=== PATIENT | female | born 1955 | race Caucasian/White ===

== ENCOUNTER 2020-08-25 | Outpatient (REF) | payer MEDICARE, SELFPAY ==
[2020-08-25 16:33] LABS: Glucose Urine UA NEG (NEG); Nitrite Urine NEG (NEG); Specific Gravity - Urine 1.015 (1.005-1.025); Urine Blood 3+ (NEG); Urine Ketones NEG (NEG); Urine Protein 2+ MG/DL (NEG-TRACE)
[2020-08-25 16:38] LABS: Appearance Urine CLOUDY; Color Urine YELLOW; Leukocyte Esterase Urine 3+ (NEG)
[2020-08-25 16:40] LABS: Bacteria Urine 2+ /LPF; WBC Urine 30-49 /HPF (0-4)
== END 2020-08-25 00:01 | disposition home or self-care (01) ==
LOC: CF
PROVIDERS: Visit Provider Internal Medicine
DX: R30.0 Dysuria (principal)
CPT/HCPCS: 81001; 87086; 87088; 87186

== ENCOUNTER 2021-02-23 11:42 | Outpatient (REF) | payer MEDICARE, SELFPAY ==
--- NOTE | ~2021-02-23 | MM_ITS ---
EXAMINATION: MM SCREENING DIGITAL BREAST TOMOSYNTHESIS, BILATERAL CLINICAL INFORMATION: Screening. Asymptomatic. History colon cancer. The lifetime risk of breast cancer based on the Tyrer-Cuzick Model is 4%. COMPARISON: Mammography: 11/16/2019, 10/14/2018, 09/15/2017 TECHNIQUE: Digital breast tomosynthesis is performed in both the craniocaudal and mediolateral oblique views along with computer-aided detection (CAD). Synthesized 2D images are generated from the tomosynthesis. FINDINGS: There are scattered areas of fibroglandular density (ACR BI-RADS breast composition Category b). There are no significant masses, abnormal calcifications, or other abnormalities. Parenchymal pattern is similar to prior studies. No developing density. There is a port partially overlying the posterior upper right axilla on the MLO view. MM/MM tomosynthesis screening BI IMPRESSION: No mammographic evidence of malignancy. ASSESSMENT: BI-RADS 2: Benign RECOMMENDATION: Routine annual mammography screening. This patient's information was entered into a reminder system with a target due date for their next mammogram.
== END 2021-02-23 11:43 | disposition home or self-care (01) ==
LOC: HO.MAMMO 11:42
PROVIDERS: PCP Internal Medicine; Visit Provider Internal Medicine
DX: Z12.31 Encounter for screening mammogram for malignant neoplasm of breast (principal)
CPT/HCPCS: 77063; 77067

== ENCOUNTER 2021-06-27 12:38 | Outpatient (REF) | payer MEDICARE, SELFPAY ==
--- NOTE | ~2021-06-27 | XR_ITS ---
EXAMINATION: XR SHOULDER, LEFT CLINICAL INFORMATION: Left shoulder pain. COMPARISON: None TECHNIQUE: AP external rotation, Grashey, scapular Y, and axillary views of the left shoulder. FINDINGS: Some minimal degenerative changes are present with some mild sclerotic changes at the inferior glenoid. The bones and soft tissues are otherwise normal. No fracture. Glenohumeral and acromioclavicular alignment is anatomic with normal joint space. No abnormal soft tissue calcifications. XR/XR shoulder LT min 2V IMPRESSION: Some minimal degenerative changes left shoulder.
[2021-06-27 13:56] LABS: Anion Gap 13 (12-20); Blood Urea Nitrogen 23 mg/dL (9-16); Calcium 9.5 mg/dL (8.4-10.2); Carbon Dioxide 24 mmol/L (22-29); Chloride 109 mmol/L (96-108); Estimated Glomerular Filt Rate 45; Glucose Random 105 mg/dL (60-115); Potassium 4.6 mmol/L (3.3-5.1); Sodium 141 mmol/L (135-145)
== END 2021-06-27 12:39 | disposition home or self-care (01) ==
LOC: HO.XRAY 12:38
PROVIDERS: PCP Internal Medicine; Visit Provider Internal Medicine
DX: I10 Essential (primary) hypertension (principal); N13.30 Unspecified hydronephrosis; M25.512 Pain in left shoulder
CPT/HCPCS: 36415; 73030; 80048

== ENCOUNTER 2022-01-01 16:32 | Outpatient (REF) | payer MEDICARE, SELFPAY ==
[2022-01-01 17:14] LABS: MANUAL DIFF FLAG NO
[2022-01-01 18:00] LABS: Basophils Percent Auto 0.2 % (0-2); Eosinophils Absolute Auto 0.2 X10*3/uL (0.0-0.4); Eosinophils Percent Auto 4.7 % (0-4); Hematocrit 36.6 % (37.0-47.0); Hemoglobin 11.6 g/dl (12.0-16.0); Imm Gran Abs Auto 0.02 X10*3/uL (0.00-0.03); Imm Gran Pct Auto 0.4 % (0.0-0.4); Lymphocytes Absolute Auto 0.9 X10*3/uL (1.2-4.9); Lymphocytes Percent Auto 18.6 % (20-40); Mean Corpuscular HGB Conc 31.7 g/dl (31.0-35.0); Mean Corpuscular Hemoglobin 28.1 pg (27.0-33.0); Mean Corpuscular Volume 88.6 fL (80.0-98.0); Monocytes Absolute Auto 0.7 X10*3/uL (0.1-1.2); Monocytes Percent Auto 14.7 % (2-11); Neutrophils Percent Auto 61.4 % (45-73); Platelet Count 251 X10*3/uL (160-400); Red Blood Count 4.13 X10*6/uL (4.20-5.50); Red Cell Distribution Width 13.4 % (11.0-16.0); White Blood Count 4.9 X10*3/uL (4.8-10.8)
[2022-01-01 18:25] LABS: Alanine Aminotransferase 18 U/L (0-31); Albumin Level 4.2 g/dL (3.5-5.0); Alkaline Phosphatase 84 U/L (39-117); Anion Gap 14 (12-20); Aspartate Amino Transferase 22 U/L (5-31); Bilirubin Total 0.3 mg/dL (0.0-1.0); Blood Urea Nitrogen 22 mg/dL (9-16); C Reactive Protein 1.92 mg/dL (< or = 0.50); Calcium 9.6 mg/dL (8.4-10.2); Carbon Dioxide 23 mmol/L (22-29); Chloride 108 mmol/L (96-108); Estimated Glomerular Filt Rate 39; Glucose Random 97 mg/dL (60-115); Potassium 4.6 mmol/L (3.3-5.1); Sodium 140 mmol/L (135-145); Total Protein 7.4 g/dL (6.5-8.0)
== END 2022-01-01 16:33 | disposition home or self-care (01) ==
LOC: HO.LAB 16:32
PROVIDERS: PCP Internal Medicine; Visit Provider Internal Medicine
DX: R21 Rash and other nonspecific skin eruption (principal)
CPT/HCPCS: 36415; 80053; 85025; 86140

== ENCOUNTER 2022-03-14 11:31 | Outpatient (REF) | payer MEDICARE, SELFPAY ==
--- NOTE | ~2022-03-14 | MM_ITS ---
EXAMINATION: MM SCREENING DIGITAL BREAST TOMOSYNTHESIS, BILATERAL CLINICAL INFORMATION: Screening. Asymptomatic. The lifetime risk of breast cancer based on the Tyrer-Cuzick Model is 4.8%. COMPARISON: Mammography: February 23, 2021 and studies dating back to June 14, 2014 TECHNIQUE: Digital breast tomosynthesis is performed in both the craniocaudal and mediolateral oblique views along with computer-aided detection (CAD). Synthesized 2D images are generated from the tomosynthesis. FINDINGS: There are scattered areas of fibroglandular density (ACR BI-RADS breast composition Category b). There are no significant masses, abnormal calcifications, or other abnormalities. MM/MM tomosynthesis screening BI IMPRESSION: There are no significant changes from prior study. ASSESSMENT: BI-RADS 1: Negative RECOMMENDATION: Routine annual mammography screening. This patient's information was entered into a reminder system with a target due date for their next mammogram.
== END 2022-03-14 11:32 | disposition home or self-care (01) ==
LOC: HO.MAMMO 11:31
PROVIDERS: Visit Provider Internal Medicine
DX: Z12.31 Encounter for screening mammogram for malignant neoplasm of breast (principal)
CPT/HCPCS: 77063; 77067

== ENCOUNTER 2022-09-30 15:28 | Inpatient (IN) | payer MEDICARE, SELFPAY ==
[2022-09-30] VITALS (9 sets, daily range): BP systolic 109–164; BP diastolic 48–70; PULSE 90–107; RESP 18–40; TEMP 36.3–37; O2SAT 87–98; BMI 23.8
--- NOTE | ~2022-09-30 | XR_ITS ---
EXAMINATION: XR CHEST CLINICAL INFORMATION: Shortness of breath and cough COMPARISON: Chest x-ray 01/29/2007 TECHNIQUE: Frontal view of the chest was obtained. FINDINGS: Lungs are mildly hypoinflated. No dense airspace consolidation. No pleural effusion or pneumothorax. The cardiomediastinal silhouette is within normal limits. There are diffusely increased coarsened reticular markings throughout both lungs with question of a couple small patchy/nodular opacities in the peripheral right lung base and right upper lung. Chronic bilateral rib fracture deformities noted. No acute osseous injury. XR/XR chest 1V IMPRESSION: Diffusely increased coarsened reticular markings throughout both lungs with question of a couple of small patchy/nodular opacities in the peripheral right lung base and right upper lung. Findings could be due to underlying interstitial lung disease or atypical/viral pneumonia. Pulmonary edemas is felt less likely given absence of effusions. Consider chest CT as indicated clinically.
--- NOTE | ~2022-09-30 | CT_ITS ---
EXAMINATION: CT CHEST WITHOUT CONTRAST CLINICAL INFORMATION: Shortness of breath, lung cancer COMPARISON: Chest x-ray performed earlier the same day TECHNIQUE: Multidetector volumetric CT imaging of the chest was done. Axial MIP volume rendering provided. Sagittal and coronal reformatted images were obtained. This CT examination was performed using dose optimization techniques as appropriate, variously including the following: *Automated exposure control *Adjustment of mA and/or kV according to patient size (this includes techniques or standardized protocols for targeted exams where dose is matched to indication/reason for exam; i.e. extremities or head) *Use of iterative reconstruction technique DLP: 218 mGy-cm FINDINGS: LUNGS: Somewhat limited assessment of the pulmonary parenchyma secondary to respiratory motion artifact. There is patchy airspace opacity/consolidation in the posterior segment right upper lobe and adjacent superior segment right lower lobe. Additionally, there is scattered bronchial wall thickening and multiple clusters of tree in bud like nodules scattered within both lungs right worse than left suggesting an endobronchial spread of infection. There are a few discrete small pulmonary nodules including a 5 mm left apical pulmonary nodule on series 5 image 56, 4 mm pleural-based left lower lobe nodule on image 322, and 5 mm right upper lobe nodule on image 175. The larger wedge-shaped nodular opacity is seen in the lingula abutting the major fissure. Moderate centrilobular emphysema. Central airways are clear. MEDIASTINUM: No cardiomegaly or pericardial effusion. No thoracic aortic aneurysm. Mild aortic vascular calcifications. Nondilated central pulmonary trunk. No mediastinal or hilar lymphadenopathy. Multiple nodular appearance of the thyroid gland, largest nodular conglomerate of nodules in the mid and lower gland measuring 2.4 cm in size with a few calcifications. Partially 2.4 cm inferiorly projecting nodule from the isthmus as well. CORONARY ARTERY CALCIFICATION: Present most extensively involving the LAD. PLEURA: No pleural effusion. AXILLA: No lymphadenopathy. UPPER ABDOMEN: Atrophic right kidney with ureteral stent noted. 1.5 cm low-density benign-appearing cyst in the anterior left mid upper pole. No further follow-up required. OSSEOUS STRUCTURES: Exaggerated thoracic kyphosis. Chronic height loss of T7-T9 vertebral bodies and multilevel degenerative disc disease. Vertebral body hemangioma at T12. Band of trabecular sclerosis through the anterior half of the L1 vertebral body. Finding may be due to prior healed fracture. Chronic/healed bilateral rib fracture deformities. CT/CT chest wo IV con IMPRESSION: 1. Patchy airspace opacity/consolidation in the posterior segment right upper lobe and adjacent superior segment right lower lobe compatible with pneumonia. 2. Scattered tree-in-bud nodules and bronchial wall thickening is commonly seen in the setting of endobronchial spread of infection. 3. A few discrete solid pulmonary nodules measuring up to 5 mm in size, as above. Cannot exclude pulmonary metastasis. No priors available to assess for change. Larger nodule versus focal area of nodular atelectasis or scarring in the lingula. 4. Moderate centrilobular emphysema. 5. Multiple thyroid nodules, the largest measuring 2.4 cm in size. Suggest correlation with history and thyroid ultrasound as clinically appropriate. 6. Centrilobular emphysema. 7. Atrophic right kidney with ureteral stent in place. 8. Chronic height loss of T7-T9 vertebral bodies and multilevel degenerative disc disease.
--- NOTE | 2022-09-30 15:30 | ED_ITS ---
HPI - General Adult General Chief complaint: General Medical Stated complaint: SOB, Resp rate 20-44, crackles in both lung Time Seen by Provider: 09/30/22 15:58 Related Data Home Medications Medication Instructions Recorded Confirmed acetaminophen 325 mg tablet 650 mg PO Q6H PRN Pain 09/30/22 09/30/22 amlodipine 5 mg tablet 1 tab PO DAILY 09/30/22 09/30/22 Allergies Allergy/AdvReac Type Severity Reaction Status Date / Time infliximab [Remicade] AdvReac Unknown arthralgia Verified 09/30/22 15:37 salacyclic acid wart remover Allergy Unknown hives, Uncoded 09/30/22 15:37 swollen joints Asacol AdvReac Unknown GI upset Uncoded 09/30/22 15:37 PMFSH Past Medical History Medical History Cancer of colon with rectum Hypertension Lung cancer Ureteral stent present Surgical History Hx of appendectomy Hx of tonsillectomy Social History Social History Alcohol intake: never Smoked in Last 30 Days: No Use of substances other than those prescribed or required for medical reasons: No Advance Directives: No Advance Directives Information Provided: No service: No Current occupational status: disabled Physical Exam ED Vital Signs: Vital Signs - 24 hr 09/30/22 16:17 09/30/22 16:31 09/30/22 18:00 Temperature 98.6 F Pulse Rate 107 H 105 H 99 Respiratory Rate 18 22 H 18 Blood Pressure 147/70 H 134/48 L Pulse Oximetry 98 94 Oxygen Delivery Method Nasal Cannula Nasal Cannula Oxygen Flow Rate 3 3.5 BMI result Body Mass Index 23.8 Course Reevaluation(s) Reevaluation #1: RME: 67 year old female hx of lung cancer, HTN brought in by Dr. Padron presenting w/ URI sx X7 days reports thick productive cough, anorexia, weakness, sob and labored breahting. Denies chest pain, fevers, chills, nausea, vomiting, abd pain, headache, vision changes, dizziness. Not on thinners. No Hx of DVT/PE. Former smoker stopped 2.5 years ago PE: b/l crackles, tachypnic 26, hypoxic 86% not oxygen dependent, tachycardic labored breathing Plan: labs, cultures, lactic, CXR Spoke to charge to bring her right in Time: 15:32 Medications Administered Generic Name Dose Route Start Last Admin Trade Name Kody PRN Reason Stop Dose Admin Albuterol/Ipratropium 3 ml 10/01/22 08:00 10/01/22 11:35 Albuterol/Iprat 2.5/0.5mg 3 Ml Ampul.Neb INHALE 3 ml RQ4H WHILE AWAKE NIEVES Administration Amlodipine Besylate 5 mg 10/01/22 09:00 10/01/22 08:21 Amlodipine Besylate 5 Mg Tablet PO 5 mg DAILY NIEVES Administration Protocol Enoxaparin Sodium 40 mg 09/30/22 21:00 09/30/22 20:57 Enoxaparin Sodium 40 Mg/0.4 Ml Syringe SUBCUT 40 mg Q24H NIEVES Administration Insulin Human Lispro 0 unit 10/01/22 07:30 10/01/22 13:21 Insulin Lispro 100 Unit/Ml 3 Ml Vial SUBCUT 2 unit QIDACHS NIEVES Administration Protocol Prednisone 40 mg 10/01/22 09:00 10/01/22 08:21 Prednisone 20 Mg Tablet PO 40 mg DAILY NIEVES Administration Sodium Chloride 3 ml 10/01/22 00:00 10/01/22 07:53 0.9 % Sodium Chloride Flush 3 Ml Syringe IVFLUSH 3 ml QSHIFT NIEVES Administration Discontinued Medications Generic Name Dose Route Start Last Admin Trade Name Kody PRN Reason Stop Dose Admin Albuterol Sulfate 7.5 mg/ 10 mg 09/30/22 16:04 09/30/22 16:15 Albuterol Sulfate 2.5 mg INHALE 09/30/22 16:05 10 mg ONCE ONE Administration Albuterol/Ipratropium 3 ml 09/30/22 21:18 09/30/22 21:52 Albuterol/Iprat 2.5/0.5mg 3 Ml Ampul.Neb INHALE 09/30/22 21:19 3 ml ONCE ONE Administration Azithromycin 500 mg 09/30/22 16:51 09/30/22 17:09 Azithromycin 500 Mg Tablet PO 09/30/22 16:52 500 mg ONCE ONE Administration Magnesium Sulfate 2 gm in 50 mls @ 25 mls/hr 09/30/22 16:04 09/30/22 17:10 Magnesium Sulfate/H2o IV 09/30/22 18:03 Infused ONCE ONE Infusion Ceftriaxone Sodium 1 gm/ 50 mls @ 100 mls/hr 09/30/22 16:51 09/30/22 17:40 Sodium Chloride IV 09/30/22 17:20 Infused ONCE ONE Infusion Sodium Chloride 1,000 mls @ 999 mls/hr 09/30/22 18:00 09/30/22 19:51 Ns IVCONT 09/30/22 19:00 Infused .Q1H1M NIEVES Infusion Sodium Chloride 1,000 mls @ 999 mls/hr 09/30/22 18:15 09/30/22 22:08 Ns IVCONT 09/30/22 19:15 Infused .Q1H1M NIEVES Infusion Methylprednisolone Sodium Succinate 125 mg 09/30/22 16:04 09/30/22 16:26 Methylprednisolone Sod Succ 125 Mg/2 Ml Vial IVPUSH 09/30/22 16:05 125 mg ONCE ONE Administration Medical Decision Making Lab Data Result diagrams: 10/01/22 06:08 10/01/22 06:08 Labs: Lab Results 09/30/22 09/30/22 09/30/22 Range/Units 17:08 17:08 17:08 WBC 13.4 H (4.8-10.8) X10*3/uL RBC 4.30 (4.20-5.50) X10*6/uL Hgb 12.0 (12.0-16.0) g/dl Hct 37.1 (37.0-47.0) % MCV 86.3 (80.0-98.0) fL MCH 27.9 (27.0-33.0) pg MCHC 32.3 (31.0-35.0) g/dl RDW 15.0 (11.0-16.0) % Plt Count 414 H D (160-400) X10*3/uL MPV 9.8 (9.4-12.3) fL Immature Gran % (Auto) 2.2 H (0.0-0.4) % Neut % (Auto) 84.7 H (45-73) % Lymph % (Auto) 6.2 L (20-40) % [place] % (Auto) 6.4 (2-11) % Eos % (Auto) 0.2 (0-4) % Baso % (Auto) 0.3 (0-2) % Lymph # (Auto) 0.8 L (1.2-4.9) X10*3/uL [place] # (Auto) 0.9 (0.1-1.2) X10*3/uL Eos # (Auto) 0.0 (0.0-0.4) X10*3/uL Baso # (Auto) 0.0 (0.0-0.2) X10*3/uL Abs Immat Gran (auto) 0.30 H (0.00-0.03) X10*3/uL Absolute Neuts (auto) 11.3 H (2.0-8.3) x10*3/uL Absolute Nucleated RBC 0.020 H (0.0-0.012) X10*3/uL Nucleated RBC % (auto) 0.1 (0.0-0.2) /100WBC Smear Tech's Comments VERIFIED D-Dimer High Sensitivty 1571 NG/ML VBG pH (7.32-7.43) VBG pCO2 mmHg VBG pO2 mmHg VBG HCO3 (22-26) mmol/L VBG O2 Saturation % VBG Base Excess mmol/L Lactic Acid (0.5-2.0) mmol/L Troponin I High Sens (<3.5-17.0) ng/L B-Natriuretic Peptide 42 (<100) pg/mL Influenza Type A (PCR) (Negative) Influenza Type B (PCR) (Negative) RSV RNA Qual (PCR) (Negative) SARS-CoV-2 RNA (RT-PCR) (Negative) 09/30/22 09/30/22 09/30/22 Range/Units 17:08 17:08 17:08 WBC (4.8-10.8) X10*3/uL RBC (4.20-5.50) X10*6/uL Hgb (12.0-16.0) g/dl Hct (37.0-47.0) % MCV (80.0-98.0) fL MCH (27.0-33.0) pg MCHC (31.0-35.0) g/dl RDW (11.0-16.0) % Plt Count (160-400) X10*3/uL MPV (9.4-12.3) fL Immature Gran % (Auto) (0.0-0.4) % Neut % (Auto) (45-73) % Lymph % (Auto) (20-40) % Huntington % (Auto) (2-11) % Eos % (Auto) (0-4) % Baso % (Auto) (0-2) % Lymph # (Auto) (1.2-4.9) X10*3/uL Huntington # (Auto) (0.1-1.2) X10*3/uL Eos # (Auto) (0.0-0.4) X10*3/uL Baso # (Auto) (0.0-0.2) X10*3/uL Abs Immat Gran (auto) (0.00-0.03) X10*3/uL Absolute Neuts (auto) (2.0-8.3) x10*3/uL Absolute Nucleated RBC (0.0-0.012) X10*3/uL Nucleated RBC % (auto) (0.0-0.2) /100WBC Smear Tech's Comments D-Dimer High Sensitivty NG/ML VBG pH (7.32-7.43) VBG pCO2 mmHg VBG pO2 mmHg VBG HCO3 (22-26) mmol/L VBG O2 Saturation % VBG Base Excess mmol/L Lactic Acid 2.3 H* (0.5-2.0) mmol/L Troponin I High Sens 11.8 (<3.5-17.0) ng/L B-Natriuretic Peptide (<100) pg/mL Influenza Type A (PCR) NEGATIVE (Negative) Influenza Type B (PCR) NEGATIVE (Negative) RSV RNA Qual (PCR) NEGATIVE (Negative) SARS-CoV-2 RNA (RT-PCR) NEGATIVE (Negative) 09/30/22 Range/Units 17:28 WBC (4.8-10.8) X10*3/uL RBC (4.20-5.50) X10*6/uL Hgb (12.0-16.0) g/dl Hct (37.0-47.0) % MCV (80.0-98.0) fL MCH (27.0-33.0) pg MCHC (31.0-35.0) g/dl RDW (11.0-16.0) % Plt Count (160-400) X10*3/uL MPV (9.4-12.3) fL Immature Gran % (Auto) (0.0-0.4) % Neut % (Auto) (45-73) % Lymph % (Auto) (20-40) % Huntington % (Auto) (2-11) % Eos % (Auto) (0-4) % Baso % (Auto) (0-2) % Lymph # (Auto) (1.2-4.9) X10*3/uL Huntington # (Auto) (0.1-1.2) X10*3/uL Eos # (Auto) (0.0-0.4) X10*3/uL Baso # (Auto) (0.0-0.2) X10*3/uL Abs Immat Gran (auto) (0.00-0.03) X10*3/uL Absolute Neuts (auto) (2.0-8.3) x10*3/uL Absolute Nucleated RBC (0.0-0.012) X10*3/uL Nucleated RBC % (auto) (0.0-0.2) /100WBC Smear Tech's Comments D-Dimer High Sensitivty NG/ML VBG pH 7.31 L (7.32-7.43) VBG pCO2 38 mmHg VBG pO2 40 mmHg VBG HCO3 19 L (22-26) mmol/L VBG O2 Saturation 53.0 % VBG Base Excess -5.7 mmol/L Lactic Acid (0.5-2.0) mmol/L Troponin I High Sens (<3.5-17.0) ng/L B-Natriuretic Peptide (<100) pg/mL Influenza Type A (PCR) (Negative) Influenza Type B (PCR) (Negative) RSV RNA Qual (PCR) (Negative) SARS-CoV-2 RNA (RT-PCR) (Negative) Discharge Plan Discharge Clinical Impression: Pneumonia, Hypoxia, Lung cancer, Colon cancer Patient Disposition: Admitted As Inpatient
--- NOTE | 2022-09-30 15:33 | ECG_ITS ---
Test Reason : PNEUMONIA Blood Pressure : / mmHG Vent. Rate : 097 BPM Atrial Rate : 097 BPM P-R Int : 160 ms QRS Dur : 108 ms QT Int : 358 ms P-R-T Axes : 049 037 042 degrees QTc Int : 454 ms Sinus rhythm with Premature atrial complexes Right bundle branch block Nonspecific T wave abnormality Inferior leads Abnormal ECG When compared with ECG of 19-JAN-2003 13:59, Premature atrial complexes are now Present Vent. rate has increased BY 42 BPM T wave amplitude has decreased in Inferior leads Referred By: Elisabet Napoles Electronically Signed By:ADLAGISA ALVAREZ MD
--- NOTE | 2022-09-30 16:11 | ED_ITS ---
HPI - SOB/Dyspnea General Chief Complaint: General Medical Stated Complaint: SOB, Resp rate 20-44, crackles in both lung Time Seen by Provider: 09/30/22 15:58 Source: patient and family Mode of arrival: wheelchair Limitations: no limitations History of Present Illness HPI Narrative: 67-year-old female presents with shortness of breath, and upper respiratory symptoms. Patient has a history of lung cancer, colon cancer with colostomy, and is currently being treated at [facility]. Patient is tachypneic, hypoxic, and appears tired. MD elicited complaint: shortness of breath and cough Pertinent past history: other (Lung cancer) Onset (ago): day(s) (7) Context: recent illness Timing: constant and progressively worsening Severity: moderate Exacerbating factors: lying flat, exertion and coughing Relieving factors: oxygen and rest Associated symptoms: cough, wheezing, orthopnea and chest congestion Treatment prior to arrival: oxygen Related Data Home oxygen amount: none Home Medications Medication Instructions Recorded Confirmed acetaminophen 325 mg tablet 650 mg PO Q6H PRN Pain 09/30/22 09/30/22 amlodipine 5 mg tablet 1 tab PO DAILY 09/30/22 09/30/22 Allergies Allergy/AdvReac Type Severity Reaction Status Date / Time infliximab [Remicade] AdvReac Unknown arthralgia Verified 09/30/22 15:37 salacyclic acid wart remover Allergy Unknown hives, Uncoded 09/30/22 15:37 swollen joints Asacol AdvReac Unknown GI upset Uncoded 09/30/22 15:37 Review of Systems Review of Systems: Constitutional: No Fever, No Chills ENT/Mouth: No Ear Pain, No Hoarseness, No sore throat Eyes: No Eye Pain, No Swelling, No Redness, No Foreign Body Cardiovascular: No Chest Pain, positive SOB Respiratory: Positive hypoxia, Positive wheezing, positive Cough, positive Dyspnea Gastrointestinal: No Nausea, No Vomiting, No Diarrhea, No abdominal Pain Genitourinary: No Dysuria, No Hematuria Musculoskeletal: No joint pain, No Myalgias, No Joint Swelling Skin: No Skin lacerations, No rash Neuro: No Weakness, No Numbness, No Paresthesias, No Loss of Consciousness, No Dizziness, No Headache Psych: No Anxiety/Panic, No Depression Heme/Lymph: no easy bruising, no Lymphadenopathy Endocrine: No Polyuria, No Polydipsia Yes all other systems are reviewed and are negative [facility] Past Medical History Attestation statement: The following information was validated with the patient. Source: old records reviewed Medical History (Updated 09/30/22 @ 21:17 by Susie Lopez MD) Cancer of colon with rectum Hypertension Lung cancer Ureteral stent present Surgical History Hx of appendectomy Hx of tonsillectomy Social History Social History Alcohol intake: never Smoked in Last 30 Days: No Use of substances other than those prescribed or required for medical reasons: No Advance Directives: No Advance Directives Information Provided: No Physical Exam Vital Signs: Vital Signs: Last Vital Signs Temp 98.6 F 09/30/22 18:00 Pulse 100 09/30/22 20:55 Resp 20 09/30/22 20:55 BP 142/66 H 09/30/22 20:55 Pulse Ox 93 09/30/22 20:55 O2 Del Method 09/30/22 20:55 O2 Flow Rate 3 09/30/22 20:55 BMI result Body Mass Index 23.8 Appearance: Alert. Oriented X3. Moderate distress. Eyes: Pupils equal, round and reactive to light. ENT: Pharynx normal. Neck: Normal inspection. Neck supple. CVS: Normal heart rate and rhythm. Pulses normal. Respiratory: Tachypneic. Hypoxic. Moderate respiratory distress. Coarse lung sounds throughout. Abdomen: Soft and nontender. Colostomy bag in place. Skin: Skin warm and dry. Normal skin color. Normal skin turgor. Extremities: No lower extremity edema. Moves all extremities against resistance. Gait not assessed for safety. Neuro: No motor deficit. No sensory deficit. Cranial nerves 2-12 intact. Course Course Course Narrative: 67-year-old female presents for hypoxia, upper respiratory symptoms, and dyspnea. 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 Patient had radiation in the lesion to 2 spots on her lungs, has a diagnosis of emphysema, and quit smoking 2 and half years ago after 40 years of smoking. Patient does not report illicit drug use or alcohol. Patient has been sick with an upper respiratory infection for about a week, does not report fevers or chills, but is not able to speak in complete sentences, is hypoxic and was requiring oxygen to maintain O2 saturation above 90%. Upon arrival she was 86- 87%, and is on 4 L at this time. She does not use oxygen at home. Will order labs, CT scan of the chest, and give Solu-Medrol, magnesium, and albuterol neb hour long. She denies fevers, edema, and changes in vision. She does report recent treatment at [facility] for colon and lung cancer. Records requested. 16:02 patient is tachypneic, hypoxic on 2 L at 89% on room air on 2 L nasal cannula, O2 bumped up at to 4 L by this [employer], repositioned to a high Shaw's position almost 90 degrees, lung sounds are coarse with diminished air flow bilateral lower lobes with expiratory and inspiratory wheezing throughout. Labs are pending. 16:25 x-rays indicate pneumonia, order for ceftriaxone and azithromycin. CT scan is pending. Labs are pending at this time. 17:50 white count 13.4, respiration rate upon admission was 40 with an O2 sat of 87% on room air. Patient does meet SIRS criteria at this time, order for 0.9% will L fluid saline, lactic and chemistries are pending. Should labs indicate sepsis, I will amend fluid order at that time. 18:08 lactic acid 2.3, 2 L of fluid ordered at this time. 30 milliliters/kilogram fluid resuscitation volume 1890. Patient currently on 4 L with even unlabored respiration, O2 sat 95%. Able to speak in complete sentences. 18:35, influenza RSV COVID negative. CT scan pending. Chemistries pending. 20:50 patient admitted by hospitalist for hypoxia, pneumonia. Chemistries are still pending Consultations Consultation #1: John Time: 20:50 Medications Administered Generic Name Dose Route Start Last Admin Trade Name Freq PRN Reason Stop Dose Admin Enoxaparin Sodium 40 mg 09/30/22 21:00 09/30/22 20:57 Enoxaparin Sodium 40 Mg/0.4 Ml Syringe SUBCUT 40 mg Q24H NIEVES Administration Discontinued Medications Generic Name Dose Route Start Last Admin Trade Name Freq PRN Reason Stop Dose Admin Albuterol Sulfate 7.5 mg/ 10 mg 09/30/22 16:04 09/30/22 16:15 Albuterol Sulfate 2.5 mg INHALE 09/30/22 16:05 10 mg ONCE ONE Administration Azithromycin 500 mg 09/30/22 16:51 09/30/22 17:09 Azithromycin 500 Mg Tablet PO 09/30/22 16:52 500 mg ONCE ONE Administration Magnesium Sulfate 2 gm in 50 mls @ 25 mls/hr 09/30/22 16:04 09/30/22 17:10 Magnesium Sulfate/H2o IV 09/30/22 18:03 Infused ONCE ONE Infusion Ceftriaxone Sodium 1 gm/ 50 mls @ 100 mls/hr 09/30/22 16:51 09/30/22 17:40 Sodium Chloride IV 09/30/22 17:20 Infused ONCE ONE Infusion Sodium Chloride 1,000 mls @ 999 mls/hr 09/30/22 18:00 09/30/22 19:51 Ns IVCONT 09/30/22 19:00 Infused .Q1H1M NIEVES Infusion Sodium Chloride 1,000 mls @ 999 mls/hr 09/30/22 18:15 09/30/22 19:21 Ns IVCONT 09/30/22 19:15 999 mls/hr .Q1H1M NIEVES Administration Methylprednisolone Sodium Succinate 125 mg 09/30/22 16:04 09/30/22 16:26 Methylprednisolone Sod Succ 125 Mg/2 Ml Vial IVPUSH 09/30/22 16:05 125 mg ONCE ONE Administration MDM - SOB/Dyspnea Differential Diagnosis Differential diagnosis: Likely acute exacerbation of chronic obstructive airways disease, congestive heart failure, pneumonia, pulmonary embolism, pleural effusion and anemia Medical Records Attestation: I reviewed the patient's medical records. Lab Data Attestation: I reviewed the patient's lab results. Result diagrams: 09/30/22 17:08 09/30/22 20:38 Labs: Lab Results 09/30/22 09/30/22 09/30/22 Range/Units 17:08 17:08 17:08 WBC 13.4 H (4.8-10.8) X10*3/uL RBC 4.30 (4.20-5.50) X10*6/uL Hgb 12.0 (12.0-16.0) g/dl Hct 37.1 (37.0-47.0) % MCV 86.3 (80.0-98.0) fL MCH 27.9 (27.0-33.0) pg MCHC 32.3 (31.0-35.0) g/dl RDW 15.0 (11.0-16.0) % Plt Count 414 H D (160-400) X10*3/uL MPV 9.8 (9.4-12.3) fL Immature Gran % (Auto) 2.2 H (0.0-0.4) % Neut % (Auto) 84.7 H (45-73) % Lymph % (Auto) 6.2 L (20-40) % Rapides % (Auto) 6.4 (2-11) % Eos % (Auto) 0.2 (0-4) % Baso % (Auto) 0.3 (0-2) % Lymph # (Auto) 0.8 L (1.2-4.9) X10*3/uL Rapides # (Auto) 0.9 (0.1-1.2) X10*3/uL Eos # (Auto) 0.0 (0.0-0.4) X10*3/uL Baso # (Auto) 0.0 (0.0-0.2) X10*3/uL Abs Immat Gran (auto) 0.30 H (0.00-0.03) X10*3/uL Absolute Neuts (auto) 11.3 H (2.0-8.3) x10*3/uL Absolute Nucleated RBC 0.020 H (0.0-0.012) X10*3/uL Nucleated RBC % (auto) 0.1 (0.0-0.2) /100WBC Smear Tech's Comments VERIFIED D-Dimer High Sensitivty 1571 NG/ML VBG pH (7.32-7.43) VBG pCO2 mmHg VBG pO2 mmHg VBG HCO3 (22-26) mmol/L VBG O2 Saturation % VBG Base Excess mmol/L Lactic Acid (0.5-2.0) mmol/L Troponin I High Sens (<3.5-17.0) ng/L B-Natriuretic Peptide 42 (<100) pg/mL Influenza Type A (PCR) (Negative) Influenza Type B (PCR) (Negative) RSV RNA Qual (PCR) (Negative) SARS-CoV-2 RNA (RT-PCR) (Negative) 09/30/22 09/30/22 09/30/22 Range/Units 17:08 17:08 17:08 WBC (4.8-10.8) X10*3/uL RBC (4.20-5.50) X10*6/uL Hgb (12.0-16.0) g/dl Hct (37.0-47.0) % MCV (80.0-98.0) fL MCH (27.0-33.0) pg MCHC (31.0-35.0) g/dl RDW (11.0-16.0) % Plt Count (160-400) X10*3/uL MPV (9.4-12.3) fL Immature Gran % (Auto) (0.0-0.4) % Neut % (Auto) (45-73) % Lymph % (Auto) (20-40) % Rapides % (Auto) (2-11) % Eos % (Auto) (0-4) % Baso % (Auto) (0-2) % Lymph # (Auto) (1.2-4.9) X10*3/uL Rapides # (Auto) (0.1-1.2) X10*3/uL Eos # (Auto) (0.0-0.4) X10*3/uL Baso # (Auto) (0.0-0.2) X10*3/uL Abs Immat Gran (auto) (0.00-0.03) X10*3/uL Absolute Neuts (auto) (2.0-8.3) x10*3/uL Absolute Nucleated RBC (0.0-0.012) X10*3/uL Nucleated RBC % (auto) (0.0-0.2) /100WBC Smear Tech's Comments D-Dimer High Sensitivty NG/ML VBG pH (7.32-7.43) VBG pCO2 mmHg VBG pO2 mmHg VBG HCO3 (22-26) mmol/L VBG O2 Saturation % VBG Base Excess mmol/L Lactic Acid 2.3 H* (0.5-2.0) mmol/L Troponin I High Sens 11.8 (<3.5-17.0) ng/L B-Natriuretic Peptide (<100) pg/mL Influenza Type A (PCR) NEGATIVE (Negative) Influenza Type B (PCR) NEGATIVE (Negative) RSV RNA Qual (PCR) NEGATIVE (Negative) SARS-CoV-2 RNA (RT-PCR) NEGATIVE (Negative) 09/30/22 Range/Units 17:28 WBC (4.8-10.8) X10*3/uL RBC (4.20-5.50) X10*6/uL Hgb (12.0-16.0) g/dl Hct (37.0-47.0) % MCV (80.0-98.0) fL MCH (27.0-33.0) pg MCHC (31.0-35.0) g/dl RDW (11.0-16.0) % Plt Count (160-400) X10*3/uL MPV (9.4-12.3) fL Immature Gran % (Auto) (0.0-0.4) % Neut % (Auto) (45-73) % Lymph % (Auto) (20-40) % Rapides % (Auto) (2-11) % Eos % (Auto) (0-4) % Baso % (Auto) (0-2) % Lymph # (Auto) (1.2-4.9) X10*3/uL Rapides # (Auto) (0.1-1.2) X10*3/uL Eos # (Auto) (0.0-0.4) X10*3/uL Baso # (Auto) (0.0-0.2) X10*3/uL Abs Immat Gran (auto) (0.00-0.03) X10*3/uL Absolute Neuts (auto) (2.0-8.3) x10*3/uL Absolute Nucleated RBC (0.0-0.012) X10*3/uL Nucleated RBC % (auto) (0.0-0.2) /100WBC Smear Tech's Comments D-Dimer High Sensitivty NG/ML VBG pH 7.31 L (7.32-7.43) VBG pCO2 38 mmHg VBG pO2 40 mmHg VBG HCO3 19 L (22-26) mmol/L VBG O2 Saturation 53.0 % VBG Base Excess -5.7 mmol/L Lactic Acid (0.5-2.0) mmol/L Troponin I High Sens (<3.5-17.0) ng/L B-Natriuretic Peptide (<100) pg/mL Influenza Type A (PCR) (Negative) Influenza Type B (PCR) (Negative) RSV RNA Qual (PCR) (Negative) SARS-CoV-2 RNA (RT-PCR) (Negative) Imaging Data Chest x-ray: Attestation: I personally reviewed and interpreted this imaging study as follows: Radiologist's impression: EXAMINATION: XR CHEST CLINICAL INFORMATION: Shortness of breath and cough COMPARISON: Chest x-ray 01/29/2007 TECHNIQUE: Frontal view of the chest was obtained. FINDINGS: Lungs are mildly hypoinflated. No dense airspace consolidation. No pleural effusion or pneumothorax. The cardiomediastinal silhouette is within normal limits. There are diffusely increased coarsened reticular markings throughout both lungs with question of a couple small patchy/nodular opacities in the peripheral right lung base and right upper lung. Chronic bilateral rib fracture deformities noted. No acute osseous injury. XR/XR chest 1V IMPRESSION: Diffusely increased coarsened reticular markings throughout both lungs with question of a couple of small patchy/nodular opacities in the peripheral right lung base and right upper lung. Findings could be due to underlying interstitial lung disease or atypical/viral pneumonia. Pulmonary edemas is felt less likely given absence of effusions. Consider chest CT as indicated clinically. CT scan - chest: Attestation: I personally reviewed and interpreted this imaging study as follows: Radiologist's impression: FINDINGS: LUNGS: Somewhat limited assessment of the pulmonary parenchyma secondary to respiratory motion artifact. There is patchy airspace opacity/consolidation in the posterior segment right upper lobe and adjacent superior segment right lower lobe. Additionally, there is scattered bronchial wall thickening and multiple clusters of tree in bud like nodules scattered within both lungs right worse than left suggesting an endobronchial spread of infection. There are a few discrete small pulmonary nodules including a 5 mm left apical pulmonary nodule on series 5 image 56, 4 mm pleural-based left lower lobe nodule on image 322, and 5 mm right upper lobe nodule on image 175. The larger wedge-shaped nodular opacity is seen in the lingula abutting the major fissure. Moderate centrilobular emphysema. Central airways are clear. MEDIASTINUM: No cardiomegaly or pericardial effusion. No thoracic aortic aneurysm. Mild aortic vascular calcifications. Nondilated central pulmonary trunk. No mediastinal or hilar lymphadenopathy. Multiple nodular appearance of the thyroid gland, largest nodular conglomerate of nodules in the mid and lower gland measuring 2.4 cm in size with a few calcifications. Partially 2.4 cm inferiorly projecting nodule from the isthmus as well.? CORONARY ARTERY CALCIFICATION: Present most extensively involving the LAD. PLEURA: No pleural effusion.? AXILLA: No lymphadenopathy.? UPPER ABDOMEN: Atrophic right kidney with ureteral stent noted. 1.5 cm low-density benign-appearing cyst in the anterior left mid upper pole. No further follow-up required.? OSSEOUS STRUCTURES: Exaggerated thoracic kyphosis. Chronic height loss of T7-T9 vertebral bodies and multilevel degenerative disc disease. Vertebral body hemangioma at T12. Band of trabecular sclerosis through the anterior half of the L1 vertebral body. Finding may be due to prior healed fracture. Chronic/healed bilateral rib fracture deformities. CT/CT chest wo IV con IMPRESSION: 1.? Patchy airspace opacity/consolidation in the posterior segment right upper lobe and adjacent superior segment right lower lobe compatible with pneumonia. 2.? Scattered tree-in-bud nodules and bronchial wall thickening is commonly seen in the setting of endobronchial spread of infection. 3.? A few discrete solid pulmonary nodules measuring up to 5 mm in size, as above. Cannot exclude pulmonary metastasis. No priors available to assess for change. Larger nodule versus focal area of nodular atelectasis or scarring in the lingula. 4.? Moderate centrilobular emphysema. 5.? Multiple thyroid nodules, the largest measuring 2.4 cm in size. Suggest correlation with history and thyroid ultrasound as clinically appropriate. 6.? Centrilobular emphysema. 7.? Atrophic right kidney with ureteral stent in place. 8.? Chronic height loss of T7-T9 vertebral bodies and multilevel degenerative disc disease. ECG Data Attestation: I personally reviewed and interpreted this ECG as follows: ECG interpretation date: 09/30/22 ECG interpretation time: 19:50 Prior ECG tracings: available for review Interpretation: Vent. rate 97 BPM WY interval 160 ms QRS duration 108 ms QT/QTc 358/454 ms P-R-T axes 49 37 42 Sinus rhythm with Premature atrial complexes Right bundle branch block Abnormal ECG When compared with ECG of 19-JAN-2003 13:59, Premature atrial complexes are now Present Vent. rate has increased BY 42 BPM Inverted T waves have replaced nonspecific T wave abnormality in Inferior leads Critical Care Time Critical Care Time Critical Care Time: Yes Total Critical Care Time: 65 Attestation: Thank you for choosing this emergency department for evaluation. Please follow-up with primary care physician as needed. Return to the emergency department for any new, concerning, or worsening symptoms. Discharge Plan Discharge Clinical Impression: Pneumonia, Hypoxia, Lung cancer, Colon cancer Patient Disposition: Admitted As Inpatient
[2022-09-30] MEDS: Albuterol Sulfate 7.5 MG, Albuterol Sulfate (0.083%) 2.5 MG 10 MG INHALE (16:15)
[2022-09-30] MEDS: methylPREDNISolone Sod Succ 125 MG/2 ML VIAL IVPUSH (16:26)
[2022-09-30] MEDS: Magnesium Sulfate/H2O 2 GM/50 ML PIGGYBACK IV (16:26)
[2022-09-30] MEDS: Azithromycin 500 MG TABLET PO (17:09)
[2022-09-30] MEDS: cefTRIAXone sodium 1 GM in 0.9 % Sodium Chloride 50 ML IV (17:10)
[2022-09-30 17:35] LABS: Eosinophils Percent Auto 0.2 % (0-4); Mean Corpuscular HGB Conc 32.3 g/dl (31.0-35.0); Mean Corpuscular Hemoglobin 27.9 pg (27.0-33.0); Mean Platelet Volume 9.8 fL (9.4-12.3); Monocytes Percent Auto 6.4 % (2-11); NRBC Pct Auto 0.1 /100WBC (0.0-0.2); PLT CLUMP 1; SCAN SMEAR FLAG 1
[2022-09-30 17:35] LABS: VBG Base Excess -5.7 mmol/L; VBG HCO3 19 mmol/L (22-26); VBG pCO2 38 mmHg; VBG pH 7.31 (7.32-7.43); VBG pO2 40 mmHg
[2022-09-30 17:37] LABS: Venous Blood Gas Refer to POC result
[2022-09-30 17:38] LABS: Basophils Percent Auto 0.3 % (0-2); Hematocrit 37.1 % (37.0-47.0); Imm Gran Pct Auto 2.2 % (0.0-0.4); Lymphocytes Absolute Auto 0.8 X10*3/uL (1.2-4.9); Lymphocytes Percent Auto 6.2 % (20-40); MANUAL DIFF FLAG SCAN; Mean Corpuscular Volume 86.3 fL (80.0-98.0); Monocytes Absolute Auto 0.9 X10*3/uL (0.1-1.2); Neutrophils Absolute Auto 11.3 x10*3/uL (2.0-8.3); Neutrophils Percent Auto 84.7 % (45-73)
[2022-09-30 17:42] LABS: White Blood Count 13.4 X10*3/uL (4.8-10.8)
[2022-09-30 17:49] LABS: D Dimer High Sensitivity 1571 NG/ML
[2022-09-30 17:55] LABS: B Type Natriuretic Peptide 42 pg/mL (<100); Troponin-I High Sensitivity 11.8 ng/L (<3.5-17.0)
[2022-09-30] MEDS: 0.9 % Sodium Chloride 1,000 ML 999 ML IVCONT ×2 (17:55→19:21)
--- NOTE | 2022-09-30 17:59 | PC.NURSE ---
patient a&ox3, vss, ivf started per order, no c/o pain or discomfort, will notify tech to do the ekg, call ibanez within reach, will continue to monitor
[2022-09-30 18:08] LABS: Lactic Acid 2.3 mmol/L (0.5-2.0)
[2022-09-30 18:15] LABS: Platelet Count 414 X10*3/uL (160-400); SLIDE REVIEW VERIFIED
[2022-09-30 18:27] LABS: Influenza A PCR NEGATIVE (Negative); Influenza B PCR NEGATIVE (Negative); Resp Syncy Virus RNA Qual PCR NEGATIVE (Negative); SARS COV2 PCR INHOUSE NEGATIVE (Negative)
[2022-09-30 19:30] LABS: Reflex Lactate? Lactic Acid Added
--- NOTE | 2022-09-30 20:47 | PHA.MEDREC ---
Pharmacy Consult ? Medication Reconciliation Pharmacy has completed the medication reconciliation. Patient reported all medications. Brigette Zaman, JavadD
[2022-09-30] MEDS: Enoxaparin Sodium 40 MG/0.4 ML SYRINGE SUBCUT (20:57)
[2022-09-30 21:05] LABS: ~Lactic Acid-LAB USE ONLY 2.5 mmol/L (0.5-2.0)
[2022-09-30 21:09] LABS: Alanine Aminotransferase 38 U/L (0-31); Albumin Level 3.6 g/dL (3.5-5.0); Alkaline Phosphatase 137 U/L (39-117); Anion Gap 22 (12-20); Aspartate Amino Transferase 21 U/L (5-31); Bilirubin Total 0.2 mg/dL (0.0-1.0); Blood Urea Nitrogen 33 mg/dL (9-16); Calcium 9.1 mg/dL (8.4-10.2); Carbon Dioxide 16 mmol/L (22-29); Chloride 106 mmol/L (96-108); Creatinine Clr Calc Pharmacy 35.4; Estimated Glomerular Filt Rate 40; Glucose Random 210 mg/dL (60-115); Magnesium 2.6 mg/dL (1.6-2.6); Potassium 3.5 mmol/L (3.3-5.1); Sodium 140 mmol/L (135-145); Total Protein 7.2 g/dL (6.5-8.0)
--- NOTE | 2022-09-30 21:11 | PM.IMHP ---
History of Present Illness Date of Service: 09/30/22 Chief Complaint: Shortness of breath This is a 67-year-old female with pertinent history of essential hypertension, colorectal cancer with pulmonary metastasis status post colectomy, chemotherapy and radiation who presents to the emergency department with complaints of shortness of breath. Patient states she started having productive cough with runny nose about a week ago. It has been constant and subsequently she developed shortness of breath, worse with exertion. Sputum was initially clear but has changed to yellowish in color. Also had chills. Patient denies fever, nausea, vomiting, chest pain, palpitations, abdominal pain, changes in urinary or bowel habits. Patient is followed at [facility] for her colorectal cancer with pulmonary metastasis. Last chemotherapy was 2 years ago. Patient is scheduled for mapping on 10/03 at [facility] for radiotherapy to lung metastatic sites. In the emergency department, patient was found to be hypoxemic on room air. Currently requiring 3 L supplemental oxygen to maintain normal O2 sats. Imaging with right-sided consolidation. Review of Systems Constitutional: Constitutional: Reports chills and Reports poor appetite Cardiovascular: Cardiovascular: Reports no additional cardiovascular complaints and Reports dyspnea on exertion Respiratory: Respiratory: Reports cough, Reports excessive phlegm production and Reports dyspnea on exertion Gastrointestinal: Gastrointestinal: Reports no additional gastrointestinal complaints Genitourinary: Genitourinary: Reports no additional female genitourinary complaints [facility] Medical History (Updated 09/30/22 @ 21:17 by Susie Lopez MD) Cancer of colon with rectum Hypertension Lung cancer Ureteral stent present Surgical History Hx of appendectomy Hx of tonsillectomy Social History Alcohol intake: never Smoked in Last 30 Days: No Use of substances other than those prescribed or required for medical reasons: No Advance Directives: No Advance Directives Information Provided: No Meds Allergies Allergy/AdvReac Type Severity Reaction Status Date / Time infliximab [Remicade] AdvReac Unknown arthralgia Verified 09/30/22 15:37 salacyclic acid wart remover Allergy Unknown hives, Uncoded 09/30/22 15:37 swollen joints Asacol AdvReac Unknown GI upset Uncoded 09/30/22 15:37 Active Medications: Current Medications Acetaminophen (Acetaminophen 325 Mg Tablet) 650 mg PO Q6H PRN PRN Reason: Pain, Mild (Pain Scale 1-3) Enoxaparin Sodium (Enoxaparin Sodium 40 Mg/0.4 Ml Syringe) 40 mg SUBCUT Q24H [facility] Last Admin: 09/30/22 20:57 Dose: 40 mg Ceftriaxone Sodium 1 gm/ (Sodium Chloride) 50 mls @ 100 mls/hr IV Q24H [facility] Azithromycin 500 mg/ Sodium (Chloride) 250 mls @ 125 mls/hr IV Q24H [facility] Melatonin (Melatonin 3 Mg Tablet) 6 mg PO BEDTIME PRN PRN Reason: Insomnia Ondansetron HCl (Ondansetron Hcl 4 Mg/2 Ml Vial) 4 mg IVPUSH Q8H PRN PRN Reason: Nausea and Vomiting Pharmacy Consult (Consult Rx Perform Med Rec) 1 each MISCELLANE ONCE PRN PRN Reason: Consult order Sodium Chloride (0.9 % Sodium Chloride Flush 3 Ml Syringe) 3 ml IVFLUSH QSHIFT [facility] Home Medications Medication Instructions Recorded Confirmed Last Taken Type acetaminophen 325 mg tablet 650 mg PO Q6H PRN Pain 09/30/22 09/30/22 Unknown History amlodipine 5 mg tablet 1 tab PO DAILY 09/30/22 09/30/22 09/30/22 History Physical Exam Vital Signs and Narrative: Vital Signs: Last Vital Signs Temp 98.6 F 09/30/22 18:00 Pulse 100 09/30/22 20:55 Resp 20 09/30/22 20:55 BP 142/66 H 09/30/22 20:55 Pulse Ox 93 09/30/22 20:55 O2 Del Method 09/30/22 20:55 O2 Flow Rate 3 09/30/22 20:55 BMI result Body Mass Index 23.8 Middle-aged female lying in bed in no distress Neck supple, no JVD Tachycardic with regular rhythm, S1-S2 heard Right > left-sided crackles Abdomen soft nontender, no guarding, no rigidity, colostomy site clean Patient is awake, alert and oriented to self, place, time and person ; no focal motor deficit Psych: Normal mood No pedal edema Results Labs CBC and Chem 7: 09/30/22 17:08 09/30/22 20:38 Labs: Laboratory Results - last 24 hr 09/30/22 09/30/22 09/30/22 17:08 17:08 17:08 MCV 86.3 MCH 27.9 MCHC 32.3 RDW 15.0 Plt Count 414 H D MPV 9.8 Immature Gran % (Auto) 2.2 H Neut % (Auto) 84.7 H Lymph % (Auto) 6.2 L [place] % (Auto) 6.4 Eos % (Auto) 0.2 Baso % (Auto) 0.3 Lymph # (Auto) 0.8 L [place] # (Auto) 0.9 Eos # (Auto) 0.0 Baso # (Auto) 0.0 Abs Immat Gran (auto) 0.30 H Absolute Neuts (auto) 11.3 H Absolute Nucleated RBC 0.020 H Nucleated RBC % (auto) 0.1 Smear Tech's Comments VERIFIED D-Dimer High Sensitivty 1571 VBG pH VBG pCO2 VBG pO2 VBG HCO3 VBG O2 Saturation VBG Base Excess Anion Gap Estim Creat Clear Calc Estimated GFR Random Glucose Lactic Acid Lactic Acid F/U @ 2Hr Calcium Magnesium Total Bilirubin AST ALT Alkaline Phosphatase Troponin I High Sens B-Natriuretic Peptide 42 Total Protein Albumin Influenza Type A (PCR) Influenza Type B (PCR) RSV RNA Qual (PCR) SARS-CoV-2 RNA (RT-PCR) 09/30/22 09/30/22 09/30/22 17:08 17:08 17:08 MCV MCH MCHC RDW Plt Count MPV Immature Gran % (Auto) Neut % (Auto) Lymph % (Auto) [place] % (Auto) Eos % (Auto) Baso % (Auto) Lymph # (Auto) [place] # (Auto) Eos # (Auto) Baso # (Auto) Abs Immat Gran (auto) Absolute Neuts (auto) Absolute Nucleated RBC Nucleated RBC % (auto) Smear Tech's Comments D-Dimer High Sensitivty VBG pH VBG pCO2 VBG pO2 VBG HCO3 VBG O2 Saturation VBG Base Excess Anion Gap Estim Creat Clear Calc Estimated GFR Random Glucose Lactic Acid 2.3 H* Lactic Acid F/U @ 2Hr Calcium Magnesium Total Bilirubin AST ALT Alkaline Phosphatase Troponin I High Sens 11.8 B-Natriuretic Peptide Total Protein Albumin Influenza Type A (PCR) NEGATIVE Influenza Type B (PCR) NEGATIVE RSV RNA Qual (PCR) NEGATIVE SARS-CoV-2 RNA (RT-PCR) NEGATIVE 09/30/22 09/30/22 09/30/22 17:28 20:38 20:38 MCV MCH MCHC RDW Plt Count MPV Immature Gran % (Auto) Neut % (Auto) Lymph % (Auto) [place] % (Auto) Eos % (Auto) Baso % (Auto) Lymph # (Auto) [place] # (Auto) Eos # (Auto) Baso # (Auto) Abs Immat Gran (auto) Absolute Neuts (auto) Absolute Nucleated RBC Nucleated RBC % (auto) Smear Tech's Comments D-Dimer High Sensitivty VBG pH 7.31 L VBG pCO2 38 VBG pO2 40 VBG HCO3 19 L VBG O2 Saturation 53.0 VBG Base Excess -5.7 Anion Gap 22 H Estim Creat Clear Calc 35.4 Estimated GFR 40 Random Glucose 210 H Lactic Acid Lactic Acid F/U @ 2Hr 2.5 H* Calcium 9.1 Magnesium 2.6 Total Bilirubin 0.2 AST 21 ALT 38 H Alkaline Phosphatase 137 H D Troponin I High Sens B-Natriuretic Peptide Total Protein 7.2 Albumin 3.6 Influenza Type A (PCR) Influenza Type B (PCR) RSV RNA Qual (PCR) SARS-CoV-2 RNA (RT-PCR) Imaging Radiologist's Impressions: Impressions Chest X-Ray 09/30/22 16:08 IMPRESSION: Diffusely increased coarsened reticular markings throughout both lungs with question of a couple of small patchy/nodular opacities in the peripheral right lung base and right upper lung. Findings could be due to underlying interstitial lung disease or atypical/viral pneumonia. Pulmonary edemas is felt less likely given absence of effusions. Consider chest CT as indicated clinically. Chest CT 09/30/22 17:37 IMPRESSION: 1. Patchy airspace opacity/consolidation in the posterior segment right upper lobe and adjacent superior segment right lower lobe compatible with pneumonia. 2. Scattered tree-in-bud nodules and bronchial wall thickening is commonly seen in the setting of endobronchial spread of infection. 3. A few discrete solid pulmonary nodules measuring up to 5 mm in size, as above. Cannot exclude pulmonary metastasis. No priors available to assess for change. Larger nodule versus focal area of nodular atelectasis or scarring in the lingula. 4. Moderate centrilobular emphysema. 5. Multiple thyroid nodules, the largest measuring 2.4 cm in size. Suggest correlation with history and thyroid ultrasound as clinically appropriate. 6. Centrilobular emphysema. 7. Atrophic right kidney with ureteral stent in place. 8. Chronic height loss of T7-T9 vertebral bodies and multilevel degenerative disc disease. Assessment and Plan (1) Hypoxia: Status: Acute (2) Pneumonia: Status: Acute (3) Colon cancer: Status: Acute (4) Hypertension: Status: Acute Plan This is a 67-year-old female with pertinent history of essential hypertension, colorectal cancer with pulmonary metastasis status post colectomy, chemotherapy and radiation who presents to the emergency department with complaints of shortness of breath. #. Acute hypoxemic respiratory failure and Sepsis due to: #. Community-acquired pneumonia -will admit patient and initiate empiric IV antibiotics for cap coverage. Resuscitated with IV crystalloids in the ER. Lactic acid and blood cultures obtained. Ordered sputum Gram stain and culture. UA pending -currently requiring 3 L supplemental oxygen, monitor and wean as tolerated. Maintain oxygen saturation greater than 90% #. Acute mild exacerbation of emphysema -due to above. Scheduled and p.r.n. DuoNebs. Prednisone 40 mg p.o. x5 #. Colorectal cancer with pulmonary metastasis -status post colectomy, chemotherapy and radiation. Scheduled for mapping for lung metastatic sites on 10/03 at [facility]. #. Type A lactic acidosis -due to hypoxemia and sepsis #. Essential hypertension -on amlodipine #. Hyperglycemia -no known history of diabetes mellitus Likely due to steroid use in the ER. Obtain A1c and initiate Accu-Cheks with sliding scale insulin. DVT prophylaxis: Lovenox 40 mg daily Cardiac diet Full code Admit as inpatient and will require two night minimum hospital stay for IV antibiotics and supplemental oxygen. Quality Stroke Does the patient have a stroke diagnosis?: No VTE Prior VTE?: No VTE Risk Level:: Medical - moderate - high VTE Device Contraindication: Treatment Not Indicated VTE Drug Contraindication: N/A - Med Ordered
[2022-09-30 21:19] LABS: Appearance Urine Hazy; Color Urine Yellow; Glucose Urine UA Negative (Negative); Leukocyte Esterase Urine Negative (Negative); Nitrite Urine Negative (Negative); Specific Gravity - Urine 1.025 (1.005-1.025); UMIC TRIGGER UACC YES; Urine Blood Large (3+) (Negative); Urine Ketones Negative (Negative); Urine Protein 100 (2+) mg/dL (Neg-Trace)
[2022-09-30 21:41] LABS: RBC Urine >20 /HPF (0-2); WBC Urine 0-5 /HPF (0-5)
[2022-09-30 21:42] LABS: Bacteria Urine 2+ (None Seen); Granular Casts Urine Present; Other Crystals Urine Present
[2022-09-30] MEDS: Albuterol/Iprat 2.5/0.5MG 3 ML AMPUL.NEB INHALE (21:52)
[2022-09-30 21:54] LABS: Glucose, Whole Blood 199 mg/dL (60-115)
--- NOTE | 2022-09-30 22:38 | MHC.CM.PN ---
IMM 09/30. CM met with admitted patient with bed assignment pending. A&Ox4. Lives w . No services/DME. Pt has colostomy. Hx colorectal CA with mets to lungs. Tx at [facility]. Had chemo and radiation. Has appt 10/03 for mapping for radiotherapy to lung mets. Had long standing Chron's. Pfizer x2/no booster. No HCP on file. Education provided. Declines to complete at this time. Pt aware that CM can complete one during her visit is she desires. D/C plan: Home w/o services per patient. will transport home. CM to follow for d/c planning.
[2022-09-30 22:42] LABS: Reflex Lactate? 2 Y
--- NOTE | 2022-09-30 23:11 | PC.NURSE ---
Care of patient assumed at 2300. patient found asleep in stretcher and appears to be comfortably sleeping. RR slightly tachypic, low-to-mid 20s. O2 88% on 3L NC so O2 titrated up to 4L NC with good effect. unlabored/symmetric rise/fall of chest noted. call ibanez is within reach.
[2022-09-30] MEDS: 0.9 % Sodium Chloride Flush 3 ML SYRINGE IVFLUSH (23:12)
[2022-09-30 23:43] LABS: ~Lactic Acid-LAB USE ONLY 1.4 mmol/L (0.5-2.0)
[2022-10-01] VITALS (17 sets, daily range): BP systolic 114–144; BP diastolic 50–80; PULSE 74–100; RESP 14–27; TEMP 36.5–37.1; O2SAT 92–97
[2022-10-01 06:33] LABS: Hematocrit 33.6 % (37.0-47.0); Hemoglobin 10.8 g/dl (12.0-16.0); Mean Corpuscular HGB Conc 32.1 g/dl (31.0-35.0); Mean Corpuscular Hemoglobin 27.6 pg (27.0-33.0); Mean Corpuscular Volume 85.9 fL (80.0-98.0); Mean Platelet Volume 9.5 fL (9.4-12.3); NRBC Pct Auto 0.3 /100WBC (0.0-0.2); Platelet Count 413 X10*3/uL (160-400); Red Blood Count 3.91 X10*6/uL (4.20-5.50); Red Cell Distribution Width 15.3 % (11.0-16.0); White Blood Count 8.8 X10*3/uL (4.8-10.8)
[2022-10-01 06:59] LABS: Anion Gap 18 (12-20); Blood Urea Nitrogen 33 mg/dL (9-16); Calcium 9.3 mg/dL (8.4-10.2); Carbon Dioxide 20 mmol/L (22-29); Chloride 106 mmol/L (96-108); Creatinine Clr Calc Pharmacy 43.2; Estimated Glomerular Filt Rate 50; Glucose Random 184 mg/dL (60-115); Potassium 3.9 mmol/L (3.3-5.1); Sodium 140 mmol/L (135-145)
[2022-10-01 07:10] LABS: Band Neutrophils Percent 5 % (3-5); Lymphocytes Absolute Manual 0.6 X10*3/uL (1.2-4.9); Lymphocytes Percent Manual 7 % (20-40); Monocytes Absolute Manual 0.1 X10*3/uL (0.1-1.2); Monocytes Percent Manual 1 % (2-11); Neutrophils Absolute Manual 8.1 X10*3/uL (2.0-8.3); Neutrophils Percent Manual 87 % (45-73)
[2022-10-01 07:12] LABS: Acanthocytes 1+ (0-2) /OIF; RBC Morphology NOTED
[2022-10-01 07:13] LABS: Platelet Estimate SLIGHTLY INCREASED (NORMAL); Platelet Morphology Comment NORMAL
[2022-10-01 07:24] LABS: Glucose, Whole Blood 158 mg/dL (60-115)
[2022-10-01 07:37] LABS: Estimated Average Glucose 120 mg/dL; Hemoglobin A1c % 5.8 %
[2022-10-01] MEDS: Albuterol/Iprat 2.5/0.5MG 3 ML AMPUL.NEB INHALE ×4 (07:42→20:00)
[2022-10-01] MEDS: Insulin Lispro 100 UNIT/ML 3 ML VIAL SUBCUT ×4 (07:52→22:46)
[2022-10-01] MEDS: 0.9 % Sodium Chloride Flush 3 ML SYRINGE IVFLUSH ×2 (07:53→17:36)
[2022-10-01] MEDS: amLODIPine Besylate 5 MG TABLET PO (08:21)
[2022-10-01] MEDS: predniSONE 20 MG TABLET 40 MG PO (08:21)
[2022-10-01 12:32] LABS: Glucose, Whole Blood 159 mg/dL (60-115)
--- NOTE | 2022-10-01 15:02 | P.CNID_ITS ---
History of Present Illness Data of Consult Service Date: 10/01/22 Requesting physician: Brian Suárez Primary Care Provider: Frankie Padron MD [facility] Reason for consult: shortness of breath She presents with cough and shortness of breath for two days. She has negative COVID. She has lung cancer and is seen at [facility]. She has colon cancer and is on colostomy. Review of Systems Review of Systems: Yes all other systems are reviewed and are negative PMFSH Past Medical History Medical History Cancer of colon with rectum Hypertension Lung cancer Ureteral stent present Family History Family history: reviewed and not pertinent Surgical History Surgical History Hx of appendectomy Hx of tonsillectomy Social History Social History Alcohol intake: never Smoked in Last 30 Days: No Use of substances other than those prescribed or required for medical reasons: No Advance Directives: No Advance Directives Information Provided: No service: No Current occupational status: disabled Meds Allergies Allergy/AdvReac Type Severity Reaction Status Date / Time infliximab [Remicade] AdvReac Unknown arthralgia Verified 09/30/22 15:37 salacyclic acid wart remover Allergy Unknown hives, Uncoded 09/30/22 15:37 swollen joints Asacol AdvReac Unknown GI upset Uncoded 09/30/22 15:37 Active Medications: Current Medications Acetaminophen (Acetaminophen 325 Mg Tablet) 650 mg PO Q6H PRN PRN Reason: Pain, Mild (Pain Scale 1-3) Albuterol/Ipratropium (Albuterol/Iprat 2.5/0.5mg 3 Ml Ampul.Neb) 3 ml INHALE RQ4H WHILE AWAKE NIEVES Last Admin: 10/01/22 11:35 Dose: 3 ml Albuterol/Ipratropium (Albuterol/Iprat 2.5/0.5mg 3 Ml Ampul.Neb) 3 ml INHALE RQ4H PRN PRN Reason: wheezing Amlodipine Besylate (Amlodipine Besylate 5 Mg Tablet) 5 mg PO DAILY NIEVES; Protocol Last Admin: 10/01/22 08:21 Dose: 5 mg Dextrose (Dextrose 50 % 25 Gm/50 Ml Syringe) 25 gm IVPUSH Q15M PRN; Protocol PRN Reason: per Hypoglycemia Standing Ord. Enoxaparin Sodium (Enoxaparin Sodium 40 Mg/0.4 Ml Syringe) 40 mg SUBCUT Q24H [facility] Last Admin: 09/30/22 20:57 Dose: 40 mg Glucose (Glucose Gel 15 Gm Gel..Gram.) 15 gm PO Q15M PRN; Protocol PRN Reason: per Hypoglycemia Standing Ord. Ceftriaxone Sodium 1 gm/ (Sodium Chloride) 50 mls @ 100 mls/hr IV Q24H [facility] Azithromycin 500 mg/ Sodium (Chloride) 250 mls @ 125 mls/hr IV Q24H [facility] Insulin Human Lispro (Insulin Lispro 100 Unit/Ml 3 Ml Vial) 0 unit SUBCUT QIDACHS [facility]; Protocol Last Admin: 10/01/22 13:21 Dose: 2 unit Melatonin (Melatonin 3 Mg Tablet) 6 mg PO BEDTIME PRN PRN Reason: Insomnia Ondansetron HCl (Ondansetron Hcl 4 Mg/2 Ml Vial) 4 mg IVPUSH Q8H PRN PRN Reason: Nausea and Vomiting Pharmacy Consult (Consult Rx Perform Med Rec) 1 each MISCELLANE ONCE PRN PRN Reason: Consult order Prednisone (Prednisone 20 Mg Tablet) 40 mg PO DAILY [facility] Last Admin: 10/01/22 08:21 Dose: 40 mg Sodium Chloride (0.9 % Sodium Chloride Flush 3 Ml Syringe) 3 ml IVFLUSH QSHIFT [facility] Last Admin: 10/01/22 07:53 Dose: 3 ml Home Medications Medication Instructions Recorded Confirmed Last Taken Type acetaminophen 325 mg tablet 650 mg PO Q6H PRN Pain 09/30/22 09/30/22 Unknown History amlodipine 5 mg tablet 1 tab PO DAILY 09/30/22 09/30/22 09/30/22 History Physical Exam Vital Signs: Vital Signs: Last Vital Signs Temp 98.2 F 10/01/22 14:17 Pulse 85 10/01/22 14:17 Resp 14 10/01/22 14:17 BP 127/61 10/01/22 14:17 Pulse Ox 93 10/01/22 14:17 O2 Del Method 10/01/22 14:17 O2 Flow Rate 2 10/01/22 14:17 BMI result Body Mass Index 23.8 Const: General: cooperative HEENT: Head: Yes normal to inspection Face and sinus: Yes normal facial exam Mouth: Normal oral and palatal mucosa present Teeth and gingiva: dentition normal Eyes: General: appearance normal, both eyes and all related structures Pupils: Equal, round and reactive pupils present Resp: Effort & Inspection: normal respiratory effort Cardio: Rate: regular rate Rhythm: regular rhythm GI: Palpation (GI): Soft to palpation and nontender : General: Yes no CVA tenderness Back/Spine/Pelvis: Back: no CVA tenderness Skin: General skin exam: no rashes or lesions noted Neuro: General: moves all extremities Cranial nerves: Yes Equal, round and reactive pupils present Extrem: General: Yes normal to inspection Psych: Appearance: grossly normal Results Labs CBC & Chem 7: 10/01/22 06:08 10/01/22 06:08 Labs: Short CBC 09/30/22 10/01/22 Range/Units 17:08 06:08 WBC 13.4 H 8.8 (4.8-10.8) X10*3/uL Hgb 12.0 10.8 L (12.0-16.0) g/dl Hct 37.1 33.6 L (37.0-47.0) % Plt Count 414 H D 413 H (160-400) X10*3/uL BMP 09/30/22 10/01/22 20:38 06:08 Sodium 140 140 Potassium 3.5 D 3.9 Chloride 106 106 Carbon Dioxide 16 L 20 L BUN 33 H 33 H Creatinine 1.33 1.09 Calcium 9.1 9.3 Liver Function 09/30/22 Range/Units 20:38 Total Bilirubin 0.2 (0.0-1.0) mg/dL AST 21 (5-31) U/L ALT 38 H (0-31) U/L Alkaline Phosphatase 137 H D (39-117) U/L Albumin 3.6 (3.5-5.0) g/dL Urine 09/30/22 Range/Units 20:59 Urine Color Yellow Urine Appearance Hazy Urine pH 6.0 (5.0-9.0) Ur Specific [place] 1.025 (1.005-1.025) Urine Protein 100 (2+) H (Neg-Trace) mg/dL Urine Glucose (UA) Negative (Negative) mg/dL Assessment and Plan (1) Pneumonia: Status: Acute She has possible atypical or typical such as strep pneumonia She has RLL infiltrate and h/o malignancy Possible ongoing lung malignancy as well. (2) Hypoxia: Status: Acute (3) Lung cancer: Status: Acute (4) Colon cancer: Status: Acute Plan Treat Ceftriaxone and azithromycin for 3-5 day hopefully and then po Ceftin and Zpack. If still requiring oxygen Pulmonary evaluation ?postobstructive pneumonia or other causes.
--- NOTE | 2022-10-01 16:12 | PC.NURSE ---
unable to administer Ceftriaxone at this time, due to not having it in the department. Pharmacy aware and will be bringing some down shortly
[2022-10-01] MEDS: Azithromycin 500 MG in 0.9 % Sodium Chloride 250 ML 125 MG IV (17:36)
--- NOTE | 2022-10-01 18:10 | P.PNIM_ITS ---
Subjective Subjective Date of Service: 10/01/22 Interval History: Possible pneumonia Review of Systems still short of breath, talks in short sentences. has cough. Denies any chest pain or nausea or vomiting Physical Exam Vital Signs: Vital Signs: Last Vital Signs Temp 98.2 F 10/01/22 14:17 Pulse 99 10/01/22 17:50 Resp 15 10/01/22 17:50 BP 129/80 10/01/22 17:50 Pulse Ox 94 10/01/22 17:50 O2 Del Method 10/01/22 17:50 O2 Flow Rate 4 10/01/22 17:50 BMI result Body Mass Index 23.8 Appearance: Alert.? Oriented X3.?sob cvs: [id number], [id number] . res: diminshed breath sounds Right > left-sided crackles abd: no rebound or guarding ,nt, bs present. ext pulses present , no cyanosis. Abdomen soft nontender, no guarding, no rigidity, colostomy site clean Patient is awake, alert and oriented to self, place, time and person ; no focal motor deficit Objective Data Active Medications Acetaminophen (Acetaminophen 325 Mg Tablet) 650 mg PO Q6H PRN PRN Reason: Pain, Mild (Pain Scale 1-3) Albuterol/Ipratropium (Albuterol/Iprat 2.5/0.5mg 3 Ml Ampul.Neb) 3 ml INHALE RQ4H WHILE AWAKE [facility] Last Admin: 10/01/22 16:26 Dose: 3 ml Documented By: JULIANA Albuterol/Ipratropium (Albuterol/Iprat 2.5/0.5mg 3 Ml Ampul.Neb) 3 ml INHALE RQ4H PRN PRN Reason: wheezing Amlodipine Besylate (Amlodipine Besylate 5 Mg Tablet) 5 mg PO DAILY [facility]; Protocol Last Admin: 10/01/22 08:21 Dose: 5 mg Documented By: JOLIE Dextrose (Dextrose 50 % 25 Gm/50 Ml Syringe) 25 gm IVPUSH Q15M PRN; Protocol PRN Reason: per Hypoglycemia Standing Ord. Enoxaparin Sodium (Enoxaparin Sodium 40 Mg/0.4 Ml Syringe) 40 mg SUBCUT Q24H [facility] Last Admin: 09/30/22 20:57 Dose: 40 mg Documented By: ANAHY Glucose (Glucose Gel 15 Gm Gel..Gram.) 15 gm PO Q15M PRN; Protocol PRN Reason: per Hypoglycemia Standing Ord. Ceftriaxone Sodium 1 gm/ (Sodium Chloride) 50 mls @ 100 mls/hr IV Q24H [facility] Azithromycin 500 mg/ Sodium (Chloride) 250 mls @ 125 mls/hr IV Q24H [facility] Last Admin: 10/01/22 17:36 Dose: 125 mls/hr Documented By: BIANCA Insulin Human Lispro (Insulin Lispro 100 Unit/Ml 3 Ml Vial) 0 unit SUBCUT QIDACHS [facility]; Protocol Last Admin: 10/01/22 17:48 Dose: 4 unit Documented By: BIANCA Melatonin (Melatonin 3 Mg Tablet) 6 mg PO BEDTIME PRN PRN Reason: Insomnia Ondansetron HCl (Ondansetron Hcl 4 Mg/2 Ml Vial) 4 mg IVPUSH Q8H PRN PRN Reason: Nausea and Vomiting Pharmacy Consult (Consult Rx Perform Med Rec) 1 each MISCELLANE ONCE PRN PRN Reason: Consult order Prednisone (Prednisone 20 Mg Tablet) 40 mg PO DAILY [facility] Last Admin: 10/01/22 08:21 Dose: 40 mg Documented By: JOLIE Sodium Chloride (0.9 % Sodium Chloride Flush 3 Ml Syringe) 3 ml IVFLUSH QSHIFT [facility] Last Admin: 10/01/22 17:36 Dose: 3 ml Documented By: BIANCA Labs CBC & Chem 7: 10/01/22 06:08 10/01/22 06:08 Labs: Laboratory Results - last 24 hr 09/30/22 09/30/22 09/30/22 17:08 17:08 20:38 MCV MCH MCHC RDW Plt Count 414 H D MPV Immature Gran % (Auto) Neut % (Auto) Lymph % (Auto) [place] % (Auto) Eos % (Auto) Baso % (Auto) Lymph # (Auto) [place] # (Auto) Eos # (Auto) Baso # (Auto) Abs Immat Gran (auto) Absolute Neuts (auto) Absolute Nucleated RBC Nucleated RBC % (auto) Neutrophils % (Manual) Band Neutrophils % Lymphocytes % (Manual) Monocytes % (Manual) Abs Neuts (Manual) Lymphocytes # (Manual) Monocytes # (Manual) Platelet Estimate Plt Morphology Comment RBC Morphology Acanthocytes (Spur) Smear Tech's Comments VERIFIED Anion Gap 22 H Estim Creat Clear Calc 35.4 Estimated GFR 40 POC Glucose Random Glucose 210 H Estimat Average Glucose Hemoglobin A1c % Lactic Acid F/U @ 2Hr Lactic Acid F/U @ 4Hr Calcium 9.1 Magnesium 2.6 Total Bilirubin 0.2 AST 21 ALT 38 H Alkaline Phosphatase 137 H D Total Protein 7.2 Albumin 3.6 Urine Color Urine Appearance Urine pH Ur Specific [place] Urine Protein Urine Glucose (UA) Urine Ketones Urine Blood Urine Nitrite Ur Leukocyte Esterase Urine RBC Urine WBC Ur Squamous Epith Cells Other Crystals Urine Bacteria Hyaline Casts Granular Casts Influenza Type A (PCR) NEGATIVE Influenza Type B (PCR) NEGATIVE RSV RNA Qual (PCR) NEGATIVE SARS-CoV-2 RNA (RT-PCR) NEGATIVE 09/30/22 09/30/22 09/30/22 20:38 20:59 21:44 MCV MCH MCHC RDW Plt Count MPV Immature Gran % (Auto) Neut % (Auto) Lymph % (Auto) [place] % (Auto) Eos % (Auto) Baso % (Auto) Lymph # (Auto) [place] # (Auto) Eos # (Auto) Baso # (Auto) Abs Immat Gran (auto) Absolute Neuts (auto) Absolute Nucleated RBC Nucleated RBC % (auto) Neutrophils % (Manual) Band Neutrophils % Lymphocytes % (Manual) Monocytes % (Manual) Abs Neuts (Manual) Lymphocytes # (Manual) Monocytes # (Manual) Platelet Estimate Plt Morphology Comment RBC Morphology Acanthocytes (Spur) Smear Tech's Comments Anion Gap Estim Creat Clear Calc Estimated GFR POC Glucose 199 H Random Glucose Estimat Average Glucose Hemoglobin A1c % Lactic Acid F/U @ 2Hr 2.5 H* Lactic Acid F/U @ 4Hr Calcium Magnesium Total Bilirubin AST ALT Alkaline Phosphatase Total Protein Albumin Urine Color Yellow Urine Appearance Hazy Urine pH 6.0 Ur Specific [place] 1.025 Urine Protein 100 (2+) H Urine Glucose (UA) Negative Urine Ketones Negative Urine Blood Large (3+) H Urine Nitrite Negative Ur Leukocyte Esterase Negative Urine RBC >20 H Urine WBC 0-5 Ur Squamous Epith Cells 3-5 Other Crystals Present Urine Bacteria 2+ Hyaline Casts 6-10 Granular Casts Present Influenza Type A (PCR) Influenza Type B (PCR) RSV RNA Qual (PCR) SARS-CoV-2 RNA (RT-PCR) 11/28/22 11/29/22 11/29/22 23:21 06:08 06:08 MCV 85.9 MCH 27.6 MCHC 32.1 RDW 15.3 Plt Count 413 H MPV 9.5 Immature Gran % (Auto) Cancelled Neut % (Auto) Cancelled Lymph % (Auto) Cancelled [place] % (Auto) Cancelled Eos % (Auto) Cancelled Baso % (Auto) Cancelled Lymph # (Auto) Cancelled [place] # (Auto) Cancelled Eos # (Auto) Cancelled Baso # (Auto) Cancelled Abs Immat Gran (auto) Cancelled Absolute Neuts (auto) Cancelled Absolute Nucleated RBC 0.030 H Nucleated RBC % (auto) 0.3 H Neutrophils % (Manual) 87 H Band Neutrophils % 5 Lymphocytes % (Manual) 7 L Monocytes % (Manual) 1 L Abs Neuts (Manual) 8.1 Lymphocytes # (Manual) 0.6 L Monocytes # (Manual) 0.1 Platelet Estimate SLIGHTLY INCREASED Plt Morphology Comment NORMAL RBC Morphology NOTED Acanthocytes (Spur) 1+ (0-2) Smear Tech's Comments Anion Gap 18 Estim Creat Clear Calc 43.2 Estimated GFR 50 POC Glucose Random Glucose 184 H Estimat Average Glucose Hemoglobin A1c % Lactic Acid F/U @ 2Hr Lactic Acid F/U @ 4Hr 1.4 Calcium 9.3 Magnesium Total Bilirubin AST ALT Alkaline Phosphatase Total Protein Albumin Urine Color Urine Appearance Urine pH Ur Specific [place] Urine Protein Urine Glucose (UA) Urine Ketones Urine Blood Urine Nitrite Ur Leukocyte Esterase Urine RBC Urine WBC Ur Squamous Epith Cells Other Crystals Urine Bacteria Hyaline Casts Granular Casts Influenza Type A (PCR) Influenza Type B (PCR) RSV RNA Qual (PCR) SARS-CoV-2 RNA (RT-PCR) 10/01/22 10/01/22 10/01/22 06:08 07:20 12:24 MCV MCH MCHC RDW Plt Count MPV Immature Gran % (Auto) Neut % (Auto) Lymph % (Auto) [place] % (Auto) Eos % (Auto) Baso % (Auto) Lymph # (Auto) [place] # (Auto) Eos # (Auto) Baso # (Auto) Abs Immat Gran (auto) Absolute Neuts (auto) Absolute Nucleated RBC Nucleated RBC % (auto) Neutrophils % (Manual) Band Neutrophils % Lymphocytes % (Manual) Monocytes % (Manual) Abs Neuts (Manual) Lymphocytes # (Manual) Monocytes # (Manual) Platelet Estimate Plt Morphology Comment RBC Morphology Acanthocytes (Spur) Smear Tech's Comments Anion Gap Estim Creat Clear Calc Estimated GFR POC Glucose 158 H 159 H Random Glucose Estimat Average Glucose 120 Hemoglobin A1c % 5.8 Lactic Acid F/U @ 2Hr Lactic Acid F/U @ 4Hr Calcium Magnesium Total Bilirubin AST ALT Alkaline Phosphatase Total Protein Albumin Urine Color Urine Appearance Urine pH Ur Specific [place] Urine Protein Urine Glucose (UA) Urine Ketones Urine Blood Urine Nitrite Ur Leukocyte Esterase Urine RBC Urine WBC Ur Squamous Epith Cells Other Crystals Urine Bacteria Hyaline Casts Granular Casts Influenza Type A (PCR) Influenza Type B (PCR) RSV RNA Qual (PCR) SARS-CoV-2 RNA (RT-PCR) Assessment and Plan (1) Hypoxia: Status: Acute (2) Pneumonia: Status: Acute (3) BREANNE (acute kidney injury): Status: Acute Plan 67-year-old female with pertinent history of essential hypertension, colorectal cancer with pulmonary metastasis status post colectomy, chemotherapy and radiation who presents to the emergency department with complaints of shortness of breath. #.? Acute hypoxemic respiratory failure and Sepsis due to: #.? Community-acquired pneumonia -will admit patient and initiate empiric IV antibiotics . sputum and blood blood culture pending. Leukocytosis resolved, no fever. Lactic acid normal. BREANNE improved -currently requiring 3 L supplemental oxygen, monitor and wean as tolerated.? Maintain oxygen saturation greater than 90% #.? Acute mild exacerbation of emphysema -due to above.? Scheduled and p.r.n. DuoNebs.? Prednisone 40 mg p.o. x5 #.? Colorectal cancer with pulmonary metastasis -status post colectomy, chemotherapy and radiation.? Scheduled for mapping for lung metastatic sites on 10/03 at [facility]. #.? Type A lactic acidosis -due to hypoxemia and sepsis #.? Essential hypertension -on amlodipine #.? Hyperglycemia -no known history of diabetes mellitus? Hbaa1c levels 5.8 DVT prophylaxis: Lovenox 40 mg daily Cardiac diet Full code inpatient hospitalization stay: pneumonia for IV antibiotics and supplemental oxygen.? Quality Stroke Does the patient have a stroke diagnosis?: No VTE Prior VTE?: No VTE Risk Level:: Medical - moderate - high VTE Device Contraindication: Treatment Not Indicated VTE Drug Contraindication: N/A - Med Ordered
[2022-10-01 18:21] LABS: Glucose, Whole Blood 249 mg/dL (60-115)
[2022-10-01] MEDS: cefTRIAXone sodium 1 GM in 0.9 % Sodium Chloride 50 ML IV (18:42)
--- NOTE | 2022-10-01 20:16 | PC.NURSE ---
attempted report at 2016, RN on S3 unable to take call at this time
--- NOTE | 2022-10-01 20:22 | PC.NURSE ---
Patient is resting quietly while watching tv. No respiratory distress.
[2022-10-01] MEDS: Enoxaparin Sodium 40 MG/0.4 ML SYRINGE SUBCUT (22:45)
[2022-10-01 22:47] LABS: Glucose, Whole Blood 258 mg/dL (60-115)
--- NOTE | 2022-10-01 23:01 | PC.NURSE ---
patient resting in bed,alert and oriented
[2022-10-02] VITALS (9 sets, daily range): BP systolic 130–152; BP diastolic 67–73; PULSE 80–108; RESP 18–24; TEMP 36.4–37; O2SAT 90–95; BMI 26.4
[2022-10-02] MEDS: 0.9 % Sodium Chloride Flush 3 ML SYRINGE IVFLUSH ×4 (06:34→20:36)
[2022-10-02] MEDS: Albuterol/Iprat 2.5/0.5MG 3 ML AMPUL.NEB INHALE ×4 (07:43→19:40)
[2022-10-02 07:46] LABS: Glucose, Whole Blood 118 mg/dL (60-115)
[2022-10-02] MEDS: amLODIPine Besylate 5 MG TABLET PO (09:20)
[2022-10-02] MEDS: predniSONE 20 MG TABLET 40 MG PO (09:20)
[2022-10-02 11:47] LABS: Glucose, Whole Blood 130 mg/dL (60-115)
--- NOTE | 2022-10-02 14:33 | HO.PM.IMPN ---
Subjective Subjective Date of Service: 10/02/22 Interval History: Possible pneumonia Review of Systems still short of breath, talks in short sentences.? has cough. ? Denies any chest pain or nausea or vomiting Physical Exam Vital Signs: Vital Signs: Last Vital Signs Temp 98.6 F 10/02/22 12:00 Pulse 101 H 10/02/22 12:00 Resp 20 10/02/22 12:00 BP 141/67 H 10/02/22 12:00 Pulse Ox 95 10/02/22 12:00 O2 Del Method 10/02/22 12:00 O2 Flow Rate 2.0 10/02/22 12:00 BMI result Body Mass Index 26.4 Appearance: Alert.? Oriented X3.?sob cvs: [id number], [id number] . res: diminshed breath sounds Right > left-sided crackles abd: no rebound or guarding ,nt, bs present. ext pulses present , no cyanosis. Abdomen soft nontender, no guarding, no rigidity, colostomy site clean Patient is awake, alert and oriented to self, place, time and person ; no focal motor deficit ? Objective Data Active Medications Acetaminophen (Acetaminophen 325 Mg Tablet) 650 mg PO Q6H PRN PRN Reason: Pain, Mild (Pain Scale 1-3) Albuterol/Ipratropium (Albuterol/Iprat 2.5/0.5mg 3 Ml Ampul.Neb) 3 ml INHALE RQ4H WHILE AWAKE [facility] Last Admin: 10/02/22 11:14 Dose: 3 ml Documented By: STANLEY Albuterol/Ipratropium (Albuterol/Iprat 2.5/0.5mg 3 Ml Ampul.Neb) 3 ml INHALE RQ4H PRN PRN Reason: wheezing Amlodipine Besylate (Amlodipine Besylate 5 Mg Tablet) 5 mg PO DAILY [facility]; Protocol Last Admin: 10/02/22 09:20 Dose: 5 mg Documented By: VIRY Dextrose (Dextrose 50 % 25 Gm/50 Ml Syringe) 25 gm IVPUSH Q15M PRN; Protocol PRN Reason: per Hypoglycemia Standing Ord. Enoxaparin Sodium (Enoxaparin Sodium 40 Mg/0.4 Ml Syringe) 40 mg SUBCUT Q24H [facility] Last Admin: 10/01/22 22:45 Dose: 40 mg Documented By: AMAYA Glucose (Glucose Gel 15 Gm Gel..Gram.) 15 gm PO Q15M PRN; Protocol PRN Reason: per Hypoglycemia Standing Ord. Ceftriaxone Sodium 1 gm/ (Sodium Chloride) 50 mls @ 100 mls/hr IV Q24H [facility] Last Infusion: 10/01/22 19:38 Dose: 0 mls/hr Documented By: BIANCA Azithromycin 500 mg/ Sodium (Chloride) 250 mls @ 125 mls/hr IV Q24H [facility] Last Infusion: 10/01/22 22:34 Dose: 0 mls/hr Documented By: AMAYA Insulin Human Lispro (Insulin Lispro 100 Unit/Ml 3 Ml Vial) 0 unit SUBCUT QIDACHS [facility]; Protocol Last Admin: 10/02/22 11:53 Dose: Not Given Documented By: VIRY Non-Admin Reason: No Insulin Coverage Melatonin (Melatonin 3 Mg Tablet) 6 mg PO BEDTIME PRN PRN Reason: Insomnia Ondansetron HCl (Ondansetron Hcl 4 Mg/2 Ml Vial) 4 mg IVPUSH Q8H PRN PRN Reason: Nausea and Vomiting Pharmacy Consult (Consult Rx Perform Med Rec) 1 each MISCELLANE ONCE PRN PRN Reason: Consult order Prednisone (Prednisone 20 Mg Tablet) 40 mg PO DAILY [facility] Last Admin: 10/02/22 09:20 Dose: 40 mg Documented By: VIRY Sodium Chloride (0.9 % Sodium Chloride Flush 3 Ml Syringe) 3 ml IVFLUSH QSHIFT [facility] Last Admin: 10/02/22 09:20 Dose: 3 ml Documented By: VIRY Labs CBC & Chem 7: 10/01/22 06:08 10/01/22 06:08 Labs: Laboratory Results - last 24 hr 10/01/22 10/01/22 10/02/22 17:40 22:42 07:42 POC Glucose 249 H 258 H 118 H 10/02/22 11:44 POC Glucose 130 H Microbiology Microbiology Results: Microbiology 10/01/22 17:39 Gram Stain - Final Sputum - Expectorated Sputum Culture - Preliminary Culture in progress. 09/30/22 17:08 Blood Culture - Preliminary Blood - Venous No growth after 24 hours. 09/30/22 17:08 Blood Culture - Preliminary Blood - Venous No growth after 24 hours. Assessment and Plan (1) Hypoxia: Status: Acute (2) Pneumonia: Status: Acute (3) BREANNE (acute kidney injury): Status: Acute Plan 67-year-old female with pertinent history of essential hypertension, colorectal cancer with pulmonary metastasis status post colectomy, chemotherapy and radiation who presents to the emergency department with complaints of shortness of breath. #.? Acute hypoxemic respiratory failure and Sepsis due to: #.? Community-acquired pneumonia -will admit patient and initiate empiric IV antibiotics . sputum and blood blood culture pending. Leukocytosis resolved, no fever. Lactic acid normal. BREANNE improved -currently requiring 3 L supplemental oxygen, monitor and wean as tolerated.? Maintain oxygen saturation greater than 90% #.? Acute mild exacerbation of emphysema -due to above.? Scheduled and p.r.n. DuoNebs.? Prednisone 40 mg p.o. x5 #.? Colorectal cancer with pulmonary metastasis -status post colectomy, chemotherapy and radiation.? Scheduled for mapping for lung metastatic sites on 10/03 at [facility]. #.? acute Type A lactic acidosis -due to hypoxemia and sepsis resolved. #.? Essential hypertension -on amlodipine #.? Hyperglycemia -no known history of diabetes mellitus? Hbaa1c levels 5.8 DVT prophylaxis: Lovenox 40 mg daily Cardiac diet Full code inpatient hospitalization stay: pneumonia for IV antibiotics and supplemental oxygen.? Quality Stroke Does the patient have a stroke diagnosis?: No VTE Prior VTE?: No VTE Risk Level:: Medical - moderate - high VTE Device Contraindication: Treatment Not Indicated VTE Drug Contraindication: N/A - Med Ordered
[2022-10-02] MEDS: cefTRIAXone sodium 1 GM in 0.9 % Sodium Chloride 50 ML IV (15:17)
[2022-10-02 16:18] LABS: Glucose, Whole Blood 215 mg/dL (60-115)
[2022-10-02] MEDS: Insulin Lispro 100 UNIT/ML 3 ML VIAL SUBCUT ×2 (16:42→20:35)
[2022-10-02] MEDS: Azithromycin 500 MG in 0.9 % Sodium Chloride 250 ML 125 MG IV (16:43)
[2022-10-02] MEDS: Piperacillin Sodium/Tazobactam 3.375 GM in 0.9 % Sodium Chloride 50 ML IV (19:23)
[2022-10-02 20:35] LABS: Glucose, Whole Blood 194 mg/dL (60-115)
[2022-10-02] MEDS: Enoxaparin Sodium 40 MG/0.4 ML SYRINGE SUBCUT (20:35)
[2022-10-03] VITALS (11 sets, daily range): BP systolic 137–172; BP diastolic 59–83; PULSE 77–92; RESP 17–20; TEMP 36.3–36.9; O2SAT 87–99
[2022-10-03] MEDS: Piperacillin Sodium/Tazobactam 3.375 GM in 0.9 % Sodium Chloride 50 ML IV ×5 (01:50→23:59)
[2022-10-03] MEDS: 0.9 % Sodium Chloride Flush 3 ML SYRINGE IVFLUSH ×3 (07:22→20:01)
[2022-10-03 07:56] LABS: Glucose, Whole Blood 105 mg/dL (60-115)
[2022-10-03] MEDS: Albuterol/Iprat 2.5/0.5MG 3 ML AMPUL.NEB INHALE ×4 (08:12→19:14)
[2022-10-03] MEDS: amLODIPine Besylate 5 MG TABLET PO (09:07)
[2022-10-03] MEDS: predniSONE 20 MG TABLET 40 MG PO (09:07)
[2022-10-03 11:43] LABS: Glucose, Whole Blood 143 mg/dL (60-115)
--- NOTE | 2022-10-03 12:24 | HO.PM.IMPN ---
Subjective Subjective Date of Service: 10/03/22 Interval History: Possible pneumonia,gram positive rods bacteremia (1/2) Review of Systems sob seems to be improving.? has cough. ? Denies any chest pain or nausea or vomiting Physical Exam Vital Signs: Vital Signs: Last Vital Signs Temp 98.3 F 10/03/22 07:49 Pulse 81 10/03/22 11:39 Resp 20 10/03/22 11:39 BP 172/83 H 10/03/22 07:49 Pulse Ox 91 L 10/03/22 08:43 O2 Del Method 10/03/22 07:49 O2 Flow Rate 2.0 10/03/22 07:49 BMI result Body Mass Index 26.4 ?Appearance: Alert.? Oriented X3.?sob improvin cvs: rrr, [id number] . res: diminshed breath sounds Right > left-sided crackles abd: no rebound or guarding ,nt, bs present. ext pulses present , no cyanosis. Abdomen soft nontender, no guarding, no rigidity, colostomy site clean Patient is awake, alert and oriented to self, place, time and person ; no focal motor deficit ? Objective Data Active Medications Acetaminophen (Acetaminophen 325 Mg Tablet) 650 mg PO Q6H PRN PRN Reason: Pain, Mild (Pain Scale 1-3) Albuterol/Ipratropium (Albuterol/Iprat 2.5/0.5mg 3 Ml Ampul.Neb) 3 ml INHALE RQ4H WHILE AWAKE [facility] Last Admin: 10/03/22 11:37 Dose: 3 ml Documented By: STANLEY Albuterol/Ipratropium (Albuterol/Iprat 2.5/0.5mg 3 Ml Ampul.Neb) 3 ml INHALE RQ4H PRN PRN Reason: wheezing Amlodipine Besylate (Amlodipine Besylate 5 Mg Tablet) 5 mg PO DAILY [facility]; Protocol Last Admin: 10/03/22 09:07 Dose: 5 mg Documented By: DABA Dextrose (Dextrose 50 % 25 Gm/50 Ml Syringe) 25 gm IVPUSH Q15M PRN; Protocol PRN Reason: per Hypoglycemia Standing Ord. Enoxaparin Sodium (Enoxaparin Sodium 40 Mg/0.4 Ml Syringe) 40 mg SUBCUT Q24H [facility] Last Admin: 10/02/22 20:35 Dose: 40 mg Documented By: NAIF Glucose (Glucose Gel 15 Gm Gel..Gram.) 15 gm PO Q15M PRN; Protocol PRN Reason: per Hypoglycemia Standing Ord. Ceftriaxone Sodium 1 gm/ (Sodium Chloride) 50 mls @ 100 mls/hr IV Q24H [facility] Last Infusion: 10/02/22 15:52 Dose: 0 mls/hr Documented By: VIRY Azithromycin 500 mg/ Sodium (Chloride) 250 mls @ 125 mls/hr IV Q24H [facility] Last Infusion: 10/02/22 19:28 Dose: 0 mls/hr Documented By: NAIF Piperacillin Sod/Tazobactam (Sod 3.375 gm/ Sodium Chloride) 50 mls @ 100 mls/hr IV Q6H [facility] Last Infusion: 10/03/22 10:10 Dose: 0 mls/hr Documented By: NIKKI Insulin Human Lispro (Insulin Lispro 100 Unit/Ml 3 Ml Vial) 0 unit SUBCUT QIDACHS [facility]; Protocol Last Admin: 10/03/22 12:15 Dose: Not Given Documented By: NIKKI Non-Admin Reason: No Insulin Coverage Melatonin (Melatonin 3 Mg Tablet) 6 mg PO BEDTIME PRN PRN Reason: Insomnia Ondansetron HCl (Ondansetron Hcl 4 Mg/2 Ml Vial) 4 mg IVPUSH Q8H PRN PRN Reason: Nausea and Vomiting Pharmacy Consult (Consult Rx Perform Med Rec) 1 each MISCELLANE ONCE PRN PRN Reason: Consult order Prednisone (Prednisone 20 Mg Tablet) 40 mg PO DAILY [facility] Last Admin: 10/03/22 09:07 Dose: 40 mg Documented By: NIKKI Sodium Chloride (0.9 % Sodium Chloride Flush 3 Ml Syringe) 3 ml IVFLUSH QSHIFT [facility] Last Admin: 10/03/22 07:22 Dose: 3 ml Documented By: NIKKI Labs CBC & Chem 7: 10/01/22 06:08 10/01/22 06:08 Labs: Laboratory Results - last 24 hr 10/02/22 10/02/22 10/03/22 16:06 20:29 07:48 POC Glucose 215 H 194 H 105 10/03/22 11:34 POC Glucose 143 H Microbiology Microbiology Results: Microbiology 10/01/22 17:39 Gram Stain - Final Sputum - Expectorated Sputum Culture - Preliminary Culture in progress. 09/30/22 17:08 Blood Culture - Preliminary Blood - Venous Prelim: GPR Gram Stain only 09/30/22 17:08 Blood Culture - Preliminary Blood - Venous No growth after 48 hours. Assessment and Plan (1) Hypoxia: Status: Acute (2) Pneumonia: Status: Acute (3) BRENANE (acute kidney injury): Status: Acute Plan 67-year-old female with pertinent history of essential hypertension, colorectal cancer with pulmonary metastasis status post colectomy, chemotherapy and radiation who presents to the emergency department with complaints of shortness of breath. #.? Acute hypoxemic respiratory failure and Sepsis due to: #.? Community-acquired pneumonia -will admit patient and initiate empiric IV antibiotics . sputum and blood blood culture pending. Leukocytosis resolved, no fever. Lactic acid normal. BREANNE improved -currently requiring 3 L supplemental oxygen, monitor and wean as tolerated.? Maintain oxygen saturation greater than 90% #.? Acute mild exacerbation of emphysema -due to above.? Scheduled and p.r.n. DuoNebs.? Prednisone 40 mg p.o. x5 #.? Colorectal cancer with pulmonary metastasis -status post colectomy, chemotherapy and radiation.? Scheduled for mapping for lung metastatic sites on 10/03 at [facility]. #.? acute Type A lactic acidosis -due to hypoxemia and sepsis resolved. #.? Essential hypertension -on amlodipine #.? Hyperglycemia -no known history of diabetes mellitus? Hbaa1c levels 5.8 DVT prophylaxis: Lovenox 40 mg daily Cardiac diet Full code inpatient hospitalization stay: pneumonia for IV antibiotics and supplemental oxygen.? Quality Stroke Does the patient have a stroke diagnosis?: No VTE Prior VTE?: No VTE Risk Level:: Medical - moderate - high VTE Device Contraindication: Treatment Not Indicated VTE Drug Contraindication: N/A - Med Ordered
[2022-10-03] MEDS: Azithromycin 500 MG in 0.9 % Sodium Chloride 250 ML 125 MG IV (15:58)
[2022-10-03 16:16] LABS: Glucose, Whole Blood 196 mg/dL (60-115)
[2022-10-03] MEDS: Insulin Lispro 100 UNIT/ML 3 ML VIAL SUBCUT ×2 (16:42→20:01)
[2022-10-03 19:56] LABS: Glucose, Whole Blood 179 mg/dL (60-115)
[2022-10-03] MEDS: Enoxaparin Sodium 40 MG/0.4 ML SYRINGE SUBCUT (20:01)
[2022-10-04] VITALS (7 sets, daily range): BP systolic 141–149; BP diastolic 65–75; PULSE 76–97; RESP 15–18; TEMP 36.6–36.7; O2SAT 89–100
[2022-10-04] MEDS: Piperacillin Sodium/Tazobactam 3.375 GM in 0.9 % Sodium Chloride 50 ML IV (06:08)
[2022-10-04 07:24] LABS: Glucose, Whole Blood 90 mg/dL (60-115)
[2022-10-04] MEDS: Albuterol/Iprat 2.5/0.5MG 3 ML AMPUL.NEB INHALE ×3 (07:48→15:24)
[2022-10-04] MEDS: predniSONE 20 MG TABLET 40 MG PO (08:48)
[2022-10-04] MEDS: amLODIPine Besylate 2.5 MG TABLET 7.5 MG PO (08:49)
[2022-10-04] MEDS: 0.9 % Sodium Chloride Flush 3 ML SYRINGE IVFLUSH (08:52)
[2022-10-04 11:23] LABS: Glucose, Whole Blood 148 mg/dL (60-115)
--- NOTE | 2022-10-04 13:14 | MHC.CM.PN ---
Addendum entered by Analy Contreras RN 10/04/22 14:40: CM MET W/PT WHO REPORTS SHE PPASSED HOME O2 EVAL AND DOES NOT NEED HOME O2, PT ALSO REPORTS SHE DOES NOT FEEL SHE WILL NEED VNA SERVICES, REFERRAL UPDATED. Original Note: ANTIC PT WILL D/C [facility] TODAY W/NEW HOME O2, HOME O2 EVAL PENDING. NEW VNA FOR SN AND PT'S WILL TRANSPORT
[2022-10-04] MEDS: Amoxicillin/Potassium Clav 875 MG TABLET PO (14:23)
[2022-10-04] MEDS: Azithromycin 500 MG TABLET PO (14:23)
--- NOTE | 2022-10-04 14:48 | PM.DS ---
DS: Providers Provider Date of Service: 10/04/22 Date of admission: 09/30/22 20:24 Primary care physician: Frankie Padron MD Consults: 10/01/22 10:31 Consult to Infectious Diseases Routine Consulting Provider: Comfort Patiño Reason for consultation: pneumonia /hx of colorectal ca/lung metastais Has provider been notified: No DS: Diagnosis Discharge Diagnosis (1) Hypoxia: Status: Acute (2) Pneumonia: Status: Acute (3) BREANNE (acute kidney injury): Status: Acute (4) Hyperglycemia: Status: Acute DS: Summary Hospital Course Hospital Course: HPI:67-year-old female with pertinent history of essential hypertension, colorectal cancer with pulmonary metastasis status post colectomy, chemotherapy and radiation who presents to the emergency department with complaints of shortness of breath.? Patient states she started having productive cough with runny nose about a week ago.? It has been constant and subsequently she developed shortness of breath, worse with exertion.? Sputum was initially clear but has changed to yellowish in color.? Also had chills.? Patient denies fever, nausea, vomiting, chest pain, palpitations, abdominal pain, changes in urinary or bowel habits.? Patient is followed at [facility] for her colorectal cancer with pulmonary metastasis.? Last chemotherapy was 2 years ago.? Patient is scheduled for mapping on 10/03 at [facility] for radiotherapy to lung metastatic sites. In the emergency department, patient was found to be hypoxemic on room air.? Currently requiring 3 L supplemental oxygen to maintain normal O2 sats.? Imaging with right-sided consolidation. hospital course: Patient admitted for acute hypoxemic respiratory failure secondary to pneumonia and mild COPD exacerbation-started on nebs, steroids, antibiotics and oxygen support: Seems to be improving significantly switched to p.o. antibiotics as well as steroids, home oxygen evaluation done and patient passed it -does not need home oxygen . Mild hyperglycemia possible related to steroid use, we adjusted the dose of steroids to 20 mg for 3 days. Hemoglobin A1c is 5.8, advise for diabetic diet if possible. Above management discussed with patient in detail length patient is going to go home with p.o. steroids and antibiotic please complete the course . Patient was also advised to get chest imaging study in 3-4 weeks to see resolution of pneumonia. her Ct chest imaging :incidental finding:Multiple thyroid nodules, the largest measuring 2.4 cm in size. Suggest correlation with history and thyroid ultrasound as clinically appropriate. Further management outpatient with PCP. Assessment and plan coordination time spent, 50 minute. Discussed with the patient in detail she understand and in agreement with our plan. Time Spent with Patient Time attestation: Total time spent providing and/or coordinating discharge services: Discharge coordination time: Greater than 30 minutes Quality: Safe Use of Opioids Does Pt have an Active Cancer Diagnosis on the Problem List?: Yes Opioid Measure Date for [facility] Report: 09/04/22 Opioid Measure Time for [facility] Report: 14:50 Quality: Stroke Does the patient have a stroke diagnosis?: No Physical Exam Vital Signs: Vital Signs: Last Vital Signs Temp 97.9 F 10/04/22 08:00 Pulse 83 10/04/22 12:01 Resp 15 10/04/22 12:01 BP 142/65 H 10/04/22 08:00 Pulse Ox 96 10/04/22 08:00 O2 Del Method 10/04/22 08:00 O2 Flow Rate 1.0 10/04/22 08:00 BMI result Body Mass Index 26.4 Appearance: Alert.? Oriented X3.?sob cvs: rrr, [id number] . res:air entery is fair ,no rales or wheezin abd: no rebound or guarding ,nt, bs present. ext pulses present , no cyanosis. Abdomen soft nontender, no guarding, no rigidity, colostomy site clean Patient is awake, alert and oriented to self, place, time and person ; no focal motor deficit DS: Data Data Completed and Pending Labs on day of discharge: Laboratory Results - last 24 hr 10/03/22 10/03/22 10/04/22 15:50 19:53 07:20 POC Glucose 196 H 179 H 90 10/04/22 11:15 POC Glucose 148 H Preliminary micro results at discharge 09/30/22 17:08 Blood Culture - Preliminary Blood - Venous No growth after 48 hours. Imaging Chest x-ray: Radiologist's impression: ITS Impressions Chest X-Ray 09/30/22 16:08 IMPRESSION: Diffusely increased coarsened reticular markings throughout both lungs with question of a couple of small patchy/nodular opacities in the peripheral right lung base and right upper lung. Findings could be due to underlying interstitial lung disease or atypical/viral pneumonia. Pulmonary edemas is felt less likely given absence of effusions. Consider chest CT as indicated clinically. Chest CT 09/30/22 17:37 IMPRESSION: 1. Patchy airspace opacity/consolidation in the posterior segment right upper lobe and adjacent superior segment right lower lobe compatible with pneumonia. 2. Scattered tree-in-bud nodules and bronchial wall thickening is commonly seen in the setting of endobronchial spread of infection. 3. A few discrete solid pulmonary nodules measuring up to 5 mm in size, as above. Cannot exclude pulmonary metastasis. No priors available to assess for change. Larger nodule versus focal area of nodular atelectasis or scarring in the lingula. 4. Moderate centrilobular emphysema. 5. Multiple thyroid nodules, the largest measuring 2.4 cm in size. Suggest correlation with history and thyroid ultrasound as clinically appropriate. 6. Centrilobular emphysema. 7. Atrophic right kidney with ureteral stent in place. 8. Chronic height loss of T7-T9 vertebral bodies and multilevel degenerative disc disease. Additional Comments Additional comments: ?CT/CT chest wo IV con IMPRESSION: 1.? Patchy airspace opacity/consolidation in the posterior segment right upper lobe and adjacent superior segment right lower lobe compatible with pneumonia. 2.? Scattered tree-in-bud nodules and bronchial wall thickening is commonly seen in the setting of endobronchial spread of infection. 3.? A few discrete solid pulmonary nodules measuring up to 5 mm in size, as above. Cannot exclude pulmonary metastasis. No priors available to assess for change. Larger nodule versus focal area of nodular atelectasis or scarring in the lingula. 4.? Moderate centrilobular emphysema. 5.? Multiple thyroid nodules, the largest measuring 2.4 cm in size. Suggest correlation with history and thyroid ultrasound as clinically appropriate. 6.? Centrilobular emphysema. 7.? Atrophic right kidney with ureteral stent in place. 8.? Chronic height loss of T7-T9 vertebral bodies and multilevel degenerative disc disease. Discharge Plan Discharge Anticipated Discharge Date/Time: 10/04/22 14:01 Patient Disposition: Home Health Service Discharge Diagnosis: Acute hypoxemic respiratory failure secondary to pneumonia. Referrals: Frankie Padron MD [Primary Care Provider] - 1 Week Discharge Medications: New amoxicillin-pot clavulanate 875-125 mg Tablet 875 mg PO Q12H Qty: 12 0RF azithromycin 500 mg tablet 500 mg PO DAILY 5 Days Qty: 5 0RF prednisone 20 mg tablet 20 mg PO DAILY Qty: 3 0RF Continued acetaminophen 325 mg Tablet 650 mg PO Q6H PRN (Reason: Pain) amlodipine 5 mg tablet 1 tab PO DAILY Discharge Orders: Discharge Order (Routine); Ordered 10/04/22 Ordered By: Brian Suárez Diet: Advance to usual diet Activity on Discharge: As tolerated Stand Alone Forms: Patient Portal Discharge page Care Plan Goals: Patient admitted for acute hypoxemic respiratory failure secondary to pneumonia and mild COPD exacerbation-started on nebs, steroids, antibiotics and oxygen support: Seems to be improving significantly switched to p.o. antibiotics as well as steroids, home oxygen evaluation done and patient passed it -does not need home oxygen . Mild hyperglycemia possible related to steroid use, we adjusted the dose of steroids to 20 mg for 3 days. Hemoglobin A1c is 5.8, advise for diabetic diet if possible. Above management discussed with patient in detail length patient is going to go home with p.o. steroids and antibiotic please complete the course . Patient was also advised to get chest imaging study in 3-4 weeks to see resolution of pneumonia. Further management outpatient with PCP. Health Concerns: As above. Plan of Treatment: As above. Assessment: As above.
[2022-10-04 15:52] LABS: Glucose, Whole Blood 243 mg/dL (60-115)
== END 2022-10-04 17:34 | disposition home health service (06) | DRG 871 ==
LOC: HO.ED 20:24 → HO.EDOVER 20:37 → HO.S3 10-01 19:41
PROVIDERS: Nurse Practitioner Family; Physician Assistant; Admitting Provider Student in an Organized Health Care Education/Training Program; Emergency Provider Internal Medicine; PCP Internal Medicine; Visit Provider Internal Medicine
DX: A41.9 Sepsis, unspecified organism (principal); J18.9 Pneumonia, unspecified organism; J96.01 Acute respiratory failure with hypoxia; C19 Malignant neoplasm of rectosigmoid junction; C78.00 Secondary malignant neoplasm of unspecified lung; N17.9 Acute kidney failure, unspecified; E87.21 Acute metabolic acidosis; I10 Essential (primary) hypertension; J43.9 Emphysema, unspecified; R73.9 Hyperglycemia, unspecified; Z20.822 Contact with and (suspected) exposure to COVID-19; Z93.3 Colostomy status; Z92.21 Personal history of antineoplastic chemotherapy; Z92.3 Personal history of irradiation; Z87.891 Personal history of nicotine dependence; Z88.8 Allergy status to other drugs, medicaments and biological substances; Z79.899 Other long term (current) drug therapy
CPT/HCPCS: 0241U; 36415; 71045; 71250; 80048; 80053; 81001; 82803; 82947; 83036; 83605; 83735; 83880; 84484; 85007; 85025; 85027; 85379; 87040; 87070; 87205; 93005; 94640; 97162; 99285; J0456; J0696; J1650; J2543; J2930; J3475

== ENCOUNTER 2022-11-06 15:19 | Outpatient (REF) | payer MEDICARE, SELFPAY ==
--- NOTE | ~2022-11-06 | XR_ITS ---
EXAMINATION: XR CHEST CLINICAL INFORMATION: Status post pneumonia COMPARISON: Chest radiograph and CT chest 09/30/2022 TECHNIQUE: 2 views of the chest were obtained. FINDINGS: The heart and pulmonary vessels appear normal. Previously seen consolidation in the right upper lobe, better demonstrated on the CT rather than the plain film radiograph, has improved and there is residual bandlike atelectasis present. No new infiltrates are seen. The pulmonary nodules seen on the CAT scan are beyond the resolution of the plain film radiographs. Again seen are old healed right rib fractures and the upper portion of an indwelling right-sided ureteral stent. XR/XR chest 2V IMPRESSION: No acute intrathoracic disease. Resolution of previously seen right upper lobe consolidation with residual atelectasis. Right-sided ureteral stent in place.
[2022-11-06 15:33] LABS: MANUAL DIFF FLAG NO
[2022-11-06 16:00] LABS: Basophils Percent Auto 0.2 % (0-2); Eosinophils Absolute Auto 0.1 X10*3/uL (0.0-0.4); Eosinophils Percent Auto 2.3 % (0-4); Hematocrit 36.6 % (37.0-47.0); Hemoglobin 11.7 g/dl (12.0-16.0); Imm Gran Abs Auto 0.01 X10*3/uL (0.00-0.03); Imm Gran Pct Auto 0.2 % (0.0-0.4); Lymphocytes Absolute Auto 0.8 X10*3/uL (1.2-4.9); Lymphocytes Percent Auto 17.4 % (20-40); Mean Corpuscular Volume 87.6 fL (80.0-98.0); Mean Platelet Volume 8.8 fL (9.4-12.3); Monocytes Absolute Auto 0.5 X10*3/uL (0.1-1.2); Monocytes Percent Auto 10.6 % (2-11); Neutrophils Absolute Auto 3.3 x10*3/uL (2.0-8.3); Neutrophils Percent Auto 69.3 % (45-73); Platelet Count 239 X10*3/uL (160-400); Red Blood Count 4.18 X10*6/uL (4.20-5.50); Red Cell Distribution Width 14.5 % (11.0-16.0); White Blood Count 4.7 X10*3/uL (4.8-10.8)
[2022-11-06 16:24] LABS: Alanine Aminotransferase 8 U/L (0-31); Albumin Level 4.3 g/dL (3.5-5.0); Alkaline Phosphatase 97 U/L (39-117); Anion Gap 11 (12-20); Aspartate Amino Transferase 14 U/L (5-31); Bilirubin Total 0.3 mg/dL (0.0-1.0); Blood Urea Nitrogen 25 mg/dL (9-16); Calcium 9.3 mg/dL (8.4-10.2); Carbon Dioxide 25 mmol/L (22-29); Chloride 108 mmol/L (96-108); Estimated Glomerular Filt Rate 59; Glucose Random 87 mg/dL (60-115); Potassium 4.5 mmol/L (3.3-5.1); Sodium 139 mmol/L (135-145)
== END 2022-11-06 15:20 | disposition home or self-care (01) ==
LOC: HO.LAB 15:19
PROVIDERS: PCP Internal Medicine; Visit Provider Internal Medicine
DX: I10 Essential (primary) hypertension (principal); Z87.01 Personal history of pneumonia (recurrent)
CPT/HCPCS: 36415; 71046; 80053; 85025

== ENCOUNTER 2023-03-20 11:34 | Outpatient (REF) | payer MEDICARE, SELFPAY ==
--- NOTE | ~2023-03-20 | MM_ITS ---
EXAMINATION: MM SCREENING DIGITAL BREAST TOMOSYNTHESIS, BILATERAL CLINICAL INFORMATION: Screening. Asymptomatic. The lifetime risk of breast cancer based on the Tyrer-Cuzick Model is 5%. COMPARISON: Mammography: March 14, 2022 and studies dating back to August 15, 2016 TECHNIQUE: Digital breast tomosynthesis is performed in both the craniocaudal and mediolateral oblique views along with computer-aided detection (CAD). Synthesized 2D images are generated from the tomosynthesis. FINDINGS: There are scattered areas of fibroglandular density (ACR BI-RADS breast composition Category b). There are no significant masses, abnormal calcifications, or other abnormalities. MM/MM tomosynthesis screening BI IMPRESSION: No significant changes from prior exam. ASSESSMENT: BI-RADS 1: Negative RECOMMENDATION: Routine annual mammography screening. This patient's information was entered into a reminder system with a target due date for their next mammogram.
== END 2023-03-20 11:35 | disposition home or self-care (01) ==
LOC: HO.MAMMO 11:34
PROVIDERS: PCP Internal Medicine; Visit Provider Internal Medicine
DX: Z12.31 Encounter for screening mammogram for malignant neoplasm of breast (principal)
CPT/HCPCS: 77063; 77067

== ENCOUNTER 2023-05-09 09:39 | Outpatient (REF) | payer MEDICARE, SELFPAY ==
--- NOTE | ~2023-05-09 | XR_ITS ---
EXAMINATION: XR CHEST CLINICAL INFORMATION: Reason for Exam COUGH,COPD,RONCHI RLL COMPARISON: Chest radiograph 11/06/2022, CT chest 09/22/2022 TECHNIQUE: 2 views of the chest FINDINGS: Lines and tubes: Partially imaged right nephroureteral stent. Few relatively bandlike opacities in the right upper lung, possibly slightly decreased from prior however persistent, possibly reflective of scarring however recommend further evaluation with nonemergent contrast enhanced CT chest to ensure no underlying lesion. No pleural effusion. No pneumothorax. Unchanged cardiomediastinal silhouette. Chronic bilateral rib fracture deformities. Mild wedging of multiple midthoracic vertebral bodies unchanged. XR/XR chest 2V IMPRESSION: 1. Few relatively bandlike opacities in the right upper lung, possibly slightly decreased from prior however persistent, possibly reflective of scarring however recommend further evaluation with nonemergent contrast enhanced CT chest to ensure no underlying lesion.
== END 2023-05-09 09:40 | disposition home or self-care (01) ==
LOC: HO.XRAY 09:39
PROVIDERS: PCP Internal Medicine; Visit Provider Internal Medicine
DX: R05.9 Cough, unspecified (principal); J44.9 Chronic obstructive pulmonary disease, unspecified
CPT/HCPCS: 71046

== ENCOUNTER 2023-09-05 11:31 | Outpatient (REF) | payer MEDICARE, SELFPAY ==
--- NOTE | ~2023-09-05 | XR_ITS ---
EXAMINATION: XR CHEST CLINICAL INFORMATION: Cough. COMPARISON: 05/09/2023 TECHNIQUE: 2 views of the chest were obtained. FINDINGS: Emphysematous changes. Hyperexpanded lungs. Slightly more conspicuous irregular focus in the right perihilar region. No focal consolidation. No pleural effusion. Cardiac silhouette is unchanged. XR/XR chest 2V IMPRESSION: Slightly more conspicuous irregular focus in the right perihilar region possibly representing scarring, however, chest CT may be considered to exclude underlying lesion.
== END 2023-09-05 11:32 | disposition home or self-care (01) ==
LOC: HO.XRAY 11:31
PROVIDERS: PCP Internal Medicine; Visit Provider Internal Medicine
DX: J44.9 Chronic obstructive pulmonary disease, unspecified (principal); R05.9 Cough, unspecified; R06.2 Wheezing; J06.9 Acute upper respiratory infection, unspecified
CPT/HCPCS: 71046

== ENCOUNTER 2024-03-22 12:42 | Outpatient (REF) | payer MEDICARE, SELFPAY ==
--- NOTE | ~2024-03-22 | MM_ITS ---
EXAMINATION: MM SCREENING DIGITAL BREAST TOMOSYNTHESIS, BILATERAL CLINICAL INFORMATION: Screening. Asymptomatic. COMPARISON: Mammography: This study is compared with prior exams dating back to 2018. TECHNIQUE: Digital breast tomosynthesis is performed in both the craniocaudal and mediolateral oblique views along with computer-aided detection (CAD). Synthesized 2D images are generated from the tomosynthesis. FINDINGS: The breasts are almost entirely fatty (ACR BI-RADS breast composition Category a). There are no significant masses, abnormal calcifications, or other abnormalities. There is a central venous access port superior aspect of the right breast. MM/MM tomosynthesis screening BI IMPRESSION: No mammographic evidence of malignancy. ASSESSMENT: BI-RADS BI-RADS 1 - Negative RECOMMENDATION: Routine annual mammography screening. 1 year F/U This examination should not preclude the clinical evaluation of a suspicious palpable abnormality. This patient's information was entered into a reminder system with a target due date for their next mammogram.
== END 2024-03-22 12:43 | disposition home or self-care (01) ==
LOC: HO.MAMMO 12:42
PROVIDERS: PCP Internal Medicine; Visit Provider Internal Medicine
DX: Z12.31 Encounter for screening mammogram for malignant neoplasm of breast (principal)
CPT/HCPCS: 77063; 77067

== ENCOUNTER → 2024-03-22 12:45 | Outpatient (BNV) | payer MEDICARE, SELFPAY | PROVIDERS: PCP Internal Medicine; Visit Provider Radiology Diagnostic Radiology | DX: Z12.31 Encounter for screening mammogram for malignant neoplasm of breast (principal) | CPT/HCPCS: 77063; 77067 ==

== ENCOUNTER 2024-08-10 14:27 | Outpatient (REF) | payer MEDICARE, SELFPAY ==
--- NOTE | ~2024-08-10 | XR_ITS ---
EXAMINATION: XR CHEST CLINICAL INFORMATION: Cough, congestion COMPARISON: 09/05/2023 TECHNIQUE: 2 views of the chest were obtained. FINDINGS: Chronic interstitial lung disease. No consolidation, edema, or definite effusion. There is an irregular opacity in the right upper lobe which is similar to the previous study although there appears to be an increase in soft tissue component in the more lateral aspect correlate with the chest CTA which is pending. XR/XR chest 2V IMPRESSION: Chronic interstitial lung disease. Irregular opacity in the right upper lobe is similar to the previous study although there appears to be an increase in soft tissue component in the more lateral aspect. Correlate with the chest CTA which is pending. Electronically signed by: Alberto Ramírez MD 08/10/2024 04:50 PM EDT
[2024-08-10 14:51] LABS: MANUAL DIFF FLAG NO
[2024-08-10 15:33] LABS: Basophils Absolute Auto 0.1 X10*3/uL (0.0-0.2); Basophils Percent Auto 0.4 % (0-2); Eosinophils Percent Auto 0.1 % (0-4); Hematocrit 34.6 % (37.0-47.0); Hemoglobin 10.9 g/dl (12.0-16.0); Imm Gran Abs Auto 0.41 X10*3/uL (0.00-0.03); Imm Gran Pct Auto 2.9 % (0.0-0.4); Lymphocytes Absolute Auto 0.6 X10*3/uL (1.2-4.9); Lymphocytes Percent Auto 3.9 % (20-40); Mean Corpuscular HGB Conc 31.5 g/dl (31.0-35.0); Mean Corpuscular Hemoglobin 26.4 pg (27.0-33.0); Mean Corpuscular Volume 83.8 fL (80.0-98.0); Mean Platelet Volume 9.4 fL (9.4-12.3); Monocytes Absolute Auto 0.7 X10*3/uL (0.1-1.2); Neutrophils Absolute Auto 12.5 x10*3/uL (2.0-8.3); Neutrophils Percent Auto 87.7 % (45-73); Platelet Count 359 X10*3/uL (160-400); Red Blood Count 4.13 X10*6/uL (4.20-5.50); Red Cell Distribution Width 14.6 % (11.0-16.0); White Blood Count 14.3 X10*3/uL (4.8-10.8)
[2024-08-10 16:01] LABS: Alanine Aminotransferase 11 U/L (0-31); Albumin Level 3.7 g/dL (3.5-5.0); Alkaline Phosphatase 99 U/L (39-117); Anion Gap 17 (12-20); Aspartate Amino Transferase 19 U/L (5-31); Bilirubin Total 0.4 mg/dL (0.0-1.0); Blood Urea Nitrogen 43 mg/dL (9-16); Calcium 9.8 mg/dL (8.4-10.2); Carbon Dioxide 26 mmol/L (22-29); Chloride 98 mmol/L (96-108); Estimated Glomerular Filt Rate 50; Glucose Random 117 mg/dL (60-115); Potassium 4.9 mmol/L (3.3-5.1); Sodium 136 mmol/L (135-145)
== END 2024-08-10 14:28 | disposition home or self-care (01) ==
LOC: HO.XRAY 14:27
PROVIDERS: PCP Internal Medicine; Visit Provider Internal Medicine
DX: Z13.89 Encounter for screening for other disorder (principal)
CPT/HCPCS: 36415; 71046; 80053; 85025

== ENCOUNTER 2024-08-10 14:56 | Inpatient (IN) | payer MEDICARE, SELFPAY ==
[2024-08-10] VITALS (8 sets, daily range): BP systolic 115–123; BP diastolic 55–64; PULSE 97–120; RESP 22–37; TEMP 36.4–36.9; O2SAT 77–100; BMI 22.9
--- NOTE | ~2024-08-10 | CT_ITS ---
EXAMINATION: CT ANGIOGRAM OF THE CHEST WITH AND WITHOUT CONTRAST (CT PULMONARY ANGIOGRAM FOR PE) CLINICAL INFORMATION: Hypoxia. Cough. COMPARISON: Chest radiograph from 08/10/2024. CT chest from 09/30/2022. TECHNIQUE: Prior to contrast administration, noncontrast localization images were obtained. Subsequently, multidetector volumetric imaging was performed from the thoracic inlet to below the diaphragms following the administration of 65 mL Omnipaque 350 intravenous contrast. No contrast reaction reported. Sagittal, coronal, and MIP oblique sagittal reformatted images were obtained on the CT workstation, uploaded to PACS, and reviewed. This CT examination was performed using dose optimization techniques as appropriate, variously including the following: *Automated exposure control. *Adjustment of mA and/or kV according to patient size (this includes techniques or standardized protocols for targeted exams where dose is matched to indication/reason for exam; i.e. extremities or head). *Use of iterative reconstruction technique. DLP: 290 mGy-cm FINDINGS: QUALITY OF STUDY/CONTRAST BOLUS: Satisfactory. PULMONARY ARTERIES: No central or segmental pulmonary emboli. THORACIC AORTA: The thoracic aorta is of normal contour and caliber with moderate calcific atherosclerotic disease. No evidence of thoracic aortic aneurysm or dissection. LUNG: Extensive centrilobular emphysema. Extensive subcentimeter irregular opacities scattered predominantly throughout the dependent lungs, medial aspect of the left upper lobe, and anterolateral aspect of the right upper lobe. Chronic confluent opacity in the posterior aspect of the lingula. Confluent consolidation in the central region of the right upper lobe. Moderately prominent lymphoid tissue in the bilateral peribronchial/bihilar regions. Moderate peribronchial wall thickening throughout the lungs. PLEURA: No pleural effusion or pneumothorax. MEDIASTINUM: Normal heart size. No pericardial effusion. Moderately prominent mediastinal lymph nodes, measuring up to 1 cm in the right paratracheal and subcarinal regions. No evidence of septal bowing or right heart strain. Coronary artery calcifications: Present - moderate. CHEST WALL/AXILLA: No axillary or internal mammary lymphadenopathy. OSSEOUS STRUCTURES: No acute or suspicious osseous abnormality. Moderate multilevel degenerative spondyloarthropathy of the thoracic spine. Chronic deformities of the lateral aspects right 6th-10th ribs. UPPER ABDOMEN: Atrophy of the right kidney right No reflux of contrast into the hepatic veins to suggest elevated right heart pressures. CT/CT angio chest PE protocol IMPRESSION: 1. No evidence of pulmonary embolism. 2. Extensive emphysema. Extensive subcentimeter irregular opacities scattered predominantly throughout the dependent lungs, medial aspect of the left upper lobe, and anterolateral aspect of the right upper lobe (this distribution has changed compared to exam from 2021). Confluent consolidation in the central region of the right upper lobe. Findings are suggestive of an active infectious/inflammatory process. 3. Moderate peribronchial wall thickening throughout the lungs. Moderately prominent mediastinal lymph nodes. VTE: negative. Electronically signed by: Enmanuel Hebert DO 08/10/2024 09:50 PM EDT
--- NOTE | 2024-08-10 15:11 | ECG_ITS ---
Test Reason : DYSPNEA Blood Pressure : / mmHG Vent. Rate : 109 BPM Atrial Rate : 109 BPM P-R Int : 148 ms QRS Dur : 112 ms QT Int : 360 ms P-R-T Axes : 042 039 -40 degrees QTc Int : 484 ms Sinus tachycardia with Premature atrial complexes Right bundle branch block T wave abnormality, consider inferolateral ischemia Abnormal ECG When compared with ECG of 30-SEP-2022 19:50, T wave inversion now evident in Lateral leads Referred By: Natalie Ordoñez Electronically Signed By:SHIVAM NEUMANN MD
--- NOTE | 2024-08-10 15:11 | ED_ITS ---
HPI - General Adult General Chief complaint: Dyspnea Stated complaint: Pneumonia? Sent by Dr Guzman Seen by Provider: 08/10/24 15:09 Source: patient, family and old records reviewed Mode of arrival: ambulatory Limitations: no limitations History of Present Illness ED Provider: MIRIAM JONES narrative: 69 yo female with PMH of HTN, BREANNE, colon cancer 4 years ago completed treatment at [facility] [place] 4 years ago did have mets to lungs, in May found out it recurred she started treatment again - notes received her first chemo infusion 2 weeks ago. One week ago she started with fatigue, fevers up to 100.7, chills, anorexia and difficulty breathing with coarse productive cough. No sick contacts or travel. She went to Dr. Padron's office today who referred her after CXR on arrival to ED initial sats 77% placed on 5L oxymask with sats now above 95%. She has had pneumonia in the past. MD complaint: cough, shortness of breath Onset (ago): week(s) (1) Location: chest Radiation: non-radiation Severity: severe Relieving factors: rest Exacerbating factors: movement Associated symptoms: cough, fever/chills, loss of appetite, malaise, nausea/vomiting and weakness Treatments prior to arrival: none Related Data Home Medications ?Medication ?Instructions ?Recorded ?Confirmed amlodipine 5 mg tablet 1 tab PO DAILY 09/30/22 08/10/24 Allergies Allergy/AdvReac Type Severity Reaction Status Date / Time infliximab [Remicade] AdvReac Unknown arthralgia Verified 08/10/24 15:07 salacyclic acid wart remover Allergy Unknown hives, Uncoded 08/10/24 15:07 swollen joints Asacol AdvReac Unknown GI upset Uncoded 08/10/24 15:07 Review of Systems 2 Review of Systems: Constitutional : pos Fever, pos Chills ENT/Mouth : No Hoarseness, No sore throat, No Rhinorrhea Eyes: No Redness, No Discharge, No Vision Changes Cardiovascular : No Chest Pain, positive SOB, positive Dyspnea on Exertion, No Edema Respiratory : positive Cough, pos Sputum, positive Wheezing, Gastrointestinal : No Nausea, No Vomiting, No Diarrhea, No abdominal Pain Genitourinary : No Dysuria, No Hematuria Musculoskeletal : No joint pain, No Myalgias Skin : No rash Neuro : pos Weakness, No Numbness, No Headache Psych : No anxiety, depression All other systems reviewed and are negative [facility] Past Medical History Attestation statement: The following information was validated with the patient. Source: old records reviewed Medical History Hypertension Ureteral stent present Lung cancer Cancer of colon with rectum Surgical History Hx of appendectomy Hx of tonsillectomy Social History Social History Household Members: Spouse Housing: Condominium Do you presently have visiting nurse or other home services: No Alcohol intake: never Patient Tobacco Use Status: Former Tobacco user Tobacco use type: Cigarette Second Hand Smoke Exposure: No service: No Current occupational status: disabled Physical Exam ED Vital Signs: Vital Signs - 24 hr 08/10/24 15:02 08/10/24 15:36 08/10/24 16:36 Temperature 97.6 F Pulse Rate 102 H 97 Pulse Rate [Monitor] Respiratory Rate 22 H 37 H 36 H Blood Pressure 123/62 Pulse Oximetry 77 L Oxygen Delivery Method Room Air Oxygen Flow Rate 08/10/24 16:38 08/10/24 17:46 08/10/24 19:06 Temperature Pulse Rate 97 109 H Pulse Rate [Monitor] 120 H Respiratory Rate 34 H 30 H 34 H Blood Pressure Pulse Oximetry Oxygen Delivery Method Oxygen Flow Rate 08/10/24 19:56 08/10/24 21:06 Temperature 97.5 F 98.4 F Pulse Rate 104 H 110 H Pulse Rate [Monitor] Respiratory Rate 29 H 25 H Blood Pressure 115/55 L 120/64 Pulse Oximetry 97 95 Oxygen Delivery Method Nasal Cannula Nasal Cannula Oxygen Flow Rate 5 5 BMI result Body Mass Index 22.9 Appearance: Alert. Oriented X3. Mild acute distress. Eyes: Pupils equal, round and reactive to light. ENT: Pharynx dry MM Neck: Normal inspection. Neck supple. CVS: tachycardic heart rate and rhythm. Pulses normal. Respiratory: Mild respiratory distress - tachypnea and retractions. Breath sounds coarse and diminished, crackles in R base Abdomen: Soft and nontender. Skin: Skin warm and dry. pale skin color. Normal skin turgor. Extremities: No lower extremity edema. No calf ttp Neuro: Oriented X 3. No motor deficit. No sensory deficit. Course Course Course Narrative: RME: 69-year-old female brought to the ED for hypoxia. Sent for primary care provider for possible pneumonia. Patient states history of cancer. Patient last night had fever and coughing with shortness of breath. Negative for any lower extremity swelling or pitting edema. Her O2 sats 79 73% on room air. Patient placed on oxygen brought to room immediately. Labs treatment ordered Reevaluation(s) Reevaluation #1: signed out to Dr. Thompson pending work up Medications Administered Generic Name Dose Route Start Last Admin Trade Name Freq PRN Reason Stop Dose Admin Albuterol/Ipratropium 3 ml 08/11/24 08:00 08/11/24 11:29 Albuterol/Iprat 2.5/0.5mg 3 Ml Ampul.Neb INHALE 3 ml RQ4H WHILE AWAKE NIEVES Administration Albuterol/Ipratropium 3 ml 08/10/24 23:11 08/11/24 05:04 Albuterol/Iprat 2.5/0.5mg 3 Ml Ampul.Neb INHALE 3 ml Q4H PRN Administration Wheezing Amlodipine Besylate 5 mg 08/11/24 09:00 08/11/24 09:43 Amlodipine Besylate 5 Mg Tablet PO 5 mg DAILY NIEVES Administration Protocol Aspirin 81 mg 08/11/24 09:00 08/11/24 09:42 Aspirin Enteric Coated 81 Mg Tablet. PO 81 mg DAILY NIEVES Administration Atorvastatin Calcium 20 mg 08/11/24 10:15 08/11/24 11:29 Atorvastatin Calcium 20 Mg Tablet PO 20 mg DAILY NIEVES Administration Ceftriaxone Sodium 1 gm/ 50 mls @ 100 mls/hr 08/10/24 23:00 08/11/24 00:30 Sodium Chloride IV Infused Q24H NIEVES Infusion Azithromycin 500 mg/ Sodium 250 mls @ 125 mls/hr 08/11/24 00:00 08/11/24 02:48 Chloride IV Infused Q24H NIEVES Infusion Prednisone 40 mg 08/11/24 09:00 08/11/24 09:42 Prednisone 20 Mg Tablet PO 40 mg DAILY NIEVES Administration Sodium Chloride 3 ml 08/11/24 00:00 08/11/24 09:47 0.9 % Sodium Chloride Flush 3 Ml Syringe IVFLUSH 3 ml QSHIFT NIEVES Administration Discontinued Medications Generic Name Dose Route Start Last Admin Trade Name Freq PRN Reason Stop Dose Admin Albuterol Sulfate 5 mg/ 7.5 mg 08/10/24 16:37 08/10/24 16:42 Albuterol Sulfate 2.5 mg INHALE 08/10/24 16:38 7.5 mg ONCE ONE Administration Albuterol Sulfate 5 mg 08/10/24 18:13 08/10/24 19:05 Albuterol Sulfate (0.083%) 2.5 Mg/3 Ml Vial.Neb INHALE 08/10/24 18:14 5 mg ONCE ONE Administration Aspirin 325 mg 08/10/24 23:12 08/11/24 00:46 Aspirin Enteric Coated 325 Mg Tablet.Dr PO 08/10/24 23:13 325 mg ONCE ONE Administration Albuterol Sulfate 7.5 mg/ 0 mg 08/10/24 15:37 08/10/24 15:46 Albuterol/Ipratropium 3 ml INHALE 08/10/24 15:38 10 each ONCE ONE Administration Enoxaparin Sodium 60 mg 08/10/24 23:12 08/11/24 00:48 Enoxaparin Sodium 60 Mg/0.6 Ml Syringe SUBCUT 08/10/24 23:13 60 mg ONCE ONE Administration Cefepime HCl 2 gm/ Sodium 50 mls @ 100 mls/hr 08/10/24 15:12 08/10/24 16:13 Chloride IV 08/10/24 15:41 Infused ONCE ONE Infusion Vancomycin HCl 1,500 mg/ 500 mls @ 333.333 mls/hr 08/10/24 15:26 08/10/24 17:44 Sodium Chloride IV 08/10/24 16:55 Infused ONCE ONE Infusion Lactated Ringer's 1,000 mls @ 999 mls/hr 08/10/24 15:36 08/10/24 17:54 Lr IV 08/10/24 16:36 Infused .Q1H1M ONE Infusion Iohexol 65 ml 08/10/24 18:12 08/10/24 18:13 Iohexol 350 Mg/Ml 100 Ml Infus..Btl IV 08/10/24 18:13 65 ml ONCE ONE Administration Methylprednisolone Sodium Succinate 60 mg 08/10/24 15:14 08/10/24 16:12 Methylprednisolone Sod Succ 125 Mg/2 Ml Vial IVPUSH 08/10/24 15:15 60 mg ONCE ONE Administration Medical Decision Making Medical Decision Making [facility] Narrative: 69 yo female with PMH of HTN, BREANNE, colon cancer with mets to lungs states initial cancer treatment 4 years ago did well now with recurrence in May back on therapy and last chemo 2 weeks ago for 1 week cough, difficulty breathing, fevers up to 100.7. She is treated at [facility] [place]. At this time given her chemotherapy will obtain labs, lactic acid, cultures, CTA for PE/pneumonia, IVF, IV solumedrol and broad abx including cefepime and vancomycin. Planned admit for hypoxia, high flow if she gets tired. 2100 patient with acute respiratory failure with chronic lung disease with Mets CTA chest without any saddle emboli patient has significant hypoxia will admit patient for acute hypoxic respiratory failure also with elevated troponin and BNP clinically not in heart failure Differential Diagnosis Differential Diagnoses: The differential diagnosis associated with the presentation includes VTE, pneumonia Admission/Observation Consideration of admission/observation: Escalation of care including admission/observation considered needs admission for hypoxia Consult Healthcare Provider Management of the patient was discussed with: Hospitalist Lab Data [facility] Lab Attestation statement: I reviewed the patient's lab results. 08/11/24 04:13 08/11/24 04:13 Labs: Lab Results 08/10/24 08/10/24 08/10/24 Range/Units 15:42 15:43 15:50 WBC 13.9 H (4.8-10.8) X10*3/uL RBC 3.98 L (4.20-5.50) X10*6/uL Hgb 10.6 L (12.0-16.0) g/dl Hct 33.1 L (37.0-47.0) % MCV 83.2 (80.0-98.0) fL MCH 26.6 L (27.0-33.0) pg MCHC 32.0 (31.0-35.0) g/dl RDW 14.6 (11.0-16.0) % Plt Count 337 (160-400) X10*3/uL MPV 9.1 L (9.4-12.3) fL Immature Gran % (Auto) 3.0 H (0.0-0.4) % Neut % (Auto) 87.8 H (45-73) % Lymph % (Auto) 4.2 L (20-40) % Mccone % (Auto) 4.2 (2-11) % Eos % (Auto) 0.0 (0-4) % Baso % (Auto) 0.8 (0-2) % Lymph # (Auto) 0.6 L (1.2-4.9) X10*3/uL Mccone # (Auto) 0.6 (0.1-1.2) X10*3/uL Eos # (Auto) 0.0 (0.0-0.4) X10*3/uL Baso # (Auto) 0.1 (0.0-0.2) X10*3/uL Abs Immat Gran (auto) 0.42 H (0.00-0.03) X10*3/uL Absolute Neuts (auto) 12.2 H (2.0-8.3) x10*3/uL Absolute Nucleated RBC 0.000 (0.0-0.012) X10*3/uL Nucleated RBC % (auto) 0.0 (0.0-0.2) /100WBC PT 13.4 H (10.9-12.4) SEC INR 1.2 H (0.9-1.1) VBG pH 7.33 (7.32-7.43) VBG pCO2 53 mmHg VBG pO2 45 mmHg VBG HCO3 28 H (22-26) mmol/L VBG O2 Saturation 61.0 % VBG Base Excess 1.8 mmol/L Sodium 137 (135-145) mmol/L Potassium 4.7 (3.3-5.1) mmol/L Chloride 98 (96-108) mmol/L Carbon Dioxide 27 (22-29) mmol/L Anion Gap 17 (12-20) BUN 44 H (9-16) mg/dL Creatinine 1.06 (0.5-1.4) mg/dL Estim Creat Clear Calc 39.6 Estimated GFR 51 Random Glucose 108 (60-115) mg/dL Lactic Acid 1.1 (0.5-2.0) mmol/L Calcium 9.5 (8.4-10.2) mg/dL Magnesium 2.5 (1.6-2.6) mg/dL Total Bilirubin 0.4 (0.0-1.0) mg/dL Direct Bilirubin 0.2 (0.0-0.5) mg/dL AST 22 (5-31) U/L ALT 13 (0-31) U/L Alkaline Phosphatase 88 (39-117) U/L Troponin I High Sens 565.0 H* (<3.5-17.0) ng/L C-Reactive Protein 30.64 H (< or = 0.50) mg/dL B-Natriuretic Peptide 696 H (<100) pg/mL Total Protein 7.9 (6.5-8.0) g/dL Albumin 3.8 (3.5-5.0) g/dL Lipase 35 (8-78) U/L Procalcitonin 0.48 ng/mL Urine Color Urine Appearance Urine pH (5.0-9.0) Ur Specific Willard (1.005-1.025) Urine Protein (Neg-Trace) mg/dL Urine Glucose (UA) (Negative) mg/dL Urine Ketones (Negative) mg/dL Urine Blood (Negative) Urine Nitrite (Negative) Ur Leukocyte Esterase (Negative) Urine RBC (0-2) /HPF Urine WBC (0-5) /HPF Ur Squamous Epith Cells (0-2) /HPF Urine Bacteria (None Seen) Hyaline Casts (0-2) /LPF Influenza Type A (PCR) NEGATIVE (Negative) Influenza Type B (PCR) NEGATIVE (Negative) RSV RNA Qual (PCR) NEGATIVE (Negative) SARS-CoV-2 RNA (RT-PCR) NEGATIVE (Negative) 08/10/24 08/10/24 Range/Units 17:38 21:05 WBC (4.8-10.8) X10*3/uL RBC (4.20-5.50) X10*6/uL Hgb (12.0-16.0) g/dl Hct (37.0-47.0) % MCV (80.0-98.0) fL MCH (27.0-33.0) pg MCHC (31.0-35.0) g/dl RDW (11.0-16.0) % Plt Count (160-400) X10*3/uL MPV (9.4-12.3) fL Immature Gran % (Auto) (0.0-0.4) % Neut % (Auto) (45-73) % Lymph % (Auto) (20-40) % Mccone % (Auto) (2-11) % Eos % (Auto) (0-4) % Baso % (Auto) (0-2) % Lymph # (Auto) (1.2-4.9) X10*3/uL Mccone # (Auto) (0.1-1.2) X10*3/uL Eos # (Auto) (0.0-0.4) X10*3/uL Baso # (Auto) (0.0-0.2) X10*3/uL Abs Immat Gran (auto) (0.00-0.03) X10*3/uL Absolute Neuts (auto) (2.0-8.3) x10*3/uL Absolute Nucleated RBC (0.0-0.012) X10*3/uL Nucleated RBC % (auto) (0.0-0.2) /100WBC PT (10.9-12.4) SEC INR (0.9-1.1) VBG pH (7.32-7.43) VBG pCO2 mmHg VBG pO2 mmHg VBG HCO3 (22-26) mmol/L VBG O2 Saturation % VBG Base Excess mmol/L Sodium (135-145) mmol/L Potassium (3.3-5.1) mmol/L Chloride (96-108) mmol/L Carbon Dioxide (22-29) mmol/L Anion Gap (12-20) BUN (9-16) mg/dL Creatinine (0.5-1.4) mg/dL Estim Creat Clear Calc Estimated GFR Random Glucose (60-115) mg/dL Lactic Acid (0.5-2.0) mmol/L Calcium (8.4-10.2) mg/dL Magnesium (1.6-2.6) mg/dL Total Bilirubin (0.0-1.0) mg/dL Direct Bilirubin (0.0-0.5) mg/dL AST (5-31) U/L ALT (0-31) U/L Alkaline Phosphatase (39-117) U/L Troponin I High Sens 542.5 H* (<3.5-17.0) ng/L C-Reactive Protein (< or = 0.50) mg/dL B-Natriuretic Peptide (<100) pg/mL Total Protein (6.5-8.0) g/dL Albumin (3.5-5.0) g/dL Lipase (8-78) U/L Procalcitonin ng/mL Urine Color Yellow Urine Appearance Cloudy Urine pH 5.5 (5.0-9.0) Ur Specific Willard >= 1.030 H (1.005-1.025) Urine Protein 300 (3+) H (Neg-Trace) mg/dL Urine Glucose (UA) Negative (Negative) mg/dL Urine Ketones Negative (Negative) mg/dL Urine Blood Large (3+) H (Negative) Urine Nitrite Negative (Negative) Ur Leukocyte Esterase Moderate (2+) H (Negative) Urine RBC >20 H (0-2) /HPF Urine WBC >50 H (0-5) /HPF Ur Squamous Epith Cells 0-2 (0-2) /HPF Urine Bacteria 2+ (None Seen) Hyaline Casts 11-20 (0-2) /LPF Influenza Type A (PCR) (Negative) Influenza Type B (PCR) (Negative) RSV RNA Qual (PCR) (Negative) SARS-CoV-2 RNA (RT-PCR) (Negative) Independent Interpretation I performed an independent interpretation of an: EKG Interpretation: Rate: 109 Rhythm: sinus tachycardia with PACs [place]: normal Normal P waves. Normal KILO. RBBB ST T wave : inverted t waves V1-V4, no ADELITA, inverted t waves inf leads qTC: 484 prior studies: some new changes ant leads The study has been interpreted contemporaneously by me. . Independent Historian Clinical information obtained from an independent historian. History obtained from or confirmed by: Spouse External Record Review External record reviewed: Office record Discharge Plan Discharge Clinical Impression: Acute hypoxemic respiratory failure Patient Disposition: Admitted As Inpatient Interventions: Admission Worksheet (ED) Last Done: 08/11/24 11:36 Discharge Date/Time: 08/11/24 12:05
[2024-08-10] MEDS: cefEPime HCl 2 GM in 0.9 % Sodium Chloride 50 ML IV (15:45)
[2024-08-10] MEDS: Albuterol Sulfate 7.5 MG, Albuterol/Iprat 2.5/0.5MG 3 ML 3 ML INHALE (15:46)
[2024-08-10 15:52] LABS: MANUAL DIFF FLAG NO
[2024-08-10 15:54] LABS: Basophils Absolute Auto 0.1 X10*3/uL (0.0-0.2); Basophils Percent Auto 0.8 % (0-2); Hematocrit 33.1 % (37.0-47.0); Hemoglobin 10.6 g/dl (12.0-16.0); Imm Gran Abs Auto 0.42 X10*3/uL (0.00-0.03); Lymphocytes Absolute Auto 0.6 X10*3/uL (1.2-4.9); Lymphocytes Percent Auto 4.2 % (20-40); Mean Corpuscular Hemoglobin 26.6 pg (27.0-33.0); Mean Corpuscular Volume 83.2 fL (80.0-98.0); Mean Platelet Volume 9.1 fL (9.4-12.3); Monocytes Absolute Auto 0.6 X10*3/uL (0.1-1.2); Monocytes Percent Auto 4.2 % (2-11); Neutrophils Absolute Auto 12.2 x10*3/uL (2.0-8.3); Neutrophils Percent Auto 87.8 % (45-73); Platelet Count 337 X10*3/uL (160-400); Red Blood Count 3.98 X10*6/uL (4.20-5.50); Red Cell Distribution Width 14.6 % (11.0-16.0); White Blood Count 13.9 X10*3/uL (4.8-10.8)
[2024-08-10 15:54] LABS: VBG Base Excess 1.8 mmol/L; VBG HCO3 28 mmol/L (22-26); VBG pCO2 53 mmHg; VBG pH 7.33 (7.32-7.43); VBG pO2 45 mmHg
[2024-08-10 15:55] LABS: Venous Blood Gas Refer to POC result
[2024-08-10] MEDS: vancomycin HCL 1,500 MG in 0.9 % Sodium Chloride 500 ML 333.33 MG IV (16:04)
[2024-08-10 16:07] LABS: INTERNATIONAL NORM RATIO 1.2 (0.9-1.1); Prothrombin Time 13.4 SEC (10.9-12.4)
[2024-08-10 16:11] LABS: Lactic Acid 1.1 mmol/L (0.5-2.0)
[2024-08-10] MEDS: Lactated Ringers 1,000 ML 999 ML IV (16:11)
[2024-08-10] MEDS: methylPREDNISolone Sod Succ 125 MG/2 ML VIAL 60 MG IVPUSH (16:12)
[2024-08-10 16:21] LABS: B Type Natriuretic Peptide 696 pg/mL (<100)
[2024-08-10 16:24] LABS: Alanine Aminotransferase 13 U/L (0-31); Albumin Level 3.8 g/dL (3.5-5.0); Alkaline Phosphatase 88 U/L (39-117); Anion Gap 17 (12-20); Aspartate Amino Transferase 22 U/L (5-31); Bilirubin Direct 0.2 mg/dL (0.0-0.5); Bilirubin Total 0.4 mg/dL (0.0-1.0); Blood Urea Nitrogen 44 mg/dL (9-16); C Reactive Protein 30.64 mg/dL (< or = 0.50); Calcium 9.5 mg/dL (8.4-10.2); Carbon Dioxide 27 mmol/L (22-29); Chloride 98 mmol/L (96-108); Creatinine Clr Calc Pharmacy 39.6; Estimated Glomerular Filt Rate 51; Glucose Random 108 mg/dL (60-115); Lipase 35 U/L (8-78); Magnesium 2.5 mg/dL (1.6-2.6); Potassium 4.7 mmol/L (3.3-5.1); Sodium 137 mmol/L (135-145); Total Protein 7.9 g/dL (6.5-8.0)
[2024-08-10 16:39] LABS: Procalcitonin 0.48 ng/mL
[2024-08-10] MEDS: Albuterol Sulfate 5 MG, Albuterol Sulfate (0.083%) 2.5 MG 7.5 MG INHALE (16:42)
[2024-08-10 16:44] LABS: Influenza A PCR NEGATIVE (Negative); Influenza B PCR NEGATIVE (Negative); Resp Syncy Virus RNA Qual PCR NEGATIVE (Negative); SARS COV2 PCR INHOUSE NEGATIVE (Negative)
--- NOTE | 2024-08-10 17:48 | PC.NURSE ---
late charting due to patient care, patient arrives through [facility] with cc of dyspnea, patient with hx of colon cancer that metastasized to her lung, recently discovered that the cancer is now back in her pelvic area . patient was noted to be hypoxic in the 70s in triage, increased to 95% on 5L oxymask, patient wheezing throughout, respiratory called to bedside for treatments. patient alert and oriented, states at home she had some low grade fevers, however has been afebrile here. patient denies chest pain, only complaining of shortness of breath, denies swelling to extremeties, unknown if she has had any recent sick contacts, states she took a covid test at home and it was negative. 18g PIV placed by this RN in RAC, port accessed with sterile procedure, and 20g PIV placed in left wrist. patient medicated per JAN and placed on shelter monitor, EKG was completed by EDT upon her arrival. patient with intermittent productive sounding cough that she states she has had for a while. wheezing appreciated upon auscultation of lung biswas, patient denies nausea vomiting or diarrhea, denies any burning or difficulty urinating. patient had period of hypotension, has since resolved SBPs now in the 130s. plan of care remains ongoing, repeat troponin drawn by this RN and sent to lab. patient awaiting CT scan at this time
[2024-08-10] MEDS: iohexoL 350 MG/ML 100 ML INFUS..BTL 65 ML IV (18:13)
[2024-08-10 18:35] LABS: Troponin-I High Sensitivity 542.5 ng/L (<3.5-17.0)
[2024-08-10] MEDS: Albuterol Sulfate (0.083%) 2.5 MG/3 ML VIAL.NEB 5 MG INHALE (19:05)
[2024-08-10 21:18] LABS: Appearance Urine Cloudy; Color Urine Yellow; Glucose Urine UA Negative (Negative); Leukocyte Esterase Urine Moderate (2+) (Negative); Nitrite Urine Negative (Negative); PH 5.5 (5.0-9.0); Specific Gravity - Urine >= 1.030 (1.005-1.025); UMIC TRIGGER UACC YES; Urine Blood Large (3+) (Negative); Urine Ketones Negative (Negative); Urine Protein 300 (3+) mg/dL (Neg-Trace)
[2024-08-10 21:30] LABS: Bacteria Urine 2+ (None Seen); RBC Urine >20 /HPF (0-2); Squamous Epithelial Cell Urine 0-2 /HPF (0-2); UACC Culture Trigger YES; WBC Urine >50 /HPF (0-5)
--- NOTE | 2024-08-10 21:59 | PM.IMHP ---
History of Present Illness Date of Service: 08/10/24 Chief Complaint: Dyspnea This is a 67-year-old female with pertinent history of hypertension, colorectal cancer with pulmonary metastasis status post colectomy, chemotherapy and radiation, recurrence in 05/2024 status post chemotherapy who presents to the emergency department with complaints of shortness of breath. Patient states she started having productive cough with runny nose about a week ago. It has been constant and subsequently she developed shortness of breath, worse with exertion. Sputum was initially clear but has changed to yellowish in color. Also had chills. Documented fever up to 100.7. Patient denies nausea, vomiting, chest pain, palpitations, abdominal pain, changes in urinary or bowel habits. No orthopnea or PND. No pedal edema. Last chemotherapy session was 2 weeks ago. In the emergency department, patient was found to be hypoxemic on room air. Currently requiring 5 L supplemental oxygen to maintain normal O2 sats. Imaging with consolidation. Review of Systems Constitutional: Constitutional: Reports fatigue, Reports lethargy, Reports malaise, Reports poor appetite and Reports weakness Cardiovascular: Cardiovascular: Reports dyspnea on exertion Respiratory: Respiratory: Reports cough and Reports dyspnea on exertion Gastrointestinal: Gastrointestinal: Reports no additional gastrointestinal complaints Genitourinary: Genitourinary: Reports no additional female genitourinary complaints Neurologic: Reports weakness Endocrine: Endocrine: Reports fatigue [facility] Medical History Hypertension Ureteral stent present Lung cancer Cancer of colon with rectum Pertinent family history: Not significant due to age Surgical History Hx of appendectomy Hx of tonsillectomy Social History Household Members: Spouse Housing: House Do you presently have visiting nurse or other home services: No Alcohol intake: never Patient Tobacco Use Status: Former Tobacco user Tobacco use type: Cigarette Smoked in Last 30 Days: No Second Hand Smoke Exposure: No Use of substances other than those prescribed or required for medical reasons: No Advance Directives: No Advance Directives Information Provided: Yes service: No Current occupational status: disabled Meds Allergies Allergy/AdvReac Type Severity Reaction Status Date / Time infliximab [Remicade] AdvReac Unknown arthralgia Verified 08/10/24 15:07 salacyclic acid wart remover Allergy Unknown hives, Uncoded 08/10/24 15:07 swollen joints Asacol AdvReac Unknown GI upset Uncoded 08/10/24 15:07 Home Medications ?Medication ?Instructions ?Recorded ?Confirmed ?Last Taken ?Type amlodipine 5 mg tablet 1 tab PO DAILY 09/30/22 08/10/24 08/10/24 History Physical Exam Vital Signs and Narrative: Vital Signs: Last Vital Signs Temp 98.4 F 08/10/24 21:06 Pulse 110 H 08/10/24 21:06 Resp 25 H 08/10/24 21:06 BP 120/64 08/10/24 21:06 Pulse Ox 95 08/10/24 21:06 O2 Del Method Nasal Cannula 08/10/24 21:06 O2 Flow Rate 5 08/10/24 21:06 BMI result Body Mass Index 22.9 Middle-aged female lying in bed in mild distress on supplemental oxygen Neck supple, no JVD Tachycardic with regular rhythm, S1-S2 heard Right > left-sided crackles Abdomen soft nontender, no guarding, no rigidity, colostomy site clean Patient is awake, alert and oriented to self, place, time and person ; no focal motor deficit Psych: Normal mood No pedal edema Results Labs 08/10/24 15:42 08/10/24 15:42 Labs: Laboratory Results - last 24 hr 08/10/24 08/10/24 08/10/24 15:42 15:43 15:50 MCV 83.2 MCH 26.6 L MCHC 32.0 RDW 14.6 Plt Count 337 MPV 9.1 L Immature Gran % (Auto) 3.0 H Neut % (Auto) 87.8 H Lymph % (Auto) 4.2 L [place] % (Auto) 4.2 Eos % (Auto) 0.0 Baso % (Auto) 0.8 Lymph # (Auto) 0.6 L [place] # (Auto) 0.6 Eos # (Auto) 0.0 Baso # (Auto) 0.1 Abs Immat Gran (auto) 0.42 H Absolute Neuts (auto) 12.2 H Absolute Nucleated RBC 0.000 Nucleated RBC % (auto) 0.0 PT 13.4 H INR 1.2 H VBG pH 7.33 VBG pCO2 53 VBG pO2 45 VBG HCO3 28 H VBG O2 Saturation 61.0 VBG Base Excess 1.8 Anion Gap 17 Estim Creat Clear Calc 39.6 Estimated GFR 51 Random Glucose 108 Lactic Acid 1.1 Calcium 9.5 Magnesium 2.5 Total Bilirubin 0.4 Direct Bilirubin 0.2 AST 22 ALT 13 Alkaline Phosphatase 88 Troponin I High Sens 565.0 H* C-Reactive Protein 30.64 H B-Natriuretic Peptide 696 H Total Protein 7.9 Albumin 3.8 Lipase 35 Procalcitonin 0.48 Urine Color Urine Appearance Urine pH Ur Specific [place] Urine Protein Urine Glucose (UA) Urine Ketones Urine Blood Urine Nitrite Ur Leukocyte Esterase Urine RBC Urine WBC Ur Squamous Epith Cells Urine Bacteria Hyaline Casts Influenza Type A (PCR) NEGATIVE Influenza Type B (PCR) NEGATIVE RSV RNA Qual (PCR) NEGATIVE SARS-CoV-2 RNA (RT-PCR) NEGATIVE 08/10/24 08/10/24 17:38 21:05 MCV MCH MCHC RDW Plt Count MPV Immature Gran % (Auto) Neut % (Auto) Lymph % (Auto) [place] % (Auto) Eos % (Auto) Baso % (Auto) Lymph # (Auto) [place] # (Auto) Eos # (Auto) Baso # (Auto) Abs Immat Gran (auto) Absolute Neuts (auto) Absolute Nucleated RBC Nucleated RBC % (auto) PT INR VBG pH VBG pCO2 VBG pO2 VBG HCO3 VBG O2 Saturation VBG Base Excess Anion Gap Estim Creat Clear Calc Estimated GFR Random Glucose Lactic Acid Calcium Magnesium Total Bilirubin Direct Bilirubin AST ALT Alkaline Phosphatase Troponin I High Sens 542.5 H* C-Reactive Protein B-Natriuretic Peptide Total Protein Albumin Lipase Procalcitonin Urine Color Yellow Urine Appearance Cloudy Urine pH 5.5 Ur Specific [place] >= 1.030 H Urine Protein 300 (3+) H Urine Glucose (UA) Negative Urine Ketones Negative Urine Blood Large (3+) H Urine Nitrite Negative Ur Leukocyte Esterase Moderate (2+) H Urine RBC >20 H Urine WBC >50 H Ur Squamous Epith Cells 0-2 Urine Bacteria 2+ Hyaline Casts 11-20 Influenza Type A (PCR) Influenza Type B (PCR) RSV RNA Qual (PCR) SARS-CoV-2 RNA (RT-PCR) Imaging Radiologist's Impressions: Impressions Chest CTA 08/10/24 15:13 IMPRESSION: 1. No evidence of pulmonary embolism. 2. Extensive emphysema. Extensive subcentimeter irregular opacities scattered predominantly throughout the dependent lungs, medial aspect of the left upper lobe, and anterolateral aspect of the right upper lobe (this distribution has changed compared to exam from 2021). Confluent consolidation in the central region of the right upper lobe. Findings are suggestive of an active infectious/inflammatory process. 3. Moderate peribronchial wall thickening throughout the lungs. Moderately prominent mediastinal lymph nodes. VTE: negative. Electronically signed by: Enmanuel Hebert DO 08/10/2024 09:50 PM EDT RP Assessment and Plan (1) Acute hypoxemic respiratory failure: Status: Acute (2) Pneumonia: Status: Acute Plan This is a 67-year-old female with pertinent history of essential hypertension, colorectal cancer with pulmonary metastasis status post colectomy, chemotherapy and radiation who presents to the emergency department with complaints of shortness of breath. #. Acute hypoxemic respiratory failure and Sepsis due to: #. Community-acquired pneumonia -will admit patient and initiate empiric IV antibiotics for cap coverage. Resuscitated with IV crystalloids in the ER. Lactic acid and blood cultures obtained. Ordered sputum Gram stain and culture. -currently requiring 5 L supplemental oxygen, monitor and wean as tolerated. Maintain oxygen saturation greater than 88% #. Acute mild exacerbation of emphysema -due to above. Scheduled and p.r.n. DuoNebs. Prednisone 40 mg p.o. x5 #. Colorectal cancer with pulmonary metastasis -now with recurrence. Outpatient follow-up #. Elevated troponin -likely type 2 in the setting of hypoxia and sepsis. Patient without chest pain. Ordered 1 dose of therapeutic Lovenox and aspirin. Repeat troponin in a.m. and Cardiology consult #. Elevated BNP -could be baseline in elderly female. Patient without pulmonary edema/pedal edema/pleural effusion or orthopnea or PND. Clinically not volume overloaded, defer diuresis #. Hypertension -on amlodipine #. Asymptomatic bacteriuria Med rec pending DVT prophylaxis: Lovenox Cardiac diet Full code Admit as inpatient and will require two night minimum hospital stay for IV antibiotics and supplemental oxygen (as above), which is not possible in a lesser acute setting. Quality Stroke Does the patient have a stroke diagnosis?: No VTE Prior VTE?: No VTE Risk Level:: Medical - moderate - high VTE Device Contraindication: Treatment Not Indicated VTE Drug Contraindication: N/A - Med Ordered
--- NOTE | 2024-08-10 22:13 | PHA.MEDREC ---
Addendum entered by Ramon Good RPh 08/10/24 22:13: Med rec reviewed Original Note: Pharmacy Consult ? Medication Reconciliation Pharmacy has completed the medication reconciliation.
[2024-08-10] MEDS: cefTRIAXone sodium 1 GM in 0.9 % Sodium Chloride 50 ML IV (23:56)
[2024-08-11] VITALS (11 sets, daily range): BP systolic 111–128; BP diastolic 55–67; PULSE 86–100; RESP 18–30; TEMP 36.2–36.8; O2SAT 92–97
--- NOTE | 2024-08-11 | ECG_ITS ---
Test Reason : ADMIT Blood Pressure : / mmHG Vent. Rate : 100 BPM Atrial Rate : 100 BPM P-R Int : 150 ms QRS Dur : 106 ms QT Int : 364 ms P-R-T Axes : 026 050 -40 degrees QTc Int : 469 ms Sinus rhythm with Premature atrial complexes with short burst Incomplete right bundle branch block T wave abnormality, consider anterolateral ischemia Abnormal ECG When compared with ECG of 10-AUG-2024 15:53, No significant change was found Referred By: Ryan Lewis Electronically Signed By:SHIVAM NEUMANN MD
[2024-08-11] MEDS: Aspirin Enteric Coated 325 MG TABLET.DR PO (00:46)
[2024-08-11] MEDS: Azithromycin 500 MG in 0.9 % Sodium Chloride 250 ML 125 MG IV (00:48)
[2024-08-11] MEDS: Enoxaparin Sodium 60 MG/0.6 ML SYRINGE SUBCUT (00:48)
--- NOTE | 2024-08-11 04:44 | PC.NURSE ---
desat to 85% on 5L NC. pt easily arousable denies cp/sob. noted to be tachypneic, slight expiratory wheezing. upon awaking pt is 95% on 5L NC. RT made aware. pt denies discomfort/concerns at this time. afebrile, vss. call ibanez within reach.
[2024-08-11] MEDS: Albuterol/Iprat 2.5/0.5MG 3 ML AMPUL.NEB INHALE ×5 (05:04→20:34)
[2024-08-11 05:10] LABS: MANUAL DIFF FLAG NO
[2024-08-11 05:13] LABS: Basophils Percent Auto 0.3 % (0-2); Eosinophils Percent Auto 0.2 % (0-4); Hematocrit 27.4 % (37.0-47.0); Hemoglobin 8.7 g/dl (12.0-16.0); Imm Gran Abs Auto 0.49 X10*3/uL (0.00-0.03); Imm Gran Pct Auto 4.4 % (0.0-0.4); Lymphocytes Absolute Auto 0.5 X10*3/uL (1.2-4.9); Lymphocytes Percent Auto 4.6 % (20-40); Mean Corpuscular HGB Conc 31.8 g/dl (31.0-35.0); Mean Corpuscular Hemoglobin 26.7 pg (27.0-33.0); Mean Platelet Volume 9.2 fL (9.4-12.3); Monocytes Absolute Auto 0.6 X10*3/uL (0.1-1.2); Monocytes Percent Auto 5.4 % (2-11); NRBC Pct Auto 0.2 /100WBC (0.0-0.2); Neutrophils Absolute Auto 9.4 x10*3/uL (2.0-8.3); Neutrophils Percent Auto 85.1 % (45-73); Platelet Count 292 X10*3/uL (160-400); Red Blood Count 3.26 X10*6/uL (4.20-5.50)
[2024-08-11 05:28] LABS: Anion Gap 15 (12-20); Blood Urea Nitrogen 37 mg/dL (9-16); Calcium 8.5 mg/dL (8.4-10.2); Carbon Dioxide 24 mmol/L (22-29); Chloride 104 mmol/L (96-108); Creatinine Clr Calc Pharmacy 48.2; Estimated Glomerular Filt Rate > 60; Glucose Random 122 mg/dL (60-115); Potassium 4.4 mmol/L (3.3-5.1); Sodium 139 mmol/L (135-145)
[2024-08-11 05:51] LABS: Troponin-I High Sensitivity 443.9 ng/L (<3.5-17.0)
--- NOTE | 2024-08-11 07:27 | P.PNIM_ITS ---
Subjective Subjective Date of Service: 08/11/24 Interval History: f/u on acute hypoxic resp failure d/t copd exa, pna, nstemia and ? heart failure feels better, no sob, no chest pain, Physical Exam 2 Vital Signs: Vital Signs: Last Vital Signs Temp 97.6 F 08/11/24 04:43 Pulse 89 08/11/24 05:05 Resp 30 H 08/11/24 05:05 BP 118/58 L 08/11/24 04:43 Pulse Ox 93 08/11/24 04:43 O2 Del Method Nasal Cannula 08/11/24 04:43 O2 Flow Rate 5 08/11/24 04:43 BMI result Body Mass Index 22.9 General: AO X 3, no acute distress Resp: CTA bilateral CVS: S1,S2,RRR GI: +BS, NT, no distention Skin: No rash Neuro: motor grossly intact Psych: appropriate affect Objective Data Active Medications Acetaminophen (Acetaminophen 325 Mg Tablet) 650 mg PO Q6H PRN PRN Reason: Pain, Mild (Pain Scale 1-3), fever or headache Albuterol/Ipratropium (Albuterol/Iprat 2.5/0.5mg 3 Ml Ampul.Neb) 3 ml INHALE RQ4H WHILE AWAKE NIEVES Albuterol/Ipratropium (Albuterol/Iprat 2.5/0.5mg 3 Ml Ampul.Neb) 3 ml INHALE Q4H PRN PRN Reason: Wheezing Last Admin: 08/11/24 05:04 Dose: 3 ml Documented By: SCOTT Calcium Carbonate (Calcium Carbonate 750 Mg Tab.Chew) 750 mg PO Q4H PRN PRN Reason: Heartburn Enoxaparin Sodium (Enoxaparin Sodium 40 Mg/0.4 Ml Syringe) 40 mg SUBCUT Q24H [facility] Ceftriaxone Sodium 1 gm/ (Sodium Chloride) 50 mls @ 100 mls/hr IV Q24H [facility] Last Infusion: 08/11/24 00:30 Dose: Infused Documented By: NIK Azithromycin 500 mg/ Sodium (Chloride) 250 mls @ 125 mls/hr IV Q24H [facility] Last Infusion: 08/11/24 02:48 Dose: Infused Documented By: NIK Magnesium Hydroxide (Milk Of Magnesia 30 Ml Oral.Susp) 30 ml PO DAILY PRN PRN Reason: Constipation Melatonin (Melatonin 3 Mg Tablet) 6 mg PO BEDTIME PRN PRN Reason: Insomnia Ondansetron HCl (Ondansetron Hcl 4 Mg/2 Ml Vial) 4 mg IVPUSH Q8H PRN PRN Reason: Nausea and Vomiting Prednisone (Prednisone 20 Mg Tablet) 40 mg PO DAILY NIEVES Sodium Chloride (0.9 % Sodium Chloride Flush 3 Ml Syringe) 3 ml IVFLUSH QSHIFT NIEVES Last Admin: 08/11/24 01:02 Dose: Not Given Documented By: NIK Non-Admin Reason: IV Running Labs 08/11/24 04:13 08/11/24 04:13 Labs: Laboratory Results - last 24 hr 08/10/24 08/10/24 08/10/24 15:42 15:43 15:50 MCV 83.2 MCH 26.6 L MCHC 32.0 RDW 14.6 Plt Count 337 MPV 9.1 L Immature Gran % (Auto) 3.0 H Neut % (Auto) 87.8 H Lymph % (Auto) 4.2 L [place] % (Auto) 4.2 Eos % (Auto) 0.0 Baso % (Auto) 0.8 Lymph # (Auto) 0.6 L [place] # (Auto) 0.6 Eos # (Auto) 0.0 Baso # (Auto) 0.1 Abs Immat Gran (auto) 0.42 H Absolute Neuts (auto) 12.2 H Absolute Nucleated RBC 0.000 Nucleated RBC % (auto) 0.0 PT 13.4 H INR 1.2 H VBG pH 7.33 VBG pCO2 53 VBG pO2 45 VBG HCO3 28 H VBG O2 Saturation 61.0 VBG Base Excess 1.8 Anion Gap 17 Estim Creat Clear Calc 39.6 Estimated GFR 51 Random Glucose 108 Lactic Acid 1.1 Calcium 9.5 Magnesium 2.5 Total Bilirubin 0.4 Direct Bilirubin 0.2 AST 22 ALT 13 Alkaline Phosphatase 88 Troponin I High Sens 565.0 H* C-Reactive Protein 30.64 H B-Natriuretic Peptide 696 H Total Protein 7.9 Albumin 3.8 Lipase 35 Procalcitonin 0.48 Urine Color Urine Appearance Urine pH Ur Specific [place] Urine Protein Urine Glucose (UA) Urine Ketones Urine Blood Urine Nitrite Ur Leukocyte Esterase Urine RBC Urine WBC Ur Squamous Epith Cells Urine Bacteria Hyaline Casts Influenza Type A (PCR) NEGATIVE Influenza Type B (PCR) NEGATIVE RSV RNA Qual (PCR) NEGATIVE SARS-CoV-2 RNA (RT-PCR) NEGATIVE 08/10/24 08/10/24 08/11/24 17:38 21:05 04:13 MCV 84.0 MCH 26.7 L MCHC 31.8 RDW 15.0 Plt Count 292 MPV 9.2 L Immature Gran % (Auto) 4.4 H Neut % (Auto) 85.1 H Lymph % (Auto) 4.6 L [place] % (Auto) 5.4 Eos % (Auto) 0.2 Baso % (Auto) 0.3 Lymph # (Auto) 0.5 L [place] # (Auto) 0.6 Eos # (Auto) 0.0 Baso # (Auto) 0.0 Abs Immat Gran (auto) 0.49 H Absolute Neuts (auto) 9.4 H Absolute Nucleated RBC 0.020 H Nucleated RBC % (auto) 0.2 PT INR VBG pH VBG pCO2 VBG pO2 VBG HCO3 VBG O2 Saturation VBG Base Excess Anion Gap 15 Estim Creat Clear Calc 48.2 Estimated GFR > 60 Random Glucose 122 H Lactic Acid Calcium 8.5 D Magnesium Total Bilirubin Direct Bilirubin AST ALT Alkaline Phosphatase Troponin I High Sens 542.5 H* 443.9 H* C-Reactive Protein B-Natriuretic Peptide Total Protein Albumin Lipase Procalcitonin Urine Color Yellow Urine Appearance Cloudy Urine pH 5.5 Ur Specific [place] >= 1.030 H Urine Protein 300 (3+) H Urine Glucose (UA) Negative Urine Ketones Negative Urine Blood Large (3+) H Urine Nitrite Negative Ur Leukocyte Esterase Moderate (2+) H Urine RBC >20 H Urine WBC >50 H Ur Squamous Epith Cells 0-2 Urine Bacteria 2+ Hyaline Casts 11-20 Influenza Type A (PCR) Influenza Type B (PCR) RSV RNA Qual (PCR) SARS-CoV-2 RNA (RT-PCR) Assessment and Plan (1) Acute hypoxemic respiratory failure: Status: Acute (2) Pneumonia: Status: Acute (3) NSTEMI (non-ST elevated myocardial infarction): Status: Acute Plan 67/F w/ HTN, colon cancer 4 yrs ago s/p resection and chemo and now with recurrnet colorectal cancer with pulmonary metastasis, status post-colectomy in May, on chemotherapy in [place], last chemo 2 weeks ago, presenting with dyspnea and found to have sepsis due to pneumonia, COPD exacerbation resulting in acute hypoxic respiratory failure, and elevated troponin I consistent with NSTEMI. Acute hypoxic respiratory failure due to pneumonia, COPD exacerbation, heart failure, and underlying pulmonary metastasis - Treat underlying conditions - O2 to maintain saturation between 88-92% Sepsis due to right upper lobe pneumonia (sepsis resolved) - Continue Ceftriaxone and Azithromycin started 08/10 - Follow culture results Acute mild exacerbation of emphysema - Related to above - Scheduled bronchodilators and PRN DuoNebs - Prednisone 40 mg x 5 days Elevated troponin, NSTEMI vs. Type 2 OK from sepsis and respiratory failure - Treated with Lovenox (1 dose) and ASA - Cardiology consult - Echocardiogram to assess wall motion - Repeat troponin and ECG recurrent Colorectal cancer with pulmonary metastasis - Now with recurrence - Outpatient follow-up recommended Elevated BNP without signs of heart failure - No pulmonary congestion or leg edema, clinically euvolemic - Hold diuretics - Echo as noted above Hypertension - On Amlodipine Asymptomatic bacteriuria - Already on antibiotics as noted above DVT prophylaxis - Lovenox Diet - Cardiac diet -Code status - Full code need for inpt: management of acute resp failure with hypoxia, PNA Quality Stroke Does the patient have a stroke diagnosis?: No VTE Prior VTE?: No VTE Risk Level:: Medical - moderate - high VTE Device Contraindication: Treatment Not Indicated VTE Drug Contraindication: N/A - Med Ordered
--- NOTE | 2024-08-11 08:01 | CA_ITS ---
Transthoracic Echocardiogram Patient (Last, First, Middle): Davina Monroy Lee Gender: Female Date of : 1955 Age: 69 Procedure Date: 08/11/2024 Procedure Type: Transthoracic Echocardiogram Location: ER Height: 157.48 cm Weight: 56.7 kg BSA: 1.57 m2 Heart Rate: 89 bpm BP: 130 / 64 mmHg Phone Technician: VIVIAN Referring MD: Ryan Lewis MD Solution Make Up Operator: Adolfo Sow MD Symptoms: NSTEMI Study Quality: Adequate ECG Rhythm: Sinus Conclusions: - 1. Normal LV ejection fraction at 60-65% with impaired relaxation filling pattern 2. Dilated right ventricle with preserved contractility although suggestive of maybe cor pulmonale 3. Normal cardiac valvular Dopplers 4. Normal RV systolic pressure with mildly elevated right atrial pressures 5. No gross pericardial effusion Findings Left Ventricle Normal left ventricular size, thickness, and systolic function. The visually estimated ejection fraction is between 60-65%. There is a flattened septum in systole consistent with right ventricular pressure overload. Spectral Doppler is indicative of an impaired relaxation filling pattern. E/E prime ratio is between 8 and 15 consistent with indeterminate filling pressures. Right Ventricle Moderately increased right ventricular cavity size. There is normal right ventricular systolic function. Atria The left atrium is normal in size. Interatrial shunt cannot be excluded. The right atrium is normal in size. Aortic Valve There is mild calcification of the aortic valve. There is no aortic valve stenosis. There is no aortic valve regurgitation. Mitral Valve Normal mitral valve structure and function. There is trace mitral valve regurgitation. There is no mitral valve stenosis. Pulmonic Valve The pulmonic valve was not well visualized. Tricuspid Valve Likely normal tricuspid valve structure and function. There is mild tricuspid valve regurgitation. The right ventricular systolic pressure is normal. The right ventricular systolic pressure is 29 mmHg. Mildly elevated right atrial pressure. There is no evidence of pulmonary hypertension. Great Vessels All visible segments of the aorta are normal in size. The pulmonary artery was not well visualized. There is no dilatation of the ascending aorta measuring 3.20 cm. Venous The inferior vena cava is mildly dilated. Pericardium/Pleural There is no evidence of pericardial effusion. Prior Study Comparison No prior study available for comparison. Measurements 2D Linear Measurements IVSd: 0.83 0.6-0.9/0.6-1.0 cm LVIDd: 4.10 3.9-5.3/4.2-5.9 cm LVIDd Index: 2.61 2.4-3.2/2.2-3.1 cm/m2 LVIDs: 2.68 2.0-3.6 cm LVPWd: 0.82 0.7-1.1 cm LA Diam: 2.90 2.7-3.8/3.0-4.0 cm LAIDs Index: 1.85 1.5-2.3 cm/m2 LV Mass: 126.66 67-162/88-224 g LV Mass Index: 80.67 43-95/49-115 g/m2 LVOT Diam: 1.90 3.0+(-)1.3 cm 2D Systolic Function EF 4C: 69.70 >55% EF 2C: 57.20 >55% EF BiP: 64.10 >55% Mitral Valve MV Pk E: 0.73 MV PK A: 0.84 MV Decel Time: 215.00 E/A: 0.90 E'Lateral: 8.16 E'Medial: 6.42 E/E' Med: 11.30 E/E' Lat: 8.90 PHT: 63.00 MVA PHT: 3.49 Decel [place]: 3.39 Aortic Valve AoV Pk Nate: 1.92 AoV Pk Grad: 15.00 JOSIAS: 2.31 LVOT LVOT Pk Nate: 1.51 LVOT Mn Nate: 0.92 LVOT VTI: 0.24 LVOT Pk Grad: 9.00 LVOT Mn Grad: 5.00 LVOT Diam: 1.90 LVOT Area: 2.84 Diastolic Function MV Pk E: 0.73 MV Pk A: 0.84 E/A: 0.90 E'Medial: 6.42 E/E' Med: 11.30 E' Laterial: 8.16 E/E' Lat: 8.90 Right Ventricle TAPSE (mm): 20.70 TVS' Nate: 17.30 Tricuspid Valve TR Pk Nate: 2.31 TR Pk Grad: 21.00 RA Press: 8.00 RVSP: 29.00 Great Vessels Aorta Sinus of Valsalva: 3.00 2.0-3.5 cm Ao Asc: 3.20 2.1-3.4 cm Pulmonary Veins Pulm Vein S/D 2.00 Pulmonary Valve PV Pk Nate: 0.84 Peak PV Grad: 3.00 Updated in Other Vendor System with Status of Final Adolfo Sow MD electronically signed on 08/11/2024 10:35:34 AM with status of Final
[2024-08-11 08:46] LABS: Cholesterol 91 mg/dL (<200); HDL Cholesterol 20 mg/dL (>40); LDL Cholesterol Calculated 51 mg/dL (<100); Triglycerides 103 mg/dL (<150)
[2024-08-11] MEDS: predniSONE 20 MG TABLET 40 MG PO (09:42)
[2024-08-11] MEDS: Aspirin Enteric Coated 81 MG TABLET.DR PO (09:42)
[2024-08-11] MEDS: amLODIPine Besylate 5 MG TABLET PO (09:43)
[2024-08-11] MEDS: 0.9 % Sodium Chloride Flush 3 ML SYRINGE IVFLUSH ×3 (09:47→23:25)
[2024-08-11 10:44] LABS: Troponin-I High Sensitivity 261.3 ng/L (<3.5-17.0)
--- NOTE | 2024-08-11 10:52 | PM.CNCAR ---
History of Present Illness History of Present Illness Date of Service: 08/11/24 Requesting physician: Ryan Lewis Consult reason: troponin elevation Chief complaint: Dyspnea Narrative: I was consulted to see Davina in cardiology consultation today for abnormal troponins and BNP. She is a 67-year-old female with prior history of hypertension, colorectal cancer status post colectomy and chemotherapy and radiation, subsequently 2 years later diagnose with pulmonary metastases and was treated with radiation therapy with COPD underlying although currently not seeing any family practice medical doctor. Patient currently getting chemotherapy for her recurrent colon cancer after recent surgery. He said over the last 10 days she has been gradually getting more and more short of breath. She had not seek emergency care, had productive cough with runny nose and change him phlegm color. Due to persistent significant shortness of breath she came to the emergency room. In the emergency room she was noted to be significantly hypoxic with increased workup breathing. She was admitted. Workup suggested elevated troponins and BNP. She had no chest pain. No recent leg edema, orthopnea, PND. EKG showed normal sinus rhythm with PACs with right bundle-branch block with T-wave inversion inferolateral leads. Troponins are downtrending at this point time. She says she feels a lot better compared to when she came in. Echocardiogram diabetic change shows normal LV ejection fraction without any significant wall motion abnormality dilated RV suggestive of RV strain. Review of Systems Constitutional: Constitutional: Reports fatigue, Reports fever(s) and Reports weakness Eyes: Eyes: Reports no additional eye complaints Cardiovascular: Cardiovascular: Denies chest pain, Denies syncope, Denies leg edema, Denies lightheadedness, Denies palpitations, Reports dyspnea and Reports dyspnea on exertion Respiratory: Respiratory: Reports change in phlegm color, Reports cough, Reports excessive phlegm production, Reports dyspnea and Reports dyspnea on exertion Gastrointestinal: Gastrointestinal: Reports no additional gastrointestinal complaints Genitourinary: Genitourinary: Reports no additional female genitourinary complaints Musculoskeletal: Musculoskeletal: Reports no additional musculoskeletal complaints Integumentary/Breasts: Skin/Breast: Reports system reviewed and no additional complaints, except as docu Neurologic: Reports system reviewed and no additional complaints, except as documented, Denies syncope and Reports weakness Endocrine: Endocrine: Reports no additional endocrine complaints, Reports fatigue and Denies palpitations Allergic/Immunologic: Allergic/Immunologic: Reports no additional allergic/immunologic complaints PMFSH Past Medical History Medical History Hypertension Ureteral stent present Lung cancer Cancer of colon with rectum Surgical History Surgical History Hx of appendectomy Hx of tonsillectomy Social History Social History Household Members: Spouse Housing: House Do you presently have visiting nurse or other home services: No Alcohol intake: never Patient Tobacco Use Status: Former Tobacco user Tobacco use type: Cigarette Smoked in Last 30 Days: No Second Hand Smoke Exposure: No Use of substances other than those prescribed or required for medical reasons: No Advance Directives: No Advance Directives Information Provided: Yes service: No Current occupational status: disabled Meds Allergies Allergy/AdvReac Type Severity Reaction Status Date / Time infliximab [Remicade] AdvReac Unknown arthralgia Verified 08/10/24 15:07 salacyclic acid wart remover Allergy Unknown hives, Uncoded 08/10/24 15:07 swollen joints Asacol AdvReac Unknown GI upset Uncoded 08/10/24 15:07 Active Medications: Current Medications Acetaminophen (Acetaminophen 325 Mg Tablet) 650 mg PO Q6H PRN PRN Reason: Pain, Mild (Pain Scale 1-3), fever or headache Albuterol/Ipratropium (Albuterol/Iprat 2.5/0.5mg 3 Ml Ampul.Neb) 3 ml INHALE RQ4H WHILE AWAKE [facility] Last Admin: 08/11/24 07:56 Dose: 3 ml Albuterol/Ipratropium (Albuterol/Iprat 2.5/0.5mg 3 Ml Ampul.Neb) 3 ml INHALE Q4H PRN PRN Reason: Wheezing Last Admin: 08/11/24 05:04 Dose: 3 ml Amlodipine Besylate (Amlodipine Besylate 5 Mg Tablet) 5 mg PO DAILY [facility]; Protocol Last Admin: 08/11/24 09:43 Dose: 5 mg Aspirin (Aspirin Enteric Coated 81 Mg Tablet.Dr) 81 mg PO DAILY [facility] Last Admin: 08/11/24 09:42 Dose: 81 mg Atorvastatin Calcium (Atorvastatin Calcium 20 Mg Tablet) 20 mg PO DAILY [facility] Calcium Carbonate (Calcium Carbonate 750 Mg Tab.Chew) 750 mg PO Q4H PRN PRN Reason: Heartburn Enoxaparin Sodium (Enoxaparin Sodium 40 Mg/0.4 Ml Syringe) 40 mg SUBCUT Q24H [facility] Ceftriaxone Sodium 1 gm/ (Sodium Chloride) 50 mls @ 100 mls/hr IV Q24H [facility] Last Infusion: 08/11/24 00:30 Dose: Infused Azithromycin 500 mg/ Sodium (Chloride) 250 mls @ 125 mls/hr IV Q24H [facility] Last Infusion: 08/11/24 02:48 Dose: Infused Magnesium Hydroxide (Milk Of Magnesia 30 Ml Oral.Susp) 30 ml PO DAILY PRN PRN Reason: Constipation Melatonin (Melatonin 3 Mg Tablet) 6 mg PO BEDTIME PRN PRN Reason: Insomnia Ondansetron HCl (Ondansetron Hcl 4 Mg/2 Ml Vial) 4 mg IVPUSH Q8H PRN PRN Reason: Nausea and Vomiting Prednisone (Prednisone 20 Mg Tablet) 40 mg PO DAILY [facility] Last Admin: 08/11/24 09:42 Dose: 40 mg Sodium Chloride (0.9 % Sodium Chloride Flush 3 Ml Syringe) 3 ml IVFLUSH QSHIFT [facility] Last Admin: 08/11/24 09:47 Dose: 3 ml Home Medications ?Medication ?Instructions ?Recorded ?Confirmed ?Last Taken ?Type amlodipine 5 mg tablet 1 tab PO DAILY 09/30/22 08/10/24 08/10/24 History Physical Exam Vital Signs: Vital Signs: Last Vital Signs Temp 98.2 F 08/11/24 09:49 Pulse 96 08/11/24 09:49 Resp 25 H 08/11/24 09:49 BP 118/67 08/11/24 09:49 Pulse Ox 93 08/11/24 09:49 O2 Del Method Nasal Cannula 08/11/24 09:49 O2 Flow Rate 5 08/11/24 09:49 BMI result Body Mass Index 22.9 Const: General: cooperative, alert, awake, in distress moderate and respiratory and ill appearing Nutritional Appearance: thin Orientation/consciousness: patient oriented x3 HEENT: Head: Yes normocephalic and Yes atraumatic Neck: Neck: Yes trachea midline, Yes supple and Yes JVD Resp: Effort & Inspection: paradoxical thoraco-abdominal movements and respiratory distress Auscultation: crackles, wheezes and diminished lung sounds Cardio: Jugular venous distension: JVD Rate: regular rate Rhythm: abnormal rhythm with ectopic beats Heart sounds: S1 normal heart sound present, S2 normal heart sound present, no click, no gallops, no murmurs and no rubs GI: Auscultation: normal bowel sounds Skin: General skin exam: no rashes or lesions noted Neuro: General: patient oriented x3 and no focal motor deficits Extrem: General: Yes no clubbing, cyanosis or edema Objective Labs and Meds 08/11/24 04:13 08/11/24 04:13 Lab results: Laboratory Results - last 24 hr 08/10/24 08/10/24 08/10/24 15:42 15:43 15:50 WBC 13.9 H RBC 3.98 L Hgb 10.6 L Hct 33.1 L MCV 83.2 MCH 26.6 L MCHC 32.0 RDW 14.6 Plt Count 337 MPV 9.1 L Immature Gran % (Auto) 3.0 H Neut % (Auto) 87.8 H Lymph % (Auto) 4.2 L [place] % (Auto) 4.2 Eos % (Auto) 0.0 Baso % (Auto) 0.8 Lymph # (Auto) 0.6 L [place] # (Auto) 0.6 Eos # (Auto) 0.0 Baso # (Auto) 0.1 Abs Immat Gran (auto) 0.42 H Absolute Neuts (auto) 12.2 H Absolute Nucleated RBC 0.000 Nucleated RBC % (auto) 0.0 PT 13.4 H INR 1.2 H VBG pH 7.33 VBG pCO2 53 VBG pO2 45 VBG HCO3 28 H VBG O2 Saturation 61.0 VBG Base Excess 1.8 Sodium 137 Potassium 4.7 Chloride 98 Carbon Dioxide 27 Anion Gap 17 BUN 44 H Creatinine 1.06 Estim Creat Clear Calc 39.6 Estimated GFR 51 Random Glucose 108 Lactic Acid 1.1 Calcium 9.5 Magnesium 2.5 Total Bilirubin 0.4 Direct Bilirubin 0.2 AST 22 ALT 13 Alkaline Phosphatase 88 Troponin I High Sens 565.0 H* C-Reactive Protein 30.64 H B-Natriuretic Peptide 696 H Total Protein 7.9 Albumin 3.8 Triglycerides Cholesterol LDL Cholesterol, Calc HDL Cholesterol Lipase 35 Procalcitonin 0.48 Urine Color Urine Appearance Urine pH Ur Specific [place] Urine Protein Urine Glucose (UA) Urine Ketones Urine Blood Urine Nitrite Ur Leukocyte Esterase Urine RBC Urine WBC Ur Squamous Epith Cells Urine Bacteria Hyaline Casts Influenza Type A (PCR) NEGATIVE Influenza Type B (PCR) NEGATIVE RSV RNA Qual (PCR) NEGATIVE SARS-CoV-2 RNA (RT-PCR) NEGATIVE 08/10/24 08/10/24 08/11/24 17:38 21:05 04:13 WBC 11.0 H RBC 3.26 L Hgb 8.7 L Hct 27.4 L MCV 84.0 MCH 26.7 L MCHC 31.8 RDW 15.0 Plt Count 292 MPV 9.2 L Immature Gran % (Auto) 4.4 H Neut % (Auto) 85.1 H Lymph % (Auto) 4.6 L [place] % (Auto) 5.4 Eos % (Auto) 0.2 Baso % (Auto) 0.3 Lymph # (Auto) 0.5 L [place] # (Auto) 0.6 Eos # (Auto) 0.0 Baso # (Auto) 0.0 Abs Immat Gran (auto) 0.49 H Absolute Neuts (auto) 9.4 H Absolute Nucleated RBC 0.020 H Nucleated RBC % (auto) 0.2 PT INR VBG pH VBG pCO2 VBG pO2 VBG HCO3 VBG O2 Saturation VBG Base Excess Sodium 139 Potassium 4.4 Chloride 104 Carbon Dioxide 24 Anion Gap 15 BUN 37 H Creatinine 0.87 Estim Creat Clear Calc 48.2 Estimated GFR > 60 Random Glucose 122 H Lactic Acid Calcium 8.5 D Magnesium Total Bilirubin Direct Bilirubin AST ALT Alkaline Phosphatase Troponin I High Sens 542.5 H* 443.9 H* C-Reactive Protein B-Natriuretic Peptide Total Protein Albumin Triglycerides 103 Cholesterol 91 LDL Cholesterol, Calc 51 HDL Cholesterol 20 L Lipase Procalcitonin Urine Color Yellow Urine Appearance Cloudy Urine pH 5.5 Ur Specific [place] >= 1.030 H Urine Protein 300 (3+) H Urine Glucose (UA) Negative Urine Ketones Negative Urine Blood Large (3+) H Urine Nitrite Negative Ur Leukocyte Esterase Moderate (2+) H Urine RBC >20 H Urine WBC >50 H Ur Squamous Epith Cells 0-2 Urine Bacteria 2+ Hyaline Casts 11-20 Influenza Type A (PCR) Influenza Type B (PCR) RSV RNA Qual (PCR) SARS-CoV-2 RNA (RT-PCR) 08/11/24 10:11 WBC RBC Hgb Hct MCV MCH MCHC RDW Plt Count MPV Immature Gran % (Auto) Neut % (Auto) Lymph % (Auto) [place] % (Auto) Eos % (Auto) Baso % (Auto) Lymph # (Auto) [place] # (Auto) Eos # (Auto) Baso # (Auto) Abs Immat Gran (auto) Absolute Neuts (auto) Absolute Nucleated RBC Nucleated RBC % (auto) PT INR VBG pH VBG pCO2 VBG pO2 VBG HCO3 VBG O2 Saturation VBG Base Excess Sodium Potassium Chloride Carbon Dioxide Anion Gap BUN Creatinine Estim Creat Clear Calc Estimated GFR Random Glucose Lactic Acid Calcium Magnesium Total Bilirubin Direct Bilirubin AST ALT Alkaline Phosphatase Troponin I High Sens 261.3 H* C-Reactive Protein B-Natriuretic Peptide Total Protein Albumin Triglycerides Cholesterol LDL Cholesterol, Calc HDL Cholesterol Lipase Procalcitonin Urine Color Urine Appearance Urine pH Ur Specific [place] Urine Protein Urine Glucose (UA) Urine Ketones Urine Blood Urine Nitrite Ur Leukocyte Esterase Urine RBC Urine WBC Ur Squamous Epith Cells Urine Bacteria Hyaline Casts Influenza Type A (PCR) Influenza Type B (PCR) RSV RNA Qual (PCR) SARS-CoV-2 RNA (RT-PCR) Imaging Radiologist's impression: Impressions Chest CTA 08/10/24 15:13 IMPRESSION: 1. No evidence of pulmonary embolism. 2. Extensive emphysema. Extensive subcentimeter irregular opacities scattered predominantly throughout the dependent lungs, medial aspect of the left upper lobe, and anterolateral aspect of the right upper lobe (this distribution has changed compared to exam from 2021). Confluent consolidation in the central region of the right upper lobe. Findings are suggestive of an active infectious/inflammatory process. 3. Moderate peribronchial wall thickening throughout the lungs. Moderately prominent mediastinal lymph nodes. VTE: negative. Electronically signed by: Enmanuel Hebert DO 08/10/2024 09:50 PM EDT Assessment and Plan (1) Acute hypoxemic respiratory failure: Status: Acute Acute hypoxemic respiratory failure in this elderly lady with significant pulmonary parenchymal disease with severe emphysema as well as radiation treatment in the past which probably limits her oxygen diffusion capacity coming with worsening shortness of breath consistent with COPD exacerbation with findings suggestive of bronchospastic airway disease with much improved symptoms since presentation after getting oxygen therapy, still requiring high level of oxygen developed elevated cardiac biomarkers most likely due to acute RV strain due to cor pulmonale from hypoxic respiratory failure with no evidence of wall motion abnormality on echocardiogram with normal LV ejection fraction. Management would be to continue to treat her hypoxemic respiratory failure and underlying pulmonary parenchymal disease aggressively. I will prescribe her aspirin and statin therapy. Unlikely this represents underlying myocardial ischemia due to coronary artery disease. There is no evidence of pulmonary embolism by CTA Will sign of the case. Thank you for allowing me to partake in his care Procedures Date of Service Date of Service: 08/11/24
[2024-08-11] MEDS: Atorvastatin Calcium 20 MG TABLET PO (11:29)
--- NOTE | 2024-08-11 11:40 | MHC.CM.PN ---
PT LIVES WITH IS INDEPENDENT HAS OWN RIDE HOME DC PLAN HOME NO SERVIES
[2024-08-11] MEDS: Enoxaparin Sodium 40 MG/0.4 ML SYRINGE SUBCUT (18:06)
[2024-08-11] MEDS: cefTRIAXone sodium 1 GM in 0.9 % Sodium Chloride 50 ML IV (23:25)
[2024-08-12] VITALS (8 sets, daily range): BP systolic 111–148; BP diastolic 54–66; PULSE 74–90; RESP 15–20; TEMP 36.1–36.6; O2SAT 85–94
[2024-08-12] MEDS: Azithromycin 500 MG in 0.9 % Sodium Chloride 250 ML 125 MG IV (00:05)
[2024-08-12] MEDS: Albuterol/Iprat 2.5/0.5MG 3 ML AMPUL.NEB INHALE ×4 (07:48→19:44)
[2024-08-12] MEDS: 0.9 % Sodium Chloride Flush 3 ML SYRINGE IVFLUSH ×3 (08:06→22:56)
[2024-08-12] MEDS: amLODIPine Besylate 5 MG TABLET PO (08:06)
[2024-08-12] MEDS: Atorvastatin Calcium 20 MG TABLET PO (08:06)
[2024-08-12] MEDS: Aspirin Enteric Coated 81 MG TABLET.DR PO (08:06)
[2024-08-12] MEDS: predniSONE 20 MG TABLET 40 MG PO (08:06)
--- NOTE | 2024-08-12 09:00 | HO.WOUND ---
Wound Consult: Initial 69yr old?female admitted to [facility] on 08/10/24 - See progress notes and H&P for detailed history.? Wound consult placed for Coccyx wound POA.? Patient agreeable to assessment and photo documentation, however she was eating breakfast and requested I return later for assessment. Agreed to return at future date and or time for assessment. ?
--- NOTE | 2024-08-12 09:04 | P.PNIM_ITS ---
Subjective Subjective Date of Service: 08/12/24 Interval History: f/u on acute hypoxic resp failure d/t copd exa, pna, nstemia and feels better, no sob, no chest pain, Physical Exam 2 Vital Signs: Vital Signs: Last Vital Signs Temp 97.2 F 08/12/24 08:02 Pulse 77 08/12/24 08:02 Resp 20 08/12/24 08:02 BP 111/55 L 08/12/24 08:02 Pulse Ox 92 08/12/24 08:02 O2 Del Method Nasal Cannula 08/12/24 08:02 O2 Flow Rate 2.5 08/12/24 08:02 BMI result Body Mass Index 22.9 General: AO X 3, no acute distress Resp: CTA bilateral CVS: S1,S2,RRR GI: +BS, NT, no distention Skin: No rash Neuro: motor grossly intact Psych: appropriate affect Objective Data Active Medications Acetaminophen (Acetaminophen 325 Mg Tablet) 650 mg PO Q6H PRN PRN Reason: Pain, Mild (Pain Scale 1-3), fever or headache Albuterol/Ipratropium (Albuterol/Iprat 2.5/0.5mg 3 Ml Ampul.Neb) 3 ml INHALE RQ4H WHILE AWAKE [facility] Last Admin: 08/12/24 07:48 Dose: 3 ml Documented By: MIGUEL Albuterol/Ipratropium (Albuterol/Iprat 2.5/0.5mg 3 Ml Ampul.Neb) 3 ml INHALE Q4H PRN PRN Reason: Wheezing Last Admin: 08/11/24 05:04 Dose: 3 ml Documented By: SCOTT Amlodipine Besylate (Amlodipine Besylate 5 Mg Tablet) 5 mg PO DAILY [facility]; Protocol Last Admin: 08/12/24 08:06 Dose: 5 mg Documented By: NIKKI Aspirin (Aspirin Enteric Coated 81 Mg Tablet.) 81 mg PO DAILY [facility] Last Admin: 08/12/24 08:06 Dose: 81 mg Documented By: NIKKI Atorvastatin Calcium (Atorvastatin Calcium 20 Mg Tablet) 20 mg PO DAILY [facility] Last Admin: 08/12/24 08:06 Dose: 20 mg Documented By: NIKKI Calcium Carbonate (Calcium Carbonate 750 Mg Tab.Chew) 750 mg PO Q4H PRN PRN Reason: Heartburn Enoxaparin Sodium (Enoxaparin Sodium 40 Mg/0.4 Ml Syringe) 40 mg SUBCUT Q24H [facility] Last Admin: 08/11/24 18:06 Dose: 40 mg Documented By: NIKKI Ceftriaxone Sodium 1 gm/ (Sodium Chloride) 50 mls @ 100 mls/hr IV Q24H [facility] Last Infusion: 08/12/24 00:09 Dose: Infused Documented By: LIA Azithromycin 500 mg/ Sodium (Chloride) 250 mls @ 125 mls/hr IV Q24H [facility] Last Infusion: 08/12/24 02:06 Dose: Infused Documented By: LIA Magnesium Hydroxide (Milk Of Magnesia 30 Ml Oral.Susp) 30 ml PO DAILY PRN PRN Reason: Constipation Melatonin (Melatonin 3 Mg Tablet) 6 mg PO BEDTIME PRN PRN Reason: Insomnia Ondansetron HCl (Ondansetron Hcl 4 Mg/2 Ml Vial) 4 mg IVPUSH Q8H PRN PRN Reason: Nausea and Vomiting Prednisone (Prednisone 20 Mg Tablet) 40 mg PO DAILY [facility] Last Admin: 08/12/24 08:06 Dose: 40 mg Documented By: NIKKI Sodium Chloride (0.9 % Sodium Chloride Flush 3 Ml Syringe) 3 ml IVFLUSH QSHIFT [facility] Last Admin: 08/12/24 08:06 Dose: 3 ml Documented By: NIKKI Labs 08/11/24 04:13 08/11/24 04:13 Labs: Laboratory Results - last 24 hr 08/11/24 10:11 Troponin I High Sens 261.3 H* Microbiology Microbiology Results: Microbiology 08/10/24 16:13 Blood Culture - Preliminary Blood - Venous No growth after 24 hours. 08/10/24 15:43 Blood Culture - Preliminary Blood - Venous No growth after 24 hours. 08/10/24 Unknown Urine Culture - Preliminary Urine clean catch - Clean Catch Midstream Culture too young to evaluate. Assessment and Plan (1) Acute hypoxemic respiratory failure: Status: Acute (2) Pneumonia: Status: Acute (3) NSTEMI (non-ST elevated myocardial infarction): Status: Acute Plan 67/F w/ HTN, colon cancer 4 yrs ago s/p resection and chemo and now with recurrnet colorectal cancer with pulmonary metastasis, status post-colectomy in May, on chemotherapy in [place], last chemo 2 weeks ago, presenting with dyspnea and found to have sepsis due to pneumonia, COPD exacerbation resulting in acute hypoxic respiratory failure, and elevated troponin I consistent with NSTEMI. Acute hypoxic respiratory failure due to pneumonia, COPD exacerbation, and underlying pulmonary metastasis - Treat underlying conditions - O2 to maintain saturation between 88-92% Sepsis due to right upper lobe pneumonia (sepsis resolved) - Continue Ceftriaxone and Azithromycin started 08/10 - Follow culture results Acute mild exacerbation of emphysema - Related to above - Scheduled bronchodilators and PRN DuoNebs - Prednisone 40 mg x 5 days Elevated troponin, NSTEMI vs. Type 2 GA from sepsis and respiratory failure - Treated with Lovenox (1 dose) and ASA - Cardiology consult - Echocardiogram t - Repeat troponin have trended down recurrent Colorectal cancer with pulmonary metastasis - Now with recurrence - Outpatient follow-up recommended Elevated BNP without signs of heart failure - No pulmonary congestion or leg edema, clinically euvolemic - Hold diuretics - Echo as noted above Hypertension - On Amlodipine Asymptomatic bacteriuria - Already on antibiotics as noted above DVT prophylaxis - Lovenox Diet - Cardiac diet -Code status - Full code need for inpt: management of acute resp failure with hypoxia, PNA Quality Stroke Does the patient have a stroke diagnosis?: No VTE Prior VTE?: No VTE Risk Level:: Medical - moderate - high VTE Device Contraindication: Treatment Not Indicated VTE Drug Contraindication: N/A - Med Ordered
--- NOTE | 2024-08-12 10:21 | PM.PNCARD ---
Subjective Subjective Date of Service: 08/12/24 Principal diagnosis: Elevated troponin Interval history: Patient feeling a lot better. Respiratory status also seems to have improved objectively. Patient's hypoxia has improved. Echocardiogram shows no significant LV dysfunction with wall motion abnormality. Shows RV enlargement. No other heart failure symptoms. Review of Systems Constitutional: Reports no additional constitutional complaints Cardiovascular: Denies chest pain, Reports dyspnea and Reports dyspnea on exertion Respiratory: Reports dyspnea and Reports dyspnea on exertion Skin/Breast: Reports system reviewed and no additional complaints, except as docu Reports system reviewed and no additional complaints, except as documented Psychiatric: Reports no additional psychiatric complaints Physical Exam Vital Signs: Last Vital Signs Temp 97.2 F 08/12/24 08:02 Pulse 77 08/12/24 08:02 Resp 20 08/12/24 08:02 BP 111/55 L 08/12/24 08:02 Pulse Ox 92 08/12/24 08:02 O2 Del Method Nasal Cannula 08/12/24 08:02 O2 Flow Rate 2.5 08/12/24 08:02 BMI result Body Mass Index 22.9 Const General: cooperative, alert, awake, in distress moderate and respiratory and ill appearing Nutritional Appearance: thin Orientation/consciousness: patient oriented x3 HEENT Head: Yes normocephalic and Yes atraumatic Neck Neck: Yes trachea midline, Yes supple and Yes JVD Resp Effort & Inspection: paradoxical thoraco-abdominal movements and respiratory distress Auscultation: wheezes (Improved) and diminished lung sounds Cardio Jugular venous distension: JVD Rate: regular rate Rhythm: abnormal rhythm with ectopic beats Heart sounds: S1 normal heart sound present, S2 normal heart sound present, no click, no gallops, no murmurs and no rubs GI Auscultation: normal bowel sounds Skin General skin exam: no rashes or lesions noted Neuro General: patient oriented x3 and no focal motor deficits Extrem General: Yes no clubbing, cyanosis or edema Objective Labs and Meds 08/11/24 04:13 08/11/24 04:13 Lab results: Laboratory Results - last 24 hr 08/11/24 10:11 Troponin I High Sens 261.3 H* Progress Note: A&P Assessment and plan (1) Acute hypoxemic respiratory failure: Status: Acute Assessment and Plan: Acute hypoxemic respiratory failure causing RV strain with elevated troponins as well as BNP. She is at risk for underlying coronary disease and will need workup for the same. meanwhile I would prescribe her aspirin and statins. Continue to optimize her pulmonary function and continued to treat her aggressively from that perspective. Findings were discussed with patient. She understands agrees. Will set up for outpatient dobutamine Mibi in 4 weeks time and follow-up after that. Will sign of the case. Thank you for allowing me to partake in his care Time Spent With Patient Time: Total time managing care of this patient today ____ minutes. Progress Note: Quality Stroke Does the patient have a stroke diagnosis?: No Procedures Date of Service Date of Service: 08/12/24
[2024-08-12] MEDS: guaiFENesin 100 MG/5 ML 5 ML LIQUID PO ×2 (12:14→18:17)
[2024-08-12] MEDS: Benzonatate 100 MG CAPSULE PO ×2 (12:14→19:45)
[2024-08-12] MEDS: Enoxaparin Sodium 40 MG/0.4 ML SYRINGE SUBCUT (17:48)
[2024-08-12] MEDS: cefTRIAXone sodium 1 GM in 0.9 % Sodium Chloride 50 ML IV (22:55)
[2024-08-13] VITALS (10 sets, daily range): BP systolic 122–142; BP diastolic 58–79; PULSE 70–91; RESP 15–20; TEMP 36.1–36.4; O2SAT 88–93
[2024-08-13] MEDS: guaiFENesin 100 MG/5 ML 5 ML LIQUID PO ×3 (00:04→18:40)
[2024-08-13] MEDS: Azithromycin 500 MG in 0.9 % Sodium Chloride 250 ML 125 MG IV (00:04)
--- NOTE | 2024-08-13 02:23 | PC.NURSE ---
Pt reporting R arm pain, upon assessment to R peripheral IV site, Pt's arm noted to be swollen, IV infiltrated, IV removed, warm compress applied to site. Pt has an accessed implanted port to R chest that is intact, patent and asymptomatic.
[2024-08-13] MEDS: Albuterol/Iprat 2.5/0.5MG 3 ML AMPUL.NEB INHALE ×4 (07:34→19:21)
[2024-08-13] MEDS: Atorvastatin Calcium 20 MG TABLET PO (09:05)
[2024-08-13] MEDS: 0.9 % Sodium Chloride Flush 3 ML SYRINGE IVFLUSH ×2 (09:36→16:30)
[2024-08-13] MEDS: amLODIPine Besylate 5 MG TABLET PO (09:37)
[2024-08-13] MEDS: Aspirin Enteric Coated 81 MG TABLET.DR PO (09:39)
--- NOTE | 2024-08-13 09:39 | P.PNIM_ITS ---
Subjective Subjective Date of Service: 08/13/24 Interval History: f/u on acute hypoxic resp failure d/t copd exa, pna, nstemia and feel great but still hypoxic and requiring O2 Physical Exam 2 Vital Signs: Vital Signs: Last Vital Signs Temp 97.1 F 08/13/24 07:05 Pulse 79 08/13/24 07:35 Resp 18 08/13/24 07:35 BP 142/65 H 08/13/24 07:05 Pulse Ox 92 08/13/24 07:05 O2 Del Method Nasal Cannula 08/13/24 07:05 O2 Flow Rate 2 08/13/24 07:05 BMI result Body Mass Index 22.9 General: AO X 3, no acute distress Resp: CTA bilateral CVS: S1,S2,RRR GI: +BS, NT, no distention Skin: No rash Neuro: motor grossly intact Psych: appropriate affect Objective Data Active Medications Acetaminophen (Acetaminophen 325 Mg Tablet) 650 mg PO Q6H PRN PRN Reason: Pain, Mild (Pain Scale 1-3), fever or headache Albuterol/Ipratropium (Albuterol/Iprat 2.5/0.5mg 3 Ml Ampul.Neb) 3 ml INHALE RQ4H WHILE AWAKE [facility] Last Admin: 08/13/24 07:34 Dose: 3 ml Documented By: ZARIA Albuterol/Ipratropium (Albuterol/Iprat 2.5/0.5mg 3 Ml Ampul.Neb) 3 ml INHALE Q4H PRN PRN Reason: Wheezing Last Admin: 08/11/24 05:04 Dose: 3 ml Documented By: SCOTT Amlodipine Besylate (Amlodipine Besylate 5 Mg Tablet) 5 mg PO DAILY [facility]; Protocol Last Admin: 08/12/24 08:06 Dose: 5 mg Documented By: NIKKI Aspirin (Aspirin Enteric Coated 81 Mg Tablet.) 81 mg PO DAILY [facility] Last Admin: 08/12/24 08:06 Dose: 81 mg Documented By: NIKKI Atorvastatin Calcium (Atorvastatin Calcium 20 Mg Tablet) 20 mg PO DAILY [facility] Last Admin: 08/12/24 08:06 Dose: 20 mg Documented By: NIKKI Benzonatate (Benzonatate 100 Mg Capsule) 100 mg PO TID PRN PRN Reason: Cough Last Admin: 08/12/24 19:45 Dose: 100 mg Documented By: ESTEFANIA Calcium Carbonate (Calcium Carbonate 750 Mg Tab.Chew) 750 mg PO Q4H PRN PRN Reason: Heartburn Enoxaparin Sodium (Enoxaparin Sodium 40 Mg/0.4 Ml Syringe) 40 mg SUBCUT Q24H [facility] Last Admin: 08/12/24 17:48 Dose: 40 mg Documented By: NIKKI Guaifenesin (Guaifenesin 100 Mg/5 Ml 5 Ml Liquid) 5 ml PO Q6H PRN PRN Reason: Cough Last Admin: 08/13/24 00:04 Dose: 5 ml Documented By: COTEMA Ceftriaxone Sodium 1 gm/ (Sodium Chloride) 50 mls @ 100 mls/hr IV Q24H [facility] Last Infusion: 08/12/24 23:49 Dose: Infused Documented By: ESTEFANIA Azithromycin 500 mg/ Sodium (Chloride) 250 mls @ 125 mls/hr IV Q24H [facility] Last Infusion: 08/13/24 02:22 Dose: Infused Documented By: ESTEFANIA Magnesium Hydroxide (Milk Of Magnesia 30 Ml Oral.Susp) 30 ml PO DAILY PRN PRN Reason: Constipation Melatonin (Melatonin 3 Mg Tablet) 6 mg PO BEDTIME PRN PRN Reason: Insomnia Ondansetron HCl (Ondansetron Hcl 4 Mg/2 Ml Vial) 4 mg IVPUSH Q8H PRN PRN Reason: Nausea and Vomiting Prednisone (Prednisone 20 Mg Tablet) 40 mg PO DAILY [facility] Last Admin: 08/12/24 08:06 Dose: 40 mg Documented By: NIKKI Sodium Chloride (0.9 % Sodium Chloride Flush 3 Ml Syringe) 3 ml IVFLUSH QSHIFT [facility] Last Admin: 08/13/24 09:36 Dose: 3 ml Documented By: RAEJ Labs 08/11/24 04:13 08/11/24 04:13 Microbiology Microbiology Results: Microbiology 08/10/24 16:13 Blood Culture - Preliminary Blood - Venous No growth after 48 hours. 08/10/24 15:43 Blood Culture - Preliminary Blood - Venous No growth after 48 hours. 08/10/24 Unknown Urine Culture - Final Urine clean catch - Clean Catch Midstream Assessment and Plan (1) Acute hypoxemic respiratory failure: Status: Acute (2) Pneumonia: Status: Acute (3) NSTEMI (non-ST elevated myocardial infarction): Status: Acute Plan 67/F w/ HTN, colon cancer 4 yrs ago s/p resection and chemo and now with recurrnet colorectal cancer with pulmonary metastasis, status post-colectomy in May, on chemotherapy in [place], last chemo 2 weeks ago, presenting with dyspnea and found to have sepsis due to pneumonia, COPD exacerbation resulting in acute hypoxic respiratory failure, and elevated troponin I consistent with NSTEMI. Acute hypoxic respiratory failure due to pneumonia, COPD exacerbation, and underlying pulmonary metastasis - Treat underlying conditions - O2 to maintain saturation between 88-92% -wean off O2, may need home O2 Sepsis due to right upper lobe pneumonia (sepsis resolved) - Continue Ceftriaxone and Azithromycin started 08/10 - Follow culture results Acute mild exacerbation of emphysema - Related to above - Scheduled bronchodilators and PRN DuoNebs - Prednisone 40 mg x 5 days Elevated troponin, NSTEMI vs. Type 2 [place] from sepsis and respiratory failure - Treated with Lovenox (1 dose) and ASA - Cardiology consult - Echocardiogram t - Repeat troponin have trended down -will have outpatient stress recurrent Colorectal cancer with pulmonary metastasis - Now with recurrence - Outpatient follow-up recommended Elevated BNP without signs of heart failure - No pulmonary congestion or leg edema, clinically euvolemic - Hold diuretics - Echo as noted above Hypertension - On Amlodipine Asymptomatic bacteriuria - Already on antibiotics as noted above DVT prophylaxis - Lovenox Diet - Cardiac diet -Code status - Full code need for inpt: management of acute resp failure with hypoxia, PNA Quality Stroke Does the patient have a stroke diagnosis?: No VTE Prior VTE?: No VTE Risk Level:: Medical - moderate - high VTE Device Contraindication: Treatment Not Indicated VTE Drug Contraindication: N/A - Med Ordered
[2024-08-13] MEDS: predniSONE 20 MG TABLET 40 MG PO (09:40)
--- NOTE | 2024-08-13 10:12 | MHC.CM.PN ---
PER MD ROUNDS, PT WILL BE WEANED OFF O2 TODAY AND LIKELY DC TOMORROW DCP: HOME NO SERVICES TO TRANSPORT
[2024-08-13 10:31] LABS: Hematocrit 27.3 % (37.0-47.0); Hemoglobin 9.5 g/dl (12.0-16.0); Mean Corpuscular HGB Conc 34.8 g/dl (31.0-35.0); Mean Corpuscular Hemoglobin 29.6 pg (27.0-33.0); Mean Platelet Volume 9.6 fL (9.4-12.3); NRBC Pct Auto 0.5 /100WBC (0.0-0.2); Platelet Count 368 X10*3/uL (160-400); Red Blood Count 3.21 X10*6/uL (4.20-5.50); Red Cell Distribution Width 15.1 % (11.0-16.0); White Blood Count 9.5 X10*3/uL (4.8-10.8)
[2024-08-13 11:02] LABS: Anion Gap 13 (12-20); Blood Urea Nitrogen 32 mg/dL (9-16); Calcium 9.2 mg/dL (8.4-10.2); Carbon Dioxide 27 mmol/L (22-29); Chloride 105 mmol/L (96-108); Creatinine Clr Calc Pharmacy 46.1; Estimated Glomerular Filt Rate > 60; Glucose Random 190 mg/dL (60-115); Potassium 4.1 mmol/L (3.3-5.1); Sodium 141 mmol/L (135-145)
[2024-08-13] MEDS: Benzonatate 100 MG CAPSULE PO (16:29)
[2024-08-13] MEDS: Enoxaparin Sodium 40 MG/0.4 ML SYRINGE SUBCUT (18:40)
[2024-08-14] VITALS (8 sets, daily range): BP systolic 147–163; BP diastolic 72–79; PULSE 73–90; RESP 17–20; TEMP 36.2–36.8; O2SAT 89–98
[2024-08-14] MEDS: Azithromycin 500 MG in 0.9 % Sodium Chloride 250 ML 125 MG IV ×2 (00:04→23:37)
[2024-08-14] MEDS: guaiFENesin 100 MG/5 ML 5 ML LIQUID PO ×3 (00:12→23:30)
[2024-08-14] MEDS: Benzonatate 100 MG CAPSULE PO ×2 (04:11→18:00)
[2024-08-14] MEDS: Albuterol/Iprat 2.5/0.5MG 3 ML AMPUL.NEB INHALE ×4 (07:36→18:54)
[2024-08-14] MEDS: Atorvastatin Calcium 20 MG TABLET PO (08:17)
[2024-08-14] MEDS: predniSONE 20 MG TABLET 40 MG PO (08:18)
[2024-08-14] MEDS: 0.9 % Sodium Chloride Flush 3 ML SYRINGE IVFLUSH ×3 (08:18→23:39)
[2024-08-14] MEDS: Aspirin Enteric Coated 81 MG TABLET.DR PO (08:18)
[2024-08-14] MEDS: amLODIPine Besylate 5 MG TABLET PO (08:18)
--- NOTE | 2024-08-14 08:55 | P.PNIM_ITS ---
Subjective Subjective Date of Service: 08/14/24 Interval History: f/u on acute hypoxic resp failure d/t copd exa, pna, nstemia and feel better, didn't sleep d/t cough Physical Exam 2 Vital Signs: Vital Signs: Last Vital Signs Temp 98.2 F 08/14/24 07:56 Pulse 77 08/14/24 07:56 Resp 17 08/14/24 07:56 BP 147/73 H 08/14/24 07:56 Pulse Ox 91 L 08/14/24 07:56 O2 Del Method Nasal Cannula 08/14/24 07:56 O2 Flow Rate 1.5 08/14/24 07:56 BMI result Body Mass Index 22.9 General: AO X 3, no acute distress Resp: diminished, no wheezing CVS: S1,S2,RRR GI: +BS, NT, no distention Skin: No rash Neuro: motor grossly intact Psych: appropriate affect Objective Data Active Medications Acetaminophen (Acetaminophen 325 Mg Tablet) 650 mg PO Q6H PRN PRN Reason: Pain, Mild (Pain Scale 1-3), fever or headache Albuterol/Ipratropium (Albuterol/Iprat 2.5/0.5mg 3 Ml Ampul.Neb) 3 ml INHALE RQ4H WHILE AWAKE [facility] Last Admin: 08/14/24 07:36 Dose: 3 ml Documented By: STANLEY Albuterol/Ipratropium (Albuterol/Iprat 2.5/0.5mg 3 Ml Ampul.Neb) 3 ml INHALE Q4H PRN PRN Reason: Wheezing Last Admin: 08/11/24 05:04 Dose: 3 ml Documented By: SCOTT Amlodipine Besylate (Amlodipine Besylate 5 Mg Tablet) 5 mg PO DAILY [facility]; Protocol Last Admin: 08/14/24 08:18 Dose: 5 mg Documented By: RAMA Aspirin (Aspirin Enteric Coated 81 Mg Tablet.) 81 mg PO DAILY [facility] Last Admin: 08/14/24 08:18 Dose: 81 mg Documented By: RAMA Atorvastatin Calcium (Atorvastatin Calcium 20 Mg Tablet) 20 mg PO DAILY [facility] Last Admin: 08/14/24 08:17 Dose: 20 mg Documented By: RAMA Benzonatate (Benzonatate 100 Mg Capsule) 100 mg PO TID PRN PRN Reason: Cough Last Admin: 08/14/24 04:11 Dose: 100 mg Documented By: PRESLEY Calcium Carbonate (Calcium Carbonate 750 Mg Tab.Chew) 750 mg PO Q4H PRN PRN Reason: Heartburn Ceftriaxone Sodium (Ceftriaxone Sodium 1 Gm Vial) 1 gm IVPUSH Q24H [facility] Last Admin: 08/14/24 00:00 Dose: 1 gm Documented By: PRESLEY Enoxaparin Sodium (Enoxaparin Sodium 40 Mg/0.4 Ml Syringe) 40 mg SUBCUT Q24H [facility] Last Admin: 08/13/24 18:40 Dose: 40 mg Documented By: VIRY Guaifenesin (Guaifenesin 100 Mg/5 Ml 5 Ml Liquid) 5 ml PO Q6H PRN PRN Reason: Cough Last Admin: 08/14/24 00:12 Dose: 5 ml Documented By: PRESLEY Azithromycin 500 mg/ Sodium (Chloride) 250 mls @ 125 mls/hr IV Q24H [facility] Last Infusion: 08/14/24 02:06 Dose: Infused Documented By: PRESLEY Magnesium Hydroxide (Milk Of Magnesia 30 Ml Oral.Susp) 30 ml PO DAILY PRN PRN Reason: Constipation Melatonin (Melatonin 3 Mg Tablet) 6 mg PO BEDTIME PRN PRN Reason: Insomnia Ondansetron HCl (Ondansetron Hcl 4 Mg/2 Ml Vial) 4 mg IVPUSH Q8H PRN PRN Reason: Nausea and Vomiting Prednisone (Prednisone 20 Mg Tablet) 40 mg PO DAILY [facility] Last Admin: 08/14/24 08:18 Dose: 40 mg Documented By: RAMA Sodium Chloride (0.9 % Sodium Chloride Flush 3 Ml Syringe) 3 ml IVFLUSH QSHIFT [facility] Last Admin: 08/14/24 08:18 Dose: 3 ml Documented By: RAMA Labs 08/13/24 09:32 08/13/24 09:32 Labs: Laboratory Results - last 24 hr 08/13/24 09:32 MCV 85.0 MCH 29.6 MCHC 34.8 RDW 15.1 Plt Count 368 D MPV 9.6 Absolute Nucleated RBC 0.050 H Nucleated RBC % (auto) 0.5 H Anion Gap 13 Estim Creat Clear Calc 46.1 Estimated GFR > 60 Random Glucose 190 H Calcium 9.2 D Microbiology Microbiology Results: Microbiology 08/13/24 15:05 Gram Stain - Final Sputum - Expectorated Assessment and Plan (1) Acute hypoxemic respiratory failure: Status: Acute (2) Pneumonia: Status: Acute (3) NSTEMI (non-ST elevated myocardial infarction): Status: Acute Plan 67/F w/ HTN, colon cancer 4 yrs ago s/p resection and chemo and now with recurrnet colorectal cancer with pulmonary metastasis, status post-colectomy in May, on chemotherapy in [place], last chemo 2 weeks ago, presenting with dyspnea and found to have sepsis due to pneumonia, COPD exacerbation resulting in acute hypoxic respiratory failure, and elevated troponin I consistent with NSTEMI. Acute hypoxic respiratory failure due to pneumonia, COPD exacerbation, and underlying pulmonary metastasis - Treat underlying conditions - O2 to maintain saturation between 88-92% -wean off O2, may need home O2 Sepsis due to right upper lobe pneumonia (sepsis resolved) - Continue Ceftriaxone and Azithromycin started 08/10, change to Augmentin at dc - Follow culture results Acute mild exacerbation of emphysema - Related to above - Scheduled bronchodilators and PRN DuoNebs - Prednisone 40 mg x 5 days, ending 08/15 Elevated troponin, NSTEMI vs. Type 2 [place] from sepsis and respiratory failure - Treated with Lovenox (1 dose) and ASA - Cardiology consult - Echocardiogram t - Repeat troponin have trended down -will have outpatient stress recurrent Colorectal cancer with pulmonary metastasis - Now with recurrence - Outpatient follow-up with oncology Elevated BNP without signs of heart failure - No pulmonary congestion or leg edema, clinically euvolemic - Hold diuretics - Echo as noted above Hypertension - On Amlodipine Asymptomatic bacteriuria - Already on antibiotics as noted above DVT prophylaxis - Lovenox Diet - Cardiac diet -Code status - Full code need for inpt: management of acute resp failure with hypoxia, PNA Quality Stroke Does the patient have a stroke diagnosis?: No VTE Prior VTE?: No VTE Risk Level:: Medical - moderate - high VTE Device Contraindication: Treatment Not Indicated VTE Drug Contraindication: N/A - Med Ordered
[2024-08-14] MEDS: Enoxaparin Sodium 40 MG/0.4 ML SYRINGE SUBCUT (17:59)
[2024-08-14] MEDS: cefTRIAXone sodium 1 GM VIAL IVPUSH ×2 (23:30)
[2024-08-15 04:00] VITALS: BP 164/79; PULSE 79; RESP 17; TEMP 36.1; O2SAT 91
[2024-08-15] MEDS: Benzonatate 100 MG CAPSULE PO (04:40)
[2024-08-15 07:42] VITALS: BP 161/75; PULSE 75; RESP 18; TEMP 36.2; O2SAT 91
[2024-08-15] MEDS: Albuterol/Iprat 2.5/0.5MG 3 ML AMPUL.NEB INHALE ×2 (07:45→11:23)
[2024-08-15 07:47] VITALS: PULSE 71; RESP 18; O2SAT 91
[2024-08-15] MEDS: 0.9 % Sodium Chloride Flush 3 ML SYRINGE IVFLUSH (07:48)
[2024-08-15] MEDS: Atorvastatin Calcium 20 MG TABLET PO (07:49)
[2024-08-15] MEDS: predniSONE 20 MG TABLET 40 MG PO (07:49)
[2024-08-15] MEDS: amLODIPine Besylate 5 MG TABLET PO (07:49)
[2024-08-15] MEDS: Aspirin Enteric Coated 81 MG TABLET.DR PO (07:49)
--- NOTE | 2024-08-15 08:39 | PC.NURSE ---
Attempt Room Air, O2 down to 78 on RA, back on 2L NC, O2 back up to 90, RT notified.
--- NOTE | 2024-08-15 10:28 | PM.DS ---
DS: Providers Provider Date of Service: 08/15/24 Date of admission: 08/10/24 21:58 Date of discharge: 08/15/24 Primary care physician: Frankie Padron MD Consults: 08/10/24 23:12 Consult to Cardiology Routine Consulting Provider[place] [facility] [place] Reason for consultation: elevated troponin Has provider been notified: Yes 08/12/24 02:04 Consult to Wound Care Routine Reason for consultation: skin tear coxxyx DS: Diagnosis Discharge Diagnosis (1) Acute hypoxemic respiratory failure: Status: Acute (2) Pneumonia: Status: Acute (3) NSTEMI (non-ST elevated myocardial infarction): Status: Acute DS: Summary Hospital Course Hospital Course: admission hpi Chief Complaint: Dyspnea This is a 67-year-old female with pertinent history of hypertension, colorectal cancer with pulmonary metastasis status post colectomy, chemotherapy and radiation, recurrence in 05/2024 status post chemotherapy who presents to the emergency department with complaints of shortness of breath. Patient states she started having productive cough with runny nose about a week ago. It has been constant and subsequently she developed shortness of breath, worse with exertion. Sputum was initially clear but has changed to yellowish in color. Also had chills. Documented fever up to 100.7. Patient denies nausea, vomiting, chest pain, palpitations, abdominal pain, changes in urinary or bowel habits. No orthopnea or PND. No pedal edema. Last chemotherapy session was 2 weeks ago. In the emergency department, patient was found to be hypoxemic on room air. Currently requiring 5 L supplemental oxygen to maintain normal O2 sats. Imaging with consolidation. hospital course: 67/F w/ HTN, colon cancer 4 yrs ago s/p resection and chemo and now with recurrnet colorectal cancer with pulmonary metastasis, status post-colectomy in May, on chemotherapy in [place], last chemo 2 weeks ago, presenting with dyspnea and found to have sepsis due to pneumonia, COPD exacerbation resulting in acute hypoxic respiratory failure, and elevated troponin I consistent with type 2 [place] Acute hypoxic respiratory failure due to pneumonia, COPD exacerbation, and underlying pulmonary metastasis, underlying copd and pneumonia treated as below. Was on oxgyen with goal of O2 sat 88 to 92, unfortunately was not able to succesfully wean from O2 and will require O2 at home. Sepsis due to right upper lobe pneumonia (sepsis resolved). She was treated in the with Ceftriaxone and Azithromycin started 08/10/24 and will treat for a total of 7 days, will discharge with Augmentin for 2 more days. Cultures have been negative. Acute mild exacerbation of emphysema, treated with bronchodilators and Prednisone and has completed 5 days of Prednisone. To use oxygen as above. Albuterol MDI as needed for shortness of breath. Home O2 has been arranged. Elevated troponin, NSTEMI, with no acute ischemic changes on ECG, and no chest pain. Was seen by cardio and will have outpatient stress test, to continue ASA daily,, - Treated with Lovenox (1 dose) and ASA. ECho showed dilated right ventricule, normal EF of 60 to 65%. Lipid panel was as follow No indication for statin at this time Recurrent Colorectal cancer with pulmonary metastasis - Now with recurrence - Outpatient follow-up with oncology Elevated BNP without signs of heart failure - No pulmonary congestion or leg edema, clinically euvolemic , no indictaion for diuresis Hypertension - On Amlodipine Asymptomatic bacteriuria - Already on antibiotics as noted above Time Attestation Discharge Coordination Time (in mins): 35 Quality: Safe Use of Opioids Does Pt have an Active Cancer Diagnosis on the Problem List?: No Quality: Stroke Does the patient have a stroke diagnosis?: No Physical Exam Vital Signs: Vital Signs: Last Vital Signs Temp 97.1 F 08/15/24 07:42 Pulse 71 08/15/24 07:47 Resp 18 08/15/24 07:47 BP 161/75 H 08/15/24 07:42 Pulse Ox 91 L 08/15/24 07:42 O2 Del Method Nasal Cannula 08/15/24 07:42 O2 Flow Rate 1.0 08/15/24 07:42 BMI result Body Mass Index 22.9 General: AO X 3, no acute distress Resp: CTA bilateral CVS: S1,S2,RRR GI: +BS, NT, no distention Skin: No rash Neuro: motor grossly intact Psych: appropriate affect DS: Data Data Completed and Pending Labs on day of discharge: Preliminary micro results at discharge 08/13/24 15:05 Sputum Culture - Preliminary Sputum - Expectorated 08/10/24 16:13 Blood Culture - Preliminary Blood - Venous No growth after 48 hours. 08/10/24 15:43 Blood Culture - Preliminary Blood - Venous No growth after 48 hours. Discharge Plan Discharge Anticipated Discharge Date/Time: 08/15/24 12:06 Patient Disposition: Home, Self-Care Discharge Diagnosis: Pneumonia, COPD exacerbation, acute hypoxia Referrals: Frankie Padron MD [Primary Care Provider] - 1 Week Discharge Medications: New aspirin 81 mg Tablet,Delayed Release (Dr/Ec) 81 mg PO DAILY Qty: 180 0RF guaifenesin 100 mg/5 mL Liquid 100 mg PO Q6H PRN (Reason: Cough) Qty: 1000 0RF albuterol sulfate [Ventolin HFA] 90 mcg/actuation Hfa Aerosol Inhaler 2 puff inhalation RQ4H PRN (Reason: Shortness Of Breath/Wheezing) Qty: 1 2RF amoxicillin-pot clavulanate 875-125 mg Tablet 1 tab PO Q12H Qty: 4 0RF Continued amlodipine 5 mg tablet 1 tab PO DAILY Discharge Orders: Discharge Order (Routine); Ordered 08/15/24 Ordered By: Ryan Lewis Diet: Advance to usual diet Activity on Discharge: As tolerated Stand Alone Forms: Patient Portal Discharge page Print Language: Slovak Care Plan Goals: recovery from pneumonia, copd, and acute respriatory failure Health Concerns: pneumonia copd hypoxia elevated cardiac enzymes Plan of Treatment: Take Augmentin for 2 more days follow up with your pcp and ocology cardiac office will arrange a follow up visit with you Assessment: see above
[2024-08-15 11:12] VITALS: PULSE 71; PULSE 87; PULSE 88; PULSE 92; O2SAT 78; O2SAT 86; O2SAT 90; O2SAT 91
[2024-08-15 11:34] VITALS: PULSE 88; RESP 20; O2SAT 91
[2024-08-15] MEDS: Amoxicillin/Potassium Clav 875 MG TABLET PO (12:15)
--- NOTE | 2024-08-15 12:29 | P.F2F_ITS ---
Service Date Service Date: 08/15/24 Encounter Date of encounter: 08/15/24 Reasons for Services Signs and symptoms assessed: shortness of breath at rest and with minimal effort Reason for senior care: CV/CP assess and/or care and teach disease management Homebound: Leaving the home is medically contraindicated at this time without the asist of a device and/or another person due th the listed conditions above and below. Reason homebound: weakness related to hospital stay Homebound supporting statement: homeboud due to weakness from hospitalization, cancer on chemo, requring oxygen and therefore needs the assistance of another person Certification: Based on the above findings, I certify that this patient is confined to the home and needs intermittent senior care care, physical therapy and/or speech th erapy, or continues to need occupational therapy. The patient is under my care, and I have initiated the establishment of the plan of care. The patient will be followed by a physician who will periodically review the plan of care. Time Spent With Patient Time: Total time managing care of this patient today ____ minutes.
--- NOTE | 2024-08-15 12:40 | MHC.CM.PN ---
PT WILL DC HOME TODAY WITH [facility] FOR SN PRIVATE TRANSPORT
--- NOTE | 2024-08-15 13:01 | PC.NURSE ---
Pt refusing Heparin Flush with Port De-Access. notified. Pt aware of the risks and states understanding. Pt tolerated Port De-Acess well. no bleeding.
== END 2024-08-15 13:23 | disposition home health service (06) | DRG 871 ==
LOC: HO.ED 16:09 → HO.EDOVER 22:23 → HO.S3 08-11 11:29
PROVIDERS: Emergency Medicine; Physician Assistant; Admitting Provider Student in an Organized Health Care Education/Training Program; Emergency Provider Internal Medicine; PCP Internal Medicine; Visit Provider Internal Medicine
DX: A41.9 Sepsis, unspecified organism (principal); I21.A1 Myocardial infarction type 2; J18.9 Pneumonia, unspecified organism; J96.01 Acute respiratory failure with hypoxia; C19 Malignant neoplasm of rectosigmoid junction; C78.00 Secondary malignant neoplasm of unspecified lung; I10 Essential (primary) hypertension; J43.9 Emphysema, unspecified; I27.81 Cor pulmonale (chronic); Z20.822 Contact with and (suspected) exposure to COVID-19; Z87.891 Personal history of nicotine dependence; Z79.899 Other long term (current) drug therapy
CPT/HCPCS: 0241U; 36415; 71046; 71275; 80048; 80053; 80061; 80076; 81001; 82803; 83605; 83690; 83735; 83880; 84145; 84484; 85025; 85027; 85610; 86140; 87040; 87070; 87086; 87205; 93005; 93306; 94640; 99285; J0456; J0692; J0696; J1650; J2919; J3371; J7120; Q9957; Q9967

== ENCOUNTER → 2024-08-10 15:11 | Outpatient (BNV) | payer MEDICARE, SELFPAY | PROVIDERS: Admitting Provider Student in an Organized Health Care Education/Training Program; Emergency Provider Internal Medicine; PCP Internal Medicine; Visit Provider Internal Medicine Cardiovascular Disease | DX: R94.31 Abnormal electrocardiogram [ECG] [EKG] (principal) | CPT/HCPCS: 93010 ==

== ENCOUNTER 2024-08-10 21:58 | Outpatient (BNV) | payer MEDICARE, SELFPAY | END 2024-08-11 08:01 | PROVIDERS: Admitting Provider Student in an Organized Health Care Education/Training Program; Emergency Provider Internal Medicine; PCP Internal Medicine; Visit Provider Internal Medicine Cardiovascular Disease | DX: I21.4 Non-ST elevation (NSTEMI) myocardial infarction (principal); I35.8 Other nonrheumatic aortic valve disorders; I36.1 Nonrheumatic tricuspid (valve) insufficiency; R94.31 Abnormal electrocardiogram [ECG] [EKG] | CPT/HCPCS: 93010; 93306 ==

== ENCOUNTER → 2024-08-10 21:58 | Outpatient (BNV) | payer MEDICARE, SELFPAY | PROVIDERS: Admitting Provider Student in an Organized Health Care Education/Training Program; Emergency Provider Internal Medicine; PCP Internal Medicine; Visit Provider Internal Medicine Cardiovascular Disease | DX: J96.01 Acute respiratory failure with hypoxia (principal) | CPT/HCPCS: 99222; 99233 ==

== ENCOUNTER → 2024-08-10 21:58 | Outpatient (BNV) | payer MEDICARE, SELFPAY | PROVIDERS: Admitting Provider Student in an Organized Health Care Education/Training Program; Emergency Provider Internal Medicine; PCP Internal Medicine; Visit Provider Student in an Organized Health Care Education/Training Program | DX: A41.9 Sepsis, unspecified organism (principal); J96.01 Acute respiratory failure with hypoxia; I21.4 Non-ST elevation (NSTEMI) myocardial infarction; J18.9 Pneumonia, unspecified organism | CPT/HCPCS: 99223; 99232; 99239; G0180 ==

== ENCOUNTER → 2024-09-15 07:44 | Outpatient (REF) | payer MEDICARE, SELFPAY ==
--- NOTE | 2024-09-15 07:47 | CA_ITS ---
Transthoracic Echocardiogram Patient (Last, First, Middle): Davina Monroy Lee Gender: Female Date of : 1955 Age: 69 Procedure Date: 09/15/2024 Procedure Type: Transthoracic Echocardiogram Location: OP Height: 157.48 cm Weight: 55.34 kg BSA: 1.55 m2 Heart Rate: 89 bpm BP: 120 / 62 mmHg Loaders: VIVIAN Referring MD: Adolfo Sow MD Chemist Organic: Adolfo Sow MD Symptoms: I21.4 - Non-ST elevation (NSTEMI) myocardial infarction Study Quality: Adequate ECG Rhythm: Sinus Conclusions: - Normal LV ejection fraction of 60-65% with grade 1 diastolic dysfunction with mildly dilated right ventricle with preserved contractility Findings Left Ventricle Normal left ventricular size, thickness, and systolic function. The visually estimated ejection fraction is between 60-65%. Spectral Doppler is indicative of an impaired relaxation filling pattern. E/E prime ratio is <8, consistent with normal filling pressures. Evidence suggests grade I (mild) diastolic dysfunction. Right Ventricle Mildly increased right ventricular cavity size. There is normal right ventricular systolic function. Prior Study Comparison No significant change compared to prior study dated: 08/11/2024. Measurements 2D Linear Measurements IVSd: 0.71 0.6-0.9/0.6-1.0 cm LVIDd: 4.70 3.9-5.3/4.2-5.9 cm LVIDd Index: 3.03 2.4-3.2/2.2-3.1 cm/m2 LVIDs: 2.66 2.0-3.6 cm LVPWd: 0.55 0.7-1.1 cm LV Mass: 111.54 67-162/88-224 g LV Mass Index: 71.96 43-95/49-115 g/m2 LVOT Diam: 2.00 3.0+(-)1.3 cm 2D Systolic Function EF 4C: 62.70 >55% EF 2C: 50.80 >55% EF BiP: 60.50 >55% Mitral Valve MV Pk E: 0.60 MV PK A: 0.81 MV Decel Time: 236.00 E/A: 0.70 E'Lateral: 6.96 E'Medial: 4.79 E/E' Med: 12.40 E/E' Lat: 8.60 PHT: 69.00 MVA PHT: 3.19 Decel [place]: 2.53 LVOT LVOT Pk Nate: 1.55 LVOT Mn Nate: 0.89 LVOT VTI: 0.24 LVOT Pk Grad: 10.00 LVOT Mn Grad: 4.00 LVOT Diam: 2.00 LVOT Area: 3.14 Diastolic Function MV Pk E: 0.60 MV Pk A: 0.81 E/A: 0.70 E'Medial: 4.79 E/E' Med: 12.40 E' Laterial: 6.96 E/E' Lat: 8.60 Right Ventricle TAPSE (mm): 21.50 TVS' Nate: 18.10 Tricuspid Valve TR Pk Nate: 2.65 TR Pk Grad: 28.00 RA Press: 8.00 RVSP: 36.00 Updated in Other Vendor System with Status of Final Adolfo Sow MD electronically signed on 09/15/2024 11:12:19 AM with status of Final
== END ==
LOC: HO.CARD 07:44
PROVIDERS: PCP Internal Medicine; Visit Provider Internal Medicine Cardiovascular Disease
DX: I21.4 Non-ST elevation (NSTEMI) myocardial infarction (principal); I10 Essential (primary) hypertension; N17.9 Acute kidney failure, unspecified; J96.01 Acute respiratory failure with hypoxia
CPT/HCPCS: 93308

== ENCOUNTER → 2024-09-15 07:47 | Outpatient (BNV) | payer MEDICARE, SELFPAY | PROVIDERS: PCP Internal Medicine; Visit Provider Internal Medicine Cardiovascular Disease | DX: I21.4 Non-ST elevation (NSTEMI) myocardial infarction (principal); I51.89 Other ill-defined heart diseases | CPT/HCPCS: 93308; 93321 ==

== ENCOUNTER → 2024-10-22 09:25 | Outpatient (REF) | payer MEDICARE, SELFPAY ==
--- NOTE | ~2024-10-22 | NM_ITS ---
Dobutamine Myocardial perfusion study Indication: NSTEMI Technique: The patient was brought in for a dobutamine myocardial perfusion study on 10/22/2024 and was injected dobutamine per protocol intravenously up to a maximum dose of 20 mcg/kg/min followed by 25 mCi of sestamibi given intravenously. Images were obtained using the SPECT gamma camera interlaced with the gating device. Images were obtained in supine position. Resting perfusion study was performed on 10/25/2024. Patient was administered 25 mCi of sestamibi intravenously at rest. Images were then obtained in supine position. Total DLP 82 mGy-cm. Images were processed with the software and compared side to side in short axis, horizontal long axis and vertical long axis views. Findings: Raw aquisition reviewed. Arms by the patient's side. The stress perfusion study showed no significant perfusion defects. Both uncorrected as well as CT attenuation corrected images were reviewed. The gated study shows normal LV systolic function with calculated LVEF of 63%. LV cavity is normal in size. The gated study shows normal wall thickening and contraction of segments. Resting study shows decreased tracer uptake along the inferolateral wall. There is improvement with CT attenuation correction suggestive of diaphragmatic attenuation artifact. Gating at rest reveals normal wall motion with ejection fraction at 73%. The findings are consistent with no clear reversible or fixed perfusion defects. NM/NM cardiolite stress test Impression: 1. Myocardial perfusion imaging study shows normal myocardial perfusion. 2. Gated LVEF is 63% during stress; > 70% during rest. 3. Transient ischemic dilatation not present. EKG component of the test reported separately. Electronically signed by: Dakota Muñoz MD 10/26/2024 09:12 AM [facility]
--- NOTE | 2024-10-22 09:27 | CA_ITS ---
Acquisition Time: 2024-10-22 10:21:34 Total Exercise Time: 00:12:26 Test Indications: sob Medications: asa amlodipine Protocol: DOBUTAMINE Max HR: 136 BPM 90% of Pred: 151 BPM Max BP: 128/068 mmHG Max Work Load: 1.0 METS Pharmacologic stress test with Dobutamine infusion, max dose 20 mcg/kg/min, while pt kicked her legs in chair, wearing 2L O2 via NC at baseline, without anginal symptoms, with frequent PACs and brief atrial runs, longest 4 beats isolated PVCs, with normotensive response to injection. Nondiagnostic EKG for ischemia. Achieved heart rate 88% MPHR. Nuclear images pending. Test reviewed with Dr Muñoz Referred By: Adolfo Sow Overread By: KRISTINA RING
--- OUTSIDE RECORDS SUMMARY | 2024-10-22 09:27 | XMS_ITS | Clinical Summary ---
Author Organization Unknown Care Team Providers Care Draw Fire Operator Name Role Phone KIM ALVAREZ, ANYI Unavailable Unavailable LUCA RAMOS, CL Unavailable Unavailable Payers Payer Name Policy Type Policy Number Effective Date Expira tion Date MEDICARE - [facility] [id number] [facility] [id number] Problems Condition Name Condition Details Condition Category Status Onset Date Resolution Date Last Treatment Date Treating Clinician Comments EMPHYSEMA, UNSPECIFIED Active 2023-11 00:00: 00 ESSENTIAL (PRIMARY) HYPERTENSION Active 11-03 00:00: 00 OLD MYOCARDIAL INFARCTION Active 2023-11 00:00: 00 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 11-03 00:00: 00 DEPENDENCE ON SUPPLEMENTAL OXYGEN Active 11-03 00:00: 00 PERSONAL HISTORY OF PNEUMONIA (RECURRENT) Active 2023-11 00:00: 00 PERSONAL HISTORY OF MALIGNANT NEOPLASM OF LARGE INTESTINE Active 11-03 00:00: 00 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 Ordering Clinician Indication Dosage Frequency Signature (SIG) Comments Components albuterol sulfate HFA 90 mcg/actuati on aerosol inhaler 2023-11 0 00:00: 00 Yes [id number] 2 puff EVERY 4 HOURS 2 puff EVERY 4 HOURS (route: inhalation ) Med Classific ation: Respirato ry Therapy Agents amoxicillin 875 mg-potassiu m clavulanate 125 mg tablet 2023-11 0-13 00:00: 00 08-18 00:00 :00 No [id number] Per instruc tions Per instructio ns (route: oral) Med Classific ation: Anti-Infe ctive Agents amlodipine 5 mg tablet 9-24 00:00: 00 Yes [id number] Per instruc tions EVERY DAY Per instructio ns EVERY DAY (route: oral) Med Classific ation: Cardiovas cular Therapy Agents aspirin 81 mg tablet,nirav yed release 2023-1116 00:00: 00 Yes [id number] 1 tablet DAILY 1 tablet DAILY (route: oral) Med Classific ation: Hematolog ical Agents guaifenesin 100 mg/5 mL oral liquid 2023-1116 00:00: 00 Yes [id number] 5 mL EVERY 6 HOURS 5 mL EVERY 6 HOURS (route: oral) Med Classific ation: Respirato ry Therapy Agents OXYGEN 2023-11 00:00: 00 Yes [id number] 1-4 Liter O2 - CONTINUOUS 1-4 Liter O2 - CONTINUOUS (route: Oxygen) Med Classific ation: Medical Oxygen Vital Signs Vital Name Observation Time Observation Value Commen ts Temperature 2024-10-18 21:25:00.000 98 [degF] Pulse 2024-10-18 21:25:00.000 74 /min O2 Saturation (%) 2024-10-18 21:25:00.000 97 % Respirations 2024-10-18 21:25:00.000 18 /min Systolic Blood Pressure 2024-10-18 21:25:00.000 128 mm [Hg] Diastolic Blood Pressure 2024-10-18 21:25:00.000 74 mm [Hg] Plan of Treatment Planned Activity Planned Date Details Comments Future Scheduled Test SKILLED NU RSE TO EVALUATE PATIENT, IDENTIFY PRIMARY AND CO-MORBID CONDITIONS CODED PER CODING GUIDELINES, AND DEVELOP PATIENT SPECIFIC PLAN OF CARE THAT INCLUDES PATIENT GOAL FOR HOME HEALTH. [code = SKILLED NURSE TO EVALUATE PATIENT, IDENTIFY PRIMARY AND CO-MORBID CONDITIONS CODED PER CODING GUIDELINES, AND DEVELOP PATIENT SPECIFIC PLAN OF CARE THAT INCLUDES PATIENT GOAL FOR HOME HEALTH.] Future Scheduled Test SKILLED NU RSE TO REVIEW PATIENT MEDICATIONS. INSTRUCT PATIENT/CAREGIVER ON MONITORING OF EFFECTIVENESS, ADVERSE DRUG REACTIONS, SIDE EFFECTS OF ALL MEDICATIONS (PRESCRIPTION/-OTC), AND HOW AND WHEN TO REPORT PROBLEMS. [code = SKILLED NURSE TO REVIEW PATIENT MEDICATIONS. INSTRUCT PATIENT/CAREGIVER ON MONITORING OF EFFECTIVENESS, ADVERSE DRUG REACTIONS, SIDE EFFECTS OF ALL MEDICATIONS (PRESCRIPTION/-OTC), AND HOW AND WHEN TO REPORT PROBLEMS.] Future Scheduled Test OXYGEN VIA NASAL CANNULA 1-4 LITERS PRN SKILLED NURSE FOR O/A AND SKILLED TEACHING OF SAFE OXYGEN USE IN THE HOME. [code = OXYGEN VIA NASAL CANNULA 1-4 LITERS PRN SKILLED NURSE FOR O/A AND SKILLED TEACHING OF SAFE OXYGEN USE IN THE HOME.] Future Scheduled Test SKILLED NU RSE FOR O/A AND TEACHING RELATED TO LARGE INTESTINES/LUNGS CANCER INCLUDING SIGNS AND SYMPTOMS OF DISEASE PROGRESSION, TREATMENT, AND MANAGEMENT OF POTENTIAL SIDE EFFECTS. [code = SKILLED NURSE FOR O/A AND TEACHING RELATED TO LARGE INTESTINES/LUNGS CANCER INCLUDING SIGNS AND SYMPTOMS OF DISEASE PROGRESSION, TREATMENT, AND MANAGEMENT OF POTENTIAL SIDE EFFECTS.] Future Scheduled Test SKILLED NU RSE FOR O/A, TEACHING, AND MANAGEMENT OF NSTEMI. [code = SKILLED NURSE FOR O/A, TEACHING, AND MANAGEMENT OF NSTEMI.] Future Scheduled Test SKILLED NU RSE FOR O/A OF RESPIRATORY SYSTEM TO IDENTIFY CHANGES ASSOCIATED WITH EXACERBATION AND TO PROVIDE SKILLED TEACHING ON MANAGEMENT OF RESPIRATORY FAILURE WITH HYPOXIA, EMPHYSEMA, PNA DISEASE PROCESS. [code = SKILLED NURSE FOR O/A OF RESPIRATORY SYSTEM TO IDENTIFY CHANGES ASSOCIATED WITH EXACERBATION AND TO PROVIDE SKILLED TEACHING ON MANAGEMENT OF RESPIRATORY FAILURE WITH HYPOXIA, EMPHYSEMA, PNA DISEASE PROCESS.] Future Scheduled Test SKILLED NU RSE TO PROVIDE TEACHING ON SIGNS AND SYMPTOMS AND MANAGEMENT OF HYPERTENSION. [code = SKILLED NURSE TO PROVIDE TEACHING ON SIGNS AND SYMPTOMS AND MANAGEMENT OF HYPERTENSION.] Future Scheduled Test SKILLED NU RSE TO INSTRUCT PATIENT/CAREGIVER ON COPD TO INCLUDE TEACHING AND SELF-MANAGEMENT RELATED TO COPD DISEASE PROCESS, SIGNS AND SYMPTOMS, AND COMPLICATIONS. [code = SKILLED NURSE TO INSTRUCT PATIENT/CAREGIVER ON COPD TO INCLUDE TEACHING AND SELF-MANAGEMENT RELATED TO COPD DISEASE PROCESS, SIGNS AND SYMPTOMS, AND COMPLICATIONS.] Future Scheduled Test PATIENT MCKEON S A RISK OF HOSPITALIZATION AND ED USE. SKILLED NURSE TO ESTABLISH SUPPORT MEASURES TO MINIMIZE RISK OF HOSPITALIZATION AND ED USE, AND INSTRUCT PATIENT/CAREGIVER ON METHODS TO REDUCE AVOIDABLE HOSPITALIZATION AND ED USE. [code = PATIENT HAS A RISK OF HOSPITALIZATION AND ED USE. SKILLED NURSE TO ESTABLISH SUPPORT MEASURES TO MINIMIZE RISK OF HOSPITALIZATION AND ED USE, AND INSTRUCT PATIENT/CAREGIVER ON METHODS TO REDUCE AVOIDABLE HOSPITALIZATION AND ED USE.] Future Scheduled Test SKILLED NU RSE TO PROVIDE INSTRUCTION TO PATIENT/CAREGIVER RELATED TO DISCHARGE PLANNING. [code = SKILLED NURSE TO PROVIDE INSTRUCTION TO PATIENT/CAREGIVER RELATED TO DISCHARGE PLANNING.] Future Scheduled Test SKILLED NU RSE TO PERFORM ENVIRONMENTAL SAFETY RISK ASSESSMENT AND FALL RISK ASSESSMENT AND PROVIDE INSTRUCTION TO IMPLEMENT ENVIRONMENTAL SAFETY AND FALL PREVENTION STRATEGIES THROUGHOUT THE CERTIFICATION PERIOD. SKILLED NURSE WILL MAINTAIN SITUATIONAL AWARENESS AND WILL NOTIFY CLINICAL MACHINE UMBRELLA TIPPER AND PHYSICIAN/PROVIDER WITH ANY CHANGE IN CONDITION. [code = SKILLED NURSE TO PERFORM ENVIRONMENTAL SAFETY RISK ASSESSMENT AND FALL RISK ASSESSMENT AND PROVIDE INSTRUCTION TO IMPLEMENT ENVIRONMENTAL SAFETY AND FALL PREVENTION STRATEGIES THROUGHOUT THE CERTIFICATION PERIOD. SKILLED NURSE WILL MAINTAIN SITUATIONAL AWARENESS AND WILL NOTIFY CLINICAL MACHINE UMBRELLA TIPPER AND PHYSICIAN/PROVIDER WITH ANY CHANGE IN CONDITION.] Future Scheduled Test SKILLED NU RSE FOR OBSERVATION AND ASSESSMENT OF PATIENTS PAIN LEVEL AND EFFECTIVENESS OF PAIN MANAGEMENT REGIMEN. SKILLED NURSE TO INSTRUCT PATIENT/CAREGIVER REGARDING PHARMACOLOGIC AND NON-PHARMACOLOGIC PAIN CONTROL MEASURES. SKILLED NURSE TO REPORT TO PHYSICIAN IF PAIN IS UNCONTROLLED WITH CURRENT PAIN MANAGEMENT REGIMEN. [code = SKILLED NURSE FOR OBSERVATION AND ASSESSMENT OF PATIENTS PAIN LEVEL AND EFFECTIVENESS OF PAIN MANAGEMENT REGIMEN. SKILLED NURSE TO INSTRUCT PATIENT/CAREGIVER REGARDING PHARMACOLOGIC AND NON-PHARMACOLOGIC PAIN CONTROL MEASURES. SKILLED NURSE TO REPORT TO PHYSICIAN IF PAIN IS UNCONTROLLED WITH CURRENT PAIN MANAGEMENT REGIMEN.] Future Scheduled Test SKILLED NU RSE TO ASSESS PATIENT'S SKIN INTEGRITY AND INSTRUCT PATIENT/CAREGIVER ON MEASURES TO PREVENT PRESSURE ULCERS. [code = SKILLED NURSE TO ASSESS PATIENT'S SKIN INTEGRITY AND INSTRUCT PATIENT/CAREGIVER ON MEASURES TO PREVENT PRESSURE ULCERS.] Goal 2024-10-12 Patient Goal - DRINK MORE WA TER Goal Patient Goal - GET BETTER Goal Provider Goal - A PLAN OF CARE WILL BE ESTABLISHED THAT MEETS PATIENT'S [facility] NEEDS AND INCLUDES PATIENT GOAL FOR HOME HEALTH. Goal Provider Goal - PATIENT/CAREGIVER WILL VERBALIZE UNDERSTANDING OF EDUCATION PROVIDED ON MEDICATIONS BY THE END OF THE CERTIFICATION PERIOD. Goal Provider Goal - PATIENT/CAREGIVER WILL VERBALIZE/DEMONSTRATE UNDERSTANDING OF SAFE OXYGEN USE IN THE HOME THROUGHOUT THE EPISODE. Goal Provider Goal - PATIENT/CAREGIVER WILL VERBALIZE/DEMONSTRATE MANAGEMENT OF LARGE INTESTINES AND LUNGS CANCER/NEOPLASM DISEASE AND THE SIDE EFFECTS OF TREATMENTS DURING THIS EPISODE. Goal Provider Goal - PATIENT/CAREGIVER WILL VERBALIZE/DEMONSTRATE MANAGEMENT OF CARDIAC DISEASE PROCESS AND EXACERBATIONS WILL BE IDENTIFIED AND PROMPTLY REPORTED THROUGHOUT THE CERTIFICATION PERIOD. Goal Provider Goal - PATIENT/CAREGIVER WILL VERBALIZE/DEMONSTRATE MANAGEMENT OF RESPIRATORY DISEASE PROCESS. CHANGES IN RESPIRATORY STATUS WILL BE IDENTIFIED AND REPORTED TO PHYSICIAN FOR PROMPT INTERVENTION THROUGHOUT THE CERTIFICATION PERIOD. Goal Provider Goal - PATIENT/CAREGIVER WILL VERBALIZE SIGNS AND SYMPTOMS OF HYPERTENSION AND WILL BE ABLE TO DEMONSTRATE ABILITY TO MANAGE EXACERBATION BY END OF THE EPISODE. Goal Provider Goal - PATIENT/CAREGIVER WILL VERBALIZE/DEMONSTRATE KNOWLEDGE AND MANAGEMENT OF COPD BY END OF EPISODE. Goal Provider Goal - PATIENT WILL HAVE SUPPORT MEASURES ESTABLISHED TO PREVENT HOSPITALIZATION AND ED USE AND PATIENT/CAREGIVER WILL VERBALIZE/DEMONSTRATE METHODS TO REDUCE AVOIDABLE HOSPITALIZATION AND ED USE BY END OF EPISODE. Goal Provider Goal - PATIENT/CAREGIVER WILL VERBALIZE UNDERSTANDING OF DISCHARGE PLANNING INSTRUCTIONS BY DATE OF DISCHARGE. Goal Provider Goal - PATIENT/CAREGIVER WILL VERBALIZE/DEMONSTRATE EFFECTIVE ENVIRONMENTAL SAFETY AND FALL PREVENTION STRATEGIES, WILL REMAIN SAFE IN THE COMMUNITY, AND WILL BE FREE OF DANGER TO SELF AND OTHERS THROUGHOUT THE CERTIFICATION PERIOD. Goal Provider Goal - PATIENT/CAREGIVER WILL DEMONSTRATE UNDERSTANDING OF PHARMACOLOGIC AND NONPHARMACOLOGIC PAIN CONTROL MEASURES AND PATIENT WILL HAVE IMPROVEMENT IN PAIN INTERFERING WITH ACTIVITY EVIDENCED BY PAIN CONTROLLED AT LEVEL OF 7 OR LESS BY END OF CERTIFICATION PERIOD. Goal Provider Goal - PATIENT/CAREGIVER WILL VERBALIZE UNDERSTANDING OF PRESSURE ULCER PREVENTION BY END OF THE EPISODE. Progress Notes Progress Notes <paragraph>[Visit Date: 2023 by CL SEGOVIA RN]:</paragraph><paragraph>SNV ABNORMAL VITALS: WNL FALLS:NONE PHYSICAL ASSESSMENT FINDINGS: PT AWAKE AND ALERT VSS AFEBRILE REPORTS SOME FEELING MORE TIRED, THINK ITS THE CHEMO ENERGY CONSERING TECHNIQUES REVIEWED BREATHING EXERCISES REVIEWED. PT IN GOOD SPIRITS OVERALL. APPETITE OK DENIES PROBLEMS WITH BOWEL OR BLADDER. LUNGS DIM SPEAKING IN FULL SENTENCES NAD NOTED PT HAS SOBOE RECOVERS WELL. MEDICATION CHANGES: NONE HANDS ON CARE: ASSESSMENT TEACHING PATIENT/CAREGIVER TEACH BACK: VERBALIZED UNDERSTANDING NEXT APPOINTMENT: ONC THIS WEEK NEXT FRIDAY STENT PROCEDURE NEW ORDERS: N INSTRUCTED PATIENT AND CAREGIVER TO CALL [facility] WITH ANY QUESTIONS OR CHANGES IN CONDITION</paragraph> Encounters Start Date/Time End Date/Time Encounter Type Admission Type Attending Clinicians Care Facility Care Department Encounter ID Discharge Date Discharge Status Discharge Condition Discharge Reason Percent Goals Met 2024-08-18 00:00:00 2024-12-15 00:00:00 Outpatient RECERTIFIC ATION CL SEGOVIA [facility] [id number] 26.09
== END ==
LOC: HO.CARD 09:25
PROVIDERS: PCP Internal Medicine; Visit Provider Internal Medicine Cardiovascular Disease
DX: I21.4 Non-ST elevation (NSTEMI) myocardial infarction (principal); I10 Essential (primary) hypertension; J18.9 Pneumonia, unspecified organism; J96.01 Acute respiratory failure with hypoxia; N17.9 Acute kidney failure, unspecified
CPT/HCPCS: 78452; 93017; A9500; J1250

== ENCOUNTER → 2024-10-22 09:27 | Outpatient (BNV) | payer MEDICARE, SELFPAY | PROVIDERS: PCP Internal Medicine; Visit Provider Nurse Practitioner Family | DX: I49.1 Atrial premature depolarization (principal); I49.3 Ventricular premature depolarization | CPT/HCPCS: 78452; 93016; 93018 ==

== ENCOUNTER 2024-11-16 13:55 | Outpatient (REF) | payer MEDICARE, SELFPAY ==
--- OUTSIDE RECORDS SUMMARY | 2024-11-16 16:28 | XMS_ITS | Clinical Summary ---
Author Organization Unknown Care Team Providers Care Diamond Wheel Edger Name Role Phone KIM ALVAREZ, ANYI Unavailable Unavailable JANINA RN, ADMISSION NURSE, CARINA Unavail able Unavailable LUCA RN, CL Unavailable Unavailable JONAH MERRITT LPN, YODIT Unavailable Faviolavai lable Payers Payer Name Policy Type Policy Number Effective Date Expira tion Date MEDICARE - [facility] [facility] [id number] [facility] [id number] Problems Condition Name Condition Details Condition Category Status Onset Date Resolution Date Last Treatment Date Treating Clinician Comments EMPHYSEMA, UNSPECIFIED Active 2023-11 00:00: 00 ESSENTIAL (PRIMARY) HYPERTENSION Active 11-03 00:00: 00 OLD MYOCARDIAL INFARCTION Active 2023-11 00:00: 00 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 11-03 00:00: [...] HFA 90 mcg/actuati on aerosol inhaler 2023-11 00:00: 00 Yes [id number] 2 puff EVERY 4 HOURS 2 puff EVERY 4 HOURS (route: inhalation ) Med Classific ation: Respirato ry Therapy Agents amoxicillin 875 mg-potassiu m clavulanate 125 mg tablet 2023-11 00:00: 00 08-18 00:00 :00 No [id number] Per instruc tions Per instructio ns (route: oral) Med Classific ation: Anti-Infe ctive Agents amlodipine 5 mg tablet 07-27 00:00: 00 Yes [id number] Per instruc tions EVERY DAY Per instructio ns EVERY DAY (route: oral) Med Classific ation: Cardiovas cular Therapy Agents aspirin 81 mg tablet,nirav yed release 2023-11 00:00: 00 Yes [id number] 1 tablet DAILY 1 tablet DAILY (route: oral) Med Classific ation: Hematolog ical Agents guaifenesin 100 mg/5 mL oral liquid 2023-11 00:00: 00 Yes [id number] 5 mL EVERY 6 HOURS 5 mL EVERY 6 HOURS (route: oral) Med Classific ation: Respirato ry Therapy Agents OXYGEN 2023-11 00:00: 00 Yes [id number] 1-4 Liter O2 - CONTINUOUS 1-4 Liter O2 - CONTINUOUS (route: Oxygen) Med Classific ation: Medical Oxygen capecitabin e 150 mg tablet 11-08 00:00: 00 Yes [id number] 2 tablet 2 TIMES DAILY 2 tablet 2 TIMES DAILY (route: oral) Med Classific ation: Antineopl astics capecitabin e 500 mg tablet 11-08 00:00: 00 Yes [id number] 2 tablet 2 TIMES DAILY 2 tablet 2 TIMES DAILY (route: oral) Med Classific ation: Antineopl astics Vital Signs Vital Name Observation Time Observation Value Commen ts Temperature 2024-11-15 14:39:00.000 97 [degF] Temperature 2024-11-08 10:03:00.000 98 [degF] Temperature 2024-11-01 11:44:00.000 97.3 [degF] Temperature 2024-10-26 11:52:00.000 97.7 [degF] Temperature 2024-10-18 21:25:00.000 98 [degF] Pulse 2024-11-15 14:39:00.000 70 /min Pulse 2024-11-08 10:03:00.000 76 /min Pulse 2024-11-01 11:44:00.000 78 /min Pulse 2024-10-26 11:52:00.000 80 /min Pulse 2024-10-18 21:25:00.000 74 /min O2 Saturation (%) 2024-11-15 14:39:00.000 95 % O2 Saturation (%) 2024-11-08 10:03:00.000 96 % O2 Saturation (%) 2024-11-01 11:44:00.000 98 % O2 Saturation (%) 2024-10-26 11:52:00.000 97 % O2 Saturation (%) 2024-10-18 21:25:00.000 97 % Respirations 2024-11-15 14:39:00.000 18 /min Respirations 2024-11-08 10:03:00.000 20 /min Respirations 2024-10-26 11:52:00.000 18 /min Respirations 2024-10-18 21:25:00.000 18 /min Systolic Blood Pressure 2024-11-15 14:39:00.000 134 mm [Hg] Systolic Blood Pressure 2024-11-08 10:03:00.000 122 mm [Hg] Systolic Blood Pressure 2024-11-01 11:44:00.000 118 mm [Hg] Systolic Blood Pressure 2024-10-26 11:52:00.000 120 mm [Hg] Systolic Blood Pressure 2024-10-18 21:25:00.000 128 mm [Hg] Diastolic Blood Pressure 2024-11-15 14:39:00.000 70 mm [Hg] Diastolic Blood Pressure 2024-11-08 10:03:00.000 64 mm [Hg] Diastolic Blood Pressure 2024-11-01 11:44:00.000 70 mm [Hg] Diastolic Blood Pressure 2024-10-26 11:52:00.000 62 mm [Hg] Diastolic Blood Pressure 2024-10-18 21:25:00.000 [...] MAINTAIN SITUATIONAL AWARENESS AND WILL NOTIFY CLINICAL ASSEMBLY SUPERVISOR AND PHYSICIAN/PROVIDER WITH ANY CHANGE IN CONDITION. [code = SKILLED NURSE TO PERFORM ENVIRONMENTAL SAFETY RISK ASSESSMENT AND FALL RISK ASSESSMENT AND PROVIDE INSTRUCTION TO IMPLEMENT ENVIRONMENTAL SAFETY AND FALL PREVENTION STRATEGIES THROUGHOUT THE CERTIFICATION PERIOD. SKILLED NURSE WILL MAINTAIN SITUATIONAL AWARENESS AND WILL NOTIFY CLINICAL ASSEMBLY SUPERVISOR AND PHYSICIAN/PROVIDER WITH ANY CHANGE IN CONDITION.] [...] CARE WILL BE ESTABLISHED THAT MEETS PATIENT'S PRISON NEEDS AND INCLUDES PATIENT GOAL FOR HOME [...] EPISODE. Progress Notes Progress Notes <paragraph>[Visit Date: 2024 by CL SEGOVIA RN]:</paragraph><paragraph>SNV ABNORMAL VITALS: WNL FALLS: PHYSICAL ASSESSMENT FINDINGS: PT AWAKE AND ALERT VSS AFEBRILE LUNGS DIM THROUGHOUT SPEAKING IN FULL SENTENCES NAD NOTED ABD SNT POS BS DENIES PROBLEMS WITH BOWEL. COMPLAINTS OF FREQUENCY W URINATION CALL TO PCP ORDER FOR UA SENT TO [facility]. PT REPORTS SHE WILL GO TOMORROW BEFORE HER RADIATION TX. PT HAS [place] RADIATION TX THUSFAR. NO ADVERSE SIDE EFFECTS. ENERGY CONSERING TECHNIQUES REVIEWED MEDICATION CHANGES: NONE HANDS ON CARE: ASSESSMENT TEACHING ENERGY CONSERVING TECHNIQUES PATIENT/CAREGIVER TEACH BACK: VERBALIZED UNDERSTANDING NEXT APPOINTMENT: RADIATION NEW ORDERS: NONE INSTRUCTED PATIENT AND CAREGIVER TO CALL [facility] WITH ANY QUESTIONS OR CHANGES IN CONDITION</paragraph> Encounters Start Date/Time End Date/Time Encounter Type Admission Type Attending [facility] Care Department Encounter ID Discharge Date Discharge Status Discharge Condition Discharge Reason Percent Goals Met 2024-08-18 00:00:00 2024-12-15 00:00:00 Outpatient RECERTIFIC ATION CL SEGOVIA [facility] [id number] 52.17
--- OUTSIDE RECORDS SUMMARY | 2024-11-16 16:28 | XMS_ITS | Clinical Summary ---
Author Organization Unknown Care Team Providers Care [facility] Name Role Phone KIM ALVAREZ, ANYI Unavailable Unavailable JANINA RN, ADMISSION NURSE, CARINA Unavail able Unavailable LUCA RN, CL Unavailable Unavailable JONAH MERRITT LPN, YODIT Unavailable Faviolavai lable Payers Payer Name Policy Type Policy Number Effective Date Expira tion Date MEDICARE - [facility] [facility] [id number] [facility] [id number] Problems Condition Name Condition Details Condition Category Status Onset Date Resolution Date Last Treatment Date Treating Clinician Comments EMPHYSEMA, UNSPECIFIED Active 2023-11 00:00: 00 ESSENTIAL (PRIMARY) HYPERTENSION Active 11-03 00:00: 00 OLD MYOCARDIAL INFARCTION Active 2023-11 00:00: 00 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 Active 11-03 00:00: [...] on aerosol inhaler 2023-11 00:00: 00 Yes [id number] 2 puff EVERY 4 HOURS 2 puff EVERY 4 HOURS (route: inhalation ) Med Classific ation: Respirato ry Therapy Agents amoxicillin 875 mg-potassiu m clavulanate 125 mg tablet 2023-11 00:00: 00 08-18 00:00 :00 No [id number] Per instruc tions Per instructio ns (route: oral) Med Classific ation: Anti-Infe ctive Agents amlodipine 5 mg tablet 07-27 00:00: 00 Yes [id number] Per instruc tions EVERY DAY Per instructio ns EVERY DAY (route: oral) Med Classific ation: Cardiovas cular Therapy Agents aspirin 81 mg tablet,nirav yed release 2023-11 00:00: 00 Yes [id number] 1 tablet DAILY 1 tablet DAILY (route: oral) Med Classific ation: Hematolog ical Agents guaifenesin 100 mg/5 mL oral liquid 2023-11 00:00: 00 Yes [id number] 5 mL EVERY 6 HOURS 5 mL EVERY 6 HOURS (route: oral) Med Classific ation: Respirato ry Therapy Agents OXYGEN 2023-11 00:00: 00 Yes [id number] 1-4 Liter O2 - CONTINUOUS 1-4 Liter O2 - CONTINUOUS (route: Oxygen) Med Classific ation: Medical Oxygen capecitabin e 150 mg tablet 11-08 00:00: 00 Yes [id number] 2 tablet 2 TIMES DAILY 2 tablet 2 TIMES DAILY (route: oral) Med Classific ation: Antineopl astics capecitabin e 500 mg tablet 11-08 00:00: 00 Yes [id number] 2 tablet 2 TIMES DAILY 2 tablet [...] MAINTAIN SITUATIONAL AWARENESS AND WILL NOTIFY CLINICAL DROSSER AND PHYSICIAN/PROVIDER WITH ANY CHANGE IN CONDITION. [code = SKILLED NURSE TO PERFORM ENVIRONMENTAL SAFETY RISK ASSESSMENT AND FALL RISK ASSESSMENT AND PROVIDE INSTRUCTION TO IMPLEMENT ENVIRONMENTAL SAFETY AND FALL PREVENTION STRATEGIES THROUGHOUT THE CERTIFICATION PERIOD. SKILLED NURSE WILL MAINTAIN SITUATIONAL AWARENESS AND WILL NOTIFY CLINICAL DROSSER AND PHYSICIAN/PROVIDER WITH ANY CHANGE IN CONDITION.] [...] CARE WILL BE ESTABLISHED THAT MEETS PATIENT'S MCFP NEEDS AND INCLUDES PATIENT GOAL FOR HOME [...] TO PCP ORDER FOR UA SENT TO [facility]. PT REPORTS SHE WILL GO TOMORROW [...] End Date/Time Encounter Type Admission Type Attending [facility] Care Department Encounter ID Discharge Date Discharge Status Discharge Condition Discharge Reason Percent Goals Met 2024-08-18 00:00:00 2024-12-15 00:00:00 Outpatient RECERTIFIC ATION CL [facility] [id number] 52.17
== END 2024-11-16 13:56 | disposition home or self-care (01) ==
LOC: HO.HMGCLDS 13:55
PROVIDERS: PCP Internal Medicine; Visit Provider Internal Medicine
DX: Z13.89 Encounter for screening for other disorder (principal)

== ENCOUNTER 2024-11-17 08:10 | Outpatient (REF) | payer MEDICARE, SELFPAY ==
--- OUTSIDE RECORDS SUMMARY | 2024-11-17 08:53 | XMS_ITS | Clinical Summary ---
Author Organization Unknown Care Team Providers Care P[employer] Surfacing Labourer Name Role Phone KIM ALVAREZ, ANYI Unavailable Unavailable JANINA RN, ADMISSION NURSE, CARINA Unavail able Unavailable LUCA RN, CL Unavailable Unavailable JONAH MERRITT LPN, YODIT Unavailable Unavai lable Payers Payer Name Policy Type Policy Number Effective Date Expira tion Date MEDICARE - [facility]/[place] - [facility] [id number] [facility] [id number] Problems Condition Name Condition Details Condition Category Status Onset Date Resolution Date Last Treatment Date Treating Clinician Comments EMPHYSEMA, UNSPECIFIED Active 2023-11 00:00: 00 ESSENTIAL (PRIMARY) HYPERTENSION Active 11-03 00:00: 00 OLD MYOCARDIAL INFARCTION Active 2023-11 00:00: 00 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 Active 11-03 00:00: [...] on aerosol inhaler 2023-11 00:00: 00 Yes [id number] 2 puff EVERY 4 HOURS 2 puff EVERY 4 HOURS (route: inhalation ) Med Classific ation: Respirato ry Therapy Agents amoxicillin 875 mg-potassiu m clavulanate 125 mg tablet 2023-11 00:00: 00 08-18 00:00 :00 No [id number] Per instruc tions Per instructio ns (route: oral) Med Classific ation: Anti-Infe ctive Agents amlodipine 5 mg tablet 07-27 00:00: 00 Yes [id number] Per instruc tions EVERY DAY Per instructio ns EVERY DAY (route: oral) Med Classific ation: Cardiovas cular Therapy Agents aspirin 81 mg tablet,nirav yed release 2023-11 00:00: 00 Yes [id number] 1 tablet DAILY 1 tablet DAILY (route: oral) Med Classific ation: Hematolog ical Agents guaifenesin 100 mg/5 mL oral liquid 2023-11 00:00: 00 Yes [id number] 5 mL EVERY 6 HOURS 5 mL EVERY 6 HOURS (route: oral) Med Classific ation: Respirato ry Therapy Agents OXYGEN 2023-11 00:00: 00 Yes [id number] 1-4 Liter O2 - CONTINUOUS 1-4 Liter O2 - CONTINUOUS (route: Oxygen) Med Classific ation: Medical Oxygen capecitabin e 150 mg tablet 11-08 00:00: 00 Yes [id number] 2 tablet 2 TIMES DAILY 2 tablet 2 TIMES DAILY (route: oral) Med Classific ation: Antineopl astics capecitabin e 500 mg tablet 11-08 00:00: 00 Yes [id number] 2 tablet 2 TIMES DAILY 2 tablet [...] MAINTAIN SITUATIONAL AWARENESS AND WILL NOTIFY CLINICAL COIL CONNECTOR AND PHYSICIAN/PROVIDER WITH ANY CHANGE IN CONDITION. [code = SKILLED NURSE TO PERFORM ENVIRONMENTAL SAFETY RISK ASSESSMENT AND FALL RISK ASSESSMENT AND PROVIDE INSTRUCTION TO IMPLEMENT ENVIRONMENTAL SAFETY AND FALL PREVENTION STRATEGIES THROUGHOUT THE CERTIFICATION PERIOD. SKILLED NURSE WILL MAINTAIN SITUATIONAL AWARENESS AND WILL NOTIFY CLINICAL COIL CONNECTOR AND PHYSICIAN/PROVIDER WITH ANY CHANGE IN CONDITION.] [...] CARE WILL BE ESTABLISHED THAT MEETS PATIENT'S FPC NEEDS AND INCLUDES PATIENT GOAL FOR HOME [...] TO PCP ORDER FOR UA SENT TO [facility] [place] [place] [facility]. PT REPORTS SHE WILL GO TOMORROW [...] End Date/Time Encounter Type Admission Type Attending [facility] Care Department Encounter ID Discharge Date Discharge Status Discharge Condition Discharge Reason Percent Goals Met 2024-08-18 00:00:00 2024-12-15 00:00:00 Outpatient RECERTIFIC ATION CL [facility] [id number] 52.17
--- OUTSIDE RECORDS SUMMARY | 2024-11-17 08:53 | XMS_ITS | Clinical Summary ---
Author Organization Unknown Care Team Providers Care Casino Cashier Manager Name Role Phone KIM ALVAREZ, ANYI Unavailable Unavailable JANINA RN, ADMISSION NURSE, CARINA Unavail able Unavailable LUCA RN, CL Unavailable Unavailable JONAH MERRITT LPN, YODIT Unavailable Unavai lable Payers Payer Name Policy Type Policy Number Effective Date Expira tion Date MEDICARE - [facility]/[place] - [facility] [id number] [facility] [id number] Problems Condition Name Condition Details Condition Category Status Onset Date Resolution Date Last Treatment Date Treating Clinician Comments EMPHYSEMA, UNSPECIFIED Active 2023-11 00:00: 00 ESSENTIAL (PRIMARY) HYPERTENSION Active 11-03 00:00: 00 OLD MYOCARDIAL INFARCTION Active 2023-11 00:00: 00 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 11-03 00:00: [...] on aerosol inhaler 2023-11 00:00: 00 Yes [id number] 2 puff EVERY 4 HOURS 2 puff EVERY 4 HOURS (route: inhalation ) Med Classific ation: Respirato ry Therapy Agents amoxicillin 875 mg-potassiu m clavulanate 125 mg tablet 2023-11 00:00: 00 08-18 00:00 :00 No [id number] Per instruc tions Per instructio ns (route: oral) Med Classific ation: Anti-Infe ctive Agents amlodipine 5 mg tablet 07-27 00:00: 00 Yes [id number] Per instruc tions EVERY DAY Per instructio ns EVERY DAY (route: oral) Med Classific ation: Cardiovas cular Therapy Agents aspirin 81 mg tablet,nirav yed release 2023-11 00:00: 00 Yes [id number] 1 tablet DAILY 1 tablet DAILY (route: oral) Med Classific ation: Hematolog ical Agents guaifenesin 100 mg/5 mL oral liquid 2023-11 00:00: 00 Yes [id number] 5 mL EVERY 6 HOURS 5 mL EVERY 6 HOURS (route: oral) Med Classific ation: Respirato ry Therapy Agents OXYGEN 2023-11 00:00: 00 Yes [id number] 1-4 Liter O2 - CONTINUOUS 1-4 Liter O2 - CONTINUOUS (route: Oxygen) Med Classific ation: Medical Oxygen capecitabin e 150 mg tablet 11-08 00:00: 00 Yes [id number] 2 tablet 2 TIMES DAILY 2 tablet 2 TIMES DAILY (route: oral) Med Classific ation: Antineopl astics capecitabin e 500 mg tablet 11-08 00:00: 00 Yes [id number] 2 tablet 2 TIMES DAILY 2 tablet [...] MAINTAIN SITUATIONAL AWARENESS AND WILL NOTIFY CLINICAL RADIATION CONTROL WORKER AND PHYSICIAN/PROVIDER WITH ANY CHANGE IN CONDITION. [code = SKILLED NURSE TO PERFORM ENVIRONMENTAL SAFETY RISK ASSESSMENT AND FALL RISK ASSESSMENT AND PROVIDE INSTRUCTION TO IMPLEMENT ENVIRONMENTAL SAFETY AND FALL PREVENTION STRATEGIES THROUGHOUT THE CERTIFICATION PERIOD. SKILLED NURSE WILL MAINTAIN SITUATIONAL AWARENESS AND WILL NOTIFY CLINICAL RADIATION CONTROL WORKER AND PHYSICIAN/PROVIDER WITH ANY CHANGE IN CONDITION.] [...] CARE WILL BE ESTABLISHED THAT MEETS PATIENT'S PENITENTIARY NEEDS AND INCLUDES PATIENT GOAL FOR HOME [...] TO PCP ORDER FOR UA SENT TO [facility]. PT REPORTS SHE WILL GO TOMORROW [...] End Date/Time Encounter Type Admission Type Attending [facility] Care Department Encounter ID Discharge Date Discharge Status Discharge Condition Discharge Reason Percent Goals Met 2024-08-18 00:00:00 2024-12-15 00:00:00 Outpatient RECERTIFIC ATION CL [facility] [id number] 52.17
[2024-11-17 10:04] LABS: Appearance Urine Turbid; Color Urine Yellow; Glucose Urine UA Negative (Negative); Leukocyte Esterase Urine Large (3+) (Negative); Nitrite Urine Negative (Negative); UMIC TRIGGER UACC YES; Urine Blood Large (3+) (Negative); Urine Ketones Negative (Negative); Urine Protein 300 (3+) mg/dL (Neg-Trace)
[2024-11-17 10:15] LABS: Bacteria Urine 1+ (None Seen); RBC Urine >20 /HPF (0-2); Squamous Epithelial Cell Urine 0-2 /HPF (0-2); UACC Culture Trigger YES; WBC Urine >50 /HPF (0-5)
== END 2024-11-17 08:11 | disposition home or self-care (01) ==
LOC: HO.HMGCLNP 08:10
PROVIDERS: PCP Internal Medicine; Visit Provider Internal Medicine
DX: Z13.89 Encounter for screening for other disorder (principal)
CPT/HCPCS: 81001; 87086; 87088; 87186

== ENCOUNTER 2024-11-29 08:46 | Outpatient (AMB) | payer MEDICARE, SELFPAY ==
[2024-11-29 08:54] VITALS: BP 120/56; PULSE 76; BMI 21.7
--- NOTE | 2024-11-29 08:54 | MHC.OFFVIS ---
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 This showed normal myocardial perfusion. She was recently admitted with acute hypoxemic respiratory failure related to pneumonia and COPD exacerbation and subsequently had NSTEMI. She is currently undergoing radiation chemotherapy for recurrent colon cancer. She has tolerating this well. She has no obvious cardiac symptoms with no exertional chest pain. Continues to have exertional shortness of breath. [facility] Medical History Hypertension Ureteral stent present Lung cancer Cancer of colon with rectum Surgical History Hx of appendectomy Hx of tonsillectomy Family History (Updated 11/29/24 @ 09:01 by Daphnie Medina CMA) Father Colon cancer Heart attack Social History Household Members: [facility] Do you presently have visiting nurse or other home services: No Alcohol intake: never Patient Tobacco Use Status: Former Tobacco user Tobacco use type: Cigarette Second Hand Smoke Exposure: No service: No Current occupational status: disabled Review of Systems Const Denies chills, Denies fatigue, Denies fever(s), Denies weight gain and Denies weight loss ENT Denies dizziness Card Denies chest pain, Denies leg edema, Denies lightheadedness, Denies palpitations, Denies dyspnea on exertion, Denies orthopnea and Denies other Resp Denies cough and Denies dyspnea on exertion GI Denies hematochezia and Denies change in stool character Musc Denies abnormal gait, Denies muscle weakness, Denies numbness, Denies radiating pain into limb and Denies tingling Neuro Denies abnormal gait, Denies dizziness, Denies numbness and Denies tingling Endo Denies fatigue and Denies palpitations Physical Exam Vital Signs: Last Vital Signs Pulse 76 11/29/24 08:54 BP 120/56 L 11/29/24 08:54 BMI result Body Mass Index 21.7 Const General: cooperative, comfortable, no acute distress, alert, awake and Physically active Nutritional Appearance: thin Orientation/consciousness: patient oriented x3 Neck Neck: Yes trachea midline, Yes supple and Yes no JVD Resp Effort & Inspection: normal respiratory effort Auscultation: no rales, no wheezes and diminished lung sounds Cardio Jugular venous distension: no JVD Rate: regular rate Rhythm: regular rhythm Heart sounds: S1 normal heart sound present, S2 normal heart sound present, no click, no gallops and no murmurs GI Auscultation: normal bowel sounds Skin General skin exam: other (Diffuse maculopapular lesions and dry skin) Neuro General: patient oriented x3 Assessment & Plan Assessment & Plan (1) Subsequent non-ST elevation (NSTEMI) myocardial infarction: Code(s): I22.2 - Subsequent non-ST elevation (NSTEMI) myocardial infarction Plan: Patient having NSTEMI in the setting of severe hypoxemic respiratory failure most likely related to hypoxemia. She has no significant evidence of myocardial ischemia by recent myocardial perfusion imaging. Discussed with her about findings of the stress test. No further workup is indicated. Continue aggressive risk factor modification with amlodipine therapy. Target goal LDL less than 100 mg/dL. No further cardiac workup is indicated at this point time. Continue management of COPD as well as her current cancer as well as supportive care. Will follow up in the clinic if need be. Thank you for allowing me to partake in his care Medications: Discontinued albuterol sulfate 90 mcg/actuation (Ventolin HFA) Discontinued Reason: Patient no longer taking 2 puffs inhalation RQ4H PRN 1 g 2RF Shortness Of Breath/Wheezing amoxicillin-pot clavulanate 875-125 mg Discontinued Reason: Patient no longer taking 1 tab PO Q12H 4 tabs 0RF aspirin Discontinued Reason: Patient no longer taking 81 mg PO DAILY 180 tabs 0RF guaifenesin Discontinued Reason: Patient no longer taking 100 mg (5 mL) PO Q6H PRN 1,000 mL 0RF Cough Coding Level of Care Code Est Pt Level 3 (22544) Diagnoses Subsequent non-ST elevation (NSTEMI) myocardial infarction I22.2
--- OUTSIDE RECORDS SUMMARY | 2024-11-29 12:56 | XMS_ITS | Clinical Summary ---
Author Organization Unknown Care Team Providers Care Occ Therapist Name Role Phone KIM ALVAREZ, ANYI Unavailable Unavailable JANINA RN, ADMISSION NURSE, CARINA Unavail able Unavailable LUCA RN, CL Unavailable Unavailable JONAH MERRITT LPN, YODIT Unavailable Faviolavai lable Payers Payer Name Policy Type Policy Number Effective Date Expira tion Date MEDICARE - [facility]/[place] - [facility] [id number] [facility] [id number] Problems Condition Name Condition Details Condition Category Status Onset Date Resolution Date Last Treatment Date Treating Clinician Comments EMPHYSEMA, UNSPECIFIED Active 2023-11 00:00: 00 ESSENTIAL (PRIMARY) HYPERTENSION Active 11-03 00:00: 00 OLD MYOCARDIAL INFARCTION Active 2023-11 00:00: 00 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 Active 11-03 00:00: [...] on aerosol inhaler 2023-11 00:00: 00 Yes [id number] 2 puff EVERY 4 HOURS 2 puff EVERY 4 HOURS (route: inhalation ) Med Classific ation: Respirato ry Therapy Agents amoxicillin 875 mg-potassiu m clavulanate 125 mg tablet 2023-11 00:00: 00 08-18 00:00 :00 No [id number] Per instruc tions Per instructio ns (route: oral) Med Classific ation: Anti-Infe ctive Agents amlodipine 5 mg tablet 07-27 00:00: 00 Yes [id number] Per instruc tions EVERY DAY Per instructio ns EVERY DAY (route: oral) Med Classific ation: Cardiovas cular Therapy Agents aspirin 81 mg tablet,nirav yed release 2023-11 00:00: 00 Yes [id number] 1 tablet DAILY 1 tablet DAILY (route: oral) Med Classific ation: Hematolog ical Agents guaifenesin 100 mg/5 mL oral liquid 2023-11 00:00: 00 Yes [id number] 5 mL EVERY 6 HOURS 5 mL EVERY 6 HOURS (route: oral) Med Classific ation: Respirato ry Therapy Agents OXYGEN 2023-11 00:00: 00 Yes [id number] 1-4 Liter O2 - CONTINUOUS 1-4 Liter O2 - CONTINUOUS (route: Oxygen) Med Classific ation: Medical Oxygen capecitabin e 150 mg tablet 11-08 00:00: 00 Yes [id number] 2 tablet 2 TIMES DAILY 2 tablet 2 TIMES DAILY (route: oral) Med Classific ation: Antineopl astics capecitabin e 500 mg tablet 11-08 00:00: 00 Yes [id number] 2 tablet 2 TIMES DAILY 2 tablet 2 TIMES DAILY (route: oral) Med Classific ation: Antineopl astics nitrofurant oin monohydrate /macrocryst als 100 mg capsule 11-18 00:00: 00 11-25 23:59 :00 No [id number] 1 capsule 3 TIMES DAILY 1 capsule 3 TIMES DAILY (route: oral) Med Classific ation: Genitouri nary Therapy Vital Signs Vital Name Observation Time Observation Value Commen ts Temperature 2024-11-22 09:11:00.000 97.6 [degF] Temperature 2024-11-15 14:39:00.000 97 [degF] Temperature 2024-11-08 10:03:00.000 98 [degF] Temperature 2024-11-01 11:44:00.000 97.3 [degF] Temperature 2024-10-26 11:52:00.000 97.7 [degF] Temperature 2024-10-18 21:25:00.000 98 [degF] Pulse 2024-11-22 09:11:00.000 80 /min Pulse 2024-11-15 14:39:00.000 70 /min Pulse 2024-11-08 10:03:00.000 76 /min Pulse 2024-11-01 11:44:00.000 78 /min Pulse 2024-10-26 11:52:00.000 80 /min Pulse 2024-10-18 21:25:00.000 74 /min O2 Saturation (%) 2024-11-22 09:11:00.000 99 % O2 Saturation (%) 2024-11-15 14:39:00.000 95 % O2 Saturation (%) 2024-11-08 10:03:00.000 96 % O2 Saturation (%) 2024-11-01 11:44:00.000 98 % O2 Saturation (%) 2024-10-26 11:52:00.000 97 % O2 Saturation (%) 2024-10-18 21:25:00.000 97 % Respirations 2024-11-22 09:11:00.000 18 /min Respirations 2024-11-15 14:39:00.000 18 /min Respirations 2024-11-08 10:03:00.000 20 /min Respirations 2024-10-26 11:52:00.000 18 /min Respirations 2024-10-18 21:25:00.000 18 /min Systolic Blood Pressure 2024-11-22 09:11:00.000 120 mm [Hg] Systolic Blood Pressure 2024-11-15 14:39:00.000 134 mm [Hg] Systolic Blood Pressure 2024-11-08 10:03:00.000 122 mm [Hg] Systolic Blood Pressure 2024-11-01 11:44:00.000 118 mm [Hg] Systolic Blood Pressure 2024-10-26 11:52:00.000 120 mm [Hg] Systolic Blood Pressure 2024-10-18 21:25:00.000 128 mm [Hg] Diastolic Blood Pressure 2024-11-22 09:11:00.000 70 mm [Hg] Diastolic Blood Pressure 2024-11-15 14:39:00.000 [...] MAINTAIN SITUATIONAL AWARENESS AND WILL NOTIFY CLINICAL FIRER LOCOMOTIVE AND PHYSICIAN/PROVIDER WITH ANY CHANGE IN CONDITION. [code = SKILLED NURSE TO PERFORM ENVIRONMENTAL SAFETY RISK ASSESSMENT AND FALL RISK ASSESSMENT AND PROVIDE INSTRUCTION TO IMPLEMENT ENVIRONMENTAL SAFETY AND FALL PREVENTION STRATEGIES THROUGHOUT THE CERTIFICATION PERIOD. SKILLED NURSE WILL MAINTAIN SITUATIONAL AWARENESS AND WILL NOTIFY CLINICAL FIRER LOCOMOTIVE AND PHYSICIAN/PROVIDER WITH ANY CHANGE IN CONDITION.] [...] CARE WILL BE ESTABLISHED THAT MEETS PATIENT'S RESIDENTIAL NEEDS AND INCLUDES PATIENT GOAL FOR HOME [...] ULCER PREVENTION BY END OF THE EPISODE. Encounters Start Date/Time End Date/Time Encounter Type Admission Type Attending [facility] Facility Care Department Encounter ID Discharge Date Discharge Status Discharge Condition Discharge Reason Percent Goals Met 2024-08-18 00:00:00 2024-12-15 00:00:00 Outpatient RECERTIFIC ATION CL [facility] [id number] 56.52
--- OUTSIDE RECORDS SUMMARY | 2024-11-29 12:56 | XMS_ITS | Clinical Summary ---
Author Organization Unknown Care Team Providers Care [employer] Name Role Phone KIM ALVAREZ, ANYI Unavailable Unavailable JANINA RN, ADMISSION NURSE, CARINA Unavail able Unavailable LUCA RN, CL Unavailable Unavailable JONAH MERRITT LPN, YODIT Unavailable Faviolavai lable Payers Payer Name Policy Type Policy Number Effective Date Expira tion Date MEDICARE - [facility]/[place] - [facility] [id number] [facility] [id number] Problems Condition Name Condition Details Condition Category Status Onset Date Resolution Date Last Treatment Date Treating Clinician Comments EMPHYSEMA, UNSPECIFIED Active 2023-11 00:00: 00 ESSENTIAL (PRIMARY) HYPERTENSION Active 11-03 00:00: 00 OLD MYOCARDIAL INFARCTION Active 2023-11 00:00: 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 11-03 00:00: [...] on aerosol inhaler 2023-11 00:00: 00 Yes [id number] 2 puff EVERY 4 HOURS 2 puff EVERY 4 HOURS (route: inhalation ) Med Classific ation: Respirato ry Therapy Agents amoxicillin 875 mg-potassiu m clavulanate 125 mg tablet 2023-11 00:00: 00 08-18 00:00 :00 No [id number] Per instruc tions Per instructio ns (route: oral) Med Classific ation: Anti-Infe ctive Agents amlodipine 5 mg tablet 07-27 00:00: 00 Yes [id number] Per instruc tions EVERY DAY Per instructio ns EVERY DAY (route: oral) Med Classific ation: Cardiovas cular Therapy Agents aspirin 81 mg tablet,nirav yed release 2023-11 00:00: 00 Yes [id number] 1 tablet DAILY 1 tablet DAILY (route: oral) Med Classific ation: Hematolog ical Agents guaifenesin 100 mg/5 mL oral liquid 2023-11 00:00: 00 Yes [id number] 5 mL EVERY 6 HOURS 5 mL EVERY 6 HOURS (route: oral) Med Classific ation: Respirato ry Therapy Agents OXYGEN 2023-11 00:00: 00 Yes [id number] 1-4 Liter O2 - CONTINUOUS 1-4 Liter O2 - CONTINUOUS (route: Oxygen) Med Classific ation: Medical Oxygen capecitabin e 150 mg tablet 11-08 00:00: 00 Yes [id number] 2 tablet 2 TIMES DAILY 2 tablet 2 TIMES DAILY (route: oral) Med Classific ation: Antineopl astics capecitabin e 500 mg tablet 11-08 00:00: 00 Yes [id number] 2 tablet 2 TIMES DAILY 2 tablet 2 TIMES DAILY (route: oral) Med Classific ation: Antineopl astics nitrofurant oin monohydrate /macrocryst als 100 mg capsule 11-18 00:00: 00 11-25 23:59 :00 No [id number] 1 capsule 3 TIMES DAILY 1 capsule [...] MAINTAIN SITUATIONAL AWARENESS AND WILL NOTIFY CLINICAL DIGITAL MARKETING PROJECT MANAGER AND PHYSICIAN/PROVIDER WITH ANY CHANGE IN CONDITION. [code = SKILLED NURSE TO PERFORM ENVIRONMENTAL SAFETY RISK ASSESSMENT AND FALL RISK ASSESSMENT AND PROVIDE INSTRUCTION TO IMPLEMENT ENVIRONMENTAL SAFETY AND FALL PREVENTION STRATEGIES THROUGHOUT THE CERTIFICATION PERIOD. SKILLED NURSE WILL MAINTAIN SITUATIONAL AWARENESS AND WILL NOTIFY CLINICAL DIGITAL MARKETING PROJECT MANAGER AND PHYSICIAN/PROVIDER WITH ANY CHANGE IN CONDITION.] [...] CARE WILL BE ESTABLISHED THAT MEETS PATIENT'S GROUP HOME NEEDS AND INCLUDES PATIENT GOAL FOR HOME [...] Encounter Type Admission Type Attending [facility] Facility Care Department Encounter ID Discharge Date Discharge Status Discharge Condition Discharge Reason Percent Goals Met 2024-08-18 00:00:00 2024-12-15 00:00:00 Outpatient RECERTIFIC ATION CL [facility] [id number] 56.52
== END 2024-11-29 09:44 | disposition home or self-care (01) ==
PROVIDERS: PCP Internal Medicine; Visit Provider Internal Medicine Cardiovascular Disease
DX: I22.2 Subsequent non-ST elevation (NSTEMI) myocardial infarction (principal)
CPT/HCPCS: 99213

== ENCOUNTER → 2024-11-29 08:46 | Outpatient (BNVA) | payer MEDICARE, SELFPAY | PROVIDERS: PCP Internal Medicine; Visit Provider Internal Medicine Cardiovascular Disease | DX: I22.2 Subsequent non-ST elevation (NSTEMI) myocardial infarction (principal); J44.9 Chronic obstructive pulmonary disease, unspecified | CPT/HCPCS: 99212 ==

== ENCOUNTER 2025-03-11 08:51 | Outpatient (AMB) | payer MEDICARE, SELFPAY ==
[2025-03-11 08:57] VITALS: BP 120/68; PULSE 83; TEMP 36.3; O2SAT 93; BMI 22.3
--- NOTE | 2025-03-11 08:57 | MHC.PC.OV ---
Vital Signs 03/11/25 08:57 Height 5 ft 2 in Weight 55.338 kg BMI 22.3 BP 120/68 Blood Pressure Location Lt brachial Position Sitting Pulse 83 Pulse Source Pulse Oximeter Temp 97.4 F Temp Source Axillary Pulse Oximetry (%) 93 Oxygen Delivery Method Room Air Intake Visit Reasons: Routine/ Off Oxygen & Needs Documentation Yarn Sizer Required: No Allergies infliximab [Remicade] Adverse Reaction (Unknown, Verified 03/11/25 09:00) arthralgia salacyclic acid wart remover Allergy (Unknown, Uncoded 08/10/24 15:07) hives, swollen joints Asacol Adverse Reaction (Unknown, Uncoded 08/10/24 15:07) GI upset Medication List - Last Reconciled 03/11/25 by TERRY Hernandez amlodipine 1 tab PO DAILY Oxygen Home Use Discontinue supplemental oxygen. Resting O2 93% Tobacco use date assessed: 03/11/25 Fall risk assessment: No Falls in past year Last assessed Fall Risk: 03/11/25 Dental Screening Dental Screen Date: 03/11/25 Did you have a dental visit in the last 12 months?: Yes Did you have a dental problem in the last 6 months where you did not have access to dental care?: No HPI HPI Comments History of Present Illness Details 70-year-old female with history of hypertension as well as colon cancer with metastasis to the lungs presents to the office to establish care and for routine follow-up. She is following with [facility] for management of her cancer. She has undergone 2 resections in 2019 and May of 2024 and has a permanent colostomy which she manages herself. Two months ago, she underwent 28 rounds of radiation as well as chemotherapy pills at home. Repeat scans she reports were (better than expected). As a result she will be off chemo medications until May when more scans will be performed. Regarding the lung metastasis, she underwent ablation and radiation and has been fine since. needs a prescription to have oxygen taken out of house. She had pneumonia in September of last year which resulted in her being discharged with supplemental oxygen. She was monitoring her oxygen levels at home and no longer require the oxygen since October. She kept the oxygen at home just in case of recurrent hypoxia but is now requesting a prescription to discontinue this. Oxygen in the office today is 93% at rest. [facility] Medical History (Updated 03/11/25 @ 09:21 by TERRY Hernandez) Anemia of chronic disease Hypertension Ureteral stent present Lung cancer Cancer of colon with rectum Surgical History Hx of appendectomy Hx of tonsillectomy Family History Father Colon cancer Heart attack Social History Household Members: [facility] Do you presently have visiting nurse or other home services: No Alcohol intake: never Patient Tobacco Use Status: Former Tobacco user Tobacco use type: Cigarette Second Hand Smoke Exposure: No service: No Current occupational status: disabled Cognitive needs: No Hearing needs: No Vision needs: Yes (reading glasses) Questionnaire PHQ-9 Over the last 2 weeks, how often have you been bothered by any of the following problems? 1. Little interest or pleasure in doing things: not at all 2. Feeling down, depressed, or hopeless: not at all 3. Trouble falling or staying asleep, or sleeping too much: not at all 4. Feeling tired or having little energy: not at all 5. Poor appetite or overeating: not at all 6. Feeling bad about yourself - or that you are a failure or have let yourself or your family down: not at all 7. Trouble concentrating on things, such as reading the newspaper or watching television: not at all 8. Moving or speaking so slowly that other people could have noticed. Or the opposite - being so fidgety or restless that you have been moving around a lot more than usual: not at all 9. Thoughts that you would be better off or of hurting yourself in some way: not at all Total score: 0 Source: Developed by Drs. Pito Mason, Adelita Mayers, Garrick Dubois and colleagues, with an educational yue from [employer]. Thrive Questionnaire Date Thrive assessed: 03/11/25 I am a: Patient Within the past 12 months, did the food you bought not last and you didn't have the money to get more?: Never true Within the past 12 months, did you worry whether your food would run out before you got money to buy more?: Never true Do you have trouble paying for medicines?: No Do you have trouble getting transportation to medical appointments?: No Do you have trouble paying your heating and electricity bill?: No Do you have trouble taking care of your child, family member or friend?: No Do you have trouble with day-to-day activities such as bathing, preparing meals, shopping, managing finances, etc.?: No Are you currently unemployed and looking for a job?: No Are you interested in more education?: No THRIVE Score: 0 AUDIT C Alcohol Use Questionnaire (AUDIT-C) 1. How often do you have a drink containing alcohol?: Monthly or less 2. How many drinks containing alcohol do you have on a typical day when you are drinking?: 1 or 2 3. How often do you have six or more drinks on one occasion?: Less than monthly Total Score: 2 LASHELL-7 AMB Questionnaire LASHELL-7 Date LASHELL - 7 assessed: 03/11/25 Feeling nervous, anxious, or on edge: 0 = Not at all Not being able to stop or control worryin = Not at all Worrying too much about different things: 0 = Not at all Trouble relaxin = Not at all Being so restless that it is hard to sit still: 0 = Not at all Becoming easily annoyed or irritable: 0 = Not at all Feeling afraid as if something awful might happen: 0 = Not at all Total LASHELL-7 score (0-4 normal; 5-9 mild; 10-14 moderate; 15-21 severe): 0 Source: Developed by Drs. Pito Msaon, Adelita Mayers, Garrick Dubois and colleagues, with an educational yue from [employer]. Review of Systems Const All systems reviewed & are unremarkable except as noted in HPI and below Physical exam (Primary Care) Vital Signs: Last Vital Signs Temp 97.4 F 03/11/25 08:57 Pulse 83 03/11/25 08:57 BP 120/68 03/11/25 08:57 Pulse Ox 93 03/11/25 08:57 Oxygen Delivery Method Room Air 03/11/25 08:57 BMI result Body Mass Index 22.3 Tobacco/Smoking Status: Tobacco use Status Tobacco use date assessed 03/11/25 03/11/25 09:02 Patient Tobacco Use Status Former Tobacco user 03/11/25 09:02 Tobacco use type Cigarette 03/11/25 09:02 PHQ-9: PHQ-9 Score PHQ-9: Total score 0 03/11/25 09:10 Thrive Assessment: Date of Thrive Assessment Date Thrive assessed 03/11/25 03/11/25 09:02 Const Other: Constitutional - Awake and Alert, No apparent distress Eyes - PERRLA, EOMI Cardiovascular - S1S2, RRR, No edema Respiratory - Normal lung expansion, Normal respiratory effort, No respiratory distress, CTA bilaterally Extremities - no calf tenderness bilaterally, no swelling Skin - Warm/Dry Neurological - Alert & oriented x3 Psychological - Appropriate affect Coding Level of Care Code New Pt Level 4 (51286) Complex EM visit Add On G2211 Diagnoses Hypertension I10 Lung cancer C34.90 Colon cancer C18.9 Hypoxia R09.02 Anemia of chronic disease D63.8 Assessment & Plan Assessment & Plan (1) Hypertension: Code(s): I10 - Essential (primary) hypertension Category: Medical Plan: Controlled with blood pressure 120/68. Continue amlodipine daily. Follow low-sodium diet. BNP ordered to evaluate renal function. (2) Lung cancer: Code(s): C34.90 - Malignant neoplasm of unspecified part of unspecified bronchus or lung Category: Medical Plan: Metastasis from lung cancer. Stable. Continue following with [facility] for routine scans. (3) Colon cancer: Code(s): C18.9 - Malignant neoplasm of colon, unspecified Category: Medical Plan: S/p resection x2 with permanent colostomy in place. Follow-up with [facility] scheduled. Per patient, last scans were reassuring with upcoming scans to be performed in upcoming months. (4) Hypoxia: Code(s): R09.02 - Hypoxemia Category: Medical Plan: Oximetry in the office today 93% at rest. Will discontinue supplemental O2, prescription written to be faxed to [facility]. (5) Anemia of chronic disease: Code(s): D63.8 - Anemia in other chronic diseases classified elsewhere Category: Medical Plan: BNP ordered to evaluate renal function electrolyte levels. Will also assess iron panel. Plan Follow-up in 6 months, sooner if needed. Routine labs ordered to be completed today. Labs ordered for upcoming visit. Orders: Orders IRON PROFILE Today C18.9 - Malignant neoplasm of colon, unspecified, C34.90 - Malignant neoplasm of unspecified part of unspecified bronchus or lung, I10 - Essential (primary) hypertension, R73.9 - Hyperglycemia, unspecified Lipid Panel Today C18.9 - Malignant neoplasm of colon, unspecified, C34.90 - Malignant neoplasm of unspecified part of unspecified bronchus or lung, I10 - Essential (primary) hypertension, R73.9 - Hyperglycemia, unspecified Hemoglobin A1c Today R73.9 - Hyperglycemia, unspecified Basic Metabolic Panel 5 Months D63.8 - Anemia in other chronic diseases classified elsewhere, I10 - Essential (primary) hypertension Basic Metabolic Panel Today C18.9 - Malignant neoplasm of colon, unspecified, C34.90 - Malignant neoplasm of unspecified part of unspecified bronchus or lung, I10 - Essential (primary) hypertension, R73.9 - Hyperglycemia, unspecified Complete Blood Count Auto Diff Today C18.9 - Malignant neoplasm of colon, unspecified, C34.90 - Malignant neoplasm of unspecified part of unspecified bronchus or lung, I10 - Essential (primary) hypertension, R73.9 - Hyperglycemia, unspecified TSH reflex Free T4 Today C18.9 - Malignant neoplasm of colon, unspecified, C34.90 - Malignant neoplasm of unspecified part of unspecified bronchus or lung, I10 - Essential (primary) hypertension, R73.9 - Hyperglycemia, unspecified Complete Blood Count Auto Diff 5 Months D63.8 - Anemia in other chronic diseases classified elsewhere, I10 - Essential (primary) hypertension Medications: New Oxygen Home Use Discontinue supplemental oxygen. Resting O2 93% 1 ea 0RF Changed From amlodipine 1 tab PO DAILY To amlodipine 5 mg PO DAILY 90 tabs 1RF
== END 2025-03-11 09:18 | disposition home or self-care (01) ==
LOC: HO.HMCHD 08:52
PROVIDERS: PCP Physician Assistant; Visit Provider Physician Assistant
DX: I10 Essential (primary) hypertension (principal); C34.90 Malignant neoplasm of unspecified part of unspecified bronchus or lung; C18.9 Malignant neoplasm of colon, unspecified; R09.02 Hypoxemia; D63.8 Anemia in other chronic diseases classified elsewhere

== ENCOUNTER → 2025-03-11 08:51 | Outpatient (BNVA) | payer MEDICARE, SELFPAY | PROVIDERS: PCP Physician Assistant; Visit Provider Physician Assistant | DX: Z13.89 Encounter for screening for other disorder (principal) | CPT/HCPCS: 99202 ==

== ENCOUNTER 2025-03-11 09:22 | Outpatient (REF) | payer MEDICARE, SELFPAY ==
[2025-03-11 09:40] LABS: MANUAL DIFF FLAG NO
[2025-03-11 09:46] LABS: Basophils Percent Auto 0.4 % (0-2); Eosinophils Absolute Auto 0.2 X10*3/uL (0.0-0.4); Eosinophils Percent Auto 3.5 % (0-4); Hematocrit 32.2 % (37.0-47.0); Hemoglobin 10.4 g/dl (12.0-16.0); Imm Gran Abs Auto 0.03 X10*3/uL (0.00-0.03); Imm Gran Pct Auto 0.6 % (0.0-0.4); Lymphocytes Absolute Auto 0.8 X10*3/uL (1.2-4.9); Lymphocytes Percent Auto 14.1 % (20-40); Mean Corpuscular HGB Conc 32.3 g/dl (31.0-35.0); Mean Corpuscular Volume 86.6 fL (80.0-98.0); Mean Platelet Volume 8.5 fL (9.4-12.3); Monocytes Absolute Auto 0.5 X10*3/uL (0.1-1.2); Monocytes Percent Auto 9.9 % (2-11); Neutrophils Absolute Auto 3.9 x10*3/uL (2.0-8.3); Neutrophils Percent Auto 71.5 % (45-73); Platelet Count 247 X10*3/uL (160-400); Red Blood Count 3.72 X10*6/uL (4.20-5.50); White Blood Count 5.5 X10*3/uL (4.8-10.8)
[2025-03-11 09:55] LABS: Estimated Average Glucose 117 mg/dL; Hemoglobin A1C 105.8861 umol/L; Hemoglobin A1c % 5.7 % (<6.0); Total Hemoglobin (HGBA1C) 2710.3639 umol/L
[2025-03-11 10:16] LABS: Anion Gap 11 (12-20); Blood Urea Nitrogen 20 mg/dL (9-16); Calcium 9.1 mg/dL (8.4-10.2); Carbon Dioxide 24 mmol/L (22-29); Chloride 107 mmol/L (96-108); Cholesterol 136 mg/dL (<200); Estimated Glomerular Filt Rate > 60; Glucose Random 96 mg/dL (60-115); HDL Cholesterol 47 mg/dL (>40); Iron 26 mcg/dL (30-160); LDL Cholesterol Calculated 72 mg/dL (<100); Percent Iron Saturation 11 % (15-50); Potassium 3.7 mmol/L (3.3-5.1); Sodium 138 mmol/L (135-145); Total Iron Binding Capacity 246 mcg/dL (228-428); Triglycerides 89 mg/dL (<150); Unsaturated Iron Binding 220 ug/dL
[2025-03-11 10:27] LABS: TSH reflex Free T4 1.95 uIU/mL (0.32-4.0)
== END 2025-03-11 09:23 | disposition home or self-care (01) ==
LOC: HO.10HDL 09:22
PROVIDERS: Visit Provider Physician Assistant
DX: C18.9 Malignant neoplasm of colon, unspecified (principal); C34.90 Malignant neoplasm of unspecified part of unspecified bronchus or lung; I10 Essential (primary) hypertension; R73.9 Hyperglycemia, unspecified; R09.02 Hypoxemia; D63.8 Anemia in other chronic diseases classified elsewhere
CPT/HCPCS: 36415; 80048; 80061; 83036; 83540; 84443; 85025; 99202

== ENCOUNTER 2025-05-12 12:47 | Outpatient (REF) | payer MEDICARE, SELFPAY | END 2025-05-12 12:48 | disposition home or self-care (01) | LOC: HO.MAMMO 12:47 | PROVIDERS: PCP Physician Assistant; Visit Provider Physician Assistant | DX: Z12.31 Encounter for screening mammogram for malignant neoplasm of breast (principal) | CPT/HCPCS: 77063; 77067 ==

== ENCOUNTER → 2025-05-12 13:00 | Outpatient (BNV) | payer MEDICARE, SELFPAY | PROVIDERS: PCP Physician Assistant; Visit Provider Internal Medicine | DX: Z12.31 Encounter for screening mammogram for malignant neoplasm of breast (principal) | CPT/HCPCS: 77063; 77067 ==

== ENCOUNTER 2025-08-22 11:16 | Inpatient (IN) | payer MEDICARE, SELFPAY ==
--- NOTE | 2025-08-22 | ECG_ITS ---
Test Reason : ABDOMINAL PAIN Blood Pressure : */* mmHG Vent. Rate : 125 BPM Atrial Rate : 125 BPM P-R Int : 156 ms QRS Dur : 110 ms QT Int : 332 ms P-R-T Axes : 51 82 50 degrees QTcB Int : 479 ms Sinus tachycardia with Premature atrial complexes Right bundle branch block Abnormal ECG When compared with ECG of 11-Aug-2024 09:30, Nonspecific T wave abnormality has replaced inverted T waves in Lateral leads Referred By: Axel Mcclendon Electronically Signed By: SHIVAM NEUMANN MD
--- NOTE | ~2025-08-22 | CT_ITS ---
EXAMINATION: CT CHEST WITHOUT CONTRAST CLINICAL INFORMATION: Weakness.? History of lung CA. COMPARISON: 08/10/2024 [facility]PA. TECHNIQUE: Multidetector volumetric CT imaging of the chest was done. Axial MIP volume rendering provided. Sagittal and coronal reformatted images were obtained. This CT examination was performed using dose optimization techniques as appropriate, variously including the following: *Automated exposure control *Adjustment of mA and/or kV according to patient size (this includes techniques or standardized protocols for targeted exams where dose is matched to indication/reason for exam; i.e. extremities or head) *Use of iterative reconstruction technique FINDINGS: LUNGS: Severe centrilobular emphysema is present with upper lobe predominance. There is a focus of reticular scarring in the posterior left apex, presumably chronic. There is a stellate triangular area of nodular scarring in the right upper lobe, measuring approximately 2.8 x 3.0 x 1.0 cm. (Series 8, image 60). This has increased in size and conspicuity since the prior examination when it measured approximately 1.6 x 1.6 x 1.0 cm, respectively. Minimal linear scarring or atelectasis is noted in both medial lung bases, and in the lingular segment. There is a 4 mm subpleural nodule in the left lower lobe laterally, unchanged. There are no effusions. There is no pneumothorax. There is a nodular filling defect in the right mainstem bronchus just distal to the estuardo measuring 8 x 8 mm in diameter (series 8, image 57; series 10, image 40). This was not previously present. MEDIASTINUM: Multinodular goiter is present. There are no masses or abnormal lymphadenopathy within the mediastinum. The aorta is moderately calcified but nonaneurysmal. It is tortuous. The main pulmonary artery is somewhat prominent suggesting increased pulmonary pressures. The heart size is normal. There are heavy coronary calcifications. There is no pericardial effusion. Esophagus is mildly patulous. CORONARY ARTERY CALCIFICATION: Heavy. AXILLA/CHEST WALL: No mass or lymphadenopathy. There is a right chest port in place with tip extending into the cavoatrial junction. UPPER ABDOMEN: Refer to the dedicated CT abdomen pelvis performed concurrently. OSSEOUS STRUCTURES: There is an exaggerated thoracic kyphosis with associated mild scoliosis. Mild compression deformities of the mid thoracic spine, chronic. There are old bilateral rib fractures. There are no suspicious lytic or blastic bone lesions. CT/CT chest wo IV con IMPRESSION: 1. Severe emphysema. Nodular and stellate triangular region of consolidation, right upper lobe, increasing in size and conspicuity from the prior exam as detailed in the body of report. Progressive malignancy cannot be excluded versus post treatment-related changes and/or increasing focal scarring/cicatrization atelectasis. 2. There is an 8 x 8 mm mural based nodule in the right mainstem bronchus just distal to the estuardo, not previously present and also suspicious for possible recurrent disease, versus inspissated secretions. This would be amenable to bronchoscopy. 3. The lungs are otherwise clear with no definite additional new or enlarging nodules. 4. No mediastinal lymphadenopathy or mass. 5. Ancillary findings as discussed in the body of the report. Electronically signed by: Nik Qiu MD 08/22/2025 03:23 PM EDT
--- NOTE | ~2025-08-22 | XR_ITS ---
EXAMINATION: XR CHEST CLINICAL INFORMATION: New cough COMPARISON: August 22, 2025. Correlated to CT chest dated August 22, 2025. TECHNIQUE: Frontal view of the chest was obtained. FINDINGS: Pulmonary reticular nodular pattern with persistent linear opacity right hemithorax Hyperinflated lungs.. No gross pleural effusion or pneumothorax. Right-sided Port-A-Cath inserted via right internal jugular vein ends in the right atrium region. Cardiomediastinal silhouette size is normal. Calcified plaque aortic arch. Multilevel thoracolumbar spondylosis. Degenerative changes in the right shoulder. Osteopenia versus osteoporosis. Old traumatic deformities in the lateral aspect of the ribs right hemithorax.. XR/XR chest 1V IMPRESSION: COPD emphysematous type changes with linear and ill-defined patchy opacities, right lung concerning for malignancy. Electronically signed by: Adán Ely MD 08/25/2025 11:20 AM EDT
--- NOTE | ~2025-08-22 | CT_ITS ---
EXAMINATION: CT ABDOMEN AND PELVIS WITHOUT CONTRAST CLINICAL INFORMATION: Abdominal pain. 70-year-old female. ? History of lung cancer. History of abdominoperineal resection. COMPARISON: None available. TECHNIQUE: Multidetector volumetric imaging was performed from the superior aspect of the liver through the pubic symphysis. Sagittal and coronal reformatted images were obtained on the technologist's workstation. This CT examination was performed using dose optimization techniques as appropriate, variously including the following: *Automated exposure control *Adjustment of mA and/or kV according to patient size (this includes techniques or standardized protocols for targeted exams where dose is matched to indication/reason for exam; i.e. extremities or head) *Use of iterative reconstruction technique FINDINGS: LUNG BASES: Lung bases are clear aside from mild linear atelectasis or scarring in the medial right base. There is COPD. The heart size is normal. There is no pericardial effusion. There is no pleural effusion. There is a small type I hiatus hernia. LIVER, GALLBLADDER, AND BILIARY TREE: The unenhanced liver is normal in size, shape, and attenuation. There are scattered calcified granulomata in the right lobe. Focal fatty infiltration abutting the falciform ligament. No suspicious focal hepatic lesion or biliary ductal dilatation is present. The gallbladder is distended with no evidence of radiopaque gallstones, gallbladder wall thickening, or obvious pericholecystic inflammatory changes. PANCREAS: Unremarkable. SPLEEN: Unremarkable. ADRENAL GLANDS: Bilateral hyperplasia. KIDNEYS AND URETERS: Right kidney demonstrates severe cortical thinning and atrophy with what appears to be chronic moderate to severe hydronephrosis. There is a stent within the right ureter, with pigtails formed in the collecting system and the urinary bladder. There is compensatory hypertrophy of the left kidney. There is no gross left hydronephrosis or hydroureter. Mild fullness of the collecting system, nonspecific. There is a hemorrhagic cyst in the upper pole measuring 14 mm. No suspicious renal lesion. BLADDER: Normally distended. Mildly lobulated contour. No wall thickening or definite lesion on this noncontrast exam. GASTROINTESTINAL TRACT: There has been a left-sided colectomy, with resection of the rectum and total APR. There is a midline superior pelvic colostomy, which is connected to the mid transverse colon. The right hemicolon appears normal. The appendix appears normal. The small bowel is abnormally dilated throughout the majority of its course, with mild associated small bowel wall thickening. There is no discrete transition point but rather a gradual caliber decrease to relatively decompressed terminal ileum. ABDOMINAL WALL: There are no significant hernia is present. There are extends postoperative changes with scarring in the mid and lower abdomen. There is scarring from prior APR. LYMPH NODES: No abnormal lymphadenopathy is present. VASCULAR: There is heavy atheromatous calcification of the aorta and iliac arteries, and their branches. PELVIC VISCERA: The uterus has been resected. No adnexal abnormalities. OSSEOUS STRUCTURES: There is no suspicious lytic or blastic bone lesion. There is a mild chronic compression deformity of L1. Severe disc degeneration is present at L5-S1. There is a bone island in the right ischium. CT/CT abdomen pelvis wo IV con IMPRESSION: 1. Diffuse small bowel dilatation, mild wall thickening, without discrete transition point but rather a gradual caliber change into the distal ileum. This could represent a nonspecific enteritis or partial small bowel obstruction. Given the degree of vascular disease present, ischemic enteritis is also a differential consideration. 2. There has been a prior abdominoperineal resection. There is a colostomy in the mid superior pelvis. 3. Chronic severe cortical atrophy and presumably chronic hydronephrosis of the right kidney, with a ureteral stent in place. 4. Compensatory hypertrophy of the left kidney, with mild fullness of collecting system but no gross hydronephrosis. 5. There are ancillary findings as discussed in the body of report. Electronically signed by: Nik Qiu MD 08/22/2025 02:59 PM EDT
--- NOTE | ~2025-08-22 | XR_ITS ---
EXAMINATION: XR CHEST CLINICAL INFORMATION: weakness COMPARISON: August 10, 2024. TECHNIQUE: Frontal view of the chest was obtained. FINDINGS: Mild prominence of the interstitial lung markings. Linear opacity right hemithorax. Hyperinflated lungs. Cardiomediastinal silhouette size is small. Calcified plaque thoracic aorta. Right-sided Port-A-Cath remains in the right atrium region. Old healed rib fractures right hemithorax. S-shaped curvature of the thoracolumbar spine. Osteopenia versus osteoporosis. XR/XR chest 1V IMPRESSION: Chronic interstitial lung disease with questionable mild interstitial lung edema in the correct clinical settings. Underlying neoplasm cannot be excluded. Electronically signed by: Adán Ely MD 08/22/2025 12:10 PM EDT
[2025-08-22 11:22] VITALS: BP 111/70; BP 128/65; PULSE 110; PULSE 112; RESP 18; TEMP 36.6; O2SAT 97; O2SAT 99; BMI 20.4
--- NOTE | 2025-08-22 11:36 | ED.ABDPAIN ---
HPI - Abdominal Pain General Chief Complaint: Abdominal Pain Stated Complaint: ABD PAIN,BOWEL ADHESSION 3WKS PER EMS Source: patient Mode of arrival: EMS Limitations: no limitations History of Present Illness ED Provider: HPI narrative: 70-year-old woman presenting with a abdominal pain, nausea, loose stools, she starts the symptoms started 6 days ago, initially with nausea, then a few days later she started having loose stools, she has a history of colon cancer with colectomy and has colostomy with the increased output, past 2 weeks she was at [facility] where she has had her colon surgery and she was evaluated with images she stated both CT and MRI and initially they thought that she has a partial bowel obstruction but told her she has a adhesions, no recent antibiotics. No fevers or chills. Pain is generalized. No dysuria no chest pain. Related Data Previous Rx's ?Medication ?Instructions ?Recorded Oxygen Home Use #1 ea 03/11/25 amlodipine 5 mg tablet 5 mg PO DAILY #90 tabs 03/11/25 Allergies Allergy/AdvReac Type Severity Reaction Status Date / Time infliximab (Remicade) AdvReac Unknown arthralgia Verified 08/22/25 11:27 salacyclic acid wart remover Allergy Unknown hives, Uncoded 08/22/25 11:27 swollen joints Asacol AdvReac Unknown GI upset Uncoded 08/22/25 11:27 Review of Systems Constitutional: Reports as per HPI [facility] Past Medical History Medical History (Updated 08/22/25 @ 15:25 by Axel Mcclendon DO) Anemia of chronic disease Hypertension Ureteral stent present Lung cancer Cancer of colon with rectum Surgical History Hx of appendectomy Hx of tonsillectomy Family History Family History Father Colon cancer Heart attack Social History Social History Household Members: Spouse Housing: Condominium Do you presently have visiting nurse or other home services: No Alcohol intake: never Patient Tobacco Use Status: Former Tobacco user Tobacco use type: Cigarette Smoked in Last 30 Days: No Second Hand Smoke Exposure: No Use of substances other than those prescribed or required for medical reasons: No Advance Directives: No Advance Directives Information Provided: Yes Do you have a plan to hurt others: No Plan service: No Current occupational status: disabled Cognitive needs: No Hearing needs: No Vision needs: Yes (reading glasses) Physical Exam ED Exam Exam: General: ?Appears of stated age ? ?slightly dry oral mucosa, no scleral icterus ? Neck: Supple, no LAD ? ?CV: RRR, no obvious murmurs appreciated ? ?Resp: ?No wheezing rales rhonchi no stridor moving air well ? Abd: ?Bowel sounds present, generalized tenderness to light touch, colostomy without any obvious hernias periosteal me, and she has loose stool in the ostomy bag ? ?MSK: FROM, strength 5/5 all extremities ? Skin: Warm, dry, intact, no jaundice ? ?Neuro: ?Alert and oriented x3, moving upper and lower extremities symmetrically, no obvious facial asymmetry noted, cranial nerves 2-12 intact Vital Signs: Vital Signs - 24 hr 08/22/25 11:22 08/22/25 11:38 08/22/25 13:00 Temperature 98 F 98.0 F Pulse Rate 112 H 121 H 109 H Respiratory Rate 18 23 H Blood Pressure 128/65 146/77 H Pulse Oximetry 97 97 Oxygen Delivery Method Room Air Room Air BMI result Body Mass Index 20.4 Medical Decision Making Medical Decision Making MDM Narrative: 11:43 AM 08/22/2025 (Dr. Axel Mcclendon): Patient with history of colon cancer surgery x2 last 1 was in April of this year, has colostomy with the increased output prior to that started with nausea and vomiting, few weeks ago reported to have adhesions in the abdomen and potentially had a partial bowel obstruction, considerations for workup as below, she reports both pain and anxiety, I will address both without call mixing the medications as not to sedate her too much, and disposition will be determined. She was noted to be tachycardic, nonfebrile, ECG with right bundle-branch block sinus tachycardia 1:11 PM 08/22/2025 (Dr. Axel Mcclendon): Noted to have pre renal acute kidney injury, we will give another L IV fluids, planning for admission, and as at this point no was notified that patient has bandemia, she has creatinine elevation, now she is meeting criteria for severe sepsis and will initiate antibiotics and obtain Blood cultures 3:22 PM 08/22/2025 (Dr. Axel Mcclendon): CT abdomen and pelvis with what appears to be nonspecific enteritis this is what appears to be clinically that patient has not enteritis and now has not BREANNE, as far as the other reading that this could be a gradual caliber change into the distally a.m. and represent a small bowel obstruction this is exactly what patient was told when she had a CT and MRI 2 weeks ago when she initially told me that that is what they considered. I will admit the patient on medical service, currently surgeons are not available for discussion but I did try to reach out to the it team just to make them aware as well. Differential Diagnosis Differential Diagnoses: The differential diagnosis associated with the presentation includes (SBO, infectious colitis, dehydration, electrolyte derangements, volvulus, ileus) Admission/Observation Consideration of admission/observation: Escalation of care including admission/observation considered Consult Healthcare Provider Management of the patient was discussed with: Hospitalist Lab Data MDM Lab Attestation statement: I reviewed the patient's lab results. 08/22/25 12:27 08/22/25 12:27 Labs: Lab Results 08/22/25 Range/Units 12:27 WBC 8.6 (4.8-10.8) X10*3/uL RBC 5.08 D (4.20-5.50) X10*6/uL Hgb 13.5 D (12.0-16.0) g/dl Hct 39.3 D (37.0-47.0) % MCV 77.4 L (80.0-98.0) fL MCH 26.6 L (27.0-33.0) pg MCHC 34.4 (31.0-35.0) g/dl RDW 15.7 (11.0-16.0) % Plt Count 307 (160-400) X10*3/uL MPV 9.0 L (9.4-12.3) fL Immature Gran % (Auto) Cancelled Neut % (Auto) Cancelled Lymph % (Auto) Cancelled [place] % (Auto) Cancelled Eos % (Auto) Cancelled Baso % (Auto) Cancelled Lymph # (Auto) Cancelled [place] # (Auto) Cancelled Eos # (Auto) Cancelled Baso # (Auto) Cancelled Abs Immat Gran (auto) Cancelled Absolute Neuts (auto) Cancelled Absolute Nucleated RBC 0.000 (0.0-0.012) X10*3/uL Nucleated RBC % (auto) 0.0 (0.0-0.2) /100WBC Neutrophils % (Manual) 50 (45-73) % Band Neutrophils % 27 H (3-5) % Lymphocytes % (Manual) 10 L (20-40) % Atypical Lymphs % (Man) 2 (0-6) % Monocytes % (Manual) 11 (2-11) % Abs Neuts (Manual) 6.6 (2.0-8.3) X10*3/uL Lymphocytes # (Manual) 0.9 L (1.2-4.9) X10*3/uL Atyp Lymphs # (Manual) 0.2 x10*3/uL Monocytes # (Manual) 0.9 (0.1-1.2) X10*3/uL Toxic Granulation PRESENT Toxic Vacuolation PRESENT Dohle Bodies PRESENT Platelet Estimate NORMAL (NORMAL) Plt Morphology Comment NORMAL RBC Morphology NORMAL Sodium 128 L (135-145) mmol/L Potassium 3.7 (3.3-5.1) mmol/L Chloride 92 L (96-108) mmol/L Carbon Dioxide 14 L (22-29) mmol/L Anion Gap 26 H (12-20) BUN 114 H (9-16) mg/dL Creatinine 4.23 H* (0.5-1.4) mg/dL Estim Creat Clear Calc 10.1 Estimated GFR 10 Random Glucose 132 H (60-115) mg/dL Lactic Acid 1.3 (0.5-2.0) mmol/L Calcium 8.1 L D (8.4-10.2) mg/dL Magnesium 1.9 (1.6-2.6) mg/dL Total Bilirubin 0.3 (0.0-1.0) mg/dL AST 27 (5-31) U/L ALT 21 (0-31) U/L Alkaline Phosphatase 84 (39-117) U/L Total Protein 7.9 (6.5-8.0) g/dL Albumin 3.9 (3.5-5.0) g/dL Lipase 23 (8-78) U/L Independent Interpretation I performed an independent interpretation of an: EKG (125 beats per minute right bundle-branch block, no ST-T changes no dysrhythmia) and Plain X-Ray (Right middle atelectasis,, no obvious consolidations, possibly left-sided pleural effusion) Radiology Impression Discussion of test interpretation with radiology: I have reviewed the radiologist's reading. ( XR/XR chest 1V IMPRESSION: Chronic interstitial lung disease with questionable mild interstitial lung edema in the correct clinical settings. Underlying neoplasm cannot be excluded.) Radiologist Impression: 1. Diffuse small bowel dilatation, mild wall thickening, without discrete transition point but rather a gradual caliber change into the distal ileum. This could represent a nonspecific enteritis or partial small bowel obstruction. Given the degree of vascular disease present, ischemic enteritis is also a differential consideration. 2. There has been a prior abdominoperineal resection. There is a colostomy in the mid superior pelvis. 3. Chronic severe cortical atrophy and presumably chronic hydronephrosis of the right kidney, with a ureteral stent in place. 4. Compensatory hypertrophy of the left kidney, with mild fullness of collecting system but no gross hydronephrosis. 5. There are ancillary findings as discussed in the body of report. IMPRESSION: 1. Severe emphysema. Nodular and stellate triangular region of consolidation, right upper lobe, increasing in size and conspicuity from the prior exam as detailed in the body of report. Progressive malignancy cannot be excluded versus post treatment-related changes and/or increasing focal scarring/cicatrization atelectasis. 2. There is an 8 x 8 mm mural based nodule in the right mainstem bronchus just distal to the estuardo, not previously present and also suspicious for possible recurrent disease, versus inspissated secretions. This would be amenable to bronchoscopy. 3. The lungs are otherwise clear with no definite additional new or enlarging nodules. 4. No mediastinal lymphadenopathy or mass. 5. Ancillary findings as discussed in the body of the report. Medications Administered Discontinued Medications Generic Name Dose Route Start Last Admin Trade Name Freq PRN Reason Stop Dose Admin Diazepam 2.5 mg 08/22/25 11:36 08/22/25 12:14 Diazepam 10 Mg/2 Ml Cartridge IVPUSH 08/22/25 11:37 2.5 mg STAT STA Administration Famotidine 20 mg 08/22/25 11:36 08/22/25 12:09 Famotidine/Pf 20 Mg/2 Ml Vial IVPUSH 08/22/25 11:37 20 mg ONCE ONE Administration Sodium Chloride 1,000 mls @ 999 mls/hr 08/22/25 11:45 08/22/25 13:18 Ns IV 08/22/25 12:45 Infused .Q1H1M NIEVES Infusion Acetaminophen 1,000 mg in 100 mls @ 400 mls/hr 08/22/25 11:36 08/22/25 12:32 Ofirmev IV 08/22/25 11:50 Infused ONCE ONE Infusion Piperacillin Sod/Tazobactam 50 mls @ 100 mls/hr 08/22/25 13:13 08/22/25 14:15 Sod 3.375 gm/ Sodium Chloride IV 08/22/25 13:42 Infused ONCE ONE Infusion Ondansetron HCl 4 mg 08/22/25 11:36 08/22/25 12:09 Ondansetron Hcl 4 Mg/2 Ml Vial IVPUSH 08/22/25 11:37 4 mg ONCE ONE Administration Critical Care Time Critical Care Time Critical Care Time: Yes Total Critical Care Time: 35 Attestation: Time is exclusive of separately billable procedures. Time includes: direct patient care, patient reassessment, coordination of patient care, interpretation of data (laboratory data, pulse oximetry, arterial blood gases and chest xrays), review of patient's medical records, medical consultation and documentation of patient care. Procedures excluded from critical care time: central intravenous line placement and electrocardiography. Discharge Plan Discharge Clinical Impression: BREANNE (acute kidney injury), Enteritis Patient Disposition: Admitted As Inpatient Print Language: Danish
[2025-08-22 11:38] VITALS: PULSE 121
[2025-08-22] MEDS: diazePAM 10 MG/2 ML CARTRIDGE 2.5 MG IVPUSH (12:14)
[2025-08-22 12:36] LABS: Hematocrit 39.3 % (37.0-47.0); Hemoglobin 13.5 g/dl (12.0-16.0); Mean Corpuscular HGB Conc 34.4 g/dl (31.0-35.0); Mean Corpuscular Hemoglobin 26.6 pg (27.0-33.0); Mean Corpuscular Volume 77.4 fL (80.0-98.0); NRBC Abs Auto 0.000 X10*3/uL (0.0-0.012); NRBC Pct Auto 0.0 /100WBC (0.0-0.2); Platelet Count 307 X10*3/uL (160-400); Red Blood Count 5.08 X10*6/uL (4.20-5.50)
[2025-08-22 12:40] LABS: WBC ABN SCTR FOR CBC 1; White Blood Count 8.6 X10*3/uL (4.8-10.8)
[2025-08-22 13:00] VITALS: BP 146/77; PULSE 109; RESP 23; TEMP 36.7; O2SAT 97
[2025-08-22 13:01] LABS: Alanine Aminotransferase 21 U/L (0-31); Albumin Level 3.9 g/dL (3.5-5.0); Alkaline Phosphatase 84 U/L (39-117); Anion Gap 26 (12-20); Aspartate Amino Transferase 27 U/L (5-31); Blood Urea Nitrogen 114 mg/dL (9-16); Calcium 8.1 mg/dL (8.4-10.2); Carbon Dioxide 14 mmol/L (22-29); Chloride 92 mmol/L (96-108); Creatinine Clr Calc Pharmacy 10.1; Estimated Glomerular Filt Rate 10; Lipase 23 U/L (8-78); Magnesium 1.9 mg/dL (1.6-2.6); Potassium 3.7 mmol/L (3.3-5.1); Sodium 128 mmol/L (135-145); Total Protein 7.9 g/dL (6.5-8.0)
[2025-08-22 13:14] LABS: Neutrophils Percent Manual 50 % (45-73)
[2025-08-22 13:15] LABS: Atypical Lymph Absolute Manual 0.2 x10*3/uL; Atypical Lymphs Percent Manual 2 % (0-6); Band Neutrophils Percent 27 % (3-5); Dohle Bodies PRESENT; Lymphocytes Absolute Manual 0.9 X10*3/uL (1.2-4.9); Lymphocytes Percent Manual 10 % (20-40); Monocytes Absolute Manual 0.9 X10*3/uL (0.1-1.2); Monocytes Percent Manual 11 % (2-11); Neutrophils Absolute Manual 6.6 X10*3/uL (2.0-8.3); RBC Morphology NORMAL; Toxic Granulation PRESENT; Toxic Vacuolation PRESENT
[2025-08-22] MEDS: Lactated Ringers 1,000 ML 150 ML IVCONT (15:53)
--- NOTE | 2025-08-22 16:08 | PHA.MEDREC ---
Addendum entered by Mikki Sainz RPh 08/22/25 16:14: Reviewed by pharmacist Original Note: Pharmacy Consult ? Medication Reconciliation Pharmacy has completed the medication reconciliation. Spoke with pt and pt spouse at bedside, pt confirmed her medications. Pt no longer taking Tamsulosin as needed.
--- NOTE | 2025-08-22 16:42 | P.HPHOSP_ITS ---
History of Present Illness Date of Service: 08/22/25 Attending physician on admission: [facility] Chief Complaint: N/V/D Pt is a 70-year-old female with a PMH significant for?HTN, Crohn's disease, colorectal cancer with pulmonary metastasis status post colectomy 2018, chemotherapy and radiation, recurrence in 05/2024 status post chemotherapy who presents to the ED with?N/V/D and generalized weakness x4 days. Pt reports she underwent a routine 3-month MRI and CT of chest and [place] [facility] [place]. Pt was asymptomatic at that time. Was called back by [facility] as imaging was suggestive of possible partial SBO. Pt was hospitalized overnight but had no N/V/D or abd pain. Was thought that imaging showed adhesions rather than SBO. Pt was discharged without incident and told to eat small meals. Pt remained asymptomatic until four days ago on when she developed N/V/D. Could not keep anything down and had consistent diarrhea. N/V resolved on Friday, but pt then began experiencing abd pain and leg cramping that night. Has since felt weak and exhausted, which prompted visit to the ED. No F/C. In the ED pt's vitals were significant for tachycardia of 121, tachypnea of 23, and mild hypertention. Labs were significant for sodium of 128, anion gap 26, BUN 114, and creatinine 4.23. CXR showed chronic interstitial lung disease with underlying neoplasm cannot be excluded. Chest CT with severe emphysema and new RUL consolidation and right nodule. CT of abd/pelvis concerning for nonspecific enteritis vs partial SBO; ischemic enteritis also on the differential. Pt was treated in the ED with ondansetron, famotidine, diazepam, IVF, acetaminophen, and Zosyn. Pt is admitted to the hospital to [facility] in the setting of intractable N/V/D and abd pain secondary to enteritis vs. partial SBO. Review of Systems 2 Review of Systems: Yes all other systems are reviewed and are negative [facility] Medical History (Updated 08/22/25 @ 15:25 by Axel Mcclendon DO) Anemia of chronic disease Hypertension Ureteral stent present Lung cancer Cancer of colon with rectum Family History Father Colon cancer Heart attack Surgical History Hx of appendectomy Hx of tonsillectomy Social History Household Members: Spouse Housing: Condominium Do you presently have visiting nurse or other home services: No Alcohol intake: never Patient Tobacco Use Status: Former Tobacco user Tobacco use type: Cigarette Smoked in Last 30 Days: No Second Hand Smoke Exposure: No Use of substances other than those prescribed or required for medical reasons: No Advance Directives: No Advance Directives Information Provided: Yes Do you have a plan to hurt others: No Plan service: No Current occupational status: disabled Cognitive needs: No Hearing needs: No Vision needs: Yes (reading glasses) Meds Allergies Allergy/AdvReac Type Severity Reaction Status Date / Time infliximab (Remicade) AdvReac Unknown arthralgia Verified 08/22/25 11:27 salacyclic acid wart remover Allergy Unknown hives, Uncoded 08/22/25 11:27 swollen joints Asacol AdvReac Unknown GI upset Uncoded 08/22/25 11:27 Active Medications: Current Medications Lactated Ringer's (Lr) 1,000 mls @ 0 mls/hr IV .Q0M NIEVES Lactated Ringer's (Lr) 1,000 mls @ 150 mls/hr IVCONT .Q6H40M NIEVES Last Admin: 08/22/25 15:53 Dose: 150 mls/hr Home Medications ?Medication ?Instructions ?Recorded ?Confirmed ?Last Taken ?Type ketoconazole 2 % topical cream 1 appl topical QD-BID P RN Rash 08/22/25 08/22/25 Unknown History trospium 20 mg tablet 20 mg PO BID 08/22/25 Unknown History Physical Exam 2 Vital Signs and Narrative: Vital Signs: Last Vital Signs Temp 98.0 F 08/22/25 13:00 Pulse 109 H 08/22/25 13:00 Resp 23 H 08/22/25 13:00 BP 146/77 H 08/22/25 13:00 Pulse Ox 97 08/22/25 13:00 O2 Del Method Room Air 08/22/25 13:00 BMI result Body Mass Index 20.4 General: AOx3, no acute distress Resp: CTA bilaterally CVS: S1, S2, RRR GI: +BS, no distention. Mild tenderness around ostomy site. Colostomy filled with brown-colored liquid diarrhea. Skin: Warm, dry Neuro: Cranial nerves II-XII grossly intact bilaterally. Motor grossly intact bilaterally Extremities: No edema Psych: Appropriate affect Results Labs 08/22/25 12:27 08/22/25 12:27 Labs: Laboratory Results - last 24 hr 08/22/25 12:27 MCV 77.4 L MCH 26.6 L MCHC 34.4 RDW 15.7 Plt Count 307 MPV 9.0 L Immature Gran % (Auto) Cancelled Neut % (Auto) Cancelled Lymph % (Auto) Cancelled [place] % (Auto) Cancelled Eos % (Auto) Cancelled Baso % (Auto) Cancelled Lymph # (Auto) Cancelled [place] # (Auto) Cancelled Eos # (Auto) Cancelled Baso # (Auto) Cancelled Abs Immat Gran (auto) Cancelled Absolute Neuts (auto) Cancelled Absolute Nucleated RBC 0.000 Nucleated RBC % (auto) 0.0 Neutrophils % (Manual) 50 Band Neutrophils % 27 H Lymphocytes % (Manual) 10 L Atypical Lymphs % (Man) 2 Monocytes % (Manual) 11 Abs Neuts (Manual) 6.6 Lymphocytes # (Manual) 0.9 L Atyp Lymphs # (Manual) 0.2 Monocytes # (Manual) 0.9 Toxic Granulation PRESENT Toxic Vacuolation PRESENT Dohle Bodies PRESENT Platelet Estimate NORMAL Plt Morphology Comment NORMAL RBC Morphology NORMAL Anion Gap 26 H Estim Creat Clear Calc 10.1 Estimated GFR 10 Random Glucose 132 H Lactic Acid 1.3 Calcium 8.1 L D Magnesium 1.9 Total Bilirubin 0.3 AST 27 ALT 21 Alkaline Phosphatase 84 Total Protein 7.9 Albumin 3.9 Lipase 23 Imaging Radiologist's Impressions: Impressions Chest X-Ray 08/22/25 11:54 IMPRESSION: Chronic interstitial lung disease with questionable mild interstitial lung edema in the correct clinical settings. Underlying neoplasm cannot be excluded. Electronically signed by: Adán Ely MD 08/22/2025 12:10 PM EDT Abdomen/Pelvis CT 08/22/25 14:09 IMPRESSION: 1. Diffuse small bowel dilatation, mild wall thickening, without discrete transition point but rather a gradual caliber change into the distal ileum. This could represent a nonspecific enteritis or partial small bowel obstruction. Given the degree of vascular disease present, ischemic enteritis is also a differential consideration. 2. There has been a prior abdominoperineal resection. There is a colostomy in the mid superior pelvis. 3. Chronic severe cortical atrophy and presumably chronic hydronephrosis of the right kidney, with a ureteral stent in place. 4. Compensatory hypertrophy of the left kidney, with mild fullness of collecting system but no gross hydronephrosis. 5. There are ancillary findings as discussed in the body of report. Electronically signed by: Nik Qiu MD 08/22/2025 02:59 PM EDT RP Chest CT 08/22/25 14:09 IMPRESSION: 1. Severe emphysema. Nodular and stellate triangular region of consolidation, right upper lobe, increasing in size and conspicuity from the prior exam as detailed in the body of report. Progressive malignancy cannot be excluded versus post treatment-related changes and/or increasing focal scarring/cicatrization atelectasis. 2. There is an 8 x 8 mm mural based nodule in the right mainstem bronchus just distal to the estuardo, not previously present and also suspicious for possible recurrent disease, versus inspissated secretions. This would be amenable to bronchoscopy. 3. The lungs are otherwise clear with no definite additional new or enlarging nodules. 4. No mediastinal lymphadenopathy or mass. 5. Ancillary findings as discussed in the body of the report. Electronically signed by: Nik Qiu MD 08/22/2025 03:23 PM EDT RP Assessment and Plan (1) BREANNE (acute kidney injury): Status: Acute (2) Enteritis: Status: Acute Plan Pt is a 70-year-old female with a PMH significant for?HTN, Crohn's disease, colorectal cancer with pulmonary metastasis status post colectomy 2018, chemotherapy and radiation, recurrence in 05/2024 status post chemotherapy who presents to the ED with?N/V/D and generalized weakness x4 days. Pt is admitted to the hospital to [facility] in the setting of intractable N/V/D and abd pain secondary to enteritis vs. partial SBO. Question of enteritis vs SBO Pt with N/V/D and abd pain x4 days Has been having consistent diarrhea, high-output ostomy; SBO less likely Similar imaging results found on routine f/u CT/MRI 3 weeks ago Meets SIRS criteria with tachycardia and tachypnea; no fever, leukocytosis, or lactic acidosis On empiric Zosyn, day 1 Check C diff, stool studies NPO, anagesics, IVF General surgery consult Pt prefers to be transferred to [facility] if needs surgical intervention [facility] Cr 4.23 (baseline 0.90), BUN 114 In the setting of above IVF Follow creatinine Consider nephrology consult if creatinine does not significantly improve Hyponatremia Initial sodium 128 In the setting of above Pt placed on IVF Monitor Sodium HTN Continue amlodipine Full Code Attending:?Dr. Lewis DVT Prophylaxis: Lovenox Pt will require a hospitalization of at least two nights for treatment of?[facility] in the setting of enteritis vs partial SBO with IVF, empiric IV abx, and close monitoring of labs. Quality Stroke Does the patient have a stroke diagnosis?: No VTE Prior VTE?: No VTE Risk Level:: Medical - moderate - high VTE Device Contraindication: Treatment Not Indicated VTE Drug Contraindication: N/A - Med Ordered
[2025-08-22 21:36] VITALS: BP 121/75; PULSE 117; RESP 20; TEMP 36.4; O2SAT 95
[2025-08-22] MEDS: Dextrose 5 % and Lactated Ring 1,000 ML 100 ML IVCONT (23:35)
[2025-08-22 23:38] VITALS: BP 109/65; PULSE 112; RESP 20; O2SAT 94
[2025-08-23] VITALS (7 sets, daily range): BP systolic 103–128; BP diastolic 58–79; PULSE 80–119; RESP 18–22; TEMP 36.1–36.6; O2SAT 92–97; BMI 19.4
--- NOTE | 2025-08-23 | ECG_ITS ---
Test Reason : TACHYCARDIA Blood Pressure : */* mmHG Vent. Rate : 107 BPM Atrial Rate : 107 BPM P-R Int : 160 ms QRS Dur : 114 ms QT Int : 358 ms P-R-T Axes : 80 51 50 degrees QTcB Int : 477 ms Sinus tachycardia with Premature atrial complexes Right bundle branch block Abnormal ECG When compared with ECG of 22-Aug-2025 11:38, No significant change was found Referred By: Jewels Kidd Electronically Signed By: SHIVAM NEUMANN MD
[2025-08-23 05:08] LABS: Hematocrit 38.0 % (37.0-47.0); Hemoglobin 12.8 g/dl (12.0-16.0); Mean Corpuscular HGB Conc 33.7 g/dl (31.0-35.0); Mean Corpuscular Hemoglobin 26.3 pg (27.0-33.0); Mean Corpuscular Volume 78.2 fL (80.0-98.0); NRBC Abs Auto 0.020 X10*3/uL (0.0-0.012); NRBC Pct Auto 0.3 /100WBC (0.0-0.2); Platelet Count 274 X10*3/uL (160-400); Red Blood Count 4.86 X10*6/uL (4.20-5.50); White Blood Count 7.0 X10*3/uL (4.8-10.8)
[2025-08-23 05:48] LABS: Anion Gap 25 (12-20); Blood Urea Nitrogen 117 mg/dL (9-16); Calcium 8.2 mg/dL (8.4-10.2); Carbon Dioxide 14 mmol/L (22-29); Chloride 98 mmol/L (96-108); Creatinine Clr Calc Pharmacy 9.5; Estimated Glomerular Filt Rate 10; Magnesium 1.9 mg/dL (1.6-2.6); Potassium 4.1 mmol/L (3.3-5.1); Sodium 133 mmol/L (135-145)
[2025-08-23 07:16] LABS: Glucose, Whole Blood 110 mg/dL (60-115)
--- NOTE | 2025-08-23 07:19 | PC.NURSE ---
report received and care assumed at 0700. Pt found to be awake and alert, resting supine in the bed, appearing comfortable without distress noted. Her ABX were hung to gravity and appeared to be complete upon RN's arrival to bedside. Maintenance fluids resumed at 100ml/hr per MAR, IV site without s/s of complications noted. Surgery currently present at the patient's bedside for primary evaluation. Call ibanez in reach, oral swab in hand
--- NOTE | 2025-08-23 08:27 | P.CONGS_ITS ---
History of Present Illness Consult details Consult date: 08/23/25 <Stephanie Fleming PA-C - Last Filed: 08/23/25 09:35> Requesting physician: Jewels Kidd <Stephanie Fleming PA-C - Last Filed: 08/23/25 09:35> Narrative: 70-year-old female with a PMH significant for HTN, anemia, hx of rectal CA who presented with abdominal pain and diarrhea. She has a history of [place] [facility] [place] reports having a total hysterectomy with b/l oophorosalpingectomy as well at that time. She had subsequent chemotherapy and radiation for pulmonary mets with recurrence in 05/2024 requiring another colon resection. She has MRI and chest CT every 3 months for monitoring. She had one three weeks ago which was concerning for PSBO and was called back to the hospital and was admitted for observation. She was asymptomatic at that time. She reports on she developed nausea and had multiple episodes of vomiting and was unable to keep anything down. The vomiting resolved and on Friday she developed abdominal pain and had significant amount of liquid ostomy output. She felt very weak which prompted to her to seek evaluation in the ED. Labs were significant for multiple electrolyte abnormalities as well as Cr of 4.32. CT scan abd pelvis was obtained which showed dilated small bowel loops. She denies abd pain, further nausea or vomiting. She feels improved this morning and feels hungry. She reports continued high ostomy output. She denies sick contacts. <SHARON Paul Last Filed: 08/23/25 09:35> Review of Systems 2 Review of Systems: Yes all other systems are reviewed and are negative < SHARON Paul Last Filed: 08/23/25 09:35> [facility] Past Medical History Medical History: Medical History Anemia of chronic disease Hypertension Ureteral stent present Lung cancer Cancer of colon with rectum <SHARON Paul Last Filed: 08/23/25 09:35> Family History Family History: Family History Father Colon cancer Heart attack <Stephanie Fleming PA-C - Last Filed: 08/23/25 09:35> Surgical History Surgical History: Surgical History S/P colon resection S/P CARLOS MANUEL-BSO (total abdominal hysterectomy and bilateral salpingo-oophorectomy) Hx of appendectomy Hx of tonsillectomy <Stephanie Fleming PA-C - Last Filed: 08/23/25 09:35> Social History Social History: Social History Household Members: Spouse Housing: Condominium Do you presently have visiting nurse or other home services: No Alcohol intake: never Patient Tobacco Use Status: Former Tobacco user Tobacco use type: Cigarette Second Hand Smoke Exposure: No service: No Current occupational status: disabled Cognitive needs: No Hearing needs: No Vision needs: Yes (reading glasses) <SHARON Paul Last Filed: 08/23/25 09:35> Meds Allergies/Adverse reactions: Allergies Allergy/AdvReac Type Severity Reaction Status Date / Time infliximab (Remicade) AdvReac Unknown arthralgia Verified 08/22/25 11:27 salacyclic acid wart remover Allergy Unknown hives, Uncoded 08/22/25 11:27 swollen joints Asacol AdvReac Unknown GI upset Uncoded 08/22/25 11:27 <SHARON Paul Last Filed: 08/23/25 09:35> Active Medications: Current Medications Acetaminophen (Acetaminophen 325 Mg Tablet) 650 mg PO Q6H PRN PRN Reason: Pain, Mild 1-3,fever,headache Amlodipine Besylate (Amlodipine Besylate 5 Mg Tablet) 5 mg PO DAILY [facility]; Protocol Calcium Carbonate (Calcium Carbonate 750 Mg Tab.Chew) 750 mg PO Q4H PRN PRN Reason: Heartburn Enoxaparin Sodium (Enoxaparin Sodium 40 Mg/0.4 Ml Syringe) 40 mg SUBCUT Q24H [facility] Last Admin: 08/22/25 21:31 Dose: 40 mg Lactated Ringer's (Lr) 1,000 mls @ 0 mls/hr IV .Q0M [facility] Dextrose/Lactated Ringer's (D5lr) 1,000 mls @ 100 mls/hr IVCONT .Q10H [facility] Last Infusion: 08/23/25 07:16 Dose: 100 mls/hr Piperacillin Sod/Tazobactam (Sod 2.25 gm/ Sodium Chloride) 50 mls @ 100 mls/hr IV Q8H [facility] Last Infusion: 08/23/25 07:16 Dose: Infused Magnesium Hydroxide (Milk Of Magnesia 30 Ml Oral.Susp) 30 ml PO DAILY PRN PRN Reason: Constipation Melatonin (Melatonin 3 Mg Tablet) 6 mg PO BEDTIME PRN PRN Reason: Insomnia Morphine Sulfate (Morphine Sulfate 4 Mg/Ml Cartridge) 2 mg IVPUSH Q4H PRN; Protocol PRN Reason: Pain, Severe (Pain Scale 7-10) Last Admin: 08/22/25 17:05 Dose: 2 mg Ondansetron HCl (Ondansetron Hcl 4 Mg/2 Ml Vial) 4 mg IVPUSH Q8H PRN PRN Reason: Nausea and Vomiting Sodium Chloride (0.9 % Sodium Chloride Flush 3 Ml Syringe) 3 ml IVFLUSH QSHIFT [facility] Last Admin: 08/23/25 08:14 Dose: Not Given <SHARON Paul Last Filed: 08/23/25 09:35> Home medications: Home Medications ?Medication ?Instructions ?Recorded ?Confirmed ?Last Taken ?Type ketoconazole 2 % topical cream 1 appl topical QD-BID P RN Rash 08/22/25 08/22/25 Unknown History trospium 20 mg tablet 20 mg PO BID 08/22/25 Unknown History <Stephanie Fleming PA-C - Last Filed: 08/23/25 09:35> Physical Exam 2 Vital Signs: Vital Signs: Last Vital Signs Temp 97.9 F 08/23/25 06:27 Pulse 104 H 08/23/25 06:27 Resp 20 08/23/25 06:27 BP 113/62 08/23/25 06:27 Pulse Ox 96 08/23/25 06:27 O2 Del Method Room Air 08/23/25 06:27 BMI result Body Mass Index 20.4 <SHARON Paul Last Filed: 08/23/25 09:35> Const: General: comfortable, no acute distress and alert <Stephanie Fleming PACandido Morales Last Filed: 08/23/25 09:35> Orientation/consciousness: patient oriented x3 <Stephanie BernadetteTERRY turciosCandido Morales Last Filed: 08/23/25 09:35> Resp: Effort & Inspection: normal respiratory effort and able to speak in complete sentences <Stephanie BernadetteTERRY turciosCandido Morales Last Filed: 08/23/25 09:35> Cardio: Rate: tachycardic <Stephanie GómezTERRY turciosCandido Morales Last Filed: 08/23/25 09:35> GI: Other: distended but soft nontender ostomy left mid abdomen with large amount of liquid output <Stephanie GómezTERRY turciosCandido Morales Last Filed: 08/23/25 09:35> Percussion: Yes tympanic to percussion <Stephanie GómezTERRY turciosCandido Morales Last Filed: 08/23/25 09:35> Skin: General skin exam: no rashes or lesions noted <Stephanie GómezTERRY turciosCandido Morales Last Filed: 08/23/25 09:35> Neuro: General: patient oriented x3 and moves all extremities <Stephanie GómezTERRY turciosCandido Morales Last Filed: 08/23/25 09:35> Results Labs Result diagrams: 08/23/25 03:54 08/23/25 03:54 <StephanieTERRY PanchalCandido Morales Last Filed: 08/23/25 09:35> Labs: Abnormal lab results 08/22/25 08/23/25 Range/Units 12:27 03:54 MCV 77.4 L 78.2 L (80.0-98.0) fL MCH 26.6 L 26.3 L (27.0-33.0) pg MPV 9.0 L 9.2 L (9.4-12.3) fL Absolute Nucleated RBC 0.020 H (0.0-0.012) X10*3/uL Nucleated RBC % (auto) 0.3 H (0.0-0.2) /100WBC Band Neutrophils % 27 H (3-5) % Lymphocytes % (Manual) 10 L (20-40) % Lymphocytes # (Manual) 0.9 L (1.2-4.9) X10*3/uL Sodium 128 L 133 L (135-145) mmol/L Chloride 92 L (96-108) mmol/L Carbon Dioxide 14 L 14 L (22-29) mmol/L Anion Gap 26 H 25 H (12-20) BUN 114 H 117 H (9-16) mg/dL Creatinine 4.23 H* 4.50 H* (0.5-1.4) mg/dL Random Glucose 132 H 117 H (60-115) mg/dL Calcium 8.1 L D 8.2 L (8.4-10.2) mg/dL Short CBC 08/22/25 08/23/25 Range/Units 12:27 03:54 WBC 8.6 7.0 (4.8-10.8) X10*3/uL Hgb 13.5 D 12.8 (12.0-16.0) g/dl Hct 39.3 D 38.0 (37.0-47.0) % Plt Count 307 274 (160-400) X10*3/uL BMP 08/22/25 08/23/25 12:27 03:54 Sodium 128 L 133 L Potassium 3.7 4.1 Chloride 92 L 98 Carbon Dioxide 14 L 14 L BUN 114 H 117 H Creatinine 4.23 H* 4.50 H* Calcium 8.1 L D 8.2 L Liver Function 08/22/25 Range/Units 12:27 Total Bilirubin 0.3 (0.0-1.0) mg/dL AST 27 (5-31) U/L ALT 21 (0-31) U/L Alkaline Phosphatase 84 (39-117) U/L Albumin 3.9 (3.5-5.0) g/dL All other labs normal. <Stephanie Fleming PA-C - Last Filed: 08/23/25 09:35> Imaging Abdomen CT scan report/results: report reviewed and image reviewed <SHARON Paul Last Filed: 08/23/25 09:35> Additional studies: labs reviewed <SHARON Paul Last Filed: 08/23/25 09:35> Assessment and Plan (1) Enteritis: Status: Acute <SHARON Paul Last Filed: 08/23/25 09:35> Patient is well known to me She had APR for rectal cancer in 2020, had another resection last year recurrence Also with pulmonary metastasis Admitted because of diarrhea, with electrolyte imbalance, elevated creatinine Question of obstruction on CAT scan I have reviewed her images - likely more to be enteritis done SBO She has passing flatus and stool via her stoma - clinically not obstructed Abdomen is soft and benign Okay to have clear liquids Seen and examined independently <Frankie Rogers MD - Last Filed: 08/23/25 15:27> 70-year-old female with a PMH significant for HTN, anemia, hx of colorectal CA s/p APR with chemo/radiation for pulm mets with subsequent recurrence presenting with abdominal pain, as well as N/V/D. Her abdomen is softly distended, nontender. She has had no further vomiting and has a large amount of liquid ostomy output. She is not clinically obstructed and picture is more suggestive of gastroenteritis. Agree with obtaining C diff/stool studies. Can advance to clear liquids and then further as tolerated. Will continue to follow. <Stephanie Fleming PA-C - Last Filed: 08/23/25 09:35> Procedures Date of Service Date of Service: 08/23/25 <Stephanie Fleming PA-C - Last Filed: 08/23/25 09:35> 08/23/25 <Frankie Rogers MD - Last Filed: 08/23/25 15:27>
--- NOTE | 2025-08-23 10:03 | PM.CNNEP ---
History of Present Illness Reason for Consult Consult date: 08/23/25 Chief Complaint Chief complaint: BREANNE History of Present Illness Narrative: 70-year-old lady with PMH of hypertension, Crohn's disease, colorectal cancer with pulmonary metastasis s/p colectomy in 2019, currently on chemo presented to the ED with nausea, vomiting, diarrhea and generalized weakness since last . Patient has been having severe diarrhea, multiple episodes a day with poor oral intake. Of note she was [place] [facility] [place] abdomen and pelvis showed severe dilation and wall edema of small intestines possibly suggesting enteritis versus small bowel obstruction. Chronic right-sided hydronephrosis with cortical thinning, previous ureteric stent noted. CT chest showed severe emphysema, 8 mm and 2 8 mm lung nodule, stellate area of consolidation which might be malignancy versus chronic scarring versus atelectasis. Her baseline creatinine is around 0.8, 4.2 yesterday, increased to 4.5 this morning so renal consulted. Review of Systems Review of Systems Const : no body aches, no chills, no excessive sweating and + fatigue Eyes: no blurry vision and no change in vision ENT: no bleeding gums and no change in voice, no dizziness Card: no chest pain, no shortness of breath, no orthopnea, no PND Resp: no cough, no excessive phlegm production, no SOB GI: +abdominal pain,+ nausea, + vomiting : no hematuria, no urinary frequency and no difficulty voiding Musc: no abnormal gait, no bone pain Neuro: no abnormal movements, + weakness, +dizziness Psych: no behavioral changes and no change in appetite Endo: no change in body appearance, no cold intolerance PMFSH Past Medical History Medical History (Updated 08/22/25 @ 15:25 by Axel Mcclendon DO) Anemia of chronic disease Hypertension Ureteral stent present Lung cancer Cancer of colon with rectum Family History Family History Father Colon cancer Heart attack Surgical History Surgical History (Updated 08/23/25 @ 09:31 by Stephanie Fleming PA-C) S/P colon resection S/P CARLOS MANUEL-BSO (total abdominal hysterectomy and bilateral salpingo-oophorectomy) Hx of appendectomy Hx of tonsillectomy Social History Social History Household Members: Spouse Housing: Condominium Do you presently have visiting nurse or other home services: No Alcohol intake: never Patient Tobacco Use Status: Former Tobacco user Tobacco use type: Cigarette Smoked in Last 30 Days: No Second Hand Smoke Exposure: No Use of substances other than those prescribed or required for medical reasons: No Advance Directives: No Advance Directives Information Provided: Yes Do you have a plan to hurt others: No Plan service: No Current occupational status: disabled Cognitive needs: No Hearing needs: No Vision needs: Yes (reading glasses) Meds Allergies Allergy/AdvReac Type Severity Reaction Status Date / Time infliximab (Remicade) AdvReac Unknown arthralgia Verified 08/22/25 11:27 salacyclic acid wart remover Allergy Unknown hives, Uncoded 08/22/25 11:27 swollen joints Asacol AdvReac Unknown GI upset Uncoded 08/22/25 11:27 Active Medications: Current Medications Acetaminophen (Acetaminophen 325 Mg Tablet) 650 mg PO Q6H PRN PRN Reason: Pain, Mild 1-3,fever,headache Last Admin: 08/23/25 09:49 Dose: 650 mg Amlodipine Besylate (Amlodipine Besylate 5 Mg Tablet) 5 mg PO DAILY [facility]; Protocol Last Admin: 08/23/25 09:49 Dose: 5 mg Calcium Carbonate (Calcium Carbonate 750 Mg Tab.Chew) 750 mg PO Q4H PRN PRN Reason: Heartburn Enoxaparin Sodium (Enoxaparin Sodium 40 Mg/0.4 Ml Syringe) 40 mg SUBCUT Q24H [facility] Last Admin: 08/22/25 21:31 Dose: 40 mg Lactated Ringer's (Lr) 1,000 mls @ 0 mls/hr IV .Q0M [facility] Dextrose/Lactated Ringer's (D5lr) 1,000 mls @ 100 mls/hr IVCONT .Q10H [facility] Last Infusion: 08/23/25 07:16 Dose: 100 mls/hr Piperacillin Sod/Tazobactam (Sod 2.25 gm/ Sodium Chloride) 50 mls @ 100 mls/hr IV Q8H [facility] Last Infusion: 08/23/25 07:16 Dose: Infused Magnesium Hydroxide (Milk Of Magnesia 30 Ml Oral.Susp) 30 ml PO DAILY PRN PRN Reason: Constipation Melatonin (Melatonin 3 Mg Tablet) 6 mg PO BEDTIME PRN PRN Reason: Insomnia Morphine Sulfate (Morphine Sulfate 4 Mg/Ml Cartridge) 2 mg IVPUSH Q4H PRN; Protocol PRN Reason: Pain, Severe (Pain Scale 7-10) Last Admin: 08/22/25 17:05 Dose: 2 mg Ondansetron HCl (Ondansetron Hcl 4 Mg/2 Ml Vial) 4 mg IVPUSH Q8H PRN PRN Reason: Nausea and Vomiting Sodium Chloride (0.9 % Sodium Chloride Flush 3 Ml Syringe) 3 ml IVFLUSH QSHIFT [facility] Last Admin: 08/23/25 08:14 Dose: Not Given Home Medications ?Medication ?Instructions ?Recorded ?Confirmed ?Last Taken ?Type ketoconazole 2 % topical cream 1 appl topical QD-BID PRN Rash 08/22/25 08/22/25 Unknown History trospium 20 mg tablet 20 mg PO BID 08/22/25 08/22/25 Unknown History Physical Exam Vital Signs: Last Vital Signs Temp 98 F 08/23/25 09:39 Pulse 119 H 08/23/25 09:39 Resp 22 H 08/23/25 09:39 BP 116/66 08/23/25 09:49 Pulse Ox 96 08/23/25 09:39 O2 Del Method Room Air 08/23/25 09:39 BMI result Body Mass Index 20.4 General: not in any acute distress, ill appearing Nutritional Appearance: poorly nourished and underweight Eyes: appearance normal, both eyes and all related structures; Alignment and Position: alignment normal and position normal Neck: No lymphadenopathy, no thyromegaly Resp: bilateral air entry equal, no added sounds present Cardio: Regular rate, regular rhythm; Heart sounds: S1 normal heart sound present and S2 normal heart sound present GI: soft, +tender, no guarding, no hepatosplenomegaly, colostomy present : bladder normal to inspection, bladder normal to palpation, no renal angle tenderness Skin: no rashes or lesions noted and elasticity normal Neuro: alert, oriented x 3, moves all extremities Results Lab Results 08/23/25 03:54 08/23/25 03:54 Lab results: Chemistry 08/22/25 08/23/25 12:27 03:54 Sodium 128 L 133 L Potassium 3.7 4.1 Carbon Dioxide 14 L 14 L BUN 114 H 117 H Creatinine 4.23 H* 4.50 H* Calcium 8.1 L D 8.2 L Hematology 08/22/25 08/23/25 12:27 03:54 WBC 8.6 7.0 Hgb 13.5 D 12.8 Plt Count 307 274 Assessment and Plan (1) Hypertension: Status: Acute (2) BREANNE (acute kidney injury): Status: Acute Plan Acute kidney injury: Patient possibly has an acute tubular necrosis secondary to severe volume depletion from diarrhea and poor oral intake as creatinine tends to go up despite volume replacement Baseline creatinine 0.8, increased to 4.2 yesterday further increased to 4.5 today. Urinalysis showing 3+ protein, 3+ blood, greater than 20 RBCs, greater than 50 WBCs. Need to quantify proteinuria once BREANNE settles down. We will get urine eosinophils, complements, hepatitis panel, HIV. No acute indication for renal replacement therapy, continue IV fluids for now. Avoid nephrotoxic agents, contrast, MAUREEN/ARB. High anion gap metabolic acidosis: Secondary to BREANNE Bicarb down to 14 Given ongoing diarrhea can switch the fluids to sodium bicarbonate with dextrose. Hypertension: Blood pressure is well controlled Continue amlodipine. Procedures Date of Service Date of Service: 08/23/25
[2025-08-23] MEDS: Sodium Bicarbonate 8.4% 150 MEQ in Dextrose 5 % 850 ML 100 MEQ IV ×2 (12:04→23:55)
--- NOTE | 2025-08-23 12:22 | P.PNIM_ITS ---
Subjective Subjective Date of Service: 08/23/25 Interval History: Feeling slightly better Continued constant liquid diarrhea in colostomy pouch Some abdominal pain No nausea or vomiting Tested positive for CDiff gene, negative for toxin On tele, has had persistent tachycardia up to 130s Pt denies CP/pressure or palpitations Review of Systems Review of Systems: Yes all other systems are reviewed and are negative Physical Exam 2 Exam: Exam: General: AOx3, no acute distress Resp: CTA bilaterally CVS: Regularly , tachycardic GI: +BS, no distention. Mild left-sided abdominal tenderness around ostomy site. Colostomy filled with brown-colored liquid stool. Skin: Warm, dry Neuro: Cranial nerves II-XII grossly intact bilaterally. Motor grossly intact bilaterally Extremities: No edema Psych: Appropriate affect Vital Signs: Vital Signs: Last Vital Signs Temp 96.9 F 08/23/25 11:46 Pulse 80 08/23/25 11:46 Resp 18 08/23/25 11:46 BP 128/79 08/23/25 11:46 Pulse Ox 92 08/23/25 11:46 O2 Del Method Room Air 08/23/25 11:46 BMI result Body Mass Index 20.4 Objective Data Active Medications Acetaminophen (Acetaminophen 325 Mg Tablet) 650 mg PO Q6H PRN PRN Reason: Pain, Mild 1-3,fever,headache Last Admin: 08/23/25 09:49 Dose: 650 mg Documented By: DANITZA Amlodipine Besylate (Amlodipine Besylate 5 Mg Tablet) 5 mg PO DAILY [facility]; Protocol Last Admin: 08/23/25 09:49 Dose: 5 mg Documented By: DANITZA Calcium Carbonate (Calcium Carbonate 750 Mg Tab.Chew) 750 mg PO Q4H PRN PRN Reason: Heartburn Enoxaparin Sodium (Enoxaparin Sodium 40 Mg/0.4 Ml Syringe) 40 mg SUBCUT Q24H [facility] Last Admin: 08/22/25 21:31 Dose: 40 mg Documented By: GHASSAN Lactated Ringer's (Lr) 1,000 mls @ 0 mls/hr IV .Q0M [facility] Piperacillin Sod/Tazobactam (Sod 2.25 gm/ Sodium Chloride) 50 mls @ 100 mls/hr IV Q8H [facility] Last Infusion: 08/23/25 07:16 Dose: Infused Documented By: DANITZA Sodium Bicarbonate 150 meq/ (Dextrose) 1,000 mls @ 100 mls/hr IV .Q10H [facility] Last Admin: 08/23/25 12:04 Dose: 100 mls/hr Documented By: GELY Magnesium Hydroxide (Milk Of Magnesia 30 Ml Oral.Susp) 30 ml PO DAILY PRN PRN Reason: Constipation Melatonin (Melatonin 3 Mg Tablet) 6 mg PO BEDTIME PRN PRN Reason: Insomnia Morphine Sulfate (Morphine Sulfate 4 Mg/Ml Cartridge) 2 mg IVPUSH Q4H PRN; Protocol PRN Reason: Pain, Severe (Pain Scale 7-10) Last Admin: 08/22/25 17:05 Dose: 2 mg Documented By: ELENA Ondansetron HCl (Ondansetron Hcl 4 Mg/2 Ml Vial) 4 mg IVPUSH Q8H PRN PRN Reason: Nausea and Vomiting Sodium Chloride (0.9 % Sodium Chloride Flush 3 Ml Syringe) 3 ml IVFLUSH QSHIFT [facility] Last Admin: 08/23/25 08:14 Dose: Not Given Documented By: DANITZA Non-Admin Reason: IV Running Labs 08/23/25 03:54 08/23/25 03:54 Labs: Laboratory Results - last 24 hr 08/22/25 08/23/25 08/23/25 12:27 03:54 07:04 MCV 77.4 L 78.2 L MCH 26.6 L 26.3 L MCHC 34.4 33.7 RDW 15.7 15.8 Plt Count 307 274 MPV 9.0 L 9.2 L Immature Gran % (Auto) Cancelled Neut % (Auto) Cancelled Lymph % (Auto) Cancelled [place] % (Auto) Cancelled Eos % (Auto) Cancelled Baso % (Auto) Cancelled Lymph # (Auto) Cancelled [place] # (Auto) Cancelled Eos # (Auto) Cancelled Baso # (Auto) Cancelled Abs Immat Gran (auto) Cancelled Absolute Neuts (auto) Cancelled Absolute Nucleated RBC 0.000 0.020 H Nucleated RBC % (auto) 0.0 0.3 H Neutrophils % (Manual) 50 Band Neutrophils % 27 H Lymphocytes % (Manual) 10 L Atypical Lymphs % (Man) 2 Monocytes % (Manual) 11 Abs Neuts (Manual) 6.6 Lymphocytes # (Manual) 0.9 L Atyp Lymphs # (Manual) 0.2 Monocytes # (Manual) 0.9 Toxic Granulation PRESENT Toxic Vacuolation PRESENT Dohle Bodies PRESENT Platelet Estimate NORMAL Plt Morphology Comment NORMAL RBC Morphology NORMAL Anion Gap 26 H 25 H Estim Creat Clear Calc 10.1 9.5 Estimated GFR 10 10 POC Glucose 110 Random Glucose 132 H 117 H Lactic Acid 1.3 Calcium 8.1 L D 8.2 L Magnesium 1.9 1.9 Total Bilirubin 0.3 AST 27 ALT 21 Alkaline Phosphatase 84 Total Protein 7.9 Albumin 3.9 Lipase 23 Assessment and Plan (1) C. difficile colitis: Status: Acute Plan Pt is a 70-year-old female with a PMH significant for?HTN, Crohn's disease, colorectal cancer with pulmonary metastasis status post colectomy 2018, chemotherapy and radiation, recurrence in 05/2024 status post chemotherapy who presents to the ED with?N/V/D and generalized weakness x4 days. Pt is admitted to the hospital to BREANNE in the setting of intractable N/V/D and abd pain secondary to enteritis vs. partial SBO. Likely acute C diff colitis with sepsis Pt with N/V/D and abd pain x4 days prior to presentation CTA of abdomen/pelvis showing question of enteritis vs SBO Has been having consistent diarrhea, high-output ostomy; SBO less likely Similar imaging results found on routine f/u CT/MRI 3 weeks ago Meets SIRS criteria with tachycardia and tachypnea; no fever, leukocytosis, or lactic acidosis Tested positive for C diff gene, negative for toxin Initially treated with empiric Zosyn x2 days, will DC Empirically treat with vancomycin 125 mg p.o. q.6 times 10 days, day 1 General surgery consult, report pt does not appear clinically obstructed but rather suggestive of gastroenteritis Pt prefers to be transferred to [facility] if needs surgical intervention Clear liquid diet, advance as tolerated Infectious disease consult BREANNE with high anion gap metabolic acidosis Cr further increase to 4.50 today (baseline 0.90), BUN 117 Maribell PADILLA from severe hypovolemia from above Nephrology consulted, IVF changed to sodium bicarbonate with dextrose Following urine eosinophils, complements, hepatitis panel, and HIV Follow creatinine Hyponatremia Initial sodium 128 In the setting of above Pt placed on IVF Monitor Sodium Tachycardia Pt with frequent PACs and persistent tachycardia as high as 130s Asymptomatic, though pt reports feels anxious about her condition Likely multifactorial: Secondary to anxiety and hypovolemia Monitor on telemetry, treat as above Consider cardiology consult if tachycardia persistent HTN Continue amlodipine Full Code DVT Prophylaxis: Lovenox Pt requires continued hospitalization due to worsening BREANNE requiring continued IVF, specialist consultation with Nephrology, and close monitoring of labs. Pt will also require continued monitoring for resolution of diarrhea due to likely C diff colitis. Quality Stroke Does the patient have a stroke diagnosis?: No VTE Prior VTE?: No VTE Risk Level:: Medical - moderate - high VTE Device Contraindication: Treatment Not Indicated VTE Drug Contraindication: N/A - Med Ordered
[2025-08-23 14:07] LABS: HBS Num1 0.18 mIU/mL (0-7.99); HBc Num1 0.18 S/CO (0.00-0.79); HBsAGNum1 0.41 S/CO (0.00-0.99); HIV Num 1 0.98 S/CO (0.00-0.99); Hepatitis B Surface Antigen Negative (Negative); ~HepC Num1 0.31 S/CO (0.00-0.79); ~Hepatitis B Surface Antibody NONREACTIVE (Nonreactive); ~Hepatitis C Antibody Nonreactive (Nonreactive)
--- NOTE | 2025-08-23 14:11 | MHC.CM.PN ---
pt lives with is indepedent [place] ride home dc plan home no services
[2025-08-23 17:26] LABS: Appearance Urine Cloudy; Glucose Urine UA Negative (Negative); PH 5.5 (5.0-9.0); Specific Gravity - Urine 1.015 (1.005-1.025); UMIC TRIGGER UACC YES
[2025-08-23 17:29] LABS: UACC Culture Trigger YES
[2025-08-23 17:58] LABS: CDIFF Internal ctrl Dots and bkg OK (V); CDiff Toxin Negative (Negative)
[2025-08-23 18:03] LABS: CDiff Gene PCR POSITIVE (Negative)
[2025-08-24] VITALS (8 sets, daily range): BP systolic 91–110; BP diastolic 52–62; PULSE 62–119; RESP 16–18; TEMP 36.1–36.6; O2SAT 91–96
--- NOTE | 2025-08-24 08:14 | P.PNGS_ITS ---
Subjective Subjective Date of Service: 08/24/25 Interval history: Denies complaints Stoma with good function Says she feels well overall Physical Exam 2 Vital Signs: Vital Signs: Last Vital Signs Temp 97.1 F 08/24/25 07:10 Pulse 100 08/24/25 07:10 Resp 18 08/24/25 07:10 BP 101/53 L 08/24/25 07:10 Pulse Ox 96 08/24/25 07:10 O2 Del Method Room Air 08/24/25 07:10 BMI result Body Mass Index 19.4 Const: Other: Frail looking General: comfortable and no acute distress Resp: Effort & Inspection: normal respiratory effort Cardio: Rate: regular rate GI: Other: Stoma with good output Palpation (GI): Soft to palpation, not firm, nontender and no guarding Objective Data Active Medications Acetaminophen (Acetaminophen 325 Mg Tablet) 650 mg PO Q6H PRN PRN Reason: Pain, Mild 1-3,fever,headache Last Admin: 08/23/25 20:31 Dose: 650 mg Documented By: GUSTAVO Amlodipine Besylate (Amlodipine Besylate 5 Mg Tablet) 5 mg PO DAILY [facility]; Protocol Last Admin: 08/23/25 09:49 Dose: 5 mg Documented By: DANITZA Calcium Carbonate (Calcium Carbonate 750 Mg Tab.Chew) 750 mg PO Q4H PRN PRN Reason: Heartburn Enoxaparin Sodium (Enoxaparin Sodium 40 Mg/0.4 Ml Syringe) 40 mg SUBCUT Q24H [facility] Last Admin: 08/23/25 20:31 Dose: 40 mg Documented By: GUSTAVO Lactated Ringer's (Lr) 1,000 mls @ 0 mls/hr IV .Q0M [facility] Sodium Bicarbonate 150 meq/ (Dextrose) 1,000 mls @ 100 mls/hr IV .Q10H [facility] Last Admin: 08/23/25 23:55 Dose: 100 mls/hr Documented By: GUSTAVO Magnesium Hydroxide (Milk Of Magnesia 30 Ml Oral.Susp) 30 ml PO DAILY PRN PRN Reason: Constipation Melatonin (Melatonin 3 Mg Tablet) 6 mg PO BEDTIME PRN PRN Reason: Insomnia Morphine Sulfate (Morphine Sulfate 4 Mg/Ml Cartridge) 2 mg IVPUSH Q4H PRN; Protocol PRN Reason: Pain, Severe (Pain Scale 7-10) Last Admin: 08/22/25 17:05 Dose: 2 mg Documented By: ELENA Ondansetron HCl (Ondansetron Hcl 4 Mg/2 Ml Vial) 4 mg IVPUSH Q8H PRN PRN Reason: Nausea and Vomiting Sodium Chloride (0.9 % Sodium Chloride Flush 3 Ml Syringe) 3 ml IVFLUSH QSHIFT [facility] Last Admin: 08/23/25 20:37 Dose: Not Given Documented By: GUSTAVO Non-Admin Reason: IV Running Vancomycin HCl (Vancomycin Hcl 125 Mg Capsule) 125 mg PO Q6H [facility] Last Admin: 08/24/25 06:11 Dose: 125 mg Documented By: GUSTAVO Labs 08/23/25 03:54 08/23/25 03:54 Labs: Laboratory Results - last 24 hr 08/23/25 08/23/25 08/23/25 12:29 14:56 17:12 Urine Color Yellow Urine Appearance Cloudy Urine pH 5.5 Ur Specific [place] 1.015 Urine Protein 100 (2+) H Urine Glucose (UA) Negative Urine Ketones Negative Urine Blood Large (3+) H Urine Nitrite Negative Ur Leukocyte Esterase Large (3+) H Urine RBC 6-10 H Urine WBC >50 H Ur Squamous Epith Cells 0-2 Urine Bacteria None Seen Hyaline Casts 3-5 C. difficile Tox B Gene POSITIVE A* C. difficile Toxin A&B Negative C. difficile Interpret SEE NOTE Hep Bs Antigen Negative Hep Bs Antibody NONREACTIVE Hep B Core Total Ab Nonreactive Hepatitis C Ab (EIA) Nonreactive HIV 1&2 Ab/P24 Ag 4thGn Nonreactive Microbiology Microbiology Results: Microbiology 08/22/25 13:45 Blood Culture - Preliminary Blood - Venous No growth after 24 hours. 08/22/25 13:44 Blood Culture - Preliminary Blood - Venous No growth after 24 hours. Procedures Date of Service Date of Service: 08/24/25 Progress Note: A&P Assessment and plan (1) Enteritis: Status: Acute Assessment and Plan: With metastatic and recurrent rectal cancer Tested positive for C diff Abdomen is soft and benign No surgical intervention Diet as tolerated Reconsult as needed Time Spent With Patient Time: Total time managing care of this patient today ____ minutes. Quality Stroke Does the patient have a stroke diagnosis?: No VTE Prior VTE?: No VTE Risk Level:: Medical - moderate - high VTE Device Contraindication: Treatment Not Indicated VTE Drug Contraindication: N/A - Med Ordered
[2025-08-24 08:16] LABS: Anion Gap 21 (12-20); Blood Urea Nitrogen 118 mg/dL (9-16); Calcium 7.7 mg/dL (8.4-10.2); Carbon Dioxide 27 mmol/L (22-29); Chloride 88 mmol/L (96-108); Creatinine Clr Calc Pharmacy 7.4; Estimated Glomerular Filt Rate 8; Potassium 3.1 mmol/L (3.3-5.1); Sodium 133 mmol/L (135-145)
[2025-08-24 09:10] LABS: E. coli EAEC Not Detected (Not Detect.); E. coli EPEC Not Detected (Not Detect.); E. coli ETEC Not Detected (Not Detect.); E. coli STEC Not Detected (Not Detect.); Shigella sp./EIEC Not Detected (Not Detect.)
[2025-08-24 09:28] LABS: EOS Counted 0 CELLS; EOS QC POS YES; EOS Stain Quality OK YES; WBC, Counted 100 CELLS
[2025-08-24] MEDS: Potassium Chloride Packet 20 MEQ PACKET 40 MEQ PO (09:29)
--- NOTE | 2025-08-24 09:44 | P.PNNP_ITS ---
Subjective Subjective Date of Service: 08/24/25 Interval history: States she feels a bit better, continues to have output through colectomy pouch Creatinine continues to increase, up to 5.52 today Physical Exam 2 Vital Signs: Vital Signs: Last Vital Signs Temp 97.1 F 08/24/25 07:10 Pulse 100 08/24/25 07:10 Resp 18 08/24/25 07:10 BP 101/53 L 08/24/25 09:30 Pulse Ox 96 08/24/25 07:10 O2 Del Method Room Air 08/24/25 07:10 BMI result Body Mass Index 19.4 General: Elderly lady in mild acute distress, ill appearing and tired appearing Nutritional Appearance: Poor nourished and underweight Eyes: appearance normal, both eyes and all related structures; Alignment and Position: alignment normal and position normal Neck: No lymphadenopathy, no thyromegaly Resp: bilateral air entry equal, occasional added sounds present Cardio: Regular rate, regular rhythm; Heart sounds: S1 normal heart sound present and S2 normal heart sound present GI: soft, nontender, no guarding, no hepatosplenomegaly, colectomy pouch in the left iliac area : bladder normal to inspection, bladder normal to palpation, no renal angle tenderness Skin: no rashes or lesions noted and elasticity normal Neuro: oriented to person, oriented to place, oriented to time and moves all extremities Objective Data Labs 08/23/25 03:54 08/24/25 07:29 Labs: Laboratory Results - last 24 hr 08/23/25 08/23/25 08/23/25 12:29 14:56 17:12 Sodium Potassium Chloride Carbon Dioxide Anion Gap BUN Creatinine Estim Creat Clear Calc Estimated GFR Random Glucose Calcium Urine Color Yellow Urine Appearance Cloudy Urine pH 5.5 Ur Specific [place] 1.015 Urine Protein 100 (2+) H Urine Glucose (UA) Negative Urine Ketones Negative Urine Blood Large (3+) H Urine Nitrite Negative Ur Leukocyte Esterase Large (3+) H Urine RBC 6-10 H Urine WBC >50 H Ur Squamous Epith Cells 0-2 Urine Bacteria None Seen Hyaline Casts 3-5 Urine Eosinophils % 0.0 C. difficile Tox B Gene POSITIVE A* C. difficile Toxin A&B Negative C. difficile Interpret SEE NOTE Hep Bs Antigen Negative Hep Bs Antibody NONREACTIVE Hep B Core Total Ab Nonreactive Hepatitis C Ab (EIA) Nonreactive HIV 1&2 Ab/P24 Ag 4thGn Nonreactive 08/24/25 07:29 Sodium 133 L Potassium 3.1 L D Chloride 88 L Carbon Dioxide 27 Anion Gap 21 H BUN 118 H Creatinine 5.52 H* Estim Creat Clear Calc 7.4 Estimated GFR 8 Random Glucose 103 Calcium 7.7 L D Urine Color Urine Appearance Urine pH Ur Specific [place] Urine Protein Urine Glucose (UA) Urine Ketones Urine Blood Urine Nitrite Ur Leukocyte Esterase Urine RBC Urine WBC Ur Squamous Epith Cells Urine Bacteria Hyaline Casts Urine Eosinophils % C. difficile Tox B Gene C. difficile Toxin A&B C. difficile Interpret Hep Bs Antigen Hep Bs Antibody Hep B Core Total Ab Hepatitis C Ab (EIA) HIV 1&2 Ab/P24 Ag 4thGn Microbiology Microbiology Results: Microbiology 08/22/25 13:45 Blood - Venous Blood Culture - Preliminary No growth after 24 hours. 08/22/25 13:44 Blood - Venous Blood Culture - Preliminary No growth after 24 hours. Procedures Date of Service Date of Service: 08/24/25 Assessment & Plan Assessment and plan (1) Hypertension: Status: Acute (2) BREANNE (acute kidney injury): Status: Acute (3) C. difficile colitis: Status: Acute Plan Acute kidney injury: Patient possibly has an acute tubular necrosis secondary to severe volume depletion from diarrhea and poor oral intake as creatinine tends to go up despite volume replacement Baseline creatinine 0.8, increased to 4.2 upon admission, increased to 5.52 this morning Hypokalemia secondary to sodium bicarb infusion and alkalosis; volume status on the lower side. Bedside echo showing good cardiac contractility, tachycardia, IVC small and collapsing. We will give her some albumin in patient's TID, we will increase IV fluids LR to 125 cc hour. No emergent indication for renal replacement therapy; will continue to closely monitor renal function Urinalysis showing 3+ protein, 3+ blood, greater than 20 RBCs, greater than 50 WBCs. Need to quantify proteinuria once BREANNE settles down. negative urine eosinophils, hepatitis panel, HIV. Pending complements, LINH No acute indication for renal replacement therapy, continue IV fluids for now. Avoid nephrotoxic agents, contrast, MAUREEN/ARB. High anion gap metabolic acidosis: improved, currently bicarb 27. AG 21 suggesting combined of high anion gap metabolic acidosis with concurrent alkalosis will switch the fluids from sodium bicarb to ringers lactate. Hypertension: Blood pressure is soft, on lower side will withold amlodipine. Time Spent With Patient Time: Total time managing care of this patient today ____ minutes. Progress Note: Quality Stroke Does the patient have a stroke diagnosis?: No
[2025-08-24] MEDS: Lactated Ringers 1,000 ML 100 ML IVCONT (10:56)
--- NOTE | 2025-08-24 11:28 | P.CONCA_ITS ---
History of Present Illness History of Present Illness Date of Service: 08/24/25 Requesting physician: Jewels Kidd Consult reason: other (Atrial arrhythmias, tachycardia) Chief complaint: BREANNE Narrative: I was consulted to see Davina Durán in cardiology consultation today for rapid heart rate with atrial arrhythmias. Patient is 70-year-old female admitted with C difficile colitis with a acute kidney injury with worsening renal function. She says that this morning she has been having more urine output than last few days. This is a good sign although creatinine is further elevated. She has been seen by Nephrology and bedside evaluation suggested collapse IVC and hypovolemia. Patient on monitor was noted to be tachycardic and was having frequent PACs as well had very short bursts of what appears to be atrial fibrillation with rapid ventricular response. She had no symptoms of palpitation or fluttering. She denies any chest pain. Blood pressure is on the softer side. No prior history of atrial fibrillation. She did have NSTEMI recently and subsequent workup had shown normal myocardial perfusion ruling out obstructive CAD. Was felt that NSTEMI was secondary to her acute medical illness. She generally has high blood pressure at home on amlodipine therapy which was continued which has been held by renal team at this point time. Review of Systems 2 Constitutional: Constitutional: Reports lethargy and Reports weakness Eyes: Eyes: Reports no additional eye complaints Cardiovascular: Cardiovascular: Reports no additional cardiovascular complaints Respiratory: Respiratory: Reports no additional respiratory complaints Gastrointestinal: Gastrointestinal: Reports diarrhea Genitourinary: Genitourinary: Reports no additional female genitourinary complaints Musculoskeletal: Musculoskeletal: Reports no additional musculoskeletal complaints Integumentary/Breasts: Skin/Breast: Reports system reviewed and no additional complaints, except as docu Neurologic: Reports system reviewed and no additional complaints, except as documented and Reports weakness Psychiatric: Psychiatric: Reports no additional psychiatric complaints [facility] Past Medical History Medical History Anemia of chronic disease Hypertension Ureteral stent present Lung cancer Cancer of colon with rectum Family History Family History Father Colon cancer Heart attack Surgical History Surgical History S/P colon resection S/P CARLOS MANUEL-BSO (total abdominal hysterectomy and bilateral salpingo-oophorectomy) Hx of appendectomy Hx of tonsillectomy Social History Social History Household Members: Spouse Housing: Condominium Do you presently have visiting nurse or other home services: No Alcohol intake: never Patient Tobacco Use Status: Former Tobacco user Tobacco use type: Cigarette Second Hand Smoke Exposure: No service: No Current occupational status: disabled Cognitive needs: No Hearing needs: No Vision needs: Yes (reading glasses) Meds Allergies Allergy/AdvReac Type Severity Reaction Status Date / Time infliximab (Remicade) AdvReac Unknown arthralgia Verified 08/22/25 11:27 salacyclic acid wart remover Allergy Unknown hives, Uncoded 08/22/25 11:27 swollen joints Asacol AdvReac Unknown GI upset Uncoded 08/22/25 11:27 Active Medications: Current Medications Acetaminophen (Acetaminophen 325 Mg Tablet) 650 mg PO Q6H PRN PRN Reason: Pain, Mild 1-3,fever,headache Last Admin: 08/23/25 20:31 Dose: 650 mg Amlodipine Besylate (Amlodipine Besylate 5 Mg Tablet) 5 mg PO DAILY [facility]; Protocol On Hold: 08/24/25 09:52 Last Admin: 08/24/25 09:30 Dose: 5 mg Calcium Carbonate (Calcium Carbonate 750 Mg Tab.Chew) 750 mg PO Q4H PRN PRN Reason: Heartburn Heparin Sodium (Porcine) (Heparin Sodium,Porcine 5,000 Unit/Ml Vial) 5,000 unit SUBCUT Q12H [facility] Levofloxacin (Levaquin) 250 mg in 50 mls @ 50 mls/hr IV Q48H [facility] Last Admin: 08/24/25 09:38 Dose: 50 mls/hr Lactated Ringer's (Lr) 1,000 mls @ 100 mls/hr IVCONT .Q10H [facility] Last Admin: 08/24/25 10:56 Dose: 100 mls/hr Magnesium Hydroxide (Milk Of Magnesia 30 Ml Oral.Susp) 30 ml PO DAILY PRN PRN Reason: Constipation Melatonin (Melatonin 3 Mg Tablet) 6 mg PO BEDTIME PRN PRN Reason: Insomnia Morphine Sulfate (Morphine Sulfate 4 Mg/Ml Cartridge) 2 mg IVPUSH Q4H PRN; Protocol PRN Reason: Pain, Severe (Pain Scale 7-10) Last Admin: 08/22/25 17:05 Dose: 2 mg Ondansetron HCl (Ondansetron Hcl 4 Mg/2 Ml Vial) 4 mg IVPUSH Q8H PRN PRN Reason: Nausea and Vomiting Sodium Chloride (0.9 % Sodium Chloride Flush 3 Ml Syringe) 3 ml IVFLUSH QSHIFT [facility] Last Admin: 08/24/25 09:31 Dose: Not Given Vancomycin HCl (Vancomycin Hcl 125 Mg Capsule) 125 mg PO Q6H [facility] Last Admin: 08/24/25 06:11 Dose: 125 mg Home Medications ?Medication ?Instructions ?Recorded ?Confirmed ?Last Taken ?Type ketoconazole 2 % topical cream 1 appl topical QD-BID P RN Rash 08/22/25 08/22/25 Unknown History trospium 20 mg tablet 20 mg PO BID 08/22/25 Unknown History Physical Exam 2 Vital Signs: Vital Signs: Last Vital Signs Temp 97.1 F 08/24/25 07:10 Pulse 100 08/24/25 07:10 Resp 18 08/24/25 07:10 BP 101/53 L 08/24/25 09:30 Pulse Ox 96 08/24/25 07:10 O2 Del Method Room Air 08/24/25 07:10 BMI result Body Mass Index 19.4 Const: General: cooperative, comfortable, no acute distress, alert and awake Nutritional Appearance: average body habitus Orientation/consciousness: p atient oriented x3 HEENT: Head: Yes normocephalic and Yes atraumatic Neck: Neck: Yes trachea midline, Yes supple and Yes no JVD Resp: Effort & Inspection: normal respiratory effort Auscultation: clear to auscultation bilaterally Cardio: Jugular venous distension: no JVD Rate: tachycardic Rhythm: a bnormal rhythm with ectopic beats Heart sounds: S1 normal heart sound present, S2 normal heart sound present, no click, no gallops, no murmurs and no rubs GI: Auscultation: normal bowel sounds Skin: General skin exam: no rashes or lesions noted Neuro: General: patient oriented x3 and no focal motor deficits Extrem: General: Yes no clubbing, cyanosis or edema Objective Labs and Meds 08/23/25 03:54 08/24/25 07:29 Lab results: Laboratory Results - last 24 hr 08/23/25 08/23/25 08/23/25 12:29 14:56 17:12 Sodium Potassium Chloride Carbon Dioxide Anion Gap BUN Creatinine Estim Creat Clear Calc Estimated GFR Random Glucose Calcium Urine Color Yellow Urine Appearance Cloudy Urine pH 5.5 Ur Specific [place] 1.015 Urine Protein 100 (2+) H Urine Glucose (UA) Negative Urine Ketones Negative Urine Blood Large (3+) H Urine Nitrite Negative Ur Leukocyte Esterase Large (3+) H Urine RBC 6-10 H Urine WBC >50 H Ur Squamous Epith Cells 0-2 Urine Bacteria None Seen Hyaline Casts 3-5 Urine Eosinophils % 0.0 Stl C. cayetanensis PCR Not Detected Stool Rotavirus A PCR Not Detected Stl Adenov F 40/ PCR Not Detected Stool Astrovirus (PCR) Not Detected Stool Campylobacter PCR Not Detected Stool Cryptosporidium PCR Not Detected Stl Sh Tox Pr E STEC PCR Not Detected Stool E coli O157 PCR Not applicable Stl Enterotoxigenic E PCR Not Detected Stool EPEC (PCR) Not Detected Stool EAEC (PCR) Not Detected Stl E. histolytica PCR Not Detected Stool Giardia Lamblia PCR Not Detected Stl P. shigelloides PCR Not Detected Stool Salmonella PCR Not Detected Stool Sapovirus (PCR) Not Detected Stl Shigella/EIEC PCR Not Detected St Y.enterocolitica PCR Not Detected Stool Vibrio (PCR) Not Detected Stl Vibrio cholerae PCR Not Detected Stl Norovirus GI/GII PCR Not Detected C. difficile Tox B Gene POSITIVE A* C. difficile Toxin A&B Negative C. difficile Interpret SEE NOTE Hep Bs Antigen Negative Hep Bs Antibody NONREACTIVE Hep B Core Total Ab Nonreactive Hepatitis C Ab (EIA) Nonreactive HIV 1&2 Ab/P24 Ag 4thGn Nonreactive 08/24/25 07:29 Sodium 133 L Potassium 3.1 L D Chloride 88 L Carbon Dioxide 27 Anion Gap 21 H BUN 118 H Creatinine 5.52 H* Estim Creat Clear Calc 7.4 Estimated GFR 8 Random Glucose 103 Calcium 7.7 L D Urine Color Urine Appearance Urine pH Ur Specific [place] Urine Protein Urine Glucose (UA) Urine Ketones Urine Blood Urine Nitrite Ur Leukocyte Esterase Urine RBC Urine WBC Ur Squamous Epith Cells Urine Bacteria Hyaline Casts Urine Eosinophils % Stl C. cayetanensis PCR Stool Rotavirus A PCR Stl Adenov F 40/ PCR Stool Astrovirus (PCR) Stool Campylobacter PCR Stool Cryptosporidium PCR Stl Sh Tox Pr E STEC PCR Stool E coli O157 PCR Stl Enterotoxigenic E PCR Stool EPEC (PCR) Stool EAEC (PCR) Stl E. histolytica PCR Stool Giardia Lamblia PCR Stl P. shigelloides PCR Stool Salmonella PCR Stool Sapovirus (PCR) Stl Shigella/EIEC PCR St Y.enterocolitica PCR Stool Vibrio (PCR) Stl Vibrio cholerae PCR Stl Norovirus GI/GII PCR C. difficile Tox B Gene C. difficile Toxin A&B C. difficile Interpret Hep Bs Antigen Hep Bs Antibody Hep B Core Total Ab Hepatitis C Ab (EIA) HIV 1&2 Ab/P24 Ag 4thGn Assessment and Plan (1) Atrial arrhythmia: Status: Acute Atrial arrhythmias including frequent PACs now and short bursts of atrial fibrillation yesterday multiple bouts although with no symptoms. This is most likely due to cardiac excitability induced by her acute medical illness including C diff colitis as well as acute kidney injury. Clinically she does not appear to be hypervolemic. She is not having any symptoms. Improving urine output is a good sign for her acute kidney injury. I would continue with IV hydration at this point time as she appears to be relatively hypovolemic. If blood pressure allows I would also add low-dose metoprolol 12.5 mg q.6 hours to reduce cardiac excitability and risk of developing atrial arrhythmias. If she persists with having recurrent atrial arrhythmias or sustained atrial fibrillation will consider alternative therapy with amiodarone and may need oral anticoagulation therapy. No indication for oral anticoagulation therapy at this point time. Echocardiogram is appropriate although not urgent. Will sign of the case and follow if need be. Thank you for allowing me to partake in her care Procedures Date of Service Date of Service: 08/24/25
--- NOTE | 2025-08-24 16:16 | MHC.CM.PN ---
EMR REVIEWED AND PER MD ROUNDS, PATIENT IS NOT MEDICALLY CLEARED FOR DISCHARGE DUE TO MANAGEMENT OF C. DIFF COLITIS/SEPSIS.
--- NOTE | 2025-08-24 16:31 | W.PM.IDCN ---
History of Present Illness Data of Consult Service Date: 08/24/25 Requesting physician: Jewels Kidd Primary Care Provider: TERRY Hernandez HPI Reason for consult: diarrhea,Cdiff pcr positive She presents with diarrhea over last two days. She had scanning done to evaluate for malignancy and found to have possible SBO. She has no symptoms at that time but diarrhea for two days. She has Cdiff PCR positive. She has had enterobacter in urine before but denies any hematuria or pelvic discomfort. Review of Systems Review of Systems: Yes all other systems are reviewed and are negative [facility] Past Medical History Medical History Anemia of chronic disease Hypertension Ureteral stent present Lung cancer Cancer of colon with rectum Family History Family History Father Colon cancer Heart attack Family history: reviewed and not pertinent Surgical History Surgical History S/P colon resection S/P CARLOS MANUEL-BSO (total abdominal hysterectomy and bilateral salpingo-oophorectomy) Hx of appendectomy Hx of tonsillectomy Social History Social History Household Members: Spouse Housing: Condominium Do you presently have visiting nurse or other home services: No Alcohol intake: never Patient Tobacco Use Status: Former Tobacco user Tobacco use type: Cigarette Second Hand Smoke Exposure: No service: No Current occupational status: disabled Cognitive needs: No Hearing needs: No Vision needs: Yes (reading glasses) Meds Allergies Allergy/AdvReac Type Severity Reaction Status Date / Time infliximab (Remicade) AdvReac Unknown arthralgia Verified 08/22/25 11:27 salacyclic acid wart remover Allergy Unknown hives, Uncoded 08/22/25 11:27 swollen joints Asacol AdvReac Unknown GI upset Uncoded 08/22/25 11:27 Active Medications: Current Medications Acetaminophen (Acetaminophen 325 Mg Tablet) 650 mg PO Q6H PRN PRN Reason: Pain, Mild 1-3,fever,headache Last Admin: 08/23/25 20:31 Dose: 650 mg Amlodipine Besylate (Amlodipine Besylate 5 Mg Tablet) 5 mg PO DAILY [facility]; Protocol On Hold: 08/24/25 09:52 Last Admin: 08/24/25 09:30 Dose: 5 mg Calcium Carbonate (Calcium Carbonate 750 Mg Tab.Chew) 750 mg PO Q4H PRN PRN Reason: Heartburn Heparin Sodium (Porcine) (Heparin Sodium,Porcine 5,000 Unit/Ml Vial) 5,000 unit SUBCUT Q12H ON LICENSE OF [facility] Levofloxacin (Levaquin) 250 mg in 50 mls @ 50 mls/hr IV Q48H ON LICENSE OF [facility] Last Infusion: 08/24/25 10:38 Dose: Infused Lactated Ringer's (Lr) 1,000 mls @ 125 mls/hr IVCONT .Q8H ON LICENSE OF [facility] Last Infusion: 08/24/25 11:52 Dose: 125 mls/hr Magnesium Hydroxide (Milk Of Magnesia 30 Ml Oral.Susp) 30 ml PO DAILY PRN PRN Reason: Constipation Melatonin (Melatonin 3 Mg Tablet) 6 mg PO BEDTIME PRN PRN Reason: Insomnia Metoprolol Tartrate (Metoprolol Tartrate 12.5 Mg Halftab) 12.5 mg PO Q6H ON LICENSE OF [facility]; Protocol Morphine Sulfate (Morphine Sulfate 4 Mg/Ml Cartridge) 2 mg IVPUSH Q4H PRN; Protocol PRN Reason: Pain, Severe (Pain Scale 7-10) Last Admin: 08/22/25 17:05 Dose: 2 mg Ondansetron HCl (Ondansetron Hcl 4 Mg/2 Ml Vial) 4 mg IVPUSH Q8H PRN PRN Reason: Nausea and Vomiting Sodium Chloride (0.9 % Sodium Chloride Flush 3 Ml Syringe) 3 ml IVFLUSH QSHIFT ON LICENSE OF [facility] Last Admin: 08/24/25 09:31 Dose: Not Given Vancomycin HCl (Vancomycin Hcl 125 Mg Capsule) 125 mg PO Q6H ON LICENSE OF [facility] Last Admin: 08/24/25 12:36 Dose: 125 mg Home Medications ?Medication ?Instructions ?Recorded ?Confirmed ?Last Taken ?Type ketoconazole 2 % topical cream 1 appl topical QD-BID PRN Rash 08/22/25 08/22/25 Unknown History trospium 20 mg tablet 20 mg PO BID 08/22/25 08/22/25 Unknown History Physical Exam Vital Signs: Vital Signs: Last Vital Signs Temp 97.3 F 08/24/25 15:32 Pulse 119 H 08/24/25 15:32 Resp 18 08/24/25 15:32 BP 105/58 L 08/24/25 15:32 Pulse Ox 94 08/24/25 15:32 O2 Del Method Room Air 08/24/25 15:32 BMI result Body Mass Index 19.4 Const: General: cooperative HEENT: Head: Yes normal to inspection Face and sinus: Yes normal facial exam Mouth: Normal oral and palatal mucosa present Teeth and gingiva: dentition normal Eyes: General: appearance normal, both eyes and all related structures Pupils: Equal, round and reactive pupils present Resp: Effort & Inspection: normal respiratory effort Cardio: Rate: regular rate Rhythm: regular rhythm GI: Palpation (GI): Soft to palpation and nontender : General: Yes no CVA tenderness Back/Spine/Pelvis: Back: no CVA tenderness Skin: General skin exam: no rashes or lesions noted Neuro: General: moves all extremities Cranial nerves: Yes Equal, round and reactive pupils present Extrem: General: Yes normal to inspection Psych: Appearance: grossly normal Results Labs 08/23/25 03:54 08/24/25 07:29 Labs: BMP 08/24/25 07:29 Sodium 133 L Potassium 3.1 L D Chloride 88 L Carbon Dioxide 27 BUN 118 H Creatinine 5.52 H* Calcium 7.7 L D Urine 08/23/25 Range/Units 17:12 Urine Color Yellow Urine Appearance Cloudy Urine pH 5.5 (5.0-9.0) Ur Specific [place] 1.015 (1.005-1.025) Urine Protein 100 (2+) H (Neg-Trace) mg/dL Urine Glucose (UA) Negative (Negative) mg/dL Microbiology Microbiology Results: Microbiology 08/22/25 13:45 Blood - Venous Blood Culture - Preliminary No growth after 48 hours. 08/22/25 13:44 Blood - Venous Blood Culture - Preliminary No growth after 48 hours. 08/23/25 Unknown Urine clean catch - Clean Catch Midstream Urine Culture - Preliminary Culture too young to evaluate. Assessment and Plan (1) C. difficile colitis: Status: Acute Plan Cdiff toxin may be below limit of detection and patient is symptomatic so would give po Vancomycin 125 mg qid for 10 days.
[2025-08-24] MEDS: Metoprolol Tartrate 12.5 MG HALFTAB PO ×2 (16:33→21:09)
--- NOTE | 2025-08-24 18:06 | P.PNIM_ITS ---
Subjective Subjective Date of Service: 08/24/25 Interval History: Reports feels better Has tolerated clear liquid diet without incident No nausea, vomiting, abdominal pain Creatinine continues to increase, currently 5.52 Potassium noted to be low Good output in colostomy bag Review of Systems Review of Systems: Yes all other systems are reviewed and are negative Physical Exam 2 Exam: Exam: General: AOx3, no acute distress Resp: CTA bilaterally CVS: Regularly irregular rhythm, tachycardic GI: +BS, no distention. Overall benign and NT. Colostomy filled with brown- colored liquid stool. Skin: Warm, dry Neuro: Cranial nerves II-XII grossly intact bilaterally. Motor grossly intact bilaterally Extremities: No edema Psych: Appropriate affect Vital Signs: Vital Signs: Last Vital Signs Temp 97.3 F 08/24/25 15:32 Pulse 119 H 08/24/25 15:32 Resp 18 08/24/25 15:32 BP 105/58 L 08/24/25 15:32 Pulse Ox 94 08/24/25 15:32 O2 Del Method Room Air 08/24/25 15:32 BMI result Body Mass Index 19.4 Objective Data Active Medications Acetaminophen (Acetaminophen 325 Mg Tablet) 650 mg PO Q6H PRN PRN Reason: Pain, Mild 1-3,fever,headache Last Admin: 08/23/25 20:31 Dose: 650 mg Documented By: GUSTAVO Amlodipine Besylate (Amlodipine Besylate 5 Mg Tablet) 5 mg PO DAILY [facility]; Protocol On Hold: 08/24/25 09:52 Last Admin: 08/24/25 09:30 Dose: 5 mg Documented By: DIYA Calcium Carbonate (Calcium Carbonate 750 Mg Tab.Chew) 750 mg PO Q4H PRN PRN Reason: Heartburn Heparin Sodium (Porcine) (Heparin Sodium,Porcine 5,000 Unit/Ml Vial) 5,000 unit SUBCUT Q12H [facility] Levofloxacin (Levaquin) 250 mg in 50 mls @ 50 mls/hr IV Q48H [facility] Last Infusion: 08/24/25 10:38 Dose: Infused Documented By: DIYA Lactated Ringer's (Lr) 1,000 mls @ 125 mls/hr IVCONT .Q8H [facility] Last Infusion: 08/24/25 11:52 Dose: 125 mls/hr Documented By: DIYA Magnesium Hydroxide (Milk Of Magnesia 30 Ml Oral.Susp) 30 ml PO DAILY PRN PRN Reason: Constipation Melatonin (Melatonin 3 Mg Tablet) 6 mg PO BEDTIME PRN PRN Reason: Insomnia Metoprolol Tartrate (Metoprolol Tartrate 12.5 Mg Halftab) 12.5 mg PO Q6H [facility]; Protocol Last Admin: 08/24/25 16:33 Dose: 12.5 mg Documented By: DIYA Comments: BP 105/58 HR 103 Morphine Sulfate (Morphine Sulfate 4 Mg/Ml Cartridge) 2 mg IVPUSH Q4H PRN; Protocol PRN Reason: Pain, Severe (Pain Scale 7-10) Last Admin: 08/22/25 17:05 Dose: 2 mg Documented By: ELENA Ondansetron HCl (Ondansetron Hcl 4 Mg/2 Ml Vial) 4 mg IVPUSH Q8H PRN PRN Reason: Nausea and Vomiting Sodium Chloride (0.9 % Sodium Chloride Flush 3 Ml Syringe) 3 ml IVFLUSH QSHIFT [facility] Last Admin: 08/24/25 16:33 Dose: Not Given Documented By: DIYA Non-Admin Reason: IV Running Vancomycin HCl (Vancomycin Hcl 125 Mg Capsule) 125 mg PO Q6H [facility] Last Admin: 08/24/25 12:36 Dose: 125 mg Documented By: DIYA Labs 08/23/25 03:54 08/24/25 07:29 Labs: Laboratory Results - last 24 hr 08/23/25 08/23/25 08/23/25 12:29 14:56 17:12 Anion Gap Estim Creat Clear Calc Estimated GFR Random Glucose Calcium Urine Eosinophils % 0.0 Stl C. cayetanensis PCR Not Detected Stool Rotavirus A PCR Not Detected Stl Adenov F 40/41 PCR Not Detected Stool Astrovirus (PCR) Not Detected Stool Campylobacter PCR Not Detected Stool Cryptosporidium PCR Not Detected Stl Sh Tox Pr E STEC PCR Not Detected Stool E coli O157 PCR Not applicable Stl Enterotoxigenic E PCR Not Detected Stool EPEC (PCR) Not Detected Stool EAEC (PCR) Not Detected Stl E. histolytica PCR Not Detected Stool Giardia Lamblia PCR Not Detected Stl P. shigelloides PCR Not Detected Stool Salmonella PCR Not Detected Stool Sapovirus (PCR) Not Detected Stl Shigella/EIEC PCR Not Detected St Y.enterocolitica PCR Not Detected Stool Vibrio (PCR) Not Detected Stl Vibrio cholerae PCR Not Detected Stl Norovirus GI/GII PCR Not Detected Complement C3 154 Complement C4 35 08/24/25 07:29 Anion Gap 21 H Estim Creat Clear Calc 7.4 Estimated GFR 8 Random Glucose 103 Calcium 7.7 L D Urine Eosinophils % Stl C. cayetanensis PCR Stool Rotavirus A PCR Stl Adenov F 40 PCR Stool Astrovirus (PCR) Stool Campylobacter PCR Stool Cryptosporidium PCR Stl Sh Tox Pr E STEC PCR Stool E coli O157 PCR Stl Enterotoxigenic E PCR Stool EPEC (PCR) Stool EAEC (PCR) Stl E. histolytica PCR Stool Giardia Lamblia PCR Stl P. shigelloides PCR Stool Salmonella PCR Stool Sapovirus (PCR) Stl Shigella/EIEC PCR St Y.enterocolitica PCR Stool Vibrio (PCR) Stl Vibrio cholerae PCR Stl Norovirus GI/GII PCR Complement C3 Complement C4 Microbiology Microbiology Results: Microbiology 08/22/25 13:45 Blood Culture - Preliminary Blood - Venous No growth after 48 hours. 08/22/25 13:44 Blood Culture - Preliminary Blood - Venous No growth after 48 hours. 08/23/25 Unknown Urine Culture - Preliminary Urine clean catch - Clean Catch Midstream Culture too young to evaluate. Assessment and Plan (1) BREANNE (acute kidney injury): Status: Acute (2) C. difficile colitis: Status: Acute Plan Pt is a 70-year-old female with a PMH significant for?HTN, Crohn's disease, colorectal cancer with pulmonary metastasis status post colectomy 2018, chemotherapy and radiation, recurrence in 05/2024 status post chemotherapy who presents to the ED with?N/V/D and generalized weakness x4 days. Pt is admitted to the hospital to [facility] in the setting of intractable N/V/D and abd pain secondary to enteritis vs. partial SBO. Likely acute C diff colitis with sepsis Pt with N/V/D and abd pain x4 days prior to presentation CTA of abdomen/pelvis showing question of enteritis vs SBO Has been having consistent diarrhea, high-output ostomy; SBO less likely Similar imaging results found on routine f/u CT/MRI 3 weeks ago Meets SIRS criteria with tachycardia and tachypnea; no fever, leukocytosis, or lactic acidosis Tested positive for C diff gene, negative for toxin Initially treated with empiric Zosyn x2 days, will DC Empirically treat with vancomycin 125 mg p.o. q.6 times 10 days, day 1 General surgery consult, report pt does not appear clinically obstructed but rather suggestive of gastroenteritis Pt prefers to be transferred to [facility] if needs surgical intervention Advanced diet to full solid Infectious disease consulted, continue with oral vanc BREANNE with high anion gap metabolic acidosis Cr further increase to 5.52 today (baseline 0.90), BUN 117 Maribell OSBORNN from severe hypovolemia from above Nephrology consulted, received sodium bicarbonate with dextrose, now on LR Following urine eosinophils, complements, hepatitis panel, and HIV Follow creatinine Question of UTI Pt received Levofloxacin 250mg x1; would be q48h given SCr Hold on additional abx pending urine cultures Hyponatremia Initial sodium 128, now In the setting of above Pt placed on IVF Monitor Sodium Tachycardia Pt with frequent PACs and persistent tachycardia as high as 130s Tele also with some short bursts of rapid AFib Asymptomatic, though pt reports feels anxious about her condition Likely multifactorial: Secondary to anxiety and hypovolemia from CDiff colitis Cardiology consulted, will trial small dose of metoprolol 12.5mg q6h for now No indication for oral anticoagulation at this point Will check echo Monitor on telemetry, treat as above HTN Hold amlodipine as BP soft and now on metoprolol Full Code DVT Prophylaxis: Lovenox Pt requires continued hospitalization due to worsening BREANNE requiring continued IVF, specialist consultation with Nephrology, and close monitoring of labs. Pt will also require continued monitoring for resolution of diarrhea due to likely C diff colitis. Quality Stroke Does the patient have a stroke diagnosis?: No VTE Prior VTE?: No VTE Risk Level:: Medical - moderate - high VTE Device Contraindication: Treatment Not Indicated VTE Drug Contraindication: N/A - Med Ordered
[2025-08-24] MEDS: Albumin Human 25 % 100 ML IV (18:39)
[2025-08-24] MEDS: Lactated Ringers 1,000 ML 125 ML IVCONT (21:08)
[2025-08-25] MEDS: Albumin Human 25 % 100 ML IV ×2 (00:28→04:56)
[2025-08-25 03:16] VITALS: BP 106/51; PULSE 75; RESP 18; TEMP 36.5; O2SAT 92
[2025-08-25] MEDS: Lactated Ringers 1,000 ML 125 ML IVCONT ×2 (04:56→17:39)
[2025-08-25] MEDS: Metoprolol Tartrate 12.5 MG HALFTAB PO ×2 (04:57→21:30)
--- NOTE | 2025-08-25 07:00 | CA_ITS ---
Transthoracic Echocardiogram Patient (Last, First, Middle): Davina Monroy Lee Gender: Female Date of : 1955 Age: 70 Procedure Date: 08/25/2025 Procedure Type: Transthoracic [place] [facility] [place]: 160.02 cm Weight: 49.44 kg BSA: 1.49 m2 Heart Rate: bpm BP: 106 / 51 mmHg Clinical Orthoptist: TO Referring MD: Jewels STEWART Slot Service Specialist: Adolfo Sow MD Symptoms: Persistent tachycardia, ?AFib on tele Study Quality: Adequate ECG Rhythm: Sinus with extra beats Conclusions: - 1. Normal LV ejection fraction of 60 65% with grade 1 diastolic dysfunction 2. Normal cardiac valvular Dopplers 3. Mildly elevated right ventricular systolic pressure with normal right atrial pressures 4. No gross pericardial effusion Findings Left Ventricle Normal left ventricular size, thickness, and systolic function. The visually estimated ejection fraction is between 60-65%. Spectral Doppler is indicative of an impaired relaxation filling pattern. E/E prime ratio is <8, consistent with normal filling pressures. Evidence suggests grade I (mild) diastolic dysfunction. Right Ventricle Normal right ventricular cavity size and systolic function. Atria The left atrium is normal in size. There is no evidence of interatrial shunt. The right atrium is normal in size. Aortic Valve Normal aortic valve structure and function. There is no aortic valve stenosis. There is mild aortic valve regurgitation. Mitral Valve Normal mitral valve structure and function. There is mild mitral annular calcification. There is trace mitral valve regurgitation. There is no mitral valve stenosis. Pulmonic Valve The pulmonic valve is likely normal. There is trace to mild pulmonic valve regurgitation. Tricuspid Valve Normal tricuspid valve structure. There is mild tricuspid valve regurgitation. The right ventricular systolic pressure is 41 mmHg. Normal right atrial pressure. Mild pulmonary hypertension is present. Great Vessels All visible segments of the aorta are normal in size. The pulmonary artery was not well visualized. There is no dilatation of the ascending aorta measuring 3.40 cm. Venous The inferior vena cava is normal in size and collapses greater than 50% with inspiration. Pericardium/Pleural There is no evidence of pericardial effusion. Prior Study Comparison Changes noted compared to prior study dated: 09/15/2024. RV systolic pressure is mildly elevated with normal right atrial pressures Measurements 2D Linear Measurements IVSd: 0.96 0.6-0.9/0.6-1.0 cm LVIDd: 4.09 3.9-5.3/4.2-5.9 cm LVIDd Index: 2.74 2.4-3.2/2.2-3.1 cm/m2 LVIDs: 2.52 2.0-3.6 cm LVPWd: 0.89 0.7-1.1 cm LA Diam: 3.50 2.7-3.8/3.0-4.0 cm LAIDs Index: 2.35 1.5-2.3 cm/m2 LV Mass: 147.47 67-162/88-224 g LV Mass Index: 98.98 43-95/49-115 g/m2 LVOT Diam: 2.20 3.0+(-)1.3 cm 2D Systolic Function EF 4C: 65.50 >55% EF 2C: 58.70 >55% EF BiP: 62.60 >55% Mitral Valve MV Pk E: 0.65 MV PK A: 0.91 MV Decel Time: 150.00 E/A: 0.70 E'Lateral: 8.23 E/E' Lat: 7.90 PHT: 44.00 MVA PHT: 5.00 Decel [place]: 4.34 Aortic Valve AoV Pk Nate: 1.64 AoV Pk Grad: 11.00 JOSIAS: 3.08 LVOT LVOT Pk Nate: 1.33 LVOT Mn Nate: 0.77 LVOT VTI: 0.23 LVOT Pk Grad: 7.00 LVOT Mn Grad: 3.00 LVOT Diam: 2.20 LVOT Area: 3.80 Diastolic Function MV Pk E: 0.65 MV Pk A: 0.91 E/A: 0.70 E' Laterial: 8.23 E/E' Lat: 7.90 Right Ventricle TAPSE (mm): 21.20 TVS' Nate: 13.80 Tricuspid Valve TR Pk Nate: 3.10 TR Pk Grad: 38.00 RA Press: 3.00 RVSP: 41.00 Great Vessels Aorta Sinus of Valsalva: 3.11 2.0-3.5 cm Ao Asc: 3.40 2.1-3.4 cm Updated in Other Vendor System with Status of Final Adolfo Sow MD electronically signed on 08/25/2025 12:26:41 PM with status of Final
[2025-08-25 08:00] VITALS: BP 92/51; PULSE 75; RESP 18; TEMP 36.6; O2SAT 96
[2025-08-25 08:03] LABS: Anion Gap 22 (12-20); Blood Urea Nitrogen 110 mg/dL (9-16); Calcium 7.8 mg/dL (8.4-10.2); Carbon Dioxide 24 mmol/L (22-29); Chloride 90 mmol/L (96-108); Creatinine Clr Calc Pharmacy 6.9; Estimated Glomerular Filt Rate 7; Potassium 3.8 mmol/L (3.3-5.1); Sodium 132 mmol/L (135-145)
--- NOTE | 2025-08-25 08:26 | P.PNIM_ITS ---
Subjective Subjective Date of Service: 08/25/25 Interval History: Creatinine continues to increase to 5.91 UA culture still pending Tolerating full solid diet Continues to have significant output in ostomy Reports increased urine output Review of Systems Review of Systems: Yes all other systems are reviewed and are negative Physical Exam 2 Exam: Exam: General: AOx3, no acute distress Resp: CTA bilaterally CVS: Regularly irregular rhythm GI: +BS, no distention. Overall benign and NT. Colostomy filled with brown- colored liquid stool. Skin: Warm, dry Neuro: Cranial nerves II-XII grossly intact bilaterally. Motor grossly intact bilaterally Extremities: No edema Psych: Appropriate affect Vital Signs: Vital Signs: Last Vital Signs Temp 97.8 F 08/25/25 08:00 Pulse 75 08/25/25 08:00 Resp 18 08/25/25 08:00 BP 92/51 L 08/25/25 08:00 Pulse Ox 96 08/25/25 08:00 O2 Del Method Room Air 08/25/25 08:00 BMI result Body Mass Index 19.4 Objective Data Active Medications Acetaminophen (Acetaminophen 325 Mg Tablet) 650 mg PO Q6H PRN PRN Reason: Pain, Mild 1-3,fever,headache Last Admin: 08/23/25 20:31 Dose: 650 mg Documented By: GUSTAVO Amlodipine Besylate (Amlodipine Besylate 5 Mg Tablet) 5 mg PO DAILY [facility]; Protocol On Hold: 08/24/25 09:52 Last Admin: 08/24/25 09:30 Dose: 5 mg Documented By: DIYA Calcium Carbonate (Calcium Carbonate 750 Mg Tab.Chew) 750 mg PO Q4H PRN PRN Reason: Heartburn Heparin Sodium (Porcine) (Heparin Sodium,Porcine 5,000 Unit/Ml Vial) 5,000 unit SUBCUT Q12H [facility] Last Admin: 08/25/25 07:38 Dose: 5,000 unit Documented By: LATRICIA Levofloxacin (Levaquin) 250 mg in 50 mls @ 50 mls/hr IV Q48H [facility] Last Infusion: 08/24/25 10:38 Dose: Infused Documented By: DIYA Lactated Ringer's (Lr) 1,000 mls @ 125 mls/hr IVCONT .Q8H [facility] Last Admin: 08/25/25 04:56 Dose: 125 mls/hr Documented By: ESPERANZA Magnesium Hydroxide (Milk Of Magnesia 30 Ml Oral.Susp) 30 ml PO DAILY PRN PRN Reason: Constipation Melatonin (Melatonin 3 Mg Tablet) 6 mg PO BEDTIME PRN PRN Reason: Insomnia Metoprolol Tartrate (Metoprolol Tartrate 12.5 Mg Halftab) 12.5 mg PO Q6H [facility]; Protocol Last Admin: 08/25/25 04:57 Dose: 12.5 mg Documented By: ESPERANZA Morphine Sulfate (Morphine Sulfate 4 Mg/Ml Cartridge) 2 mg IVPUSH Q4H PRN; Protocol PRN Reason: Pain, Severe (Pain Scale 7-10) Last Admin: 08/24/25 21:09 Dose: 2 mg Documented By: ESPERANZA Ondansetron HCl (Ondansetron Hcl 4 Mg/2 Ml Vial) 4 mg IVPUSH Q8H PRN PRN Reason: Nausea and Vomiting Sodium Chloride (0.9 % Sodium Chloride Flush 3 Ml Syringe) 3 ml IVFLUSH QSHIFT [facility] Last Admin: 08/25/25 07:45 Dose: Not Given Documented By: LATRICIA Non-Admin Reason: IV Running Vancomycin HCl (Vancomycin Hcl 125 Mg Capsule) 125 mg PO Q6H [facility] Last Admin: 08/25/25 07:39 Dose: 125 mg Documented By: LATRICIA Labs 08/23/25 03:54 08/25/25 06:29 Labs: Laboratory Results - last 24 hr 08/23/25 08/23/25 08/23/25 12:29 14:56 17:12 Anion Gap Estim Creat Clear Calc Estimated GFR Random Glucose Calcium Urine Eosinophils % 0.0 Stl C. cayetanensis PCR Not Detected Stool Rotavirus A PCR Not Detected Stl Adenov F 40/41 PCR Not Detected Stool Astrovirus (PCR) Not Detected Stool Campylobacter PCR Not Detected Stool Cryptosporidium PCR Not Detected Stl Sh Tox Pr E STEC PCR Not Detected Stool E coli O157 PCR Not applicable Stl Enterotoxigenic E PCR Not Detected Stool EPEC (PCR) Not Detected Stool EAEC (PCR) Not Detected Stl E. histolytica PCR Not Detected Stool Giardia Lamblia PCR Not Detected Stl P. shigelloides PCR Not Detected Stool Salmonella PCR Not Detected Stool Sapovirus (PCR) Not Detected Stl Shigella/EIEC PCR Not Detected St Y.enterocolitica PCR Not Detected Stool Vibrio (PCR) Not Detected Stl Vibrio cholerae PCR Not Detected Stl Norovirus GI/GII PCR Not Detected Complement C3 154 Complement C4 35 08/25/25 06:29 Anion Gap 22 H Estim Creat Clear Calc 6.9 Estimated GFR 7 Random Glucose 83 Calcium 7.8 L Urine Eosinophils % Stl C. cayetanensis PCR Stool Rotavirus A PCR Stl Adenov F 40/41 PCR Stool Astrovirus (PCR) Stool Campylobacter PCR Stool Cryptosporidium PCR Stl Sh Tox Pr E STEC PCR Stool E coli O157 PCR Stl Enterotoxigenic E PCR Stool EPEC (PCR) Stool EAEC (PCR) Stl E. histolytica PCR Stool Giardia Lamblia PCR Stl P. shigelloides PCR Stool Salmonella PCR Stool Sapovirus (PCR) Stl Shigella/EIEC PCR St Y.enterocolitica PCR Stool Vibrio (PCR) Stl Vibrio cholerae PCR Stl Norovirus GI/GII PCR Complement C3 Complement C4 Microbiology Microbiology Results: Microbiology 08/22/25 13:45 Blood Culture - Preliminary Blood - Venous No growth after 48 hours. 08/22/25 13:44 Blood Culture - Preliminary Blood - Venous No growth after 48 hours. 08/23/25 Unknown Urine Culture - Preliminary Urine clean catch - Clean Catch Midstream Culture too young to evaluate. Assessment and Plan (1) BREANNE (acute kidney injury): Status: Acute Plan Pt is a 70-year-old female with a PMH significant for?HTN, Crohn's disease, colorectal cancer with pulmonary metastasis status post colectomy 2018, chemotherapy and radiation, recurrence in 05/2024 status post chemotherapy who presents to the ED with?N/V/D and generalized weakness x4 days. Pt is admitted to the hospital to BREANNE in the setting of intractable N/V/D and abd pain secondary to enteritis vs. partial SBO. Acute C diff colitis with sepsis Pt with N/V/D and abd pain x4 days prior to presentation CTA of abdomen/pelvis showing question of enteritis vs SBO Has been having consistent diarrhea, high-output ostomy; SBO less likely Similar imaging results found on routine f/u CT/MRI 3 weeks ago Meets SIRS criteria with tachycardia and tachypnea; no fever, leukocytosis, or lactic acidosis Tested positive for C diff gene, negative for toxin Initially treated with empiric Zosyn x2 days, will DC Empirically treat with vancomycin 125 mg p.o. q.6 times 10 days, day 3 General surgery consult, report pt does not appear clinically obstructed but rather suggestive of gastroenteritis Pt prefers to be transferred to [facility] if needs surgical intervention Advanced diet to full solid Infectious disease consulted, continue with oral vanc BREANNE with high anion gap metabolic acidosis Cr further increase to 5.91 today (baseline 0.90), BUN 110 Maribell ATN from severe hypovolemia from above Nephrology consulted, received sodium bicarbonate with dextrose, now on LR @125 mls/h Follow creatinine Question of UTI Pt received Levofloxacin 250mg x1; would be q48h given SCr Hold on additional abx pending urine cultures Hyponatremia Initial sodium 128, now 132 In the setting of above Pt placed on IVF Monitor Sodium Tachycardia Pt with frequent PACs and persistent tachycardia as high as 130s Tele also with some short bursts of rapid AFib Asymptomatic, though pt reports feels anxious about her condition Likely multifactorial: Secondary to anxiety and hypovolemia from CDiff colitis Cardiology consulted, will trial small dose of metoprolol 12.5mg bid for now No indication for oral anticoagulation at this point Echocardiogram with normal LVEF 60-65% with grade 1 diastolic dysfunction Monitor on telemetry, treat as above HTN Hold amlodipine as BP soft and now on metoprolol Full Code DVT Prophylaxis: Lovenox Pt requires continued hospitalization due to worsening BREANNE requiring continued IVF, specialist consultation with Nephrology, and close monitoring of labs. Pt will also require continued monitoring for resolution of diarrhea due to likely C diff colitis. Quality Stroke Does the patient have a stroke diagnosis?: No VTE Prior VTE?: No VTE Risk Level:: Medical - moderate - high VTE Device Contraindication: Treatment Not Indicated VTE Drug Contraindication: N/A - Med Ordered
--- NOTE | 2025-08-25 09:26 | P.PNNP_ITS ---
Subjective Subjective Date of Service: 08/25/25 Interval history: Creatinine continues to increase to 5.91 Euvolemic, no signs or symptoms of uremia. Echo showed IVC of 1.7 cm fluctuating with breathing States her urine output has improved Physical Exam 2 Vital Signs: Vital Signs: Last Vital Signs Temp 97.8 F 08/25/25 08:00 Pulse 75 08/25/25 08:00 Resp 18 08/25/25 08:00 BP 92/51 L 08/25/25 08:00 Pulse Ox 96 08/25/25 08:00 O2 Del Method Room Air 08/25/25 08:00 BMI result Body Mass Index 19.4 General: Elderly lady in mild acute distress, she is chronically ill appearing and tired appearing Nutritional Appearance: well nourished and overweight Eyes: appearance normal, both eyes and all related structures; Alignment and Position: alignment normal and position normal Neck: No lymphadenopathy, no thyromegaly Resp: bilateral air entry equal, no added sounds present Cardio: Regular rate, regular rhythm; Heart sounds: S1 normal heart sound present and S2 normal heart sound present GI: soft, nontender, no guarding, no hepatosplenomegaly : bladder normal to inspection, bladder normal to palpation, no renal angle tenderness Skin: no rashes or lesions noted and elasticity normal Neuro: oriented to person, oriented to place, oriented to time and moves all extremities Objective Data Labs 08/23/25 03:54 08/25/25 06:29 Labs: Laboratory Results - last 24 hr 08/23/25 08/23/25 08/23/25 12:29 14:56 17:12 Sodium Potassium Chloride Carbon Dioxide Anion Gap BUN Creatinine Estim Creat Clear Calc Estimated GFR Random Glucose Calcium Urine Eosinophils % 0.0 Stl C. cayetanensis PCR Not Detected Stool Rotavirus A PCR Not Detected Stl Adenov F 40/41 PCR Not Detected Stool Astrovirus (PCR) Not Detected Stool Campylobacter PCR Not Detected Stool Cryptosporidium PCR Not Detected Stl Sh Tox Pr E STEC PCR Not Detected Stool E coli O157 PCR Not applicable Stl Enterotoxigenic E PCR Not Detected Stool EPEC (PCR) Not Detected Stool EAEC (PCR) Not Detected Stl E. histolytica PCR Not Detected Stool Giardia Lamblia PCR Not Detected Stl P. shigelloides PCR Not Detected Stool Salmonella PCR Not Detected Stool Sapovirus (PCR) Not Detected Stl Shigella/EIEC PCR Not Detected St Y.enterocolitica PCR Not Detected Stool Vibrio (PCR) Not Detected Stl Vibrio cholerae PCR Not Detected Stl Norovirus GI/GII PCR Not Detected Complement C3 154 Complement C4 35 08/25/25 06:29 Sodium 132 L Potassium 3.8 D Chloride 90 L Carbon Dioxide 24 Anion Gap 22 H BUN 110 H Creatinine 5.91 H* Estim Creat Clear Calc 6.9 Estimated GFR 7 Random Glucose 83 Calcium 7.8 L Urine Eosinophils % Stl C. cayetanensis PCR Stool Rotavirus A PCR Stl Adenov F 40/41 PCR Stool Astrovirus (PCR) Stool Campylobacter PCR Stool Cryptosporidium PCR Stl Sh Tox Pr E STEC PCR Stool E coli O157 PCR Stl Enterotoxigenic E PCR Stool EPEC (PCR) Stool EAEC (PCR) Stl E. histolytica PCR Stool Giardia Lamblia PCR Stl P. shigelloides PCR Stool Salmonella PCR Stool Sapovirus (PCR) Stl Shigella/EIEC PCR St Y.enterocolitica PCR Stool Vibrio (PCR) Stl Vibrio cholerae PCR Stl Norovirus GI/GII PCR Complement C3 Complement C4 Microbiology Microbiology Results: Microbiology 08/22/25 13:45 Blood - Venous Blood Culture - Preliminary No growth after 48 hours. 08/22/25 13:44 Blood - Venous Blood Culture - Preliminary No growth after 48 hours. 08/23/25 Unknown Urine clean catch - Clean Catch Midstream Urine Culture - Preliminary Culture too young to evaluate. Procedures Date of Service Date of Service: 08/25/25 Assessment & Plan Assessment and plan (1) Hypertension: Status: Acute (2) BREANNE (acute kidney injury): Status: Acute (3) High anion gap metabolic acidosis: Status: Acute Plan Acute kidney injury: Patient possibly has an acute tubular necrosis secondary to severe volume depletion from diarrhea and poor oral intake as creatinine tends to go up despite volume replacement Baseline creatinine 0.8, increased to 4.2 upon admission, increased to 5.9 this morning Still making urine, hypovolemic, no acidosis, electrolyte stable. No symptoms of uremia, no emergent indication for renal replacement therapy Continue IV fluids LR to 125 cc hour; echo yesterday showing collapsing IVCs, normal contractility. Will continue to closely monitor renal function Urinalysis showing 3+ protein, 3+ blood, greater than 20 RBCs, greater than 50 WBCs. Need to quantify proteinuria once BREANNE settles down. negative urine eosinophils, hepatitis panel, HIV, complement levels. Pending LINH Avoid nephrotoxic agents, contrast, MAUREEN/ARB. High anion gap metabolic acidosis: improved, currently bicarb 24. AG 22 suggesting combined of high anion gap metabolic acidosis with concurrent alkalosis secondary to volume depletion Hypertension: Blood pressure is soft, on lower side Amlodipine withheld, on Lopressor 12.5 q.6h Time Spent With Patient Time: Total time managing care of this patient today ____ minutes. Progress Note: Quality Stroke Does the patient have a stroke diagnosis?: No
[2025-08-25 11:46] VITALS: BP 100/59; PULSE 66; RESP 18; TEMP 37; O2SAT 93
[2025-08-25 15:33] VITALS: BP 101/59; PULSE 78; RESP 18; TEMP 36.7; O2SAT 96
[2025-08-25 19:57] VITALS: BP 110/57; PULSE 92; RESP 20; TEMP 36.4; O2SAT 90
[2025-08-25] MEDS: 0.9 % Sodium Chloride Flush 3 ML SYRINGE IVFLUSH (21:31)
[2025-08-26] VITALS (8 sets, daily range): BP systolic 106–124; BP diastolic 53–61; PULSE 79–87; RESP 16–18; TEMP 36.2–37.1; O2SAT 89–95
[2025-08-26] MEDS: Lactated Ringers 1,000 ML 125 ML IVCONT ×3 (00:51→19:37)
[2025-08-26 07:38] LABS: Anion Gap 17 (12-20); Blood Urea Nitrogen 93 mg/dL (9-16); Calcium 7.9 mg/dL (8.4-10.2); Carbon Dioxide 26 mmol/L (22-29); Chloride 99 mmol/L (96-108); Creatinine Clr Calc Pharmacy 9.2; Estimated Glomerular Filt Rate 10; Potassium 3.3 mmol/L (3.3-5.1); Sodium 139 mmol/L (135-145)
[2025-08-26] MEDS: Metoprolol Tartrate 12.5 MG HALFTAB PO ×2 (08:53→21:10)
--- NOTE | 2025-08-26 09:27 | P.PNCC_ITS ---
Subjective Subjective Date of Service: 08/26/25 Interval History: Feels better, no new complaints Creatinine trending down to 4.45 this morning Good urine output Critical Care Time (minutes): 35 Physical Exam 2 Vital Signs: Vital Signs: Last Vital Signs Temp 98.2 F 08/26/25 08:00 Pulse 82 08/26/25 08:00 Resp 18 08/26/25 08:00 BP 108/57 L 08/26/25 03:46 Pulse Ox 90 L 08/26/25 08:00 O2 Del Method Room Air 08/26/25 08:00 BMI result Body Mass Index 19.4 General: Elderly lady in mild acute distress, ill appearing and tired appearing Nutritional Appearance: Malnourished and underweight Eyes: appearance normal, both eyes and all related structures; Alignment and Position: alignment normal and position normal Neck: No lymphadenopathy, no thyromegaly Resp: bilateral air entry equal, occasional added sounds present Cardio: Regular rate, regular rhythm; Heart sounds: S1 normal heart sound present and S2 normal heart sound present GI: soft, nontender, no guarding, no hepatosplenomegaly , colostomy looks healthy : bladder normal to inspection, bladder normal to palpation, no renal angle tenderness Skin: no rashes or lesions noted and elasticity normal Neuro: oriented to person, oriented to place, oriented to time and moves all extremities Objective Data Labs 08/23/25 03:54 08/26/25 06:23 Labs: Laboratory Results - last 24 hr 08/26/25 06:23 Sodium 139 Potassium 3.3 Chloride 99 Carbon Dioxide 26 Anion Gap 17 BUN 93 H Creatinine 4.45 H* Estim Creat Clear Calc 9.2 Estimated GFR 10 Random Glucose 91 Calcium 7.9 L Microbiology Microbiology Results: Microbiology 08/23/25 Unknown Urine clean catch - Clean Catch Midstream Urine Culture - Final 08/22/25 13:45 Blood - Venous Blood Culture - Preliminary No growth after 48 hours. 08/22/25 13:44 Blood - Venous Blood Culture - Preliminary No growth after 48 hours. Progress Note: A&P Assessment and plan (1) Hypertension: Status: Acute (2) BREANNE (acute kidney injury): Status: Acute (3) High anion gap metabolic acidosis: Status: Acute Plan Acute kidney injury: Patient possibly has an acute tubular necrosis secondary to severe volume depletion from diarrhea and poor oral intake as creatinine tends to go up despite volume replacement Baseline creatinine 0.8, increased to 4.2 upon admission, peaked to 5.9, trending down this morning down to 4.45 suggesting tubules in recovery phase Continue IV fluids LR to 125 cc hour; echo yesterday showing IVC 1.7 cm fluctuating with breathing, normal contractility. Urinalysis showing 3+ protein, 3+ blood, greater than 20 RBCs, greater than 50 WBCs. Need to quantify proteinuria once BREANNE settles down. negative urine eosinophils, hepatitis panel, HIV, complement levels. Pending LINH Avoid nephrotoxic agents, contrast, MAUREEN/ARB. Will continue to closely monitor renal function. High anion gap metabolic acidosis: improving, currently bicarb 26 AG down to 17 suggesting combined of high anion gap metabolic acidosis with concurrent alkalosis secondary to volume depletion however the alkalosis is improving with volume replacement Hypertension: Blood pressure is soft, on lower side Amlodipine withheld, on Lopressor 12.5 q.6h Quality Stroke Does the patient have a stroke diagnosis?: No VTE Prior VTE?: No VTE Risk Level:: Medical - moderate - high VTE Device Contraindication: Treatment Not Indicated VTE Drug Contraindication: N/A - Med Ordered
[2025-08-26 09:55] LABS: Chlamydia pneumoniae PCR Not Detected (Not Detect.); Coronavirus 229E PCR Not Detected (Not Detect.); Coronavirus HKU1 PCR Not Detected (Not Detect.); Coronavirus NL63 PCR Not Detected (Not Detect.); Coronavirus OC43 PCR Not Detected (Not Detect.); RSV PCR Not Detected (Not Detect.); Rhino/Enterovirus PCR Not Detected (Not Detect.)
[2025-08-26 10:18] LABS: SARS-CoV-2 PCR Not Detected (Not Detect.)
--- NOTE | 2025-08-26 10:56 | P.PNNP_ITS ---
Subjective Subjective Date of Service: 08/26/25 Interval history: Feels better, no new complaints Creatinine trending down to 4.45 this morning Good urine output Physical Exam 2 Vital Signs: Vital Signs: Last Vital Signs Temp 98.2 F 08/26/25 08:00 Pulse 82 08/26/25 08:00 Resp 18 08/26/25 08:00 BP 108/57 L 08/26/25 03:46 Pulse Ox 90 L 08/26/25 08:00 O2 Del Method Room Air 08/26/25 08:00 BMI result Body Mass Index 19.4 General: not in any acute distress, ill appearing Nutritional Appearance: well nourished and overweight Eyes: appearance normal, both eyes and all related structures; Alignment and Position: alignment normal and position normal Neck: No lymphadenopathy, no thyromegaly Resp: bilateral air entry equal, no added sounds present Cardio: Regular rate, regular rhythm; Heart sounds: S1 normal heart sound present and S2 normal heart sound present GI: soft, nontender, no guarding, no hepatosplenomegaly, colosctomy stump looks okay : bladder normal to inspection, bladder normal to palpation, no renal angle tenderness Skin: no rashes or lesions noted and elasticity normal Neuro: alert, oriented x 3, moves all extremities Objective Data Labs 08/23/25 03:54 08/26/25 06:23 Labs: Laboratory Results - last 24 hr 08/25/25 08/26/25 18:44 06:23 Sodium 139 Potassium 3.3 Chloride 99 Carbon Dioxide 26 Anion Gap 17 BUN 93 H Creatinine 4.45 H* Estim Creat Clear Calc 9.2 Estimated GFR 10 Random Glucose 91 Calcium 7.9 L Respiratory Panel Galo See Note Adenovirus (Rapid PCR) Not Detected B.pert (TEM-PCR) Not Detected B.parapertussis DNA PCR Not Detected C. pneumoniae DNA (PCR) Not Detected Coronavirus OC43 (PCR) Not Detected Coronavirus HKU1 (PCR) Not Detected Coronavirus 229E (PCR) Not Detected Coronavirus NL63 (PCR) Not Detected Human Metapneumovir PCR Not Detected Influenza A (RT-PCR) Not Detected Influenza A (H1) PCR TNP Influ A (H1/09) PCR TNP Influenza A (H3) PCR TNP Influenza B (RT-PCR) Not Detected M. pneumoniae (PCR) Not Detected Parainfluenza 1 (PCR) Not Detected Parainfluenza 2 (PCR) Not Detected Parainfluenza 3 (PCR) Not Detected Parainfluenza 4 (PCR) Not Detected RSV (PCR) Not Detected Entero/Rhino (PCR) Not Detected SARS-CoV-2 RNA (RT-PCR) Not Detected Microbiology Microbiology Results: Microbiology 08/23/25 Unknown Urine clean catch - Clean Catch Midstream Urine Culture - Final 08/22/25 13:45 Blood - Venous Blood Culture - Preliminary No growth after 48 hours. 08/22/25 13:44 Blood - Venous Blood Culture - Preliminary No growth after 48 hours. Procedures Date of Service Date of Service: 08/26/25 Assessment & Plan Assessment and plan (1) Hypertension: Status: Acute (2) BREANNE (acute kidney injury): Status: Acute (3) High anion gap metabolic acidosis: Status: Acute Plan Acute kidney injury: Patient possibly has an acute tubular necrosis secondary to severe volume depletion from diarrhea and poor oral intake as creatinine tends to go up despite volume replacement Baseline creatinine 0.8, increased to 4.2 upon admission, peaked to 5.9, trending down this morning down to 4.45 suggesting tubules in recovery phase Continue IV fluids LR to 125 cc hour; echo yesterday showing IVC 1.7 cm fluctuating with breathing, normal contractility. Urinalysis showing 3+ protein, 3+ blood, greater than 20 RBCs, greater than 50 WBCs. Need to quantify proteinuria once BREANNE settles down. negative urine eosinophils, hepatitis panel, HIV, complement levels. Pending LINH Avoid nephrotoxic agents, contrast, MAUREEN/ARB. Will continue to closely monitor renal function. High anion gap metabolic acidosis: improving, currently bicarb 26 AG down to 17 suggesting combined of high anion gap metabolic acidosis with concurrent alkalosis secondary to volume depletion however the alkalosis is improving with volume replacement Hypertension: Blood pressure is soft, on lower side Amlodipine withheld, on Lopressor 12.5 q.6h Time Spent With Patient Time: Total time managing care of this patient today ____ minutes. Progress Note: Quality Stroke Does the patient have a stroke diagnosis?: No
--- NOTE | 2025-08-26 15:53 | MHC.CM.PN ---
EMR REVIEWED AND PER MD ROUNDS, PATIENT IS NOT MEDICALLY CLEARED FOR DISCHARGE DUE TO MANAGEMENT OF BREANNE.
--- NOTE | 2025-08-26 18:21 | P.PNIM_ITS ---
Subjective Subjective Date of Service: 08/26/25 Interval History: Creatinine improving Reports stool is becoming more solid Denies abdominal pain Has been tolerating diet Review of Systems Review of Systems: Yes all other systems are reviewed and are negative Physical Exam 2 Exam: Exam: General: AOx3, no acute distress Resp: CTA bilaterally CVS: S1, S2 GI: +BS, no distention. Overall benign and NT. Colostomy with small amount of brown-colored semi-solid stool. Skin: Warm, dry Neuro: Cranial nerves II-XII grossly intact bilaterally. Motor grossly intact bilaterally Extremities: No edema Psych: Appropriate affect Vital Signs: Vital Signs: Last Vital Signs Temp 98.7 F 08/26/25 15:22 Pulse 79 08/26/25 15:22 Resp 18 08/26/25 15:22 BP 118/59 L 08/26/25 15:22 Pulse Ox 95 08/26/25 15:22 O2 Del Method Room Air 08/26/25 15:22 BMI result Body Mass Index 19.4 Objective Data Active Medications Acetaminophen (Acetaminophen 325 Mg Tablet) 650 mg PO Q6H PRN PRN Reason: Pain, Mild 1-3,fever,headache Last Admin: 08/23/25 20:31 Dose: 650 mg Documented By: GUSTAVO Amlodipine Besylate (Amlodipine Besylate 5 Mg Tablet) 5 mg PO DAILY [facility]; Protocol On Hold: 08/24/25 09:52 Last Admin: 08/24/25 09:30 Dose: 5 mg Documented By: DIYA Calcium Carbonate (Calcium Carbonate 750 Mg Tab.Chew) 750 mg PO Q4H PRN PRN Reason: Heartburn Guaifenesin/Dextromethorphan (Guaifenesin Dm 200/20/10 Ml 10 Ml Syrup) 10 ml PO Q4H PRN PRN Reason: Cough Heparin Sodium (Porcine) (Heparin Sodium,Porcine 5,000 Unit/Ml Vial) 5,000 unit SUBCUT Q12H [facility] Last Admin: 08/26/25 08:53 Dose: 5,000 unit Documented By: LATRCIIA Lactated Ringer's (Lr) 1,000 mls @ 125 mls/hr IVCONT .Q8H [facility] Last Admin: 08/26/25 10:34 Dose: 125 mls/hr Documented By: LATRICIA Magnesium Hydroxide (Milk Of Magnesia 30 Ml Oral.Susp) 30 ml PO DAILY PRN PRN Reason: Constipation Melatonin (Melatonin 3 Mg Tablet) 6 mg PO BEDTIME PRN PRN Reason: Insomnia Metoprolol Tartrate (Metoprolol Tartrate 12.5 Mg Halftab) 12.5 mg PO BID [facility]; Protocol Last Admin: 08/26/25 08:53 Dose: 12.5 mg Documented By: LATRICIA Morphine Sulfate (Morphine Sulfate 4 Mg/Ml Cartridge) 2 mg IVPUSH Q4H PRN; Protocol PRN Reason: Pain, Severe (Pain Scale 7-10) Last Admin: 08/24/25 21:09 Dose: 2 mg Documented By: ESPERANZA Ondansetron HCl (Ondansetron Hcl 4 Mg/2 Ml Vial) 4 mg IVPUSH Q8H PRN PRN Reason: Nausea and Vomiting Sodium Chloride (0.9 % Sodium Chloride Flush 3 Ml Syringe) 3 ml IVFLUSH QSHIFT [facility] Last Admin: 08/26/25 16:39 Dose: Not Given Documented By: LATRICIA Non-Admin Reason: IV Running Vancomycin HCl (Vancomycin Hcl 125 Mg Capsule) 125 mg PO Q6H [facility] Last Admin: 08/26/25 13:03 Dose: 125 mg Documented By: LATRICIA Labs 08/23/25 03:54 08/26/25 06:23 Labs: Laboratory Results - last 24 hr 08/25/25 08/26/25 18:44 06:23 Anion Gap 17 Estim Creat Clear Calc 9.2 Estimated GFR 10 Random Glucose 91 Calcium 7.9 L Respiratory Panel Galo See Note Adenovirus (Rapid PCR) Not Detected B.pert (TEM-PCR) Not Detected B.parapertussis DNA PCR Not Detected C. pneumoniae DNA (PCR) Not Detected Coronavirus OC43 (PCR) Not Detected Coronavirus HKU1 (PCR) Not Detected Coronavirus 229E (PCR) Not Detected Coronavirus NL63 (PCR) Not Detected Human Metapneumovir PCR Not Detected Influenza A (RT-PCR) Not Detected Influenza A (H1) PCR TNP Influ A (H1/09) PCR TNP Influenza A (H3) PCR TNP Influenza B (RT-PCR) Not Detected M. pneumoniae (PCR) Not Detected Parainfluenza 1 (PCR) Not Detected Parainfluenza 2 (PCR) Not Detected Parainfluenza 3 (PCR) Not Detected Parainfluenza 4 (PCR) Not Detected RSV (PCR) Not Detected Entero/Rhino (PCR) Not Detected SARS-CoV-2 RNA (RT-PCR) Not Detected Assessment and Plan (1) BREANNE (acute kidney injury): Status: Acute (2) C. difficile colitis: Status: Acute Plan Pt is a 70-year-old female with a PMH significant for?HTN, Crohn's disease, colorectal cancer with pulmonary metastasis status post colectomy 2018, chemotherapy and radiation, recurrence in 05/2024 status post chemotherapy who presents to the ED with?N/V/D and generalized weakness x4 days. Pt is admitted to the hospital to BREANNE in the setting of intractable N/V/D and abd pain secondary to enteritis vs. partial SBO. BREANNE with high anion gap metabolic acidosis Cr peaked at 5.91 today (baseline 0.90); today better at 4.45 Likely ATN from severe hypovolemia from above Nephrology consulted, continue LR @125 mls/h Follow creatinine Acute C diff colitis with sepsis Pt with N/V/D and abd pain x4 days prior to presentation CTA of abdomen/pelvis showing question of enteritis vs SBO; SBO ruled out Similar imaging results found on routine f/u CT/MRI 3 weeks ago Meets SIRS criteria with tachycardia and tachypnea; no fever, leukocytosis, or lactic acidosis Tested positive for C diff gene, negative for toxin Initially treated with empiric Zosyn x2 days, will DC Treated with vancomycin 125 mg p.o. q.6 times 10 days, day 4 General surgery consult, report pt does not appear clinically obstructed but rather suggestive of gastroenteritis Pt prefers to be transferred to [facility] if needs surgical intervention Has been tolerating full solid diet Infectious disease consulted, continue with oral vanc Question of UTI Pt received Levofloxacin 250mg x1; would be q48h given SCr UA cultures negative Hyponatremia Initial sodium 128, now 139 In the setting of above Pt placed on IVF Monitor Sodium Tachycardia Pt with frequent PACs and persistent tachycardia as high as 130s Tele also with some short bursts of rapid AFib Asymptomatic, though pt reports feels anxious about her condition Likely multifactorial: Secondary to anxiety and hypovolemia from CDiff colitis Cardiology consulted, will trial small dose of metoprolol 12.5mg bid for now No indication for oral anticoagulation at this point Echocardiogram with normal LVEF 60-65% with grade 1 diastolic dysfunction HR much better controlled with metoprolol Monitor on telemetry, treat as above HTN Hold amlodipine as BP soft and now on metoprolol Can likely d/c amlodipine at discharge Full Code DVT Prophylaxis: Lovenox Pt requires continued hospitalization due to significant BREANNE requiring continued IVF, specialist consultation with Nephrology, and close monitoring of labs. Quality Stroke Does the patient have a stroke diagnosis?: No VTE Prior VTE?: No VTE Risk Level:: Medical - moderate - high VTE Device Contraindication: Treatment Not Indicated VTE Drug Contraindication: N/A - Med Ordered
[2025-08-26] MEDS: guaiFENesin DM 200/20/10 ML 10 ML SYRUP PO (18:36)
[2025-08-26] MEDS: 0.9 % Sodium Chloride Flush 3 ML SYRINGE IVFLUSH (21:10)
[2025-08-27] MEDS: Lactated Ringers 1,000 ML 125 ML IVCONT ×2 (02:25→10:19)
[2025-08-27 03:16] VITALS: BP 117/62; PULSE 80; RESP 18; TEMP 36; O2SAT 92
[2025-08-27] MEDS: Metoprolol Tartrate 12.5 MG HALFTAB PO ×2 (07:45→21:26)
[2025-08-27] MEDS: 0.9 % Sodium Chloride Flush 3 ML SYRINGE IVFLUSH ×3 (07:46→21:26)
[2025-08-27 08:00] VITALS: BP 128/63; PULSE 78; RESP 18; TEMP 36.6; O2SAT 92
[2025-08-27 08:40] LABS: Hematocrit 32.0 % (37.0-47.0); Hemoglobin 10.4 g/dl (12.0-16.0); Mean Corpuscular HGB Conc 32.5 g/dl (31.0-35.0); Mean Corpuscular Hemoglobin 26.1 pg (27.0-33.0); Mean Corpuscular Volume 80.4 fL (80.0-98.0); NRBC Abs Auto 0.000 X10*3/uL (0.0-0.012); NRBC Pct Auto 0.0 /100WBC (0.0-0.2); Platelet Count 225 X10*3/uL (160-400); Red Blood Count 3.98 X10*6/uL (4.20-5.50); White Blood Count 9.7 X10*3/uL (4.8-10.8)
[2025-08-27 09:22] LABS: Anion Gap 15 (12-20); Blood Urea Nitrogen 78 mg/dL (9-16); Calcium 7.9 mg/dL (8.4-10.2); Carbon Dioxide 28 mmol/L (22-29); Chloride 101 mmol/L (96-108); Creatinine Clr Calc Pharmacy 10.0; Estimated Glomerular Filt Rate 11; Potassium 3.5 mmol/L (3.3-5.1); Sodium 140 mmol/L (135-145)
[2025-08-27 12:00] VITALS: BP 129/64; PULSE 77; RESP 18; TEMP 36.9; O2SAT 94
--- NOTE | 2025-08-27 13:20 | P.PNNP_ITS ---
Subjective Subjective Date of Service: 08/27/25 Interval history: Doing better, creatinine down to 4.15 this morning Diarrhea improving, stools are more formed Physical Exam 2 Vital Signs: Vital Signs: Last Vital Signs Temp 98.4 F 08/27/25 12:00 Pulse 77 08/27/25 12:00 Resp 18 08/27/25 12:00 BP 129/64 08/27/25 12:00 Pulse Ox 94 08/27/25 12:00 O2 Del Method Room Air 08/27/25 12:00 BMI result Body Mass Index 19.4 General: not in any acute distress, ill appearing Nutritional Appearance: Cachectic, underweight Eyes: appearance normal, both eyes and all related structures; Alignment and Position: alignment normal and position normal Neck: No lymphadenopathy, no thyromegaly Resp: bilateral air entry equal, no added sounds present Cardio: Regular rate, regular rhythm; Heart sounds: S1 normal heart sound present and S2 normal heart sound present GI: soft, nontender, no guarding, no hepatosplenomegaly : bladder normal to inspection, bladder normal to palpation, no renal angle tenderness Skin: no rashes or lesions noted and elasticity normal Neuro: alert, oriented x 3, moves all extremities Objective Data Labs 08/27/25 08:31 08/27/25 08:31 Labs: Laboratory Results - last 24 hr 08/27/25 08:31 WBC 9.7 RBC 3.98 L Hgb 10.4 L Hct 32.0 L MCV 80.4 MCH 26.1 L MCHC 32.5 RDW 16.3 H Plt Count 225 MPV 9.5 Absolute Nucleated RBC 0.000 Nucleated RBC % (auto) 0.0 Sodium 140 Potassium 3.5 Chloride 101 Carbon Dioxide 28 Anion Gap 15 BUN 78 H Creatinine 4.10 H* Estim Creat Clear Calc 10.0 Estimated GFR 11 Random Glucose 109 Calcium 7.9 L Microbiology Microbiology Results: Microbiology 08/23/25 Unknown Urine clean catch - Clean Catch Midstream Urine Culture - Final 08/22/25 13:45 Blood - Venous Blood Culture - Preliminary No growth after 48 hours. 08/22/25 13:44 Blood - Venous Blood Culture - Preliminary No growth after 48 hours. Procedures Date of Service Date of Service: 08/27/25 Assessment & Plan Assessment and plan (1) Hypertension: Status: Acute (2) BREANNE (acute kidney injury): Status: Acute (3) Anemia of chronic disease: Status: Acute Plan Acute kidney injury: Patient possibly has an acute tubular necrosis secondary to severe volume depletion from diarrhea and poor oral intake as creatinine tends to go up despite volume replacement Baseline creatinine 0.8, increased to 4.2 upon admission, peaked to 5.9, trending down this morning down to 4.10 suggesting tubules in recovery phase Can cut down IV fluids LR to 75 cc hour. Urinalysis showing 3+ protein, 3+ blood, greater than 20 RBCs, greater than 50 WBCs. Need to quantify proteinuria once BREANNE settles down. negative urine eosinophils, hepatitis panel, HIV, complement levels. Pending LINH Avoid nephrotoxic agents, contrast, MAUREEN/ARB. Will continue to closely monitor renal function. High anion gap metabolic acidosis: Resolved, anion gap 15 Hypertension: Blood pressure is soft, on lower side Amlodipine withheld, on Lopressor 12.5 q.6h Time Spent With Patient Time: Total time managing care of this patient today ____ minutes. Progress Note: Quality Stroke Does the patient have a stroke diagnosis?: No
[2025-08-27 15:47] VITALS: BP 121/64; PULSE 78; RESP 25; TEMP 37.4; O2SAT 94
--- NOTE | 2025-08-27 17:17 | P.PNIM_ITS ---
Subjective Subjective Date of Service: 08/27/25 Interval History: No acute events overnight Pt over doing well Has been tolerating solid diet Abdominal pain controlled Creatinine improving to 4.10 Review of Systems Review of Systems: Yes all other systems are reviewed and are negative Physical Exam 2 Exam: Exam: General: AOx3, no acute distress Resp: CTA bilaterally CVS: S1, S2 GI: +BS, no distention. Overall benign and NT. Colostomy with small amount of brown-colored semi-solid stool. Skin: Warm, dry Neuro: Cranial nerves II-XII grossly intact bilaterally. Motor grossly intact bilaterally Extremities: No edema Psych: Appropriate affect Vital Signs: Vital Signs: Last Vital Signs Temp 99.3 F 08/27/25 15:47 Pulse 78 08/27/25 15:47 Resp 25 H 08/27/25 15:47 BP 121/64 08/27/25 15:47 Pulse Ox 94 08/27/25 15:47 O2 Del Method Room Air 08/27/25 15:47 BMI result Body Mass Index 19.4 Objective Data Active Medications Acetaminophen (Acetaminophen 325 Mg Tablet) 650 mg PO Q6H PRN PRN Reason: Pain, Mild 1-3,fever,headache Last Admin: 08/27/25 10:07 Dose: 325 mg Documented By: ROSELYN Comments: Pt only wanted 325mg, as per her home routine. Amlodipine Besylate (Amlodipine Besylate 5 Mg Tablet) 5 mg PO DAILY [facility]; Protocol On Hold: 08/24/25 09:52 Last Admin: 08/24/25 09:30 Dose: 5 mg Documented By: DIYA Calcium Carbonate (Calcium Carbonate 750 Mg Tab.Chew) 750 mg PO Q4H PRN PRN Reason: Heartburn Guaifenesin/Dextromethorphan (Guaifenesin Dm 200/20/10 Ml 10 Ml Syrup) 10 ml PO Q4H PRN PRN Reason: Cough Last Admin: 08/26/25 18:36 Dose: 10 ml Documented By: LATRICIA Heparin Sodium (Porcine) (Heparin Sodium,Porcine 5,000 Unit/Ml Vial) 5,000 unit SUBCUT Q12H [facility] Last Admin: 08/27/25 07:45 Dose: 5,000 unit Documented By: GARETT Lactated Ringer's (Lr) 1,000 mls @ 75 mls/hr IVCONT .[id number] [facility] Last Admin: 08/27/25 10:19 Dose: 125 mls/hr Documented By: ROSELYN Magnesium Hydroxide (Milk Of Magnesia 30 Ml Oral.Susp) 30 ml PO DAILY PRN PRN Reason: Constipation Melatonin (Melatonin 3 Mg Tablet) 6 mg PO BEDTIME PRN PRN Reason: Insomnia Metoprolol Tartrate (Metoprolol Tartrate 12.5 Mg Halftab) 12.5 mg PO BID [facility]; Protocol Last Admin: 08/27/25 07:45 Dose: 12.5 mg Documented By: AGRETT Ondansetron HCl (Ondansetron Hcl 4 Mg/2 Ml Vial) 4 mg IVPUSH Q8H PRN PRN Reason: Nausea and Vomiting Sodium Chloride (0.9 % Sodium Chloride Flush 3 Ml Syringe) 3 ml IVFLUSH QSHIFT [facility] Last Admin: 08/27/25 16:02 Dose: 3 ml Documented By: GARETT Vancomycin HCl (Vancomycin Hcl 125 Mg Capsule) 125 mg PO Q6H [facility] Last Admin: 08/27/25 13:05 Dose: 125 mg Documented By: GARETT Labs 08/27/25 08:31 08/27/25 08:31 Labs: Laboratory Results - last 24 hr 08/27/25 08:31 MCV 80.4 MCH 26.1 L MCHC 32.5 RDW 16.3 H Plt Count 225 MPV 9.5 Absolute Nucleated RBC 0.000 Nucleated RBC % (auto) 0.0 Anion Gap 15 Estim Creat Clear Calc 10.0 Estimated GFR 11 Random Glucose 109 Calcium 7.9 L Microbiology Microbiology Results: Microbiology 08/22/25 13:45 Blood Culture - Final Blood - Venous No growth after 5 days. 08/22/25 13:44 Blood Culture - Final Blood - Venous No growth after 5 days. Assessment and Plan (1) BREANNE (acute kidney injury): Status: Acute (2) C. difficile colitis: Status: Acute Plan Pt is a 70-year-old female with a PMH significant for?HTN, Crohn's disease, colorectal cancer with pulmonary metastasis status post colectomy 2018, chemotherapy and radiation, recurrence in 05/2024 status post chemotherapy who presents to the ED with?N/V/D and generalized weakness x4 days. Pt is admitted to the hospital to BREANNE in the setting of intractable N/V/D and abd pain secondary to enteritis vs. partial SBO. BREANNE with high anion gap metabolic acidosis Cr peaked at 5.91 (baseline 0.90); continues to improve, now at 4.15 Likely ATN from severe hypovolemia from above Nephrology consulted, reduce to LR @75 mls/h Follow creatinine Acute C diff colitis with sepsis Pt with N/V/D and abd pain x4 days prior to presentation CTA of abdomen/pelvis showing question of enteritis vs SBO; SBO ruled out Similar imaging results found on routine f/u CT/MRI 3 weeks ago Meets SIRS criteria with tachycardia and tachypnea; no fever, leukocytosis, or lactic acidosis Tested positive for C diff gene, negative for toxin Initially treated with empiric Zosyn x2 days, will DC Treated with vancomycin 125 mg p.o. q.6 times 10 days, day 5 General surgery consult, report pt does not appear clinically obstructed but rather suggestive of gastroenteritis Pt prefers to be transferred to [facility] if needs surgical intervention Has been tolerating full solid diet, [facility] Infectious disease consulted, continue with oral vanc Question of UTI Pt received Levofloxacin 250mg x1; would be q48h given SCr UA cultures negative Hyponatremia, resolved Initial sodium 128 In the setting of above Pt placed on IVF Monitor Sodium Tachycardia Pt with frequent PACs and persistent tachycardia as high as 130s Tele also with some short bursts of rapid AFib Asymptomatic, though pt reports feels anxious about her condition Likely multifactorial: Secondary to anxiety and hypovolemia from CDiff colitis Cardiology consulted, will trial small dose of metoprolol 12.5mg bid for now No indication for oral anticoagulation at this point Echocardiogram with normal LVEF 60-65% with grade 1 diastolic dysfunction HR much better controlled with metoprolol Monitor on telemetry, treat as above HTN D/C amlodipine pt now on metoprolol Can likely d/c amlodipine at discharge Full Code DVT Prophylaxis: Lovenox Pt requires continued hospitalization due to significant BREANNE requiring continued IVF, specialist consultation with Nephrology, and close monitoring of labs. Quality Stroke Does the patient have a stroke diagnosis?: No VTE Prior VTE?: No VTE Risk Level:: Medical - moderate - high VTE Device Contraindication: Treatment Not Indicated VTE Drug Contraindication: N/A - Med Ordered
[2025-08-27] MEDS: Lactated Ringers 1,000 ML 75 ML IVCONT (17:59)
[2025-08-27 19:49] VITALS: BP 131/65; PULSE 86; RESP 18; TEMP 36.6; O2SAT 91
[2025-08-27 23:24] VITALS: BP 126/70; PULSE 83; RESP 16; TEMP 36.4; O2SAT 91
[2025-08-28 03:15] VITALS: BP 133/66; PULSE 79; RESP 16; TEMP 36.3; O2SAT 91
[2025-08-28] MEDS: 0.9 % Sodium Chloride Flush 3 ML SYRINGE IVFLUSH (06:37)
[2025-08-28] MEDS: Lactated Ringers 1,000 ML 75 ML IVCONT ×2 (06:37→19:45)
[2025-08-28 08:00] VITALS: BP 145/70; PULSE 76; RESP 18; TEMP 36.5; O2SAT 92
[2025-08-28] MEDS: Metoprolol Tartrate 12.5 MG HALFTAB PO ×2 (08:17→22:15)
[2025-08-28 08:38] LABS: Anion Gap 15 (12-20); Blood Urea Nitrogen 74 mg/dL (9-16); Calcium 7.8 mg/dL (8.4-10.2); Carbon Dioxide 26 mmol/L (22-29); Chloride 104 mmol/L (96-108); Creatinine Clr Calc Pharmacy 10.1; Estimated Glomerular Filt Rate 11; Potassium 3.6 mmol/L (3.3-5.1); Sodium 141 mmol/L (135-145)
--- NOTE | 2025-08-28 11:45 | P.PNNP_ITS ---
Subjective Subjective Date of Service: 08/28/25 Interval history: No new events overnight, feeling better Creatinine trending down Physical Exam 2 Vital Signs: Vital Signs: Last Vital Signs Temp 97.7 F 08/28/25 08:00 Pulse 76 08/28/25 08:00 Resp 18 08/28/25 08:00 BP 145/70 H 08/28/25 08:00 Pulse Ox 92 08/28/25 08:00 O2 Del Method Room Air 08/28/25 08:00 BMI result Body Mass Index 19.4 General: not in any acute distress, ill appearing Nutritional Appearance: well nourished and overweight Eyes: appearance normal, both eyes and all related structures; Alignment and Position: alignment normal and position normal Neck: No lymphadenopathy, no thyromegaly Resp: bilateral air entry equal, no added sounds present Cardio: Regular rate, regular rhythm; Heart sounds: S1 normal heart sound present and S2 normal heart sound present GI: soft, nontender, no guarding, no hepatosplenomegaly : bladder normal to inspection, bladder normal to palpation, no renal angle tenderness Skin: no rashes or lesions noted and elasticity normal Neuro: alert, oriented x 3, moves all extremities Objective Data Labs 08/27/25 08:31 08/28/25 07:33 Labs: Laboratory Results - last 24 hr 08/28/25 07:33 Hold Purple Top SEE NOTE Sodium 141 Potassium 3.6 Chloride 104 Carbon Dioxide 26 Anion Gap 15 BUN 74 H Creatinine 4.06 H* Estim Creat Clear Calc 10.1 Estimated GFR 11 Random Glucose 88 Calcium 7.8 L Microbiology Microbiology Results: Microbiology 08/22/25 13:45 Blood - Venous Blood Culture - Final No growth after 5 days. 08/22/25 13:44 Blood - Venous Blood Culture - Final No growth after 5 days. 08/23/25 Unknown Urine clean catch - Clean Catch Midstream Urine Culture - Final Procedures Date of Service Date of Service: 08/28/25 Assessment & Plan Assessment and plan (1) Hypertension: Status: Acute (2) Atrial arrhythmia: Status: Acute (3) BREANNE (acute kidney injury): Status: Acute (4) High anion gap metabolic acidosis: Status: Acute Plan Acute kidney injury: Patient possibly has an acute tubular necrosis secondary to severe volume depletion from diarrhea due to C diff colitis and poor oral intake as creatinine tends to go up despite volume replacement Baseline creatinine 0.8, increased to 4.2 upon admission, peaked to 5.9, currently trending down suggesting tubules in recovery phase. All the creatinine decreased to 4.06 this morning, would have expected a decrease. Continue LR to 75 cc hour (decreased from 100cc yesterday), encourage oral fluid intake Urinalysis showing 3+ protein, 3+ blood, greater than 20 RBCs, greater than 50 WBCs. Need to quantify proteinuria once BREANNE settles down. negative urine eosinophils, hepatitis panel, HIV, complement levels. Pending LINH Avoid nephrotoxic agents, contrast, MAUREEN/ARB. Will continue to closely monitor renal function. We will request for an outpatient follow-up appointment in 2 weeks after discharge High anion gap metabolic acidosis: Resolved, anion gap 15 Hypertension: Blood pressure improving Amlodipine can be restarted, on Lopressor 12.5 q.6h Time Spent With Patient Time: Total time managing care of this patient today ____ minutes. Progress Note: Quality Stroke Does the patient have a stroke diagnosis?: No
[2025-08-28 12:00] VITALS: BP 127/69; PULSE 79; RESP 18; TEMP 36.6; O2SAT 92
--- NOTE | 2025-08-28 14:13 | P.PNIM_ITS ---
Subjective Subjective Date of Service: 08/28/25 Interval History: No acute events overnight Pt continues to feel well and tolerate diet Ostomy output still mostly liquid Continued minimal improvement of creatinine: 4.10-->4.06 Review of Systems Review of Systems: Yes all other systems are reviewed and are negative Physical Exam 2 Exam: Exam: General: AOx3, no acute distress Resp: CTA bilaterally CVS: S1, S2 GI: +BS, no distention. Overall benign and NT. Colostomy with brown-colored stool, mostly liquid with some semi solid component Skin: Warm, dry Neuro: Cranial nerves II-XII grossly intact bilaterally. Motor grossly intact bilaterally Extremities: No edema Psych: Appropriate affect Vital Signs: Vital Signs: Last Vital Signs Temp 98 F 08/28/25 12:00 Pulse 79 08/28/25 12:00 Resp 18 08/28/25 12:00 BP 127/69 08/28/25 12:00 Pulse Ox 92 08/28/25 12:00 O2 Del Method Room Air 08/28/25 12:00 BMI result Body Mass Index 19.4 Objective Data Active Medications Acetaminophen (Acetaminophen 325 Mg Tablet) 650 mg PO Q6H PRN PRN Reason: Pain, Mild 1-3,fever,headache Last Admin: 08/27/25 10:07 Dose: 325 mg Documented By: ROSELYN Comments: Pt only wanted 325mg, as per her home routine. Amlodipine Besylate (Amlodipine Besylate 5 Mg Tablet) 5 mg PO DAILY [facility]; Protocol On Hold: 08/24/25 09:52 Last Admin: 08/24/25 09:30 Dose: 5 mg Documented By: DIYA Calcium Carbonate (Calcium Carbonate 750 Mg Tab.Chew) 750 mg PO Q4H PRN PRN Reason: Heartburn Guaifenesin/Dextromethorphan (Guaifenesin Dm 200/20/10 Ml 10 Ml Syrup) 10 ml PO Q4H PRN PRN Reason: Cough Last Admin: 08/26/25 18:36 Dose: 10 ml Documented By: LATRICIA Heparin Sodium (Porcine) (Heparin Sodium,Porcine 5,000 Unit/Ml Vial) 5,000 unit SUBCUT Q12H [facility] Last Admin: 08/28/25 08:17 Dose: 5,000 unit Documented By: TIFFANIE Lactated Ringer's (Lr) 1,000 mls @ 75 mls/hr IVCONT .[id number] [facility] Last Admin: 08/28/25 06:37 Dose: 75 mls/hr Documented By: DELIO Magnesium Hydroxide (Milk Of Magnesia 30 Ml Oral.Susp) 30 ml PO DAILY PRN PRN Reason: Constipation Melatonin (Melatonin 3 Mg Tablet) 6 mg PO BEDTIME PRN PRN Reason: Insomnia Metoprolol Tartrate (Metoprolol Tartrate 12.5 Mg Halftab) 12.5 mg PO BID [facility]; Protocol Last Admin: 08/28/25 08:17 Dose: 12.5 mg Documented By: TIFFANIE Non-Formulary Medication (Trospium) 20 mg PO BID [facility] Ondansetron HCl (Ondansetron Hcl 4 Mg/2 Ml Vial) 4 mg IVPUSH Q8H PRN PRN Reason: Nausea and Vomiting Sodium Chloride (0.9 % Sodium Chloride Flush 3 Ml Syringe) 3 ml IVFLUSH QSHIFT [facility] Last Admin: 08/28/25 06:37 Dose: 3 ml Documented By: DELIO Vancomycin HCl (Vancomycin Hcl 125 Mg Capsule) 125 mg PO Q6H [facility] Last Admin: 08/28/25 12:29 Dose: 125 mg Documented By: TIFFANIE Labs 08/27/25 08:31 08/28/25 07:33 Labs: Laboratory Results - last 24 hr 08/28/25 07:33 Hold Purple Top SEE NOTE Anion Gap 15 Estim Creat Clear Calc 10.1 Estimated GFR 11 Random Glucose 88 Calcium 7.8 L Microbiology Microbiology Results: Microbiology 08/22/25 13:45 Blood Culture - Final Blood - Venous No growth after 5 days. 08/22/25 13:44 Blood Culture - Final Blood - Venous No growth after 5 days. Assessment and Plan (1) C. difficile colitis: Status: Acute (2) BREANNE (acute kidney injury): Status: Acute Plan Pt is a 70-year-old female with a PMH significant for?HTN, Crohn's disease, colorectal cancer with pulmonary metastasis status post colectomy 2018, chemotherapy and radiation, recurrence in 05/2024 status post chemotherapy who presents to the ED with?N/V/D and generalized weakness x4 days. Pt is admitted to the hospital to [facility] in the setting of intractable N/V/D and abd pain secondary to enteritis vs. partial SBO. BREANNE with high anion gap metabolic acidosis Cr peaked at 5.91 (baseline 0.90); continues to improve, now at 4.06 Likely ATN from severe hypovolemia from GI losses from C diff colitis and reduced p.o. intake Nephrology following, continue LR @75 mls/h Follow creatinine Acute C diff colitis with sepsis Pt with N/V/D and abd pain x4 days prior to presentation CTA of abdomen/pelvis showing question of enteritis vs SBO; SBO ruled out Similar imaging results of partial SBO found on routine f/u CT/MRI 3 weeks ago Met SIRS criteria with tachycardia and tachypnea; no fever, leukocytosis, or lactic acidosis Tested positive for C diff gene, negative for toxin Initially treated with empiric Zosyn x2 days Treated with vancomycin 125 mg p.o. q.6 times 10 days, day 6 Has been tolerating full solid diet, stool still mostly liquid though with some semi-solid component Infectious disease consulted, continue with oral vanc x10 days Tachycardia Pt with frequent PACs and persistent tachycardia as high as 130s Tele also with some short bursts of rapid AFib Asymptomatic, though pt reports feels anxious about her condition Likely multifactorial: Secondary to anxiety and hypovolemia from CDiff colitis Cardiology consulted, will trial small dose of metoprolol 12.5mg bid for now No indication for oral anticoagulation at this point Echocardiogram with normal LVEF 60-65% with grade 1 diastolic dysfunction HR much better controlled with metoprolol Monitor on telemetry, treat as above Question of UTI Pt received Levofloxacin 250mg x1; would be q48h given SCr UA cultures negative Hyponatremia, resolved Initial sodium 128 In the setting of above Pt placed on IVF Monitor Sodium HTN D/C amlodipine pt now on metoprolol Can likely d/c amlodipine at discharge Full Code DVT Prophylaxis: Lovenox Pt requires continued hospitalization due to significant BREANNE requiring continued IVF, specialist consultation with Nephrology, and close monitoring of kidney function. Quality Stroke Does the patient have a stroke diagnosis?: No VTE Prior VTE?: No VTE Risk Level:: Medical - moderate - high VTE Device Contraindication: Treatment Not Indicated VTE Drug Contraindication: N/A - Med Ordered
[2025-08-28 15:39] VITALS: BP 142/80; PULSE 86; RESP 18; TEMP 37; O2SAT 93
[2025-08-28 19:27] VITALS: BP 140/69; PULSE 91; RESP 18; TEMP 36.3; O2SAT 91
--- NOTE | 2025-08-28 22:26 | PC.NURSE ---
ostomy emptied twice this shift. liquid green stool. no pain, stoma and surrounding tissue normal to observation and palpation
[2025-08-28 23:57] VITALS: BP 130/70; PULSE 80; RESP 18; TEMP 36.2; O2SAT 90
[2025-08-29 03:12] VITALS: BP 132/65; PULSE 75; RESP 18; TEMP 36.2; O2SAT 95
[2025-08-29 07:21] LABS: Anion Gap 13 (12-20); Blood Urea Nitrogen 43 mg/dL (9-16); Calcium 7.9 mg/dL (8.4-10.2); Carbon Dioxide 27 mmol/L (22-29); Chloride 108 mmol/L (96-108); Creatinine Clr Calc Pharmacy 19.2; Estimated Glomerular Filt Rate 23; Potassium 3.7 mmol/L (3.3-5.1); Sodium 144 mmol/L (135-145)
[2025-08-29 07:23] VITALS: BP 136/67; PULSE 79; RESP 18; TEMP 37.2; O2SAT 92
[2025-08-29] MEDS: Metoprolol Tartrate 12.5 MG HALFTAB PO ×2 (07:53→20:12)
--- NOTE | 2025-08-29 10:13 | HO.PM.IMPN ---
Subjective Subjective Date of Service: 08/29/25 Interval History: Slowly improving, stool output slowed down Physical Exam Exam: Exam: General: AOx3, no acute distress Resp: CTA bilaterally CVS: S1, S2 GI: +BS, no distention. Overall benign and NT. Colostomy with brown-colored stool, mostly liquid with some semi solid component Skin: Warm, dry Neuro: Cranial nerves II-XII grossly intact bilaterally. Motor grossly intact bilaterally Extremities: No edema Psych: Appropriate affect Vital Signs: Vital Signs: Last Vital Signs Temp 98.9 F 08/29/25 07:23 Pulse 79 08/29/25 07:23 Resp 18 08/29/25 07:23 BP 136/67 08/29/25 07:23 Pulse Ox 92 08/29/25 07:23 O2 Del Method Room Air 08/29/25 07:23 BMI result Body Mass Index 19.4 Objective Data Active Medications Acetaminophen (Acetaminophen 325 Mg Tablet) 650 mg PO Q6H PRN PRN Reason: Pain, Mild 1-3,fever,headache Last Admin: 08/27/25 10:07 Dose: 325 mg Documented By: ROSELYN Comments: Pt only wanted 325mg, as per her home routine. Amlodipine Besylate (Amlodipine Besylate 5 Mg Tablet) 5 mg PO DAILY [facility]; Protocol On Hold: 08/24/25 09:52 Last Admin: 08/24/25 09:30 Dose: 5 mg Documented By: DIYA Calcium Carbonate (Calcium Carbonate 750 Mg Tab.Chew) 750 mg PO Q4H PRN PRN Reason: Heartburn Guaifenesin/Dextromethorphan (Guaifenesin Dm 200/20/10 Ml 10 Ml Syrup) 10 ml PO Q4H PRN PRN Reason: Cough Last Admin: 08/26/25 18:36 Dose: 10 ml Documented By: LATRICIA Heparin Sodium (Porcine) (Heparin Sodium,Porcine 5,000 Unit/Ml Vial) 5,000 unit SUBCUT Q12H [facility] Last Admin: 08/29/25 07:53 Dose: 5,000 unit Documented By: LATRICIA Lactated Ringer's (Lr) 1,000 mls @ 75 mls/hr IVCONT .[id number] [facility] Last Admin: 08/28/25 22:25 Dose: Not Given Documented By: HO.LAFLAMC Non-Admin Reason: IV Running Magnesium Hydroxide (Milk Of Magnesia 30 Ml Oral.Susp) 30 ml PO DAILY PRN PRN Reason: Constipation Melatonin (Melatonin 3 Mg Tablet) 6 mg PO BEDTIME PRN PRN Reason: Insomnia Metoprolol Tartrate (Metoprolol Tartrate 12.5 Mg Halftab) 12.5 mg PO BID [facility]; Protocol Last Admin: 08/29/25 07:53 Dose: 12.5 mg Documented By: LATRICIA Non-Formulary Medication (Trospium) 20 mg PO BID [facility] Ondansetron HCl (Ondansetron Hcl 4 Mg/2 Ml Vial) 4 mg IVPUSH Q8H PRN PRN Reason: Nausea and Vomiting Sodium Chloride (0.9 % Sodium Chloride Flush 3 Ml Syringe) 3 ml IVFLUSH QSHIFT [facility] Last Admin: 08/29/25 07:59 Dose: Not Given Documented By: LATRICIA Non-Admin Reason: IV Running Vancomycin HCl (Vancomycin Hcl 125 Mg Capsule) 125 mg PO Q6H [facility] Last Admin: 08/29/25 07:52 Dose: 125 mg Documented By: LATRICIA Labs 08/27/25 08:31 08/29/25 06:38 Labs: Laboratory Results - last 24 hr 08/29/25 06:38 Anion Gap 13 Estim Creat Clear Calc 19.2 Estimated GFR 23 Random Glucose 99 Calcium 7.9 L Assessment and Plan (1) Enteritis: Status: Acute Plan 70F PMH stage IV colon cancer with pulmonary metastases status post colectomy, Crohn's, hypertension presented with weakness nausea vomiting and diarrhea complicated by acute kidney injury Acute kidney injury with acute metabolic acidosis Acute tubular necrosis Due to diarrhea and hypovolemia Slowly improving with IV hydration, continue to monitor Severe diarrhea Improving C diff gene positive toxin negative likely colonization versus possible sepsis due to acute C diff colitis Continue vancomycin p.o. course day 7 Hyponatremia Resolved Hypertension Amlodipine changed to metoprolol DVT prophylaxis-heparin subQ Full code reason for continued hospitalization: IV hydration for acute kidney injury Quality Stroke Does the patient have a stroke diagnosis?: No VTE Prior VTE?: No VTE Risk Level:: Medical - moderate - high VTE Device Contraindication: Treatment Not Indicated VTE Drug Contraindication: N/A - Med Ordered
[2025-08-29] MEDS: Lactated Ringers 1,000 ML 75 ML IVCONT ×2 (10:16→23:54)
[2025-08-29 11:09] VITALS: BP 131/61; PULSE 80; RESP 18; TEMP 37.1; O2SAT 95
--- NOTE | 2025-08-29 15:21 | MHC.CM.PN ---
EMR REVIEWED AND PER MD ROUNDS, PATIENT IS NOT MEDICALLY CLEARED FOR DISCHARGE DUE TO MANAGEMENT OF BREANNE.
[2025-08-29 15:46] VITALS: BP 127/65; PULSE 87; RESP 18; TEMP 37.1; O2SAT 94
--- NOTE | 2025-08-29 16:25 | P.PNNP_ITS ---
Subjective Subjective Date of Service: 08/29/25 Interval history: Events noted Physical Exam 2 Vital Signs: Vital Signs: Last Vital Signs Temp 98.8 F 08/29/25 15:46 Pulse 87 08/29/25 15:46 Resp 18 08/29/25 15:46 BP 127/65 08/29/25 15:46 Pulse Ox 94 08/29/25 15:46 O2 Del Method Room Air 08/29/25 15:46 BMI result Body Mass Index 19.4 Objective Data Labs 08/27/25 08:31 08/29/25 06:38 Labs: Laboratory Results - last 24 hr 08/29/25 06:38 Sodium 144 Potassium 3.7 Chloride 108 Carbon Dioxide 27 Anion Gap 13 BUN 43 H Creatinine 2.14 H Estim Creat Clear Calc 19.2 Estimated GFR 23 Random Glucose 99 Calcium 7.9 L Microbiology Microbiology Results: Microbiology 08/22/25 13:45 Blood - Venous Blood Culture - Final No growth after 5 days. 08/22/25 13:44 Blood - Venous Blood Culture - Final No growth after 5 days. 08/23/25 Unknown Urine clean catch - Clean Catch Midstream Urine Culture - Final Procedures Date of Service Date of Service: 08/29/25 Assessment & Plan Assessment and plan (1) Hypertension: Status: Acute (2) Atrial arrhythmia: Status: Acute (3) BREANNE (acute kidney injury): Status: Acute (4) High anion gap metabolic acidosis: Status: Acute Plan Acute kidney injury: possibly has an acute tubular necrosis secondary to severe volume depletion from diarrhea due to C diff colitis and poor oral intake as creatinine tends to go up despite volume replacement Dramatic improvement in creatinine in the past 24 hours. Continue hydration keep intake more than output Continue to avoid nephrotoxic agents, contrast, MAUREEN/ARB. High anion gap metabolic acidosis: Resolved, If renal function continues to improve okay to discharge tomorrow Time Spent With Patient Time: Total time managing care of this patient today ____ minutes. Progress Note: Quality Stroke Does the patient have a stroke diagnosis?: No
[2025-08-29 19:17] VITALS: BP 139/68; PULSE 82; RESP 18; TEMP 37.1; O2SAT 91
[2025-08-29 23:53] VITALS: BP 134/68; PULSE 80; RESP 18; TEMP 36.8; O2SAT 91
[2025-08-30 03:16] VITALS: BP 128/66; PULSE 83; RESP 18; TEMP 36.8; O2SAT 91
[2025-08-30 06:28] LABS: Alanine Aminotransferase < 6 U/L (0-31); Albumin Level 2.7 g/dL (3.5-5.0); Alkaline Phosphatase 58 U/L (39-117); Anion Gap 13 (12-20); Aspartate Amino Transferase 18 U/L (5-31); Blood Urea Nitrogen 30 mg/dL (9-16); Calcium 7.6 mg/dL (8.4-10.2); Carbon Dioxide 24 mmol/L (22-29); Chloride 111 mmol/L (96-108); Creatinine Clr Calc Pharmacy 29.6; Estimated Glomerular Filt Rate 37; Hematocrit 28.2 % (37.0-47.0); Hemoglobin 9.0 g/dl (12.0-16.0); Magnesium 1.1 mg/dL (1.6-2.6); Mean Corpuscular HGB Conc 31.9 g/dl (31.0-35.0); Mean Corpuscular Hemoglobin 26.3 pg (27.0-33.0); Mean Corpuscular Volume 82.5 fL (80.0-98.0); NRBC Abs Auto 0.000 X10*3/uL (0.0-0.012); NRBC Pct Auto 0.0 /100WBC (0.0-0.2); Platelet Count 260 X10*3/uL (160-400); Potassium 3.5 mmol/L (3.3-5.1); Red Blood Count 3.42 X10*6/uL (4.20-5.50); Sodium 144 mmol/L (135-145); Total Protein 5.4 g/dL (6.5-8.0); White Blood Count 7.7 X10*3/uL (4.8-10.8)
[2025-08-30] MEDS: Magnesium Sulfate/H2O 2 GM/50 ML PIGGYBACK IV ×2 (06:55→09:02)
[2025-08-30 07:54] VITALS: BP 135/74; PULSE 82; RESP 18; TEMP 36.3; O2SAT 92
[2025-08-30] MEDS: Metoprolol Tartrate 12.5 MG HALFTAB PO (09:02)
[2025-08-30] MEDS: 0.9 % Sodium Chloride Flush 3 ML SYRINGE IVFLUSH (09:03)
--- NOTE | 2025-08-30 10:19 | HO.PM.IMPN ---
Subjective Subjective Date of Service: 08/30/25 Interval History: wants to go home, but mag 1, some weakness Physical Exam Exam: Exam: General: AOx3, no acute distress Resp: CTA bilaterally CVS: S1, S2 GI: +BS, no distention. Overall benign and NT. Colostomy with brown-colored stool, mostly liquid with some semi solid component Skin: Warm, dry Neuro: Cranial nerves II-XII grossly intact bilaterally. Motor grossly intact bilaterally Extremities: No edema Psych: Appropriate affect Vital Signs: Vital Signs: Last Vital Signs Temp 97.4 F 08/30/25 07:54 Pulse 82 08/30/25 07:54 Resp 18 08/30/25 07:54 BP 135/74 08/30/25 07:54 Pulse Ox 92 08/30/25 07:54 O2 Del Method Room Air 08/30/25 07:54 BMI result Body Mass Index 19.4 Objective Data Active Medications Acetaminophen (Acetaminophen 325 Mg Tablet) 650 mg PO Q6H PRN PRN Reason: Pain, Mild 1-3,fever,headache Last Admin: 08/27/25 10:07 Dose: 325 mg Documented By: ROSELYN Comments: Pt only wanted 325mg, as per her home routine. Amlodipine Besylate (Amlodipine Besylate 5 Mg Tablet) 5 mg PO DAILY [facility]; Protocol On Hold: 08/24/25 09:52 Last Admin: 08/24/25 09:30 Dose: 5 mg Documented By: DIYA Calcium Carbonate (Calcium Carbonate 750 Mg Tab.Chew) 750 mg PO Q4H PRN PRN Reason: Heartburn Guaifenesin/Dextromethorphan (Guaifenesin Dm 200/20/10 Ml 10 Ml Syrup) 10 ml PO Q4H PRN PRN Reason: Cough Last Admin: 08/26/25 18:36 Dose: 10 ml Documented By: LATRICIA Heparin Sodium (Porcine) (Heparin Sodium,Porcine 5,000 Unit/Ml Vial) 5,000 unit SUBCUT Q12H [facility] Last Admin: 08/30/25 09:02 Dose: 5,000 unit Documented By: SHIMON Magnesium Sulfate (Magnesium Sulfate/H2o) 2 gm in 50 mls @ 25 mls/hr IV ONCE ONE Stop: 08/30/25 11:29 Last Admin: 08/30/25 09:02 Dose: 25 mls/hr Documented By: SHIMON Magnesium Hydroxide (Milk Of Magnesia 30 Ml Oral.Susp) 30 ml PO DAILY PRN PRN Reason: Constipation Magnesium Oxide (Magnesium Oxide 400 Mg Tablet) [facility] Last Admin: 08/30/25 09:02 Dose: 800 mg Documented By: SHIMON Melatonin (Melatonin 3 Mg Tablet) 6 mg PO BEDTIME PRN PRN Reason: Insomnia Metoprolol Tartrate (Metoprolol Tartrate 12.5 Mg Halftab) 12.5 mg PO BID [facility]; Protocol Last Admin: 08/30/25 09:02 Dose: 12.5 mg Documented By: SHIMON Non-Formulary Medication (Trospium) 20 mg PO BID [facility] Ondansetron HCl (Ondansetron Hcl 4 Mg/2 Ml Vial) 4 mg IVPUSH Q8H PRN PRN Reason: Nausea and Vomiting Sodium Chloride (0.9 % Sodium Chloride Flush 3 Ml Syringe) 3 ml IVFLUSH QSHIFT [facility] Last Admin: 08/30/25 09:03 Dose: 3 ml Documented By: SHIMON Vancomycin HCl (Vancomycin Hcl 125 Mg Capsule) 125 mg PO Q6H [facility] Last Admin: 08/30/25 06:11 Dose: 125 mg Documented By: NIRALILAMC Labs 08/30/25 05:18 08/30/25 05:18 Labs: Laboratory Results - last 24 hr 08/30/25 05:18 MCV 82.5 MCH 26.3 L MCHC 31.9 RDW 16.9 H Plt Count 260 MPV 9.5 Absolute Nucleated RBC 0.000 Nucleated RBC % (auto) 0.0 Anion Gap 13 Estim Creat Clear Calc 29.6 Estimated GFR 37 Random Glucose 95 Calcium 7.6 L Magnesium 1.1 L* Total Bilirubin 0.2 Direct Bilirubin < 0.2 AST 18 ALT < 6 Alkaline Phosphatase 58 Total Protein 5.4 L Albumin 2.7 L Assessment and Plan (1) Enteritis: Status: Acute Plan 70F PMH stage IV colon cancer with pulmonary metastases status post colectomy, Crohn's, hypertension presented with weakness nausea vomiting and diarrhea complicated by acute kidney injury Acute kidney injury with acute metabolic acidosis Acute tubular necrosis Due to diarrhea and hypovolemia initially Slow improvement with IV hydration, now with significant improvement, cr down from 5.91 on 08/25/25 to 1.39 today Severe diarrhea Improving C diff gene positive toxin negative colonization versus false toxin negative and sepsis due to acute C diff colitis Continue vancomycin p.o. course day 8 Hyponatremia Resolved acute symptomatic hypomagnesemia replace and monitor Hypertension Amlodipine changed to metoprolol DVT prophylaxis-heparin subQ Full code reason for continued hospitalization: hypomagnesemia Quality Stroke Does the patient have a stroke diagnosis?: No VTE Prior VTE?: No VTE Risk Level:: Medical - moderate - high VTE Device Contraindication: Treatment Not Indicated VTE Drug Contraindication: N/A - Med Ordered
--- NOTE | 2025-08-30 10:26 | PM.DS ---
DS: Providers Provider Date of Service: 08/30/25 Date of admission: 08/22/25 15:29 Date of discharge: 08/30/25 Primary care physician: TERRY Hernandez Consults: 08/22/25 19:08 Consult to General Surgery Routine Consulting Provider: [facility] Reason for consultation: ?Partial SBO 08/23/25 06:15 Consult to Nephrology Routine Consulting Provider: [facility] Reason for consultation: Creatinine increasing 08/23/25 18:32 Consult to Infectious Diseases Routine Consulting Provider: [facility] Reason for consultation: ?Acute CDiff colitis 08/23/25 19:18 Consult to Cardiology Routine Consulting Provider: [facility] Reason for consultation: Persistent tachycardia up to 130s, frequent PACs DS: Diagnosis Discharge Diagnosis (1) Enteritis: Status: Acute DS: Summary Hospital Course Hospital Course: from initial hpi: 70-year-old female with a PMH significant for?HTN, Crohn's disease, colorectal cancer with pulmonary metastasis status post colectomy 2018, chemotherapy and radiation, recurrence in 05/2024 status post chemotherapy who presents to the ED with?N/V/D and generalized weakness x4 days. Pt reports she underwent a routine 3-month MRI and CT of chest and abd[place] [facility] [place]. Pt was asymptomatic at that time. Was called back [place] [facility] [place] [place] imaging was suggestive of possible partial SBO. Pt was hospitalized overnight but had no N/V/D or abd pain. Was thought that imaging showed adhesions rather than SBO. Pt was discharged without incident and told to eat small meals. Pt remained asymptomatic until four days ago on when she developed N/V/D. Could not keep anything down and had consistent diarrhea. N/V resolved on Friday, but pt then began experiencing abd pain and leg cramping that night. Has since felt weak and exhausted, which prompted visit to the ED. No F/C. In the ED pt's vitals were significant for tachycardia of 121, tachypnea of 23, and mild hypertention. Labs were significant for sodium of 128, anion gap 26, BUN 114, and creatinine 4.23. CXR showed chronic interstitial lung disease with underlying neoplasm cannot be excluded. Chest CT with severe emphysema and new RUL consolidation and right nodule. CT of abd/pelvis concerning for nonspecific enteritis vs partial SBO; ischemic enteritis also on the differential. Pt was treated in the ED with ondansetron, famotidine, diazepam, IVF, acetaminophen, and Zosyn. Pt is admitted to the hospital to [facility] in the setting of intractable N/V/D and abd pain secondary to enteritis vs. partial SBO. hospital course: Patient was admitted for acute kidney injury from nausea vomiting and diarrhea complicated by acute metabolic acidosis due to acute tubular necrosis. Was given IV hydration and slowly improved, creatinine went down from 5.91 on 08/25 to 1.39 at time of discharge. She will continue to follow up with Nephrology as outpatient. For severe diarrhea this was likely due to sepsis from C diff colitis. Was treated with vancomycin and high-output resolved. She will complete 2 week course on discharge. Acute hyponatremia resolved. Course complicated by acute symptomatic hypomagnesemia which was replaced. Patient will continue on magnesium supplement and should be monitored outpatient. For hypertension amlodipine was changed to metoprolol. Patient is feeling better and will be discharged home. Time Attestation Discharge Coordination Time (in mins): 37 Quality: Safe Use of Opioids Does Pt have an Active Cancer Diagnosis on the Problem List?: Yes Opioid Measure Date for [facility] Report: 07/31/25 Opioid Measure Time for [facility] Report: 14:08 Quality: Stroke Does the patient have a stroke diagnosis?: No Physical Exam Exam: Exam: General: AOx3, no acute distress Resp: CTA bilaterally CVS: S1, S2 GI: +BS, no distention. Overall benign and NT. Colostomy with brown-colored stool, mostly liquid with some semi solid component Skin: Warm, dry Neuro: Cranial nerves II-XII grossly intact bilaterally. Motor grossly intact bilaterally Extremities: No edema Psych: Appropriate affect Vital Signs: Vital Signs: Last Vital Signs Temp 97.4 F 08/30/25 07:54 Pulse 82 08/30/25 07:54 Resp 18 08/30/25 07:54 BP 135/74 08/30/25 07:54 Pulse Ox 92 08/30/25 07:54 O2 Del Method Room Air 08/30/25 07:54 BMI result Body Mass Index 19.4 DS: Data Data Completed and Pending Labs on day of discharge: Laboratory Results - last 24 hr 08/30/25 05:18 WBC 7.7 RBC 3.42 L Hgb 9.0 L Hct 28.2 L MCV 82.5 MCH 26.3 L MCHC 31.9 RDW 16.9 H Plt Count 260 MPV 9.5 Absolute Nucleated RBC 0.000 Nucleated RBC % (auto) 0.0 Sodium 144 Potassium 3.5 Chloride 111 H Carbon Dioxide 24 Anion Gap 13 BUN 30 H Creatinine 1.39 Estim Creat Clear Calc 29.6 Estimated GFR 37 Random Glucose 95 Calcium 7.6 L Magnesium 1.1 L* Total Bilirubin 0.2 Direct Bilirubin < 0.2 AST 18 ALT < 6 Alkaline Phosphatase 58 Total Protein 5.4 L Albumin 2.7 L Discharge Plan Discharge Anticipated Discharge Date/Time: 08/30/25 10:22 Patient Disposition: Home, Self-Care Discharge Diagnosis: cdif, breanne Referrals: Iggy Grajeda MD [Physician, Nephrology] - 1 Week Anne Gómez PA [Primary Care Provider, Hospitalist] - 1 Week Discharge Medications: New vancomycin 125 mg Capsule 125 mg PO Q6H 6 Days Qty: 24 0RF metoprolol tartrate 25 mg tablet 12.5 mg PO BID Qty: 45 0RF magnesium oxide 400 mg (241.3 mg magnesium) Tablet 800 mg PO DAILY Qty: 180 0RF Continued ketoconazole 2 % cream 1 appl topical QD-BID PRN (Reason: Rash) trospium 20 mg tablet 20 mg PO BID (DME) Oxygen Home Use Kit See Rx Instructions .Route Qty: 1 0RF Rx Instructions: Discontinue supplemental oxygen. Resting O2 93% Discontinued amlodipine 5 mg tablet 5 mg PO DAILY Qty: 90 1RF Discharge Orders: Discharge Order (Routine); Ordered 08/30/25 Ordered By: Kodi Gonzalez Diet: Advance to usual diet Activity on Discharge: As tolerated Stand Alone Forms: Patient Portal Discharge page Print Language: Mauritanian Other Ambulatory Orders: Basic Metabolic Panel (Routine) Timeframe: 1 Week Facility: [facility] - Location: Laboratory Ordered By: Kodi Gonzalez Magnesium (Routine) Timeframe: 1 Week Facility: [facility] - Location: Laboratory Ordered By: Kodi Gonzalez Care Plan Goals: Recovery Health Concerns: Acute kidney injury, diarrhea, C diff Plan of Treatment: 6 more days of oral vancomycin, started on magnesium supplement, follow up Nephrology Assessment: See above
[2025-08-30 11:43] VITALS: BP 132/72; PULSE 84; RESP 18; TEMP 36.7; O2SAT 92
--- NOTE | 2025-08-30 13:05 | P.PNNP_ITS ---
Subjective Subjective Date of Service: 08/30/25 Interval history: wants to go home, but mag 1, some weakness Physical Exam 2 Vital Signs: Vital Signs: Last Vital Signs Temp 98.0 F 08/30/25 11:43 Pulse 84 08/30/25 11:43 Resp 18 08/30/25 11:43 BP 132/72 08/30/25 11:43 Pulse Ox 92 08/30/25 11:43 O2 Del Method Room Air 08/30/25 11:43 BMI result Body Mass Index 19.4 Objective Data Labs 08/30/25 05:18 08/30/25 05:18 Labs: Laboratory Results - last 24 hr 08/30/25 05:18 WBC 7.7 RBC 3.42 L Hgb 9.0 L Hct 28.2 L MCV 82.5 MCH 26.3 L MCHC 31.9 RDW 16.9 H Plt Count 260 MPV 9.5 Absolute Nucleated RBC 0.000 Nucleated RBC % (auto) 0.0 Sodium 144 Potassium 3.5 Chloride 111 H Carbon Dioxide 24 Anion Gap 13 BUN 30 H Creatinine 1.39 Estim Creat Clear Calc 29.6 Estimated GFR 37 Random Glucose 95 Calcium 7.6 L Magnesium 1.1 L* Total Bilirubin 0.2 Direct Bilirubin < 0.2 AST 18 ALT < 6 Alkaline Phosphatase 58 Total Protein 5.4 L Albumin 2.7 L Microbiology Microbiology Results: Microbiology 08/22/25 13:45 Blood - Venous Blood Culture - Final No growth after 5 days. 08/22/25 13:44 Blood - Venous Blood Culture - Final No growth after 5 days. 08/23/25 Unknown Urine clean catch - Clean Catch Midstream Urine Culture - Final Procedures Date of Service Date of Service: 08/30/25 Assessment & Plan Assessment and plan (1) Hypertension: Status: Acute (2) Atrial arrhythmia: Status: Acute (3) BREANNE (acute kidney injury): Status: Acute (4) High anion gap metabolic acidosis: Status: Acute Plan Acute kidney injury: possibly has an acute tubular necrosis secondary to severe volume depletion from diarrhea due to C diff colitis and poor oral intake as creatinine tends to go up despite volume replacement Dramatic improvement in creatinine in the past 24 hours. Continue hydration keep intake more than output Continue to avoid nephrotoxic agents, contrast, MAUREEN/ARB. High anion gap metabolic acidosis: Resolved, OK to DC from a renal stand point Time Spent With Patient Time: Total time managing care of this patient today ____ minutes. Progress Note: Quality Stroke Does the patient have a stroke diagnosis?: No
[2025-08-30 14:06] LABS: Magnesium 2.0 mg/dL (1.6-2.6)
--- NOTE | 2025-08-30 14:47 | MHC.CM.PN ---
SECOND IMM GIVEN 08/30. PATIENT IS MEDICALLY CLEARED FOR DISCHARGE HOME SELF-CARE, HER WILL TRANSPORT HER HOME TODAY.
[2025-08-31 15:03] LABS: Anti Nuclear Antibody Screen POSITIVE (NEGATIVE); Anti Nuclear Antibody Titer 1:40 titer
--- NOTE | 2025-09-15 14:48 | PC.NURSE ---
Patient pain scale 6/10 medicated with morphine ok per md.
== END 2025-08-30 15:28 | disposition home or self-care (01) | DRG 871 ==
LOC: HO.ED 15:30 → HO.EDOVER 15:35 → HO.S3 08-23 09:20 → HO.IMC 08-23 19:24
PROVIDERS: Internal Medicine Critical Care Medicine; Admitting Provider Student in an Organized Health Care Education/Training Program; Emergency Provider Emergency Medicine; PCP Physician Assistant; Visit Provider Internal Medicine
DX: A41.9 Sepsis, unspecified organism (principal); N17.0 Acute kidney failure with tubular necrosis; A04.72 Enterocolitis due to Clostridium difficile, not specified as recurrent; E87.1 Hypo-osmolality and hyponatremia; E87.3 Alkalosis; E87.21 Acute metabolic acidosis; E86.1 Hypovolemia; I49.1 Atrial premature depolarization; Z93.3 Colostomy status; Z99.81 Dependence on supplemental oxygen; Z85.038 Personal history of other malignant neoplasm of large intestine; Z87.891 Personal history of nicotine dependence; Z79.899 Other long term (current) drug therapy
CPT/HCPCS: 36415; 71045; 71250; 74176; 80048; 80053; 80076; 81001; 82947; 83605; 83690; 83735; 85007; 85027; 85999; 86038; 86039; 86160; 86704; 86706; 86803; 87040; 87086; 87324; 87340; 87389; 87493; 87507; 87633; 93005; 93306; 97116; 97162; 97530; 99285; J0131; J1308; J1644; J1650; J1956; J2270; J2405; J2543; J3360; J3475; J7120; P9047; Q9957

== ENCOUNTER → 2025-08-22 11:38 | Outpatient (BNV) | payer MEDICARE, SELFPAY | PROVIDERS: Admitting Provider Student in an Organized Health Care Education/Training Program; Emergency Provider Emergency Medicine; PCP Physician Assistant; Visit Provider Internal Medicine Cardiovascular Disease | DX: I49.1 Atrial premature depolarization (principal); I45.10 Unspecified right bundle-branch block; R00.0 Tachycardia, unspecified | CPT/HCPCS: 93010 ==

== ENCOUNTER → 2025-08-22 11:38 | Outpatient (BNV) | payer MEDICARE, SELFPAY | PROVIDERS: Emergency Provider Emergency Medicine; PCP Physician Assistant; Visit Provider Radiology Diagnostic Radiology | DX: N28.81 Hypertrophy of kidney (principal); R10.84 Generalized abdominal pain; E27.8 Other specified disorders of adrenal gland; J43.2 Centrilobular emphysema | CPT/HCPCS: 71250; 74176 ==

== ENCOUNTER 2025-08-22 15:29 | Outpatient (BNV) | payer MEDICARE, SELFPAY | END 2025-08-23 15:26 | PROVIDERS: Admitting Provider Student in an Organized Health Care Education/Training Program; Emergency Provider Emergency Medicine; PCP Physician Assistant; Visit Provider Internal Medicine Cardiovascular Disease | DX: R00.0 Tachycardia, unspecified (principal); I49.1 Atrial premature depolarization; I45.10 Unspecified right bundle-branch block | CPT/HCPCS: 93010 ==

== ENCOUNTER 2025-08-22 15:29 | Outpatient (BNV) | payer MEDICARE, SELFPAY | END 2025-08-25 07:00 | PROVIDERS: Admitting Provider Student in an Organized Health Care Education/Training Program; Emergency Provider Emergency Medicine; PCP Physician Assistant; Visit Provider Internal Medicine Cardiovascular Disease | DX: I51.89 Other ill-defined heart diseases (principal); I34.81 Nonrheumatic mitral (valve) annulus calcification | CPT/HCPCS: 93306 ==

== ENCOUNTER 2025-08-22 15:29 | Outpatient (BNV) | payer MEDICARE, SELFPAY | END 2025-08-25 11:10 | PROVIDERS: Admitting Provider Student in an Organized Health Care Education/Training Program; Emergency Provider Emergency Medicine; PCP Physician Assistant; Visit Provider Radiology Diagnostic Radiology | DX: J43.9 Emphysema, unspecified (principal); R91.8 Other nonspecific abnormal finding of lung field | CPT/HCPCS: 71045 ==

== ENCOUNTER → 2025-08-22 15:29 | Outpatient (BNV) | payer MEDICARE, SELFPAY | PROVIDERS: Admitting Provider Student in an Organized Health Care Education/Training Program; Emergency Provider Emergency Medicine; PCP Physician Assistant; Visit Provider Internal Medicine Cardiovascular Disease | DX: I49.8 Other specified cardiac arrhythmias (principal) | CPT/HCPCS: 99222 ==

== ENCOUNTER → 2025-08-22 15:29 | Outpatient (BNV) | payer MEDICARE, SELFPAY | PROVIDERS: Admitting Provider Student in an Organized Health Care Education/Training Program; Emergency Provider Emergency Medicine; PCP Physician Assistant; Visit Provider Internal Medicine Hypertension Specialist | DX: I10 Essential (primary) hypertension (principal); I49.8 Other specified cardiac arrhythmias; N17.9 Acute kidney failure, unspecified; E87.29 Other acidosis | CPT/HCPCS: 99232 ==

== ENCOUNTER → 2025-08-22 15:29 | Outpatient (BNV) | payer MEDICARE, SELFPAY | PROVIDERS: Admitting Provider Student in an Organized Health Care Education/Training Program; Emergency Provider Emergency Medicine; PCP Physician Assistant; Visit Provider Internal Medicine Critical Care Medicine | DX: I10 Essential (primary) hypertension (principal); N17.9 Acute kidney failure, unspecified | CPT/HCPCS: 99223; 99232; 99499 ==

== ENCOUNTER → 2025-08-22 15:29 | Outpatient (BNV) | payer MEDICARE, SELFPAY | PROVIDERS: Admitting Provider Student in an Organized Health Care Education/Training Program; Emergency Provider Emergency Medicine; PCP Physician Assistant; Visit Provider Student in an Organized Health Care Education/Training Program | DX: K52.9 Noninfective gastroenteritis and colitis, unspecified (principal) | CPT/HCPCS: 99223; 99233 ==

== ENCOUNTER → 2025-08-22 15:29 | Outpatient (BNV) | payer MEDICARE, SELFPAY | PROVIDERS: Admitting Provider Student in an Organized Health Care Education/Training Program; Emergency Provider Emergency Medicine; PCP Physician Assistant; Visit Provider Physician Assistant Surgical | DX: K52.9 Noninfective gastroenteritis and colitis, unspecified (principal) | CPT/HCPCS: 99222; 99232 ==

== ENCOUNTER → 2025-08-22 15:29 | Outpatient (BNV) | payer MEDICARE, SELFPAY | PROVIDERS: Admitting Provider Student in an Organized Health Care Education/Training Program; Emergency Provider Emergency Medicine; PCP Physician Assistant; Visit Provider Internal Medicine | DX: A04.72 Enterocolitis due to Clostridium difficile, not specified as recurrent (principal) | CPT/HCPCS: 99222 ==

== ENCOUNTER 2025-09-05 13:50 | Outpatient (REF) | payer MEDICARE, SELFPAY ==
[2025-09-05 19:47] LABS: Anion Gap 14 (12-20); Blood Urea Nitrogen 18 mg/dL (9-16); Calcium 8.7 mg/dL (8.4-10.2); Carbon Dioxide 27 mmol/L (22-29); Chloride 101 mmol/L (96-108); Estimated Glomerular Filt Rate 52; Magnesium 2.0 mg/dL (1.6-2.6); Potassium 4.2 mmol/L (3.3-5.1); Sodium 138 mmol/L (135-145)
== END 2025-09-05 13:51 | disposition home or self-care (01) ==
LOC: HO.HMGCLDS 13:50
PROVIDERS: PCP Physician Assistant; Visit Provider Internal Medicine
DX: N17.9 Acute kidney failure, unspecified (principal)
CPT/HCPCS: 36415; 80048; 83735

== ENCOUNTER 2025-09-08 15:03 | Outpatient (AMB) | payer MEDICARE, SELFPAY ==
[2025-09-08 15:09] VITALS: BP 120/58; PULSE 94; O2SAT 91; BMI 19.5
--- NOTE | 2025-09-08 15:09 | HO.NEPHOV_ITS ---
Vital Signs 09/08/25 15:09 Height 5 ft 3 in Weight 110 lb BMI 19.5 BP 120/58 L Blood Pressure Location Lt brachial Position Sitting Pulse 94 Pulse Source Pulse Oximeter Pulse Oximetry (%) 91 L Oxygen Delivery Method Room Air Intake Visit Reasons: [facility] [place]/U confr Child Custody Evaluator Required: No Accompanied by: Spouse Allergies infliximab (Remicade) Adverse Reaction (Unknown, Verified 09/08/25 15:11) arthralgia salacyclic acid wart remover Allergy (Unknown, Uncoded 08/22/25 11:27) hives, swollen joints Asacol Adverse Reaction (Unknown, Uncoded 08/22/25 11:27) GI upset Medication List - Last Reconciled 09/08/25 by Iggy Grajeda MD ketoconazole 2% 1 appl topical QD-BID PRN magnesium oxide 800 mg (2 x 400 mg (241.3 mg magnesium)) PO DAILY metoprolol tartrate 12.5 mg (1/2 x 25 mg) PO BID Oxygen Home Use Discontinue supplemental oxygen. Resting O2 93% trospium 20 mg PO BID vancomycin 125 mg PO Q6H 6 days HPI Comments Details: The patient is a 70-year-old female presenting with a follow-up on kidney function and management of acute kidney injury. She was hospitalized on August 30 due to significantly reduced kidney function, which had improved by the time of the visit. Initially, her kidney function was critically low at 7%, necessitating potential dialysis, but it improved to 52% with treatment. The acute kidney injury was attributed to severe dehydration, likely exacerbated by diarrhea and a possible undiagnosed infection during a prior hospital stay. The patient had experienced significant diarrhea, which contributed to her dehydration and subsequent kidney issues. The patient has a history of colon cancer and underwent routine scans at [facility], which were clear except for a bowel adhesion. She was initially suspected of having a bowel obstruction, but it was later identified as an adhesion causing her symptoms. The patient is currently not undergoing chemotherapy or radiation and is scheduled for follow-up scans in February. She has been advised to maintain adequate hydration, especially given her history of dehydration and kidney issues. The patient has a history of hypertension, managed with a low dose of metoprolol, which was prescribed by a hospital physician. [facility] Medical History Anemia of chronic disease Hypertension Ureteral stent present Lung cancer Cancer of colon with rectum Surgical History S/P colon resection S/P CARLOS MANUEL-BSO (total abdominal hysterectomy and bilateral salpingo-oophorectomy) Hx of appendectomy Hx of tonsillectomy Family History Father Colon cancer Heart attack Social History Household Members: Spouse Housing: Condominium Do you presently have visiting nurse or other home services: No Alcohol intake: never Patient Tobacco Use Status: Former Tobacco user Tobacco use type: Cigarette Second Hand Smoke Exposure: No service: No Current occupational status: disabled Cognitive needs: No Hearing needs: No Vision needs: Yes (reading glasses) Physical Exam Vital Signs: Last Vital Signs Pulse 94 09/08/25 15:09 BP 120/58 L 09/08/25 15:09 Pulse Ox 91 L 09/08/25 15:09 Oxygen Delivery Method Room Air 09/08/25 15:09 BMI result Body Mass Index 19.5 Comfortable Neck supple no JVD. Lungs entry equal no rales. Heart S1-S2 heard no gallop or rub. Abdomen soft nontender. Neuro alert awake oriented. No asterixis. Extremities no edema. Results Reviewed Nephrology Results: Hgb, (12.0-16.0) 9.0 g/dl L 08/30/25 WBC, (4.8-10.8) 7.7 X10*3/uL 08/30/25 Plt Count, (160-400) 260 X10*3/uL 08/30/25 Sodium, (135-145) 138 mmol/L 09/05/25 Potassium, (3.3-5.1) 4.2 mmol/L 09/05/25 Chloride, (96-108) 101 mmol/L 09/05/25 Carbon Dioxide, (22-29) 27 mmol/L 09/05/25 BUN, (9-16) 18 mg/dL H 09/05/25 Creatinine, (0.5-1.4) 1.04 mg/dL 09/05/25 Calcium, (8.4-10.2) 8.7 mg/dL Δ 09/05/25 Urine Protein, (Neg-Trace) 100 (2+) mg/dL H 08/23/25 Assessment & Plan Assessment & Plan (1) BREANNE (acute kidney injury): Code(s): N17.9 - Acute kidney failure, unspecified Category: Medical Plan BREANNE due to severe dehydration peak creatinine was more than 4. With IV hydration serum creatinine returned to baseline. Recent creatinine is 1.05 renal function is back to baseline. Encouraged her to increase p.o. fluid intake Avoid nephrotoxic agents including NSAIDs. Shall monitor renal function periodic Orders: Orders 2 Basic Metabolic Panel 6 Months D63.8 - Anemia in other chronic diseases classified elsewhere Coding Level of Care Code Est Pt Level 4 (65948) Diagnoses BREANNE (acute kidney injury) N17.9
--- OUTSIDE RECORDS SUMMARY | 2025-09-08 18:08 | XMS_ITS | Encounter Summary ---
Author Organization [facility] Address [address] [place] [address] Phone Care Team Providers Care Ux Manager Name Role Phone Frankie Padron MD Primary Care Provider Saniya Tan MD Unavailable Domenic Goldsmith MD, PhD Unavailable [phone] Mary Sanon MD Unavailable [phone] Davina Peraza RN Unavailable [email or web address] Encounter Details Date Type Department Care Team (Late st Contact Info) Description 09/23/[address], [facility] Imaging - [address], [address] [place] [address] Social History Tobacco Use Types Packs/Day Years Used Date Smoking Tobacco: Former Cigarettes 1 45 0 02/11/1976 - 05/21/2020 Smokeless Tobacco: Never Alcohol Use Standard Drinks/Week Comments Yes 0 (1 standard drink = 0.6 oz pur e alcohol) rare 2 drinks/ year Home Health Assessment: Transportation Answer Date Recorded Lack of Transportation (Medical) No 06/23/2024 Lack of Transportation (Non-Medical) No 06/23/2024 Patient Unable or Declines to Respond No 06/23/2024 Education Answer Date Recorded Are you interested in more education? Not on kenton e 02/28/2023 Are you concerned about learning? Not on file 02/28/2023 No 02/28/2023 No 02/28/2023 Digital Access Answer Date Recorded No 04/01/2023 No 04/01/2023 Reliable internet access at home? Not on file 04/01/2023 Device with a working camera? Not on file Intimate Partner Violence Answer Date R ecorded Are you denied basic needs s uch as food, clothing, or medical care? No 09/08/2024 In the past 12 months have y ou been in a relationship with a person who hurts, threatens, or tries to control you? No 09/08/2024 Are you denied basic needs s uch as food, clothing, or medical care? No 09/08/2024 In the past 12 months have y ou been in a relationship with a person who hurts, threatens, or tries to control you? No 09/08/2024 Comments No Sex and Gender Information Value Date Recorded Sex Assigned at Female 04/16/2020 12:26 PM EDT Legal Sex Female 9:39 AM EDT Gender Identity Female 04/16/2020 12:26 PM EDT Sexual Orientation Straight 04/16/2020 12 :26 PM EDT documented as of this encounter Plan of Treatment Upcoming Encounters Date Type Department Care Team (Latest Contact Info) Description 02/15/2025 Procedure Pass MRI, [facility] General Imaging - [place] [address] [facility], [address] [place] [address] 08/12/[address], [facility] - [place] [address] [facility], [address] [place] [address] 08/12/[address], [facility] - [place] [address] [facility], [address] [place] [address] 08/12/2025 Procedure Pass MRI, [facility] - [place] [address] [facility], [address] [place] [address] 10/14/2025 1:00 PM EST Office Visit [facility] [address] [facility] 9th [place] [address] Bettina Braden MD [address] [place] [id number] [email or web address] 10/19/2025 3:00 PM EST Infusion [facility] [place] [address] [place] [address] Hany Leach MD 02/06/2026 10:30 AM EDT Blood Draw [facility] Lab [address] [address] Saniya Tan MD [address] [address] [email or web address] 02/06/2026 11:[address], [facility] Imaging - [address], [address] [place] [address] Saniya Tan MD [address] [place] [address] [email or web address] 02/06/2026 12:30 PM EDT Appointment MRI, [facility] - [address], [address] [place] [address] Saniya Tan MD [address] [place] [id number] [email or web address] 02/07/2026 9:30 AM EDT Appointment MRI, [facility] - [address], [address] [place] [address] Domenic Goldsmith MD, PhD [address] [address] [email or web address] 02/14/2026 11:00 AM EDT [facility] [address] [facility], 7th [address], [address] [place] [address] Saniya Tan MD [address] [address] [email or web address] 02/14/2026 11:00 AM EDT Office Visit [facility] [address] [facility], 7th Floor, [address] [place] [address] Roxana Ornelas MD [address] [facility] [address] [place] [address] [email or web address] 02/21/2026 10:00 AM EDT Telemedicine - audio only [facility] General & Gastrointestinal Surgery [address] [facility], 4th Floor, [address] [place] [address] Janie Blackmon FNP [address] [facility] [address] [place] [id number] [email or web address] documented as of this encounter Visit Diagnoses Not on filedocumented in this encounter Care Teams Ux Manager Relationship Specialty Start Date End Date Frankie Padron MD [address] [place] [address] [place] [address] PCP - General Internal Medicine 07/16/19 Saniya Tan MD [address] [facility] [address] [place] [address] [email or web address] Primary Oncologist Medical Oncology 12/22/20 Domenic Goldsmith MD, PhD [address] [facility] [address] [place] [address] [email or web address] Surgical [email or web address] 01/11/21 Mary Sanon MD [address] [facility] 3 [place] [address] [email or web address] Oncology 07/03/22 Davina Peraza, RN [address] [place] [id number] [email or web address] Primary Infusion Nurse 11/20/23 documented as of this encounter Additional Source Comments The information contained in this document represents components of the legal health record. It is not the complete legal health record.[facility]
--- OUTSIDE RECORDS SUMMARY | 2025-09-08 18:08 | XMS_ITS ---
Author Organization [facility] Address [address] [facility] [address] [place] [address] Phone Care Team Providers Care Fisher Swordfish Name Role Phone Frankie Padron MD Primary Care Provider Saniya Tan MD Unavailable Domenic Goldsmith MD, PhD Unavailable [phone] Mary Sanon MD Unavailable [phone] Davina Peraza RN Unavailable [email or web address] Active Problems Patient Care Coordination No te Formatting of this note migh t be different from the original. Pre-Release Checklist Guidance Document This is a guide to help you find the information needed to complete the pre- release checklist. If changes are made to the plan, please edit the dates below as needed. The chief of staff doctor needs to review this information each time the checklist is used. Date of Consent: 11/07/23 Treatment Initiation Note (If Applicable) 11/07/23 Off Label Note (If Applicable) N/A Date of C1D1 Height and Weight: 11/07/23 Most recent documentation of treatment plan (i.e. Dose Modifications): 07/20/24 12/27/19 PA was done on CMM for albina DILLON [facility] [employer] [phone]. 12/28 Emailed Rossi Richardson: [facility] said the PA for Davina Monroy for Albina ODT was denied. We have not received the denial/appeal information from the plan yet. Please scan us a LMN if you would like to appeal. Primary Nurse Ghazala Swift 11/24/23 GF injection copay is $3,4449 a month - patient will have to stay with yaw 8 for disconnect/ GF inj. Team is aware . MM 04/12/24 Janine Mariscal RN Resource nurse will do monthly port flushes at [facility] for our patient starting next week . They will call patient MMCD Problem Noted Date Diagnosed Date SBO (small bowel obstruction) 08/06/2025 S/P exploratory laparotomy 05/27/2024 Assessment & Plan (05/28/2024 6:32 AM EDT): NEURO: #Pain Control - Epidural B1H10 04/04/20 - RTC Tylenol PULM: #Primary respiratory acidosis - hypoventilation on vent intra-op - Trend ABGs - IS, OOB, pulmonary toilet CV: - Lactate flat, s/p large volume resuscitation intra-op - Some concern expressed by surgical team that patient is at higher risk of bleeding overnight - trend CBCs q4 - Large bore access - maintain GI: #Rectal adenocarcinoma with mets s/p resection - High risk of ileus - bowel injury intra-op requiring small bowel resection and anastomosis - monitor drain output - No empiric ABX per primary team - Strict NPO - NGT LWS - home management supervisor RENAL/: #CKD iso obstructive uropathy s/p stenting - Per urology service, fry to remain x2 weeks - Cr at baseline, CTM - mIVF at 75 cc/h - close monitoring I/O - Goal TBB neutral to positive overnight ENDO: - RISS ID: - monitor lactate, WBC, fever curve - Periop antibiotics - none post OR unless clinical status changes - no pending cultures HEME: #Coagulopathy iso large volume blood loss #ABLA - hemorrhagic shock - S/p 3 L EBL and large volume pRBC, FFP, and platelets - monitor CBCs, PT-INR, and fibrinogen overnight - No toradol, no DVT ppx at this time >SCDs ACCESS: PIV: x2 Lashaun: Radial CVL: none Fry: Yes NGT: Yes Drains: KELSEY Epidural DISPO: SICU Malignant neoplasm metastatic to both lungs 02/2022 Hypertension 02/27/2021 Rectal cancer 04/21/2020 Assessment & Plan (04/23/2020 8:07 AM EDT): 64 yo woman with Crohn's disease diagnosed in 1980 which has involved the small and large intestine and resulted in multiple abscesses of the anus and buttocks. She was on 6-MP for many years but developed skin cancers and therefore transitioned to Stelara last year. Developed rectal adenocarcinoma in 2019, and scheduled for pelvic exenteration on 04/21/20 with general surgery, Commuter Train Operator surgery, and plastic surgery. She presents to the ICU for hemodynamic management, now stable for transfer to floor. Plan: Neuro: #Pain - Continue thoracic epidural bupivacaine 0.1% 10 ml/hr + dPCA - Continues to have pain in lower back with turns/movement. - Appreciate APS recommendations - Continue lidocaine patch in lower back - IV tylenol ATC # Cancer pain - Home oxycodone held Resp: TG, extubated in OR Breathing comfortably on room air CV: # Pelvic exenteration MAP goal >65 GI: # Pelvic exenteration with new ostomy creation - Strict NPO - NGT # Crohn's disease - Previously on Stelara SQ (ustekinumab) but this was discontinued in November with onset of chemotherapy. 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 CAPECITABINE WITH XRT - 5 DAY PER WEEK SCHEDULE* Plan Start Date:11/09/2024 Plan Provider:Saniya Tan MD Linked Problems Malignant neoplasm of rectum Treatment Medications Current Day (Day 1 , Cycle 1 - Planned for 11/09/2024) Next Day (Day 8, Cycle 1 - Planned for 11/16/2024) capecitabine (XELODA) capecitabine (XELO DA) tablet 1,300 mg capecitabine (XELODA) tablet 1,300 mg Past Treatment and Therapy Plans TREATMENT PLAN Plan Name Start Date Discontinue Date Treatment Medications Discontinue Reason Plan Provider Cycles IRINOTECAN/FLUO ROURACIL/LEUCOV MICHELLE-FOLFIRI SCHEDULE 10/31/20 23 10/19/2024 fluorouraciL (ADRUCIL)fluor ouracil (ADRUCIL) CADD pump infusion (total dose < 5000 mg) (100 mL)fluorouraci l (ADRUCIL) CADD pump infusion (total dose > 5000 mg, infusion time > 24 hours) (336 mL)irinotecan (CAMPTOSAR) IVPB a. Therapy Complete Saniya Tan MD 13 of 13 cycles started OXALIPLATIN/FLU OROURACIL 1200 MG/M2/LEUCOVORI N 0 10/22/2023 fluorouraciL (ADRUCIL)fluor ouracil (ADRUCIL) CADD pump infusion (total dose < 5000 mg) (100 mL)oxaliplatin (ELOXATIN) IVPB b. Progression Saniya Tan MD 6 of 6 cycles started CAPECITABINE WITH XRT - 5 DAY PER WEEK SCHEDULE 09/20/20 19 12/27/2019 capecitabine (XELODA) a. Therapy Complete Saniya Tan MD Treatment not started
--- OUTSIDE RECORDS SUMMARY | 2025-09-08 18:08 | XMS_ITS | Encounter Summary ---
Author Organization [facility] Address [address] [place] [address] Phone Care Team Providers Care Environmental Science Technician Name Role Phone Frankie Padron MD Primary Care Provider Saniya Tan MD Unavailable Domenic Goldsmith MD, PhD Unavailable [phone] Mary Sanon MD Unavailable Davina Peraza RN Unavailable [email or web address] Encounter Details Date Type Department Care Team (Late st Contact Info) Description 12/24/2024 Procedure Pass [facility] PERIOPERATIVE DEPT [address] [place] [address] Social History Tobacco Use Types Packs/Day Years Used Date Smoking Tobacco: Former Cigarettes 1 45 0 02/11/1976 - 05/21/2020 Smokeless Tobacco: Never Alcohol Use Standard Drinks/Week Comments Yes 0 (1 standard drink = 0.6 oz pur e alcohol) Home Health Assessment: Transportation Answer Date Recorded [...] as food, clothing, or medical care? No 12/24/2024 In the past 12 months have y ou been in a relationship with a person who hurts, threatens, or tries to control you? No 12/24/2024 Are you denied basic needs s uch as food, clothing, or medical care? No 12/24/2024 In the past 12 months have y ou been in a relationship with a person who hurts, threatens, or tries to control you? No 12/24/2024 Comments No Sex and Gender Information Value Date Recorded Sex Assigned at Female 04/16/2020 12:26 PM EDT Legal Sex Female 9:39 AM EDT Gender Identity Female 04/16/2020 12:26 PM EDT Sexual Orientation Straight 04/16/2020 12 :26 PM EDT documented as of this encounter Plan of Treatment Upcoming Encounters Date Type Department Care Team (Latest Contact Info) Description 02/15/2025 Procedure Pass MRI, [facility] - [address], [address] [place] [address] 08/12/[address], [facility] - [address], [address] [place] [address] 08/12/[address], [facility] [place] [address] [facility], [address] [place] [address] 08/12/2025 Procedure Pass MRI, [facility] - [address], [address] [place] [address] 10/14/2025 1:00 PM EST Office Visit [facility] [address] [facility] 9th [place] [address] Bettina Braden MD [address] [place] [address] [email or web address] 10/19/2025 3:00 PM EST Infusion [facility] at [address] [address] Hany Leach MD 02/06/2026 10:30 AM EDT Blood Draw [facility] Lab [address] [address] Saniya Tan MD [address] [address] [email or web address]@[email or web address] 02/06/2026 11:[address], [facility] - [address], [address] [place] [address] Saniya Tan MD [address] [place] [address] [email or web address]@[email or web address] 02/06/2026 12:30 PM EDT Appointment MRI, [facility] - [address], [address] [place] [address] Saniya Tan MD [address] [place] [address] [email or web address]@[email or web address] 02/07/2026 9:30 AM EDT Appointment MRI, [facility] - [address], [address] [place] [address] Domenic Goldsmith MD, PhD [address] [address] [email or web address] 02/14/2026 11:00 AM EDT Office Visit [facility] [address] [facility], 7th Floor, [address] [place] [address] Saniya Tan MD 55 [facility] 7E [place] [address] [email or web address] 02/14/2026 11:00 AM EDT Office Visit [facility] 32 [facility], 7th Floor, [address] [place] [address] Roxana Ornelas MD 55 [facility] 3 [place] [address] CHIN@[email or web address] 02/21/2026 10:00 AM EDT Telemedicine - audio only [facility] General & Gastrointestinal Surgery 55 [facility], 4th Floor, [address] [place] [address] Janie Blackmon FNP 55 [facility] 460 [place] [phone] [email or web address] g documented as of this encounter Visit Diagnoses Not on filedocumented in this encounter Care Teams Environmental Science Technician Relationship Specialty Start Date End Date Frankie Padron MD [address] [place] [address] [place] [address] PCP - General Internal Medicine 07/16/19 Saniya Tan MD 55 [facility] 7E [place] [address] [email or web address] Primary Oncologist Medical Oncology 12/22/20 Domenic Goldsmith MD, PhD 55 [facility] 7B [place] [address] [email or web address] Surgical Oncology 01/11/21 Mary Sanon MD 55 [facility] 3 [place] [address] [email or web address] [email or web address] u Radiation Oncology 07/03/22 Davina Peraza, RN [address] [place] [address] [email or web address] Primary Infusion Nurse 11/20/23 documented as of this encounter Additional Source Comments The information contained in this document represents components of the legal health record. It is not the complete legal health record.[facility]
--- OUTSIDE RECORDS SUMMARY | 2025-09-08 18:08 | XMS_ITS | Encounter Summary ---
Author Organization [facility] Address [address] [place] [address] Phone Care Team Providers Care Kettle Operator Head Name Role Phone Frankie Padron MD Primary Care Provider Saniya Tan MD Unavailable Domenic Goldsmith MD, PhD Unavailable Mary Sanon MD Unavailable Davina Peraza RN Unavailable [email or web address] Encounter Details Date Type Department Care Team (Late st Contact Info) Description 09/23/2024 Procedure Pass MRI, [facility] - [address], [address] [place] [address] Social History Tobacco Use Types [...] Contact Info) Description 02/15/2025 Procedure Pass MRI, [facility] [place] [address] [facility], [address] [place] [address] 08/12/[address], [facility] [place] [address] [facility], [address] [place] [address] 08/12/[address], [facility] [place] [address] [facility], [address] [place] [address] 08/12/2025 Procedure Pass MRI, [facility] [place] [address] [facility], [address] [place] [address] 10/14/2025 1:00 PM EST Office Visit [facility] 165 [facility] 9th [place] [address] Bettina Braden MD [address] [place] [address] [email or web address] 10/19/2025 3:00 PM EST Infusion [facility] at [address] [place] [address] Hany Leach MD 02/06/2026 10:30 AM EDT Blood Draw [facility] Lab [address] [address] Saniya Tan MD [address] [address] DIALLO@[email or web address] 02/06/2026 11:[address], [facility] - [address], [address] [place] [address] Saniya Tan MD [address] [place] [address] DIALLO@[email or web address] 02/06/2026 12:30 PM EDT Appointment MRI, [facility] - [address], [address] [place] [address] Saniya Tan MD [address] [place] [address] DIALLO@[email or web address] 02/07/2026 9:30 AM EDT Appointment MRI, [facility] - [address], [address] [place] [address] Domenic Goldsmith MD, PhD [address] [address] [email or web address] 02/14/2026 11:00 AM EDT [facility] [address] [facility], 7th Floor, [address] [place] [address] Saniya Tan MD [address] [address] DIALLO@[email or web address] 02/14/2026 11:00 AM EDT Office Visit [facility] 32 [facility], 7th Floor, [address] [place] [address] Roxana Ornelas MD 55 [facility] 3 [place] [address] CHIN@[email or web address] 02/21/2026 10:00 AM EDT Telemedicine - audio only [facility] General & Gastrointestinal Surgery 55 [facility], 4th Floor, [address] [place] [address] Janie Blackmon FNP 55 [facility] 460 [place] [phone] [email or web address] g documented as of this encounter Visit Diagnoses Not on filedocumented in this encounter Care Teams Kettle Operator Head Relationship Specialty Start Date End Date Frankie Padron MD [address] [place] [address] [place] [address] PCP - General Internal Medicine 07/16/19 Saniya Tan MD 55 [facility] 7E [place] [address] DIALLO@[email or web address] Primary Oncologist Medical Oncology 12/22/20 Domenic Goldsmith MD, PhD 55 [facility] 7B [place] [address] [email or web address] Surgical Oncology 01/11/21 Mary Sanon MD 55 [facility] 3 [place] [address] [email or web address] [email or web address] Radiation Oncology 07/03/22 Davina Peraza, RN [address] [place] [address] [email or web address] Primary Infusion Nurse 11/20/23 documented as of this encounter Additional Source Comments The information contained in this document represents components of the legal health record. It is not the complete legal health record.[facility]
--- OUTSIDE RECORDS SUMMARY | 2025-09-08 18:08 | XMS_ITS | Encounter Summary ---
Author Organization [facility] Address [address] [place] [address] Phone Care Team Providers Care Certified Pesticide Applicator Name Role Phone Frankie Padron MD Primary Care Provider Saniya Tan MD Unavailable Domenic Goldsmith MD, PhD Unavailable Mary Sanon MD Unavailable [phone] Davina Peraza RN Unavailable [email or web address] Encounter Details Date Type Department Care Team (Late st Contact Info) Description 12/07/[address], [facility] - [address], [address] [place] [address] Social History Tobacco Use Types [...] as food, clothing, or medical care? No 10/20/2024 In the past 12 months have y ou been in a relationship with a person who hurts, threatens, or tries to control you? No 10/20/2024 Are you denied basic needs s uch as food, clothing, or medical care? No 10/20/2024 In the past 12 months have y ou been in a relationship with a person who hurts, threatens, or tries to control you? No 10/20/2024 Comments No Sex and Gender Information Value Date Recorded Sex Assigned at Female 04/16/2020 12:26 PM EDT Legal Sex Female 9:39 AM EDT Gender Identity Female 04/16/2020 12:26 PM EDT Sexual Orientation Straight 04/16/2020 12 :26 PM EDT documented as of this encounter Plan of Treatment Upcoming Encounters Date Type Department Care Team (Latest Contact Info) Description 02/15/2025 Procedure Pass MRI, [facility] [place] [address] [facility], [address] [place] [address] 08/12/[address], [facility] [place] [address] [facility], [address] [place] [address] 08/12/[address], [facility] [place] [address] [facility], [address] [place] [address] 08/12/2025 Procedure Pass MRI, [facility] [place] 52 [facility], [address] [place] [address] 10/14/2025 1:00 PM EST Office Visit [facility] [address] [facility] 9th [place] [address] Bettina Braden MD [address] [place] [address] MARTÍN@[email or web address] 10/19/2025 3:00 PM EST Infusion [facility] [place] 30 [place] [address] Hany Leach MD 02/06/2026 10:30 AM EDT Blood Draw [facility] Lab [address] [address] Saniya Tan MD [address] [address] DIALLO@[email or web address] 02/06/2026 11:[address], [facility] - [address], [address] [place] [address] Saniya Tan MD [address] [place] [address] DIALLO@[email or web address] 02/06/2026 12:30 PM EDT Appointment MRI, [facility] - [address], [address] [place] [address] Saniya Tan MD [address] [place] [address] DIALLO@[facility] 02/07/2026 9:30 AM EDT Appointment MRI, [facility] - [address], [address] [place] [address] Domenic Goldsmith MD, PhD [address] [address] [email or web address] 02/14/2026 11:00 AM EDT Office Visit [facility] [address] [facility], 7th Floor, [address] [place] [address] Saniya Tan MD [address] [address] DIALLO@[email or web address] [facility] hospital 02/14/2026 11:00 AM EDT Office Visit [facility] [address] [facility], 7th Floor, [address] [place] [address] Roxana Ornelas MD 55 [facility] 3 [place] [address] CHIN@[email or web address] 02/21/2026 10:00 AM EDT Telemedicine - audio only [facility] General & Gastrointestinal Surgery 55 [facility], 4th Floor, [address] [place] [address] Janie Blackmon FNP 55 [facility] 460 [place] [phone] [email or web address] g documented as of this encounter Visit Diagnoses Not on filedocumented in this encounter Care Teams Certified Pesticide Applicator Relationship Specialty Start Date End Date Frankie Padron MD [address] [place] [address] [place] [address] PCP - General Internal Medicine 07/16/19 Saniya Tan MD 55 [facility] 7E [place] [address] [email or web address] Primary Oncologist Medical Oncology 12/22/20 Domenic Goldsmith MD, PhD 55 [facility] 7B [place] [address] JIGAR@[email or web address] Surgical Oncology 01/11/21 Mary Sanon MD 55 [facility] 3 [place] [address] [email or web address] [email or web address] u Radiation Oncology 07/03/22 Davina Peraza, RN [address] [place] [address] [email or web address] Primary Infusion Nurse 11/20/23 documented as of this encounter Additional Source Comments The information contained in this document represents components of the legal health record. It is not the complete legal health record.[facility]
--- OUTSIDE RECORDS SUMMARY | 2025-09-08 18:08 | XMS_ITS | Encounter Summary ---
Author Organization [facility] Address [address] [place] [address] Phone Care Team Providers Care Solar Thermal Technician Name Role Phone Frankie Padron MD Primary Care Provider Saniya Tan MD Unavailable Domenci Goldsmith MD, PhD Unavailable [phone] Mary Sanon MD Unavailable [phone] Davina Peraza RN Unavailable [email or web address] Encounter Details Date Type Department Care Team (Late st Contact Info) Description 09/23/[address], [facility] - [address], [address] [place] [address] Social History Tobacco Use Types [...] Contact Info) Description 02/15/2025 Procedure Pass MRI, [facility] [place] [address] [facility], [address] [place] [address] 08/12/[address], [facility] [place] [address] [facility], [address] [place] [address] 08/12/[address], [facility] [place] [address] [facility], [address] [place] [address] 08/12/2025 Procedure Pass MRI, [facility] - [place] [address] [facility], [address] [place] [address] 10/14/2025 1:00 PM EST Office Visit [facility] 165 [facility] 9th [place] [address] Bettina Braden MD [address] [place] [address] [email or web address] 10/19/2025 3:00 PM EST Infusion [facility] [place] 30 [place] [address] Hany Leach MD 02/06/2026 10:30 AM EDT Blood Draw [facility] Lab [address] [address] Saniya Tan MD [address] [address] DIALLO@[email or web address] 02/06/2026 11:[address], [facility] - [address], [address] [place] [address] Saniya Tan MD [address] [place] [address] DIALLO@[facility] 02/06/2026 12:30 PM EDT Appointment MRI, [facility] - [address], [address] [place] [address] Saniya Tan MD [address] [place] [address] DIALLO@[facility] 02/07/2026 9:30 AM EDT Appointment MRI, [facility] - [address], [address] [place] [address] Domenic Goldsmith MD, PhD [address] [address] [email or web address] 02/14/2026 11:00 AM EDT [facility] [address] [facility], 7th Floor, [address] [place] [address] Saniya Tan MD [address] [address] DIALLO@[facility] 02/14/2026 11:00 AM EDT Office [facility] 32 [facility], 7th Floor, [address] [place] [address] Roxana Ornelas MD 55 [facility] 3 [place] [address] CHIN@[facility] 02/21/2026 10:00 AM EDT Telemedicine - audio only [facility] General & Gastrointestinal Surgery 55 [facility], 4th Floor, [address] [place] [address] Janie Blackmon FNP 55 [facility] 460 [place] [phone] [email or web address] g documented as of this encounter Visit Diagnoses Not on filedocumented in this encounter Care Teams Solar Thermal Technician Relationship Specialty Start Date End Date Frankie Padron MD [address] [place] [address] [place] [address] PCP - General Internal Medicine 07/16/19 Saniya Tan MD 55 [facility] 7E [place] [address] DIALLO@[email or web address] Primary Oncologist Medical Oncology 12/22/20 Domenic Goldsmith MD, PhD 55 [facility] 7B [place] [address] JIGAR@[email or web address] Surgical Oncology 01/11/21 Mary Sanon MD 55 [facility] 3 [place] [address] maria [email or web address] u Radiation Oncology 07/03/22 Davina Peraza, RN [address] [place] [address] [email or web address] Primary Infusion Nurse 11/20/23 documented as of this encounter Additional Source Comments The information contained in this document represents components of the legal health record. It is not the complete legal health record[facility]
--- OUTSIDE RECORDS SUMMARY | 2025-09-08 18:08 | XMS_ITS | Encounter Summary ---
Author Organization [facility] Address [address] [place] [address] Phone Care Team Providers Care Processing Manager Name Role Phone Frankie Padron MD Primary Care Provider Saniya Tan MD Unavailable Domenic Goldsmith MD, PhD Unavailable [phone] Mary Sanon MD Unavailable [phone] Davina Peraza RN Unavailable [email or web address] Encounter Details Date Type Department Care Team (Late st Contact Info) Description 12/07/[address], [facility] - [address], [address] [place] [address] Social History Tobacco Use Types [...] Contact Info) Description 02/15/2025 Procedure Pass MRI, [facility] [place] [address] [facility], [address] [place] [address] 08/12/[address], [facility] [place] [address] [facility], [address] [place] [address] 08/12/[address], [facility] [place] [address] [facility], [address] [place] [address] 08/12/2025 Procedure Pass MRI, [facility] [place] 52 [facility], [address] [place] [address] 10/14/2025 1:00 PM EST Office Visit [facility] [address] [facility] 9th [place] [address] Bettina Braden MD [address] [place] [address] [email or web address] 10/19/2025 3:00 PM EST Infusion [facility] [address] [place] [address] Hany Leach MD 02/06/2026 10:30 AM EDT Blood Draw [facility] Lab [address] [address] Saniya Tan MD [address] [address] [email or web address]@[email or web address] 02/06/2026 11:[address], [facility] - [address], [address] [place] [address] Saniya Tan MD [address] [place] [address] [email or web address]@[email or web address] 02/06/2026 12:30 PM EDT Appointment MRI, [facility] - [address], [address] [place] [address] Saniya Tan MD [address] [place] [address] DIALLO@[email or web address] 02/07/2026 9:30 AM EDT Appointment MRI, [facility] - [address], [address] [place] [address] Domenic Goldsmith MD, PhD [address] [address] [email or web address] 02/14/2026 11:00 AM EDT Office Visit [facility] [address], 7th [address], [address] [place] [address] Saniya Tan MD [address] [address] [email or web address] 02/14/2026 11:00 AM EDT Office Visit [facility] [address], 7th Floor, [address] [place] [address] Roxana Ornelas MD 55 [facility] 3 [place] [address] [email or web address] 02/21/2026 10:00 AM EDT Telemedicine - audio only [facility] General & Gastrointestinal Surgery 55 [facility], 4th Floor, [address] [place] [address] Janie Blackmon FNP 55 [facility] 460 [place] [phone] [email or web address] [email or web address] g documented as of this encounter Visit Diagnoses Not on filedocumented in this encounter Care Teams Processing Manager Relationship Specialty Start Date End Date Frankie Padron MD [address] [place] [address] [place] [address] PCP - General Internal Medicine 07/16/19 Saniya Tan MD 55 [facility] 7E [place] [address] [email or web address] Primary Oncologist Medical Oncology 12/22/20 Domenic Goldsmith MD, PhD 55 [facility] 7B [place] [address] [email or web address] Surgical Oncology 01/11/21 Mary Sanon MD 55 [facility] 3 [place] [address] [email or web address] Radiation Oncology 07/03/22 Davina Peraza, RN [address] [place] [address] [email or web address] Primary Infusion Nurse 11/20/23 documented as of this encounter Additional Source Comments The information contained in this document represents components of the legal health record. It is not the complete legal health record.[facility]
--- OUTSIDE RECORDS SUMMARY | 2025-09-08 18:08 | XMS_ITS | Encounter Summary ---
Author Organization [facility] Address [address] [place] [address] Phone Care Team Providers Care Senior Power Scheduler Name Role Phone Frankie Padron MD Primary Care Provider Saniya Tan MD Unavailable Domenic Goldsmith MD, PhD Unavailable [phone] Mary Sanon MD Unavailable [phone] Davina Peraza RN Unavailable [email or web address] Encounter Details Date Type Department Care Team (Late st Contact Info) Description 03/09/2024 Procedure Pass MRI, [facility] - [address], [address] [place] [address] Social History Tobacco Use Types Packs/Day Years Used Date Smoking Tobacco: Former Cigarettes 1 45 0 02/11/1976 - 05/21/2020 Smokeless Tobacco: Never Alcohol Use Standard Drinks/Week Comments Yes 0 (1 standard drink = 0.6 oz pur e alcohol) Education Answer Date Recorded Are you interested in more education? Not on kenton e 02/28/2023 Are you concerned about learning? Not on file 02/28/2023 No 02/28/2023 No 02/28/2023 Digital Access Answer Date Recorded No 04/01/2023 No 04/01/2023 Reliable internet access at home? Not on file 04/01/2023 Device with a working camera? Not on file Comments No Sex and Gender Information Value Date Recorded Sex Assigned at Female 04/16/2020 12:26 PM EDT Legal Sex Female 9:39 AM EDT Gender Identity Female 04/16/2020 12:26 PM EDT Sexual Orientation Straight 04/16/2020 12 :26 PM EDT documented as of this encounter Plan of Treatment Upcoming Encounters Date Type Department Care Team (Latest Contact Info) Description 02/15/2025 Procedure Pass MRI, [facility] - [address] [facility], [address] [place] [address] 08/12/[address], [facility] - [place] [address] [facility], [address] [place] [address] 08/12/[address], [facility] - [place] [address] [facility], [address] [place] [address] 08/12/2025 Procedure Pass MRI, [facility] - [address] [facility], [address] [place] [address] 10/14/2025 1:00 PM EST Office Visit [facility] [address] 9th [place] [address] Bettina Braden MD [address] [place] [address] MARTÍN@[email or web address] 10/19/2025 3:00 PM EST Infusion [facility] at [address] [address] Hany Leach MD 02/06/2026 10:30 AM EDT Blood Draw [facility] [place] [address] [place] [address] Saniya Tan MD [address] [place] [address] DIALLO@[facility] 02/06/2026 11:[address], [facility] - [address] [facility], [address] [place] [address] Saniya Tan MD [address] [place] [address] DIALLO@[facility] 02/06/2026 12:30 PM EDT Appointment MRI, [facility] [place] [address] [facility], [address] [place] [address] aSniya Tan MD 55 [facility] 7E [place] [address] DIALLO@[email or web address] 02/07/2026 9:30 AM EDT Appointment MRI, [facility] - [address], [address] [place] [address] Domenic Goldsmith MD, PhD [address] [address] [email or web address] 02/14/2026 11:00 AM EDT Office Visit [facility] [address] [facility], 7th Floor, [address] [place] [address] Saniya Tan MD 55 [facility] 7[address] [place] [address] DIALLO@[email or web address] 02/14/2026 11:00 AM EDT Office Visit [facility] 32 [facility], 7th Floor, [address] [place] [address] Roxana Ornelas MD 55 [facility] 3 [place] [address] CHIN@[email or web address] 02/21/2026 10:00 AM EDT Telemedicine - audio only [facility] General & Gastrointestinal Surgery 55 [facility], 4th Floor, [address] [place] [address] Janie Blackmon FNP 55 [facility] 460 [place] [address] [email or web address] g documented as of this encounter Visit Diagnoses Not on filedocumented in this encounter Care Teams Senior Power Scheduler Relationship Specialty Start Date End Date Frankie Padron MD [address] [place] [address] [place] [address] PCP - General Internal Medicine 07/16/19 Saniya Tan MD 55 [facility] [address] [place] [address] [email or web address] Primary Oncologist Medical Oncology 12/22/20 Domenic Goldsmith MD, PhD 55 [facility] 7B [place] [address] [email or web address] Surgical Oncology 01/11/21 Mary Sanon MD 55 [facility] 3 [place] [address] [email or web address] Radiation Oncology 07/03/22 Davina Peraza RN 55 [place] [address] [email or web address] Primary Infusion Nurse 11/20/23 documented as of this encounter Additional Source Comments The information contained in this document represents components of the legal health record. It is not the complete legal health record.[facility]
--- OUTSIDE RECORDS SUMMARY | 2025-09-08 18:08 | XMS_ITS | Encounter Summary ---
Author Organization [facility] Address [address] [facility] [address] [place] [address] Phone Care Team Providers Care Plastics Plater Name Role Phone Frankie Padron MD Primary Care Provider Saniya Tan MD Unavailable Domenic Goldsmith MD, PhD Unavailable [phone] Mary Sanon MD Unavailable [phone] Davina Peraza RN Unavailable [email or web address] Encounter Details Date Type Department Care Team (Late st Contact Info) Description 10/20/2024 Documentation [facility] [address] [place] [id number] Jennifer Hudson [address] [address] Social History Tobacco Use Types Packs/Day Years [...] Contact Info) Description 02/15/2025 Procedure Pass MRI, [facility] - [address], [address] [place] [address] 08/12/[address], [facility] - [address], [address] [place] [address] 08/12/[address], [facility] - [address], [address] [place] [address] 08/12/2025 Procedure Pass MRI, [facility] - [address], [facility] 140 [place] [address] 10/14/2025 1:00 PM EST Office Visit [facility] [address] [facility] 9th [place] [address] Bettina Braden MD [address] [place] [address] MARTÍN@[email or web address] 10/19/2025 3:00 PM EST Infusion [facility] 30 [place] [address] Hany Leach MD 02/06/2026 10:30 AM EDT Blood Draw [facility] Lab [address] [address] Saniya Tan MD [address] [address] DIALLO@[email or web address] 02/06/2026 11:[address], [facility] - [address], [address] [place] [address] Saniya Tan MD [address] [place] [address] DIALLO@[email or web address] 02/06/2026 12:30 PM EDT Appointment MRI, [facility] - [address], [address] [place] [address] Saniya Tan MD [address] [place] [address] DIALLO@[email or web address] 02/07/2026 9:30 AM EDT Appointment MRI, [facility] - [address], [address] [place] [address] Domenic Goldsmith MD, PhD [address] [address] JIGAR@[email or web address] 02/14/2026 11:00 AM EDT Office Visit [facility] [address] [facility], 7th Floor, [address] [place] [address] Saniya Tan MD [address] [place] [address], [place] [address] DIALLO@[email or web address] 02/14/2026 11:00 AM EDT Office Visit [facility] [address] [facility], 7th Floor, [address] [place] [address] Roxana Ornelas MD 55 [facility] 3 [place] [address] CHIN@[facility] 02/21/2026 10:00 AM EDT Telemedicine - audio only [facility] General & Gastrointestinal Surgery 55 [facility], 4th Floor, [address] [place] [address] Janie Blackmon FNP 55 [facility] 460 [place] [phone] [email or web address] g documented as of this encounter Visit Diagnoses Not on filedocumented in this encounter Care Teams Plastics Plater Relationship Specialty Start Date End Date Frankie Padron MD [address] [place] [address] [place] [address] PCP - General Internal Medicine 07/16/19 Saniya Tan MD 55 [facility] 7E [place] [address] [email or web address]@[email or web address] Primary Oncologist Medical Oncology 12/22/20 Domenic Goldsmith MD, PhD [address] [place] [address] [address] [place] [address] [email or web address] Surgical Oncology 01/11/21 Mary Sanon MD 55 [facility] 3 [place], [place] maria [email or web address] u Radiation Oncology 07/03/22 Davina Peraza RN [address] [place] [address] [email or web address] Primary Infusion Nurse 11/20/23 documented as of this encounter Additional Source Comments The information contained in this document represents components of the legal health record. It is not the complete legal health record.[facility]
--- OUTSIDE RECORDS SUMMARY | 2025-09-08 18:08 | XMS_ITS | Encounter Summary ---
Author Organization [facility] Address [address] [place] [address] Phone Care Team Providers Care Environmental Designer Name Role Phone Frankie Padron MD Primary Care Provider Saniya Tan MD Unavailable Domenic Goldsmith MD, PhD Unavailable [phone] Mary Sanon MD Unavailable Davina Peraza RN Unavailable [email or web address] Encounter Details Date Type Department Care Team (Late st Contact Info) Description 12/15/2024 Radiation Completion Encounter [facility] Dept of Radiation Oncology [address] [address] Ryan King MD [address] [place] [address] [email or web address] Social History Tobacco Use Types Packs/Day Years [...] Contact Info) Description 02/15/2025 Procedure Pass MRI, [facility] Imaging - [address], [address] [place] [address] 08/12/[address], [facility] - [address], [address] [place] [address] 08/12/[address], [facility] - [place] 52 [facility], [address] [place] [address] 08/12/2025 Procedure Pass MRI, [facility] - [address], [address] [place] [address] 10/14/2025 1:00 PM EST Office Visit [facility] 165 [facility] 9th [place] [address] Bettina Braden MD [address] [place] [address] MARTÍN@[facility] 10/19/2025 3:00 PM EST Infusion [facility] [place] 30 [place] [address] Hany Leach MD 02/06/2026 10:30 AM EDT Blood Draw [facility] [address] [address] Saniya Tan MD [address] [address] [email or web address]@[email or web address] 02/06/2026 11:[address], [facility] - [address], [address] [place] [address] Saniya Tan MD [address] [place] [address] DIALLO@[facility] 02/06/2026 12:30 PM EDT Appointment MRI, [facility] - [address], [address] [place] [address] Saniya Tan MD [address] [address] DIALLO@[facility] 02/07/2026 9:30 AM EDT Appointment MRI, [facility] - [address], [address] [place] [address] Domenic Goldsmith MD, PhD [address] [address] JIGAR@[facility] 02/14/2026 11:00 AM EDT [facility] [address] [facility], 7th Floor, [address] [place] [address] Saniya Tan MD 55 [facility] 7E [place] [address] DIALLO@[facility] 02/14/2026 11:00 AM EDT Office [facility] 32 [facility], 7th Floor, [address] [place] [address] Roxana Ornelas MD 55 [facility] 3 [place] [address] CHIN@[email or web address] 02/21/2026 10:00 AM EDT Telemedicine - audio only [facility] General & Gastrointestinal Surgery 55 [facility], 4th Floor, [address] [place] [address] Janie Blackmon FNP 55 [facility] 460 [place] [phone] [email or web address] g documented as of this encounter Visit Diagnoses Not on filedocumented in this encounter Care Teams Environmental Designer Relationship Specialty Start Date End Date Frankie Padron MD [address] [place] [address] [place] [address] PCP - General Internal Medicine 07/16/19 Saniya Tan MD [address] [place] [address] [address] [place] [address] [email or web address]@[email or web address] Primary Oncologist Medical Oncology 12/22/20 Domenic Goldsmith MD, PhD [address] [place] [address] 7[address] [place] [address] [email or web address] Surgical Oncology 01/11/21 Mary Sanon MD [address] [address] [email or web address] u Radiation Oncology 07/03/22 Davina Peraza RN 55 [place] [address] [email or web address] Primary Infusion Nurse 11/20/23 documented as of this encounter Additional Source Comments The information contained in this document represents components of the legal health record. It is not the complete legal health record.[facility]
--- OUTSIDE RECORDS SUMMARY | 2025-09-08 18:09 | XMS_ITS | Encounter Summary ---
Author Organization [facility] Address [address] [facility] [address] [place] [address] Phone Care Team Providers Care Visual Developer Name Role Phone Frankie Padron MD Primary Care Provider Saniya Tan MD Unavailable Domenic Goldsmith MD, PhD Unavailable [phone] Mary Sanon MD Unavailable [phone] Davina Peraza RN Unavailable [email or web address] Encounter Details Date Type Department Care Team (Late st Contact Info) Description 01/15/2024 Procedure Pass [facility], [place] 2 [address] [facility], 2nd [place] [address] Social History Tobacco Use Types Packs/Day Years Used Date Smoking Tobacco: Former Cigarettes 1 45 0 02/11/1976 - 05/21/2020 Smokeless Tobacco: Never Alcohol Use Standard Drinks/Week Comments Not Currently 0 (1 standard drink = 0.6 oz pur e alcohol) rare 2 drinks/ year Education Answer Date Recorded Are you interested [...] [facility] General Imaging - [place] [address] [facility], [address] [place] [address] 08/12/[address], [facility] General Imaging - [place] [address] [facility], [address] [place] [address] 08/12/[address], [facility] General Imaging - [place] [address] [facility], [address] [place] [address] 08/12/2025 Procedure Pass MRI, [facility] - [address] [facility], [address] [place] [address] 10/14/2025 1:00 PM EST Office Visit [facility] [address] [facility] 9th [place] [address] Bettina Braden MD 55 [facility] 4 [place] [address] [email or web address]@[email or web address] 10/19/2025 3:00 PM EST Infusion [facility] at [address] [address] Hany, Hany, 02/06/2026 10:30 AM EDT Blood Draw [facility] [place] [address] [place] [address] Saniya Tan MD 55 [facility] 7E [place] [address] DIALLO@[facility] 02/06/2026 11:[address], [facility] - [address] [facility], [address] [place] [address] Saniya Tan MD 55 [facility] [address]E [place] [address] DIALLO@[facility] 02/06/2026 12:30 PM EDT Appointment MRI, [facility] General Imaging - [address], [address] [place] [address] Saniya Tan MD 55 [facility] [address]E [place] [address] DIALLO@[facility] 02/07/2026 9:30 AM EDT Appointment MRI, [facility] General Imaging - [address], [address] [place] [address] Domenic Goldsmith MD, PhD 55 [facility] [address]B [place] [address] [email or web address] 02/14/2026 11:00 AM EDT Office Visit [facility] [address] [facility], 7th Floor, [address] [place] [address] Saniya Tan MD 55 [facility] [address] [place] [address] DIALLO@[facility] 02/14/2026 11:00 AM EDT Office Visit [facility] [address] [facility], 7th Floor, [address] [place] [address] Roxana Ornelas MD 55 [facility] 3 [place] [address] CHIN@[email or web address] 02/21/2026 10:00 AM EDT Telemedicine - audio only [facility] & Gastrointestinal Surgery [address] [facility], 4th Floor, [address] [place] [address] Janie Blackmon FNP 55 [facility] 460 [place] [address] [email or web address] g documented as of this encounter Visit Diagnoses Not on filedocumented in this encounter Care Teams Visual Developer Relationship Specialty Start Date End Date Frankie Padron MD [address] [place] [address] [place] [address] PCP - General Internal Medicine 07/16/19 Saniya Tan MD 55 [facility]A [address] [place] [address] [email or web address] Primary Oncologist Medical Oncology 12/22/20 Domenic Goldsmith MD, PhD 55 [facility] [address] [place] [address] [email or web address] Surgical Oncology 01/11/21 Mary Sanon MD 55 [facility] MAY 3 [place] [address] [email or web address] Radiation Oncology 07/03/22 Davina Peraza RN 55 [place] [address] [email or web address] Primary Infusion Nurse 11/20/23 documented as of this encounter Additional Source Comments The information contained in this document represents components of the legal health record. It is not the complete legal health record.[facility]
--- OUTSIDE RECORDS SUMMARY | 2025-09-08 18:09 | XMS_ITS | Encounter Summary ---
Author Organization [facility] Address [address] [facility] [address] [place] [address] Phone Care Team Providers Care Coding Quality Analyst Name Role Phone Frankie Padron MD Primary Care Provider Saniya Tna MD Unavailable Domenic Goldsmith MD, PhD Unavailable [phone] Robert Lomax MD Unavailable Mary Sanon MD Unavailable [phone] Marcy Garvey RN Unavailable [email or web address] Davina Peraza RN Unavailable [email or web address] Davina Peraza RN Unavailable [email or web address] Encounter Details Date Type Department Care Team (Late st Contact Info) Description 07/15/2023 Procedure Pass MRI, [facility] - [address], [address] [place] [address] Social History Tobacco Use Types Packs/Day Years [...] Contact Info) Description 02/15/2025 Procedure Pass MRI, [facility] - [address], [address] [place] [address] 08/12/[address], [facility] - [address] [facility], [address] [place] [address] 08/12/[address], [facility] - [address], [address] [place] [address] 08/12/2025 Procedure Pass MRI, [facility] - [address] [facility], [address] [place] [address] 10/14/2025 1:00 PM EST Office Visit [facility] [address] 9th [place] [address] Bettina Braden MD 55 [facility] 4 [place] [address] MARTÍN@[email or web address] 10/19/2025 3:00 PM EST Infusion [facility] at [place] [place] [address] Hany Leach MD 02/06/2026 10:30 AM EDT Blood Draw [facility] [place] [address] [facility] [place] [address] Saniya Tan MD 55 [facility] YA [address]E [place] [address] DIALLO@[facility] 02/06/2026 11:[address], [facility] - [address], [address] [place] [address] Saniya Tan MD 55 [facility] 7E [place] [address] [email or web address]@[facility] 02/06/2026 12:30 PM EDT Appointment MRI, [facility] - [address], [address] [place] [address] Saniya Tan MD 55 [facility] 7E [place] [address] [email or web address]@[facility] 02/07/2026 9:30 AM EDT Appointment MRI, [facility] - [address], [address] [place] [address] Domenic Goldsmith MD, PhD 55 [facility] 7B [place] [address] [email or web address] 02/14/2026 11:00 AM EDT Office Visit [facility] [address] [facility], 7th Floor, [address] [place] [address] Saniya Tan MD 55 [facility] 7E [place] [address] DIALLO@[facility] 02/14/2026 11:00 AM EDT Office Visit [facility] [address] [facility], 7th Floor, [address] [place] [address] Roxana Ornelas MD 55 [facility] 3 [place] [address] CHIN@[facility] 02/21/2026 10:00 AM EDT Telemedicine - audio only [facility] General & Gastrointestinal Surgery 55 [facility], 4th Floor, [address] [place] [address] Janie Blackmon FNP 55 [facility] 460 [place] [id number] [email or web address] g documented as of this encounter Visit Diagnoses Not on filedocumented in this encounter Care Teams Coding Quality Analyst Relationship Specialty Start Date End Date Frankie Padron MD [address] [place] [address] [place] [address] PCP - General Internal Medicine 07/16/19 Saniya Tan MD 55 [facility] 7E [place] [address] [email or web address] Primary Oncologist Medical Oncology 12/22/20 Domenic Goldsmith MD, PhD [facility] [address] [place] [address] JIGAR@[facility] Surgical Oncology 01/11/21 Robert Lomax MD 55 [facility] 7B [place] [address] [email or web address]@[email or web address] Cardiothoracic Surgery 07/03/22 08/18/23 Mary Sanon MD 55 [facility] 3 [place] [address] maria [email or web address] Radiation Oncology 07/03/22 Macry Garvey RN 55 [facility] MAY 3 [place] [address] [email or web address] Primary Infusion Nurse 10/23/23 11/19/23 Davina Peraza RN Associate Infusion Nurse 10/29/23 11/19/23 Davina Peraza, RACHEL [address] [place] [address] [email or web address] Primary Infusion Nurse 11/20/23 documented as of this encounter Additional Source Comments The information contained in this document represents components of the legal health record. It is not the complete legal health record.[facility]
--- OUTSIDE RECORDS SUMMARY | 2025-09-08 18:09 | XMS_ITS | Encounter Summary ---
Author Organization [facility] Address [address] [place] [address] Phone Care Team Providers Care Senior Pastor Name Role Phone Frankie Padron MD Primary Care Provider Saniya Tan MD Unavailable Domenic Goldsmith MD, PhD Unavailable [phone] Mary Sanon MD Unavailable Davina Peraza RN Unavailable [email or web address] Encounter Details Date Type Department Care Team (Late st Contact Info) Description 02/20/2024 Procedure Pass [facility] PERIOPER[facility]IVE DEPT 55 [place] [address] Social History Tobacco Use Types Packs/Day Years [...] Contact Info) Description 02/15/2025 Procedure Pass MRI, [facility] Imaging - [address] [facility], [address] [place] [address] 08/12/[address], [facility] General Imaging - [place] [address] [facility], [address] [place] [address] 08/12/[address], [facility] General Imaging - [place] [address] [facility], [address] [place] [address] 08/12/2025 Procedure Pass MRI, [facility] Imaging - [address] [facility], [address] [place] [address] 10/14/2025 1:00 PM EST Office Visit [facility] [address] 9th [place] [address] Bettina Braden MD [address] [place] [address] MARTÍN@[facility] 10/19/2025 3:00 PM EST Infusion [facility] Cancer Center at [address] [address] Hany Leach MD 02/06/2026 10:30 AM EDT Blood Draw [facility] [place] [address] [place] [address] Saniya Tan MD [address] [place] [address] DIALLO@[facility] 02/06/2026 11:[address], [facility] General Imaging - [address] [facility], [address] [place] [address] Saniya Tan MD [address] [place] [address] DIALLO@[facility] 02/06/2026 12:30 PM EDT Appointment MRI, [facility] Imaging - [place] [address] [facility], [address] [place] [address] Saniya Tan MD 55 [facility] 7E [place] [address] DIALLO@[facility] 02/07/2026 9:30 AM EDT Appointment MRI, [facility] Imaging - [address], [address] [place] [address] Domenic Goldsmith MD, PhD [address] [address] MQJUNIOR@[email or web address] 02/14/2026 11:00 AM EDT Office Visit [facility] 32 [facility], 7th Floor, [address] [place] [address] Saniya Tan MD 55 [facility] 7E [place] [address] DIALLO@[facility] 02/14/2026 11:00 AM EDT Office Visit [facility] 32 [facility], 7th Floor, [address] [place] [address] Roxana Ornelas MD 55 [facility] [place] [facility] 3 [place] [address] CHIN@[email or web address] 02/21/2026 10:00 AM EDT Telemedicine - audio only [facility] General & Gastrointestinal Surgery 55 [facility], 4th Floor, [address] [place] [address] Janie Blackmon FNP 55 [facility] 460 [place] [address] marismary [email or web address] g documented as of this encounter Visit Diagnoses Not on filedocumented in this encounter Care Teams Senior Pastor Relationship Specialty Start Date End Date Frankie Padron MD [address] [place] [address] [place] [address] PCP - General Internal Medicine 07/16/19 Saniya Tan MD 55 [facility] [address] [place] [address] [email or web address]@[email or web address] Primary Oncologist Medical Oncology 12/22/20 Domenic Goldsmith MD, PhD 55 [facility] 7B [place] [address] JIGAR@[facility] Surgical Oncology 01/11/21 Mary Sanon MD 55 [facility] MAY 3 [place] [address] [email or web address] Radiation Oncology 07/03/22 Davina Peraza RN 55 [place] [address] [email or web address] Primary Infusion Nurse 11/20/23 documented as of this encounter Additional Source Comments The information contained in this document represents components of the legal health record. It is not the complete legal health record.[facility]
--- OUTSIDE RECORDS SUMMARY | 2025-09-08 18:09 | XMS_ITS | Encounter Summary ---
Author Organization [facility] Address [address] [place] [address] Phone Care Team Providers Care Salt Plant Operator Name Role Phone Frankie Padron MD Primary Care Provider Saniya Tan MD Unavailable Domenic Goldsmith MD, PhD Unavailable [phone] Mary Sanon MD Unavailable [phone] Davina Peraza RN Unavailable [email or web address] Encounter Details Date Type Department Care Team (Late st Contact Info) Description 03/26/2024 Procedure Pass [facility] 55 [place] [address] Social History Tobacco Use Types Packs/Day Years [...] Contact Info) Description 02/15/2025 Procedure Pass MRI, [facility] General Imaging - [address] [facility], [address] [place] [address] 08/12/[address], [facility] General Imaging - [place] [address] [facility], [address] [place] [address] 08/12/[address], [facility] General Imaging - [place] [address] [facility], [address] [place] [address] 08/12/2025 Procedure Pass MRI, [facility] Imaging - [address] [facility], [address] [place] [address] 10/14/2025 1:00 PM EST Office Visit [facility] [address] 9th [place] [address] Bettina Braden MD [address] [place] [address] MARTÍN@[facility] 10/19/2025 3:00 PM EST Infusion [facility] Cancer Center at [address] [address] Hany Leach MD 02/06/2026 10:30 AM EDT Blood Draw [facility] [place] [address] [place] [address] Saniya Tan MD [address] [place] [address] DIALLO@[facility] 02/06/2026 11:[address], [facility] General Imaging - [address] [facility], [address] [place] [address] Saniya Tan MD [address] [place] [address] DIALLO@[facility] 02/06/2026 12:30 PM EDT Appointment MRI, [facility] Imaging - [place] 52 [facility], [address] [place] [address] Saniya Tan MD [address] [address] DIALLO@[facility] 02/07/2026 9:30 AM EDT Appointment MRI, [facility] Imaging - [address], [address] [place] [address] Domenic Goldsmith MD, PhD [address] [address] JIGAR@[facility] 02/14/2026 11:00 AM EDT Office Visit [facility] 32 [facility], 7th Floor, [address] [place] [address] Saniya Tan MD [address] [address] DIALLO@[facility] 02/14/2026 11:00 AM EDT Office Visit [facility] 32 [facility], 7th Floor, [address] [place] [address] Roxana Ornelas MD 55 [facility] 3 [place] [address] CHIN@[email or web address] 02/21/2026 10:00 AM EDT Telemedicine - audio only [facility] & Gastrointestinal Surgery 55 [facility], 4th Floor, [address] [place] [address] Janie Blackmon FNP 55 [facility] 460 [place] [address] [email or web address] g documented as of this encounter Visit Diagnoses Not on filedocumented in this encounter Care Teams Salt Plant Operator Relationship Specialty Start Date End Date Frankie Padron MD [address] [place] [address] [place] [address] PCP - General Internal Medicine 07/16/19 Saniya Tan MD [address] [facility] [address] [place] [address] DIALLO@[email or web address] Primary Oncologist Medical Oncology 12/22/20 Domenic Goldsmith MD, PhD [address] [facility] [address] [place] [address] JIGAR@[email or web address] Surgical Oncology 01/11/21 Mary Sanon MD 55 [facility] MAY 3 [place] [address] maria [email or web address] u Radiation Oncology 07/03/22 Davina Peraza RN 55 [place] [address] [email or web address] Primary Infusion Nurse 11/20/23 documented as of this encounter Additional Source Comments The information contained in this document represents components of the legal health record. It is not the complete legal health record.[facility]
--- OUTSIDE RECORDS SUMMARY | 2025-09-08 18:09 | XMS_ITS | Clinical Summary ---
Author Organization [facility] Address [address] [facility] [address] [place] [phone] Phone Care Team Providers Care Speech Therapist Technician Name Role Phone Frankie Padron MD Primary Care Provider Saniya Tan MD Unavailable Domenic Goldsmith MD, PhD Unavailable [phone] Mary Sanon MD Unavailable [phone] Davina Peraza RN Unavailable [email or web address] Allergies Active Allergy Reactions Criticality Noted Date Comments Adhesive Other (See Comments) Medium 04/19/2020 Skin breakdown after 4-5 days - pt okay with adhesives for short term. Infliximab Swelling High 07/23/2019 Joint pain and stifness Adhesive Tape-Silicones 10/02/2021 OK for IV placement x24 hours Medications amLODIPine (NORVASC) 5 MG tablet Take 5 mg by mouth every morning. 3 Active diclofenac sodium (VOLTAREN) 50 MG EC tablet Take 1 tablet (50 mg total) by mouth 2 (two) times a day as needed (Flank Pain). 10 tablet 4 Active Additional Information Patient not taking.Reported on 06/24/2025 prochlorperazin e (COMPAZINE) 10 MG tablet Take 1 tablet (10 mg total) by mouth every 6 (six) hours as needed. 30 tablet 1 4 Active Additional Information Patient not taking.Reported on 06/24/2025 OXYGEN-AIR DELIVERY SYSTEMS MISC 1-4 Liter O2 - CONTINUOUS (route: Oxygen) 4 Active oxyBUTYnin (DITROPAN) 5 MG tablet Take 1 tablet (5 mg total) by mouth 3 (three) times a day as needed (stent pain). 21 tablet 5 5 Active tamsulosin (FLOMAX) 0.4 mg Cap Take 1 capsule (0.4 mg total) by mouth daily as needed (stent pain). 90 capsule 3 5 Active trospium (SANCTURA) 20 mg tablet Take 1 tablet (20 mg total) by mouth 2 (two) times a day. 60 tablet 11 5 Active Active Problems Patient Care Coordination No te Formatting of this note migh t be different from the original. Pre-Release Checklist Guidance Document This is a guide to help you find the information needed to complete the pre- release checklist. If changes are made to the plan, please edit the dates below as needed. The staff nurse icu resource team needs to review this information each time the checklist is used. Date of Consent: 11/07/23 Treatment Initiation Note (If Applicable) 11/07/23 Off Label Note (If Applicable) N/A Date of C1D1 Height and Weight: 11/07/23 Most recent documentation of treatment plan (i.e. Dose Modifications): 07/20/24 12/27/19 [phone]. 12/28 Emailed Rossi Richardson: [facility] said the PA for Davina Monroy for Albina ROBLEST was denied. 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 Malignant neoplasm of rectum 08/26/2019 Encounters Date Type Department Care Team Description 08/19/2025 Telephone [facility] [address] 9 [place] [address] Ratna Cunha RN 08/12/2025 11:00 AM EDT Office Visit [facility] [address], 7th [address], [address] [place] [address] Roxana Ornelas MD Malignant neoplasm of rectum (Primary Dx) 08/12/2025 11:00 AM EDT Office Visit [facility] [address], 7th [address], [address] [place] [address] Saniya Tan MD Rectal cancer (Primary Dx) 08/06/2025 2:44 PM EDT - 08/07/2025 3:03 PM EDT Hospital Encounter [facility] Emergency [facility] [address] [place] [address] Deng Castaneda MD Reisner, Andrew T, MD Discharge Disposition: Home or Self Care 08/06/2025 Telephone [facility] [address] [place] [address] Maddison Diaz, COURT COMMISSIONER 08/05/2025 10:28 AM EDT - 08/05/2025 11:59 PM EDT Hospital Encounter MRI, [facility] - [address], [address] [place] [address] Saniya Tan MD Discharge Disposition: Home or Self Care 08/05/2025 10:28 AM EDT - 08/05/2025 11:59 PM EDT Hospital Encounter CT, 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); OAB (overactive bladder) 06/24/2025 9:44 AM EDT Anesthesia Event [facility] [address] [place] [phone] Bubba Galaviz MD [facility] Yarelis Gómez RN 06/24/2025 9:07 AM EDT - 06/24/2025 10:29 AM EDT Surgery [facility] [address] [place] [phone] Emigdio Hays MD CYSTOSCOPY, stent exchange 06/24/2025 6:47 AM EDT - 06/24/2025 11:18 AM EDT Hospital Encounter [facility] [address] [place] [phone] Emigdio Hays MD Discharge Disposition: Home or Self Care 06/24/2025 Procedure Pass [facility] [address] [place] [address] 06/16/2025 9:15 AM EDT Pre-Admission Testing [facility] Pre-Procedure Evaluation Department Please See Appointment Details [place]OGER Raymundo [phone] Emigdio Hays MD 05/24/2025 Procedure Pass MRI, [facility] [address] [facility], [address] [place] [address] 05/24/[address], [facility] [address] [facility], [address] [place] [address] 05/24/[address], [facility] [address] [facility], [address] [place] [address] from Last 3 Months Immunizations Immunization Administration Dates Next Due Influenza High-Dose Quadriva lent Preservative Free IM 08/07/2022 Influenza Quadrivalent Prese rvative Free IM 09/12/2020 Pneumococcal conjugate PCV13 04/21/2020( Deferred: No Longer Needed - unable to obtain consent from patient) Family History Medical History Relation Comments Colon cancer Father Heart disease Father Crohn's disease Neg Hx Ulcerative colitis Neg Hx Relation Status Comments Father Social History Tobacco Use Types Packs/Day Years Used Date Smoking Tobacco: Former Cigarettes 1 45 0 02/11/1976 - 05/21/2020 Smokeless Tobacco: Never Tobacco Cessation:Counseling Given: Not Answered Alcohol Use Standard Drinks/Week Comments Yes 0 [...] on file 02/28/2023 No 02/28/2023 No 02/28/2023 Food Answer Date Recorded Within the past 6 months we worried whether our food would run out before we got money to buy more. Never True 08/06/2025 Within the past 6 months the food we bought just didn't last and we didn't have enough money to get more. Never True Residential Stability Answer Date Recor ded What is your housing situation today? I have scarlet walden 08/06/2025 How many times have you move d in the past 12 months? Zero (I did not move) 08/06/2025 Paying for Meds Answer Date Recorded Do you have trouble paying for medicines? No 08/06/2025 Paying Utility Bills Answer Date Record ed Do you have trouble paying your heating or elect ricity bill? No 08/06/2025 Transportation Answer Date Recorded Has the lack of transportati on kept you from medical appointments or from getting medications? No 08/06/2025 Digital Access Answer Date Recorded No 08/06/2025 Yes 08/06/2025 Do you have reliable internet access at home? Ye s 08/06/2025 Do you have a device (e.g., phone, tablet, computer) with a working camera? Yes 08/06/2025 Intimate Partner Violence Answer Date R ecorded Are you denied basic needs s uch as food, clothing, or medical care? No 08/06/2025 In the past 12 months have y ou been in a relationship with a person who hurts, threatens, or tries to control you? No 08/06/2025 Are you denied basic needs s uch as food, clothing, or medical care? No 08/06/2025 In the past 12 months have y ou been in a relationship with a person who hurts, threatens, or tries to control you? No 08/06/2025 Comments No Sex and Gender Information Value Date Recorded Sex Assigned at Female 04/16/2020 12:26 PM EDT Legal Sex Female 9:39 AM EDT Gender Identity Female 04/16/2020 12:26 PM EDT Sexual Orientation Straight 04/16/2020 12 :26 PM EDT Last Filed Vital Signs Vital Sign Reading Time Taken Comments Blood Pressure 123/70 08/12/2025 11:11 AM EDT Pulse 76 08/12/2025 11:11 AM EDT Temperature 36.3 C (97.3 F) 08/12/2025 11:11 AM EDT Respiratory Rate 16 08/12/2025 11:11 AM EDT Oxygen Saturation 95% 08/12/2025 11:11 AM EDT Inhaled Oxygen Concentration - - Weight 54.6 kg (120 lb 6.4 oz) 08/12/2025 11:11 AM EDT Height 157.5 cm (5' 2 ) 06/24/2025 7:11 AM EDT Body Mass Index 22.02 06/24/2025 7:11 AM EDT Plan of Treatment Upcoming Encounters Date Type Department Care Team (Latest Contact Info) Description 02/15/2025 Procedure Pass MRI, [facility] - [address] [facility], [address] [place] [address] 08/12/[address] [facility] - [address] [facility], [address] [place] [address] 08/12/[address], [facility] - [address] [facility], [address] [place] [address] 08/12/2025 Procedure Pass MRI, [facility] [address] [facility], [address] [place] [address] 10/14/2025 1:00 PM EST Office Visit [facility] [address] 9th [place] [address] Bettina Braden MD [address] [place] [address] 4 [place] [address] [email or web address] 10/19/2025 3:00 PM EST Infusion [facility] at [address] [address] Hany Leach MD 02/06/2026 10:30 AM EDT Blood Draw [facility] [address] [place] [address] Saniya Tan MD [address] [place] [address] [address] [place] [address] [email or web address] 02/06/2026 11:[address], [facility] - [address] [facility], [address] [place] [address] Saniya Tan MD [address] [facility] [address] [place] [address] [email or web address] 02/06/2026 12:30 PM EDT Appointment MRI, [facility] - [address], [address] [place] [address] Saniya Tan MD [address] [facility] [address] [place] [address] [email or web address] 02/07/2026 9:30 AM EDT Appointment MRI, [facility] - [address], [address] [place] [address] Domenic Goldsmith MD, PhD [address] [address] [email or web address] 02/14/2026 11:00 AM EDT Office Visit [facility] [address], 7th Floor, [address] [place] [address] Saniya Tan MD [address] [place] [address] [address] [place] [address] [email or web address] 02/14/2026 11:00 AM EDT Office Visit [facility] [address], 7th Floor, [address] [place] [address] Roxana Ornelas MD [address] [facility] 3 [place] [address] [email or web address] 02/21/2026 10:00 AM EDT Telemedicine - audio only [facility] [address] [facility], 4th Floor, [address] [place] [address] Janie Blackmon FNP [address] [phone] .or g Health Maintenance Due Date Last Done Comments Adult Td,Tdap Booster 1955 DEPRESSION SCREENING 1967 HEPATITIS C SCREENING 1973 PNEUMOCOCCAL VACCINES (50+ years) (1 of 2 - PCV) 1974 ZOSTER VACCINES (1 of 2) 1974 MAMMOGRAM 1995 COLOGUARD 02/02/2000 FIT TEST 02/02/2000 FOBT 02/02/2000 SIGMOIDOSCOPY 02/02/2000 VIRTUAL COLONOSCOPY 02/02/2000 RSV VACCINE (1 - Risk 50-74 years 1-dose series) 2005 OSTEOPOROSIS SCREENING INITI AL (ONE-TIME) 02/02/2020 LIPID PANEL 11/15/2021 11/15/2016 INFLUENZA VACCINE (#1) 2025 2, 09/12/2020, 09/12/2020 COVID-19 VACCINE (3 - 2024-2 6 season) 2025 03/08/2021, 02/08/2021 BLOOD PRESSURE 02/10/2026 08/12/2025 COLONOSCOPY 02/12/2031 02/12/2021 COLORECTAL CANCER SCREENING 02/12/2031 HEPATITIS A VACCINES Aged Out No long er eligible based on patient's age to complete this topic HIB VACCINES Aged Out No longer eligi ble based on patient's age to complete this topic MENINGOCOCCAL VACCINES (ACWY) Aged Out No longer eligible based on patient's age to complete this topic MENINGOCOCCAL VACCINES (B) Aged Out N o longer eligible based on patient's age to complete this topic Medical Devices Implanted Type Area Tree Trimmer Helper Device Identifier Shelf Expiration Date Model / Serial / Lot Mesh Synthetic 30cmxabdominal Non Absorbable Square Polypropylene Bx/3ea - [id number] Implanted:Qty: 1 on 04/21/2020 by Mark Palacios MD at [facility] STANDARD JNJ [employer]ON / DIVISION OF J 03/02/2023 [id number] / / [id number] Catheter Drainage 10.2fr 25cm .038in Multipurpose Single Lumen Ultrathane Hydrophilic Coated Radiopaque Firm Mac Loc Loop Locking Lf - [id number] Implanted:Qty: 1 on 08/06/2022 by Kaz Joshi MD at [facility] Left: Chest [employer] 03/14/2025 [id number] / / [id number] Description:Left chest tube Port Dignity 6.6fr Infusion Mini Attachable Silicone Filled Suture Hole Chronoflex Catheter - [id number] Implanted:Qty: 1 on 10/30/2023 at [facility] [employer] 05/02/2028 [id number] / / [id number] Stent Ureteral [id number] Firm Tria - [id number] Implanted:Qty: 1 on 06/24/2025 by Emigdio Hays MD at [facility] Right: Urethra [employer] 02/21/2028 [id number] 20 / N/A / [id number] Explanted Type Area Tree Trimmer Helper Device Identifier Shelf Expiration Date Model / Serial / Lot Stent Urological 7fr 24cm Double Pigtail Taper Tip Threaded Hydroplus Coated Percuflex Radiopaque Y - [id number] Implanted:Qty: 1 on 01/26/2021 by Kelly Pérez MD, MS at [facility] Explanted:2020 (Quantity not on file) Ureteral Stent Right: Ureter [employer] 09/21/2023 [id number] 720 / / [id number] Stent Urological 7fr 24cm Double Pigtail Taper Tip Threaded Hydroplus Coated Percuflex Radiopaque Y - [id number] Implanted:Qty: 1 on 07/06/2021 by Kelly Pérez MD, MS at [facility] Explanted:Qty: 1 on 10/10/2021 by Kelly Pérez MD, MS at [facility] Ureteral Stent Right: Ureter [employer] 04/26/2024 [id number] 720 / / [id number] Stent Urological 7fr 24cm Double Pigtail Taper Tip Threaded Hydroplus Coated Percuflex Radiopaque Y - [id number] Implanted:Qty: 1 on 10/10/2021 by Kelly Pérez MD, MS at [facility] Explanted:Qty: 1 on 02/25/2022 at [facility] Ureteral Stent Right: Ureter [employer] 08/22/2024 [id number] 720 / / [id number] Stent Urological 7fr 24cm Double Pigtail Taper Tip Threaded Hydroplus Coated Percuflex Radiopaque Y - [id number] Implanted:Qty: 1 on 02/25/2022 at [facility] Explanted:Qty: 1 on 06/24/2022 by Kelly Pérez MD, MS at [facility] Ureteral Stent Right: Ureter [employer] 10/21/2024 [id number] 720 / [id number] / [id number] Stent Urological 7fr 24cm Double Pigtail Taper Tip Threaded Hydroplus Coated Percuflex Radiopaque Y - [id number] Implanted:Qty: 1 on 06/24/2022 by Kelly Pérez MD, MS at [facility] Explanted:Qty: 1 on 02/17/2023 at [facility] Ureteral Stent Right: Ureter [employer] 01/02/2025 [id number] 720 / NA / [id number] Stent Urological 7fr 24cm Double Pigtail Taper Tip Threaded Hydroplus Coated Percuflex Radiopaque Y - [id number] Implanted:Qty: 1 on 10/09/2022 by Kelly Pérez MD, MS at [facility] Explanted:Qty: 1 on 02/17/2023 at [facility] Ureteral Stent Right: Ureter [employer] 06/05/2025 [id number] 720 / / [id number] Stent Urological 7fr 24cm Double Pigtail Taper Tip Threaded Hydroplus Coated Percuflex Radiopaque Y - [id number] Implanted:Qty: 1 on 05/28/2023 by Kelly Pérez MD, MS at [facility] Explanted:Qty: 1 on 09/17/2023 by Kelly Pérez MD, MS at [facility] Ureteral Stent Right: Ureter [employer] 10/13/2025 175-272 / / [id number] Stent Percuflex 7fr 26cm Urological Double Pigtail Taper Tip Threaded Hydroplus Coated Radiopaque - [id number] Implanted:Qty: 1 on 02/17/2023 by Kelly Pérez MD, MS at [facility] Explanted:Qty: 1 on 12/24/2024 at [facility] Ureteral Stent Right: Ureter [employer] 12/05/2025 [id number] / / [id number] Stent Urological 7fr 24cm Double Pigtail Taper Tip Threaded Hydroplus Coated Percuflex Radiopaque Y - [id number] Implanted:Qty: 1 on 09/17/2023 by Kelly Pérez MD, MS at [facility] Explanted:Qty: 1 on 12/24/2024 at [facility] Ureteral Stent Right: Ureter [employer] 05/23/2026 175-272 / [id number] 720 / [id number] Stent Urological 7fr 24cm Double Pigtail Taper Tip Threaded Hydroplus Coated Percuflex Radiopaque Y - [id number] Implanted:Qty: 1 on 03/26/2024 by Emigdio Hays MD at [facility] Explanted:Qty: 1 on 12/24/2024 at [facility] Ureteral Stent Right: Ureter [employer] 04/22/2026 175-272 / / [id number] Stent Urological 7fr 24cm Double Pigtail Taper Tip Threaded Hydroplus Coated Percuflex Radiopaque Y - [id number] Implanted:Qty: 1 on 07/26/2024 by Emigdio Hays MD at [facility] Explanted:Qty: 1 on 12/24/2024 at [facility] Ureteral Stent Right: Ureter [employer] [id number] 01/07/2027 175-272 / / [id number] Port Dignity 6.6fr Infusion Mini Attachable Silicone Filled Suture Hole Chronoflex Catheter - [id number] Implanted:Qty: 1 on 12/24/2019 by Cami Maynard CNP at [facility] Explanted:Qty: 1 on 10/01/2021 Right: Chest Wall [employer] 07/03/2024 [id number] / / [id number] Stent Ureteral [id number] Firm Tria - [id number] Implanted:Qty: 1 on 12/24/2024 by Emigdio Hays MD at [facility] Explanted:Qty: 1 on 06/24/2025 by Emigdio Hays MD at [facility] Right: Ureter [employer] 07/26/2027 [id number] 220 / / [id number] Procedures Procedure Name Priority Date/Time Associated Diagnosis Comments CARCINOEMBRYONIC ANTIGEN (CEA) Routine 08/12/2025 10:26 AM EDT Rectal cancer HC BLOOD TYPING SEROLOGIC ABO STAT 08/06/2025 3:44 PM EDT PT-INR STAT 08/06/2025 3:36 PM EDT LIPASE STAT 08/06/2025 3:35 PM EDT MAGNESIUM STAT 08/06/2025 3:35 PM EDT LFTS (HEPATIC PANEL) STAT 08/06/2025 3:35 PM EDT BASIC METABOLIC PANEL (BMP) STAT 08/06/2025 3:35 PM EDT CBC AND DIFFERENTIAL STAT 08/06/2025 3:[address] ABDOMEN/PELVIS WITH CONTRAST Routine 08/05/2025 12:40 PM EDT Rectal cancer CT CHEST WITH CONTRAST Routine 12:40 PM EDT Rectal cancer MRI PELVIS (RECTAL) WITH AND WITHOUT CONTRAST Routine 08/05/2025 11:44 AM EDT Rectal cancer FL FLUORO GUIDANCE - NO CHARGE Routine 06/24/2025 10:40 AM EDT MI CYSTOURETHROSCOPY 06/24/2025 9:49 AM EDT Ureteral obstruction, right ENDOSCOPY, COLON 02/12/2021 10:2 9 AM EDT from Last 3 Months or Most Recently Relevant to Health Maintenance Results * (ABNORMAL) Carcinoembryonic antigen (CEA) (08/12/2025 10:26 AM EDT) CEA 67.1(H) 0.0 - 3.3 ng/mL [facility] 08/12/2025 10:2 6 AM EDT 08/12/2025 10:37 AM EDT Saniya Tan MD LAB BLOOD BKR ORDERABLES Final R esult Performing Organization Address City/[facility]/ZIP Co de Phone Number [address] [address] * Type and Screen (ABO,Rh,Antibody Screen) (08/06/2025 3:44 PM EDT) Expiration Date of Sample 08/09/2025 11:59 PM [facility] ABO A 08/06/2025 4:37 PM EDT [facility] Rh Positive 08/06/2025 4:37 PM EDT [facility] Resulting Agency [facility] Antibody Screen Negative 08/06/2025 4:48 PM EDT [facility] Blood 08/06/2025 3:44 PM EDT 08/06/2025 3:47 PM EDT Analy Bey PA-C LAB BLOOD BANK TEST ORDERAB LES Final Result Performing Organization Address [facility] Co de Phone Number [address] [address] * PT-INR (08/06/2025 3:36 PM EDT) PT 11.6 10.0 - 13.0 sec [facility] INR 1.0 0.9 - 1.1 [facility] Blood 08/06/2025 3:36 PM EDT 08/06/2025 3:56 PM EDT Analy Bey PA-C LAB BLOOD BKR ORDERABLES Fi nal Result Performing Organization Address City/[facility]/ZIP Co de Phone Number [address] [address] * LFTs (hepatic panel) (08/06/2025 3:35 PM EDT) ALBUMIN 4.1 3.3 - 5.0 g/dL [facility] TOTAL BILIRUBIN 0.3 0.0 - 1.0 mg/dL [facility] DIRECT BILIRUBIN 0.1 0.0 - 0.3 mg/dL [facility] ALKALINE PHOSPHATASE 82 30 - 100 U/L [facility] AST 14 9 - 32 U/L [facility] ALT 12 7 - 33 U/L [facility] TOTAL PROTEIN 7.7 6.0 - 8.3 g/dL [facility] GLOBULIN 3.6 1.9 - 4.1 g/dL [facility] Blood 08/06/2025 3:35 PM EDT 08/06/2025 3:56 PM EDT us Analy Bey PA-C LAB BLOOD BKR ORDERABLES Fi nal Result [address] [address] * (ABNORMAL) CBC and differential (08/06/2025 3:35 PM EDT) WBC 6.99 4.00 - 11.00 K/uL [facility] RBC 4.34 4.00 - 5.20 M/uL [facility] HGB 11.5(L) 12.0 - 16.0 g/dL [facility] HCT 36.9 36.0 - 46.0 % [facility] PLT 336 150 - 450 K/uL [facility] MCV 85.0 80.0 - 100.0 fL [facility] MCH 26.5(L) 27.0 - 31.0 pg [facility] MCHC 31.2(L) 32.0 - 36.0 g/dL [facility] RDW 15.1(H) 11.5 - 14.5 % [facility] MPV 9.0 8.4 - 12.0 fL [facility] NRBC 0.00 0.00 /100 WBCs [facility] ABSOLUTE NRBC 0.00 0.00 K/uL [facility] DIFF METHOD Auto [facility] NEUTS 72.3 48.0 - 76.0 % [facility] LYMPHS 17.6(L) 18.0 - 41.0 % [facility] MONOS 7.7 4.0 - 11.0 % [facility] EOS 1.7 0.0 - 5.0 % [facility] BASOS 0.3 0.0 - 1.5 % [facility] % IMMATURE GRANS 0.4 0.0 - 0.9 % [facility] ABSOLUTE NEUTS 5.05 1.92 - 7.60 K/uL [facility] ABSOLUTE LYMPHS 1.23 0.72 - 4.10 K/uL [facility] ABSOLUTE MONOS 0.54 0.16 - 1.10 K/uL [facility] ABSOLUTE EOS 0.12 0.00 - 0.50 K/uL [facility] ABSOLUTE BASOS 0.02 0.00 - 0.15 K/uL [facility] ABS IMMATURE GRANS 0.03 0.00 - 0.09 K/uL [facility] Blood 08/06/2025 3:35 PM EDT 08/06/2025 3:57 PM EDT Analy Davina Sotero PA-C LAB BLOOD BKR ORDERABLES Fi nal Result [address] [address] * (ABNORMAL) Magnesium (08/06/2025 3:35 PM EDT) MAGNESIUM 1.4(L) 1.7 - 2.4 mg/dL [facility] Blood 08/06/2025 3:35 PM EDT 08/06/2025 3:56 PM EDT Analy Davina Sotero PA-C LAB BLOOD BKR ORDERABLES Fi nal Result [address] [address] * Lipase (08/06/2025 3:35 PM EDT) LIPASE 43 13 - 60 U/L [facility] Blood 08/06/2025 3:35 PM EDT 08/06/2025 3:56 PM EDT Analy Ghosh Sotero STEWART-Mike LAB BLOOD BKR ORDERABLES Fi nal Result Performing Organization Address [facility] Co de Phone Number [address] [address] * (ABNORMAL) Basic metabolic panel (08/06/2025 3:35 PM EDT) SODIUM 137 135 - 145 mmol/L [facility] POTASSIUM 3.9 3.4 - 5.0 mmol/L [facility] CHLORIDE 102 98 - 108 mmol/L [facility] CO2 19(L) 23 - 32 mmol/L [facility] BUN 19 8 - 25 mg/dL [facility] CREATININE 1.14(H) 0.50 - 1.00 mg/dL [facility] GLUCOSE 116(H) 70 - 110 mg/dL [facility] CALCIUM 9.6 8.5 - 10.5 mg/dL [facility] EGFR 52(L) >59 mL/min/1. 73m2 [facility] Comment:Estimated glomerular filtration rate calculated using the CKD-EPI refit equation. ANION GAP 16 3 - 17 mmol/L [facility] Blood 08/06/2025 3:35 PM EDT 08/06/2025 3:56 PM EDT Analy Ghosh [employer] [facility] BLOOD BKR ORDERABLES Fi nal Result Performing Organization Address [facility] Co de Phone Number [address] [address] * CT CHEST WITH CONTRAST (08/05/2025 12:40 PM EDT) Anatomical Region Laterality Modality Chest Computed Tomogra phy 08/10/2025 9:23 AM EDT Impressions 08/10/2025 9:52 AM EDT 1. Since , progressively increased size of the right upper lobe postradiation mass, possibly indolent local recurrence. 2. Unchanged lingular ablation bed report and left apical post radiation scarring. 3. Normalization of right hilar and mediastinal lymph nodes to the size on , likely transiently reactive on . RECOMMENDATIONS: Consider PET/CT versus chest CT in 3-6 months or per clinical protocol to evaluate the slowly increased right upper lobe treatment bed. Narrative 08/10/2025 9:[address] CHEST WITH CONTRAST Referring clinician's provided indication for this examination in [facility]: * Rectal cancer, monitor, stage II/III/IV TECHNIQUE: Multidetector CT of the chest was performed with intravenous contrast using tailored dose modulation techniques. COMPARISON: FINDINGS: Devices/tubes/lines: Accessed right anterior chest wall port catheter tip in the right atrium. Lungs/airways: * Patent central airways with adherent secretions. Moderate centrilobular emphysema. * Spiculated and elongated right upper lobe postradiation mass now shows a trend of progressively increased short axis diameter, 11 mm on , 13 mm on , and now 15 mm. * Unchanged lingular ablation bed, 13 x 7 mm (6:194) back to . * Unchanged posterior left apical subpleural opacity, 5 mm thick (6:49). * Unchanged 6 mm left lower lobe subpleural nodule (6:202) since at least . * No new nodules. Pleura: No pleural effusions or pneumothoraces. Mediastinum: Unchanged multinodular thyroid, poorly assessed by CT. Nonenlarged thoracic aorta. Pulmonary arterial dilatation to 32 mm. Borderline left atrial enlargement to 42 mm. Moderate coronary artery calcifications. Lymph nodes: Decreased now 6 mm right hilar node (6:137), transiently increased to 11 mm on . Other subcentimeter mediastinal lymph nodes are also decreased, for example 6 mm low right paratracheal (6:129) from 9 mm. No new or increased thoracic lymphadenopathy. Upper abdomen: Reported separately. Chest wall: No chest wall masses. Bones: No suspicious bone lesions. Bilateral healed fracture deformities. Procedure Note Mathieu Swann MD, PhD - 08/10/2025 CT CHEST WITH CONTRAST Referring clinician's provided indication for this examination in [facility]: *Rectal cancer, monitor, stage II/III/IV TECHNIQUE: Multidetector CT of the chest was performed with intravenouscontrast using tailored dose modulation techniques. COMPARISON: FINDINGS: Devices/tubes/lines: Accessed right anterior chest wall port catheter tipin the right atrium. Lungs/airways: * Patent central airways with adherent secretions. Moderate centrilobularemphysema. * Spiculated and elongated right upper lobe postradiation mass now showsa trend of progressively increased short axis diameter, 11 mm [id number], 13 mm on , and now 15 mm. * Unchanged lingular ablation bed, 13 x 7 mm (6:194) back [id number]. * Unchanged posterior left apical subpleural opacity, 5 mm thick(6:49). * Unchanged 6 mm left lower lobe subpleural nodule (6:202) since at [id number]. * No new nodules. Pleura: No pleural effusions or pneumothoraces. Mediastinum: Unchanged multinodular thyroid, poorly assessed by CT.Nonenlarged thoracic aorta. Pulmonary arterial dilatation to 32 mm.Borderline left atrial enlargement to 42 mm. Moderate coronary artery calcifications. Lymph nodes: Decreased now 6 mm right hilar node (6:137), transientlyincreased to 11 mm on . Other subcentimeter mediastinal lymphnodes are also decreased, for example 6 mm low right paratracheal (6:129)from 9 mm. No new or increased thoracic lymphadenopathy. Upper abdomen: Reported separately. Chest wall: No chest wall masses. Bones: No suspicious bone lesions. Bilateral healed fracturedeformities. IMPRESSION: 1. Since , progressively increased size of the right upperlobe postradiation mass, possibly indolent local recurrence. 2. Unchanged lingular ablation bed report and left apical post radiationscarring. 3. Normalization of right hilar and mediastinal lymph nodes to the sizeon , likely transiently reactive on . RECOMMENDATIONS: Consider PET/CT versus chest CT in 3-6 months or per clinical protocol toevaluate the slowly increased right upper lobe treatment bed. us Saniya Tan MD IM CT CHEST Final Result * CT ABDOMEN/PELVIS WITH CONTRAST (08/05/2025 12:40 PM EDT) Anatomical Region Laterality Modality Abdomen, Pelvis Computed Tomogra phy 08/06/2025 10:3 5 AM EDT Impressions 08/06/2025 10:52 AM EDT Since 05/16/2025, * New small bowel obstruction with transition point in the pelvis, likely due to adhesions. * Pelvic soft tissue lesions, better assessed on same day MRI. No new abdominal or pelvic metastasis. Findings were discussed with MD Emily on 08/06/2025 10:15 AM. Narrative 08/06/2025 10:[address] ABDOMEN/PELVIS WITH CONTRAST Referring clinician's provided indication for this examination in Epic: * Rectal cancer, monitor, stage II/III/IV TECHNIQUE: Multidetector-row CT of the abdomen and pelvis was performed after administration of intravenous contrast using tailored dose modulation techniques. Images were reconstructed in the axial, coronal, and sagittal planes. COMPARISON: CT ABDOMEN/PELVIS WITH CONTRAST FINDINGS: Lower chest: Reported separately Liver: Subcentimeter low-attenuation lesion in segment 2/4a, too small to characterize, unchanged. No suspicious focal lesions. Biliary: Noninflamed gallbladder. No biliary ductal dilatation. Spleen: No splenomegaly. No focal lesions. 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 No solid masses or main ductal dilatation. Adrenal glands: No nodules. Kidneys/ureters: Severe right renal atrophy is again noted, with a ureteric stent terminating in an interpolar calyx. 2 mm nonobstructing calculus in the right kidney. Left renal cysts including a 1.5 cm hemorrhagic or proteinaceous cyst in the upper pole (5: 202), unchanged. No left hydronephrosis. Bowel: Prior abdominoperineal resection with end colostomy. New small bowel distention up to 5.1 cm with abrupt transition in the pelvis (better seen on concurrent MRI) consistent with small bowel obstruction, likely due to adhesions. No enteric contrast noted beyond the area of transition. Noninflamed appendix. Peritoneum/retroperitoneum: No masses, free air, or fluid. Lymph nodes: No lymphadenopathy. Pelvic organs/bladder: Prior pelvic exenteration with prior hysterectomy, bilateral salpingo-oophorectomy with total vaginectomy and radical vulvectomy. Similar appearances and stranding of the presacral region. Vessels: No abdominal aortic aneurysm. Diffuse atherosclerotic calcifications of the aorta and its branch vessels. Bones/soft tissues: * Similar appearances of the right obturator internus partially calcified soft tissue lesion (5:568) and partially calcified hypodense lesion in the medial right gluteal musculature (5:502), better assessed on same day MRI. Unchanged fat necrosis at the subcutaneous tissues of the right medial gluteal region. * T12 vertebral body hemangioma. L5 and sacral postradiation change again noted. Unchanged peripherally sclerotic focus at the right ischial tuberosity. Unchanged chronic compression deformity at L1. No suspicious osseous lesions. Procedure Note Radha Peterson MD - 08/06/2025 CT ABDOMEN/PELVIS WITH CONTRAST Referring clinician's provided indication for this examination in Epic: *Rectal cancer, monitor, stage II/III/IV TECHNIQUE: Multidetector-row CT of the abdomen and pelvis was performedafter administration of intravenous contrast using tailored dosemodulation techniques. Images were reconstructed in the axial, coronal,and sagittal planes. COMPARISON: CT ABDOMEN/PELVIS WITH CONTRAST FINDINGS: Lower chest: Reported separately Liver: Subcentimeter low-attenuation lesion in segment 2/4a, too small tocharacterize, unchanged. No suspicious focal lesions. Biliary: Noninflamed gallbladder. No biliary ductal dilatation. Spleen: No splenomegaly. No focal lesions. 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 No solid masses or main ductaldilatation. Adrenal glands: No nodules. Kidneys/ureters: Severe right renal atrophy is again noted, with aureteric stent terminating in an interpolar calyx. 2 mm nonobstructingcalculus in the right kidney. Left renal cysts including a 1.5 cmhemorrhagic or proteinaceous cyst in the upper pole (5: 202), unchanged.No left hydronephrosis. Bowel: Prior abdominoperineal resection with end colostomy. New smallbowel distention up to 5.1 cm with abrupt transition in the pelvis (betterseen on concurrent MRI) consistent with small bowel obstruction, likelydue to adhesions. No enteric contrast noted beyond the area of transition.Noninflamed appendix. Peritoneum/retroperitoneum: No masses, free air, or fluid. Lymph nodes: No lymphadenopathy. Pelvic organs/bladder: Prior pelvic exenteration with prior hysterectomy,bilateral salpingo-oophorectomy with total vaginectomy and radicalvulvectomy. Similar appearances and stranding of the presacral region. Vessels: No abdominal aortic aneurysm. Diffuse atheroscleroticcalcifications of the aorta and its branch vessels. Bones/soft tissues: * Similar appearances of the right obturator internus partially calcifiedsoft tissue lesion (5:568) and partially calcified hypodense lesion in themedial right gluteal musculature (5:502), better assessed on same day MRI.Unchanged fat necrosis at the subcutaneous tissues of the right medialgluteal region. * T12 vertebral body hemangioma. L5 and sacral postradiation change againnoted. Unchanged peripherally sclerotic focus at the right ischialtuberosity. Unchanged chronic compression deformity at L1. No suspiciousosseous lesions. IMPRESSION: Since 05/16/2025, * New small bowel obstruction with transition point in the pelvis, likelydue to adhesions. * Pelvic soft tissue lesions, better assessed on same day MRI. No newabdominal or pelvic metastasis. Findings were discussed with MD Emily on 08/06/2025 10:15 AM. Saniya Tan MD IMG CT ABD/PELVIS Final Result * MRI PELVIS (RECTAL) WITH AND WITHOUT CONTRAST (08/05/2025 11:44 AM EDT) MGB IMG RIVET TESTER COMMENT SBO [facility] Anatomical Region Laterality Modality Pelvis Magnetic Resonan ce 08/06/2025 9:21 AM EDT Impressions 08/06/2025 10:35 AM EDT Since May 16, 2025, * New small bowel obstruction with transition point in the pelvis, likely due to adhesions. 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 No new or enlarging pelvic metastasis. Findings were discussed with MD Emily on 08/06/2025 10:15 AM. Narrative 08/06/2025 10:35 AM EDT MRI PELVIS (RECTAL) WITH AND WITHOUT CONTRAST Referring clinician's provided indication for this examination in Epic: * Rectal cancer, monitor, stage II/III/IV TECHNIQUE: Multiplanar MR imaging of the pelvis was performed using T1, T2, and diffusion weighted techniques. Postcontrast multiphase imaging was also performed after administration of an intravenous gadolinium agent. COMPARISON: MRI PELVIS (RECTAL) WITH AND WITHOUT CONTRAST FINDINGS: Bladder: Irregular trabeculated bladder as before, likely treatment related. Partially imaged right ureteral stent with distal coil in the urinary bladder. Unchanged distal ureteral thickening and enhancement. Bowel: Abdominoperineal resection and left lower quadrant colostomy. New small bowel distention up to 3.5 cm with abrupt transition to normal caliber in the pelvis (11:21-24) consistent with small bowel obstruction, likely due to adhesions. Other pelvic organs: Status post pelvic near-total exenteration with flap reconstruction. Peritoneum: Similar right greater than left presacral thickening and enhancement. Lymph nodes: No lymphadenopathy. Vessels: Patent pelvic vasculature. Bones/soft tissues: * Right obturator internus peripherally enhancing lesion measuring 3.0 x 1.8 x 2.7 cm (30:17; 21:22) unchanged in size from prior but with increased central nonenhancement/necrosis. * Unchanged size and appearance of 1.5 x 1.5 x 1.8 cm peripherally enhancing lesion along the medial right gluteus fortunato (30:31; 21:27). Unchanged 1.0 cm enhancing nodule inferiorly (30:25). * Increased central necrosis of a 1.4 cm enhancing presacral nodule (21:34; 30:34). * Unchanged enhancing presacral nodules up to 1.0 cm (21:30 and 36) * No new or enlarging lesion. * Unchanged rim enhancing fat necrosis in the right medial gluteal subcutaneous tissue (3:22) * A subcentimeter enhancing focus in the right ischial tuberosity (30:10) is unchanged since at least 07/23/2019 and likely benign. Procedure Note Radha Peterson MD - 08/06/2025 MRI PELVIS (RECTAL) WITH AND WITHOUT CONTRAST Referring clinician's provided indication for this examination in [facility]: *Rectal cancer, monitor, stage II/III/IV TECHNIQUE: Multiplanar MR imaging of the pelvis was performed using T1,T2, and diffusion weighted techniques. Postcontrast multiphase imaging wasalso performed after administration of an intravenous gadolinium agent. COMPARISON: MRI PELVIS (RECTAL) WITH AND WITHOUT CONTRAST FINDINGS: Bladder: Irregular trabeculated bladder as before, likely treatmentrelated. Partially imaged right ureteral stent with distal coil in theurinary bladder. Unchanged distal ureteral thickening and enhancement. Bowel: Abdominoperineal resection and left lower quadrant colostomy. Newsmall bowel distention up to 3.5 cm with abrupt transition to normalcaliber in the pelvis (11:21-24) consistent with small bowel obstruction,likely due to adhesions. Other pelvic organs: Status post pelvic near-total exenteration with flapreconstruction. Peritoneum: Similar right greater than left presacral thickening andenhancement. Lymph nodes: No lymphadenopathy. Vessels: Patent pelvic vasculature. Bones/soft tissues: * Right obturator internus peripherally enhancing lesion measuring 3.0 x1.8 x 2.7 cm (30:17; 21:22) unchanged in size from prior but withincreased central nonenhancement/necrosis. * Unchanged size and appearance of 1.5 x 1.5 x 1.8 cm peripherallyenhancing lesion along the medial right gluteus fortunato (30:31; 21:27).Unchanged 1.0 cm enhancing nodule inferiorly (30:25). * Increased central necrosis of a 1.4 cm enhancing presacral nodule(21:34; 30:34). * Unchanged enhancing presacral nodules up to 1.0 cm (21:30 and 36) * No new or enlarging lesion. * Unchanged rim enhancing fat necrosis in the right medial glutealsubcutaneous tissue (3:22) * A subcentimeter enhancing focus in the right ischial tuberosity (30:10)is unchanged since at least 07/23/2019 and likely benign. IMPRESSION: Since May 16, 2025, * New small bowel obstruction with transition point in the pelvis, likelydue to adhesions. 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 No new orenlarging pelvic metastasis. Findings were discussed with MD Emily on 08/06/2025 10:15 AM. Saniya Tan MD IMG MR PELVIS Final Result * FL Fluoroscopy Guidance - No Charge (06/24/2025 10:40 AM EDT) 06/24/2025 1:58 PM EDT Narrative [facility] - 06/24/2025 1:58 PM EDT Dose (mGy): 0.9411 Dose Area Product (DAP): 0.1774 Fluoro time (min): 00:07.3 Number of Spot Films: 7 Radimetrics Dose Report: CTDIvol: 0 mGy. DLP: 0 mGy-cm. Procedure Note Industrial Maintenance Repairer, Dictation - 06/24/2025 Dose (mGy): 0.9411 Dose Area Product (DAP): 0.1774 Fluoro time (min): 00:07.3 Number of Spot Films: 7 Radimetrics Dose Report: CTDIvol: 0 mGy. DLP: 0 mGy-cm. 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 Procedure: After obtaining informed consent, the endoscope was passed under direct vision. Throughout the procedure, the patient's blood pressure, pulse, and oxygen saturations were monitored continuously. The Colonoscope was introduced through the transverse colostomy and advanced to the the terminal ileum, with identification of the appendiceal orifice and IC valve. The colonoscopy was performed without difficulty. The patient tolerated the procedure well. The quality of the bowel preparation was excellent. Findings: The terminal ileum appeared normal. Biopsies were taken with a cold forceps for histology. Verification of patient identification for the specimen was done. The colon (entire examined portion) appeared normal. Biopsies were taken with a cold forceps for histology. Verification of patient identification for the specimen was done. A 3 mm polyp was found in the surgical stoma. The polyp was sessile. The polyp was removed with a piecemeal technique using a cold biopsy forceps. Resection and retrieval were complete. Verification of patient identification for the specimen was done. Impression: - The examined portion of the ileum was normal. Biopsied. - The entire examined colon is normal. Biopsied. - One 3 mm polyp at the surgical stoma, removed piecemeal using a cold biopsy forceps. Resected and retrieved. Recommendation: - Await pathology results. - Repeat colonoscopy in 3 years for surveillance. - Return to my office as previously scheduled. Attending Participation: I personally performed the entire procedure. I was personally present throughout the entire procedure. I was present from the first injection of medications for sedation and continuously for the administration and monitoring of sedation. The patient's sedation level was moderate. The patients post-sedation status at the end of the procedure was stable. Bettina Braden MD, [id number] 02/12/2021 11:10:25 AM Number of Addenda: 0 Note Initiated On: 02/12/2021 10:29 AM Frankie Padron MD GI PROCEDURE ORDERABLES Final Result from Last 3 Months or Most Recently Relevant to Health Maintenance Insurance MEDICARE PART A & B [employer] SUPPLEMENT MEDICARE PART A & B [employer] SUPPLEMENT MEDICARE PART A & B [employer] MEDEX SUPPLEMENT MEDICARE PART A & B [employer] MED[employer] SUPPLEMENT MEDICARE PART A & B [employer] MED[employer] SUPPLEMENT MEDICARE PART A & B [employer] MEDEX SUPPLEMENT MEDICARE PART A & B [employer] MEDEX SUPPLEMENT MEDICARE PART A & B [employer] MEDEX SUPPLEMENT MEDICARE PART A & B [employer] MEDEX SUPPLEMENT Advance Directives For more information, please contact: [phone] (9AM - 5PM Tanna/[facility], Friday-Friday) Documents on File Type Date Recorded 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 12/31/2019 * Full Code (Latest Code Status on File) Date Activated Date Inactivated Comments 05/27/2024 8:20 PM Question Answer Comments Code Status Confirmed With: Patient * Full Code Date Activated Date Inactivated Comments 05/27/2024 7:49 PM 05/27/2024 8:20 PM Question Answer Comments Code Status Confirmed With: Patient * Full Code Date Activated Date Inactivated Comments 08/06/2022 5:34 PM 05/27/2024 7:49 PM Question Answer Comments Code Status Confirmed With: Patient * Full Code (Presumed) Date Activated Date Inactivated Comments 04/21/2020 6:33 PM 08/06/2022 5:34 PM Care Teams Speech Therapist Technician Relationship Specialty Start Date End Date Frankie Padron MD [address] [place] [address] [place] [address] PCP - General Internal Medicine 07/16/19 Saniya Tan MD [address] [facility] [address] [place] [address] [email or web address] Primary Oncologist Medical Oncology 12/22/20 Domenic Goldsmith MD, PhD [address] [facility] [address] [place] [address] [email or web address] 01/11/21 Mary Sanon MD [address] [facility] [address] [facility] [address] [place] [address] [email or web address] [email or web address] Oncology 07/03/22 Davina Peraza RN [address] [place] [address] [email or web address] Primary Infusion Nurse 11/20/23 Additional Source Comments The information contained in this document represents components of the legal health record. It is not the complete legal health record.[facility]
--- OUTSIDE RECORDS SUMMARY | 2025-09-08 18:09 | XMS_ITS | Encounter Summary ---
Author Organization [facility] Address [address] [place] [address] Phone Care Team Providers Care Master Lay Out Specialist Name Role Phone Frankie Padron MD Primary Care Provider Saniya Tan MD Unavailable Domenic Goldsmith MD, PhD Unavailable [phone] Robert Lomax MD Unavailable Mary Sanon MD Unavailable [phone] Marcy Garvey RN Unavailable [email or web address] Davina Peraza RN Unavailable [email or web address] Davina Peraza RN Unavailable [email or web address] Encounter Details Date Type Department Care Team (Late st Contact Info) Description 11/03/[address], [facility] - [address], [address] [place] [address] Social History Tobacco Use Types Packs/Day Years Used Date Smoking Tobacco: Former Cigarettes 1 45 0 02/11/1976 - 05/21/2020 Smokeless Tobacco: Never Alcohol Use Standard Drinks/Week Comments Yes 0 (1 standard drink = 0.6 oz pur e alcohol) rare 2 drinks/ year Comments No Sex and Gender Information Value Date Recorded Sex Assigned at Female 04/16/2020 12:26 PM EDT Legal Sex Female 9:39 AM EDT Gender Identity Female 04/16/2020 12:26 PM EDT Sexual Orientation Straight 04/16/2020 12 :26 PM EDT documented as of this encounter Plan of Treatment Upcoming Encounters Date Type Department Care Team (Latest Contact Info) Description 02/15/2025 Procedure Pass MRI, [facility] - [place] [address] [facility], [address] [place] [address] 08/12/[address], [facility] - [address], [address] [place] [address] 08/12/[address], [facility] - [address] [facility], [address] [place] [address] 08/12/2025 Procedure Pass MRI, [facility] - [address] [facility], [address] [place] [address] 10/14/2025 1:00 PM EST Office Visit [facility] [address] [facility] 9th [place] [address] Bettina Braden MD [address] [place] [address] MARTÍN@[facility] 10/19/2025 3:00 PM EST Infusion [facility] at [address] [address] Hany Leach MD 02/06/2026 10:30 AM EDT Blood Draw [facility] Lab [address] [address] Saniya Tan MD [address] [place] [address] DIALLO@[facility] 02/06/2026 11:[address], [facility] - [address] [facility], [address] [place] [address] Saniya Tan MD [address] [place] [address] DIALLO@[facility] 02/06/2026 12:30 PM EDT Appointment MRI, [facility] - [place] 52 [facility], [address] [place] [address] Saniya Tan MD 55 [facility] 7E [place] [address] DIALLO@[facility] 02/07/2026 9:30 AM EDT Appointment MRI, [facility] [place] 52 [facility], [address] [place] [address] Domenic Goldsmith MD, PhD 55 [facility] 7B [place] [address] JIGAR@[facility] 02/14/2026 11:00 AM EDT Office [facility] [address] [facility], 7th Floor, [address] [place] [address] Saniya Tan MD [address] [place] [address] [address] [place] [address] DIALLO@[facility] 02/14/2026 11:00 AM EDT Office [facility] [address] [facility], 7th Floor, [address] [place] [address] Roxana Ornelas MD 55 [facility] 3 [place] [address] CHIN@[facility] 02/21/2026 10:00 AM EDT Telemedicine - audio only [facility] General & Gastrointestinal Surgery 55 [facility], 4th Floor, [address] [place] [address] Janie Blackmon FNP 55 [facility] 460 [place] [phone] [email or web address] g documented as of this encounter Visit Diagnoses Not on filedocumented in this encounter Care Teams Master Lay Out Specialist Relationship Specialty Start Date End Date Frankie Padron MD [address] [place] [address] [place] [address] PCP - General Internal Medicine 07/16/19 Saniya Tan MD 55 [facility] Y[address]E [place], [place] DIALLO@[email or web address] Primary Oncologist Medical Oncology 12/22/20 Domenic Goldsmith MD, PhD 55 [facility] [address] [place], [place] JIGAR@[facility] Surgical Oncology 01/11/21 Robert Lomax MD [facility] [address] [place] [address] MARCELA@[facility] Cardiothoracic Surgery 07/03/22 08/18/23 Mary Sanon MD 55 [facility] 3 [place] [address] maria [email or web address] Radiation Oncology 07/03/22 Marcy Garvey RN 55 [facility] 3 [place] [address] [email or web address] Primary Infusion Nurse 10/23/23 11/19/23 Davina Peraza RN Associate Infusion Nurse 10/29/23 11/19/23 Davina Peraza RN 55 [place] [address] [email or web address] Primary Infusion Nurse 11/20/23 documented as of this encounter Additional Source Comments The information contained in this document represents components of the legal health record. It is not the complete legal health record.[facility]
--- OUTSIDE RECORDS SUMMARY | 2025-09-08 18:09 | XMS_ITS | Encounter Summary ---
Author Organization [facility] Address [address] [place] [address] Phone Care Team Providers Care Brush Filler Hand Name Role Phone Frankie Padron MD Primary Care Provider Saniya Tan MD Unavailable Domenic Goldsmith MD, PhD Unavailable [phone] Mary Sanon MD Unavailable [phone] Davina Peraza RN Unavailable [email or web address] Encounter Details Date Type Department Care Team (Late st Contact Info) Description 02/23/2024 Procedure Pass [facility] [place] [place] PERIOPERATIVE DEPT 55 [place] [address] Social History Tobacco Use Types Packs/Day Years [...] Contact Info) Description 02/15/2025 Procedure Pass MRI, [facility] - [address] [facility], [address] [place] [address] 08/12/[address], [facility] - [place] [facility], [address] [place] [address] 08/12/[address], [facility] - [place] [address] [facility], [address] [place] [address] 08/12/2025 Procedure Pass MRI, [facility] - [address] [facility], [address] [place] [address] 10/14/2025 1:00 PM EST Office Visit [facility] [place] [place] [facility] [address] 9th [place] [address] Bettina Braden MD [address] [place] [address] MARTÍN@[facility] 10/19/2025 3:00 PM EST Infusion [facility] at [address] [address] Hany Leach MD 02/06/2026 10:30 AM EDT Blood Draw [facility] [place] [facility] [place] 52 [place] [address] Saniya Tan MD [address] [place] [address] DIALLO@[facility] 02/06/2026 11:[address], [facility] - [address] [facility], [address] [place] [address] Saniya Tan MD [address] [place] [address] DIALLO@[facility] 02/06/2026 12:30 PM EDT Appointment MRI, [facility] - [place] 52 [facility], [address] [place] [address] Saniya Tan MD 55 [facility] 7E [place] [address] DIALLO@[facility] 02/07/2026 9:30 AM EDT Appointment MRI, [facility] - [address], [address] [place] [address] Domenic Goldsmith MD, PhD [address] [address] [email or web address] 02/14/2026 11:00 AM EDT Office Visit [facility] 32 [facility], 7th Floor, [address] [place] [address] Saniya Tan MD 55 [facility] 7E [place] [address] DIALLO@[facility] 02/14/2026 11:00 AM EDT Office Visit [facility] 32 [facility], 7th Floor, [address] [place] [address] Roxana Ornelas MD 55 [facility] 3 [place] [address] CHIN@[email or web address] 02/21/2026 10:00 AM EDT Telemedicine - audio only [facility] [place] [place] General & Gastrointestinal Surgery 55 [facility], 4th Floor, [address] [place] [address] Janie Blackmon FNP 55 [facility] 460 [place] [address] [email or web address] g documented as of this encounter Visit Diagnoses Not on filedocumented in this encounter Care Teams Brush Filler Hand Relationship Specialty Start Date End Date Frankie Padron MD [address] [place] [address] [place] [address] PCP - General Internal Medicine 07/16/19 Saniya Tan MD [address] [facility] [address] [place] [address] DIALLO@[email or web address] Primary Oncologist Medical Oncology 12/22/20 Domenic Goldsmith MD, PhD 55 [facility] 7B [place] [address] JIGAR@[email or web address] Surgical Oncology 01/11/21 Mary Sanon MD [address] [facility] MAY 3 [place] [address] maria [email or web address] u Radiation Oncology 07/03/22 Davina Peraza RN 55 [place] [address] [email or web address] Primary Infusion Nurse 11/20/23 documented as of this encounter Additional Source Comments The information contained in this document represents components of the legal health record. It is not the complete legal health record.[facility]
--- OUTSIDE RECORDS SUMMARY | 2025-09-08 18:09 | XMS_ITS | Encounter Summary ---
Author Organization [facility] Address [address] [place] [address] Phone Care Team Providers Care Wearing Apparel Assembler Name Role Phone Frankie Padron MD Primary Care Provider Saniya Tan MD Unavailable Domenic Goldsmith MD, PhD Unavailable [phone] Robert Lomax MD Unavailable Mary Sanon MD Unavailable Marcy Garvey RN Unavailable [email or web address] Davina Peraza RN Unavailable [email or web address] Davina Peraza RN Unavailable [email or web address] Encounter Details Date Type Department Care Team (Late st Contact Info) Description 07/27/2021 Procedure Pass [facility] Ct Scan - [address] [address] Social History Tobacco Use Types Packs/Day Years [...] Contact Info) Description 02/15/2025 Procedure Pass MRI, [facility] - [place] [address] [facility], [address] [place] [address] 08/12/[address], [facility] - [address] [facility], [address] [place] [address] 08/12/[address], [facility] - [place] [address] [facility], [address] [place] [address] 08/12/2025 Procedure Pass MRI, [facility] - [address] [facility], [address] [place] [address] 10/14/2025 1:00 PM EST Office Visit [facility] 165 [facility] 9th [place] [address] Bettina Braden MD [address] [place] [address] MARTÍN@[facility] 10/19/2025 3:00 PM EST Infusion [facility] at [address] [address] Hany Leach MD 02/06/2026 10:30 AM EDT Blood Draw [facility] Lab [address] [address] Saniya Tan MD [address] [place] [address] DIALLO@[facility] 02/06/2026 11:[address], [facility] - [address] [facility], [address] [place] [address] Saniya Tan MD [address] [place] [address] DIALLO@[facility] 02/06/2026 12:30 PM EDT Appointment MRI, [facility] - [place] 52 [facility], [address] [place] [address] Saniya Tan MD 55 [facility] 7E [place] [address] DIALLO@[facility] 02/07/2026 9:30 AM EDT Appointment MRI, [facility] - [address], [address] [place] [address] Domenic Goldsmith MD, PhD 55 [facility] 7B [place] [address] JIGAR@[email or web address] 02/14/2026 11:00 AM EDT Office Visit [facility] 32 [facility], 7th Floor, [address] [place] [address] Saniya Tan MD [address] [place] [address] 7E [place] [address] DIALLO@[facility] 02/14/2026 11:00 AM EDT Office Visit [facility] 32 [facility], 7th Floor, [address] [place] [address] Roxana Ornelas MD [address] [place] [address] MAY 3 [place] [address] CHIN@[email or web address] 02/21/2026 10:00 AM EDT Telemedicine - audio only [facility] General & Gastrointestinal Surgery 55 [facility], 4th Floor, [address] [place] [address] Janie Blackmon FNP 55 [facility] 460 [place] [address] [email or web address] g documented as of this encounter Visit Diagnoses Not on filedocumented in this encounter Care Teams Wearing Apparel Assembler Relationship Specialty Start Date End Date Frankie Padron MD [address] [place] [address] [place] [address] PCP - General Internal Medicine 07/16/19 Saniya Tan MD 55 [facility] YA [address] [place], [place] DIALLO@[facility] Primary Oncologist Medical Oncology 12/22/20 Domenic Goldsmith MD, PhD [address] [address] [place], [place] JIGAR@[email or web address] Surgical Oncology 01/11/21 Robert Lomax MD 55 [facility] 7B [place] [address] MARCELA@[email or web address] Cardiothoracic Surgery 07/03/22 08/18/23 Mary Sanon MD 55 [facility] 3 [place] [address] maria [email or web address] Radiation Oncology 07/03/22 Marcy Garvey RN 55 [facility] 3 [place] [address] [email or web address] Primary Infusion Nurse 10/23/23 11/19/23 Davina Peraza RN Associate Infusion Nurse 10/29/23 11/19/23 Davina Peraza RN 55 [place] [address] [email or web address] Primary Infusion Nurse 11/20/23 documented as of this encounter Additional Source Comments The information contained in this document represents components of the legal health record. It is not the complete legal health record.[facility]
--- OUTSIDE RECORDS SUMMARY | 2025-09-08 18:09 | XMS_ITS | Encounter Summary ---
Author Organization [facility] Address [address] [facility] [address] [place] [address] Phone Care Team Providers Care Lap Cutter Name Role Phone Frankie Padron MD Primary Care Provider Saniya Tan MD Unavailable Domenic Goldsmith MD, PhD Unavailable Mary Sanon MD Unavailable [phone] Davina Peraza RN Unavailable [email or web address] Encounter Details Date Type Department Care Team (Late st Contact Info) Description 01/15/2024 Procedure Pass [facility] [place] [facility], [place] [address] [facility], 2nd [place] [address] Social History Tobacco Use Types Packs/Day Years [...] Contact Info) Description 02/15/2025 Procedure Pass MRI, [facility] - [place] 52 [facility], [address] [place] [address] 08/12/[address], [facility] - [place] 52 [facility] [address] [facility], [address] [place] [address] 08/12/[address], [facility] - [place] 52 [facility], [address] [place] [address] 08/12/2025 Procedure Pass MRI, [facility] - [address] [facility], [address] [place] [address] 10/14/2025 1:00 PM EST Office [place] [facility] [place] [place] [facility] 165 [facility] 9th [place] [address] Bettina Braden MD 55 [facility] 4 [place] [address] MARTÍN@[facility] 10/19/2025 3:00 PM EST Infusion [facility] at [address] [address] Hany, Hany, 02/06/2026 10:30 AM EDT Blood Draw [facility] [place] [address] [place] [address] Saniya Tan MD 55 [facility] 7E [place] [address] DIALLO@[facility] 02/06/2026 11:[address], [facility] - [address] [facility], [address] [place] [address] Saniya Tan MD 55 [facility] 7E [place] [address] DIALLO@[facility] 02/06/2026 12:30 PM EDT Appointment MRI, [facility] Imaging - [address], [address] [place] [address] Saniya Tan MD 55 [facility] 7E [place] [address] DIALLO@[facility] 02/07/2026 9:30 AM EDT Appointment MRI, [facility] General Imaging - [address], [address] [place] [address] Domenic Goldsmith MD, PhD 55 [facility] 7B [place] [address] [email or web address]@[facility] 02/14/2026 11:00 AM EDT Office Visit [facility] 32 [facility], 7th Floor, [address] [place] [address] Saniya Tan MD 55 [facility] 7E [place] [address] DIALLO@[facility] 02/14/2026 11:00 AM EDT Office Visit [facility] 32 [facility], 7th Floor, [address] [place] [address] Roxana Ornelas MD 55 [facility] 3 [place] [address] CHIN@[facility] 02/21/2026 10:00 AM EDT Telemedicine - audio only [facility] [place] General & Gastrointestinal Surgery 55 [facility], 4th Floor, [address] [place] [address] Janie Blackmon FNP 55 [facility] 460 [place] [address] [email or web address] g documented as of this encounter Visit Diagnoses Not on filedocumented in this encounter Care Teams Lap Cutter Relationship Specialty Start Date End Date Frankie Padron MD [address] [place] [address] [place] [address] PCP - General Internal Medicine 07/16/19 Saniya Tan MD 55 [facility] YA [address] [place] [address] DIALLO@[email or web address] Primary Oncologist Medical Oncology 12/22/20 Domenic Goldsmith MD, PhD 55 [facility] 7B [place] [address] [email or web address] Surgical Oncology 01/11/21 Mary Sanon MD 55 [facility] MAY 3 [place] [address] maria [email or web address] u Radiation Oncology 07/03/22 Davina Peraza RN 55 [place] [address] [email or web address] Primary Infusion Nurse 11/20/23 documented as of this encounter Additional Source Comments The information contained in this document represents components of the legal health record. It is not the complete legal health record.[facility]
--- OUTSIDE RECORDS SUMMARY | 2025-09-08 18:09 | XMS_ITS | Encounter Summary ---
Author Organization [facility] Address [address] [place] [address] Phone Care Team Providers Care Membership Sales Advisor Name Role Phone Frankie Padron MD Primary Care Provider Saniya Tan MD Unavailable Domenic Goldsmith MD, PhD Unavailable [phone] Robert Lomax MD Unavailable [phone] Mary Sanon MD Unavailable [phone] Marcy Garvey RN Unavailable [email or web address] Davina Peraza RN Unavailable [email or web address] Davina Peraza RN Unavailable [email or web address] Encounter Details Date Type Department Care Team (Late st Contact Info) Description 11/03/[address], [facility] - [address], [address] [place] [address] Social History Tobacco Use Types Packs/Day Years [...] Contact Info) Description 02/15/2025 Procedure Pass MRI, [facility] [place] [facility], [address] [place] [address] 08/12/[address], [facility] - [address], [address] [place] [address] 08/12/[address], [facility] - [address] [facility], [address] [place] [address] 08/12/2025 Procedure Pass MRI, [facility] - [address] [facility], [address] [place] [address] 10/14/2025 1:00 PM EST Office Visit [facility] 9th [place] [address] Bettina Braden MD [address] [place] [address] MARTÍN@[facility] 10/19/2025 3:00 PM EST Infusion [facility] at [address] [address] Hany Leach MD 02/06/2026 10:30 AM EDT Blood Draw [facility] [address] [address] Saniya Tan MD [address] [place] [address] DIALLO@[facility] 02/06/2026 11:[address], [facility] - [address] [facility], [address] [place] [address] Saniya Tan MD [address] [place] [address] DIALLO@[facility] 02/06/2026 12:30 PM EDT Appointment MRI, [facility] [place] 52 [facility], [address] [place] [address] Saniya Tan MD 55 [facility] 7E [place] [address] DIALLO@[facility] 02/07/2026 9:30 AM EDT Appointment MRI, [facility] [place] 52 [facility], [address] [place] [address] Domenic Goldsmith MD, PhD 55 [facility] 7B [place] [address] JIGAR@[email or web address] 02/14/2026 11:00 AM EDT Office Visit [facility] [address] [facility], 7th Floor, [address] [place] [address] Saniya Tan MD [address] [place] [address] [address] [place] [address] DIALLO@[facility] 02/14/2026 11:00 AM EDT Office Visit [facility] [address] [facility], 7th Floor, [address] [place] [address] Roxana Ornelas MD 55 [facility] 3 [place] [address] CHIN@[facility] 02/21/2026 10:00 AM EDT Telemedicine - audio only [facility] & [facility] Surgery 55 [facility], 4th Floor, [address] [place] [address] Janie Blackmon FNP 55 [facility] 460 [place] [phone] [email or web address] g documented as of this encounter Visit Diagnoses Not on filedocumented in this encounter Care Teams Membership Sales Advisor Relationship Specialty Start Date End Date Frankie Padron MD [address] [place] [address] [place] [address] PCP - General Internal Medicine 07/16/19 Saniya Tan MD 55 [facility] YA [address] [place], [place] DIALLO@[email or web address] Primary Oncologist Medical Oncology 12/22/20 Domenic Goldsmith MD, PhD 55 [facility] [address] [place], [place] JIGAR@[email or web address] Surgical Oncology 01/11/21 Robert Lomax MD 55 [facility] [address] [place] [address] MARCELA@[facility] Cardiothoracic Surgery 07/03/22 08/18/23 Mary Sanon MD 55 [facility] 3 [place] [address] maria [email or web address] Radiation Oncology 07/03/22 Marcy Garvey RN 55 [facility] 3 [place] [address] [email or web address] Primary Infusion Nurse 10/23/23 11/19/23 Davina Peraza RN Associate Infusion Nurse 10/29/23 11/19/23 Davina Peraza RN 55 [place] [address] [email or web address] Primary Infusion Nurse 11/20/23 documented as of this encounter Additional Source Comments The information contained in this document represents components of the legal health record. It is not the complete legal health record.[facility]
--- OUTSIDE RECORDS SUMMARY | 2025-09-08 18:09 | XMS_ITS | Encounter Summary ---
Author Organization [facility] Address [address] [place] [address] Phone Care Team Providers Care Foot Specialist Name Role Phone Frankie Padron MD Primary Care Provider Saniya Tan MD Unavailable Domenic Goldsmith MD, PhD Unavailable [phone] Mary Sanon MD Unavailable [phone] Davina Peraza RN Unavailable [email or web address] Encounter Details Date Type Department Care Team (Late st Contact Info) Description 01/15/2024 Procedure Pass MRI, [facility] - [address], [address] [place] [address] Social History Tobacco Use Types [...] Contact Info) Description 02/15/2025 Procedure Pass MRI, [facility] [place] [address] [facility], [address] [place] [address] 08/12/[address], [facility] [place] [address] [facility], [address] [place] [address] 08/12/[address], [facility] - [place] [address] [facility], [address] [place] [address] 08/12/2025 Procedure Pass MRI, [facility] - [address] [facility], [address] [place] [address] 10/14/2025 1:00 PM EST Office [facility] 165 [facility] 9th [place] [address] Bettina Braden MD [address] [place] [address] MARTÍN@[facility] 10/19/2025 3:00 PM EST Infusion [facility] at [address] [address] Unknown, Hany, 02/06/2026 10:30 AM EDT Blood Draw [facility] [place] [address] [place] [address] Saniya Tan MD [address] [address] DIALLO@[facility] 02/06/2026 11:[address], [facility] - [address] [facility], [address] [place] [address] Saniya Tan MD [address] [place] [address] 7[address] [place] [address] DIALLO@[facility] 02/06/2026 12:30 PM EDT Appointment MRI, [facility] - [address], [address] [place] [address] Saniya Tan MD 55 [facility] 7E [place] [address] DIALLO@[facility] 02/07/2026 9:30 AM EDT Appointment MRI, [facility] - [address], [address] [place] [address] Domenic Goldsmith MD, PhD [address] [address] JIGAR@[facility] 02/14/2026 11:00 AM EDT Office Visit [facility], 7th Floor, [address] [place] [address] Saniya Tan MD 55 [facility] 7E [place] [address] DIALLO@[facility] 02/14/2026 11:00 AM EDT Office Visit [facility] 32 [facility], 7th Floor, [address] [place] [address] Roxana Ornelas MD 55 [facility] 3 [place] [address] CHIN@[email or web address] 02/21/2026 10:00 AM EDT Telemedicine - audio only [facility] & Gastrointestinal Surgery 55 [employer], 4th Floor, [address] [place] [address] Janie Blackmon FNP 55 [facility] 460 [place] [phone] [email or web address] g documented as of this encounter Visit Diagnoses Not on filedocumented in this encounter Care Teams Foot Specialist Relationship Specialty Start Date End Date Frankie Padron MD [address] [place] [address] [place] [address] PCP - General Internal Medicine 07/16/19 Saniya Tan MD 55 [facility] Y[facility] [address] [place] [address] DIALLO@[email or web address] Primary Oncologist Medical Oncology 12/22/20 Domenic Goldsmith MD, PhD 55 [facility] 7B [place] [address] JIGAR@[email or web address] Surgical Oncology 01/11/21 Mary Sanon MD 55 [facility] MAY 3 [place] [address] maria [email or web address] u Radiation Oncology 07/03/22 Davina Peraza RN 55 [place] [address] [email or web address] Primary Infusion Nurse 11/20/23 documented as of this encounter Additional Source Comments The information contained in this document represents components of the legal health record. It is not the complete legal health record.[facility]
--- OUTSIDE RECORDS SUMMARY | 2025-09-08 18:09 | XMS_ITS | Encounter Summary ---
Author Organization [facility] Address [address] [place] [address] Phone Care Team Providers Care Online Marketing Coordinator Name Role Phone Frankie Padron MD Primary Care Provider Saniya Tan MD Unavailable Domenic Goldsmith MD, PhD Unavailable [phone] Roebrt Lomax MD Unavailable Mary Sanon MD Unavailable Marcy Garvey RN Unavailable [email or web address] [email or web address] [place].[facility] Davina Peraza RN Unavailable [email or web address] Davina Peraza RN Unavailable [email or web address] Encounter Details Date Type Department Care Team (Late st Contact Info) Description 05/23/2021 Procedure Pass [facility] Ct Scan - [address] [address] Social History Tobacco Use Types Packs/Day Years [...] [facility] [place] [address] [facility], [address] [place] [address] 08/12/[address], [facility] - [address] [facility], [address] [place] [address] 08/12/[address], [facility] - [place] [address] [facility], [address] [place] [address] 08/12/2025 Procedure Pass MRI, [facility] - [address] [facility], [address] [place] [address] 10/14/2025 1:00 PM EST Office Visit [facility] 165 [facility] 9th [place] [address] Bettina Braden MD [address] [place] [address] MARTÍN@[facility] 10/19/2025 3:00 PM EST Infusion [facility] at [address] [address] Hany Leach MD 02/06/2026 10:30 AM EDT Blood Draw [facility] Lab [address] [address] Saniya Tan MD [address] [place] [address] DIALLO@[email or web address] 02/06/2026 11:[address], [facility] - [address] [facility], [address] [place] [address] Saniya Tan MD [address] [place] [address] DIALLO@[facility] 02/06/2026 12:30 PM EDT Appointment MRI, [facility] - [place] 52 [facility], [address] [place] [address] Saniya Tan MD 55 [facility] 7[address] [place] [address] DIALLO@[email or web address] 02/07/2026 9:30 AM EDT Appointment MRI, [facility] - [address], [address] [place] [address] Domenic Goldsmith MD, PhD 55 [facility] 7[address] [place] [address] JIGAR@[facility] 02/14/2026 11:00 AM EDT Office Visit [facility] 32 [facility], 7th Floor, [address] [place] [address] Saniya Tan MD [address] [place] [address] 7[address] [place] [address] DIALLO@[email or web address] 02/14/2026 11:00 AM EDT Office Visit [facility] 32 [facility], 7th Floor, [address] [place] [address] Roxana Ornelas MD [address] [place] [address] MAY 3 [place] [address] CHIN@[email or web address] 02/21/2026 10:00 AM EDT Telemedicine - audio only [facility] General & Gastrointestinal Surgery 55 [facility], 4th Floor, [address] [place] [address] Janie Blackmon FNP 55 [facility] 460 [place] [phone] [email or web address] [email or web address] g documented as of this encounter Visit Diagnoses Not on filedocumented in this encounter Care Teams Online Marketing Coordinator Relationship Specialty Start Date End Date Frankie Padron MD [address] [place] [address] [place] [address] PCP - General Internal Medicine 07/16/19 Saniya Tan MD 55 [facility] YA 7E [place], [place] DIALLO@[email or web address] Primary Oncologist Medical Oncology 12/22/20 Domenic Goldsmith MD, PhD [address] [facility] [address] [place], [place] JIGAR@[email or web address] Surgical Oncology 01/11/21 Robert Lomax MD 55 [facility] [address] [place] [address] MARCELA@[email or web address] Cardiothoracic Surgery 07/03/22 08/18/23 Mary Sanon MD 55 [facility] 3 [place] [address] maria [email or web address] Radiation Oncology 07/03/22 Marcy Garvey RN 55 [facility] 3 [place] [address] [email or web address] Primary Infusion Nurse 10/23/23 11/19/23 Davina Peraza RN Associate Infusion Nurse 10/29/23 11/19/23 Davina Peraza RN 55 [place] [address] [email or web address] Primary Infusion Nurse 11/20/23 documented as of this encounter Additional Source Comments The information contained in this document represents components of the legal health record. It is not the complete legal health record.[facility]
--- OUTSIDE RECORDS SUMMARY | 2025-09-08 18:09 | XMS_ITS | Encounter Summary ---
Author Organization [facility] Address [address] [facility] [address] [place] [address] Phone Care Team Providers Care Repatcher Name Role Phone Frankie Padron MD Primary Care Provider Saniya Tan MD Unavailable Domenic Goldsmith MD, PhD Unavailable Robert Lomax MD Unavailable Mary Sanon MD Unavailable [phone] Marcy Garvey RN Unavailable [email or web address] Davina Peraza RN Unavailable [email or web address] Davina Peraza RN Unavailable [email or web address] Encounter Details Date Type Department Care Team (Late st Contact Info) Description 07/06/2021 Procedure Pass [facility] PERIOPER[facility]IVE DEPT 55 [place] [address] Social History Tobacco Use Types Packs/Day Years [...] Contact Info) Description 02/15/2025 Procedure Pass MRI, [facility] - [place] [address] [facility], [address] [place] [address] 08/12/[address], [facility] - [place] [address] [facility], [address] [place] [address] 08/12/[address], [facility] - [place] [address] [facility], [address] [place] [address] 08/12/2025 Procedure Pass MRI, [facility] Imaging - [place] [address] [facility], [address] [place] [address] 10/14/2025 1:00 PM EST Office Visit [facility] 165 [facility] 9th [place] [address] Bettina Braden MD [address] [place] [address] 4 [place] [address] MARTÍN@[facility] 10/19/2025 3:00 PM EST Infusion [facility] at [address] [address] Hany Leach MD 02/06/2026 10:30 AM EDT Blood Draw [facility] Lab [address] [place] [address] Saniya Tan MD [address] [place] [address] DIALLO@[facility] 02/06/2026 11:[address], [facility] - [place] 52 [facility], [address] [place] [address] Saniya Tan MD [address] [place] [address] 7[address] [place] [address] DIALLO@[facility] 02/06/2026 12:30 PM EDT Appointment MRI, [facility] - [place] 52 [facility], [address] [place] [address] Saniya Tan MD 55 [facility] 7E [place] [address] DIALLO@[facility] 02/07/2026 9:30 AM EDT Appointment MRI, [facility] - [place] 52 [facility], [address] [place] [address] Domenic Goldsmith MD, PhD 55 [facility] 7B [place] [address] JIGAR@[email or web address] 02/14/2026 11:00 AM EDT Office Visit [facility] 32 [facility], 7th Floor, [address] [place] [address] Saniya Tan MD [address] [place] [address] 7[address] [place] [address] DIALLO@[facility] 02/14/2026 11:00 AM EDT Office Visit [facility] 32 [facility], 7th Floor, [address] [place] [address] Roxana Ornelas MD 55 [facility] MAY 3 [place] [address] CHIN@[email or web address] 02/21/2026 10:00 AM EDT Telemedicine - audio only [facility] General & Gastrointestinal Surgery 55 [facility], 4th Floor, [address] [place] [address] Janie Blackmon FNP 55 [facility] 460 [place] [phone] [email or web address] g documented as of this encounter Visit Diagnoses Not on filedocumented in this encounter Care Teams Repatcher Relationship Specialty Start Date End Date Frankie Padron MD [address] [place] [address] [place] [address] PCP - General Internal Medicine 07/16/19 Saniya Tan MD 55 [facility] YA [address] [place] [address] DIALLO@[email or web address] Primary Oncologist Medical Oncology 12/22/20 Domenic Goldsmith MD, PhD [address] [facility] 7B [place] [address] [email or web address] Surgical Oncology 01/11/21 Robert Lomax MD 55 [facility] 7B [place] [address] MARCELA@[email or web address] Cardiothoracic Surgery 07/03/22 08/18/23 Mary Sanon MD 55 [facility] 3 [place] [address] maria [email or web address] Radiation Oncology 07/03/22 Marcy Garvey RN 55 [facility] 3 [place] [address] [email or web address] Primary Infusion Nurse 10/23/23 11/19/23 Davina Peraza RN Associate Infusion Nurse 10/29/23 11/19/23 Davina Peraza RN 55 [place] [address] [email or web address] Primary Infusion Nurse 11/20/23 documented as of this encounter Additional Source Comments The information contained in this document represents components of the legal health record. It is not the complete legal health record.[facility]
--- OUTSIDE RECORDS SUMMARY | 2025-09-08 18:09 | XMS_ITS | Encounter Summary ---
Author Organization [facility] Address [address] [facility] [address] [place] [address] Phone Care Team Providers Care Service Delivery Supervisor Name Role Phone Frankei Pardon MD Primary Care Provider Saniya Tan MD Unavailable Domenic Goldsmith MD, PhD Unavailable [phone] Robert Lomax MD Unavailable Mary Sanon MD Unavailable [phone] Marcy Garvey RN Unavailable [email or web address] Davina Peraza RN Unavailable [email or web address] Davina Peraza RN Unavailable [email or web address] Encounter Details Date Type Department Care Team (Late st Contact Info) Description 02/17/2023 Procedure Pass [facility] PERIOPERATIVE DEPT [address] [place] [address] Social History Tobacco Use Types Packs/Day Years [...] MRI, [facility] General Imaging - [place] [address] [facility], [address] [place] [address] 08/12/[address], [facility] - [place] [address] [facility], [address] [place] [address] 08/12/[address], [facility] General Imaging - [place] [address] [facility], [address] [place] [address] 08/12/2025 Procedure Pass MRI, [facility] General Imaging - [place] [address] [facility], [address] [place] [address] 10/14/2025 1:00 PM EST Office Visit [facility] [address] [facility] 9th [place] [address] Bettina Braden MD [address] [place] [address] MARTÍN@[facility] 10/19/2025 3:00 PM EST Infusion [facility] at [address] [address] Hany Leach MD 02/06/2026 10:30 AM EDT Blood Draw [facility] Lab [address] [place] [address] Saniya Tan MD [address] [place] [address] DIALLO@[facility] 02/06/2026 11:[address], [facility] General Imaging - [place] 52 [facility], [address] [place] [address] Saniya Tan MD [address] [place] [address] DIALLO@[facility] 02/06/2026 12:30 PM EDT Appointment MRI, [facility] General Imaging - [place] 52 [facility], [address] [place] [address] Saniya Tan MD 55 [facility] 7E [place] [address] DIALLO@[facility] 02/07/2026 9:30 AM EDT Appointment MRI, [facility] - [address], [address] [place] [address] Domenic Goldsmith MD, PhD 55 [facility] 7B [place] [address] JIGAR@[facility] 02/14/2026 11:00 AM EDT Office [facility] [address] [facility], 7th Floor, [address] [place] [address] Saniya Tan MD [address] [place] [address] 7[address] [place] [address] DIALLO@[facility] 02/14/2026 11:00 AM EDT Office Visit [facility] [address] [facility], 7th Floor, [address] [place] [address] Roxana Ornelas MD 55 [facility] MAY 3 [place] [address] CHIN@[facility] 02/21/2026 10:00 AM EDT Telemedicine - audio only [facility] General & Gastrointestinal Surgery 55 [facility], 4th Floor, [address] [place] [address] Janie Blackmon FNP 55 [facility] 460 [place] [phone] [email or web address] g documented as of this encounter Visit Diagnoses Not on filedocumented in this encounter Care Teams Service Delivery Supervisor Relationship Specialty Start Date End Date Frankie Padron MD [address] [place] [address] [place] [address] PCP - General Internal Medicine 07/16/19 Saniya Tan MD [address] [place], [place] [email or web address]@[email or web address] Primary Oncologist Medical Oncology 12/22/20 Domenic Goldsmith MD, PhD [address] [place] [address] JIGAR@[email or web address] Surgical Oncology 01/11/21 Robert Lomax MD [address] [facility] [address] [facility] [address] [place] [address] MARCELA@[email or web address] Cardiothoracic Surgery 07/03/22 08/18/23 Mary Sanon MD 55 [facility] 3 [place] [address] maria [email or web address] Radiation Oncology 07/03/22 Marcy Garvey RN 55 [facility] 3 [place] [address] [email or web address] Primary Infusion Nurse 10/23/23 11/19/23 Davina Peraza RN Associate Infusion Nurse 10/29/23 11/19/23 Davina Peraza RN 55 [place] [address] [email or web address] Primary Infusion Nurse 11/20/23 documented as of this encounter Additional Source Comments The information contained in this document represents components of the legal health record. It is not the complete legal health record.[facility]
--- OUTSIDE RECORDS SUMMARY | 2025-09-08 18:09 | XMS_ITS | Encounter Summary ---
Author Organization [facility] Address [address] [facility] [address] [place] [address] Phone Care Team Providers Care Carbonizer Name Role Phone Frankie Padron MD Primary Care Provider Saniya Tna MD Unavailable Domenic Goldsmith MD, PhD Unavailable [phone] Robert Lomax MD Unavailable [phone] Mary Sanon MD Unavailable Marcy Garvey RN Unavailable [email or web address] Davina Peraza RN Unavailable [email or web address] Davina Peraza RN Unavailable [email or web address] Encounter Details Date Type Department Care Team (Late st Contact Info) Description 06/19/2021 Procedure Pass [facility] Imaging - RF/IR [address] [place] [address] Social History Tobacco Use Types Packs/Day Years [...] Contact Info) Description 02/15/2025 Procedure Pass MRI, [facility] General Imaging - [place] [address] [facility], [address] [place] [address] 08/12/[address], [facility] General Imaging - [place] [address] [facility], [address] [place] [address] 08/12/[address], [facility] General Imaging - [place] [address] [facility], [address] [place] [address] 08/12/2025 Procedure Pass MRI, [facility] General Imaging - [place] [address] [facility], [address] [place] [address] 10/14/2025 1:00 PM EST Office Visit [facility] [address] [facility] 9th [place] [address] Bettina Braden MD [address] [place] [address] 4 [place] [address] MARTÍN@[facility] 10/19/2025 3:00 PM EST Infusion [facility] at [address] [address] Hany Leach MD 02/06/2026 10:30 AM EDT Blood Draw [facility] Lab [address] [place] [address] Saniya Tan MD [address] [place] [address] DIALLO@[facility] 02/06/2026 11:[address], [facility] General Imaging - [place] [facility], [address] [place] [address] Saniya Tan MD [address] [place] [address] 7[address] [place] [address] DIALLO@[facility] 02/06/2026 12:30 PM EDT Appointment MRI, [facility] General Imaging - [place] 52 [facility], [address] [place] [address] Saniya aTn MD 55 [facility] 7E [place] [address] DIALLO@[facility] 02/07/2026 9:30 AM EDT Appointment MRI, [facility] Imaging - [place] 52 [facility], [address] [place] [address] Domenic Goldsmith MD, PhD 55 [facility] 7[address] [place] [address] JIGAR@[facility] 02/14/2026 11:00 AM EDT Office Visit [facility] 32 [facility], 7th Floor, [address] [place] [address] Saniya Tan MD [address] [place] [address] 7[address] [place] [address] DIALLO@[facility] 02/14/2026 11:00 AM EDT Office Visit [facility] 32 [facility], 7th Floor, [address] [place] [address] Roxana Ornelas MD 55 [facility] MAY 3 [place] [address] CHIN@[facility] 02/21/2026 10:00 AM EDT Telemedicine - audio only [facility] General & Gastrointestinal Surgery 55 [facility], 4th Floor, [address] [place] [address] Janie Blackmon FNP 55 [facility] 460 [place] [phone] [email or web address] g documented as of this encounter Visit Diagnoses Not on filedocumented in this encounter Care Teams Carbonizer Relationship Specialty Start Date End Date Frankie Padron MD [address] [place] [address] [place] [address] PCP - General Internal Medicine 07/16/19 Saniya Tan MD 55 [facility] YA 7E [place] [address] DIALLO@[email or web address] Primary Oncologist Medical Oncology 12/22/20 Domenic Goldsmith MD, PhD [address] [facility] [address] [place] [address] JIGAR@[email or web address] Surgical Oncology 01/11/21 Robert Lomax MD 55 [facility] 7[address] [place] [address] MARCELA@[email or web address] Cardiothoracic Surgery 07/03/22 08/18/23 Mary Sanon MD 55 [facility] 3 [place] [address] [email or web address] [email or web address] Radiation Oncology 07/03/22 Marcy Garvey RN 55 [facility] 3 [place] [address] [email or web address] Primary Infusion Nurse 10/23/23 11/19/23 Davina Peraza RN Associate Infusion Nurse 10/29/23 11/19/23 aDvina Peraza RN 55 [place] [address] [email or web address] Primary Infusion Nurse 11/20/23 documented as of this encounter Additional Source Comments The information contained in this document represents components of the legal health record. It is not the complete legal health record.[facility]
--- OUTSIDE RECORDS SUMMARY | 2025-09-08 18:09 | XMS_ITS | Encounter Summary ---
Author Organization [facility] Address [address] [place] [address] Phone Care Team Providers Care Metal Sponge Making Machine Operator Name Role Phone Frankie Padron MD Primary Care Provider Saniya Tan MD Unavailable Domenic Goldsmith MD, PhD Unavailable [phone] Mary Sanon MD Unavailable Davina Peraza RN Unavailable [email or web address] Encounter Details Date Type Department Care Team (Late st Contact Info) Description 11/18/2024 Transcribe Orders [facility] Lab Main [address] [place] [address] Ryan King MD [address] [place] [address] [email or web address] Social History Tobacco Use Types Packs/Day Years [...] Contact Info) Description 02/15/2025 Procedure Pass MRI, [facility] General Imaging - [address], [address] [place] [address] 08/12/[address], [facility] General Imaging - [address], [address] [place] [address] 08/12/[address], [facility] General Imaging - [place] [address] [facility], [address] [place] [address] 08/12/2025 Procedure Pass MRI, [facility] - [address], [address] [place] [address] 10/14/2025 1:00 PM EST Office Visit [facility] 165 [facility] [address] [address] Bettina Braden MD [address] [place] [address] MARTÍN@[facility] 10/19/2025 3:[address] [facility] at [address] [address] Hany Leach MD 02/06/2026 10:30 AM EDT Blood Draw [facility] Lab [address] [address] Saniya Tan MD [address] [address] DIALLO@[facility] 02/06/2026 11:[address], [facility] - [address], [address] [place] [address] Saniya Tan MD [address] [place] [address] DIALLO@[facility] 02/06/2026 12:30 PM EDT Appointment MRI, [facility] - [address], [address] [place] [address] Saniya Tan MD [address] [place] [address] DIALLO@[facility] 02/07/2026 9:30 AM EDT Appointment MRI, [facility] - [address], [address] [place] [address] Domenic Goldsmith MD, PhD [address] [address] JIGAR@[facility] 02/14/2026 11:00 AM EDT Office Visit [facility] 32 [facility], 7th Floor, [address] [place] [address] Saniya Tan MD 55 [facility] 7E [place] [address] DIALLO@[facility] 02/14/2026 11:00 AM EDT Office Visit [facility] 32 [facility], 7th Floor, [address] [place] [address] Roxana Ornelas MD 55 [facility] 3 [place] [address] CHIN@[facility] 02/21/2026 10:00 AM EDT Telemedicine - audio only [facility] General & Gastrointestinal Surgery 55 [facility], 4th Floor, [address] [place] [address] Janie Blackmon FNP 55 [facility] 460 [place] [phone] [email or web address] g documented as of this encounter Visit Diagnoses Not on filedocumented in this encounter Care Teams Metal Sponge Making Machine Operator Relationship Specialty Start Date End Date Frankie Padron MD [address] [place] [address] [place] [address] PCP - General Internal Medicine 07/16/19 Saniya Tan MD [address] [place] [address] [address] [place] [address] DIALLO@[facility] Primary Oncologist Medical Oncology 12/22/20 Domenic Goldsmith MD, PhD [address] [place] [address] 7[address] [place] [address] [email or web address] Surgical Oncology 01/11/21 Mary Sanon MD [address] [place] [address] 3 [place] [address] maria [email or web address] Radiation Oncology 07/03/22 Davina Peraza, RACHEL 55 [place] [address] [email or web address] Primary Infusion Nurse 11/20/23 documented as of this encounter Additional Source Comments The information contained in this document represents components of the legal health record. It is not the complete legal health record.[facility]
--- OUTSIDE RECORDS SUMMARY | 2025-09-08 18:09 | XMS_ITS | Encounter Summary ---
Author Organization [facility] Address [address] [facility] [address] [place] [address] Phone Care Team Providers Care Assurance Senior Manager Insurance Name Role Phone Frankie Padron MD Primary Care Provider Saniya Tan MD Unavailable Domenic Goldsmith MD, PhD Unavailable [phone] Robert Lomax MD Unavailable Mary Sanon MD Unavailable [phone] Marcy Garvey RN Unavailable [email or web address] Davina Peraza RN Unavailable [email or web address] Davina Peraza RN Unavailable [email or web address] Encounter Details Date Type Department Care Team (Late st Contact Info) Description 10/09/2022 Procedure Pass [facility] PERIOPERATIVE DEPT [address] [place] [address] Social History Tobacco Use Types Packs/Day Years [...] Contact Info) Description 02/15/2025 Procedure Pass MRI, [facility] General Imaging - [place] [address] [facility], [address] [place] [address] 08/12/[address], [facility] Imaging - [place] [address] [facility], [address] [place] [address] 08/12/[address], [facility] - [place] [address] [facility], [address] [place] [address] 08/12/2025 Procedure Pass MRI, [facility] General Imaging - [place] [address] [facility], [address] [place] [address] 10/14/2025 1:00 PM EST Office Visit [facility] 165 [facility] 9th [place] [address] Bettina Braden MD [address] [place] [address] 4 [place] [address] MARTÍN@[facility] 10/19/2025 3:00 PM EST Infusion [facility] at [address] [address] Hany Leach MD 02/06/2026 10:30 AM EDT Blood Draw [facility] Lab [address] [place] [address] Saniya Tan MD [address] [place] [address] DIALLO@[facility] 02/06/2026 11:[address], [facility] General Imaging - [place] 52 [facility], [address] [place] [address] Saniya Tan MD [address] [place] [address] [address] [place] [address] DIALLO@[facility] 02/06/2026 12:30 PM EDT Appointment MRI, [facility] - [place] 52 [facility], [address] [place] [address] Saniya Tan MD 55 [facility] 7E [place] [address] DIALLO@[facility] 02/07/2026 9:30 AM EDT Appointment MRI, [facility] Imaging - [place] 52 [facility], [address] [place] [address] Domenic Goldsmith MD, PhD 55 [facility] 7[address] [place] [address] JIGAR@[facility] 02/14/2026 11:00 AM EDT Office Visit [facility] 32 [facility], 7th Floor, [address] [place] [address] Saniya Tan MD [address] [place] [address] [address] [place] [address] DIALLO@[facility] 02/14/2026 11:00 AM EDT Office Visit [facility] 32 [facility], 7th Floor, [address] [place] [address] Roxana Ornelas MD 55 [facility] MAY 3 [place] [address] CHIN@[facility] 02/21/2026 10:00 AM EDT Telemedicine - audio only [facility] General & Gastrointestinal Surgery 55 [facility], 4th Floor, [address] [place] [address] Janie Blackmon FNP 55 [facility] 460 [place] [phone] [email or web address] g documented as of this encounter Visit Diagnoses Not on filedocumented in this encounter Care Teams Assurance Senior Manager Insurance Relationship Specialty Start Date End Date Frankie Padron MD [address] [place] [address] [place] [address] PCP - General Internal Medicine 07/16/19 Saniya Tan MD 55 [facility] YA [address] [place] [address] [email or web address] Primary Oncologist Medical Oncology 12/22/20 Domenic Goldsmith MD, PhD [address] [facility] 7[address] [place] [address] JIGAR@[facility] Surgical Oncology 01/11/21 Robert Lomax MD 55 [facility] 7[address] [place] [address] MARCELA@[facility] Cardiothoracic Surgery 07/03/22 08/18/23 Mary Sanon MD [address] [facility] 3 [place] [address] maria [email or web address] Radiation Oncology 07/03/22 Marcy Garvey RN [address] [facility] 3 [place] [address] [email or web address] Primary Infusion Nurse 10/23/23 11/19/23 Davina Peraza RN Associate Infusion Nurse 10/29/23 11/19/23 Davina Peraza RN 55 [place] [address] [email or web address] Primary Infusion Nurse 11/20/23 documented as of this encounter Additional Source Comments The information contained in this document represents components of the legal health record. It is not the complete legal health record.[facility]
--- OUTSIDE RECORDS SUMMARY | 2025-09-08 18:10 | XMS_ITS | Encounter Summary ---
Author Organization [facility] Address [address] [place] [address] Phone Care Team Providers Care Asbestos Removal Worker Name Role Phone Frankie Padron MD Primary Care Provider Saniya Tan MD Unavailable Domenic Goldsmith MD, PhD Unavailable [phone] Mary Sanon MD Unavailable [phone] Davina Peraza RN Unavailable [email or web address] Encounter Details Date Type Department Care Team (Late st Contact Info) Description 06/29/[address], [facility] - [address], [address] [place] [address] Social History Tobacco Use Types [...] Contact Info) Description 02/15/2025 Procedure Pass MRI, [facility] - [address], [address] [place] [address] 08/12/[address], [facility] - [address], [address] [place] [address] 08/12/[address], [facility] - [address], [address] [place] [address] 08/12/2025 Procedure Pass MRI, [facility] - [address] [facility], [address] [place] [address] 10/14/2025 1:00 PM EST Office Visit [facility] [address] 9th [place] [address] Bettina Braden MD 55 [facility] 4 [place] [address] MARTÍN@[facility] 10/19/2025 3:00 PM EST Infusion [facility] at [place] [address] [place] [address] Hany Leach MD 02/06/2026 10:30 AM EDT Blood Draw [facility] Lab [address] [place] [address] Saniya Tan MD 55 [facility] YA 7E [place] [address] DIALLO@[email or web address] 02/06/2026 11:[address], [facility] Imaging - [address], [address] [place] [address] Saniya Tan MD 55 [facility] 7E [place] [address] DIALLO@[facility] 02/06/2026 12:30 PM EDT Appointment MRI, [facility] - [address], [address] [place] [address] Saniya Tan MD 55 [facility] 7E [place] [address] DIALLO@[facility] 02/07/2026 9:30 AM EDT Appointment MRI, [facility] - [address], [address] [place] [address] Domenic Goldsmith MD, PhD 55 [facility] 7B [place] [address] [email or web address] 02/14/2026 11:00 AM EDT Office Visit [facility] [address] [facility], 7th Floor, [address] [place] [address] Saniya Tan MD 55 [facility] 7E [place] [address] DIALLO@[facility] 02/14/2026 11:00 AM EDT Office Visit [facility] 32 [facility], 7th Floor, [address] [place] [address] Roxana Ornelas MD 55 [facility] 3 [place] [address] CHIN@[email or web address] 02/21/2026 10:00 AM EDT Telemedicine - audio only [facility] General & Gastrointestinal Surgery 55 [facility], 4th Floor, [address] [place] [address] Janie Blackmon FNP 55 [facility] 460 [place] [phone] [email or web address] g documented as of this encounter Visit Diagnoses Not on filedocumented in this encounter Care Teams Asbestos Removal Worker Relationship Specialty Start Date End Date Frankie Padron MD [address] [place] [address] [place] [address] PCP - General Internal Medicine 07/16/19 Saniya Tan MD 55 [facility] 7E [place] [address] [email or web address] Primary Oncologist Medical Oncology 12/22/20 Domenic Goldsmith MD, PhD [address] [place] [address] 7[address] [place] [address] JIGAR@[email or web address] Surgical Oncology 01/11/21 Mary Sanon MD 55 [facility] 3 [place] [address] maria [email or web address] u Radiation Oncology 07/03/22 Davina Peraza, RACHEL 55 [place] [address] [email or web address] Primary Infusion Nurse 11/20/23 documented as of this encounter Additional Source Comments The information contained in this document represents components of the legal health record. It is not the complete legal health record.[facility]
--- OUTSIDE RECORDS SUMMARY | 2025-09-08 18:10 | XMS_ITS | Encounter Summary ---
Author Organization [facility] Address [address] [place] [address] Phone Care Team Providers Care Geometry Tutor Name Role Phone Frankie Padron MD Primary Care Provider Saniya Tan MD Unavailable Domenic Goldsmith MD, PhD Unavailable [phone] Mary aSnon MD Unavailable [phone] Marcy Garvey RN Unavailable [email or web address] [place] Davina Peraza RN Unavailable [email or web address] Davina Peraza RN Unavailable [email or web address] Encounter Details Date Type Department Care Team (Late st Contact Info) Description 10/21/2023 Procedure Pass Interventional Radiology, [facility] - [address], [address] [place] [phone] Social History Tobacco Use Types Packs/Day Years [...] Contact Info) Description 02/15/2025 Procedure Pass MRI, [facility] - [place] [address] [facility], [address] [place] [address] 08/12/[address], [facility] - [place] [facility], [address] [place] [address] 08/12/[address], [facility] - [address] [facility], [address] [place] [address] 08/12/2025 Procedure Pass MRI, [facility] - [address] [facility], [address] [place] [address] 10/14/2025 1:00 PM EST Office Visit [facility] [address] 9th [place] [address] Bettina Braden MD [address] [place] [address] 4 [place] [address] MARTÍN@[facility] 10/19/2025 3:00 PM EST Infusion [facility] at [address] [address] Unknown, MD Hany 02/06/2026 10:30 AM EDT Blood Draw [facility] Lab [address] [place] [address] Saniya Tan MD 55 [facility] 7E [place] [address] DIALLO@[facility] 02/06/2026 11:[address], [facility] General Imaging - [address], [address] [place] [address] Saniya Tan MD 55 [facility] 7[address] [place] [address] DIALLO@[facility] 02/06/2026 12:30 PM EDT Appointment MRI, [facility] - [address], [address] [place] [address] Saniya Tan MD [address] [address] DIALLO@[facility] 02/07/2026 9:30 AM EDT Appointment MRI, [facility] - [address], [address] [place] [address] Domenic Goldsmith MD, PhD 55 [facility] 7[address] [place] [address] MQADAN@[facility] 02/14/2026 11:00 AM EDT Office Visit [facility] 32 [facility], 7th Floor, [address] [place] [address] Saniya Tan MD [address] [place] [address] [address] [place] [address] DIALLO@[facility] 02/14/2026 11:00 AM EDT Office Visit [facility] 32 [facility], 7th Floor, [address] [place] [address] Roxana Ornelas MD 55 [facility] 3 [place] [address] CHIN@[facility] 02/21/2026 10:00 AM EDT Telemedicine - audio only [facility] General & Gastrointestinal Surgery 55 [facility], 4th Floor, [address] [place] [address] Janie Blackmon, MENSWEAR SALESPERSON 55 [facility] 460 [place] [phone] [email or web address] g documented as of this encounter Visit Diagnoses Not on filedocumented in this encounter Care Teams Geometry Tutor Relationship Specialty Start Date End Date Frankie Padron MD [address] [place] [address] [place] [address] PCP - General Internal Medicine 07/16/19 Saniya Tan MD [address] [place] [address] 7[address] [place], [place] [email or web address] jose angel Primary Oncologist Medical Oncology 12/22/20 Domenic Goldsmith MD, PhD [address] [place] [address] 7[address] [place] [address] [email or web address] u Surgical Oncology 01/11/21 Mary Sanon MD [address] [place] [address] 3 [place] [address] maria [email or web address]. [facility] [place] Radiation Oncology 07/03/22 Marcy Garevy RN 55 [facility] 3 [place] [address] [email or web address] Primary Infusion Nurse 10/23/23 11/19/23 Davina Peraza RN Associate Infusion Nurse 10/29/2311/03 Davina Peraza RN 55 [place] [address] [email or web address] Primary Infusion Nurse 11/20/23 documented as of this encounter Additional Source Comments The information contained in this document represents components of the legal health record. It is not the complete legal health record.[facility]
--- OUTSIDE RECORDS SUMMARY | 2025-09-08 18:10 | XMS_ITS | Encounter Summary ---
Author Organization [facility] Address [address] [facility] [address] [place] [address] Phone Care Team Providers Care Client Care Representative Name Role Phone Frankie Padron MD Primary Care Provider Saniya Tan MD Unavailable Domenic Goldsmith MD, PhD Unavailable [phone] Robert Lomax MD Unavailable Mary Sanon MD Unavailable Marcy Garvey RN Unavailable [email or web address] Davina Peraza RN Unavailable [email or web address] Davina Peraza RN Unavailable [email or web address] Encounter Details Date Type Department Care Team (Late st Contact Info) Description 10/10/2021 Procedure Pass [facility] PERIOPERATIVE DEPT [address] [place] [phone] Social History Tobacco Use Types Packs/Day Years [...] Contact Info) Description 02/15/2025 Procedure Pass MRI, [facility] - [place] [address] [facility], [address] [place] [address] 08/12/[address], [facility] - [place] [address] [facility], [address] [place] [address] 08/12/[address], [facility] - [place] [address] [facility], [address] [place] [address] 08/12/2025 Procedure Pass MRI, [facility] General Imaging - [place] [address] [facility], [address] [place] [address] 10/14/2025 1:00 PM EST Office Visit [facility] 165 [facility] 9th [place] [address] Bettina Braden MD [address] [place] [address] 4 [place] [address] MARTÍN@[email or web address] 10/19/2025 3:00 PM EST Infusion [facility] at [address] [address] Hany Leach MD 02/06/2026 10:30 AM EDT Blood Draw [facility] Lab [address] [place] [address] Saniya Tan MD [address] [place] [address] DIALLO@[email or web address] 02/06/2026 11:[address], [facility] - [place] 52 [facility], [address] [place] [address] Saniya Tan MD [address] [place] [address] 7[address] [place] [address] DIALLO@[email or web address] 02/06/2026 12:30 PM EDT Appointment MRI, [facility] - [place] 52 [facility], [address] [place] [address] Saniya Tan MD 55 [facility] 7E [place] [address] DIALLO@[email or web address] 02/07/2026 9:30 AM EDT Appointment MRI, [facility] [place] 52 [facility], [address] [place] [address] Domenic Goldsmith MD, PhD 55 [facility] 7[address] [place] [address] JIGAR@[facility] 02/14/2026 11:00 AM EDT Office Visit [facility] [address] [facility], 7th Floor, [address] [place] [address] Saniya Tan MD [address] [place] [address] 7[address] [place] [address] DIALLO@[email or web address] 02/14/2026 11:00 AM EDT Office Visit [facility] [address] [facility], 7th Floor, [address] [place] [address] Roxana Ornelas MD 55 [facility] MAY 3 [place] [address] CHIN@[email or web address] 02/21/2026 10:00 AM EDT Telemedicine - audio only [facility] General & Gastrointestinal Surgery 55 [facility], 4th Floor, [address] [place] [address] Janie Blackmon FNP 55 [facility] 460 [place] [phone] [email or web address] g documented as of this encounter Visit Diagnoses Not on filedocumented in this encounter Care Teams Client Care Representative Relationship Specialty Start Date End Date Frankie Padron MD [address] [place] [address] [place] [address] PCP - General Internal Medicine 07/16/19 Saniya Tan MD 55 [facility] YA 7E [place] [address] DIALLO@[email or web address] Primary Oncologist Medical Oncology 12/22/20 Domenic Goldsmith MD, PhD [address] [place] 7B [place] [address] JIGAR@[email or web address] Surgical Oncology 01/11/21 Robert Lomax MD 55 [facility] 7B [place] [address] MARCELA@[email or web address] Cardiothoracic Surgery 07/03/22 08/18/23 Mary Sanon MD 55 [facility] 3 [place] [address] maria [email or web address] Radiation Oncology 07/03/22 Marcy Garvey RN 55 [facility] 3 [place] [address] [email or web address] Primary Infusion Nurse 10/23/23 11/19/23 Davina Peraza RN Associate Infusion Nurse 10/29/23 11/19/23 Davina Peraza RN 55 [place] [address] [email or web address] Primary Infusion Nurse 11/20/23 documented as of this encounter Additional Source Comments The information contained in this document represents components of the legal health record. It is not the complete legal health record.[facility]
--- OUTSIDE RECORDS SUMMARY | 2025-09-08 18:10 | XMS_ITS | Encounter Summary ---
Author Organization [facility] Address [address] [facility] [address] [place] [address] Phone Care Team Providers Care Career Resource Technician Name Role Phone Frankie Padron MD Primary Care Provider Saniya Tan MD Unavailable Domenic Goldsmith MD, PhD Unavailable [phone] Robert Lomax MD Unavailable Mary Sanon MD Unavailable Marcy Garvey RN Unavailable [email or web address] Davina Peraza RN Unavailable [email or web address] Davina Peraza RN Unavailable [email or web address] Encounter Details Date Type Department Care Team (Late st Contact Info) Description 04/21/2020 Procedure Pass [facility]PT [address] [place] [address] Social History Tobacco Use Types Packs/Day Years Used Date Smoking Tobacco: Every Day Cigarettes 1 49.6 Started: 02/11/1976 Smokeless Tobacco: Never Alcohol Use Standard Drinks/Week [...] Contact Info) Description 02/15/2025 Procedure Pass MRI, [facility] Imaging - [place] [address] [facility], [address] [place] [address] 08/12/[address], [facility] - [place] [address] [facility], [address] [place] [address] 08/12/[address], [facility] - [place] [address] [facility], [address] [place] [address] 08/12/2025 Procedure Pass MRI, [facility] Imaging - [place] [address] [facility], [address] [place] [address] 10/14/2025 1:00 PM EST Office Visit [facility] 165 [facility] 9th [place] [address] Bettina Braden MD [address] [place] [address] 4 [place] [address] MARTÍN@[facility] 10/19/2025 3:00 PM EST Infusion [facility] at [address] [address] Hany Leach MD 02/06/2026 10:30 AM EDT Blood Draw [facility] Lab [address] [place] [address] Saniya Tan MD [address] [place] [address] DIALLO@[facility] 02/06/2026 11:[address], [facility] Imaging - [place] 52 [facility], [address] [place] [address] Saniya Tan MD [address] [place] [address] 7[address] [place] [address] DIALLO@[facility] 02/06/2026 12:30 PM EDT Appointment MRI, [facility] Imaging - [place] [address] [facility], [address] [place] [address] Saniya Tan MD 55 [facility] 7E [place] [address] DIALLO@[facility] 02/07/2026 9:30 AM EDT Appointment MRI, [facility] - [place] [address] [facility], [address] [place] [address] Domenic Goldsmith MD, PhD [address] [address] JIGAR@[facility] 02/14/2026 11:00 AM EDT Office Visit [facility] 32 [facility], 7th Floor, [address] [place] [address] Saniya Tan MD [address] [place] [address] 7[address] [place] [address] DIALLO@[facility] 02/14/2026 11:00 AM EDT Office Visit [facility] 32 [facility], 7th Floor, [address] [place] [address] Roxana Ornelas MD 55 [facility] MAY 3 [place] [address] CHIN@[facility] 02/21/2026 10:00 AM EDT Telemedicine - audio only [facility] General & Gastrointestinal Surgery 55 [facility], 4th Floor, [address] [place] [address] Janie Blackmon FNP 55 [facility] 460 [place] [phone] [email or web address] g documented as of this encounter Visit Diagnoses Not on filedocumented in this encounter Care Teams Career Resource Technician Relationship Specialty Start Date End Date Frankie Padron MD [address] [place] [address] [place] [address] PCP - General Internal Medicine 07/16/19 Saniya Tan MD 55 [facility] YA 7E [place], [place] DIALLO@[email or web address] Primary Oncologist Medical Oncology 12/22/20 Domenic Goldsmith MD, PhD [facility] 7B [place] [address] JIGAR@[facility] Surgical Oncology 01/11/21 Robert Lomax MD 55 [facility] 7B [place] [address] MARCELA@[facility] Cardiothoracic Surgery 07/03/22 08/18/23 Mary Sanon MD 55 [facility] 3 [place] [address] maria [email or web address] Radiation Oncology 07/03/22 Marcy Garvey RN 55 [facility] 3 [place] [address] [email or web address] Primary Infusion Nurse 10/23/23 11/19/23 Davina Peraza RN Associate Infusion Nurse 10/29/23 11/19/23 Davina Peraza RN 55 [place] [address] [email or web address] Primary Infusion Nurse 11/20/23 documented as of this encounter Additional Source Comments The information contained in this document represents components of the legal health record. It is not the complete legal health record.[facility]
--- OUTSIDE RECORDS SUMMARY | 2025-09-08 18:10 | XMS_ITS | Encounter Summary ---
Author Organization [facility] Address [address] [facility] [address] [place] [address] Phone Care Team Providers Care Inventory Control Coordinator Name Role Phone Frankie Padron MD Primary Care Provider Saniya Tan MD Unavailable Domenic Goldsmith MD, PhD Unavailable [phone] Mary Sanon MD Unavailable [phone] Davina Peraza RN Unavailable [email or web address] Encounter Details Date Type Department Care Team (Late st Contact Info) Description 12/04/2023 Procedure Pass [facility] PETCT Imaging, [place] 2 [address] [facility], 2nd [place] [address] Social History Tobacco Use Types Packs/Day Years [...] Contact Info) Description 02/15/2025 Procedure Pass MRI, [facility] General Imaging - [place] [address] [facility], [address] [place] [address] 08/12/[address], [facility] General Imaging - [place] [address] [facility], [address] [place] [address] 08/12/[address], [facility] General Imaging - [place] [address] [facility], [address] [place] [address] 08/12/2025 [facility] Pass [facility], [facility] - [address] [facility], [address] [place] [address] 10/14/2025 1:00 PM EST Office Visit [facility] [address] [facility] 9th [place] [address] Bettina Braden MD 55 [facility] 4 [place] [address] MARTÍN@[facility] 10/19/2025 3:00 PM EST [facility] at [address] [address] H[place], Hany, 02/06/2026 10:30 AM EDT Blood Draw [facility] Lab [place] [address] [place] [address] Saniya Tan MD 55 [facility] 7E [place] [address] DIALLO@[facility] 02/06/2026 11:[address] - [address] [facility], [address] [place] [address] Saniya Tan MD 55 [facility] [address] [place] [address] DIALLO@[facility] 02/06/2026 12:30 PM EDT Appointment MRI, [facility] General Imaging - [address], [address] [place] [address] Saniya Tan MD 55 [facility] 7E [place] [address] DIALLO@[facility] 02/07/2026 9:30 AM EDT Appointment MRI, [facility] General Imaging - [address], [address] [place] [address] Domenic Goldsmith MD, PhD [address] [place] [address] [email or web address] 02/14/2026 11:00 AM EDT Office Visit [facility] [address] [facility], 7th Floor, [address] [place] [address] Saniya Tan MD 55 [facility] [address] [place] [address] DIALLO@[facility] 02/14/2026 11:00 AM EDT Office Visit [facility] 32 [facility], 7th Floor, [address] [place] [address] Roxana Ornelas MD 55 [facility] 3 [place] [address] CHIN@[email or web address] 02/21/2026 10:00 AM EDT Telemedicine - audio only [facility] General & Gastrointestinal Surgery 55 [facility], 4th Floor, [address] [place] [address] Janie Blackmon FNP 55 [facility] 460 [place] [address] [email or web address].sd g documented as of this encounter Visit Diagnoses Not on filedocumented in this encounter Care Teams Inventory Control Coordinator Relationship Specialty Start Date End Date Frankie Padron MD [address] [place] [address] [place] [address] PCP - General Internal Medicine 07/16/19 Saniya Tan MD 55 [facility] YA [address] [place] [address] DIALLO@[email or web address] Primary Oncologist Medical Oncology 12/22/20 Domenic Goldsmith MD, PhD [address] [place] [address] JIGAR@[email or web address] Surgical Oncology 01/11/21 Mary Sanon MD 55 [facility] MAY 3 [place] [address] [email or web address] [email or web address] u Radiation Oncology 07/03/22 Davina Peraza RN 55 [place] [address] [email or web address] Primary Infusion Nurse 11/20/23 documented as of this encounter Additional Source Comments The information contained in this document represents components of the legal health record. It is not the complete legal health record.[facility]
--- OUTSIDE RECORDS SUMMARY | 2025-09-08 18:10 | XMS_ITS | Encounter Summary ---
Author Organization [facility] Address [address] [facility] [address] [place] [address] Phone Care Team Providers Care Automobile Glass Technician Name Role Phone Frankie Padron MD Primary Care Provider Saniya Tan MD Unavailable Domenic Goldsmith MD, PhD Unavailable [phone] Robert Lomax MD Unavailable [phone] Mary Sanon MD Unavailable Marcy Garvey RN Unavailable [email or web address] Davina Peraza RN Unavailable [email or web address] Davina Peraza RN Unavailable [email or web address] Encounter Details Date Type Department Care Team (Late st Contact Info) Description 08/06/2022 Procedure Pass [facility] [address] [place] [address] Social History Tobacco Use Types Packs/Day Years [...] PM EDT documented as of this encounter Functional Status * Calculated C-SSRS Risk Score (Lifetime/Recent) Answer Date of Assessment Author No Risk Indicated 08/06/2022 6:00 PM EDT Ann Marie Robles, RACHEL * [place] Suicide Severity Rating Scale (Screener/Recent Self-Report) Question Answer Date of Assessment Author 1. Wish to be (Past 1 Month) No 08/06/2022 6:00 PM EDT Ann Marie Robles, RACHEL 2. Non-Specific Active Suicidal Thoughts (Past 1 Month) No 08/06/2022 6:00 PM EDT Ann Marie Robles, RACHEL 6. Suicidal Behavior (Lifetime) No 08/06/2022 6:00 PM EDT Ann Marie Robles, RACHEL documented as of this encounter Plan of Treatment Upcoming Encounters Date Type Department Care Team (Latest Contact Info) Description 02/15/2025 Procedure Pass MRI, [facility] [place] [address] [facility], [address] [place] [address] 08/12/[address], [facility] [place] [address] [facility], [address] [place] [address] 08/12/[address], [facility] [place] [address] [facility], [address] [place] [address] 08/12/2025 Procedure Pass MRI, [facility] [place] [address] [facility], [address] [place] [address] 10/14/2025 1:00 PM EST Office Visit [facility] [address] [facility] 9th [place] [address] Bettina Braden MD [address] [place] [address] MARTÍN@[facility] 10/19/2025 3:00 PM EST Infusion [facility] at [address] [address] Hany, MD Hany 02/06/2026 10:30 AM EDT Blood Draw [facility] Lab [address] [address] Saniya Tan MD [address] [address] DIALLO@[facility] 02/06/2026 11:[address], [facility] General Imaging - [address], [address] [place] [address] Saniya Tan MD [address] [place] [address] DIALLO@[facility] 02/06/2026 12:30 PM EDT Appointment MRI, [facility] - [address], [facility] [address] [place] [address] Saniya Tan MD [address] [place] [address] DIALLO@[facility] 02/07/2026 9:30 AM EDT Appointment MRI, [facility] - [address], [address] [place] [address] Domenic Goldsmith MD, PhD [address] [place] [address] JGIAR@[email or web address] 02/14/2026 11:00 AM EDT Office [facility] 32 [facility], 7th Floor, [address] [place] [address] Saniya Tan MD [address] [address] DIALLO@[facility] 02/14/2026 11:00 AM EDT Office Visit [facility] 32 [facility], 7th Floor, [address] [place] [address] Roxana Ornelas MD [address] [facility] MAY 3 [place] [address] CHIN@[facility] 02/21/2026 10:00 AM EDT Telemedicine - audio only [facility] General & Gastrointestinal Surgery 55 [facility], 4th Floor, [address] [place] [address] Janie Blackmon FNP 55 [facility] 460 [place] [address] [email or web address] g documented as of this encounter Visit Diagnoses Not on filedocumented in this encounter Care Teams Automobile Glass Technician Relationship Specialty Start Date End Date Frankie Padron MD [address] [place] [address] [place] [address] PCP - General Internal Medicine 07/16/19 Saniya Tan MD [address] [facility] Y[address]E [place] [address] DIALLO@[email or web address] Primary Oncologist Medical Oncology 12/22/20 Domenic Goldsmith MD, PhD 55 [facility] [address] [place] [address] [email or web address] Surgical Oncology 01/11/21 Robert Lomax MD [address] [facility] [address] [place] [address] MARCELA@[facility] Cardiothoracic Surgery 07/03/22 08/18/23 Mary Sanon MD [address] [facility] MAY 3 [place] [address] maria [email or web address] Radiation Oncology 07/03/22 Marcy Garvey RN [address] [address] [email or web address] Primary Infusion Nurse 10/23/23 11/19/23 Davina Peraza RN [email or web address] Associate Infusion Nurse 10/29/23 11/19/23 Davina Peraza RN 55 [place] [address] [email or web address] Primary Infusion Nurse 11/20/23 documented as of this encounter Additional Source Comments The information contained in this document represents components of the legal health record. It is not the complete legal health record.[facility]
--- OUTSIDE RECORDS SUMMARY | 2025-09-08 18:10 | XMS_ITS | Encounter Summary ---
Author Organization [facility] Address [address] [place] [address] Phone Care Team Providers Care Stem Dryer Maintainer Name Role Phone Frankie Padron MD Primary Care Provider Saniya Tan MD Unavailable Domenic Goldsmith MD, PhD Unavailable [phone] Robert Lomax MD Unavailable [phone] Mary Sanon MD Unavailable Marcy Garvey RN Unavailable [email or web address] Davina Peraza RN Unavailable [email or web address] Davina Peraza RN Unavailable [email or web address] Encounter Details Date Type Department Care Team (Late st Contact Info) Description 08/13/[address], [facility] - [address], [address] [place] [address] Social History Tobacco Use Types Packs/Day Years [...] Description 02/15/2025 Procedure Pass MRI, [facility] - [place] [address] [facility], [address] [place] [address] 08/12/[address], [facility] - [address], [address] [place] [address] 08/12/[address], [facility] - [address] [facility], [address] [place] [address] 08/12/2025 Procedure Pass MRI, [facility] - [address] [facility], [address] [place] [address] 10/14/2025 1:00 PM EST Office Visit [facility] [address] [facility] 9th [place] [address] Bettina Braden MD [address] [place] [address] MARTÍN@[facility] 10/19/2025 3:00 PM EST Infusion [facility] at [address] [address] Hany Leach MD 02/06/2026 10:30 AM EDT Blood Draw [facility] [address] [address] Saniya Tan MD [address] [place] [address] DIALLO@[facility] 02/06/2026 11:[address], [facility] - [address] [facility], [address] [place] [address] Saniya Tan MD [address] [place] [address] DIALLO@[facility] 02/06/2026 12:30 PM EDT Appointment MRI, [facility] [place] 52 [facility], [address] [place] [address] Saniya Tan MD [address] 7E [place] [address] DIALLO@[facility] 02/07/2026 9:30 AM EDT Appointment MRI, [facility] [place] 52 [facility], [address] [place] [address] Domenic Goldsmith MD, PhD 55 [facility] 7B [place] [address] JIGAR@[email or web address] 02/14/2026 11:00 AM EDT Office Visit [facility] 32 [facility], 7th Floor, [address] [place] [address] Saniya Tan MD [address] [place] [address] 7[address] [place] [address] DIALLO@[facility] 02/14/2026 11:00 AM EDT Office Visit [facility] 32 [facility], 7th Floor, [address] [place] [address] Roxana Ornelas MD 55 [facility] 3 [place] [address] CHIN@[facility] 02/21/2026 10:00 AM EDT Telemedicine - audio only [facility] 55 [facility], 4th Floor, [address] [place] [address] Janie Blackmon FNP 55 [facility] 460 [place] [phone] [email or web address].or g documented as of this encounter Visit Diagnoses Not on filedocumented in this encounter Care Teams Stem Dryer Maintainer Relationship Specialty Start Date End Date Frankie Padron MD [address] [place] [address] [place] [address] PCP - General Internal Medicine 07/16/19 Saniya Tan MD 55 [facility] YA [address] [place], [place] DIALLO@[facility] Primary Oncologist Medical Oncology 12/22/20 Domenic Goldsmith MD, PhD 55 [facility] [place], [place] JIGAR@[email or web address] Surgical Oncology 01/11/21 Robert Lomax MD [facility] [address] [place] [address] MARCELA@[email or web address] Cardiothoracic Surgery 07/03/22 08/18/23 Mary Sanon MD 55 [facility] 3 [place] [address] maria [email or web address] Radiation Oncology 07/03/22 Marcy Garvey RN 55 [facility] 3 [place] [address] [email or web address] Primary Infusion Nurse 10/23/23 11/19/23 Davina Peraza RN Associate Infusion Nurse 10/29/23 11/19/23 Davina Peraza RN 55 [place] [address] [email or web address] Primary Infusion Nurse 11/20/23 documented as of this encounter Additional Source Comments The information contained in this document represents components of the legal health record. It is not the complete legal health record.[facility]
--- OUTSIDE RECORDS SUMMARY | 2025-09-08 18:10 | XMS_ITS | Encounter Summary ---
Author Organization [facility] Address [address] [facility] [address] [place] [address] Phone Care Team Providers Care Staff Certified Nurse Midwife Name Role Phone Frankie Padron MD Primary Care Provider Saniya Tan MD Unavailable Domenic Goldsmith MD, PhD Unavailable [phone] Robert Lomax MD Unavailable [phone] Mary Sanon MD Unavailable Marcy Garvey RN Unavailable [email or web address] Davina Peraza RN Unavailable [email or web address] Davina Peraza RN Unavailable [email or web address] Encounter Details Date Type Department Care Team (Late st Contact Info) Description 10/20/2020 Procedure Pass [facility] Imaging - [place], [facility] [address] [place] [address] Social History Tobacco Use Types Packs/Day Years Used Date Smoking Tobacco: Former Cigarettes 1 49.6 S tarted: 02/11/1976 Smokeless Tobacco: Never Alcohol Use Standard [...] Contact Info) Description 02/15/2025 Procedure Pass MRI, [facility] General Imaging - [place] [address] [facility], [address] [place] [address] 08/12/[address], [facility] General Imaging - [place] [address] [facility], [address] [place] [address] 08/12/[address], [facility] General Imaging - [place] [address] [facility], [address] [place] [address] 08/12/2025 Procedure Pass MRI, [facility] General Imaging - [place] [address] [facility], [address] [place] [address] 10/14/2025 1:00 PM EST Office Visit [facility] 165 [facility] 9th [place] [address] Bettina Braden MD [address] [place] [address] MARTÍN@[facility] 10/19/2025 3:00 PM EST Infusion [facility] at [address] [address] Hany Leach MD 02/06/2026 10:30 AM EDT Blood Draw [facility] Lab [place] [address] [facility] [place] [address] Saniya Tan MD [address] [place] [address] DIALLO@[facility] 02/06/2026 11:[address], [facility] General Imaging - [place] [address] [facility], [address] [place] [address] Saniya Tan MD [address] [place] [address] DIALLO@[facility] 02/06/2026 12:30 PM EDT Appointment MRI, [facility] General Imaging - [place] 52 [facility], [address] [place] [address] Saniya Tan MD 55 [facility] 7E [place] [address] DIALLO@[facility] 02/07/2026 9:30 AM EDT Appointment MRI, [facility] Imaging - [address], [address] [place] [address] Domenic Goldsmith MD, PhD 55 [facility] 7[address] [place] [address] JIGAR@[facility] 02/14/2026 11:00 AM EDT Office Visit [facility] 32 [facility], 7th Floor, [address] [place] [address] Saniya Tan MD [address] [place] [address] 7[address] [place] [address] DIALLO@[facility] 02/14/2026 11:00 AM EDT Office Visit [facility] 32 [facility], 7th Floor, [address] [place] [address] Roxana Ornelas MD 55 [facility] 3 [place] [address] CHIN@[facility] 02/21/2026 10:00 AM EDT Telemedicine - audio only [facility] General & Gastrointestinal Surgery 55 [facility], 4th Floor, [address] [place] [address] Janie Blackmon FNP 55 [facility] 460 [place] [phone] [email or web address] g documented as of this encounter Visit Diagnoses Not on filedocumented in this encounter Care Teams Staff Certified Nurse Midwife Relationship Specialty Start Date End Date Frankie Padron MD [address] [place] [address] [place] [address] PCP - General Internal Medicine 07/16/19 Saniya Tan MD [address] [place], [place] DIALLO@[email or web address] Primary Oncologist Medical Oncology 12/22/20 Domenic Goldsmith MD, PhD [address] [place] [address] JIGAR@[facility] Surgical Oncology 01/11/21 Robert Lomax MD [address] [facility] [address] [place] [address] MARCELA@[facility] Cardiothoracic Surgery 07/03/22 08/18/23 Mary Sanon MD 55 [facility] 3 [place] [address] maria [email or web address] Radiation Oncology 07/03/22 Marcy Garvey RN 55 [facility] 3 [place] [address] [email or web address] Primary Infusion Nurse 10/23/23 11/19/23 Davina Peraza RN Associate Infusion Nurse 10/29/23 11/19/23 Davina Peraza RN 55 [place] [address] [email or web address] Primary Infusion Nurse 11/20/23 documented as of this encounter Additional Source Comments The information contained in this document represents components of the legal health record. It is not the complete legal health record.[facility]
--- OUTSIDE RECORDS SUMMARY | 2025-09-08 18:10 | XMS_ITS | Encounter Summary ---
Author Organization [facility] Address [address] [facility] [address] [place] [address] Phone Care Team Providers Care Cook Fry Name Role Phone Frankie Padron MD Primary Care Provider Saniya Tan MD Unavailable Domenic Goldsmith MD, PhD Unavailable [phone] Robert Lomax MD Unavailable Mary Sanon MD Unavailable Marcy Garvey RN Unavailable [email or web address] Davina Peraza RN Unavailable [email or web address] Davina Peraza RN Unavailable [email or web address] Encounter Details Date Type Department Care Team (Late st Contact Info) Description 02/12/2021 Procedure Pass [facility] Imaging - RF/IR [address] [place] [address] Social History Tobacco Use Types Packs/Day Years [...] Contact Info) Description 02/15/2025 Procedure Pass MRI, [facility] - [place] [address] [facility], [address] [place] [address] 08/12/[address], [facility] [place] [address] [facility], [address] [place] [address] 08/12/[address], [facility] - [place] [address] [facility], [address] [place] [address] 08/12/2025 Procedure Pass MRI, [facility] Imaging - [place] [address] [facility], [address] [place] [address] 10/14/2025 1:00 PM EST Office Visit [facility] [address] [facility] 9th [place] [address] Bettina Braden MD [address] [place] [address] 4 [place] [address] MARTÍN@[facility] 10/19/2025 3:[address] [facility] at [address] [address] Hany Leach MD 02/06/2026 10:30 AM EDT Blood Draw [facility] Lab [address] [place] [address] Saniya Tan MD [address] [place] [address] DIALLO@[facility] 02/06/2026 11:[address], [facility] - [place] [address] [facility], [address] [place] [address] Saniya Tan MD [address] [place] [address] [address] [place] [address] DIALLO@[facility] 02/06/2026 12:30 PM EDT Appointment MRI, [facility] - [place] 52 [facility], [address] [place] [address] Saniya Tan MD 55 [facility] [address] [place] [address] DIALLO@[facility] 02/07/2026 9:30 AM EDT Appointment MRI, [facility] Imaging - [place] [address] [facility], [address] [place] [address] Domenic Goldsmith MD, PhD 55 [facility] [address]B [place] [address] JIGAR@[email or web address] 02/14/2026 11:00 AM EDT Office Visit [facility] [address] [facility], 7th Floor, [address] [place] [address] Saniya Tan MD [address] [place] [address] [address] [place] [address] DIALLO@[facility] 02/14/2026 11:00 AM EDT Office Visit [facility] [address] [facility], 7th Floor, [address] [place] [address] Roxana Ornelas MD 55 [facility] MAY 3 [place] [address] CHIN@[email or web address] 02/21/2026 10:00 AM EDT Telemedicine - audio only [facility] General & Gastrointestinal Surgery 55 [facility], 4th Floor, [address] [place] [address] Janie Blackmon FNP 55 [facility] 460 [place] [phone] [email or web address] g documented as of this encounter Visit Diagnoses Not on filedocumented in this encounter Care Teams Cook Fry Relationship Specialty Start Date End Date Frankie Padron MD [address] [place] [address] [place] [address] PCP - General Internal Medicine 07/16/19 Saniya Tan MD 55 [facility] YA [address] [place] [address] [email or web address] Primary Oncologist Medical Oncology 12/22/20 Domenic Goldsmith MD, PhD [address] [facility] [address] [place] [address] [email or web address] Surgical Oncology 01/11/21 Robert Lomax MD 55 [facility] [address] [place] [address] MARCELA@[email or web address] Cardiothoracic Surgery 07/03/22 08/18/23 Mary Sanon MD 55 [facility] 3 [place] [address] maria [email or web address] Radiation Oncology 07/03/22 Marcy Garvey RN 55 [facility] 3 [place] [address] [email or web address] Primary Infusion Nurse 10/23/23 11/19/23 Davina Peraza RN Associate Infusion Nurse 10/29/23 11/19/23 Davina Peraza RN 55 [place] [address] [email or web address] Primary Infusion Nurse 11/20/23 documented as of this encounter Additional Source Comments The information contained in this document represents components of the legal health record. It is not the complete legal health record.[facility]
--- OUTSIDE RECORDS SUMMARY | 2025-09-08 18:10 | XMS_ITS | Encounter Summary ---
Author Organization [facility] Address [address] [place] [address] Phone Care Team Providers Care Repairer Finished Metal Name Role Phone Frankie Padron MD Primary Care Provider Saniya Tan MD Unavailable Domenic Goldsmith MD, PhD Unavailable [phone] Robert Lomax MD Unavailable [phone] Mary Sanon MD Unavailable [phone] Marcy Garvey RN Unavailable [email or web address] Davina Peraza RN Unavailable [email or web address] Davina Peraza RN Unavailable [email or web address] Encounter Details Date Type Department Care Team (Late st Contact Info) Description 09/04/2021 Procedure Pass Interventional Radiology, [facility] - [address], [address] [place] [address] Social History Tobacco Use Types Packs/Day Years [...] Contact Info) Description 02/15/2025 Procedure Pass MRI, [facility] General Imaging - [address], [address] [place] [address] 08/12/[address], [facility] Imaging - [address], [address] [place] [address] 08/12/[address], [facility] Imaging - [address] [facility], [address] [place] [address] 08/12/2025 Procedure Pass MRI, [facility] Imaging - [address], [address] [place] [address] 10/14/2025 1:00 PM EST Office Visit [facility] [address] [facility] 9th [place] [address] Bettina Braden MD [address] [place] [address] MARTÍN@[facility] 10/19/2025 3:00 PM EST Infusion [facility] Cancer Center at [address] [address] Hany Leach MD 02/06/2026 10:30 AM EDT Blood Draw [facility] Lab [address] [address] Saniya Tan MD [address] [place] [address] DIALLO@[facility] 02/06/2026 11:[address], [facility] Imaging - [address], [address] [place] [address] Saniya Tan MD [address] [place] [address] DIALLO@[facility] 02/06/2026 12:30 PM EDT Appointment MRI, [facility] Imaging - [place] [address] [facility], [address] [place] [address] Saniya Tan MD [address] [facility] 7E [place] [address] DIALLO@[facility] 02/07/2026 9:30 AM EDT Appointment MRI, [facility] Imaging - [place] [address] [facility], [address] [place] [address] Domenic Goldsmith MD, PhD 55 [facility] 7[address] [place] [address] JIGAR@[facility] 02/14/2026 11:00 AM EDT Office Visit [facility] 32 [facility], 7th Floor, [address] [place] [address] Saniya Tan MD [address] [place] [address] [address] [place] [address] DIALLO@[facility] 02/14/2026 11:00 AM EDT Office Visit [facility] 32 [facility], 7th Floor, [address] [place] [address] Roxana Ornelas MD 55 [facility] 3 [place] [address] CHIN@[email or web address] 02/21/2026 10:00 AM EDT Telemedicine - audio only [facility] General & Gastrointestinal Surgery [address] [facility], 4th Floor, [address] [place] [address] Janie Blackmon FNP 55 [facility] 460 [place] [phone] [email or web address] g documented as of this encounter Visit Diagnoses Not on filedocumented in this encounter Care Teams Repairer Finished Metal Relationship Specialty Start Date End Date Frankie Padron MD [address] [place] [address] [place] [address] PCP - General Internal Medicine 07/16/19 Saniya Tan MD 55 [facility] YA [address] [place] [address] DIALLO@[email or web address] Primary Oncologist Medical Oncology 12/22/20 Domenic Goldsmith MD, PhD 55 [facility] [address] [place] [address] JIGAR@[email or web address] Surgical Oncology 01/11/21 Robert Lomax MD 55 [facility] [address] [place] [address] [email or web address]@[email or web address] Cardiothoracic Surgery 07/03/22 08/18/23 Mary Sanon MD 55 [facility] 3 [place] [address] maria [email or web address] Radiation Oncology 07/03/22 Marcy Garvey RN [address] [facility] 3 [place] [address] [email or web address] Primary Infusion Nurse 10/23/23 11/19/23 Davina Peraza RN Associate Infusion Nurse 10/29/23 11/19/23 Davina Peraza RN 55 [place] [address] [email or web address] Primary Infusion Nurse 11/20/23 documented as of this encounter Additional Source Comments The information contained in this document represents components of the legal health record. It is not the complete legal health record.[facility]
--- OUTSIDE RECORDS SUMMARY | 2025-09-08 18:10 | XMS_ITS | Encounter Summary ---
Author Organization [facility] Address [address] [place] [address] Phone Care Team Providers Care Retail Selling Floor Leader Name Role Phone Frankie Padron MD Primary Care Provider Saniya Tan MD Unavailable Domenic Goldsmith MD, PhD Unavailable [phone] Mary Sanon MD Unavailable [phone] Davina Peraza RN Unavailable [email or web address] Encounter Details Date Type Department Care Team (Late st Contact Info) Description 06/29/2024 Procedure Pass MRI, [facility] - [address], [address] [place] [address] Social History Tobacco Use Types [...] Contact Info) Description 02/15/2025 Procedure Pass MRI, [facility] - [address], [address] [place] [address] 08/12/[address], [facility] - [address], [address] [place] [address] 08/12/[address], [facility] - [address], [address] [place] [address] 08/12/2025 Procedure Pass MRI, [facility] - [address] [facility], [address] [place] [address] 10/14/2025 1:00 PM EST Office Visit [facility] [address] 9th [place] [address] Bettina Braden MD 55 [facility] 4 [place] [address] MARTÍN@[facility] 10/19/2025 3:00 PM EST Infusion [facility] [address] [place] [address] Hany Leach MD 02/06/2026 10:30 AM EDT Blood Draw [facility] Lab [address] [place] [address] Saniya Tan MD 55 [facility] YA 7E [place] [address] DIALLO@[email or web address] 02/06/2026 11:[address], [facility] General Imaging - [address], [address] [place] [address] Saniya Tan MD 55 [facility] 7E [place] [address] DIALLO@[facility] 02/06/2026 12:30 PM EDT Appointment MRI, [facility] - [address] [place] [address] Saniya Tan MD 55 [facility] [address] [place] [address] DIALLO@[facility] 02/07/2026 9:30 AM EDT Appointment MRI, [facility] - [address], [address] [place] [address] Domenic Goldsmith MD, PhD 55 [facility] 7[address] [place] [address] [email or web address] 02/14/2026 11:00 AM EDT Office Visit [facility] 32 [facility], 7th Floor, [address] [place] [address] Saniya Tan MD 55 [facility] [address] [place] [address] DIALLO@[facility] 02/14/2026 11:00 AM EDT Office Visit [facility] [address] [facility], 7th Floor, [address] [place] [address] Roxana Ornelas MD 55 [facility] 3 [place] [address] CHIN@[email or web address] 02/21/2026 10:00 AM EDT Telemedicine - audio only [facility] General & Gastrointestinal Surgery 55 [facility], 4th Floor, [address] [place] [address] Janie Blackmon FNP 55 [facility] 460 [place] [phone] [email or web address] g documented as of this encounter Visit Diagnoses Not on filedocumented in this encounter Care Teams Retail Selling Floor Leader Relationship Specialty Start Date End Date Frankie Padron MD [address] [place] [address] [place] [address] PCP - General Internal Medicine 07/16/19 Saniya Tan MD 55 [facility] [address]E [place] [address] DIALLO@[facility] Primary Oncologist Medical Oncology 12/22/20 Domenic Goldsmith MD, PhD [address] [place] [address] [address] [place] [address] JIGAR@[facility] Surgical Oncology 01/11/21 Mary Sanon MD 55 [facility] 3 [place] [address] maria [email or web address] u Radiation Oncology 07/03/22 Davina Peraza, RACHEL 55 [place] [address] [email or web address] Primary Infusion Nurse 11/20/23 documented as of this encounter Additional Source Comments The information contained in this document represents components of the legal health record. It is not the complete legal health record.[facility]
--- OUTSIDE RECORDS SUMMARY | 2025-09-08 18:10 | XMS_ITS | Encounter Summary ---
Author Organization [facility] Address [address] [facility] [address] [place] [address] Phone Care Team Providers Care Rn New Graduate Name Role Phone Frankie Padron MD Primary Care Provider Saniya Tan MD Unavailable Domenic Goldsmith MD, PhD Unavailable Robert Lomax MD Unavailable Mary Sanon MD Unavailable [phone] Marcy Garvey RN Unavailable [email or web address] Davina Peraza RN Unavailable [email or web address] Davina Peraza RN Unavailable [email or web address] Encounter Details Date Type Department Care Team (Late st Contact Info) Description 10/25/2019 Transcribe Orders [facility] [address] [place] [address] Isabel Sequeira CNP [address] [address] [email or web address] Rectal cancer (Primary Dx) Social History Tobacco Use Types Packs/Day Years Used Date Smoking Tobacco: Every Day Cigarettes Smokeless Tobacco: Never Alcohol Use Standard Drinks/Week [...] Description 02/15/2025 Procedure Pass MRI, [facility] Imaging - [address], [address] [place] [address] 08/12/[address], [facility] - [address] [facility], [address] [place] [address] 08/12/[address], [facility] General Imaging - [address] [facility], [address] [place] [address] 08/12/2025 Procedure Pass MRI, [facility] - [address] [facility], [address] [place] [address] 10/14/2025 1:00 PM EST Office Visit [facility] [address] 9th [place] [address] Bettina Braden MD [address] [place] [address] [email or web address]@[email or web address] 10/19/2025 3:00 PM EST Infusion [facility] at [address] [address] Hany Leach MD 02/06/2026 10:30 AM EDT Blood Draw [facility] Lab [address] [place] [address] Saniya Tan MD [address] [place] [address] [email or web address] 02/06/2026 11:[address], [facility] - [address] [facility], [address] [place] [address] Saniya Tan MD [address] [place] [address] DIALLO@[email or web address] 02/06/2026 12:30 PM EDT Appointment MRI, [facility] [place] [address] [facility], [address] [place] [address] Saniya Tan MD 55 [facility] [address] [place] [address] [email or web address] 02/07/2026 9:30 AM EDT Appointment MRI, [facility] - [address], [address] [place] [address] Domenic Goldsmith MD, PhD 55 [facility] [address] [place] [address] [email or web address] 02/14/2026 11:00 AM EDT Office [facility] 32 [facility], 7th Floor, [address] [place] [address] Saniya Tan MD 55 [facility] [address] [place] [address] DIALLO@[email or web address] 02/14/2026 11:00 AM EDT Office Visit [facility] 32 [facility], 7th Floor, [address] [place] [address] Roxana Ornelas MD 55 [facility] 3 [place] [address] [email or web address] 02/21/2026 10:00 AM EDT Telemedicine - audio only [facility] General & Gastrointestinal Surgery 55 [facility], 4th Floor, [address] [place] [address] Janie Blackmon FNP 55 [facility] 460 [place] [address] [email or web address] documented as of this encounter Results * (ABNORMAL) Phosphorus (10/25/2019 11:52 AM EST) PHOSPHORUS 2.3(L) 2.7 - 4.5 mg/dL [facility] Blood 10/25/2019 11:5 2 AM EST 10/25/2019 12:20 PM EST us Isabel Sequeira [facility] LAB BLOOD BKR ORDERABLE S Final Result Performing Organization Address [facility]/ZIP Co de Phone Number [facility] [address] [place] [phone] * Magnesium (10/25/2019 11:52 AM EST) Pathologist [facility] MAGNESIUM 1.7 1.3 - 2.7 mg/dL [facility] Blood 10/25/2019 11:5 2 AM EST 10/25/2019 12:20 PM EST us Isabel Sequeira [facility] BLOOD BKR ORDERABLE S Final Result Performing Organization Address [facility] Co de Phone Number [facility] [address] [place] [address] * (ABNORMAL) Comprehensive metabolic panel (10/25/2019 11:52 AM EST) SODIUM 137 136 - 145 mmol/L [facility] POTASSIUM 3.3(L) 3.5 - 5.2 mmol/L [facility] CHLORIDE 100 95 - 106 mmol/L [facility] CO2 25 20 - 31 mmol/L [facility] BUN 14 9 - 23 mg/dL [facility] CREATININE 0.60 0.50 - 1.30 mg/dL [facility] GLUCOSE 108(H) 74 - 106 mg/dL [facility] ALBUMIN 3.5 3.5 - 4.8 g/dL [facility] TOTAL PROTEIN 6.7 5.7 - 8.2 g/dL [facility] CALCIUM 9.0 8.7 - 10.4 mg/dL [facility] ALKALINE PHOSPHATASE 55 27 - 129 U/L [facility] TOTAL BILIRUBIN 0.2 0.0 - 1.0 mg/dL [facility] AST 10 6 - 40 U/L [facility] ALT 8(L) 10 - 49 U/L [facility] GLOBULIN 3.2 1.9 - 4.1 g/dL [facility] EGFR 96 >60 mL/min/1.7 3m2 [facility] Comment:If patient is black, multiply result by 1.159. Estimated glomerular filtration rate calculated using the CKD-EPI equation. ANION GAP 12 3 - 17 mmol/L [facility] Blood 10/25/2019 11:5 2 AM EST 10/25/2019 12:20 PM EST us Isabel Sequeira [employer] LAB BLOOD BKR ORDERABLE S Final Result Performing Organization Address City/State/[facility] Co de Phone Number [address] [address] * (ABNORMAL) CBC and differential (10/25/2019 11:52 AM EST) WBC 5.06 4.0 - 11.0 K/uL [facility] RBC 3.21(L) 3.9 - 5.03 M/uL [facility] HGB 9.7(L) 12 - 15.5 g/dL [facility] HCT 27.6(L) 34.9 - 44.5 % [facility] PLT 275 135 - 400 K/uL [facility] MCV 86.0 80 - 100 fL [facility] MCH 30.2 27.0 - 34.0 pg [facility] MCHC 35.1 31.5 - 36.5 g/dL [facility] RDW 16.8(H) 11.9 - 14.8 % [facility] MPV 8.4(L) 9.6 - 12 fl [facility] NRBC 0.00 0 /100 WBCs [facility] DIFF METHOD Auto [facility] NEUTS 75.2 % [facility] LYMPHS 3.8 % [facility] MONOS 16.0 % [facility] EOS 4.0 % [facility] BASOS 0.2 % [facility] Granulocytes, immature (%) 0.8 % [facility] ABSOLUTE NEUTS 3.81 1.8 - 7.5 K/uL [facility] ABSOLUTE LYMPHS 0.19(L) 1 - 4.8 K/uL [facility] ABSOLUTE MONOS 0.81 0.1 - 0.9 K/uL [facility] ABSOLUTE EOS 0.20 0 - 0.4 K/uL [facility] ABSOLUTE BASOS 0.01 0 - 0.2 K/uL [facility] Granulocytes, immature 0.04 0 - 0.1 K/uL [facility] Blood 10/25/2019 11:5 2 AM EST 10/25/2019 12:21 PM EST us Isabel Sequeira [employer] LAB BLOOD BKR ORDERABLE S Final Result Performing Organization Address City/State/[facility] Co de Phone Number [facility] [address] [place] [address] documented in this encounter Visit Diagnoses Diagnosis Rectal cancer- Primary Malignant neoplasm of rectum documented in this encounter Additional Health Concerns Infection Onset Date Last Indicated Resolved Time Influenza 11/01/2019 11/01/2019 11/08/2019 1:23 AM EST documented as of this encounter Care Teams Rn New Graduate Relationship Specialty Start Date End Date Frankie Padron MD [address] [place] [address] Dr UREÑA [address] [place] [address] PCP - General Internal Medicine 07/16/19 Saniya Tan MD 55 [facility] [address] [place] [address] [email or web address] Primary Oncologist Medical Oncology 12/22/20 Domenic Glodsmith MD, PhD [facility] [address] [place] [address] [email or web address] Surgical Oncology 01/11/21 Robert Lomax MD [address] [place] [address] [email or web address] Cardiothoracic Surgery 07/03/22 08/18/23 Mary Sanon MD [address] [place] [address] maria [email or web address] Radiation Oncology 07/03/22 Marcy Garvey RN [address] [place] [address] [email or web address] Primary Infusion Nurse 10/23/23 11/19/23 Davina Peraza RN [email or web address] Associate Infusion Nurse 10/29/23 11/19/23 Davina Peraza RN [address] [place] [address] [email or web address] Primary Infusion Nurse 11/20/23 documented as of this encounter Additional Source Comments The information contained in this document represents components of the legal health record. It is not the complete legal health record.[facility]
--- OUTSIDE RECORDS SUMMARY | 2025-09-08 18:10 | XMS_ITS | Encounter Summary ---
Author Organization [facility] Address [address] [facility] [address] [place] [address] Phone Care Team Providers Care Live In Housekeeper Nanny Name Role Phone Frankie Padron MD Primary Care Provider Saniya Tan MD Unavailable Domenic Goldsmith MD, PhD Unavailable [phone] Robert Lomax MD Unavailable Mary Sanon MD Unavailable Marcy Garvey RN Unavailable [email or web address] Davina Peraza RN Unavailable [email or web address] Davina Peraza RN Unavailable [email or web address] Encounter Details Date Type Department Care Team (Late st Contact Info) Description 02/12/2021 Procedure Pass [facility] END[facility]PT [address] [address] Social History Tobacco Use Types Packs/Day Years [...] Contact Info) Description 02/15/2025 [facility] Pass [facility] [place] [address] [facility], [address] [place] [address] 08/12/[address] [place] [address] [facility], [address] [place] [address] 08/12/[address] [place] [address] [facility], [address] [place] [address] 08/12/2025 Procedure Pass MRI, [facility] [place] [address] [facility], [address] [place] [address] 10/14/2025 1:00 PM EST Office Visit [facility] [address] [facility] 9th [place] [address] Bettina Braden MD [address] [place] [address] [email or web address] 10/19/2025 3:00 PM EST Infusion [facility] at [address] [address] Hany Leach MD 02/06/2026 10:30 AM EDT Blood Draw [facility] [place] [address] [facility] [place] [address] Saniya Tan MD [address] [place] [address] DIALLO@[email or web address] 02/06/2026 11:[address] [place] [address] [facility], [address] [place] [address] Saniya Tan MD [address] [place] [address] DIALLO@[email or web address] 02/06/2026 12:30 PM EDT Appointment MRI, [facility] [place] 52 [facility], [address] [place] [address] Saniya Tan MD 55 [facility] [address] [place] [address] [email or web address]@[email or web address] 02/07/2026 9:30 AM EDT Appointment MRI, [facility] - [address], [address] [place] [address] Domenic Goldsmith MD, PhD 55 [facility] [address] [place] [address] [email or web address] 02/14/2026 11:00 AM EDT Office Visit [facility] 32 [facility], 7th Floor, [address] [place] [address] Saniya Tan MD [address] [place] [address] [address] [place] [address] DIALLO@[email or web address] 02/14/2026 11:00 AM EDT Office Visit [facility] [address] [facility], 7th Floor, [address] [place] [address] Roxana Ornelas MD 55 [facility] 3 [place] [address] CHIN@[email or web address] 02/21/2026 10:00 AM EDT Telemedicine - audio only [facility] General & Gastrointestinal Surgery [address] [facility], 4th Floor, [address] [place] [address] Janie Blackmon FNP 55 [facility] 460 [place] [phone] [email or web address] g documented as of this encounter Visit Diagnoses Not on filedocumented in this encounter Care Teams Live In Housekeeper Nanny Relationship Specialty Start Date End Date Frankie Padron MD [address] [place] [address] [place] [address] PCP - General Internal Medicine 07/16/19 Saniya Tan MD [address] [place], [place] [email or web address] Primary Oncologist Medical Oncology 12/22/20 Domenic Goldsmith MD, PhD [address] [place] [address] [email or web address] Surgical Oncology 01/11/21 Robert Lomax MD [address] [facility] [address] [place] [address] [email or web address] Cardiothoracic Surgery 07/03/22 08/18/23 Mary Sanon MD 55 [facility] 3 [place] [address] maria [email or web address] Radiation Oncology 07/03/22 Marcy Garvey RN 55 [facility] 3 [place] [address] [email or web address] Primary Infusion Nurse 10/23/23 11/19/23 Davina Peraza RN Associate Infusion Nurse 10/29/23 11/19/23 Davina Peraza RN 55 [place] [address] [email or web address] Primary Infusion Nurse 11/20/23 documented as of this encounter Additional Source Comments The information contained in this document represents components of the legal health record. It is not the complete legal health record.[facility]
--- OUTSIDE RECORDS SUMMARY | 2025-09-08 18:10 | XMS_ITS | Encounter Summary ---
Author Organization [facility] Address [address] [facility] [address] [place] [address] Phone Care Team Providers Care Grinding Machine Operator Name Role Phone Frankie Padron MD Primary Care Provider Saniya Tan MD Unavailable Domenic Goldsmith MD, PhD Unavailable [phone] Robert Lomax MD Unavailable Mary Sanon MD Unavailable Marcy Garvey RN Unavailable [email or web address] Davina Peraza RN Unavailable [email or web address] Davina Peraza RN Unavailable [email or web address] Encounter Details Date Type Department Care Team (Late st Contact Info) Description 06/16/[address], [facility] - [address], [address] [place] [address] Social History Tobacco Use Types Packs/Day Years [...] Contact Info) Description 02/15/2025 Procedure Pass MRI, [facility] - [address], [address] [place] [address] 08/12/[address], [facility] - [address] [facility], [address] [place] [address] 08/12/[address], [facility] - [address], [address] [place] [address] 08/12/2025 Procedure Pass MRI, [facility] - [address] [facility], [address] [place] [address] 10/14/2025 1:00 PM EST Office Visit [facility] [address] 9th [place] [address] Bettina Braden MD 55 [facility] 4 [place] [address] [email or web address]@[facility] 10/19/2025 3:00 PM EST Infusion [facility] [place] [address] [place] [address] Hany Leach MD 02/06/2026 10:30 AM EDT Blood Draw [facility] [place] [address] [place] [address] Saniya Tan MD 55 [facility] YA [address]E [place] [address] DIALLO@[facility] 02/06/2026 11:[address], [facility] - [address], [address] [place] [address] Saniya Tan MD 55 [facility] [address] [place] [address] [email or web address]@[facility] 02/06/2026 12:30 PM EDT Appointment MRI, [facility] - [address], [address] [place] [address] Saniya Tan MD 55 [facility] [address] [place] [address] [email or web address]@[facility] 02/07/2026 9:30 AM EDT Appointment MRI, [facility] - [address], [address] [place] [address] Domenic Goldsmith MD, PhD [facility] [address] [place] [address] [email or web address] 02/14/2026 11:00 AM EDT Office Visit [facility] 32 [facility], 7th Floor, [address] [place] [address] Saniya Tan MD 55 [facility] [address] [place] [address] DIALLO@[facility] 02/14/2026 11:00 AM EDT Office Visit [facility] [address] [facility], 7th Floor, [address] [place] [address] Roxana Ornelas MD 55 [facility] 3 [place] [address] CHIN@[email or web address] 02/21/2026 10:00 AM EDT Telemedicine - audio only [facility] General & Gastrointestinal Surgery 55 [facility], 4th Floor, [address] [place] [address] Janie Blackmon FNP 55 [facility] 460 [place] [phone] [email or web address] g documented as of this encounter Visit Diagnoses Not on filedocumented in this encounter Care Teams Grinding Machine Operator Relationship Specialty Start Date End Date Frankie Padron MD [address] [place] [address] [place] [address] PCP - General Internal Medicine 07/16/19 Saniya Tan MD 55 [facility] [address] [place] [address] [email or web address] Primary Oncologist Medical Oncology 12/22/20 Domenic Goldsmith MD, PhD [facility] [address] [place] [address] [email or web address] Surgical Oncology 01/11/21 Robert Lomax MD [address] [facility] [address] [place] [address] [email or web address]@[email or web address] Cardiothoracic Surgery 07/03/22 08/18/23 Mary Sanon MD 55 [facility] 3 [place] [address] maria [email or web address] Radiation Oncology 07/03/22 Marcy Garvey RN 55 [facility] MAY 3 [place] [address] [email or web address] Primary Infusion Nurse 10/23/23 11/19/23 Davina Peraza RN Associate Infusion Nurse 10/29/23 11/19/23 Dvaina Peraza, RACHEL [address] [place] [address] [email or web address] Primary Infusion Nurse 11/20/23 documented as of this encounter Additional Source Comments The information contained in this document represents components of the legal health record. It is not the complete legal health record.[facility]
--- OUTSIDE RECORDS SUMMARY | 2025-09-08 18:10 | XMS_ITS | Encounter Summary ---
Author Organization [facility] Address [address] [place] [address] Phone Care Team Providers Care Director Mortgage Name Role Phone Frankie Padron MD Primary Care Provider Saniya Tan MD Unavailable Domenic Goldsmith MD, PhD Unavailable [phone] Mary Sanon MD Unavailable [phone] Davina Peraza RN Unavailable [email or web address] Encounter Details Date Type Department Care Team (Late st Contact Info) Description 06/29/[address], [facility] Imaging - [address], [address] [place] [address] Social History Tobacco Use Types [...] Contact Info) Description 02/15/2025 Procedure Pass MRI, [facility] Imaging - [address], [address] [place] [address] 08/12/[address], [facility] Imaging - [address], [address] [place] [address] 08/12/[address], [facility] Imaging - [address], [address] [place] [address] 08/12/2025 Procedure Pass MRI, [facility] Imaging - [address] [facility], [address] [place] [address] 10/14/2025 1:00 PM EST Office Visit [facility] [address] 9th [place] [address] Bettina Braden MD 55 [facility] 4 [place] [address] MARTÍN@[email or web address] 10/19/2025 3:00 PM EST Infusion [facility] [place] [address] [place] [address] Hany Leach MD 02/06/2026 10:30 AM EDT Blood Draw [facility] Lab [address] [place] [address] Saniya Tan MD 55 [facility] YA [address] [place] [address] DIALLO@[email or web address] 02/06/2026 11:[address], [facility] Imaging - [address], [address] [place] [address] Saniya Tan MD 55 [facility] [address] [place] [address] DIALLO@[facility] 02/06/2026 12:30 PM EDT Appointment MRI, [facility] Imaging - [address], [address] [place] [address] Saniya Tan MD 55 [facility] [address] [place] [address] DIALLO@[facility] 02/07/2026 9:30 AM EDT Appointment MRI, [facility] Imaging - [address], [address] [place] [address] Domenic Goldsmith MD, PhD 55 [facility] [address] [place] [address] [email or web address] 02/14/2026 11:00 AM EDT Office Visit [facility] [address] [facility], 7th Floor, [address] [place] [address] Saniya Tan MD 55 [facility] [address] [place] [address] DIALLO@[facility] 02/14/2026 11:00 AM EDT Office Visit [facility] [address] [facility], 7th Floor, [address] [place] [address] Roxana Ornelas MD 55 [facility] 3 [place] [address] CHIN@[email or web address] 02/21/2026 10:00 AM EDT Telemedicine - audio only [facility] General & Gastrointestinal Surgery 55 [facility], 4th Floor, [address] [place] [address] Janie Blackmon FNP 55 [facility] 460 [place] [phone] [email or web address] g documented as of this encounter Visit Diagnoses Not on filedocumented in this encounter Care Teams Director Mortgage Relationship Specialty Start Date End Date Frankie Padron MD [address] [place] [address] [place] [address] PCP - General Internal Medicine 07/16/19 Saniya Tan MD 55 [facility] [address] [place] [address] DIALLO@[email or web address] Primary Oncologist Medical Oncology 12/22/20 Domenic Goldsmith MD, PhD [address] [place] [address] [address] [place] [address] JIGAR@[email or web address] Surgical Oncology 01/11/21 Mary Sanon MD 55 [facility] 3 [place] [address] maria [email or web address] u Radiation Oncology 07/03/22 Davina Peraza, RACHEL 55 [place] [address] [email or web address] Primary Infusion Nurse 11/20/23 documented as of this encounter Additional Source Comments The information contained in this document represents components of the legal health record. It is not the complete legal health record.[facility]
--- OUTSIDE RECORDS SUMMARY | 2025-09-08 18:10 | XMS_ITS | Encounter Summary ---
Author Organization [facility] Address [address] [place] [address] Phone Care Team Providers Care Help Desk Specialist Name Role Phone Frankie Padron MD Primary Care Provider Saniya Tan MD Unavailable Domenic Goldsmith MD, PhD Unavailable [phone] Mary Sanon MD Unavailable [phone] Marcy Garvey RN Unavailable [email or web address] Davina Peraza RN Unavailable [email or web address] Davina Peraza RN Unavailable [email or web address] Encounter Details Date Type Department Care Team (Late st Contact Info) Description 10/14/2023 Procedure Pass Interventional Radiology, [facility] - [address], [address] [place] [id number] Social History Tobacco Use Types Packs/Day Years [...] MRI, [facility] - [place] [address] [facility], [address] [place] [address] 08/12/[address], [facility] - [place] [address] [facility], [address] [place] [address] 08/12/[address], [facility] Imaging - [address] [facility], [address] [place] [address] 08/12/2025 Procedure Pass MRI, [facility] Imaging - [address] [facility], [address] [place] [address] 10/14/2025 1:00 PM EST Office Visit [facility] [address] 9th [place] [address] Bettina Braden MD [address] [place] [address] 4 [place] [address] MARTÍN@[facility] 10/19/2025 3:[address] [facility] at [address] [address] Unknown, MD Hany 02/06/2026 10:30 AM EDT Blood Draw [facility] [address] [place] [address] Saniya Tan MD 55 [facility] 7E [place] [address] DIALLO@[facility] 02/06/2026 11:[address], [facility] Imaging - [address], [address] [place] [address] Saniya Tan MD 55 [facility] 7E [place] [address] DIALLO@[facility] 02/06/2026 12:30 PM EDT Appointment MRI, [facility] Imaging - [address], [address] [place] [address] Saniya Tan MD [address] [address] DIALLO@[facility] 02/07/2026 9:30 AM EDT Appointment MRI, [facility] Imaging - [address], [address] [place] [address] Domenic Goldsmith MD, PhD 55 [facility] 7B [place] [address] [email or web address]@[email or web address] 02/14/2026 11:00 AM EDT Office Visit [facility] 32 [facility], 7th Floor, [address] [place] [address] Saniya Tan MD [address] [place] [address] 7[address] [place] [address] DIALLO@[facility] 02/14/2026 11:00 AM EDT Office Visit [facility] 32 [facility], 7th Floor, [address] [place] [address] Roxana Ornelas MD 55 [facility] 3 [place] [address] CHIN@[email or web address] 02/21/2026 10:00 AM EDT Telemedicine - audio only [facility] General & Gastrointestinal Surgery 55 [facility], 4th Floor, [address] [place] [address] Janie Blackmon, DREDGE WORKER 55 [facility] 460 [place] [phone] [email or web address] g documented as of this encounter Visit Diagnoses Not on filedocumented in this encounter Care Teams Help Desk Specialist Relationship Specialty Start Date End Date Frankie Padron MD [address] [place] [address] [place] [address] PCP - General Internal Medicine 07/16/19 Saniya Tan MD [address] [place] [address] [address] [place], [place] [email or web address] jose angel Primary Oncologist Medical Oncology 12/22/20 Domenic Goldsmith MD, PhD [address] [place] [address] 7[address] [place] [address] [email or web address] u Surgical Oncology 01/11/21 Mary Sanon MD [address] [place] [address] 3 [place] [address] maria [email or web address] Radiation Oncology 07/03/22 Marcy Garvey RN 55 [facility] 3 [place] [address] [email or web address] Primary Infusion Nurse 10/23/23 11/19/23 Davina Peraza RN Associate Infusion Nurse 10/29/2311/03 Davina Peraza RN 55 [place] [address] [email or web address] Primary Infusion Nurse 11/20/23 documented as of this encounter Additional Source Comments The information contained in this document represents components of the legal health record. It is not the complete legal health record.[facility]
--- OUTSIDE RECORDS SUMMARY | 2025-09-08 18:10 | XMS_ITS | Encounter Summary ---
Author Organization [facility] Address [address] [place] [address] Phone Care Team Providers Care Services Rep Name Role Phone Frankie Padron MD Primary Care Provider Saniya Tan MD Unavailable Domenic Goldsmith MD, PhD Unavailable [phone] Mary Sanon MD Unavailable [phone] Davina Peraza RN Unavailable [email or web address] Encounter Details Date Type Department Care Team (Late st Contact Info) Description 05/04/2024 Procedure Pass [facility] Imaging - RF/IR [address] [place] [address] Social History Tobacco Use Types Packs/Day Years [...] [facility] Imaging - [address] [facility], [address] [place] [address] 08/12/[address], [facility] - [place] 52 [facility], [address] [place] [address] 08/12/[address], [facility] - [place] [address] [facility], [address] [place] [address] 08/12/2025 Procedure Pass MRI, [facility] Imaging - [address] [facility], [address] [place] [address] 10/14/2025 1:00 PM EST Office Visit [facility] [address] 9th [place] [address] Bettina Braden MD [address] [place] [address] MARTÍN@[facility] 10/19/2025 3:00 PM EST Infusion [facility] Center at [address] [address] Hany Leach MD 02/06/2026 10:30 AM EDT Blood Draw [facility] [place] 52 [facility] [place] [address] Saniya Tan MD [address] [place] [address] DIALLO@[facility] 02/06/2026 11:[address], [facility] Imaging - [address] [facility], [address] [place] [address] Saniya Tan MD [address] [place] [address] DIALLO@[facility] 02/06/2026 12:30 PM EDT Appointment MRI, [facility] Imaging - [place] 52 [facility], [address] [place] [address] Saniya Tan MD [address] [address] DIALLO@[facility] 02/07/2026 9:30 AM EDT Appointment MRI, [facility] Imaging - [address], [address] [place] [address] Domenic Goldsmith MD, PhD [address] [address] JIGAR@[facility] 02/14/2026 11:00 AM EDT Office Visit [facility] [address] [facility], 7th Floor, [address] [place] [address] Saniya Tan MD [address] [address] DIALLO@[facility] 02/14/2026 11:00 AM EDT Office Visit [facility] [address] [facility], 7th Floor, [address] [place] [address] Roxana Ornelas MD 55 [facility] 3 [place] [address] CHIN@[facility] 02/21/2026 10:00 AM EDT Telemedicine - audio only [facility] General & Gastrointestinal Surgery 55 [facility], 4th Floor, [address] [place] [address] Janie Blackmon FNP 55 [facility] 460 [place] [address] [email or web address] g documented as of this encounter Visit Diagnoses Not on filedocumented in this encounter Care Teams Services Rep Relationship Specialty Start Date End Date Frankie Padron MD [address] [place] [address] [place] [address] PCP - General Internal Medicine 07/16/19 Saniya Tan MD [address] [facility] [address] [place] [address] DIALLO@[facility] Primary Oncologist Medical Oncology 12/22/20 Domenic Goldsmith MD, PhD [address] [facility] [address] [place] [address] JIGAR@[facility] Surgical Oncology 01/11/21 Mary Sanon MD 55 [facility] 3 [place] [address] maria [email or web address] Radiation Oncology 07/03/22 Davina Peraza RN 55 [place] [address] [email or web address] Primary Infusion Nurse 11/20/23 documented as of this encounter Additional Source Comments The information contained in this document represents components of the legal health record. It is not the complete legal health record.[facility]
--- OUTSIDE RECORDS SUMMARY | 2025-09-08 18:10 | XMS_ITS | Encounter Summary ---
Author Organization [facility] Address [address] [employer] [address] [facility] [address] [place] [address] Phone Care Team Providers Care Photographer Aerial Name Role Phone Frankie Padron MD Primary Care Provider Saniya Tan MD Unavailable Domenic Goldsmith MD, PhD Unavailable [phone] Robert Lomax MD Unavailable [phone] Mary Sanon MD Unavailable [phone] Marcy Garvey RN Unavailable [email or web address] Davina Peraza RN Unavailable [email or web address] Davina Peraza RN Unavailable [email or web address] Encounter Details Date Type Department Care Team (Late st Contact Info) Description 07/10/2022 Procedure Pass [facility], [address] [address] Social History Tobacco Use Types Packs/Day Years [...] Contact Info) Description 02/15/2025 [facility] [place] [address] [facility], [address] [place] [address] 08/12/[address] - [address] [facility], [address] [place] [address] 08/12/[address] [place] [address] [facility], [address] [place] [address] 08/12/2025 Procedure Pass MRI, [facility] - [address] [facility], [address] [place] [address] 10/14/2025 1:00 PM EST Office Visit [facility] [address] [facility] 9th [place] [address] Bettina Braden MD [address] [place] [address] MARTÍN@[facility] 10/19/2025 3:00 PM EST Infusion [facility] Center at [address] [address] Hany Leach MD 02/06/2026 10:30 AM EDT Blood Draw [facility] Lab [address] [address] Saniya Tan MD [address] [place] [address] DIALLO@[facility] 02/06/2026 11:[address] - [address] [facility], [address] [place] [address] Saniya Tan MD [address] [place] [address] DIALLO@[facility] 02/06/2026 12:30 PM EDT Appointment MRI, [facility] - [place] 52 [facility], [address] [place] [address] Saniya Tan MD 55 [facility] 7E [place] [address] DIALLO@[facility] 02/07/2026 9:30 AM EDT Appointment MRI, [facility] Imaging - [address], [address] [place] [address] Domenic Goldsmith MD, PhD 55 [facility] 7B [place] [address] JIGAR@[facility] 02/14/2026 11:00 AM EDT Office Visit [facility] 32 [facility], 7th Floor, [address] [place] [address] Saniya Tan MD [address] [place] [address] 7[address] [place] [address] DIALLO@[facility] 02/14/2026 11:00 AM EDT Office Visit [facility] 32 [facility], 7th Floor, [address] [place] [address] Roxana Ornelas MD [address] [place] [address] MAY 3 [place] [address] CHIN@[email or web address] 02/21/2026 10:00 AM EDT Telemedicine - audio only [facility] General & Gastrointestinal Surgery [address] [facility], 4th Floor, [address] [place] [address] Janie Blackmon FNP 55 [facility] 460 [place] [phone] [email or web address] g documented as of this encounter Visit Diagnoses Not on filedocumented in this encounter Care Teams Photographer Aerial Relationship Specialty Start Date End Date Frankie Padron MD [address] [place] [address] [place] [address] PCP - General Internal Medicine 07/16/19 Saniya Tan MD 55 [facility] YA 7[address] [place], [place] DIALLO@[email or web address] Primary Oncologist Medical Oncology 12/22/20 Domenic Goldsmith MD, PhD [address] [facility] [address] [place] JIGAR@[email or web address] Surgical Oncology 01/11/21 Robert Lomax MD [address] [facility] [address] [place] [address] MARCELA@[facility] Cardiothoracic Surgery 07/03/22 08/18/23 Mary Sanon MD 55 [facility] 3 [place] [address] maria [email or web address] Radiation Oncology 07/03/22 Marcy Garvey RN 55 [facility] 3 [place] [address] [email or web address] Primary Infusion Nurse 10/23/23 11/19/23 Davina Peraza RN Associate Infusion Nurse 10/29/23 11/19/23 Davina Peraza RN 55 [place] [address] [email or web address] Primary Infusion Nurse 11/20/23 documented as of this encounter Additional Source Comments The information contained in this document represents components of the legal health record. It is not the complete legal health record.[facility]
--- OUTSIDE RECORDS SUMMARY | 2025-09-08 18:10 | XMS_ITS | Encounter Summary ---
Author Organization [facility] Address 399 [facility] [address] [place] [address] Phone Care Team Providers Care Electronic Tech Name Role Phone Frankie Padron MD Primary Care Provider Saniya Tan MD Unavailable Domenic Goldsmith MD, PhD Unavailable [phone] Mary Sanon MD Unavailable [phone] Davina Peraza RN Unavailable [email or web address] Encounter Details Date Type Department Care Team (Late st Contact Info) Description 12/04/2023 Procedure Pass [facility], [place] [address] [facility], 2nd [place] [address] Social History Tobacco Use Types Packs/Day Years [...] Description 02/15/2025 Procedure Pass MRI, [facility] [place] [facility], [address] [place] [address] 08/12/[address], [facility] [place] [address] [facility], [address] [place] [address] 08/12/[address], [facility] [place] 52 [facility], [address] [place] [address] 08/12/2025 Procedure Pass MRI, [facility] - [address] [facility], [address] [place] [address] 10/14/2025 1:00 PM EST Office Visit [facility] [address] [facility] 9th [place] [address] Bettina Braden MD 55 [facility] 4 [place] [address] MARTÍN@[facility] 10/19/2025 3:00 PM EST Infusion [facility] at [address] [address] Hany, Hany, 02/06/2026 10:30 AM EDT Blood Draw [facility] [place] [address] [place] [address] Saniya Tan MD 55 [facility] 7E [place] [address] DIALLO@[facility] 02/06/2026 11:[address], [facility] - [address] [facility], [address] [place] [address] Saniya Tan MD 55 [facility] 7E [place] [address] DIALLO@[facility] 02/06/2026 12:30 PM EDT Appointment MRI, [facility] - [address], [address] [place] [address] Saniya Tan MD 55 [facility] 7E [place] [address] DIALLO@[facility] 02/07/2026 9:30 AM EDT Appointment MRI, [facility] - [address], [address] [place] [address] Domenic Goldsmith MD, PhD 55 [facility] 7B [place] [address] MQJUNIOR@[facility] 02/14/2026 11:00 AM EDT Office Visit [facility] [address] [facility], 7th Floor, [address] [place] [address] Saniya Tan MD 55 [facility] 7E [place] [address] DIALLO@[facility] 02/14/2026 11:00 AM EDT Office Visit [facility] [address] [facility], 7th Floor, [address] [place] [address] Roxana Ornelas MD 55 [facility] 3 [place] [address] CHIN@[facility] 02/21/2026 10:00 AM EDT Telemedicine - audio only [facility]astrointestinal Surgery 55 [facility], 4th Floor, [address] [place] [address] Janie Blackmon FNP 55 [facility] 460 [place] [address] [email or web address] g documented as of this encounter Visit Diagnoses Not on filedocumented in this encounter Care Teams Electronic Tech Relationship Specialty Start Date End Date Frankie Padron MD [address] [place] [address] [place] [address] PCP - General Internal Medicine 07/16/19 Saniya Tan MD 55 [facility] YA 7E [place] [address] DIALLO@[email or web address] Primary Oncologist Medical Oncology 12/22/20 Domenic Goldsmith MD, PhD 55 [facility] 7B [place] [address] JIGAR@[email or web address] Surgical Oncology 01/11/21 Mary Sanon MD 55 [facility] MAY 3 [place] [address] maria [email or web address] u Radiation Oncology 07/03/22 Davina Peraza RN 55 [place] [address] [email or web address] Primary Infusion Nurse 11/20/23 documented as of this encounter Additional Source Comments The information contained in this document represents components of the legal health record. It is not the complete legal health record.[facility]
--- OUTSIDE RECORDS SUMMARY | 2025-09-08 18:10 | XMS_ITS | Encounter Summary ---
Author Organization [facility] Address [address] [place] [address] Phone Care Team Providers Care Family Resource Management Professor Name Role Phone Frankie Padron MD Primary Care Provider Saniya Tan MD Unavailable Domenic Goldsmith MD, PhD Unavailable [phone] Robert Lomax MD Unavailable [phone] Mary Sanon MD Unavailable [phone] Marcy Garvey RN Unavailable [email or web address] Davina Peraza RN Unavailable [email or web address] Davina Peraza RN Unavailable [email or web address] Encounter Details Date Type Department Care Team (Late st Contact Info) Description 11/10/2020 Procedure Pass [facility] - [facility], [facility] [address] [place] [address] Social History Tobacco Use Types Packs/Day Years [...] MRI, [facility] [place] [address] [facility], [address] [place] [address] 08/12/[address] [place] [address] [facility], [address] [place] [address] 08/12/[address] [place] [address] [facility], [address] [place] [address] 08/12/2025 Procedure Pass MRI, [facility] [place] [address] [facility], [address] [place] [address] 10/14/2025 1:00 PM EST Office Visit [facility] 165 [facility] 9th [place] [address] Bettina Braden MD [address] [place] [address] MARTÍN@[facility] 10/19/2025 3:00 PM EST Infusion [facility] at [address] [address] Hany Leach MD 02/06/2026 10:30 AM EDT Blood Draw [facility] [place] 52 [facility] [address] Saniya Tan MD [address] [place] [address] DIALLO@[facility] 02/06/2026 11:[address], [facility] - [address] [facility], [address] [place] [address] Saniya Tan MD [address] [place] [address] DIALLO@[facility] 02/06/2026 12:30 PM EDT Appointment MRI, [facility] [place] 52 [facility], [address] [place] [address] Saniya Tan MD 55 [facility] 7E [place] [address] DIALLO@[facility] 02/07/2026 9:30 AM EDT Appointment MRI, [facility] [place] 52 [facility], [address] [place] [address] Domenic Goldsmith MD, PhD 55 [facility] 7B [place] [address] JIGAR@[facility] 02/14/2026 11:00 AM EDT Office Visit [facility] 32 [facility], 7th Floor, [address] [place] [address] Saniya aTn MD [address] [place] [address] 7E [place] [address] DIALLO@[facility] 02/14/2026 11:00 AM EDT Office Visit [facility] 32 [facility], 7th Floor, [address] [place] [address] Roxana Ornelas MD 55 [facility] MAY 3 [place] [address] CHIN@[email or web address] 02/21/2026 10:00 AM EDT Telemedicine - audio only [facility] & Gastrointestinal Surgery 55 [facility], 4th Floor, [address] [place] [address] Janie Blackmon FNP 55 [facility] 460 [place] [phone] [email or web address] g documented as of this encounter Visit Diagnoses Not on filedocumented in this encounter Care Teams Family Resource Management Professor Relationship Specialty Start Date End Date Frankie Padron MD [address] [place] [address] [place] [address] PCP - General Internal Medicine 07/16/19 Saniya Tan MD 55 [facility] YA 7E [place] [address] DIALLO@[email or web address] Primary Oncologist Medical Oncology 12/22/20 Domenic Goldsmith MD, PhD [address] [place] [address] [place] [address] JIGAR@[email or web address] Surgical Oncology 01/11/21 Robert Lomax MD 55 [facility] [address] [place] [address] MARCELA@[facility] Cardiothoracic Surgery 07/03/22 08/18/23 Mary Sanon MD 55 [facility] 3 [place] [address] maria [email or web address] Radiation Oncology 07/03/22 Marcy Garvey RN 55 [facility] 3 [place] [address] [email or web address] Primary Infusion Nurse 10/23/23 11/19/23 Davina Peraza RN Associate Infusion Nurse 10/29/23 11/19/23 Davina Peraza RN 55 [place] [address] [email or web address] Primary Infusion Nurse 11/20/23 documented as of this encounter Additional Source Comments The information contained in this document represents components of the legal health record. It is not the complete legal health record.[facility]
--- OUTSIDE RECORDS SUMMARY | 2025-09-08 18:10 | XMS_ITS | Encounter Summary ---
Author Organization [facility] Address [address] [place] [address] Phone Care Team Providers Care Mergers And Acquisitions Consultant Name Role Phone Frankie Padron MD Primary Care Provider Saniya Tan MD Unavailable Domenic Goldsmith MD, PhD Unavailable [phone] Mary Sanon MD Unavailable [phone] Davina Peraza RN Unavailable [email or web address] Encounter Details Date Type Department Care Team (Late st Contact Info) Description 05/27/2024 Procedure Pass [facility] PERIOPERATIVE DEPT 55 [place] [address] Social History Tobacco Use Types Packs/Day Years [...] Date of Assessment Author No Risk Indicated 05/28/2024 6:00 AM EDT Thea Maldonado RN * [place] Suicide Severity Rating Scale (Screener/Recent Self-Report) Question Answer Date of Assessment Author 1. Wish to be (Past 1 Month) No 05/28/2024 6:00 AM EDT Thea Maldonado, RACHEL 2. Non-Specific Active Suicidal Thoughts (Past 1 Month) No 05/28/2024 6:00 AM EDT Thea Maldonado RN 6. Suicidal Behavior (Lifetime) No 05/28/2024 6:00 AM EDT Thea Maldonado RN documented as of this encounter Plan of Treatment Upcoming Encounters Date Type Department Care Team (Latest Contact Info) Description 02/15/2025 Procedure Pass MRI, [facility] - [address], [address] [place] [address] 08/12/[address], [facility] [place] [address] [facility], [address] [place] [address] 08/12/[address], [facility] [place] [address] [facility], [address] [place] [address] 08/12/2025 Procedure Pass MRI, [facility] - [address], [address] [place] [address] 10/14/2025 1:00 PM EST Office Visit [facility] 165 [facility] 9th [place] [address] Bettina Braden MD [address] [place] [address] MARTÍN@[facility] 10/19/2025 3:00 PM EST Infusion [facility] [address] [address] Hany Leach MD 02/06/2026 10:30 AM EDT Blood Draw [facility] Lab [address] [address] Saniya Tan MD [address] [address] DIALLO@[facility] 02/06/2026 11:[address], [facility] - [address], [address] [place] [address] Saniya Tan MD [address] [place] [address] DIALLO@[facility] 02/06/2026 12:30 PM EDT Appointment MRI, [facility] - [address], [address] [place] [address] Saniya Tan MD [address] [place] [address] DIALLO@[facility] 02/07/2026 9:30 AM EDT Appointment MRI, [facility] - [address], [address] [place] [address] Domenic Goldsmith MD, PhD [address] [address] MQJUNIOR@[email or web address] 02/14/2026 11:00 AM EDT Office Visit [facility] 32 [facility], 7th Floor, [address] [place] [address] Saniya Tan MD [address] [address] DIALLO@[facility] 02/14/2026 11:00 AM EDT Office Visit [facility] [address] [facility], 7th Floor, [address] [place] [address] Roxana Ornelas MD 55 [facility] 3 [place] [address] CHIN@[email or web address] 02/21/2026 10:00 AM EDT Telemedicine - audio only [facility] General & Gastrointestinal Surgery 55 [facility], 4th Floor, [address] [place] [address] Janie Blackmon FNP 55 [facility] 460 [place] [phone] [email or web address].[email or web address] g documented as of this encounter Visit Diagnoses Not on filedocumented in this encounter Care Teams Mergers And Acquisitions Consultant Relationship Specialty Start Date End Date Frankie Padron MD [address] [place] [address] [place] [address] PCP - General Internal Medicine 07/16/19 Saniya Tan MD 55 [facility] 7E [place] [address] DIALLO@[facility] Primary Oncologist Medical Oncology 12/22/20 Domenic Goldsmith MD, PhD 55 [facility] 7B [place] [address] MQJUNIOR@[email or web address] Surgical Oncology 01/11/21 Mary Sanon MD 55 [facility] 3 [place] [address] maria [email or web address] u Radiation Oncology 07/03/22 Davina Peraza, RN [address] [place] [address] [email or web address] Primary Infusion Nurse 11/20/23 documented as of this encounter Additional Source Comments The information contained in this document represents components of the legal health record. It is not the complete legal health record.[facility]
--- OUTSIDE RECORDS SUMMARY | 2025-09-08 18:10 | XMS_ITS | Encounter Summary ---
Author Organization [facility] Address 399 [facility] [address] [place] [address] Phone Care Team Providers Care It Service Technician Name Role Phone Frankie Padron MD Primary Care Provider Saniya Tan MD Unavailable Domenic Goldsmith MD, PhD Unavailable [phone] Robert Lomax MD Unavailable [phone] Mary Sanon MD Unavailable [phone] Marcy Garvey RN Unavailable [email or web address] Davina Peraza RN Unavailable [email or web address] Davina Peraza RN Unavailable mcutting [email or web address] Encounter Details Date Type Department Care Team (Late st Contact Info) Description 01/26/2021 Procedure Pass [facility] PERIOPERATIVE DEPT [address] [place] [address] Social History Tobacco Use Types Packs/Day Years [...] Contact Info) Description 02/15/2025 Procedure Pass MRI, [facility] [place] [address] [facility], [address] [place] [address] 08/12/[address], [facility] [place] [address] [facility], [address] [place] [address] 08/12/[address], [facility] [place] [address] [facility], [address] [place] [address] 08/12/2025 Procedure Pass MRI, [facility] - [place] [address] [facility], [address] [place] [address] 10/14/2025 1:00 PM EST Office Visit [facility] 165 [facility] 9th [place] [address] Bettina Braden MD [address] [place] [address] 4 [place] [address] MARTÍN@[facility] 10/19/2025 3:00 PM EST Infusion [facility] at [address] [address] Hany Leach MD 02/06/2026 10:30 AM EDT Blood Draw [facility] Lab [address] [place] [address] Saniya Tan MD [address] [place] [address] DIALLO@[facility] 02/06/2026 11:[address], [facility] [place] 52 [facility], [address] [place] [address] Saniya Tan MD [address] [place] [address] 7[address] [place] [address] IDALLO@[facility] 02/06/2026 12:30 PM EDT Appointment MRI, [facility] [place] 52 [facility], [address] [place] [address] Saniya Tan MD 55 [facility] 7E [place] [address] DIALLO@[facility] 02/07/2026 9:30 AM EDT Appointment MRI, [facility] [place] 52 [facility], [address] [place] [address] Domenic Goldsmith MD, PhD 55 [facility] 7B [place] [address] JIGAR@[facility] 02/14/2026 11:00 AM EDT Office Visit [facility] 32 [facility], 7th Floor, [address] [place] [address] Saniya Tan MD [address] [place] [address] 7[address] [place] [address] DIALLO@[facility] 02/14/2026 11:00 AM EDT Office Visit [facility] 32 [facility], 7th Floor, [address] [place] [address] Roxana Ornelas MD 55 [facility] MAY 3 [place] [address] CHIN@[facility] 02/21/2026 10:00 AM EDT Telemedicine - audio only [facility] General & Gastrointestinal Surgery 55 [facility], 4th Floor, [address] [place] [address] Janie Blackmon FNP 55 [facility] 460 [place] [phone] [email or web address] g documented as of this encounter Visit Diagnoses Not on filedocumented in this encounter Care Teams It Service Technician Relationship Specialty Start Date End Date Frankie Padron MD [address] [place] [address] [place] [address] PCP - General Internal Medicine 07/16/19 Saniya Tan MD 55 [facility] YA 7E [place] [address] DIALLO@[email or web address] Primary Oncologist Medical Oncology 12/22/20 Domenic Goldsmith MD, PhD [address] [facility] 7B [place] [address] JIGAR@[facility] Surgical Oncology 01/11/21 Robert Lomax MD 55 [facility] 7B [place] [address] MARCELA@[facility] Cardiothoracic Surgery 07/03/22 08/18/23 Mary Sanon MD 55 [facility] 3 [place] [address] maria [email or web address] Radiation Oncology 07/03/22 Marcy Garvey RN 55 [facility] 3 [place] [address] [email or web address] Primary Infusion Nurse 10/23/23 11/19/23 Davina Peraza RN Associate Infusion Nurse 10/29/23 11/19/23 Davina Peraza RN 55 [place] [address] [email or web address] Primary Infusion Nurse 11/20/23 documented as of this encounter Additional Source Comments The information contained in this document represents components of the legal health record. It is not the complete legal health record.[facility]
--- OUTSIDE RECORDS SUMMARY | 2025-09-08 18:10 | XMS_ITS | Encounter Summary ---
Author Organization [facility] Address [address] [place] [address] Phone Care Team Providers Care Nitric Acid Concentrator Operator Name Role Phone Frankie Padron MD Primary Care Provider Saniya Tan MD Unavailable Domenic Goldsmith MD, PhD Unavailable [phone] Robert Lomax MD Unavailable Mary Sanon MD Unavailable Marcy Garvey RN Unavailable [email or web address] Davina Peraza RN Unavailable [email or web address] Davina Peraza RN Unavailable [email or web address] Encounter Details Date Type Department Care Team (Late st Contact Info) Description 02/20/[address], [facility] Imaging - [address], [address] [place] [address] Social History Tobacco Use Types Packs/Day Years [...] Contact Info) Description 02/15/2025 Procedure Pass MRI, [facility] General Imaging - [address], [address] [place] [address] 08/12/[address], [facility] General Imaging - [address], [address] [place] [address] 08/12/[address], [facility] General Imaging - [address] [facility], [address] [place] [address] 08/12/2025 Procedure Pass MRI, [facility] Imaging - [address], [address] [place] [address] 10/14/2025 1:00 PM EST Office Visit [facility] [place] [place] [facility] [address] [facility] 9th [place] [address] Bettina Braden MD [address] [place] [address] MARTÍN@[facility] 10/19/2025 3:00 PM EST Infusion [facility] at [address] [address] Hany Leach MD 02/06/2026 10:30 AM EDT Blood Draw [facility] [place] [place] Lab [address] [address] Saniya Tan MD [address] [place] [address] DIALLO@[facility] 02/06/2026 11:[address], [facility] General Imaging - [address], [address] [place] [address] Saniya Tan MD [address] [place] [address] DIALLO@[facility] 02/06/2026 12:30 PM EDT Appointment MRI, [facility] - [place] [address] [facility], [address] [place] [address] Saniya Tan MD [address] [facility] 7E [place] [address] DIALLO@[facility] 02/07/2026 9:30 AM EDT Appointment MRI, [facility] - [place] [address] [facility], [address] [place] [address] Domenic Goldsmith MD, PhD 55 [facility] 7B [place] [address] JIGAR@[email or web address] 02/14/2026 11:00 AM EDT Office Visit [facility] [address] [facility], 7th Floor, [address] [place] [address] Saniya Tan MD [address] [place] [address] 7[address] [place] [address] DIALLO@[facility] 02/14/2026 11:00 AM EDT Office Visit [facility] [address] [facility], 7th Floor, [address] [place] [address] Roxana Ornelas MD 55 [facility] 3 [place] [address] CHIN@[facility] 02/21/2026 10:00 AM EDT Telemedicine - audio only [facility] [place] [place] General & Gastrointestinal Surgery [address] [facility], 4th Floor, [address] [place] [address] Janie Blackmon FNP [address] [facility] 460 [place] [id number] [email or web address] [email or web address] g documented as of this encounter Visit Diagnoses Not on filedocumented in this encounter Care Teams Nitric Acid Concentrator Operator Relationship Specialty Start Date End Date Frankie Padron MD [address] [place] [address] [place] [address] PCP - General Internal Medicine 07/16/19 Saniya Tan MD 55 [facility] YA 7E [place] [address] DIALLO@[email or web address] Primary Oncologist Medical Oncology 12/22/20 Domenic Goldsmith MD, PhD 55 [facility] 7[address] [place] [address] JIGAR@[facility] Surgical Oncology 01/11/21 Robert Lomax MD 55 [facility] 7[address] [place] [address] [email or web address] Cardiothoracic Surgery 07/03/22 08/18/23 Mary Sanon MD 55 [facility] 3 [place] [address] maria [email or web address] Radiation Oncology 07/03/22 Marcy Garvey RN 55 [facility] 3 [place] [address] [email or web address] Primary Infusion Nurse 10/23/23 11/19/23 Davina Peraza RN Associate Infusion Nurse 10/29/23 11/19/23 Davina Peraza RN 55 [place] [address] [email or web address] Primary Infusion Nurse 11/20/23 documented as of this encounter Additional Source Comments The information contained in this document represents components of the legal health record. It is not the complete legal health record.[facility]
--- OUTSIDE RECORDS SUMMARY | 2025-09-08 18:10 | XMS_ITS | Encounter Summary ---
Author Organization [facility] Address [address] [facility] [address] [place] [address] Phone Care Team Providers Care Stiff Straw Hat Washer Name Role Phone Frankie Padron MD Primary Care Provider Saniya Tan MD Unavailable Domenic Goldsmith MD, PhD Unavailable [phone] Robert Lomax MD Unavailable [phone] Mary Sanon MD Unavailable Marcy Garvey RN Unavailable [email or web address] Davina Peraza RN Unavailable [email or web address] Davina Peraza RN Unavailable [email or web address] Encounter Details Date Type Department Care Team (Late st Contact Info) Description 06/24/2022 Procedure Pass [facility] PERI[facility]IVE [facility]PT [address] [place] [address] Social History Tobacco Use Types Packs/Day Years [...] Contact Info) Description 02/15/2025 Procedure Pass MRI, [facility] General Imaging - [place] [address] [facility], [address] [place] [address] 08/12/[address], [facility] General Imaging - [place] [address] [facility], [address] [place] [address] 08/12/[address], [facility] General Imaging - [place] [address] [facility], [address] [place] [address] 08/12/2025 Procedure Pass MRI, [facility] General Imaging - [place] [address] [facility], [address] [place] [address] 10/14/2025 1:00 PM EST Office Visit [facility] [address] [facility] 9th [place] [address] Bettina Braden MD [address] [place] [address] 4 [place] [address] MARTÍN@[facility] 10/19/2025 3:00 PM EST Infusion [facility] at [address] [address] Hany Leach MD 02/06/2026 10:30 AM EDT Blood Draw [facility] Lab [address] [place] [address] Saniya Tan MD [address] [place] [address] DIALLO@[facility] 02/06/2026 11:[address], [facility] General Imaging - [place] 52 [facility], [address] [place] [address] Saniya Tan MD [address] [place] [address] 7[address] [place] [address] DIALLO@[facility] 02/06/2026 12:30 PM EDT Appointment MRI, [facility] General Imaging - [place] [address] [facility], [address] [place] [address] Saniya Tan MD [address] [facility] 7E [place] [address] DIALLO@[facility] 02/07/2026 9:30 AM EDT Appointment MRI, [facility] Imaging - [place] [address] [facility], [address] [place] [address] Domenic Goldsmith MD, PhD [address] [facility] 7B [place] [address] JIGAR@[facility] 02/14/2026 11:00 AM EDT Office Visit [facility] 32 [facility], 7th Floor, [address] [place] [address] Saniya Tan MD [address] [place] [address] [address] [place] [address] DIALLO@[facility] 02/14/2026 11:00 AM EDT Office Visit [facility] 32 [facility], 7th Floor, [address] [place] [address] Roxana Ornelas MD 55 [facility] MAY 3 [place] [address] CHIN@[facility] 02/21/2026 10:00 AM EDT Telemedicine - audio only [facility] General & Gastrointestinal Surgery [address] [facility], 4th Floor, [address] [place] [address] Janie Blackmon FNP 55 [facility] 460 [place] [phone] [email or web address] g documented as of this encounter Visit Diagnoses Not on filedocumented in this encounter Care Teams Stiff Straw Hat Washer Relationship Specialty Start Date End Date Frankie Padron MD [address] [place] [address] [place] [address] PCP - General Internal Medicine 07/16/19 Saniya Tan MD 55 [facility] YA 7E [place] [address] DIALLO@[email or web address] Primary Oncologist Medical Oncology 12/22/20 Domenic Goldsmith MD, PhD [address] [facility] 7B [place] [address] JIGAR@[email or web address] Surgical Oncology 01/11/21 Robert Lomax MD 55 [facility] 7B [place] [address] MARCELA@[email or web address] Cardiothoracic Surgery 07/03/22 08/18/23 Mary Sanon MD 55 [facility] 3 [place] [address] [email or web address] [email or web address] Radiation Oncology 07/03/22 Marcy Garvey RN 55 [facility] 3 [place] [address] [email or web address] Primary Infusion Nurse 10/23/23 11/19/23 Davina Peraza RN Associate Infusion Nurse 10/29/23 11/19/23 Davina Peraza RN 55 [place] [address] [email or web address] Primary Infusion Nurse 11/20/23 documented as of this encounter Additional Source Comments The information contained in this document represents components of the legal health record. It is not the complete legal health record.[facility]
--- OUTSIDE RECORDS SUMMARY | 2025-09-08 18:10 | XMS_ITS | Encounter Summary ---
Author Organization [facility] Address [address] [facility] [address] [place] [address] Phone Care Team Providers Care Waist Presser Name Role Phone Frankie Padron MD Primary Care Provider Saniya Tan MD Unavailable Domenic Goldsmith MD, PhD Unavailable [phone] Robert Lomax MD Unavailable [phone] Mary Sanon MD Unavailable Marcy Garvey RN Unavailable [email or web address] Davina Peraza RN Unavailable [email or web address] ORG Davina Peraza RN Unavailable [email or web address] Encounter Details Date Type Department Care Team (Late st Contact Info) Description 08/08/2023 Procedure Pass [facility], [place] [address] [facility], 2nd [place] [address] Social History Tobacco Use Types Packs/Day Years [...] Info) Description 02/15/2025 Procedure Pass MRI, [facility] Imaging - [address] [facility], [address] [place] [address] 08/12/[address], [facility] Imaging - [place] [facility], [address] [place] [address] 08/12/[address], [facility] - [place] [facility], [address] [place] [address] 08/12/2025 Procedure Pass MRI, [facility] Imaging - [address] [facility], [address] [place] [address] 10/14/2025 1:00 PM EST Office Visit [facility] [address] 9th [place] [address] Bettina Braden MD 55 [facility] 4 [place] [address] MARTÍN@[facility] 10/19/2025 3:00 PM EST Infusion [facility] at [place] 30 [place] [address] Hany Leach MD 02/06/2026 10:30 AM EDT Blood Draw [facility] [place] [address] [place] [address] Saniya Tan MD [address] [place] [address] [place] [address] DIALLO@[facility] 02/06/2026 11:[address], [facility] Imaging - [address], [address] [place] [address] Saniya Tan MD 55 [facility] 7E [place] [address] DIALLO@[facility] 02/06/2026 12:30 PM EDT Appointment MRI, [facility] Imaging - [address], [address] [place] [address] Saniya Tan MD 55 [facility] 7E [place] [address] DIALLO@[facility] 02/07/2026 9:30 AM EDT Appointment MRI, [facility] Imaging - [address], [address] [place] [address] Domenic Goldsmith MD, PhD [address] [facility] [address] [place] [address] [email or web address] 02/14/2026 11:00 AM EDT Office [facility], 7th Floor, [address] [place] [address] Saniya Tan MD 55 [facility] 7E [place] [address] DIALLO@[facility] 02/14/2026 11:00 AM EDT Office Visit [facility] 32 [facility], 7th Floor, [address] [place] [address] Roxana Ornelas MD 55 [facility] 3 [place] [address] CHIN@[email or web address] 02/21/2026 10:00 AM EDT Telemedicine - audio only [facility] General & Gastrointestinal Surgery 55 [facility], 4th Floor, [address] [place] [address] Janie Blackmon FNP 55 [facility] 460 [place] [phone] [email or web address] g documented as of this encounter Visit Diagnoses Not on filedocumented in this encounter Care Teams Waist Presser Relationship Specialty Start Date End Date Frankie Padron MD [address] [place] [address] [place] [address] PCP - General Internal Medicine 07/16/19 Saniya Tan MD 55 [facility] YA 7E [place] [address] [email or web address]@[email or web address] Primary Oncologist Medical Oncology 12/22/20 Domenic Goldsmith MD, PhD [address] [facility] [address] [place] [address] JIGAR@[email or web address] Surgical Oncology 01/11/21 Robert Lomax MD [address] [facility] [address] [place] [address] MARCELA@[email or web address] Cardiothoracic Surgery 07/03/22 08/18/23 Mary Sanon MD 55 [facility] 3 [place] [address] maria [email or web address] Radiation Oncology 07/03/22 Marcy Garvey RN 55 [facility] 3 [place] [address] [email or web address] Primary Infusion Nurse 10/23/23 11/19/23 Davina Peraza RN Associate Infusion Nurse 10/29/23 11/19/23 Davina Peraza, RACHEL [address] [place] [address] [email or web address] Primary Infusion Nurse 11/20/23 documented as of this encounter Additional Source Comments The information contained in this document represents components of the legal health record. It is not the complete legal health record.[facility]
--- OUTSIDE RECORDS SUMMARY | 2025-09-08 18:10 | XMS_ITS | Encounter Summary ---
Author Organization [facility] Address [address] [facility] [address] [place] [address] Phone Care Team Providers Care Underwater Welder Name Role Phone Frankie Padron MD Primary Care Provider Saniya Tan MD Unavailable Domenic Goldsmith MD, PhD Unavailable [phone] Robert Lomax MD Unavailable [phone] Mary Sanon MD Unavailable [phone] Marcy Garvey RN Unavailable [email or web address] Davina Peraza RN Unavailable [email or web address] Davina Peraza RN Unavailable [email or web address] Encounter Details Date Type Department Care Team (Late st Contact Info) Description 02/25/2022 Procedure Pass [facility] PERI[facility]PT [address] [place] [address] Social History Tobacco Use Types Packs/Day Years [...] Contact Info) Description 02/15/2025 Procedure Pass MRI, [facility] General Imaging - [place] [address] [facility], [address] [place] [address] 08/12/[address], [facility] General Imaging - [place] [address] [facility], [address] [place] [address] 08/12/[address], [facility] General Imaging - [place] [address] [facility], [address] [place] [address] 08/12/2025 Procedure Pass MRI, [facility] General Imaging - [place] [address] [facility], [address] [place] [address] 10/14/2025 1:00 PM EST Office Visit [facility] [address] [facility] 9th [place] [address] Bettina Braden MD [address] [place] [address] 4 [place] [address] MARTÍN@[facility] 10/19/2025 3:00 PM EST Infusion [facility] at [address] [address] Hany Leach MD 02/06/2026 10:30 AM EDT Blood Draw [facility] Lab [address] [place] [address] Saniya Tan MD [address] [place] [address] DIALLO@[facility] 02/06/2026 11:[address], [facility] General Imaging - [place] 52 [facility], [address] [place] [address] Saniya Tan MD [address] [place] [address] 7[address] [place] [address] DIALLO@[facility] 02/06/2026 12:30 PM EDT Appointment MRI, [facility] General Imaging - [place] 52 [facility], [address] [place] [address] Saniya Tan MD 55 [facility] 7E [place] [address] DIALLO@[facility] 02/07/2026 9:30 AM EDT Appointment MRI, [facility] - [place] 52 [facility], [address] [place] [address] Domenic Goldsmith MD, PhD 55 [facility] 7B [place] [address] JIGAR@[facility] 02/14/2026 11:00 AM EDT Office Visit [facility] 32 [facility], 7th Floor, [address] [place] [address] Saniya Tan MD [address] [place] [address] 7[address] [place] [address] DIALLO@[facility] 02/14/2026 11:00 AM EDT Office Visit [facility] 32 [facility], 7th Floor, [address] [place] [address] Roxana Ornelas MD 55 [facility] MAY 3 [place] [address] CHIN@[email or web address] 02/21/2026 10:00 AM EDT Telemedicine - audio only [facility] General & Gastrointestinal Surgery 55 [facility], 4th Floor, [address] [place] [address] Janie Blackmon FNP 55 [facility] 460 [place] [phone] [email or web address] g documented as of this encounter Visit Diagnoses Not on filedocumented in this encounter Care Teams Underwater Welder Relationship Specialty Start Date End Date Frankie Padron MD [address] [place] [address] [place] [address] PCP - General Internal Medicine 07/16/19 Saniya Tan MD 55 [facility] YA 7E [place] [address] DIALLO@[email or web address] Primary Oncologist Medical Oncology 12/22/20 Domenic Goldsmith MD, PhD [address] [facility] [address] [facility] 7B [place] [address] JIGAR@[email or web address] Surgical Oncology 01/11/21 Robert Lomax MD 55 [facility] 7B [place] [address] MARCELA@[email or web address] Cardiothoracic Surgery 07/03/22 08/18/23 Mary Sanon MD 55 [facility] 3 [place] [address] maria [email or web address] Radiation Oncology 07/03/22 Marcy Garvey RN 55 [facility] 3 [place] [address] [email or web address] Primary Infusion Nurse 10/23/23 11/19/23 Davina Peraza RN Associate Infusion Nurse 10/29/23 11/19/23 Davina Peraza RN 55 [place] [address] [email or web address] Primary Infusion Nurse 11/20/23 documented as of this encounter Additional Source Comments The information contained in this document represents components of the legal health record. It is not the complete legal health record.[facility]
--- OUTSIDE RECORDS SUMMARY | 2025-09-08 18:10 | XMS_ITS | Encounter Summary ---
Author Organization [facility] Address [address] [place] [address] Phone Care Team Providers Care Manager Ambulatory Name Role Phone Frankie Padron MD Primary Care Provider Saniya Tan MD Unavailable Domenic Goldsmith MD, PhD Unavailable [phone] Robert Lomax MD Unavailable Mary Sanon MD Unavailable [phone] Marcy Garvey RN Unavailable [email or web address] Davina Peraza RN Unavailable [email or web address] Davina Peraza RN Unavailable [email or web address] Encounter Details Date Type Department Care Team (Late st Contact Info) Description 05/28/2023 Procedure Pass [facility] PERIOPERATIVE DEPT [address] [place] [address] Social History Tobacco Use Types Packs/Day Years [...] Contact Info) Description 02/15/2025 Procedure Pass MRI, [facility] - [place] 52 [facility], [address] [place] [address] 08/12/[address], [facility] - [place] 52 [facility], [address] [place] [address] 08/12/[address], [facility] Imaging - [address] [facility], [address] [place] [address] 08/12/2025 Procedure Pass MRI, [facility] - [address] [facility], [address] [place] [address] 10/14/2025 1:00 PM EST Office Visit [facility] [address] 9th [place] [address] Bettina Braden MD 55 [facility] 4 [place] [address] MARTÍN@[facility] 10/19/2025 3:00 PM EST Infusion [facility] at [place] 30 [place] [address] Hany Leach MD 02/06/2026 10:30 AM EDT Blood Draw [facility] Lab [place] [address] [facility] [place] [address] Saniya Tan MD 55 [facility] YA [address]E [place] [address] DIALLO@[facility] 02/06/2026 11:[address], [facility] General Imaging - [address], [address] [place] [address] Saniya Tan MD [address] [address] DIALLO@[facility] 02/06/2026 12:30 PM EDT Appointment MRI, [facility] - [address], [address] [place] [address] Saniya Tan MD [address] [address] DIALLO@[facility] 02/07/2026 9:30 AM EDT Appointment MRI, [facility] - [address], [address] [place] [address] Domenic Goldsmith MD, PhD 55 [facility] 7B [place] [address] MQADAN@[facility] 02/14/2026 11:00 AM EDT Office [facility] 32 [facility], 7th Floor, [address] [place] [address] Saniya Tan MD [address] [place] [address] 7[address] [place] [address] DIALLO@[facility] 02/14/2026 11:00 AM EDT Office [facility] 32 [facility], 7th Floor, [address] [place] [address] Roxana Ornelas MD 55 [facility] 3 [place] [address] CHIN@[facility] 02/21/2026 10:00 AM EDT Telemedicine - audio only [facility] General & Gastrointestinal Surgery 55 [facility], 4th Floor, [address] [place] [address] Janie Blackmon FNP 55 [facility] 460 [place] [phone] [email or web address] g documented as of this encounter Visit Diagnoses Not on filedocumented in this encounter Care Teams Manager Ambulatory Relationship Specialty Start Date End Date Frankie Padron MD [address] [place] [address] [place] [address] PCP - General Internal Medicine 07/16/19 Saniya Tan MD 55 [facility] 7E [place] [address] DIALLO@[email or web address] Primary Oncologist Medical Oncology 12/22/20 Domenic Goldsmith MD, PhD 55 [facility] 7[address] [place] [address] JIGAR@[email or web address] Surgical Oncology 01/11/21 Robert Lomax MD 55 [facility] 7[address] [place] [address] MARCELA@[facility] umair.[facility] Cardiothoracic Surgery 07/03/22 08/18/23 Mary Sanon MD 55 [facility] 3 [place] [address] maria [email or web address] Radiation Oncology 07/03/22 Marcy Garvey RN 55 [facility] 3 [place] [address] [email or web address] Primary Infusion Nurse 10/23/23 11/19/23 Davina Peraza RN Associate Infusion Nurse 10/29/23 11/19/23 Davina Peraza, RACHEL [address] [place] [address] [email or web address] Primary Infusion Nurse 11/20/23 documented as of this encounter Additional Source Comments The information contained in this document represents components of the legal health record. It is not the complete legal health record.[facility]
--- OUTSIDE RECORDS SUMMARY | 2025-09-08 18:10 | XMS_ITS | Encounter Summary ---
Author Organization [facility] Address [address] [facility] [address] [place] [address] Phone Care Team Providers Care Instructor Industrial Design Name Role Phone Frankie Padron MD Primary Care Provider Saniya Tan MD Unavailable Domenic Goldsmith MD, PhD Unavailable [phone] Robert Lomax MD Unavailable [phone] Mary Sanon MD Unavailable Marcy Garvey RN Unavailable [email or web address] Davina Peraza RN Unavailable [email or web address] Davina Peraza RN Unavailable [email or web address] Encounter Details Date Type Department Care Team (Late st Contact Info) Description 08/08/2023 Procedure Pass [facility] PET[facility] Imaging, [place] 2 [address] [facility], 2nd [place] [address] Social History Tobacco Use Types Packs/Day Years [...] Contact Info) Description 02/15/2025 Procedure Pass MRI, [facility] - [address] [facility], [address] [place] [address] 08/12/[address], [facility] [place] [address] [facility], [address] [place] [address] 08/12/[address], [facility] [place] 52 [facility], [address] [place] [address] 08/12/2025 Procedure Pass MRI, [facility] - [address] [facility], [address] [place] [address] 10/14/2025 1:00 PM EST Office Visit [facility] [address] 9th [place] [address] Bettina Braden MD 55 [facility] 4 [place] [address] MARTÍN@[facility] 10/19/2025 3:00 PM EST Infusion [facility] [place] 30 [place] [address] Hany Leach MD 02/06/2026 10:30 AM EDT Blood Draw [facility] Lab [place] [address] [place] [address] Saniya Tan MD [address] [place] [address] DIALLO@[facility] 02/06/2026 11:[address], [facility] - [address], [address] [place] [address] Saniya Tan MD 55 [facility] 7E [place] [address] DIALLO@[facility] 02/06/2026 12:30 PM EDT Appointment MRI, [facility] - [address], [address] [place] [address] Saniya Tan MD 55 [facility] 7E [place] [address] DIALLO@[facility] 02/07/2026 9:30 AM EDT Appointment MRI, [facility] - [address], [address] [place] [address] Domenic Goldsmith MD, PhD 55 [facility] 7B [place] [address] MQJUNIOR@[facility] 02/14/2026 11:00 AM EDT Office [facility] 32 [facility], 7th Floor, [address] [place] [address] Saniya Tan MD 55 [facility] 7E [place] [address] DIALLO@[facility] 02/14/2026 11:00 AM EDT Office [facility] 32 [facility], 7th Floor, [address] [place] [address] Roxana Ornelas MD 55 [facility] 3 [place] [address] CHIN@[facility] 02/21/2026 10:00 AM EDT Telemedicine - audio only [facility] General & Gastrointestinal Surgery 55 [facility], 4th Floor, [address] [place] [address] Janie Blackmon FNP 55 [facility] 460 [place] [phone] [email or web address] g documented as of this encounter Visit Diagnoses Not on filedocumented in this encounter Care Teams Instructor Industrial Design Relationship Specialty Start Date End Date Frankie Padron MD [address] [place] [address] [place] [address] PCP - General Internal Medicine 07/16/19 Saniya Tan MD 55 [facility] YA 7E [place] [address] DIALLO@[facility] Primary Oncologist Medical Oncology 12/22/20 Domenic Goldsmith MD, PhD 55 [facility] 7[address] [place] [address] JIGAR@[facility] Surgical Oncology 01/11/21 Robert Lomax MD 55 [facility] 7[address] [place] [address] MARCELA@[facility] Cardiothoracic Surgery 07/03/22 08/18/23 Mary Sanon MD 55 [facility] 3 [place] [address] maria [email or web address] Radiation Oncology 07/03/22 Marcy Garvey RN 55 [facility] 3 [place] [address] [email or web address] Primary Infusion Nurse 10/23/23 11/19/23 Davina Peraza RN Associate Infusion Nurse 10/29/23 11/19/23 Davina Peraza, RACHEL [address] [place] [address] [email or web address] Primary Infusion Nurse 11/20/23 documented as of this encounter Additional Source Comments The information contained in this document represents components of the legal health record. It is not the complete legal health record.[facility]
--- OUTSIDE RECORDS SUMMARY | 2025-09-08 18:10 | XMS_ITS | Encounter Summary ---
Author Organization [facility] Address [address] [facility] [place] [address] Phone Care Team Providers Care Fish Header Name Role Phone Frankie Padron MD Primary Care Provider Saniya Tan MD Unavailable Domenic Goldsmith MD, PhD Unavailable [phone] Robert Lomax MD Unavailable [phone] Mary Sanon MD Unavailable [phone] Marcy Garvey RN Unavailable [email or web address] Davina Peraza RN Unavailable [email or web address] Davina Peraza RN Unavailable [email or web address] Encounter Details Date Type Department Care Team (Late st Contact Info) Description 10/25/2020 Procedure Pass [facility], Ct Scan - [address] [address] Social History Tobacco Use Types Packs/Day Years [...] [facility] General Imaging - [place] [address] [facility], [address] [place] [address] 08/12/[address], Mary [facility] General Imaging - [place] [address] [facility], [address] [place] [address] 08/12/[address], Mary [facility] General Imaging - [place] [address] [facility], [address] [place] [address] 08/12/2025 Procedure Pass MRI, Mary [facility] General Imaging - [place] [address] [facility], [address] [place] [address] 10/14/2025 1:00 PM EST Office Visit [facility] [place] [facility] 165 [facility] 9th [place] [address] Bettina Braden MD [address] [place] [address] MARTÍN@[facility] 10/19/2025 3:00 PM EST Infusion [facility] at [address] [address] Hany Leach MD 02/06/2026 10:30 AM EDT Blood Draw [facility] [place] [place] Lab [place] 52 [facility] [place] [address] Saniya Tan MD [address] [place] [address] DIALLO@[facility] 02/06/2026 11:[address], Mary [facility] General Imaging - [address] [facility], [address] [place] [address] Saniya Tan MD [address] [place] [address] DIALLO@[facility] 02/06/2026 12:30 PM EDT Appointment MRI, [facility] General Imaging - [place] 52 [facility], [address] [place] [address] Saniya Tan MD 55 [facility] 7E [place] [address] DIALLO@[facility] 02/07/2026 9:30 AM EDT Appointment MRI, [facility] - [place] 52 [facility], [address] [place] [address] Domenic Goldsmith MD, PhD 55 [facility] 7B [place] [address] JIGAR@[facility] 02/14/2026 11:00 AM EDT Office Visit [facility] 32 [facility], 7th Floor, [address] [place] [address] Saniya Tan MD [address] [place] [address] 7[address] [place] [address] DIALLO@[facility] 02/14/2026 11:00 AM EDT Office Visit [facility] 32 [facility], 7th Floor, [address] [place] [address] Roxana Ornelas MD 55 [facility] MAY 3 [place] [address] CHIN@[facility] 02/21/2026 10:00 AM EDT Telemedicine - audio only [facility] [place] [place] General & Gastrointestinal Surgery 55 [facility], 4th Floor, [address] [place] [address] Janie Blackmon FNP 55 [facility] 460 [place] [phone] [email or web address] g documented as of this encounter Visit Diagnoses Not on filedocumented in this encounter Care Teams Fish Header Relationship Specialty Start Date End Date Frankie Padron MD [address] [place] [address] [place] [address] PCP - General Internal Medicine 07/16/19 Saniya Tan MD 55 [facility] YA 7E [place], [place] DIALLO@[email or web address] Primary Oncologist Medical Oncology 12/22/20 Domenic Goldsmith MD, PhD [address] [facility] [address] [place] [address] JIGAR@[facility] Surgical Oncology 01/11/21 Robert Lomax MD 55 [facility] [address] [place] [address] MARCELA@[facility] Cardiothoracic Surgery 07/03/22 08/18/23 Mary Sanon MD 55 [facility] 3 [place] [address] maria [email or web address] Radiation Oncology 07/03/22 Marcy Garvey RN 55 [facility] 3 [place] [address] [email or web address] Primary Infusion Nurse 10/23/23 11/19/23 Davina Peraza RN Associate Infusion Nurse 10/29/23 11/19/23 Davina Peraza RN 55 [place] [address] [email or web address] Primary Infusion Nurse 11/20/23 documented as of this encounter Additional Source Comments The information contained in this document represents components of the legal health record. It is not the complete legal health record.[facility]
--- OUTSIDE RECORDS SUMMARY | 2025-09-08 18:10 | XMS_ITS | Encounter Summary ---
Author Organization [facility] Address [address] [facility] [address] [place] [address] Phone Care Team Providers Care Analytics Director Name Role Phone Frankie Padron MD Primary Care Provider Saniya Tan MD Unavailable Domenic Goldsmith MD, PhD Unavailable [phone] Robert Lomax MD Unavailable [phone] Mary Sanon MD Unavailable Marcy Garvey RN Unavailable [email or web address] Davina Peraza RN Unavailable [email or web address] Davina Peraza RN Unavailable [email or web address] Encounter Details Date Type Department Care Team (Late st Contact Info) Description 06/07/2022 Procedure Pass [facility] [address] [place] [address] Social History Tobacco Use Types Packs/Day Years [...] Contact Info) Description 02/15/2025 Procedure Pass MRI, [facility] General Imaging - [place] [address] [facility], [address] [place] [address] 08/12/[address], [facility] General Imaging - [place] [address] [facility], [address] [place] [address] 08/12/[address], [facility] General Imaging - [place] [address] [facility], [address] [place] [address] 08/12/2025 Procedure Pass MRI, [facility] General Imaging - [place] [address] [facility], [address] [place] [address] 10/14/2025 1:00 PM EST Office Visit [facility] 165 [facility] 9th [place] [address] Bettina Braden MD [address] [place] [address] MARTÍN@[facility] 10/19/2025 3:00 PM EST Infusion [facility] at [address] [address] Hany Leach MD 02/06/2026 10:30 AM EDT Blood Draw [facility] Lab [address] [place] [address] Saniya Tan MD [address] [place] [address] DIALLO@[facility] 02/06/2026 11:[address], [facility] General Imaging - [place] 52 [facility], [address] [place] [address] Saniya Tan MD [address] [place] [address] DIALLO@[facility] 02/06/2026 12:30 PM EDT Appointment MRI, [facility] General Imaging - [place] 52 [facility], [address] [place] [address] Saniya Tan MD 55 [facility] 7E [place] [address] DIALLO@[facility] 02/07/2026 9:30 AM EDT Appointment MRI, [facility] - [address] [place] [address] Domenic Goldsmith MD, PhD 55 [facility] 7B [place] [address] JIGAR@[facility] 02/14/2026 11:00 AM EDT Office Visit [facility] 32 [facility], 7th Floor, [address] [place] [address] Saniya Tan MD [address] [place] [address] 7[address] [place] [address] DIALLO@[facility] 02/14/2026 11:00 AM EDT Office Visit [facility] 32 [facility], 7th Floor, [address] [place] [address] Roxana Ornelas MD 55 [facility] MAY 3 [place] [address] CHIN@[facility] 02/21/2026 10:00 AM EDT Telemedicine - audio only [facility] General & Gastrointestinal Surgery 55 [facility], 4th Floor, [address] [place] [address] Janie Blackmon FNP 55 [facility] 460 [place] [phone] [email or web address] g documented as of this encounter Visit Diagnoses Not on filedocumented in this encounter Care Teams Analytics Director Relationship Specialty Start Date End Date Frankie Padron MD [address] [place] [address] [place] [address] PCP - General Internal Medicine 07/16/19 Saniya Tan MD [address] [place], [place] DIALLO@[email or web address] Primary Oncologist Medical Oncology 12/22/20 Domenic Goldsmith MD, PhD [address] [place] [address] JIGAR@[facility] Surgical Oncology 01/11/21 Robert Lomax MD [address] [facility] [address] [facility] 7B [place] [address] MARCELA@[facility] Cardiothoracic Surgery 07/03/22 08/18/23 Mary Sanon MD 55 [facility] 3 [place] [address] maria [email or web address] Radiation Oncology 07/03/22 Marcy Garvey RN 55 [facility] 3 [place] [address] [email or web address] Primary Infusion Nurse 10/23/23 11/19/23 Davina Peraza RN Associate Infusion Nurse 10/29/23 11/19/23 Davina Peraza RN 55 [place] [address] [email or web address] Primary Infusion Nurse 11/20/23 documented as of this encounter Additional Source Comments The information contained in this document represents components of the legal health record. It is not the complete legal health record.[facility]
--- OUTSIDE RECORDS SUMMARY | 2025-09-08 18:10 | XMS_ITS | Encounter Summary ---
Author Organization [facility] Address [address] [place] [address] Phone Care Team Providers Care Internet Webmaster Name Role Phone Frankie Padron MD Primary Care Provider Saniya Tan MD Unavailable Domenic Goldsmith MD, PhD Unavailable [phone] Robert Lomax MD Unavailable Mary Sanon MD Unavailable Marcy Garvey RN Unavailable [email or web address] Davina Peraza RN Unavailable [email or web address] Davina Peraza RN Unavailable [email or web address] Encounter Details Date Type Department Care Team (Late st Contact Info) Description 10/19/2021 Procedure Pass [facility], Ct Scan - [address] [address] Social History Tobacco Use Types Packs/Day Years [...] Contact Info) Description 02/15/2025 Procedure Pass MRI, [facility] General Imaging - [place] [address] [facility], [address] [place] [address] 08/12/[address], [facility] General Imaging - [address] [facility], [address] [place] [address] 08/12/[address], [facility] General Imaging - [place] [address] [facility], [address] [place] [address] 08/12/2025 Procedure Pass MRI, [facility] General Imaging - [address] [facility], [address] [place] [address] 10/14/2025 1:00 PM EST Office Visit [facility] [address] [facility] 9th [place] [address] Bettina Braden MD [address] [place] [address] MARTÍN@[facility] 10/19/2025 3:00 PM EST Infusion [facility] at [address] [address] Hany Leach MD 02/06/2026 10:30 AM EDT Blood Draw [facility] Lab [address] [address] Saniya Tan MD [address] [place] [address] DIALLO@[facility] 02/06/2026 11:[address], [facility] General Imaging - [address] [facility], [address] [place] [address] Saniya Tan MD [address] [place] [address] DIALLO@[facility] 02/06/2026 12:30 PM EDT Appointment MRI, [facility] - [place] [address] [facility], [address] [place] [address] Saniya Tan MD [address] [facility] 7E [place] [address] DIALLO@[facility] 02/07/2026 9:30 AM EDT Appointment MRI, [facility] - [address], [address] [place] [address] Domenic Goldsmith MD, PhD [address] [facility] [address] [place] [address] JIGAR@[facility] 02/14/2026 11:00 AM EDT Office Visit [facility] 32 [facility], 7th Floor, [address] [place] [address] Saniya Tan MD [address] [place] [address] [address] [place] [address] DIALLO@[facility] 02/14/2026 11:00 AM EDT Office Visit [facility] 32 [facility], 7th Floor, [address] [place] [address] Roxana Ornelas MD [address] [place] [address] MAY 3 [place] [address] CHIN@[facility] 02/21/2026 10:00 AM EDT Telemedicine - audio only [facility] General & Gastrointestinal Surgery 55 [facility], 4th Floor, [address] [place] [address] Janie Blackmon FNP 55 [facility] 460 [place] [phone] [email or web address] g documented as of this encounter Visit Diagnoses Not on filedocumented in this encounter Care Teams Internet Webmaster Relationship Specialty Start Date End Date Frankie Padron MD [address] [place] [address] [place] [address] PCP - General Internal Medicine 07/16/19 Saniya Tan MD 55 [facility] YA [address] [place], [place] DIALLO@[facility] Primary Oncologist Medical Oncology 12/22/20 Domenic Goldsmith MD, PhD [address] [facility] [address] [place], [place] JIGAR@[email or web address] Surgical Oncology 01/11/21 Robert Lomax MD [facility] [address] [place] [address] MARCELA@[facility] Cardiothoracic Surgery 07/03/22 08/18/23 Mary Sanon MD 55 [facility] 3 [place] [address] maria [email or web address] Radiation Oncology 07/03/22 Marcy Garvey RN [address] [facility] 3 [place] [address] [email or web address] Primary Infusion Nurse 10/23/23 11/19/23 Davina Peraza RN Associate Infusion Nurse 10/29/23 11/19/23 Davina Peraza RN 55 [place] [address] [email or web address] Primary Infusion Nurse 11/20/23 documented as of this encounter Additional Source Comments The information contained in this document represents components of the legal health record. It is not the complete legal health record.[facility]
--- OUTSIDE RECORDS SUMMARY | 2025-09-08 18:10 | XMS_ITS | Encounter Summary ---
Author Organization [facility] Address [address] [facility] [address] [place] [address] Phone Care Team Providers Care Flooring Machine Feeder Name Role Phone Frankie Padron MD Primary Care Provider Saniya Tan MD Unavailable Domenic Goldsmith MD, PhD Unavailable [phone] Robert Lomax MD Unavailable Mary Sanon MD Unavailable Marcy Garvey RN Unavailable [email or web address] Davina Peraza RN Unavailable [email or web address] Davina Peraza RN Unavailable [email or web address] Encounter Details Date Type Department Care Team (Late st Contact Info) Description 06/16/[address], [facility] - [address], [address] [place] [address] Social History Tobacco Use Types Packs/Day Years [...] Contact Info) Description 02/15/2025 Procedure Pass MRI, [facility] - [address], [address] [place] [address] 08/12/[address], [facility] - [address] [facility], [address] [place] [address] 08/12/[address], [facility] - [address], [address] [place] [address] 08/12/2025 Procedure Pass MRI, [facility] - [address] [facility], [address] [place] [address] 10/14/2025 1:00 PM EST Office Visit [facility] [address] 9th [place] [address] Bettina Braden MD [address] [facility] 4 [place] [address] MARTÍN@[facility] 10/19/2025 3:00 PM EST Infusion [facility] at Sethi Woodruff [address] [place] [address] Hany Leach MD 02/06/2026 10:30 AM EDT Blood Draw [facility] Lab [place] [address] [facility] [address] [place] [address] Saniya Tan MD [address] [facility] YA [address] [place] [address] DIALLO@[facility] 02/06/2026 11:[address], [facility] - [address], [address] [place] [address] Saniya Tan MD 55 [facility] 7E [place] [address] DIALLO@[facility] 02/06/2026 12:30 PM EDT Appointment MRI, [facility] - [address], [address] [place] [address] Saniya Tan MD 55 [facility] 7E [place] [address] DIALLO@[facility] 02/07/2026 9:30 AM EDT Appointment MRI, [facility] - [address], [address] [place] [address] Domenic Goldsmith MD, PhD 55 [facility] [address] [place] [address] MQJUNIOR@[facility] 02/14/2026 11:00 AM EDT Office Visit [facility] 32 [facility], 7th Floor, [address] [place] [address] Saniya Tan MD 55 [facility] 7[address] [place] [address] DIALLO@[facility] 02/14/2026 11:00 AM EDT Office Visit [facility] 32 [facility], 7th Floor, [address] [place] [address] Roxana Ornelas MD 55 [facility] 3 [place] [address] CHIN@[facility] 02/21/2026 10:00 AM EDT Telemedicine - audio only [facility] General & Gastrointestinal Surgery 55 [facility], 4th Floor, [address] [place] [address] Janie Blackmon FNP 55 [facility] 460 [place] [phone] [email or web address] g documented as of this encounter Visit Diagnoses Not on filedocumented in this encounter Care Teams Flooring Machine Feeder Relationship Specialty Start Date End Date Frankie Padron MD [address] [place] [address] [place] [address] PCP - General Internal Medicine 07/16/19 Saniya Tan MD 55 [facility] 7E [place] [address] [email or web address] Primary Oncologist Medical Oncology 12/22/20 Domenic Goldsmith MD, PhD 55 [facility] [address] [place] [address] JIGAR@[email or web address] Surgical Oncology 01/11/21 Robert Lomax MD 55 [facility] [address] [place] [address] MARCELA@[facility] Cardiothoracic Surgery 07/03/22 08/18/23 Mary Sanon MD 55 [facility] 3 [place] [address] maria [email or web address] Radiation Oncology 07/03/22 Marcy Garvey RN [address] [facility] MAY 3 [place] [address] [email or web address] Primary Infusion Nurse 10/23/23 11/19/23 Davina Peraza RN Associate Infusion Nurse 10/29/23 11/19/23 Davina Peraza, RACHEL [address] [place] [address] [email or web address] Primary Infusion Nurse 11/20/23 documented as of this encounter Additional Source Comments The information contained in this document represents components of the legal health record. It is not the complete legal health record.[facility]
--- OUTSIDE RECORDS SUMMARY | 2025-09-08 18:10 | XMS_ITS | Encounter Summary ---
Author Organization [facility] Address [address] [place] [address] Phone Care Team Providers Care Airline Pilot Name Role Phone Frankie Padron MD Primary Care Provider Saniya Tan MD Unavailable Domenic Goldsmith MD, PhD Unavailable [phone] Mary Sanon MD Unavailable Marcy Garvey RN Unavailable [email or web address] Davina Peraza RN Unavailable [email or web address] Davina Peraza RN Unavailable [email or web address] Encounter Details Date Type Department Care Team (Late st Contact Info) Description 09/17/2023 Procedure Pass [facility] 55 [place] [id number] Social History Tobacco Use Types Packs/Day Years [...] [facility] General Imaging - [place] [address], [address] [place] [address] 08/12/[address], [facility] - [place] [address] [facility], [address] [place] [address] 08/12/[address], [facility] - [place] [address] [facility], [address] [place] [address] 08/12/2025 Procedure Pass MRI, [facility] - [place] [address] [facility], [address] [place] [address] 10/14/2025 1:00 PM EST Office Visit [facility] [address] 9th [place] [address] Bettina Braden MD 55 [facility] 4 [place] [address] MARTÍN@[facility] 10/19/2025 3:00 PM EST Infusion [facility] at [address] [address] Unknown, Hany, 02/06/2026 10:30 AM EDT Blood Draw [facility] Lab [place] [address] [place] [address] Saniya Tan MD 55 [facility] 7E [place] [address] DIALLO@[facility] 02/06/2026 11:[address], [facility] General Imaging - [address], [address] [place] [address] Saniya Tan MD 55 [facility] 7E [place] [address] DIALLO@[facility] 02/06/2026 12:30 PM EDT Appointment MRI, [facility] General Imaging - [address], [address] [place] [address] Saniya Tan MD 55 [facility] 7E [place] [address] DIALLO@[facility] 02/07/2026 9:30 AM EDT Appointment MRI, [facility] General Imaging - [address], [address] [place] [address] Domenic Goldsmith MD, PhD 55 [facility] 7B [place] [address] [email or web address] 02/14/2026 11:00 AM EDT Office [facility] 32 [facility], 7th Floor, [address] [place] [address] Saniya Tan MD [address] [place] [address] 7[address] [place] [address] DIALLO@[facility] 02/14/2026 11:00 AM EDT Office [facility] 32 [facility], 7th Floor, [address] [place] [address] Roxana Ornelas MD 55 [facility] 3 [place] [address] CHIN@[facility] 02/21/2026 10:00 AM EDT Telemedicine - audio only [facility] General & Gastrointestinal Surgery 55 [facility], 4th Floor, [address] [place] [address] Janie Blackmon, MANAGER LIFE 55 [facility] [address] [place] [phone] [email or web address] g documented as of this encounter Visit Diagnoses Not on filedocumented in this encounter Care Teams Airline Pilot Relationship Specialty Start Date End Date Frankie Padron MD [address] [place] [address] [place] [address] PCP - General Internal Medicine 07/16/19 Saniya Tan MD 55 [facility] [address] [place], [place] DIALLO@[email or web address] du Primary Oncologist Medical Oncology 12/22/20 Domenic Goldsmith MD, PhD 55 [facility] [address] [place], [place] [email or web address] u Surgical Oncology 01/11/21 Mary Sanon MD 55 [facility] 3 [place] [address] maria [email or web address].[place]. [facility] Radiation Oncology 07/03/22 Marcy Garvey RN 55 [facility] 3 [place] [address] [email or web address] Primary Infusion Nurse 10/23/23 11/19/23 Davina Peraza RN Associate Infusion Nurse 10/29/2311/03 Davina Peraza, RACHEL 55 [place] [address] [email or web address] Primary Infusion Nurse 11/20/23 documented as of this encounter Additional Source Comments The information contained in this document represents components of the legal health record. It is not the complete legal health record.[facility]
--- OUTSIDE RECORDS SUMMARY | 2025-09-08 18:11 | XMS_ITS | Encounter Summary ---
Author Organization [facility] Address [address] [facility] [address] [place] [address] Phone Care Team Providers Care Loss Prevention Officer Name Role Phone Frankie Padron MD Primary Care Provider Saniya Tan MD Unavailable Domenic Goldsmith MD, PhD Unavailable [phone] Robert Lomax MD Unavailable Mary Sanon MD Unavailable [phone] Marcy Garvey RN Unavailable [email or web address] Davina Peraza RN Unavailable [email or web address] Davina Peraza RN Unavailable [email or web address] Encounter Details Date Type Department Care Team (Late st Contact Info) Description 08/23/2019 Procedure Pass [facility]IVE [facility]PT [address] [place] [address] Social History Tobacco Use Types Packs/Day Years [...] Contact Info) Description 02/15/2025 Procedure Pass MRI, [facility] General Imaging - [place] [address], [address] [place] [address] 08/12/[address], [facility] General Imaging - [place] [address] [facility], [address] [place] [address] 08/12/[address], [facility] General Imaging - [place] [address], [address] [place] [address] 08/12/2025 Procedure Pass MRI, [facility] General Imaging - [place] [address] [place] [facility], [address] [place] [address] 10/14/2025 1:00 PM EST Office Visit [facility] [address] 9th [place] [address] Bettina Braden MD [address] [place] [address] MARTÍN@[facility] 10/19/2025 3:00 PM EST Infusion [facility] at [address] [address] Hany Leach MD 02/06/2026 10:30 AM EDT Blood Draw [facility] [address] [place] [address] Saniya Tan MD [address] [place] [address] DIALLO@[facility] 02/06/2026 11:[address], [facility] General Imaging - [place] [address] [facility], [address] [place] [address] Saniya Tan MD [address] [place] [address] DIALLO@[facility] 02/06/2026 12:30 PM EDT Appointment MRI, [facility] General Imaging - [place] 52 [facility], [address] [place] [address] Saniya Tan MD 55 [facility] 7E [place] [address] DIALLO@[facility] 02/07/2026 9:30 AM EDT Appointment MRI, [facility] [place] 52 [facility], [address] [place] [address] Domenic Goldsmith MD, PhD [facility] 7[address] [place] [address] JIGAR@[facility] 02/14/2026 11:00 AM EDT Office Visit [facility] 32 [facility], 7th Floor, [address] [place] [address] Saniya Tan MD 55 [facility] 7[address] [place] [address] DIALLO@[facility] 02/14/2026 11:00 AM EDT Office [facility] 32 [facility], 7th Floor, [address] [place] [address] Roxana Ornelas MD 55 [facility] 3 [place] [address] CHIN@[email or web address] 02/21/2026 10:00 AM EDT Telemedicine - audio only [facility] G[facility] Surgery 55 [facility], 4th Floor, [address] [place] [address] Janie Blackmon FNP 55 [facility] 460 [place] [phone] [email or web address] g documented as of this encounter Visit Diagnoses Not on filedocumented in this encounter Additional Health Concerns Infection Onset Date Last Indicated Resolved Time Influenza 11/01/2019 11/01/2019 11/08/2019 1:23 AM EST documented as of this encounter Care Teams Loss Prevention Officer Relationship Specialty Start Date End Date Frankie Padron MD [address] [place] [address] Dr UREÑ[place] [address] PCP - General Internal Medicine 07/16/19 Saniya Tan MD [address] [place] [address] DIALLO@[facility] Primary Oncologist Medical Oncology 12/22/20 Domenic Goldsmith MD, PhD [address] [place] [address] JIGAR@[email or web address] Surgical Oncology 01/11/21 Robert Lomax MD [address] [facility] [address] [place] [address] MARCELA@[facility] Cardiothoracic Surgery 07/03/22 08/18/23 Mary Sanon MD 55 [facility] 3 [place] [address] maria [email or web address] Radiation Oncology 07/03/22 Marcy Garvey RN [address] [address] [email or web address] Primary Infusion Nurse 10/23/23 11/19/23 Davina Peraza RN Associate Infusion Nurse 10/29/23 11/19/23 Davina Peraza RN 55 [place] [address] [email or web address] Primary Infusion Nurse 11/20/23 documented as of this encounter Additional Source Comments The information contained in this document represents components of the legal health record. It is not the complete legal health record.[facility]
--- OUTSIDE RECORDS SUMMARY | 2025-09-08 18:11 | XMS_ITS | Encounter Summary ---
Author Organization [facility] Address [address] [place] [address] Phone Care Team Providers Care Inking Machine Tender Name Role Phone Frankie Padron MD Primary Care Provider Saniya Tan MD Unavailable Domenic Goldsmith MD, PhD Unavailable [phone] Mary Saonn MD Unavailable [phone] Davina Peraza RN Unavailable [email or web address] Encounter Details Date Type Department Care Team (Late st Contact Info) Description 07/26/2024 Procedure Pass [facility] [place] [place] [facility] [address] [place] [address] Social History Tobacco Use Types [...] Contact Info) Description 02/15/2025 Procedure Pass MRI, [facility] - [address], [address] [place] [address] 08/12/[address], [facility] - [address] [facility], [address] [place] [address] 08/12/[address], [facility] - [address], [address] [place] [address] 08/12/2025 Procedure Pass MRI, [facility] - [address] [facility], [address] [place] [address] 10/14/2025 1:00 PM EST Office Visit [facility] [place] [place] [facility] [address] 9th [place] [address] Bettina Braden MD 55 [facility] 4 [place] [address] MARTÍN@[email or web address] 10/19/2025 3:00 PM EST Infusion [facility] at [facility] 30 [place] [address] Hany Leach MD 02/06/2026 10:30 AM EDT Blood Draw [facility] [place] Lab [address] [place] [address] Saniya Tan MD 55 [facility] 7E [place] [address] DIALLO@[email or web address] 02/06/2026 11:[address], [facility] General Imaging - [address], [address] [place] [address] Saniya Tan MD 55 [facility] 7E [place] [address] [email or web address]@[email or web address] 02/06/2026 12:30 PM EDT Appointment MRI, [facility] General Imaging - [address], [address] [place] [address] Saniya Tan MD 55 [facility] 7E [place] [address] [email or web address]@[email or web address] 02/07/2026 9:30 AM EDT Appointment MRI, [facility] - [address], [address] [place] [address] Domenic Godlsmith MD, PhD 55 [facility] [address]B [place] [address] [email or web address] 02/14/2026 11:00 AM EDT Office Visit [facility] 32 [facility], 7th Floor, [address] [place] [address] Saniya Tan MD 55 [facility] 7E [place] [address] DIALLO@[email or web address] 02/14/2026 11:00 AM EDT Office Visit [facility] 32 [facility], 7th Floor, [address] [place] [address] Roxana Ornelas MD 55 [facility] 3 [place] [address] CHIN@[email or web address] 02/21/2026 10:00 AM EDT Telemedicine - audio only [facility] [place] General & Gastrointestinal Surgery 55 [facility], 4th Floor, [address] [place] [address] Janie Blackmon FNP 55 [facility] 460 [place] [phone] [email or web address] g documented as of this encounter Visit Diagnoses Not on filedocumented in this encounter Care Teams Inking Machine Tender Relationship Specialty Start Date End Date Frankie Padron MD [address] [place] [address] [place] [address] PCP - General Internal Medicine 07/16/19 Saniya Tan MD 55 [facility] 7E [place] [address] [email or web address] Primary Oncologist Medical Oncology 12/22/20 Domenic Goldsmith MD, PhD 55 [facility] 7B [place] [address] [email or web address] Surgical Oncology 01/11/21 Mary Sanon MD 55 [facility] 3 [place] [address] maria [email or web address] u Radiation Oncology 07/03/22 Davina Peraza, RACHEL 55 [place] [address] [email or web address] Primary Infusion Nurse 11/20/23 documented as of this encounter Additional Source Comments The information contained in this document represents components of the legal health record. It is not the complete legal health record.[facility]
--- OUTSIDE RECORDS SUMMARY | 2025-09-08 18:11 | XMS_ITS | Encounter Summary ---
Author Organization [facility] Address [address] [place] [address] Phone Care Team Providers Care Cena Name Role Phone Frankie Padron MD Primary Care Provider Saniya Tan MD Unavailable Domenic Goldsmith MD, PhD Unavailable [phone] Mary Sanon MD Unavailable [phone] Davina Peraza RN Unavailable [email or web address] Encounter Details Date Type Department Care Team (Late st Contact Info) Description 06/24/2025 Procedure Pass [facility] 55 [place] [id number] Social History Tobacco Use Types Packs/Day Years [...] as food, clothing, or medical care? No 06/24/2025 In the past 12 months have y ou been in a relationship with a person who hurts, threatens, or tries to control you? No 06/24/2025 Are you denied basic needs s uch as food, clothing, or medical care? No 06/24/2025 In the past 12 months have y ou been in a relationship with a person who hurts, threatens, or tries to control you? No 06/24/2025 Comments No Sex and Gender Information Value Date Recorded Sex Assigned at Female 04/16/2020 12:26 PM EDT Legal Sex Female 9:39 AM EDT Gender Identity Female 04/16/2020 12:26 PM EDT Sexual Orientation Straight 04/16/2020 12 :26 PM EDT documented as of this encounter Plan of Treatment Upcoming Encounters Date Type Department Care Team (Latest Contact Info) Description 02/15/2025 Procedure Pass MRI, [facility] - [address], [address] [place] [address] 08/12/[address], [facility] - [address], [address] [place] [address] 08/12/[address], [facility] [place] 52 [facility], [address] [place] [address] 08/12/2025 Procedure Pass MRI, [facility] - [address], [address] [place] [address] 10/14/2025 1:00 PM EST Office Visit [facility] 165 [facility] 9th [place] [address] Bettina Braden MD [address] [place] [address] MARTÍN@[email or web address] 10/19/2025 3:00 PM EST Infusion [facility] at [address] [address] Hany Leach MD 02/06/2026 10:30 AM EDT Blood Draw [facility] [address] [address] Saniya Tan MD [address] [address] DIALLO@[email or web address] 02/06/2026 11:[address], [facility] General Imaging - [address], [address] [place] [address] Saniya Tan MD [address] [place] [address] DIALLO@[facility] 02/06/2026 12:30 PM EDT Appointment MRI, [facility] - [address], [address] [place] [address] Saniya Tan MD [address] [place] [address] DIALLO@[email or web address] 02/07/2026 9:30 AM EDT Appointment MRI, [facility] - [address], [address] [place] [address] Domenic Goldsmith MD, PhD [address] [address] [email or web address] 02/14/2026 11:00 AM EDT Office Visit [facility] [address] [facility], 7th Floor, [address] [place] [address] Saniya Tan MD 55 [facility] 7E [place] [address] [email or web address] 02/14/2026 11:00 AM EDT Office Visit [facility] [address] [facility], 7th Floor, [address] [place] [address] Roxana Ornelas MD 55 [facility] 3 [place] [address] CHIN@[facility] 02/21/2026 10:00 AM EDT Telemedicine - audio only [facility] General & Gastrointestinal Surgery 55 [facility], 4th Floor, [address] [place] [address] Janie Blackmon FNP 55 [facility] 460 [place] [phone] [email or web address] g documented as of this encounter Visit Diagnoses Not on filedocumented in this encounter Care Teams Cena Relationship Specialty Start Date End Date Frankie Padron MD [address] [place] [address] [place] [address] PCP - General Internal Medicine 07/16/19 Saniya Tan MD 55 [facility] 7E [place] [address] [email or web address]@[email or web address] Primary Oncologist Medical Oncology 12/22/20 Domenic Goldsmith MD, PhD 55 [facility] 7B [place] [address] [email or web address] Surgical Oncology 01/11/21 Mary Sanon MD 55 [facility] 3 [place] [address] maria [email or web address] Radiation Oncology 07/03/22 Davina Peraza, RN [address] [place] [address] [email or web address] Primary Infusion Nurse 11/20/23 documented as of this encounter Additional Source Comments The information contained in this document represents components of the legal health record. It is not the complete legal health record.[facility]
--- OUTSIDE RECORDS SUMMARY | 2025-09-08 18:11 | XMS_ITS | Encounter Summary ---
Author Organization [facility] Address [address] [place] [address] [place] [address] Phone Care Team Providers Care Felt Pad Cutter Name Role Phone Frankie Padron MD Primary Care Provider Saniya Tan MD Unavailable Domenic Goldsmith MD, PhD Unavailable [phone] Robert Lomax MD Unavailable Mary Sanon MD Unavailable Marcy Garvey RN Unavailable [email or web address] Davina Peraza RN Unavailable [email or web address] Davina Peraza RN Unavailable [email or web address] Encounter Details Date Type Department Care Team (Late st Contact Info) Description 07/23/2019 Procedure Pass MRI, [facility] [address] [place] [address] Social History Tobacco Use Types Packs/Day Years Used Date Smoking Tobacco: Every Day Smokeless Tobacco: Never Comments Unknown Sex and Gender Information Value Date Recorded Sex Assigned at Female 04/16/2020 12:26 PM EDT Legal Sex Female 9:39 AM EDT Gender Identity Female 04/16/2020 12:26 PM EDT Sexual Orientation Straight 04/16/2020 12 :26 PM EDT documented as of this encounter Plan of Treatment Upcoming Encounters Date Type Department Care Team (Latest Contact Info) Description 02/15/2025 Procedure Pass MRI, [facility] [address] [facility], [address] [place] [address] 08/12/[address], [facility] - [place] [facility], [address] [place] [address] 08/12/[address], [facility] - [place] [address] [facility], [address] [place] [address] 08/12/2025 Procedure Pass MRI, [facility] - [address] [facility], [address] [place] [address] 10/14/2025 1:00 PM EST Office Visit [facility] [address] 9th [place] [address] Bettina Braden MD [address] [place] [address] MARTÍN@[facility] 10/19/2025 3:[address] [facility] at [address] [address] Hany Leach MD 02/06/2026 10:30 AM EDT Blood Draw [facility] Lab [address] [place] [address] Saniya Tan MD [address] [place] [address] DIALLO@[facility] 02/06/2026 11:[address], [facility] - [address] [facility], [address] [place] [address] Saniya Tan MD [address] [place] [address] DIALLO@[facility] 02/06/2026 12:30 PM EDT Appointment MRI, [facility] - [address] [facility], [address] [place] [address] Saniya Tan MD [address] [facility] 7E [place] [address] DIALLO@[facility] 02/07/2026 9:30 AM EDT Appointment MRI, [facility] - [address], [address] [place] [address] Domenic Goldsmith MD, PhD [address] [facility] [address] [place] [address] [email or web address] 02/14/2026 11:00 AM EDT Office Visit [facility] [address] [facility], 7th Floor, [address] [place] [address] Saniya Tan MD [address] [facility] 7E [place] [address] DIALLO@[facility] 02/14/2026 11:00 AM EDT Office Visit [facility] [address] [facility], 7th Floor, [address] [place] [address] Roxana Ornelas MD 55 [facility] [place] [facility] 3 [place] [address] CHIN@[email or web address] 02/21/2026 10:00 AM EDT Telemedicine - audio only [facility] General & Gastrointestinal Surgery 55 [facility], 4th Floor, [address] [place] [address] Janie Blackmon FNP 55 [facility] 460 [place] [phone] [email or web address] g documented as of this encounter Visit Diagnoses Not on filedocumented in this encounter Additional Health Concerns Infection Onset Date Last Indicated Resolved Time Influenza 11/01/2019 11/01/2019 11/08/2019 1:23 AM EST documented as of this encounter Care Teams Felt Pad Cutter Relationship Specialty Start Date End Date Frankie Padron MD [address] [place] [address] [place] [address] PCP - General Internal Medicine 07/16/19 Saniya Tan MD 55 [facility] [address] [place] [address] [email or web address] Primary Oncologist Medical Oncology 12/22/20 Domenic Goldsmith MD, PhD [address] [place] [address] [place] [address] JIGAR@[email or web address] Surgical Oncology 01/11/21 Robert Lomax MD [address] [facility] [address] [place] [address] MARCELA@[facility] Cardiothoracic Surgery 07/03/22 08/18/23 Mary Sanon MD 55 [facility] [place] [facility] 3 [place] [address] maria [email or web address] Radiation Oncology 07/03/22 Marcy Garvey RN 55 [facility] [place] [facility] 3 [place] [address] [email or web address] Primary Infusion Nurse 10/23/23 11/19/23 Davina Peraza RN Associate Infusion Nurse 10/29/23 11/19/23 Davina Peraza RN 55 [place] [address] [email or web address] Primary Infusion Nurse 11/20/23 documented as of this encounter Additional Source Comments The information contained in this document represents components of the legal health record. It is not the complete legal health record.[facility]
--- OUTSIDE RECORDS SUMMARY | 2025-09-08 18:11 | XMS_ITS | Encounter Summary ---
Author Organization [facility] Address [address] [place] [address] Phone Care Team Providers Care Utilities Operator Name Role Phone Frankie Padron MD Primary Care Provider Saniya Tan MD Unavailable Domenic Goldsmith MD, PhD Unavailable Mary Sanon MD Unavailable [phone] Davina Peraza RN Unavailable [email or web address] Encounter Details Date Type Department Care Team (Late st Contact Info) Description 03/09/[address], [facility] - [address] [place] [address] Social History Tobacco Use Types [...] Contact Info) Description 02/15/2025 Procedure Pass MRI, [facility] - [place] [address] [facility], [address] [place] [address] 08/12/[address], [facility] - [place] [address] [facility], [address] [place] [address] 08/12/[address], [facility] [place] [address] [facility], [address] [place] [address] 08/12/2025 Procedure Pass MRI, [facility] - [place] 52 [facility], [address] [place] [address] 10/14/2025 1:00 PM EST Office Visit [facility] 165 [facility] 9th [place] [address] Bettina Braden MD [address] [place] [address] MARTÍN@[email or web address] 10/19/2025 3:00 PM EST Infusion [facility] at [facility] 30 [place] [address] Hany Leach MD 02/06/2026 10:30 AM EDT Blood Draw [facility] [address] [address] Saniya Tan MD [address] [address] DIALLO@[facility] 02/06/2026 11:[address], [facility] - [address], [address] [place] [address] Saniya Tan MD [address] [place] [address] DIALLO@[facility] 02/06/2026 12:30 PM EDT Appointment MRI, [facility] - [address], [address] [place] [address] Saniya Tan MD [address] [place] [address] DIALLO@[facility] 02/07/2026 9:30 AM EDT Appointment MRI, [facility] - [address], [address] [place] [address] Domenic Goldsmith MD, PhD [address] [address] MQJUNIOR@[facility] 02/14/2026 11:00 AM EDT Office Visit [facility] 32 [facility], 7th Floor, [address] [place] [address] Saniya Tan MD [address] [address] DIALLO@[email or web address] 02/14/2026 11:00 AM EDT Office Visit [facility] 32 [facility], 7th Floor, [address] [place] [address] Roxana Ornelas MD 55 [facility] 3 [place] [address] CHIN@[email or web address] 02/21/2026 10:00 AM EDT Telemedicine - audio only [facility] General & Gastrointestinal Surgery 55 [facility], 4th Floor, [address] [place] [address] Janie Blackmon FNP 55 [facility] 460 [place] [phone] [email or web address] g documented as of this encounter Visit Diagnoses Not on filedocumented in this encounter Care Teams Utilities Operator Relationship Specialty Start Date End Date Frankie Padron MD [address] [place] [address] [place] [address] PCP - General Internal Medicine 07/16/19 Saniya Tan MD 55 [facility] 7E [place] [address] [email or web address] Primary Oncologist Medical Oncology 12/22/20 Domenic Goldsmith MD, PhD 55 [facility] 7B [place] [address] JIGAR@[email or web address] Surgical Oncology 01/11/21 Mary Sanon MD 55 [facility] 3 [place] [address] [email or web address] [email or web address] u Radiation Oncology 07/03/22 Davina Peraza, RN [address] [place] [address] [email or web address] Primary Infusion Nurse 11/20/23 documented as of this encounter Additional Source Comments The information contained in this document represents components of the legal health record. It is not the complete legal health record.[facility]
--- OUTSIDE RECORDS SUMMARY | 2025-09-08 18:11 | XMS_ITS | Encounter Summary ---
Author Organization [facility] Address [address] [place] [address] Phone Care Team Providers Care Head Automatic Sawyer Name Role Phone Frankie Padron MD Primary Care Provider Saniya Tan MD Unavailable Domenic Goldsmith MD, PhD Unavailable [phone] Mary Sanon MD Unavailable [phone] Davina Peraza RN Unavailable [email or web address] Encounter Details Date Type Department Care Team (Late st Contact Info) Description 05/24/2025 Procedure Pass MRI, [facility] - [address], [address] [place] [address] Social History Tobacco Use Types [...] Procedure Pass MRI, [facility] [place] [address] [facility], [address] [place] [address] 08/12/[address], [facility] [place] [address] [facility], [address] [place] [address] 08/12/[address], [facility] [place] [address] [facility], [address] [place] [address] 08/12/2025 Procedure Pass MRI, [facility] [place] 52 [facility], [address] [place] [address] 10/14/2025 1:00 PM EST Office Visit [facility] 165 [facility] 9th [place] [address] Bettina Braden MD [address] [place] [address] MARTÍN@[facility] 10/19/2025 3:00 PM EST Infusion [facility] [place] [address] [place] [address] Hany Leach MD 02/06/2026 10:30 AM EDT Blood Draw [facility] Lab [address] [address] Saniya Tan MD [address] [address] DIALLO@[facility] 02/06/2026 11:[address], [facility] - [address], [address] [place] [address] Saniya Tan MD [address] [place] [address] DIALLO@[facility] 02/06/2026 12:30 PM EDT Appointment MRI, [facility] - [address], [address] [place] [address] Saniya Tan MD [address] [place] [address] DIALLO@[facility] 02/07/2026 9:30 AM EDT Appointment MRI, [facility] - [address], [address] [place] [address] Domenic Goldsmith MD, PhD [address] [address] MQJNUIOR@[facility] 02/14/2026 11:00 AM EDT Office Visit [facility] 32 [facility], 7th Floor, [address] [place] [address] Saniya Tan MD [address] [address] DIALLO@[facility] 02/14/2026 11:00 AM EDT Office Visit [facility] 32 [facility], 7th Floor, [address] [place] [address] Roxana Ornelas MD 55 [facility] 3 [place] [address] CHIN@[facility] 02/21/2026 10:00 AM EDT Telemedicine - audio only [facility] General & Gastrointestinal Surgery 55 [facility], 4th Floor, [address] [place] [address] Janie Blackmon FNP 55 [facility] 460 [place] [phone] [email or web address] g documented as of this encounter Visit Diagnoses Not on filedocumented in this encounter Care Teams Head Automatic Sawyer Relationship Specialty Start Date End Date Frankie Padron MD [address] [place] [address] [place] [address] PCP - General Internal Medicine 07/16/19 Saniya Tan MD 55 [facility] [address]E [place] [address] DIALLO@[facility] Primary Oncologist Medical Oncology 12/22/20 Domenic Goldsmith MD, PhD 55 [facility] 7B [place] [address] JIGAR@[facility] Surgical Oncology 01/11/21 Mary Sanon MD 55 [facility] 3 [place] [address] [email or web address] u Radiation Oncology 07/03/22 Davina Peraza, RN [address] [place] [address] [email or web address] Primary Infusion Nurse 11/20/23 documented as of this encounter Additional Source Comments The information contained in this document represents components of the legal health record. It is not the complete legal health record.[facility]
--- OUTSIDE RECORDS SUMMARY | 2025-09-08 18:11 | XMS_ITS | Encounter Summary ---
Author Organization [facility] Address [address] [place] [address] Phone Care Team Providers Care Enrobing Machine Feeder Name Role Phone Frankie Padron MD Primary Care Provider Saniya Tan MD Unavailable Domenic Goldsmith MD, PhD Unavailable [phone] Mary Sanon MD Unavailable [phone] Davina Peraza RN Unavailable [email or web address] Encounter Details Date Type Department Care Team (Late st Contact Info) Description 03/09/2025 Procedure Pass MRI, [facility] - [address], [address] [place] [address] Social History Tobacco Use Types [...] Procedure Pass MRI, [facility] [place] [address] [facility], [address] [place] [address] 08/12/[address], [facility] [place] [address] [facility], [address] [place] [address] 08/12/[address], [facility] [place] [address] [facility], [address] [place] [address] 08/12/2025 Procedure Pass MRI, [facility] [place] 52 [facility], [address] [place] [address] 10/14/2025 1:00 PM EST Office Visit [facility] 165 [facility] 9th [place] [address] Bettina Braden MD [address] [place] [address] MARTÍN@[facility] 10/19/2025 3:00 PM EST Infusion [facility] [place] 30 [place] [address] Hany Leach MD 02/06/2026 10:30 AM EDT Blood Draw [facility] Lab [address] [address] Saniya Tan MD [address] [address] DIALLO@[facility] 02/06/2026 11:[address], [facility] - [address], [address] [place] [address] Saniya Tan MD [address] [place] [address] DIALLO@[facility] 02/06/2026 12:30 PM EDT Appointment MRI, [facility] - [address], [address] [place] [address] Saniya Tan MD [address] [place] [address] DIALLO@[facility] 02/07/2026 9:30 AM EDT Appointment MRI, [facility] - [address], [address] [place] [address] Domenic Goldsmith MD, PhD [address] [address] MQJUNIOR@[facility] 02/14/2026 11:00 AM EDT Office [facility] 32 [facility], 7th Floor, [address] [place] [address] Saniya Tan MD [address] [address] DIALLO@[facility] 02/14/2026 11:00 AM EDT Office Visit [facility] 32 [facility], 7th Floor, [address] [place] [address] Roxana Ornelas MD 55 [facility] 3 [place] [address] CHIN@[facility] 02/21/2026 10:00 AM EDT Telemedicine - audio only [facility] General & Gastrointestinal Surgery 55 [facility], 4th Floor, [address] [place] [address] Janie Blackmon FNP 55 [facility] 460 [place] [phone] [email or web address] g documented as of this encounter Visit Diagnoses Not on filedocumented in this encounter Care Teams Enrobing Machine Feeder Relationship Specialty Start Date End Date Frankie Padron MD [address] [place] [address] [place] [address] PCP - General Internal Medicine 07/16/19 Saniya Tan MD 55 [facility] 7E [place] [address] DIALLO@[email or web address] Primary Oncologist Medical Oncology 12/22/20 Domenic Goldsmith MD, PhD 55 [facility] 7B [place] [address] JIGAR@[email or web address] Surgical Oncology 01/11/21 Mary Sanon MD 55 [facility] 3 [place] [address] [email or web address] [email or web address] u Radiation Oncology 07/03/22 Davina Peraza, RN [address] [place] [address] [email or web address] Primary Infusion Nurse 11/20/23 documented as of this encounter Additional Source Comments The information contained in this document represents components of the legal health record. It is not the complete legal health record.[facility]
--- OUTSIDE RECORDS SUMMARY | 2025-09-08 18:11 | XMS_ITS | Encounter Summary ---
Author Organization [facility] Address [address] [place] [address] Phone Care Team Providers Care Maintenance Coordinator Name Role Phone Frankie Padron MD Primary Care Provider Saniya Tan MD Unavailable Domenic Goldsmith MD, PhD Unavailable [phone] Mary Sanon MD Unavailable [phone] Davina Peraza RN Unavailable [email or web address] Encounter Details Date Type Department Care Team (Late st Contact Info) Description 05/24/[address], [facility] - [address], [address] [place] [address] Social History Tobacco Use Types [...] Contact Info) Description 02/15/2025 Procedure Pass MRI, [facility] [place] [address] [facility], [address] [place] [address] 08/12/[address], [facility] [place] [address] [facility], [address] [place] [address] 08/12/[address], [facility] [place] [address] [facility], [address] [place] [address] 08/12/2025 Procedure Pass MRI, [facility] [place] [address] [facility], [address] [place] [address] 10/14/2025 1:00 PM EST Office Visit [facility] 165 [facility] 9th [place] [address] Bettina Braden MD [address] [place] [address] MARTÍN@[facility] 10/19/2025 3:00 PM EST Infusion [facility] [place] 30 [place] [address] Hany Leach MD 02/06/2026 10:30 AM EDT Blood Draw [facility] Lab [address] [address] Saniya Tan MD [address] [address] DIALLO@[facility] 02/06/2026 11:[address], [facility] - [address], [address] [place] [address] Saniya Tan MD [address] [place] [address] DIALLO@[facility] 02/06/2026 12:30 PM EDT Appointment MRI, [facility] - [address], [address] [place] [address] Saniya Tan MD [address] [place] [address] DIALLO@[facility] 02/07/2026 9:30 AM EDT Appointment MRI, [facility] - [address], [address] [place] [address] Domenic Goldsmith MD, PhD [address] [address] MQJUNIOR@[facility] 02/14/2026 11:00 AM EDT Office Visit [facility] 32 [facility], 7th Floor, [address] [place] [address] Saniya Tan MD [address] [address] DIALLO@[facility] 02/14/2026 11:00 AM EDT Office Visit [facility] 32 [facility], 7th Floor, [address] [place] [address] Roxana Ornelas MD 55 [facility] 3 [place] [address] CHIN@[facility] 02/21/2026 10:00 AM EDT Telemedicine - audio only [facility] General & Gastrointestinal Surgery 55 [facility], 4th Floor, [address] [place] [address] Janie Blackmon FNP 55 [facility] 460 [place] [phone] [email or web address] g documented as of this encounter Visit Diagnoses Not on filedocumented in this encounter Care Teams Maintenance Coordinator Relationship Specialty Start Date End Date Frankie Padron MD [address] [place] [address] [place] [address] PCP - General Internal Medicine 07/16/19 Saniya Tan MD 55 [facility] 7E [place] [address] DIALLO@[facility] Primary Oncologist Medical Oncology 12/22/20 Domenic Goldsmith MD, PhD 55 [facility] 7B [place] [address] JIGAR@[facility] Surgical Oncology 01/11/21 Mary Sanon MD 55 [facility] 3 [place] [address] maria [email or web address] u Radiation Oncology 07/03/22 Davina Peraza, RN [address] [place] [address] [email or web address] Primary Infusion Nurse 11/20/23 documented as of this encounter Additional Source Comments The information contained in this document represents components of the legal health record. It is not the complete legal health record.[facility]
--- OUTSIDE RECORDS SUMMARY | 2025-09-08 18:11 | XMS_ITS | Encounter Summary ---
Author Organization [facility] Address [address] [facility] [address] [place] [address] Phone Care Team Providers Care Cow Buyer Name Role Phone Frankie Padron MD Primary Care Provider Saniya Tan MD Unavailable Domenic Goldsmith MD, PhD Unavailable [phone] Robert Lomax MD Unavailable [phone] Mary Sanon MD Unavailable [phone] Marcy Garvey RN Unavailable [email or web address] Davina Peraza RN Unavailable [email or web address] Davina Peraza RN Unavailable [email or web address] Encounter Details Date Type Department Care Team (Late st Contact Info) Description 05/07/2022 Procedure Pass [facility] Imaging - RF/IR [address] [place] [address] Social History Tobacco Use Types Packs/Day Years [...] Contact Info) Description 02/15/2025 Procedure Pass MRI, [facility] [place] [address] [facility], [address] [place] [address] 08/12/[address], [facility] [place] [address] [facility], [address] [place] [address] 08/12/[address], [facility] [place] [address] [facility], [address] [place] [address] 08/12/2025 Procedure Pass MRI, [facility] - [place] [address] [facility], [address] [place] [address] 10/14/2025 1:00 PM EST Office Visit [facility] 165 [facility] 9th [place] [address] Bettina Braden MD [address] [place] [address] 4 [place] [address] MARTÍN@[facility] 10/19/2025 3:00 PM EST Infusion [facility] at [address] [address] Hany Leach MD 02/06/2026 10:30 AM EDT Blood Draw [facility] Lab [address] [place] [address] Saniya Tan MD [address] [place] [address] DIALLO@[facility] 02/06/2026 11:[address], [facility] [place] 52 [facility], [address] [place] [address] Saniya Tan MD [address] [place] [address] 7[address] [place] [address] DIALLO@[facility] 02/06/2026 12:30 PM EDT Appointment MRI, [facility] [place] 52 [facility], [address] [place] [address] Saniya Tan MD 55 [facility] 7E [place] [address] DIALLO@[facility] 02/07/2026 9:30 AM EDT Appointment MRI, [facility] [place] 52 [facility], [address] [place] [address] Domenic Goldsmith MD, PhD 55 [facility] 7B [place] [address] JIGAR@[facility] 02/14/2026 11:00 AM EDT Office Visit [facility] [address] [facility], 7th Floor, [address] [place] [address] Saniya Tan MD [address] [place] [address] 7[address] [place] [address] DIALLO@[facility] 02/14/2026 11:00 AM EDT Office Visit [facility] [address] [facility], 7th Floor, [address] [place] [address] Roxana Ornelsa MD 55 [facility] 3 [place] [address] CHIN@[facility] 02/21/2026 10:00 AM EDT Telemedicine - audio only [facility] General & Gastrointestinal Surgery [address] [facility], 4th Floor, [address] [place] [address] Janie Blackmon FNP 55 [facility] 460 [place] [phone] [email or web address] g documented as of this encounter Visit Diagnoses Not on filedocumented in this encounter Care Teams Cow Buyer Relationship Specialty Start Date End Date Frankie Padron MD [address] [place] [address] [place] [address] PCP - General Internal Medicine 07/16/19 Saniya Tan MD 55 [facility] 7E [place] [address] DIALLO@[facility] Primary Oncologist Medical Oncology 12/22/20 Domenic Goldsmith MD, PhD [address] [facility] 7B [place] [address] JIGAR@[facility] Surgical Oncology 01/11/21 Robert Lomax MD 55 [facility] 7B [place] [address] MARCELA@[email or web address] Cardiothoracic Surgery 07/03/22 08/18/23 Mary Sanon MD 55 [facility] 3 [place] [address] maria [email or web address] Radiation Oncology 07/03/22 Marcy Garvey RN 55 [facility] 3 [place] [address] [email or web address] Primary Infusion Nurse 10/23/23 11/19/23 Davina Peraza RN Associate Infusion Nurse 10/29/23 11/19/23 Davina Peraza RN 55 [place] [address] [email or web address] Primary Infusion Nurse 11/20/23 documented as of this encounter Additional Source Comments The information contained in this document represents components of the legal health record. It is not the complete legal health record.[facility]
--- OUTSIDE RECORDS SUMMARY | 2025-09-08 18:11 | XMS_ITS | Encounter Summary ---
Author Organization [facility] Address [address] [place] [address] Phone Care Team Providers Care Nailer Machine Name Role Phone Frankie Padron MD Primary Care Provider Saniya Tan MD Unavailable Domenic Goldsmith MD, PhD Unavailable Mary Sanon MD Unavailable Davina Peraza RN Unavailable [email or web address] Encounter Details Date Type Department Care Team (Late st Contact Info) Description 05/24/[address], [facility] - [address] [place] [address] Social History Tobacco Use Types [...] Contact Info) Description 02/15/2025 Procedure Pass MRI, [facility] [place] [address] [facility], [address] [place] [address] 08/12/[address], [facility] [place] [address] [facility], [address] [place] [address] 08/12/[address], [facility] [place] [address] [facility], [address] [place] [address] 08/12/2025 Procedure Pass MRI, [facility] [place] [address] [facility], [address] [place] [address] 10/14/2025 1:00 PM EST Office Visit [facility] 165 [facility] 9th [place] [address] Bettina Braden MD [address] [place] [address] MARTÍN@[facility] 10/19/2025 3:00 PM EST Infusion [facility] [place] 30 [place] [address] Hany Leach MD 02/06/2026 10:30 AM EDT Blood Draw [facility] Lab [address] [address] Saniya Tan MD [address] [address] DIALLO@[facility] 02/06/2026 11:[address], [facility] - [address], [address] [place] [address] Saniya Tan MD [address] [place] [address] DIALLO@[facility] 02/06/2026 12:30 PM EDT Appointment MRI, [facility] - [address], [address] [place] [address] Saniya Tan MD [address] [place] [address] DIALLO@[facility] 02/07/2026 9:30 AM EDT Appointment MRI, [facility] - [address], [address] [place] [address] Domenic Goldsmith MD, PhD [address] [address] MQJUNIOR@[facility] 02/14/2026 11:00 AM EDT Office Visit [facility] [address] [facility], 7th Floor, [address] [place] [address] Saniya Tan MD [address] [address] DIALLO@[facility] 02/14/2026 11:00 AM EDT Office Visit [facility] [address] [facility], 7th Floor, [address] [place] [address] Roxana Ornelas MD 55 [facility] 3 [place] [address] CHIN@[facility] 02/21/2026 10:00 AM EDT Telemedicine - audio only [facility] General & Gastrointestinal Surgery 55 [facility], 4th Floor, [address] [place] [address] Janie Blackmon FNP 55 [facility] 460 [place] [phone] [email or web address] g documented as of this encounter Visit Diagnoses Not on filedocumented in this encounter Care Teams Nailer Machine Relationship Specialty Start Date End Date Frankie Padron MD [address] [place] [address] [place] [address] PCP - General Internal Medicine 07/16/19 Saniya Tan MD 55 [facility] 7E [place] [address] DIALLO@[facility] Primary Oncologist Medical Oncology 12/22/20 Domenic Goldsmith MD, PhD [address] [facility] 7B [place] [address] JIAGR@[facility] Surgical Oncology 01/11/21 Mary Sanon MD 55 [facility] 3 [place] [address] maria [email or web address] u Radiation Oncology 07/03/22 Davina Peraza, RN [address] [place] [address] [email or web address] Primary Infusion Nurse 11/20/23 documented as of this encounter Additional Source Comments The information contained in this document represents components of the legal health record. It is not the complete legal health record.[facility]
--- OUTSIDE RECORDS SUMMARY | 2025-09-08 18:11 | XMS_ITS | Encounter Summary ---
Author Organization [facility] Address [address] [facility] [address] [place] [address] Phone Care Team Providers Care Planning Official Name Role Phone Frankie Padron MD Primary Care Provider Saniya Tan MD Unavailable Domenic Goldsmith MD, PhD Unavailable [phone] Robert Lomax MD Unavailable Mary Sanon MD Unavailable [phone] Marcy Garvey RN Unavailable [email or web address] Davina Peraza RN Unavailable [email or web address] Davina Peraza RN Unavailable [email or web address] Encounter Details Date Type Department Care Team (Late st Contact Info) Description 06/01/2021 Procedure Pass [facility], [address] [address] Social History Tobacco Use Types Packs/Day Years [...] Contact Info) Description 02/15/2025 Procedure Pass MRI, [facility] General Imaging - [place] [address] [facility], [address] [place] [address] 08/12/[address], [facility] - [place] [address] [facility], [address] [place] [address] 08/12/[address], [facility] - [place] [address] [facility], [address] [place] [address] 08/12/2025 Procedure Pass MRI, [facility] General Imaging - [place] [address] [facility], [address] [place] [address] 10/14/2025 1:00 PM EST Office Visit [facility] [address] [facility] 9th [place] [address] Bettina Braden MD [address] [place] [address] MARTÍN@[facility] 10/19/2025 3:00 PM EST Infusion [facility] at [address] [address] Hany Leach MD 02/06/2026 10:30 AM EDT Blood Draw [facility] [place] [address] [facility] [place] [address] Saniya Tan MD [address] [place] [address] DIALLO@[facility] 02/06/2026 11:[address], [facility] General Imaging - [address] [facility], [address] [place] [address] Saniya Tan MD [address] [place] [address] [email or web address]@[facility] 02/06/2026 12:30 PM EDT Appointment MRI, [facility] General Imaging - [place] 52 [facility], [address] [place] [address] Saniya Tan MD 55 [facility] 7E [place] [address] [email or web address]@[email or web address] 02/07/2026 9:30 AM EDT Appointment MRI, [facility] Imaging - [place] 52 [facility], [address] [place] [address] Domenic Goldsmith MD, PhD 55 [facility] 7B [place] [address] JIGAR@[email or web address] 02/14/2026 11:00 AM EDT Office Visit [facility] [address] [facility], 7th Floor, [address] [place] [address] Saniya Tan MD [address] [place] [address] [address] [place] [address] DIALLO@[facility] 02/14/2026 11:00 AM EDT Office Visit [facility] [address] [facility], 7th Floor, [address] [place] [address] Roxana Ornelas MD 55 [facility] MAY 3 [place] [address] CHIN@[email or web address] 02/21/2026 10:00 AM EDT Telemedicine - audio only [facility] General & Gastrointestinal Surgery 55 [facility], 4th Floor, [address] [place] [address] Janie Blackmon FNP 55 [facility] 460 [place] [phone] [email or web address] g documented as of this encounter Visit Diagnoses Not on filedocumented in this encounter Care Teams Planning Official Relationship Specialty Start Date End Date Frankie Padron MD [address] [place] [address] [place] [address] PCP - General Internal Medicine 07/16/19 Saniya Tan MD 55 [facility] YA [address] [place], [place] [email or web address] Primary Oncologist Medical Oncology 12/22/20 Domenic Goldsmith MD, PhD [address] [facility] [address] [place] [address] JIGAR@[email or web address] Surgical Oncology 01/11/21 Robert Lomax MD [facility] [address] [place] [address] [email or web address]@[email or web address] Cardiothoracic Surgery 07/03/22 08/18/23 Mary Sanon MD [address] [facility] 3 [place] [address] [email or web address] [email or web address] Radiation Oncology 07/03/22 Marcy Garvey RN [address] 3 [place] [address] [email or web address] Primary Infusion Nurse 10/23/23 11/19/23 Davina Peraza RN Associate Infusion Nurse 10/29/23 11/19/23 Davina Peraza RN 55 [place] [address] [email or web address] Primary Infusion Nurse 11/20/23 documented as of this encounter Additional Source Comments The information contained in this document represents components of the legal health record. It is not the complete legal health record.[facility]
--- OUTSIDE RECORDS SUMMARY | 2025-09-08 18:11 | XMS_ITS | Encounter Summary ---
Author Organization [facility] Address [address] [place] [address] Phone Care Team Providers Care Asbestos Coverer Name Role Phone Frankie Padron MD Primary Care Provider Saniya Tan MD Unavailable Domenic Goldsmith MD, PhD Unavailable [phone] Mary Sanon MD Unavailable [phone] Davina Peraza RN Unavailable [email or web address] Encounter Details Date Type Department Care Team (Late st Contact Info) Description 08/26/2024 Procedure Pass [facility] Imaging - [place]/IR [address] [place] [address] Social History Tobacco Use Types Packs/Day Years [...] Contact Info) Description 02/15/2025 Procedure Pass MRI, [facility] Imaging - [address] [facility], [address] [place] [address] 08/12/[address], [facility] Imaging - [address] [facility], [address] [place] [address] 08/12/[address], [facility] Imaging - [address] [facility], [address] [place] [address] 08/12/2025 Procedure Pass MRI, [facility] Imaging - [place] [facility], [address] [place] [address] 10/14/2025 1:00 PM EST Office Visit [facility] [address] 9th [place] [address] Bettina Braden MD 55 [facility] 4 [place] [address] MARTÍN@[facility] 10/19/2025 3:00 PM EST Infusion [facility] [place] 30 [place] [address] Hany Leach MD 02/06/2026 10:30 AM EDT Blood Draw [facility] Lab [address] [place] [address] Saniya Tan MD 55 [facility] 7E [place] [address] DIALLO@[facility] 02/06/2026 11:[address], [facility] General Imaging - [address] [place] [address] Saniya Tan MD [address] [address] DIALLO@[facility] 02/06/2026 12:30 PM EDT Appointment MRI, [facility] Imaging - [address], [address] [place] [address] Saniya Tan MD [address] [address] DIALLO@[facility] 02/07/2026 9:30 AM EDT Appointment MRI, [facility] - [address], [address] [place] [address] Domenic Goldsmith MD, PhD [address] [address] [email or web address] 02/14/2026 11:00 AM EDT Office Visit [facility] [address] [facility], 7th Floor, [address] [place] [address] Saniya Tan MD [address] [place] [address] 7[address] [place] [address] DIALLO@[facility] 02/14/2026 11:00 AM EDT Office Visit [facility] 32 [facility], 7th Floor, [address] [place] [address] Roxana Ornelas MD 55 [facility] 3 [place] [address] CHIN@[email or web address] 02/21/2026 10:00 AM EDT Telemedicine - audio only [facility] General & Gastrointestinal Surgery 55 [facility], 4th Floor, [address] [place] [address] Janie Blackmon FNP [address] [facility] 460 [place] [phone] [email or web address] g documented as of this encounter Visit Diagnoses Not on filedocumented in this encounter Care Teams Asbestos Coverer Relationship Specialty Start Date End Date Frankie Padron MD [address] [place] [address] [place] [address] PCP - General Internal Medicine 07/16/19 Saniya Tan MD 55 [facility] 7E [place] [address] [email or web address] Primary Oncologist Medical Oncology 12/22/20 Domenic Goldsmith MD, PhD 55 [facility] 7B [place] [address] [email or web address] Surgical Oncology 01/11/21 Mary Sanon MD 55 [facility] 3 [place] [address] [email or web address] [email or web address] u Radiation Oncology 07/03/22 Davina Peraza, RACHEL 55 [place] [address] [email or web address] Primary Infusion Nurse 11/20/23 documented as of this encounter Additional Source Comments The information contained in this document represents components of the legal health record. It is not the complete legal health record.[facility]
--- OUTSIDE RECORDS SUMMARY | 2025-09-08 18:11 | XMS_ITS | Encounter Summary ---
Author Organization [facility] Address [address] [place] [address] Phone Care Team Providers Care Supervisor Research Kennel Name Role Phone Frankie Padron MD Primary Care Provider Saniya Tan MD Unavailable Domenic Goldsmith MD, PhD Unavailable [phone] Mary Sanon MD Unavailable [phone] Davina Peraza RN Unavailable [email or web address] Encounter Details Date Type Department Care Team (Late st Contact Info) Description 03/09/[address], [facility] - [address], [address] [place] [address] Social History Tobacco Use Types [...] Contact Info) Description 02/15/2025 Procedure Pass MRI, [facility] Imaging - [place] [address] [facility], [address] [place] [address] 08/12/[address], [facility] - [place] [address] [facility], [address] [place] [address] 08/12/[address], [facility] - [place] [address] [facility], [address] [place] [address] 08/12/2025 Procedure Pass MRI, [facility] - [place] 52 [facility], [address] [place] [address] 10/14/2025 1:00 PM EST Office Visit [facility] [address] [facility] 9th [place] [address] Bettina Braden MD [address] [place] [address] MARTÍN@[email or web address] 10/19/2025 3:00 PM EST Infusion [facility] at [place] 30 [place] [address] Hany Leach MD 02/06/2026 10:30 AM EDT Blood Draw [facility] Lab [address] [address] Saniya Tan MD [address] [address] DIALLO@[email or web address] 02/06/2026 11:[address], [facility] Imaging - [address] [place] [address] Saniya Tan MD [address] [place] [address] DIALLO@[email or web address] 02/06/2026 12:30 PM EDT Appointment MRI, [facility] - [address], [address] [place] [address] Saniya Tan MD [address] [place] [address] DIALLO@[email or web address] 02/07/2026 9:30 AM EDT Appointment MRI, [facility] - [address], [address] [place] [address] Domenic Goldsmtih MD, PhD [address] [address] [email or web address] 02/14/2026 11:00 AM EDT Office [facility] [place] [address] [facility], 7th Floor, [address] [place] [address] Saniya Tan MD [address] [address] DIALLO@[email or web address] 02/14/2026 11:00 AM EDT Office [facility] [place] 32 [facility], 7th Floor, [address] [place] [address] Roxana Ornelas MD 55 [facility] 3 [place] [address] [email or web address] 02/21/2026 10:00 AM EDT Telemedicine - audio only [facility] General & Gastrointestinal Surgery [address] [facility], 4th Floor, [address] [place] [address] Janie Blackmon FNP 55 [facility] 460 [place] [phone] [email or web address] g documented as of this encounter Visit Diagnoses Not on filedocumented in this encounter Care Teams Supervisor Research Kennel Relationship Specialty Start Date End Date Frankie Padron MD [address] [place] [address] [place] [address] PCP - General Internal Medicine 07/16/19 Saniya Tan MD [address] [facility] 7E [place] [address] [email or web address]@[email or web address] Primary Oncologist Medical Oncology 12/22/20 Domenic Goldsmith MD, PhD 55 [facility] 7B [place] [address] [email or web address] Surgical Oncology 01/11/21 Mary Sanon MD 55 [facility] 3 [place] [address] [email or web address] [email or web address] u Radiation Oncology 07/03/22 Davina Peraza, RN [address] [place] [address] [email or web address] Primary Infusion Nurse 11/20/23 documented as of this encounter Additional Source Comments The information contained in this document represents components of the legal health record. It is not the complete legal health record.[facility]
--- OUTSIDE RECORDS SUMMARY | 2025-09-08 18:11 | XMS_ITS | Encounter Summary ---
Author Organization [facility] Address [address] [place] [address] Phone Care Team Providers Care Sterilizer Operator Name Role Phone Frankie Padron MD Primary Care Provider Saniya Tan MD Unavailable Domenic Goldsmith MD, PhD Unavailable [phone] Mary Sanon MD Unavailable [phone] Davina Peraza RN Unavailable [email or web address] Encounter Details Date Type Department Care Team (Late st Contact Info) Description 12/07/2024 Procedure Pass MRI, [facility] Imaging - [address] [place] [address] Social History Tobacco Use Types [...] Info) Description 02/15/2025 Procedure Pass MRI, [facility] Imaging - [place] [address] [facility], [address] [place] [address] 08/12/[address], [facility] Imaging - [place] [address] [facility], [address] [place] [address] 08/12/[address], [facility] Imaging - [place] [address] [facility], [address] [place] [address] 08/12/2025 Procedure Pass MRI, [facility] Imaging - [place] [address] [facility], [address] [place] [address] 10/14/2025 1:00 PM EST Office Visit [facility] 165 [facility] 9th [place] [address] Bettina Braden MD [address] [place] [address] [email or web address] 10/19/2025 3:00 PM EST Infusion [facility] at [place] 30 [place] [address] Hany Leach MD 02/06/2026 10:30 AM EDT Blood Draw [facility] Lab [address] [address] Saniya Tna MD [address] [address] DIALLO@[email or web address] 02/06/2026 11:[address], [facility] Imaging - [address], [address] [place] [address] Saniya Tan MD [address] [place] [address] DIALLO@[facility] 02/06/2026 12:30 PM EDT Appointment MRI, [facility] - [address], [address] [place] [address] Saniya Tan MD [address] [place] [address] DIALLO@[facility] 02/07/2026 9:30 AM EDT Appointment MRI, [facility] - [address] [place] [address] Domenic Goldsmith MD, PhD [address] [address] [email or web address] 02/14/2026 11:00 AM EDT Office Visit [facility] [address] [facility], 7th Floor, [address] [place] [address] Saniya Tan MD [address] [address] [email or web address] 02/14/2026 11:00 AM EDT Office Visit [facility] [address] [facility], 7th Floor, [address] [place] [address] Roxana Ornelas MD 55 [facility] 3 [place] [address] CHIN@[facility] 02/21/2026 10:00 AM EDT Telemedicine - audio only [facility] General & Gastrointestinal Surgery 55 [facility], 4th Floor, [address] [place] [address] Janie Blackmon FNP 55 [facility] 460 [place] [phone] [email or web address] g documented as of this encounter Visit Diagnoses Not on filedocumented in this encounter Care Teams Sterilizer Operator Relationship Specialty Start Date End Date Frankie Padron MD [address] [place] [address] [place] [address] PCP - General Internal Medicine 07/16/19 Saniya Tan MD 55 [facility] 7E [place] [address] [email or web address] Primary Oncologist Medical Oncology 12/22/20 Domenic Goldsmith MD, PhD 55 [facility] 7B [place] [address] JIGAR@[email or web address] Surgical Oncology 01/11/21 Mary Sanon MD 55 [facility] 3 [place] [address] [email or web address] u Radiation Oncology 07/03/22 Davina Peraza, RN [address] [place] [address] [email or web address] Primary Infusion Nurse 11/20/23 documented as of this encounter Additional Source Comments The information contained in this document represents components of the legal health record. It is not the complete legal health record.[facility]
--- OUTSIDE RECORDS SUMMARY | 2025-09-08 18:11 | XMS_ITS | Encounter Summary ---
Author Organization [facility] Address 399 [facility] [address] [place] [address] Phone Care Team Providers Care Chief Enterprise Architect Name Role Phone Frankie Padron MD Primary Care Provider Saniya Tan MD Unavailable Domenic Goldsmith MD, PhD Unavailable Mary Sanon MD Unavailable [phone] Davina Peraza RN Unavailable [email or web address] Encounter Details Date Type Department Care Team (Late st Contact Info) Description 07/22/2024 Ancillary Orders [address] [address] Emigdio Hays MD [address] [place] [address] [email or web address] Pain (Primary Dx) Social History Tobacco Use Types [...] Pass MRI, [facility] - [address], [address] [place] [address] 08/12/[address], [facility] - [address], [address] [place] [address] 08/12/[address], [facility] - [address], [address] [place] [address] 08/12/2025 Procedure Pass MRI, [facility] - [address], [address] [place] [address] 10/14/2025 1:00 PM EST Office Visit [facility] [address] [facility] 9th [place] [address] Bettina Braden MD [address] [place] [address] [email or web address] 10/19/2025 3:[address] [facility] at [address] [address] Hany Leach MD 02/06/2026 10:30 AM EDT Blood Draw [facility] Lab [address] [place] [address] Saniya Tan MD [address] [address] [email or web address] 02/06/2026 11:[address], [facility] General Imaging - [address], [address] [place] [address] Saniya Tan MD [address] [address] DIALLO@[email or web address] 02/06/2026 12:30 PM EDT Appointment MRI, [facility] - [address], [address] [place] [address] Saniya Tan MD [address] [place] [address] [email or web address] 02/07/2026 9:30 AM EDT Appointment MRI, [facility] General Imaging - [address], [address] [place] [address] Domenic Goldsmith MD, PhD [address] [address] [email or web address] 02/14/2026 11:00 AM EDT Office Visit [facility] [address] [facility], 7th Floor, [address] [place] [address] Saniya Tan MD [address] [address] DIALLO@[email or web address] 02/14/2026 11:00 AM EDT Office Visit [facility] 32 [facility], 7th Floor, [address] [place] [address] Roxana Ornelas MD 55 [facility] MAY 3 [place] [address] [email or web address] 02/21/2026 10:00 AM EDT Telemedicine - audio only [facility] General & Gastrointestinal Surgery 55 [facility], 4th Floor, [address] [place] [address] Janie Blackmon FNP 55 [facility] 460 [place] [phone] [email or web address] g documented as of this encounter Results * [place] Fluoroscopy Guidance - No Charge (07/26/2024 9:39 AM EDT) 07/26/2024 3:19 PM EDT Narrative [facility] - 07/26/2024 3:19 PM EDT Dose (mGy): 0.989301 Dose Area Product (DAP): [id number] Dose Area Product (DAP) Units: mGy.m2 Fluoro time (min): 00:03 Number of Spot Films: 2 Procedure Note Resin Mixer, Dictation - 07/26/2024 Dose (mGy): 0.220299 Dose Area Product (DAP): [id number] Dose Area Product (DAP) Units: mGy.m2 Fluoro time (min): 00:03 Number of Spot Films: 2 J Keith Hays MD IMG [place] EXAMS Final Re sult [facility] [address] [place] [address] documented in this encounter Visit Diagnoses Diagnosis Pain- Primary Generalized pain Pain Generalized pain documented in this encounter Care Teams Chief Enterprise Architect Relationship Specialty Start Date End Date Frankie Padron MD [address] [place] [address] [place] [address] PCP - General Internal Medicine 07/16/19 Saniya Tan MD 55 [facility] [address] [place] [address] [email or web address] Primary Oncologist Medical Oncology 12/22/20 Domenic Goldsmith MD, PhD 55 [facility] 7B [place] [address] [email or web address] Surgical Oncology 01/11/21 Mary Sanon MD 55 [facility] 3 [place] [address] maria [email or web address] u Radiation Oncology 07/03/22 Davina Peraza, RN 55 [place] [address] [email or web address] Primary Infusion Nurse 11/20/23 documented as of this encounter Additional Source Comments The information contained in this document represents components of the legal health record. It is not the complete legal health record.[facility]
--- OUTSIDE RECORDS SUMMARY | 2025-09-08 18:11 | XMS_ITS | Encounter Summary ---
Author Organization [facility] Address [address] [facility] [address] [place] [address] Phone Care Team Providers Care Cargo Agent Name Role Phone Frankie Padron MD Primary Care Provider Saniya Tan MD Unavailable Domenic Goldsmith MD, PhD Unavailable [phone] Robert Lomax MD Unavailable Mary Sanon MD Unavailable Marcy Garvey RN Unavailable [email or web address] Davina Peraza RN Unavailable [email or web address] Davina Peraza RN Unavailable [email or web address] Encounter Details Date Type Department Care Team (Late st Contact Info) Description 10/20/2020 Procedure Pass [facility] - [facility], [facility] [address] [place] [address] Social History Tobacco Use Types Packs/Day Years [...] Contact Info) Description 02/15/2025 Procedure Pass MRI, [facility] - [place] [address] [facility], [address] [place] [address] 08/12/[address], [facility] - [place] [address] [facility], [address] [place] [address] 08/12/[address], [facility] - [place] [address] [facility], [address] [place] [address] 08/12/2025 Procedure Pass MRI, [facility] - [place] [address] [facility], [address] [place] [address] 10/14/2025 1:00 PM EST Office Visit [facility] 165 [facility] 9th [place] [address] Bettina Braden MD [address] [place] [address] MARTÍN@[email or web address] 10/19/2025 3:00 PM EST Infusion [facility] at [address] [address] Hany Leach MD 02/06/2026 10:30 AM EDT Blood Draw [facility] Lab [place] [address] [facility] [place] [address] Saniya Tan MD [address] [place] [address] DIALLO@[email or web address] 02/06/2026 11:[address], [facility] - [place] [address] [facility], [address] [place] [address] Saniya Tan MD [address] [place] [address] DIALLO@[email or web address] 02/06/2026 12:30 PM EDT Appointment MRI, [facility] - [place] 52 [facility], [address] [place] [address] Saniya Tan MD 55 [facility] 7E [place] [address] DIALLO@[email or web address] 02/07/2026 9:30 AM EDT Appointment MRI, [facility] - [address], [address] [place] [address] Domenic Goldsmith MD, PhD 55 [facility] 7B [place] [address] JIGAR@[email or web address] 02/14/2026 11:00 AM EDT Office Visit [facility] 32 [facility], 7th Floor, [address] [place] [address] Saniya Tan MD [address] [place] [address] [address] [place] [address] DIALLO@[facility] 02/14/2026 11:00 AM EDT Office Visit [facility] 32 [facility], 7th Floor, [address] [place] [address] Roxana Ornelas MD 55 [facility] 3 [place] [address] [email or web address] 02/21/2026 10:00 AM EDT Telemedicine - audio only [facility] General & Gastrointestinal Surgery 55 [facility], 4th Floor, [address] [place] [address] Janie Blackmon FNP 55 [facility] 460 [place] [phone] [email or web address] g documented as of this encounter Visit Diagnoses Not on filedocumented in this encounter Care Teams Cargo Agent Relationship Specialty Start Date End Date Frankie Padron MD [address] [place] [address] [place] [address] PCP - General Internal Medicine 07/16/19 Saniya Tan MD [address] [place], [place] [email or web address] Primary Oncologist Medical Oncology 12/22/20 Domenic Goldsmith MD, PhD [address] [place] [address] [email or web address] Surgical Oncology 01/11/21 Robert Lomax MD [address] [facility] [address] [place] [address] MARCELA@[email or web address] Cardiothoracic Surgery 07/03/22 08/18/23 Mary Sanon MD 55 [facility] 3 [place] [address] [email or web address] Radiation Oncology 07/03/22 Marcy Garvey RN 55 [facility] 3 [place] [address] [email or web address] Primary Infusion Nurse 10/23/23 11/19/23 Davina Peraza RN Associate Infusion Nurse 10/29/23 11/19/23 Davina Peraza RN 55 [place] [address] [email or web address] Primary Infusion Nurse 11/20/23 documented as of this encounter Additional Source Comments The information contained in this document represents components of the legal health record. It is not the complete legal health record.[facility]
== END 2025-09-08 15:24 | disposition home or self-care (01) ==
LOC: HO.HKA 15:04
PROVIDERS: PCP Physician Assistant; Visit Provider Internal Medicine Hypertension Specialist
DX: N17.9 Acute kidney failure, unspecified (principal)
CPT/HCPCS: 99214

== ENCOUNTER → 2025-09-08 15:03 | Outpatient (BNVA) | payer MEDICARE, SELFPAY | PROVIDERS: PCP Physician Assistant; Visit Provider Internal Medicine Hypertension Specialist | DX: N17.9 Acute kidney failure, unspecified (principal); Z09 Encounter for follow-up examination after completed treatment for conditions other than malignant neoplasm; E86.0 Dehydration; R19.7 Diarrhea, unspecified; Z87.891 Personal history of nicotine dependence; Z85.030 Personal history of malignant carcinoid tumor of large intestine | CPT/HCPCS: 99212 ==

== ENCOUNTER 2025-09-16 13:58 | Outpatient (AMB) | payer MEDICARE, SELFPAY ==
--- NOTE | 2025-09-16 14:03 | MHC.PC.OV ---
Vital Signs 09/16/25 14:10 Height 5 ft 2.8 in Weight 50.802 kg BMI 20.0 BP 110/56 L Blood Pressure Location Lt brachial Position Sitting Respiration 18 Pulse 80 Pulse Source Pulse Oximeter Temp 97.9 F Temp Source Temporal Artery Scan Pulse Oximetry (%) 97 Oxygen Delivery Method Room Air Intake Visit Reasons: 6 Month F/U - see comments Driver'S License Examiner Required: No Accompanied by: Self / Same As Patient Allergies infliximab (Remicade) Adverse Reaction (Unknown, Verified 09/16/25 14:03) arthralgia salacyclic acid wart remover Allergy (Unknown, Uncoded 08/22/25 11:27) hives, swollen joints Asacol Adverse Reaction (Unknown, Uncoded 08/22/25 11:27) GI upset Medication List - Last Reconciled 09/16/25 by TERRY Hernandez amlodipine 5 mg PO DAILY fluorouracil 5% appl topical BID ketoconazole 2% 1 appl topical QD-BID PRN magnesium oxide 800 mg (2 x 400 mg (241.3 mg magnesium)) PO DAILY metoprolol tartrate 12.5 mg (1/2 x 25 mg) PO BID Oxygen Home Use Discontinue supplemental oxygen. Resting O2 93% tamsulosin 0.4 mg PO DAILY PRN triamcinolone acetonide 0.1% topical BID trospium 20 mg PO BID Tobacco use date assessed: 03/11/25 Dental Screening Dental Screen Date: 03/11/25 HPI HPI Comments History of Present Illness Details 70-year-old female with history of hypertension as well as colon cancer with metastasis to the lungs presents to the office to follow-up. HTN- blood pressure 110/56. On amlodipine 5 mg daily and metoprolol 12.5 mg twice daily OUB- trospium and tamsulosin Hx colon cancer with lung mets- Follows with [facility]. She has undergone 2 resections in 2019 and May of 2024 and has a permanent colostomy which she manages herself. Completed 28 rounds of radiation as well as chemotherapy this summer. Underwent lung ablation and radiation for lung mets. Repeat scans reassuring. 6 month follow up. Used oxygen prn Concerns: Hospitalized at [facility] from 08/22-08/30 in 2 to [facility] secondary to GI losses complicated by acute metabolic acidosis due to acute tubular necrosis. Aggressive IV hydration with slow improvement in creatinine which went from 5.91 to 1.39. Ultimately tested positive for C diff and treated with p.o. vancomycin with resolution of high output diarrhea. Discharged on an additional 6 days of p.o. vancomycin completing 14 day course. To GI losses there was also symptomatic hypomagnesemia which resolved following repletion though was advised to continue on magnesium supplement on discharge. Has since followed with Nephrology and renal function has returned to baseline. Health Maintenace: Mammo 05/27, 1 year follow up, no evidence of malignancy Due for DEXA scan Colonoscopy [facility] ROS: General: No fevers, malaise, unintentional weight loss HEENT: No blurred vision, diplopia. No sore throat, nasal congestion, rhinorrhea, sinus pain, ear pain Cardiovascular: No chest pain, palpitations, or leg edema Respiratory: No shortness of breath, wheezing, cough GI: No abdominal pain, nausea, vomiting, diarrhea, constipation, melena, hematochezia : No dysuria, hematuria, increased urinary frequency, decreased urinary output MSK: No myalgia, back pain Neuro: No headaches, weakness, paresthesias Skin: No rashes or lesions EXAM: Constitutional - Awake and Alert, No apparent distress Eyes - PERRL Cardiovascular - S1S2, RRR, No edema Respiratory - Normal lung expansion, Normal respiratory effort, No respiratory distress, CTA bilaterally Extremities - no calf tenderness bilaterally, no swelling Skin - Warm/Dry Neurological - Alert & oriented x3 Psychological - Appropriate affect PFSH Medical History Anemia of chronic disease Hypertension Ureteral stent present Lung cancer Cancer of colon with rectum Surgical History S/P colon resection S/P CARLOS MANUEL-BSO (total abdominal hysterectomy and bilateral salpingo-oophorectomy) Hx of appendectomy Hx of tonsillectomy Family History Father Colon cancer Heart attack Social History Household Members: Spouse Housing: Condominium Do you presently have visiting nurse or other home services: No Alcohol intake: never Patient Tobacco Use Status: Former Tobacco user Tobacco use type: Cigarette Second Hand Smoke Exposure: No service: No Current occupational status: disabled Cognitive needs: No Hearing needs: No Vision needs: Yes (reading glasses) Questionnaire Thrive Questionnaire Date Thrive assessed: 08/23/25 LASHELL-7 AMB Questionnaire LASHELL-7 Date LASHELL - 7 assessed: 03/11/25 Source: Developed by Drs. Pito Mason, Adelita Mayers, Garrick Dubois and colleagues, with an educational yue from [employer]. Physical exam (Primary Care) Vital Signs: Last Vital Signs Temp 97.9 F 09/16/25 14:10 Pulse 80 09/16/25 14:10 Resp 18 09/16/25 14:10 BP 110/56 L 09/16/25 14:10 Pulse Ox 97 09/16/25 14:10 Oxygen Delivery Method Room Air 09/16/25 14:10 BMI result Body Mass Index 20.0 Tobacco/Smoking Status: Tobacco use Status Tobacco use date assessed 03/11/25 09/16/25 14:05 Patient Tobacco Use Status Former Tobacco user 09/16/25 14:05 Tobacco use type Cigarette 09/16/25 14:05 Thrive Assessment: Date of Thrive Assessment Date Thrive assessed 08/23/25 09/16/25 14:05 Coding Level of Care Code Est Pt Level 5 (95322) Complex EM visit Add On G2211 Diagnoses Hypertension I10 C. difficile colitis A04.72 Colon cancer C18.9 Acute kidney injury N17.9 Hospital discharge follow-up Z09 Time Spent (min) 50 Assessment & Plan Assessment & Plan (1) Hypertension: Code(s): I10 - Essential (primary) hypertension Category: Medical Plan: Controlled. Continue amlodipine 5 mg daily and metoprolol 12.5 mg twice daily (2) C. difficile colitis: Code(s): A04.72 - Enterocolitis due to Clostridium difficile, not specified as recurrent Category: Medical Plan: Completed course of p.o. vancomycin, diarrhea much improved. No further therapies at this time (3) Colon cancer: Code(s): C18.9 - Malignant neoplasm of colon, unspecified Category: Medical Plan: Continue following with [facility]. Repeat CT scan in 6 months. No current therapies. (4) Acute kidney injury: Code(s): N17.9 - Acute kidney failure, unspecified Plan: Due to GI losses with full resolution following IV fluids. Continue following Nephrology and avoid nephrotoxins (5) Hospital discharge follow-up: Code(s): Z09 - Encounter for follow-up examination after completed treatment for conditions other than malignant neoplasm Category: Medical Plan: Reviewed H&P, DC summary, labs, ID consult, CT Discharge medications reviewed and reconciled
[2025-09-16 14:10] VITALS: BP 110/56; PULSE 80; RESP 18; TEMP 36.6; O2SAT 97
--- OUTSIDE RECORDS SUMMARY | 2025-09-16 20:44 | XMS_ITS | Encounter Summary ---
Author Organization [facility] Address [address] [place] [address] Phone Care Team Providers Care Experimental Machinist Name Role Phone Frankie Padron MD Primary Care Provider Saniya Tan MD Unavailable Domenic Goldsmith MD, PhD Unavailable [phone] Mary Sanon MD Unavailable [phone] Davina Peraza RN Unavailable [email or web address] Encounter Details Date Type Department Care Team (Late st Contact Info) Description 12/07/[address], [facility] - [address], [address] [place] [address] Social History Tobacco Use Types [...] Pass MRI, [facility] - [place] [address] [facility], [address] [place] [address] 08/12/[address], [facility] - [place] [address] [facility], [address] [place] [address] 08/12/[address], [facility] - [place] [address] [facility], [address] [place] [address] 08/12/2025 Procedure Pass MRI, [facility] - [place] 52 [facility], [address] [place] [address] 10/14/2025 1:00 PM EST Office Visit [facility] 165 [facility] 9th [place] [address] Bettina Braden MD [address] [place] [address] [email or web address] 10/19/2025 3:00 PM EST Infusion [facility] at [place] [place] [place] [address] Hany Leach MD 02/06/2026 10:30 AM EDT Blood Draw [facility] Lab [address] [address] Saniya Tan MD [address] [address] DIALLO@[email or web address] 02/06/2026 11:[address], [facility] - [address], [address] [place] [address] Saniya Tan MD [address] [place] [address] DIALLO@[facility] 02/06/2026 12:30 PM EDT Appointment MRI, [facility] - [address], [address] [place] [address] Saniya Tan MD [address] [place] [address] DIALLO@[email or web address] 02/07/2026 9:30 AM EDT Appointment MRI, [facility] - [address], [address] [place] [address] Domenic Goldsmith MD, PhD [address] [address] [email or web address] 02/14/2026 11:00 AM EDT Office Visit [facility] 32 [facility], 7th Floor, [address] [place] [address] Saniya Tan MD [address] [address] [email or web address] 02/14/2026 11:00 AM EDT Office Visit [facility] 32 [facility], 7th Floor, [address] [place] [address] Roxana Ornelas MD 55 [facility] 3 [place] [address] [email or web address] 02/21/2026 10:00 AM EDT Telemedicine - audio only [facility] General & Gastrointestinal Surgery 55 [facility], 4th Floor, [address] [place] [address] Janie Blackmon FNP 55 [facility] [address] [place] [phone] [email or web address] g documented as of this encounter Visit Diagnoses Not on filedocumented in this encounter Care Teams Experimental Machinist Relationship Specialty Start Date End Date Frankie Padron MD [address] [place] [address] [place] [address] PCP - General Internal Medicine 07/16/19 Saniya Tan MD 55 [facility] [address]E [place] [address] [email or web address] Primary Oncologist Medical Oncology 12/22/20 Domenic Goldsmith MD, PhD 55 [facility] 7B [place] [address] [email or web address] Surgical Oncology 01/11/21 Mary Sanon MD 55 [facility] 3 [place] [address] [email or web address] Radiation Oncology 07/03/22 Davina Peraza, RN [address] [place] [address] [email or web address] Primary Infusion Nurse 11/20/23 documented as of this encounter Additional Source Comments The information contained in this document represents components of the legal health record. It is not the complete legal health record.[facility]
--- OUTSIDE RECORDS SUMMARY | 2025-09-16 20:44 | XMS_ITS | Encounter Summary ---
Author Organization [facility] Address [address] [place] [address] Phone Care Team Providers Care Bagman/Woman Name Role Phone Frankie Padron MD Primary Care Provider Saniya Tan MD Unavailable Domenic Goldsmith MD, PhD Unavailable [phone] Mary Sanon MD Unavailable [phone] Davina Peraza RN Unavailable [email or web address] Encounter Details Date Type Department Care Team (Late st Contact Info) Description 12/15/2024 Radiation Completion Encounter [facility] Dept of Radiation Oncology [address] [address] Ryan King MD [address] [place] [address] [email or web address] Social History Tobacco Use Types Packs/Day Years [...] MRI, [facility] General Imaging - [address], [address] [place] [address] 08/12/[address], [facility] General Imaging - [address], [address] [place] [address] 08/12/[address], [facility] General Imaging - [place] [address] [facility], [address] [place] [address] 08/12/2025 Procedure Pass MRI, [facility] Imaging - [address], [address] [place] [address] 10/14/2025 1:00 PM EST Office Visit [facility] 165 [facility] 9th [place] [address] Bettina Braden MD [address] [place] [address] MARTÍN@[facility] 10/19/2025 3:00 PM EST Infusion [facility] 30 [place] [address] Hany Leach MD 02/06/2026 10:30 AM EDT Blood Draw [facility] [address] [address] Saniya Tan MD [address] [address] DIALLO@[facility] 02/06/2026 11:[address], [facility] Imaging - [address], [address] [place] [address] Saniya Tan MD [address] [place] [address] DIALLO@[facility] 02/06/2026 12:30 PM EDT Appointment MRI, [facility] Imaging - [address], [address] [place] [address] Saniya Tan MD [address] [address] DIALLO@[facility] 02/07/2026 9:30 AM EDT Appointment MRI, [facility] Imaging - [address], [address] [place] [address] Domenic Goldsmith MD, PhD [address] [address] JIGAR@[facility] 02/14/2026 11:00 AM EDT Office Visit [facility] 32 [facility], 7th Floor, [address] [place] [address] Saniya Tan MD 55 [facility] 7E [place] [address] DIALLO@[facility] 02/14/2026 11:00 AM EDT Office Visit [facility] 32 [facility], 7th Floor, [address] [place] [address] Roxana Ornelas MD [address] [facility] 3 [place] [address] CHIN@[facility] 02/21/2026 10:00 AM EDT Telemedicine - audio only [facility] General & Gastrointestinal Surgery 55 [facility], 4th Floor, [address] [place] [address] Janie Blackmon FNP 55 [facility] 460 [place] [phone] [email or web address] g documented as of this encounter Visit Diagnoses Not on filedocumented in this encounter Care Teams Bagman/Woman Relationship Specialty Start Date End Date Frankie Padron MD [address] [place] [address] [place] [address] PCP - General Internal Medicine 07/16/19 Saniya Tan MD [address] [place] [address] [address] [place] [address] DIALLO@[facility] Primary Oncologist Medical Oncology 12/22/20 Domenic Goldsmith MD, PhD [address] [place] [address] [address] [place] [address] MQJUNIOR@[facility] Surgical Oncology 01/11/21 Mary Sanon MD [address] [address] [email or web address] u Radiation Oncology 07/03/22 Davina Peraza RN 55 [place] [address] [email or web address] Primary Infusion Nurse 11/20/23 documented as of this encounter Additional Source Comments The information contained in this document represents components of the legal health record. It is not the complete legal health record.[facility]
--- OUTSIDE RECORDS SUMMARY | 2025-09-16 20:44 | XMS_ITS | Encounter Summary ---
Author Organization [facility] Address [address] [place] [address] Phone Care Team Providers Care Cathode Ray Tube Salvage Processor Name Role Phone Frankie Padron MD Primary Care Provider Saniya Tan MD Unavailable Domenic Goldsmith MD, PhD Unavailable [phone] Mary Sanon MD Unavailable [phone] Davina Peraza RN Unavailable [email or web address] Encounter Details Date Type Department Care Team (Late st Contact Info) Description 09/23/[address], [facility] - [address], [address] [place] [address] Social History Tobacco Use Types [...] Contact Info) Description 02/15/2025 Procedure Pass MRI, [facility] General Imaging - [place] [address] [facility], [address] [place] [address] 08/12/[address], [facility] General Imaging - [place] [address] [facility], [address] [place] [address] 08/12/[address], [facility] General Imaging - [place] [address] [facility], [address] [place] [address] 08/12/2025 Procedure Pass MRI, [facility] General Imaging - [place] [address] [facility], [address] [place] [address] 10/14/2025 1:00 PM EST Office Visit [facility] 165 [facility] 9th [place] [address] Bettina Braden MD [address] [place] [address] MARTÍN@[facility] 10/19/2025 3:00 PM EST Infusion [facility] [place] 30 [place] [address] Hany Leach MD 02/06/2026 10:30 AM EDT Blood Draw [facility] Lab [address] [address] Saniya Tan MD [address] [address] DIALLO@[facility] 02/06/2026 11:[address], [facility] - [address], [address] [place] [address] Saniya Tan MD [address] [place] [address] DIALLO@[facility] 02/06/2026 12:30 PM EDT Appointment MRI, [facility] - [address], [address] [place] [address] Saniya Tan MD [address] [place] [address] DIALLO@[facility] 02/07/2026 9:30 AM EDT Appointment MRI, [facility] - [address], [address] [place] [address] Domenic Goldsmith MD, PhD [address] [address] MQJUNIOR@[facility] 02/14/2026 11:00 AM EDT [facility] 32 [facility], 7th Floor, [address] [place] [address] Saniya Tan MD [address] [address] DIALLO@[facility] 02/14/2026 11:00 AM EDT Office Visit [facility] 32 [facility], 7th Floor, [address] [place] [address] Roxana Ornelas MD 55 [facility] 3 [place] [address] CHIN@[facility] 02/21/2026 10:00 AM EDT Telemedicine - audio only [facility] General & Gastrointestinal Surgery 55 [facility], 4th Floor, [address] [place] [address] Janie Blackmon FNP 55 [facility] 460 [place] [phone] [email or web address] g documented as of this encounter Visit Diagnoses Not on filedocumented in this encounter Care Teams Cathode Ray Tube Salvage Processor Relationship Specialty Start Date End Date Frankie Padron MD [address] [place] [address] [place] [address] PCP - General Internal Medicine 07/16/19 Saniya Tan MD 55 [facility] 7E [place] [address] DIALLO@[email or web address] Primary Oncologist Medical Oncology 12/22/20 Domenic Goldsmith MD, PhD [address] [facility] 7B [place] [address] JIGAR@[email or web address] Surgical Oncology 01/11/21 Mary Sanon MD 55 [facility] 3 [place] [address] [email or web address] u Radiation Oncology 07/03/22 Davina Peraza, RN [address] [place] [address] [email or web address] Primary Infusion Nurse 11/20/23 documented as of this encounter Additional Source Comments The information contained in this document represents components of the legal health record. It is not the complete legal health record.[facility]
--- OUTSIDE RECORDS SUMMARY | 2025-09-16 20:44 | XMS_ITS | Encounter Summary ---
Author Organization [facility] Address [address] [place] [address] Phone Care Team Providers Care Life Insurance Agent Name Role Phone Frankie Padron MD Primary Care Provider Saniya Tan MD Unavailable Domenic Goldsmith MD, PhD Unavailable [phone] Mary Sanon MD Unavailable [phone] Davina Peraza RN Unavailable [email or web address] Encounter Details Date Type Department Care Team (Late st Contact Info) Description 12/07/[address], [facility] Imaging - [address], [address] [place] [address] Social History Tobacco Use Types [...] MRI, [facility] - [place] [address] [facility], [address] [place] [address] 08/12/[address], [facility] - [place] [address] [facility], [address] [place] [address] 08/12/[address], [facility] - [place] [address] [facility], [address] [place] [address] 08/12/2025 Procedure Pass MRI, [facility] - [place] [address] [facility], [address] [place] [address] 10/14/2025 1:00 PM EST Office Visit [facility] 165 [facility] 9th [place] [address] Bettina Braden MD [address] [place] [address] MARTÍN@[email or web address] 10/19/2025 3:00 PM EST Infusion [facility] [place] 30 [place] [address] Hany Leach MD 02/06/2026 10:30 AM EDT Blood Draw [facility] [address] [address] Saniya Tan MD [address] [address] DIALLO@[facility] 02/06/2026 11:[address], [facility] Imaging - [address], [address] [place] [address] Saniya Tan MD [address] [place] [address] DIALLO@[facility] 02/06/2026 12:30 PM EDT Appointment MRI, [facility] - [address], [address] [place] [address] Saniya Tan MD [address] [place] [address] DIALLO@[facility] 02/07/2026 9:30 AM EDT Appointment MRI, [facility] - [address], [address] [place] [address] Domenic Goldsmith MD, PhD [address] [address] MQJUNIOR@[facility] 02/14/2026 11:00 AM EDT Office Visit [facility] [address] [facility], 7th Floor, [address] [place] [address] Saniya Tan MD [address] [address] DIALLO@[email or web address] 02/14/2026 11:00 AM EDT Office Visit [facility] 32 [facility], 7th Floor, [address] [place] [address] Roxana Ornelas MD 55 [facility] 3 [place] [address] CHIN@[email or web address] [place] 02/21/2026 10:00 AM EDT Telemedicine - audio only [facility] General & Gastrointestinal Surgery 55 [facility], 4th Floor, [address] [place] [address] Janie Blackmon FNP 55 [facility] 460 [place] [phone] [email or web address] g documented as of this encounter Visit Diagnoses Not on filedocumented in this encounter Care Teams Life Insurance Agent Relationship Specialty Start Date End Date Frankie Padron MD [address] [place] [address] [place] [address] PCP - General Internal Medicine 07/16/19 Saniya Tan MD 55 [facility] 7E [place] [address] DIALLO@[email or web address] Primary Oncologist Medical Oncology 12/22/20 Domenic Goldsmith MD, PhD 55 [facility] 7B [place] [address] JIGAR@[facility] Surgical Oncology 01/11/21 Mary Sanon MD 55 [facility] 3 [place] [address] maria [email or web address] u Radiation Oncology 07/03/22 Davina Peraza, RN [address] [place] [address] [email or web address] Primary Infusion Nurse 11/20/23 documented as of this encounter Additional Source Comments The information contained in this document represents components of the legal health record. It is not the complete legal health record.[facility]
--- OUTSIDE RECORDS SUMMARY | 2025-09-16 20:44 | XMS_ITS | Encounter Summary ---
Author Organization [facility] Address [address] [place] [address] Phone Care Team Providers Care Rrt Name Role Phone Frankie Padron MD Primary Care Provider Saniya Tan MD Unavailable Domenic Goldsmith MD, PhD Unavailable [phone] Mary Sanon MD Unavailable [phone] Davina Peraza RN Unavailable [email or web address] Encounter Details Date Type Department Care Team (Late st Contact Info) Description 09/23/[address], [facility] Imaging - [address], [address] [place] [address] Social History Tobacco Use Types [...] Contact Info) Description 02/15/2025 Procedure Pass MRI, [facility] General Imaging - [place] [address] [facility], [address] [place] [address] 08/12/[address], [facility] - [place] [address] [facility], [address] [place] [address] 08/12/[address], [facility] - [place] [address] [facility], [address] [place] [address] 08/12/2025 Procedure Pass MRI, [facility] - [place] [address] [facility], [address] [place] [address] 10/14/2025 1:00 PM EST Office Visit [facility] 165 [facility] 9th [place] [address] Bettina Braden MD [address] [place] [address] MARTÍN@[email or web address] 10/19/2025 3:00 PM EST Infusion [facility] [place] 30 [place] [address] Hany Leach MD 02/06/2026 10:30 AM EDT Blood Draw [facility] Lab [address] [address] Saniya Tan MD [address] [address] DIALLO@[facility] 02/06/2026 11:[address], [facility] Imaging - [address], [address] [place] [address] Saniya Tan MD [address] [place] [address] DIALLO@[facility] 02/06/2026 12:30 PM EDT Appointment MRI, [facility] - [address], [address] [place] [address] Saniya Tan MD [address] [place] [address] DIALLO@[facility] 02/07/2026 9:30 AM EDT Appointment MRI, [facility] - [address], [address] [place] [address] Domenic Goldsmith MD, PhD [address] [address] MQJUNIOR@[facility] 02/14/2026 11:00 AM EDT [facility] 32 [facility], 7th Floor, [address] [place] [address] Saniya Tan MD [address] [address] DIALLO@[facility] 02/14/2026 11:00 AM EDT Office Visit [facility] 32 [facility], 7th Floor, [address] [place] [address] Roxana Ornelas MD 55 [facility] 3 [place] [address] CHIN@[facility] 02/21/2026 10:00 AM EDT Telemedicine - audio only [facility] General & Gastrointestinal Surgery 55 [facility], 4th Floor, [address] [place] [address] Janie Blackmon FNP 55 [facility] 460 [place] [phone] [email or web address] g documented as of this encounter Visit Diagnoses Not on filedocumented in this encounter Care Teams Rrt Relationship Specialty Start Date End Date Frankie Padron MD [address] [place] [address] [place] [address] PCP - General Internal Medicine 07/16/19 Saniya Tan MD 55 [facility] 7E [place] [address] DIALLO@[facility] Primary Oncologist Medical Oncology 12/22/20 Domenic Goldsmith MD, PhD 55 [facility] 7B [place] [address] JIGAR@[facility] Surgical Oncology 01/11/21 Mary Sanon MD 55 [facility] 3 [place] [address] maria [email or web address] u Radiation Oncology 07/03/22 Davina Peraza, RN [address] [place] [address] [email or web address] Primary Infusion Nurse 11/20/23 documented as of this encounter Additional Source Comments The information contained in this document represents components of the legal health record. It is not the complete legal health record.[facility]
--- OUTSIDE RECORDS SUMMARY | 2025-09-16 20:44 | XMS_ITS | Encounter Summary ---
Author Organization [facility] Address [address] [place] [address] Phone Care Team Providers Care Patient Care Technician Instructor Name Role Phone Frankie Padron MD Primary Care Provider Saniya Tan MD Unavailable Domenic Goldsmith MD, PhD Unavailable [phone] Mary Sanon MD Unavailable [phone] Davina Peraza RN Unavailable [email or web address] Encounter Details Date Type Department Care Team (Late st Contact Info) Description 03/09/2024 Procedure Pass MRI, [facility] - [address], [address] [place] [address] Social History Tobacco Use Types [...] Contact Info) Description 02/15/2025 Procedure Pass MRI, [facility] General Imaging - [address] [facility], [address] [place] [address] 08/12/[address], [facility] - [place] [facility], [address] [place] [address] 08/12/[address], [facility] - [place] [address] [facility], [address] [place] [address] 08/12/2025 Procedure Pass MRI, [facility] - [address] [facility], [address] [place] [address] 10/14/2025 1:00 PM EST Office Visit [facility] [address] 9th [place] [address] Bettina Braden MD [address] [place] [address] MARTÍN@[facility] 10/19/2025 3:00 PM EST Infusion [facility] at [address] [address] Hany Leach MD 02/06/2026 10:30 AM EDT Blood Draw [facility] [place] 52 [place] [address] Saniya Tan MD [address] [place] [address] DIALLO@[facility] 02/06/2026 11:[address], [facility] Imaging - [address] [facility], [address] [place] [address] Saniya Tan MD [address] [place] [address] DIALLO@[facility] 02/06/2026 12:30 PM EDT Appointment MRI, [facility] - [place] 52 [facility], [address] [place] [address] Saniya Tan MD 55 [facility] 7E [place] [address] DIALLO@[facility] 02/07/2026 9:30 AM EDT Appointment MRI, [facility] - [address], [address] [place] [address] Domenic Goldsmith MD, PhD [address] [address] MQJUNIOR@[facility] 02/14/2026 11:00 AM EDT Office Visit [facility] 32 [facility], 7th Floor, [address] [place] [address] Saniya Tan MD 55 [facility] 7E [place] [address] DIALLO@[facility] 02/14/2026 11:00 AM EDT Office Visit [facility] 32 [facility], 7th Floor, [address] [place] [address] Roxana Ornelas MD 55 [facility] 3 [place] [address] CHIN@[facility] 02/21/2026 10:00 AM EDT Telemedicine - audio only [facility] General & Gastrointestinal Surgery 55 [facility], 4th Floor, [address] [place] [address] Janie Blackmon FNP 55 [facility] 460 [place] [address] marismary [email or web address] g documented as of this encounter Visit Diagnoses Not on filedocumented in this encounter Care Teams Patient Care Technician Instructor Relationship Specialty Start Date End Date Frankie Padron MD [address] [place] [address] [place] [address] PCP - General Internal Medicine 07/16/19 Saniya Tan MD 55 [facility] [address] [place] [address] DIALLO@[facility] Primary Oncologist Medical Oncology 12/22/20 Domenic Goldsmith MD, PhD 55 [facility] 7B [place] [address] JIGAR@[facility] Surgical Oncology 01/11/21 Mary Sanon MD 55 [facility] 3 [place] [address] [email or web address] [email or web address] u Radiation Oncology 07/03/22 Davina Peraza RN 55 [place] [address] [email or web address] Primary Infusion Nurse 11/20/23 documented as of this encounter Additional Source Comments The information contained in this document represents components of the legal health record. It is not the complete legal health record.[facility]
--- OUTSIDE RECORDS SUMMARY | 2025-09-16 20:44 | XMS_ITS | Encounter Summary ---
Author Organization [facility] Address [address] [place] [address] Phone Care Team Providers Care Material Handling Technician Name Role Phone Frankie Padron MD Primary Care Provider Saniya Tan MD Unavailable Domenic Goldsmith MD, PhD Unavailable [phone] Mary Sanon MD Unavailable [phone] Davina Peraza RN Unavailable [email or web address] Encounter Details Date Type Department Care Team (Late st Contact Info) Description 10/20/2024 Documentation [facility] [address] [place] [address] Jennifer Hudson [address] [address] Social History Tobacco Use Types Packs/Day Years [...] Contact Info) Description 02/15/2025 Procedure Pass MRI, [facility] - [address], [address] [place] [address] 08/12/[address], [facility] - [address], [address] [place] [address] 08/12/[address], [facility] Imaging - [address], [address] [place] [address] 08/12/2025 Procedure Pass MRI, [facility] - [address], [facility] 140 [place] [address] 10/14/2025 1:00 PM EST Office Visit [facility] [address] [facility] 9th [place] [address] Bettina Braden MD [address] [place] [address] MARTÍN@[facility] 10/19/2025 3:00 PM EST Infusion [facility] [address] [place] [address] Hany Leach MD 02/06/2026 10:30 AM EDT Blood Draw [facility] Lab [address] [address] Saniya Tan MD [address] [address] DIALLO@[email or web address] 02/06/2026 11:[address], [facility] - [address], [address] [place] [address] Saniya Tan MD [address] [place] [address] DIALLO@[facility] 02/06/2026 12:30 PM EDT Appointment MRI, [facility] - [address], [address] [place] [address] Saniya Tan MD [address] [place] [address] DIALLO@[facility] 02/07/2026 9:30 AM EDT Appointment MRI, [facility] - [address], [address] [place] [address] Domenic Goldsmith MD, PhD [address] [address] JIGAR@[facility] 02/14/2026 11:00 AM EDT Office Visit [facility] [address] [facility], 7th Floor, [address] [place] [address] Saniya Tan MD [address] [place] [address], [place] [address] DIALLO@[facility] 02/14/2026 11:00 AM EDT Office Visit [facility] [address] [facility], 7th Floor, [address] [place] [address] Roxana Ornelas MD 55 [facility] 3 [place] [address] CHIN@[email or web address] 02/21/2026 10:00 AM EDT Telemedicine - audio only [facility] General & Gastrointestinal Surgery [address] [facility], 4th Floor, [address] [place] [address] Janie Blackmon FNP [address] 460 [place] [phone] [email or web address] g documented as of this encounter Visit Diagnoses Not on filedocumented in this encounter Care Teams Material Handling Technician Relationship Specialty Start Date End Date Frankie Padron MD [address] [place] [address] [place] [address] PCP - General Internal Medicine 07/16/19 Saniya Tan MD 55 [facility] 7E [place] [address] DIALLO@[email or web address] Primary Oncologist Medical Oncology 12/22/20 Domenic Goldsmith MD, PhD [address] [place] [address] [address] [place] [address] [email or web address] Surgical Oncology 01/11/21 Mary Sanon MD 55 [facility] 3 [place], [place] maria [email or web address] u Radiation Oncology 07/03/22 Davina Peraza RN [address] [place] [address] [email or web address] Primary Infusion Nurse 11/20/23 documented as of this encounter Additional Source Comments The information contained in this document represents components of the legal health record. It is not the complete legal health record.[facility]
--- OUTSIDE RECORDS SUMMARY | 2025-09-16 20:44 | XMS_ITS | Encounter Summary ---
Author Organization [facility] Address [address] [place] [address] Phone Care Team Providers Care Rehabilitation Liaison Name Role Phone Frankie Padron MD Primary Care Provider Saniya Tan MD Unavailable Domenic Goldsmith MD, PhD Unavailable [phone] Mary Sanon MD Unavailable Davina Peraza RN Unavailable [email or web address] Encounter Details Date Type Department Care Team (Late st Contact Info) Description 09/23/2024 Procedure Pass MRI, [facility] - [address], [address] [place] [address] Social History Tobacco Use Types [...] Contact Info) Description 02/15/2025 Procedure Pass MRI, [facility] [place] [address] [facility], [address] [place] [address] 08/12/[address], [facility] [place] [address] [facility], [address] [place] [address] 08/12/[address], [facility] [place] [address] [facility], [address] [place] [address] 08/12/2025 Procedure Pass MRI, [facility] [place] [address] [facility], [address] [place] [address] 10/14/2025 1:00 PM EST Office Visit [facility] [address] [facility] 9th [place] [address] Bettina Braden MD [address] [place] [address] MARTÍN@[email or web address] 10/19/2025 3:00 PM EST Infusion [facility] 30 [place] [address] Hany Leach MD 02/06/2026 10:30 AM EDT Blood Draw [facility] Lab [address] [address] Saniya Tan MD [address] [address] DIALLO@[email or web address] 02/06/2026 11:[address], [facility] - [address], [address] [place] [address] Saniya Tan MD [address] [place] [address] DIALLO@[facility] 02/06/2026 12:30 PM EDT Appointment MRI, [facility] - [address], [address] [place] [address] Saniya Tan MD [address] [place] [address] DIALLO@[facility] 02/07/2026 9:30 AM EDT Appointment MRI, [facility] - [address], [address] [place] [address] Domenic Goldsmith MD, PhD [address] [address] MQJUNIOR@[facility] 02/14/2026 11:00 AM EDT [facility] [address] [facility], 7th Floor, [address] [place] [address] Saniya Tan MD [address] [address] DIALLO@[facility] 02/14/2026 11:00 AM EDT Office Visit [facility] [address] [facility], 7th Floor, [address] [place] [address] Roxana Ornelas MD [address] 3 [place] [address] CHIN@[email or web address] 02/21/2026 10:00 AM EDT Telemedicine - audio only [facility] General & Gastrointestinal Surgery 55 [facility], 4th Floor, [address] [place] [address] Janie Blackmon FNP 55 [facility] 460 [place] [phone] [email or web address] g documented as of this encounter Visit Diagnoses Not on filedocumented in this encounter Care Teams Rehabilitation Liaison Relationship Specialty Start Date End Date Frankie Padron MD [address] [place] [address] [place] [address] PCP - General Internal Medicine 07/16/19 Saniya Tan MD 55 [facility] 7E [place] [address] [email or web address], located [facility] Primary Oncologist Medical Oncology 12/22/20 Domenic Goldsmith MD, PhD 55 [facility] 7B [place] [address] [email or web address], located within [facility] Surgical Oncology 01/11/21 Mary Sanon MD [address] [facility] 3 [place] [address] [email or web address] u Radiation Oncology 07/03/22 Davina Peraza, RN [address] [place] [address] [email or web address] Primary Infusion Nurse 11/20/23 documented as of this encounter Additional Source Comments The information contained in this document represents components of the legal health record. It is not the complete legal health record.[facility]
--- OUTSIDE RECORDS SUMMARY | 2025-09-16 20:44 | XMS_ITS | Encounter Summary ---
Author Organization [facility] Address [address] [facility] [place] [address] Phone Care Team Providers Care Time Checker Name Role Phone Frankie Padron MD Primary Care Provider Saniya Tan MD Unavailable Domenic Goldsmith MD, PhD Unavailable [phone] Mary Sanon MD Unavailable [phone] Davina Peraza RN Unavailable [email or web address] Encounter Details Date Type Department Care Team (Late st Contact Info) Description 12/24/2024 Procedure Pass [facility] PERIOPERATIVE DEPT 55 [place] [address] Social History Tobacco Use Types Packs/Day Years [...] Contact Info) Description 02/15/2025 Procedure Pass MRI, [facility] - [address], [address] [place] [address] 08/12/[address], [facility] - [address], [address] [place] [address] 08/12/[address], [facility] [place] [address] [facility], [address] [place] [address] 08/12/2025 Procedure Pass MRI, [facility] - [address], [address] [place] [address] 10/14/2025 1:00 PM EST Office Visit [facility] [address] [facility] 9th [place] [address] Bettina Braden MD [address] [place] [address] MARTÍN@[email or web address] 10/19/2025 3:00 PM EST Infusion [facility] at [address] [address] Hany Leach MD 02/06/2026 10:30 AM EDT Blood Draw [facility] Lab [address] [address] Saniya Tan MD [address] [address] DIALLO@[email or web address] 02/06/2026 11:[address], [facility] Imaging - [address], [address] [place] [address] Saniya Tan MD [address] [place] [address] DIALLO@[email or web address] 02/06/2026 12:30 PM EDT Appointment MRI, [facility] - [address], [address] [place] [address] Saniya Tan MD [address] [place] [address] DIALLO@[email or web address] 02/07/2026 9:30 AM EDT Appointment MRI, [facility] - [address], [address] [place] [address] Domenic Goldsmith MD, PhD [address] [address] MQADAN@[facility] 02/14/2026 11:00 AM EDT Office [facility] 32 [facility], 7th Floor, [address] [place] [address] Saniya Tan MD 55 [facility] 7E [place] [address] [email or web address] 02/14/2026 11:00 AM EDT Office [facility] 32 [facility], 7th Floor, [address] [place] [address] Roxana Ornelas MD 55 [facility] 3 [place] [address] CHIN@[email or web address] 02/21/2026 10:00 AM EDT Telemedicine - audio only [facility] General & Gastrointestinal Surgery 55 [facility], 4th Floor, [address] [place] [address] Janie Blackmon FNP 55 [facility] 460 [place] [phone] [email or web address] g documented as of this encounter Visit Diagnoses Not on filedocumented in this encounter Care Teams Time Checker Relationship Specialty Start Date End Date Frankie Padron MD [address] [place] [address] [place] [address] PCP - General Internal Medicine 07/16/19 Saniya Tan MD 55 [facility] 7[address] [place] [address] DIALLO@[email or web address] Primary Oncologist Medical Oncology 12/22/20 Domenic Goldsmith MD, PhD 55 [facility] 7[address] [place] [address] [email or web address] Surgical Oncology 01/11/21 Mary Sanon MD 55 [facility] 3 [place] [address] maria [email or web address] u Radiation Oncology 07/03/22 Davina Peraza, RN [address] [place] [address] [email or web address] Primary Infusion Nurse 11/20/23 documented as of this encounter Additional Source Comments The information contained in this document represents components of the legal health record. It is not the complete legal health record.[facility]
--- OUTSIDE RECORDS SUMMARY | 2025-09-16 20:45 | XMS_ITS | Encounter Summary ---
Author Organization [facility] Address [address] [place] [address] Phone Care Team Providers Care Hotel Reservationist Name Role Phone Frankie Padron MD Primary Care Provider Saniya Tan MD Unavailable Domenic Goldsmith MD, PhD Unavailable [phone] Robert Lomax MD Unavailable Mary Sanon MD Unavailable [phone] Maryc Garvey RN Unavailable [email or web address] Davina Peraza RN Unavailable [email or web address] Davina Peraza RN Unavailable [email or web address] Encounter Details Date Type Department Care Team (Late st Contact Info) Description 05/28/2023 Procedure Pass [facility] PERIOPERATIVE DEPT [address] [place] [address] Social History Tobacco Use Types Packs/Day Years [...] Contact Info) Description 02/15/2025 Procedure Pass MRI, [facility] [place] [address] [facility], [address] [place] [address] 08/12/[address], [facility] [place] [address] [facility], [address] [place] [address] 08/12/[address], [facility] - [address] [facility], [address] [place] [address] 08/12/2025 Procedure Pass MRI, [facility] - [address] [facility], [address] [place] [address] 10/14/2025 1:00 PM EST Office Visit [facility] [address] 9th [place] [address] Bettina Braden MD 55 [facility] 4 [place] [address] MARTÍN@[facility] 10/19/2025 3:00 PM EST Infusion [facility] [place] 30 [place] [address] Hany Leach MD 02/06/2026 10:30 AM EDT Blood Draw [facility] Lab [place] [address] [facility] [place] [address] Saniya Tan MD 55 [facility] [address] [place] [address] [email or web address] 02/06/2026 11:[address], [facility] Imaging - [address], [address] [place] [address] Saniya Tan MD [address] [address] DIALLO@[email or web address] 02/06/2026 12:30 PM EDT Appointment MRI, [facility] - [address], [address] [place] [address] Saniya Tan MD [address] [address] DIALLO@[email or web address] 02/07/2026 9:30 AM EDT Appointment MRI, [facility] - [address], [address] [place] [address] Domenic Goldsmith MD, PhD 55 [facility] [address] [place] [address] MQADAN@[email or web address] 02/14/2026 11:00 AM EDT Office Visit [facility] 32 [facility], 7th Floor, [address] [place] [address] Saniya Tan MD [address] [place] [address] 7[address] [place] [address] DIALLO@[facility] 02/14/2026 11:00 AM EDT Office Visit [facility] 32 [facility], 7th Floor, [address] [place] [address] Roxana Ornelas MD 55 [facility] 3 [place] [address] CHIN@[email or web address] 02/21/2026 10:00 AM EDT Telemedicine - audio only [facility] General & Gastrointestinal Surgery 55 [facility], 4th Floor, [address] [place] [address] Janie Blackmon FNP 55 [facility] 460 [place] [phone] [email or web address] g documented as of this encounter Visit Diagnoses Not on filedocumented in this encounter Care Teams Hotel Reservationist Relationship Specialty Start Date End Date Frankie Padron MD [address] [place] [address] [place] [address] PCP - General Internal Medicine 07/16/19 Saniya Tan MD 55 [facility] 7[address] [place] [address] [email or web address] Primary Oncologist Medical Oncology 12/22/20 Domenic Goldsmith MD, PhD 55 [facility] [address] [place] [address] JIGAR@[email or web address] Surgical Oncology 01/11/21 Robert Lomax MD 55 [facility] [address] [place] [address] MARCELA@[email or web address] Cardiothoracic Surgery 07/03/22 08/18/23 Mary Sanon MD 55 [facility] 3 [place] [address] maria [email or web address] Radiation Oncology 07/03/22 Marcy Garvey RN 55 [facility] 3 [place] [address] [email or web address] Primary Infusion Nurse 10/23/23 11/19/23 Davina Peraza RN Associate Infusion Nurse 10/29/23 11/19/23 Davina Peraza, RACHEL [address] [place] [address] [email or web address] Primary Infusion Nurse 11/20/23 documented as of this encounter Additional Source Comments The information contained in this document represents components of the legal health record. It is not the complete legal health record.[facility]
--- OUTSIDE RECORDS SUMMARY | 2025-09-16 20:45 | XMS_ITS | Encounter Summary ---
Author Organization [facility] Address [address] [place] [address] Phone Care Team Providers Care Health Sanitarian Name Role Phone Frankie Padron MD Primary Care Provider Saniya Tan MD Unavailable Domenic Goldsmith MD, PhD Unavailable [phone] Robert Lomax MD Unavailable [phone] Mary Sanon MD Unavailable [phone] Marcy Garvey RN Unavailable [email or web address] Davina Peraza RN Unavailable [email or web address] Davina Peraza RN Unavailable [email or web address] Encounter Details Date Type Department Care Team (Late st Contact Info) Description 11/03/[address], [facility] - [address], [address] [place] [address] Social History Tobacco Use Types Packs/Day Years [...] Contact Info) Description 02/15/2025 Procedure Pass MRI, [facility] [place] [facility], [address] [place] [address] 08/12/[address], [facility] - [address], [address] [place] [address] 08/12/[address], [facility] - [address] [facility], [address] [place] [address] 08/12/2025 Procedure Pass MRI, [facility] - [address] [facility], [address] [place] [address] 10/14/2025 1:00 PM EST Office Visit [facility] [address] [facility] 9th [place] [address] Bettina Braden MD [address] [place] [address] MARTÍN@[facility] 10/19/2025 3:00 PM EST Infusion [facility] at [address] [address] Hany Leach MD 02/06/2026 10:30 AM EDT Blood Draw [facility] [address] [address] Saniya Tan MD [address] [place] [address] DIALLO@[facility] 02/06/2026 11:[address], [facility] - [address] [facility], [address] [place] [address] Saniya Tan MD [address] [place] [address] DIALLO@[facility] 02/06/2026 12:30 PM EDT Appointment MRI, [facility] - [place] [address] [facility], [address] [place] [address] Saniya Tan MD [address] [place] [address] DIALLO@[facility] 02/07/2026 9:30 AM EDT Appointment MRI, [facility] [place] [address] [facility], [address] [place] [address] Domenic Goldsmith MD, PhD 55 [facility] [address] [place] [address] JIGAR@[email or web address] 02/14/2026 11:00 AM EDT Office Visit [facility] [address] [facility], 7th Floor, [address] [place] [address] Saniya Tan MD [address] [place] [address] [address] [place] [address] DIALLO@[facility] 02/14/2026 11:00 AM EDT Office Visit [facility] [address] [facility], 7th Floor, [address] [place] [address] Roxana Ornelas MD 55 [facility] 3 [place] [address] CHIN@[email or web address] 02/21/2026 10:00 AM EDT Telemedicine - audio only [facility] General & Gastrointestinal Surgery 55 [facility], 4th Floor, [address] [place] [address] Janie Blackmon FNP 55 [facility] 460 [place] [phone] [email or web address] g documented as of this encounter Visit Diagnoses Not on filedocumented in this encounter Care Teams Health Sanitarian Relationship Specialty Start Date End Date Frankie Padron MD [address] [place] [address] [place] [address] PCP - General Internal Medicine 07/16/19 Saniya Tan MD [address] [facility] [address] [place] DIALLO@[email or web address] Primary Oncologist Medical Oncology 12/22/20 Domenic Goldsmith MD, PhD 55 [facility] [address] [place], [place] [email or web address] Surgical Oncology 01/11/21 Robert Lomax MD [address] [facility] [address] [place] [address] MARCELA@[email or web address] Cardiothoracic Surgery 07/03/22 08/18/23 Mary Sanon MD 55 [facility] 3 [place] [address] maria [email or web address] Radiation Oncology 07/03/22 Marcy Garvey RN 55 [facility] 3 [place] [address] [email or web address] Primary Infusion Nurse 10/23/23 11/19/23 Davina Peraza RN Associate Infusion Nurse 10/29/23 11/19/23 Davina Peraza RN 55 [place] [address] [email or web address] Primary Infusion Nurse 11/20/23 documented as of this encounter Additional Source Comments The information contained in this document represents components of the legal health record. It is not the complete legal health record.[facility]
--- OUTSIDE RECORDS SUMMARY | 2025-09-16 20:45 | XMS_ITS | Encounter Summary ---
Author Organization [facility] Address [address] [facility] [address] [place] [address] Phone Care Team Providers Care Voice Over Announcer Name Role Phone Frankie Padron MD Primary Care Provider Saniya Tan MD Unavailable Domenic Goldsmith MD, PhD Unavailable Robert Lomax MD Unavailable Mary Sanon MD Unavailable Marcy Garvey RN Unavailable [email or web address] Davina Peraza RN Unavailable [email or web address] Davina Peraza RN Unavailable [email or web address] Encounter Details Date Type Department Care Team (Late st Contact Info) Description 02/17/2023 Procedure Pass [facility] [address] [place] [address] Social History Tobacco Use Types Packs/Day Years [...] [facility] - [place] [address] [facility], [address] [place] [address] 08/12/[address], [facility] [place] [address] [facility], [address] [place] [address] 08/12/[address], [facility] - [place] [address] [facility], [address] [place] [address] 08/12/2025 Procedure Pass MRI, [facility] - [place] [address] [facility], [address] [place] [address] 10/14/2025 1:00 PM EST Office Visit [facility] [address] [facility] 9th [place] [address] Bettina Braden MD [address] [place] [address] MARTÍN@[facility] 10/19/2025 3:00 PM EST Infusion [facility] at [address] [address] Hany Leach MD 02/06/2026 10:30 AM EDT Blood Draw [facility] [address] [place] [address] Saniya Tan MD [address] [place] [address] DIALLO@[facility] 02/06/2026 11:[address], [facility] - [place] [facility], [address] [place] [address] Saniya Tan MD [address] [place] [address] DIALLO@[facility] 02/06/2026 12:30 PM EDT Appointment MRI, [facility] - [place] 52 [facility], [address] [place] [address] Saniya Tan MD 55 [facility] 7E [place] [address] DIALLO@[facility] 02/07/2026 9:30 AM EDT Appointment MRI, [facility] Imaging - [address], [address] [place] [address] Domenic Goldsmith MD, PhD 55 [facility] [address]B [place] [address] JIGAR@[facility] 02/14/2026 11:00 AM EDT Office Visit [facility] 32 [facility], 7th Floor, [address] [place] [address] Saniya Tan MD [address] [place] [address] [address] [place] [address] DIALLO@[facility] 02/14/2026 11:00 AM EDT Office Visit [facility] 32 [facility], 7th Floor, [address] [place] [address] Roxana Ornelas MD 55 [facility] 3 [place] [address] CHIN@[email or web address] 02/21/2026 10:00 AM EDT Telemedicine - audio only [facility] General & Gastrointestinal Surgery 55 [facility], 4th Floor, [address] [place] [address] Janie Blackmon FNP 55 [facility] 460 [place] [phone] [email or web address] g documented as of this encounter Visit Diagnoses Not on filedocumented in this encounter Care Teams Voice Over Announcer Relationship Specialty Start Date End Date Frankie Padron MD [address] [place] [address] [place] [address] PCP - General Internal Medicine 07/16/19 Saniya Tan MD [address] [place], [place] DIALLO@[email or web address] Primary Oncologist Medical Oncology 12/22/20 Domeinc Goldsmith MD, PhD [address] [place] [address] JIGAR@[email or web address] Surgical Oncology 01/11/21 Robert Lomax MD [address] [facility] [address] [facility] [address] [place] [address] [email or web address] Cardiothoracic Surgery 07/03/22 08/18/23 Mary Sanon MD 55 [facility] 3 [place] [address] [email or web address] Radiation Oncology 07/03/22 Marcy Garvey RN 55 [facility] 3 [place] [address] [email or web address] Primary Infusion Nurse 10/23/23 11/19/23 Davina Peraza RN Associate Infusion Nurse 10/29/23 11/19/23 Davina Peraza RN 55 [place] [address] [email or web address] Primary Infusion Nurse 11/20/23 documented as of this encounter Additional Source Comments The information contained in this document represents components of the legal health record. It is not the complete legal health record.[facility]
--- OUTSIDE RECORDS SUMMARY | 2025-09-16 20:45 | XMS_ITS | Encounter Summary ---
Author Organization [facility] Address [address] [place] [address] Phone Care Team Providers Care Cow Tester Name Role Phone Frankie Padron MD Primary Care Provider Saniya Tan MD Unavailable Domenic Goldsmith MD, PhD Unavailable [phone] Robert Lomax MD Unavailable [phone] Mary Sanon MD Unavailable Marcy Garvey RN Unavailable [email or web address] Davina Peraza RN Unavailable [email or web address] Davina Peraza RN Unavailable [email or web address] Encounter Details Date Type Department Care Team (Late st Contact Info) Description 02/20/[address], [facility] Imaging - [address], [address] [place] [address] Social History Tobacco Use Types Packs/Day Years [...] Contact Info) Description 02/15/2025 Procedure Pass MRI, [facility] Imaging - [address], [address] [place] [address] 08/12/[address], [facility] - [address], [address] [place] [address] 08/12/[address], [facility] - [address] [facility], [address] [place] [address] 08/12/2025 Procedure Pass MRI, [facility] Imaging - [address], [address] [place] [address] 10/14/2025 1:00 PM EST Office Visit [facility] [address] [facility] 9th [place] [address] Bettina Brdaen MD [address] [place] [address] MARTÍN@[facility] 10/19/2025 3:00 PM EST Infusion [facility] at [address] [address] Hany Leach MD 02/06/2026 10:30 AM EDT Blood Draw [facility] Lab [address] [address] Saniya Tan MD [address] [place] [address] DIALLO@[facility] 02/06/2026 11:[address], [facility] - [address], [address] [place] [address] Saniya Tan MD [address] [place] [address] DIALLO@[facility] 02/06/2026 12:30 PM EDT Appointment MRI, [facility] Imaging - [place] [address] [facility], [address] [place] [address] Saniya Tan MD 55 [facility] 7[address] [place] [address] DIALLO@[facility] 02/07/2026 9:30 AM EDT Appointment MRI, [facility] - [place] 52 [facility], [address] [place] [address] Domenic Goldsmith MD, PhD 55 [facility] [address] [place] [address] JIGAR@[email or web address] 02/14/2026 11:00 AM EDT Office Visit [facility] 32 [facility], 7th Floor, [address] [place] [address] Saniya Tan MD [address] [place] [address] [address] [place] [address] DIALLO@[facility] 02/14/2026 11:00 AM EDT Office Visit [facility] 32 [facility], 7th Floor, [address] [place] [address] Roxana Ornelas MD 55 [facility] 3 [place] [address] CHIN@[facility] 02/21/2026 10:00 AM EDT Telemedicine - audio only [facility] General & Gastrointestinal Surgery 55 [facility], 4th Floor, [address] [place] [address] Janie Blackmon FNP 55 [facility] 460 [place] [phone] [email or web address].[email or web address] g documented as of this encounter Visit Diagnoses Not on filedocumented in this encounter Care Teams Cow Tester Relationship Specialty Start Date End Date Frankie Padron MD [address] [place] [address] [place] [address] PCP - General Internal Medicine 07/16/19 Saniya Tan MD 55 [facility] [address] [place] [address] [email or web address]@[email or web address] Primary Oncologist Medical Oncology 12/22/20 Domenic Goldsmith MD, PhD 55 [facility] [address] [place] [address] [email or web address] Surgical Oncology 01/11/21 Robert Lomax MD 55 [facility] [address] [place] [address] MARCELA@[email or web address] Cardiothoracic Surgery 07/03/22 08/18/23 Mary Sanon MD 55 [facility] 3 [place] [address] maria [email or web address] Radiation Oncology 07/03/22 Marcy Garvey RN 55 [facility] 3 [place] [address] [email or web address] Primary Infusion Nurse 10/23/23 11/19/23 Davina Peraza RN Associate Infusion Nurse 10/29/23 11/19/23 Davina Peraza RN 55 [place] [address] [email or web address] Primary Infusion Nurse 11/20/23 documented as of this encounter Additional Source Comments The information contained in this document represents components of the legal health record. It is not the complete legal health record.[facility]
--- OUTSIDE RECORDS SUMMARY | 2025-09-16 20:45 | XMS_ITS | Encounter Summary ---
Author Organization [facility] Address [address] [facility] [address] [place] [address] Phone Care Team Providers Care Mechanical Technician Name Role Phone Frankie Padron MD Primary Care Provider Saniya Tan MD Unavailable Domenic Goldsmith MD, PhD Unavailable [phone] Robert Lomax MD Unavailable [phone] Mary Sanon MD Unavailable Marcy Garvey RN Unavailable [email or web address] Davina Peraza RN Unavailable [email or web address] Davina Peraza RN Unavailable [email or web address] Encounter Details Date Type Department Care Team (Late st Contact Info) Description 10/25/2019 Transcribe Orders [facility] [address] [place] [address] Isabel Sequeira CNP [address] [address] [email or web address] Rectal cancer (Primary Dx) Social History Tobacco [...] Contact Info) Description 02/15/2025 Procedure Pass MRI, [facility] - [address], [address] [place] [address] 08/12/[address], [facility] Imaging - [address] [facility], [address] [place] [address] 08/12/[address], [facility] - [address] [facility], [address] [place] [address] 08/12/2025 Procedure Pass MRI, [facility] Imaging - [address] [facility], [address] [place] [address] 10/14/2025 1:00 PM EST Office Visit [facility] [address] 9th [place] [address] Bettina Braden MD [address] [place] [address] MARTÍN@[email or web address] 10/19/2025 3:00 PM EST Infusion [facility] at [address] [address] Hany Leach MD 02/06/2026 10:30 AM EDT Blood Draw [facility] Lab [address] [place] [address] Saniya Tan MD [address] [place] [address] DIALLO@[facility] 02/06/2026 11:[address], [facility] - [address] [facility], [address] [place] [address] Saniya Tan MD [address] [place] [address] DIALLO@[email or web address] 02/06/2026 12:30 PM EDT Appointment MRI, [facility] Imaging - [place] [address] [facility], [address] [place] [address] Saniya Tan MD 55 [facility] 7E [place] [address] DIALLO@[facility] 02/07/2026 9:30 AM EDT Appointment MRI, [facility] Imaging - [address], [address] [place] [address] Domenic Goldsmith MD, PhD 55 [facility] [address] [place] [address] [email or web address] 02/14/2026 11:00 AM EDT Office Visit [facility] [address] [facility], 7th Floor, [address] [place] [address] Saniya Tan MD 55 [facility] [address] [place] [address] DIALLO@[facility] 02/14/2026 11:00 AM EDT Office Visit [facility] [address] [facility], 7th Floor, [address] [place] [address] Roxana Ornelas MD 55 [facility] 3 [place] [address] CHIN@[email or web address] 02/21/2026 10:00 AM EDT Telemedicine - audio only [facility] General & Gastrointestinal Surgery [address] [facility], 4th Floor, [address] [place] [address] Janie Blackmon FNP 55 [facility] [address] [place] [address] [email or web address] documented as of this encounter Results * (ABNORMAL) Phosphorus (10/25/2019 11:52 AM EST) PHOSPHORUS 2.3(L) 2.7 - 4.5 mg/dL [facility] Blood 10/25/2019 11:5 2 AM EST 10/25/2019 12:20 PM EST us Isabel Sequeira [facility] BLOOD BKR ORDERABLE S Final Result Performing Organization Address [facility]/ZIP Co de Phone Number [facility] [address] [place] [phone] * Magnesium (10/25/2019 11:52 AM EST) Pathologist [facility] MAGNESIUM 1.7 1.3 - 2.7 mg/dL [facility] Blood 10/25/2019 11:5 2 AM EST 10/25/2019 12:20 PM EST us Isabel Sequeira [facility] BLOOD BKR ORDERABLE S Final Result Performing Organization Address [facility] Co de Phone Number [facility] [address] [place] [address] * (ABNORMAL) Comprehensive metabolic panel (10/25/2019 11:52 AM EST) SODIUM 137 136 - 145 mmol/L [facility] POTASSIUM 3.3(L) 3.5 - 5.2 mmol/L [facility] CHLORIDE 100 95 - 106 mmol/L [facility] CO2 25 20 - 31 mmol/L [facility] BUN 14 9 - 23 mg/dL [facility] CREATININE 0.60 0.50 - 1.30 mg/dL [facility] GLUCOSE 108(H) 74 - 106 mg/dL [facility] ALBUMIN 3.5 3.5 - 4.8 g/dL [facility] TOTAL PROTEIN 6.7 5.7 - 8.2 g/dL [facility] CALCIUM 9.0 8.7 - 10.4 mg/dL [facility] ALKALINE PHOSPHATASE 55 27 - 129 U/L [facility] TOTAL BILIRUBIN 0.2 0.0 - 1.0 mg/dL [facility] AST 10 6 - 40 U/L [facility] ALT 8(L) 10 - 49 U/L [facility] GLOBULIN 3.2 1.9 - 4.1 g/dL [facility] EGFR 96 >60 mL/min/1.7 3m2 [facility] Comment:If patient is black, multiply result by 1.159. Estimated glomerular filtration rate calculated using the CKD-EPI equation. ANION GAP 12 3 - 17 mmol/L [facility] Blood 10/25/2019 11:5 2 AM EST 10/25/2019 12:20 PM EST us Isabel Sequeira [facility] BLOOD BKR ORDERABLE S Final Result Performing Organization Address City/State/[facility] Co de Phone Number [address] [address] * (ABNORMAL) CBC and differential (10/25/2019 11:52 AM EST) WBC 5.06 4.0 - 11.0 K/uL [facility] RBC 3.21(L) 3.9 - 5.03 M/uL [facility] HGB 9.7(L) 12 - 15.5 g/dL [facility] HCT 27.6(L) 34.9 - 44.5 % [facility] PLT 275 135 - 400 K/uL [facility] MCV 86.0 80 - 100 fL [facility] MCH 30.2 27.0 - 34.0 pg [facility] MCHC 35.1 31.5 - 36.5 g/dL [facility] RDW 16.8(H) 11.9 - 14.8 % [facility] MPV 8.4(L) 9.6 - 12 fl [facility] NRBC 0.00 0 /100 WBCs [facility] DIFF METHOD Auto [facility] NEUTS 75.2 % [facility] LYMPHS 3.8 % [facility] MONOS 16.0 % [facility] EOS 4.0 % [facility] BASOS 0.2 % [facility] Granulocytes, immature (%) 0.8 % [facility] ABSOLUTE NEUTS 3.81 1.8 - 7.5 K/uL [facility] ABSOLUTE LYMPHS 0.19(L) 1 - 4.8 K/uL [facility] ABSOLUTE MONOS 0.81 0.1 - 0.9 K/uL [facility] ABSOLUTE EOS 0.20 0 - 0.4 K/uL [facility] ABSOLUTE BASOS 0.01 0 - 0.2 K/uL [facility] Granulocytes, immature 0.04 0 - 0.1 K/uL [facility] Blood 10/25/2019 11:5 2 AM EST 10/25/2019 12:21 PM EST us Isabel Sequeira [facility] BLOOD BKR ORDERABLE S Final Result Performing Organization Address City/State/[facility] Co de Phone Number [facility] [address] [place] [address] documented in this encounter Visit Diagnoses Diagnosis Rectal cancer- Primary Malignant neoplasm of rectum documented in this encounter Additional Health Concerns Infection Onset Date Last Indicated Resolved Time Influenza 11/01/2019 11/01/2019 11/08/2019 1:23 AM EST documented as of this encounter Care Teams Mechanical Technician Relationship Specialty Start Date End Date Frankie Padron MD [address] [place] [address] Dr UREÑA [address] [place] [address] PCP - General Internal Medicine 07/16/19 Saniya Tan MD [address] [facility] [address] [place] [address] [email or web address] Primary Oncologist Medical Oncology 12/22/20 Domenic Goldsmith MD, PhD [facility] [address] [place] [address] [email or web address] Surgical Oncology 01/11/21 Robert Lomax MD [address] [place] [address] MARCELA@[email or web address] Cardiothoracic Surgery 07/03/22 08/18/23 Mary Sanon MD [address] [place] [address] maria [email or web address] Radiation Oncology 07/03/22 Marcy Garvey RN [address] [place] [address] [email or web address] Primary Infusion Nurse 10/23/23 11/19/23 Davina Peraza RN [email or web address] Associate Infusion Nurse 10/29/23 11/19/23 Davina Peraza RN [address] [place] [address] [email or web address] Primary Infusion Nurse 11/20/23 documented as of this encounter Additional Source Comments The information contained in this document represents components of the legal health record. It is not the complete legal health record.[facility]
--- OUTSIDE RECORDS SUMMARY | 2025-09-16 20:45 | XMS_ITS | Encounter Summary ---
Author Organization [facility] Address [address] [place] [address] Phone Care Team Providers Care Compositor Apprentice Name Role Phone Frankie Padron MD Primary Care Provider Saniya Tan MD Unavailable Domenic Goldsmith MD, PhD Unavailable [phone] Robert Lomax MD Unavailable Mary Sanon MD Unavailable Marcy Garvey RN Unavailable [email or web address] Davina Peraza RN Unavailable [email or web address] Davina Peraza RN Unavailable [email or web address] Encounter Details Date Type Department Care Team (Late st Contact Info) Description 11/03/[address], [facility] - [address], [address] [place] [address] Social History Tobacco Use Types Packs/Day Years [...] Procedure Pass MRI, [facility] - [place] [address] [facility], [address] [place] [address] 08/12/[address], [facility] - [address], [address] [place] [address] 08/12/[address], [facility] - [address] [facility], [address] [place] [address] 08/12/2025 Procedure Pass MRI, [facility] - [address] [facility], [address] [place] [address] 10/14/2025 1:00 PM EST Office Visit [facility] [address] [facility] 9th [place] [address] Bettina Braden MD [address] [place] [address] MARTÍN@[facility] 10/19/2025 3:00 PM EST Infusion [facility] at [address] [address] Hany Leach MD 02/06/2026 10:30 AM EDT Blood Draw [facility] [address] [address] Saniya Tan MD [address] [place] [address] DIALLO@[facility] 02/06/2026 11:[address], [facility] - [address] [facility], [address] [place] [address] Saniya Tan MD [address] [place] [address] DIALLO@[facility] 02/06/2026 12:30 PM EDT Appointment MRI, [facility] - [place] [address] [facility], [address] [place] [address] Saniya Tan MD 55 [facility] 7[address] [place] [address] DIALLO@[facility] 02/07/2026 9:30 AM EDT Appointment MRI, [facility] - [place] [address] [facility], [address] [place] [address] Domenic Goldsmith MD, PhD 55 [facility] [address] [place] [address] JIGAR@[facility] 02/14/2026 11:00 AM EDT Office Visit [facility] 32 [facility], 7th Floor, [address] [place] [address] Saniya Tan MD [address] [place] [address] [address] [place] [address] DIALLO@[facility] 02/14/2026 11:00 AM EDT Office Visit [facility] 32 [facility], 7th Floor, [address] [place] [address] Roxana Ornelas MD 55 [facility] 3 [place] [address] CHIN@[email or web address] 02/21/2026 10:00 AM EDT Telemedicine - audio only [facility] General & Gastrointestinal Surgery 55 [facility], 4th Floor, [address] [place] [address] Janie Blackmon FNP [address] [facility] 460 [place] [phone] [email or web address] g documented as of this encounter Visit Diagnoses Not on filedocumented in this encounter Care Teams Compositor Apprentice Relationship Specialty Start Date End Date Frankie Padron MD [address] [place] [address] [place] [address] PCP - General Internal Medicine 07/16/19 Saniya Tan MD 55 [facility] Y[facility] [address] [place], [place] DIALLO@[email or web address] Primary Oncologist Medical Oncology 12/22/20 Domenic Goldsmith MD, PhD 55 [facility] [address] [place], [place] JIGAR@[email or web address] Surgical Oncology 01/11/21 Robert Loamx MD 55 [facility] [address] [place] [address] MARCELA@[facility] Cardiothoracic Surgery 07/03/22 08/18/23 Mary Sanon MD 55 [facility] 3 [place] [address] maria [email or web address] Radiation Oncology 07/03/22 Marcy Garvey RN 55 [facility] 3 [place] [address] [email or web address] Primary Infusion Nurse 10/23/23 11/19/23 Davina Peraza RN Associate Infusion Nurse 10/29/23 11/19/23 Davina Peraza RN 55 [place] [address] [email or web address] Primary Infusion Nurse 11/20/23 documented as of this encounter Additional Source Comments The information contained in this document represents components of the legal health record. It is not the complete legal health record.[facility]
--- OUTSIDE RECORDS SUMMARY | 2025-09-16 20:45 | XMS_ITS | Encounter Summary ---
Author Organization [facility] Address [address] [facility] [address] [place] [address] Phone Care Team Providers Care Tour Production Supervisor Name Role Phone Frankie Padron MD Primary Care Provider Saniya Tan MD Unavailable Domenic Goldsmith MD, PhD Unavailable [phone] Robert Lomax MD Unavailable Mary Sanon MD Unavailable Marcy Garvey RN Unavailable [email or web address] Davina Peraza RN Unavailable [email or web address] Davina Peraza RN Unavailable [email or web address] Encounter Details Date Type Department Care Team (Late st Contact Info) Description 10/09/2022 Procedure Pass [facility] PERIOPERATIVE DEPT [address] [place] [address] Social History Tobacco Use Types Packs/Day Years [...] 02/15/2025 Procedure Pass MRI, [facility] - [place] [address] [facility], [address] [place] [address] 08/12/[address], [facility] - [place] [address] [facility], [address] [place] [address] 08/12/[address], [facility] - [place] [address] [facility], [address] [place] [address] 08/12/2025 Procedure Pass MRI, [facility] - [place] [address] [facility], [address] [place] [address] 10/14/2025 1:00 PM EST Office Visit [facility] 165 [facility] 9th [place] [address] Bettina Braden MD [address] [place] [address] 4 [place] [address] MARTÍN@[facility] 10/19/2025 3:00 PM EST Infusion [facility] at [address] [address] Hany Leach MD 02/06/2026 10:30 AM EDT Blood Draw [facility] Lab [address] [place] [address] Saniya Tan MD [address] [place] [address] DIALLO@[facility] 02/06/2026 11:[address], [facility] - [place] [address] [facility], [address] [place] [address] Saniya Tan MD [address] [place] [address] [address] [place] [address] [email or web address]@[facility] 02/06/2026 12:30 PM EDT Appointment MRI, [facility] - [place] 52 [facility], [address] [place] [address] Saniya Tan MD 55 [facility] 7E [place] [address] DIALLO@[facility] 02/07/2026 9:30 AM EDT Appointment MRI, [facility] - [place] 52 [facility], [address] [place] [address] Domenic Goldsmith MD, PhD 55 [facility] 7B [place] [address] JIGAR@[email or web address] 02/14/2026 11:00 AM EDT Office Visit [facility] 32 [facility], 7th Floor, [address] [place] [address] Saniya Tan MD [address] [place] [address] [address] [place] [address] DIALLO@[facility] 02/14/2026 11:00 AM EDT Office Visit [facility] 32 [facility], 7th Floor, [address] [place] [address] Roxana Ornelas MD 55 [facility] 3 [place] [address] CHIN@[facility] 02/21/2026 10:00 AM EDT Telemedicine - audio only [facility] General & Gastrointestinal Surgery 55 [facility], 4th Floor, [address] [place] [address] Janie Blackmon FNP [address] [facility] 460 [place] [phone] [email or web address] g documented as of this encounter Visit Diagnoses Not on filedocumented in this encounter Care Teams Tour Production Supervisor Relationship Specialty Start Date End Date Frankie Padron MD [address] [place] [address] [place] [address] PCP - General Internal Medicine 07/16/19 Saniya Tan MD 55 [facility] YA 7[address] [place] [address] [email or web address]@[email or web address] Primary Oncologist Medical Oncology 12/22/20 Domenic Goldsmith MD, PhD [address] [facility] 7B [place] [address] JIGAR@[email or web address] Surgical Oncology 01/11/21 Robert Lomax MD 55 [facility] 7B [place] [address] [email or web address]@[email or web address] Cardiothoracic Surgery 07/03/22 08/18/23 Mary Sanon MD 55 [facility] 3 [place] [address] maria [email or web address] Radiation Oncology 07/03/22 Marcy Garvey RN 55 [facility] 3 [place] [address] [email or web address] Primary Infusion Nurse 10/23/23 11/19/23 Davina Peraza RN Associate Infusion Nurse 10/29/23 11/19/23 Davina Peraza RN 55 [place] [address] [email or web address] Primary Infusion Nurse 11/20/23 documented as of this encounter Additional Source Comments The information contained in this document represents components of the legal health record. It is not the complete legal health record.[facility]
--- OUTSIDE RECORDS SUMMARY | 2025-09-16 20:45 | XMS_ITS | Encounter Summary ---
Author Organization [facility] Address [address] [facility] [address] [place] [address] Phone Care Team Providers Care Police Guard Name Role Phone Frankie Padron MD Primary Care Provider Saniya Tan MD Unavailable Domenic Goldsmith MD, PhD Unavailable [phone] Robert Lomax MD Unavailable Mary Sanon MD Unavailable Marcy Garvey RN Unavailable [email or web address] Davina Peraza RN Unavailable [email or web address] Davina Peraza RN Unavailable [email or web address] Encounter Details Date Type Department Care Team (Late st Contact Info) Description 01/26/2021 Procedure Pass [facility] PERIOPERATIVE DEPT [address] [place] [address] Social History Tobacco Use Types Packs/Day Years [...] Info) Description 02/15/2025 Procedure Pass MRI, [facility] General Imaging - [place] [address] [facility], [address] [place] [address] 08/12/[address], [facility] General Imaging - [place] [address] [facility], [address] [place] [address] 08/12/[address], [facility] General Imaging - [place] [address] [facility], [address] [place] [address] 08/12/2025 Procedure Pass MRI, [facility] General Imaging - [place] [address] [facility], [address] [place] [address] 10/14/2025 1:00 PM EST Office Visit [facility] [address] [facility] 9th [place] [address] Bettina Braden MD [address] [place] [address] 4 [place] [address] MARTÍN@[facility] 10/19/2025 3:00 PM EST Infusion [facility] at [address] [address] Hany Leach MD 02/06/2026 10:30 AM EDT Blood Draw [facility] Lab [address] [place] [address] Saniya Tan MD [address] [place] [address] DIALLO@[facility] 02/06/2026 11:[address], [facility] General [facility] - [place] [address] [facility], [address] [place] [address] Saniya Tan MD [address] [place] [address] [address] [place] [address] DIALLO@[facility] 02/06/2026 12:30 PM EDT Appointment MRI, [facility] General Imaging - [place] 52 [facility], [address] [place] [address] Saniya Tan MD [address] [facility] 7E [place] [address] DIALLO@[facility] 02/07/2026 9:30 AM EDT Appointment MRI, [facility] [place] 52 [facility], [address] [place] [address] Domenic Goldsmith MD, PhD 55 [facility] 7B [place] [address] JIGAR@[facility] 02/14/2026 11:00 AM EDT Office Visit [facility] [address] [facility], 7th Floor, [address] [place] [address] Saniya Tan MD [address] [place] [address] [address] [place] [address] DIALLO@[facility] 02/14/2026 11:00 AM EDT Office Visit [facility] [address] [facility], 7th Floor, [address] [place] [address] Roxana Ornelas MD 55 [facility] MAY 3 [place] [address] CHIN@[facility] 02/21/2026 10:00 AM EDT Telemedicine - audio only [facility] General & Gastrointestinal Surgery 55 [facility], 4th Floor, [address] [place] [address] Janie Blackmon FNP 55 [facility] 460 [place] [phone] [email or web address] g documented as of this encounter Visit Diagnoses Not on filedocumented in this encounter Care Teams Police Guard Relationship Specialty Start Date End Date Frankie Padron MD [address] [place] [address] [place] [address] PCP - General Internal Medicine 07/16/19 Saniya Tan MD 55 [facility] YA [address] [place] [address] [email or web address]@[email or web address] Primary Oncologist Medical Oncology 12/22/20 Domenic Goldsmith MD, PhD [address] [facility] [address] [place] [address] JIGAR@[email or web address] Surgical Oncology 01/11/21 Robert Lomax MD 55 [facility] 7B [place] [address] MARCELA@[email or web address] Cardiothoracic Surgery 07/03/22 08/18/23 Mary Sanon MD 55 [facility] 3 [place] [address] maria [email or web address] Radiation Oncology 07/03/22 Marcy Garvey RN 55 [facility] 3 [place] [address] [email or web address] Primary Infusion Nurse 10/23/23 11/19/23 Davina Peraza RN Associate Infusion Nurse 10/29/23 11/19/23 Davina Peraza RN 55 [place] [address] [email or web address] Primary Infusion Nurse 11/20/23 documented as of this encounter Additional Source Comments The information contained in this document represents components of the legal health record. It is not the complete legal health record.[facility]
--- OUTSIDE RECORDS SUMMARY | 2025-09-16 20:45 | XMS_ITS | Encounter Summary ---
Author Organization [facility] Address [address] [facility] [address] [place] [address] Phone Care Team Providers Care Office Spec Name Role Phone Frankie Padron MD Primary Care Provider Saniya Tan MD Unavailable Domenic Goldsmith MD, PhD Unavailable [phone] Robert Lomax MD Unavailable [phone] Mary Sanon MD Unavailable [phone] Marcy Garvey RN Unavailable [email or web address] Davina Peraza RN Unavailable [email or web address] Davina Peraza RN Unavailable [email or web address] Encounter Details Date Type Department Care Team (Late st Contact Info) Description 06/07/2022 Procedure Pass [facility] [address] [place] [address] Social History Tobacco Use Types Packs/Day Years [...] MRI, [facility] - [place] [address] [facility], [address] [place] [address] 08/12/[address], [facility] [place] [address] [facility], [address] [place] [address] 08/12/[address], [facility] - [place] [address] [facility], [address] [place] [address] 08/12/2025 Procedure Pass MRI, [facility] - [place] [address] [facility], [address] [place] [address] 10/14/2025 1:00 PM EST Office Visit [facility] [address] [facility] 9th [place] [address] Bettina Braden MD [address] [place] [address] MARTÍN@[email or web address] 10/19/2025 3:00 PM EST Infusion [facility] at [address] [address] Hany Leach MD 02/06/2026 10:30 AM EDT Blood Draw [facility] Lab [address] [place] [address] Saniya Tan MD [address] [place] [address] DIALLO@[email or web address] 02/06/2026 11:[address], [facility] [place] 52 [facility], [address] [place] [address] Saniya Tan MD [address] [place] [address] DIALLO@[email or web address] 02/06/2026 12:30 PM EDT Appointment MRI, [facility] - [place] 52 [facility], [address] [place] [address] Saniya Tan MD [address] 7[address] [place] [address] DIALLO@[email or web address] 02/07/2026 9:30 AM EDT Appointment MRI, [facility] - [address], [address] [place] [address] Domenic Goldsmith MD, PhD 55 [facility] 7[address] [place] [address] JIGAR@[email or web address] 02/14/2026 11:00 AM EDT Office Visit [facility] 32 [facility], 7th Floor, [address] [place] [address] Saniya Tan MD [address] [place] [address] [address] [place] [address] DIALLO@[email or web address] 02/14/2026 11:00 AM EDT Office Visit [facility] 32 [facility], 7th Floor, [address] [place] [address] Roxana Ornelas MD 55 [facility] MAY 3 [place] [address] CHIN@[email or web address] 02/21/2026 10:00 AM EDT Telemedicine - audio only [facility] General & Gastrointestinal Surgery 55 [facility], 4th Floor, [address] [place] [address] Janie Blackmon FNP 55 [facility] 460 [place] [phone] [email or web address] g documented as of this encounter Visit Diagnoses Not on filedocumented in this encounter Care Teams Office Spec Relationship Specialty Start Date End Date Frankie Padron MD [address] [place] [address] [place] [address] PCP - General Internal Medicine 07/16/19 Saniya Tan MD [address] [place], [place] [email or web address]@[email or web address] Primary Oncologist Medical Oncology 12/22/20 Domenic Goldsmith MD, PhD [address] [place] [address] JIGAR@[email or web address] Surgical Oncology 01/11/21 Robert Lomax MD [address] [facility] [address] [facility] [address] [place] [address] MARCELA@[email or web address] Cardiothoracic Surgery 07/03/22 08/18/23 Mary Sanon MD 55 [facility] 3 [place] [address] maria [email or web address] Radiation Oncology 07/03/22 Marcy Garvey RN 55 [facility] 3 [place] [address] [email or web address] Primary Infusion Nurse 10/23/23 11/19/23 Davina Peraza RN Associate Infusion Nurse 10/29/23 11/19/23 Davina Peraza RN 55 [place] [address] [email or web address] Primary Infusion Nurse 11/20/23 documented as of this encounter Additional Source Comments The information contained in this document represents components of the legal health record. It is not the complete legal health record.[facility]
--- OUTSIDE RECORDS SUMMARY | 2025-09-16 20:45 | XMS_ITS | Encounter Summary ---
Author Organization [facility] Address [address] [place] [address] Phone Care Team Providers Care Cylinder Head Assembler Name Role Phone Frankie Padron MD Primary Care Provider Saniya Tan MD Unavailable Domenic Goldsmith MD, PhD Unavailable [phone] Mary Sanon MD Unavailable Davina Peraza RN Unavailable [email or web address] Encounter Details Date Type Department Care Team (Late st Contact Info) Description 11/18/2024 Transcribe Orders [facility] Lab Main [address] [place] [address] Ryan King MD [address] [place] [address] [email or web address] Social History Tobacco Use Types Packs/Day [...] Contact Info) Description 02/15/2025 Procedure Pass MRI, [facility] General Imaging - [address], [address] [place] [address] 08/12/[address], [facility] General Imaging - [address], [address] [place] [address] 08/12/[address], [facility] General Imaging - [place] [address] [facility], [address] [place] [address] 08/12/2025 Procedure Pass MRI, [facility] - [address], [address] [place] [address] 10/14/2025 1:00 PM EST Office Visit [facility] [address] [facility] 9[place], [place] [address] Bettina Braden MD [address] [place] [address] MARTÍN@[facility] 10/19/2025 3:00 PM EST Infusion [facility] at [address] [address] Hany Leach MD 02/06/2026 10:30 AM EDT Blood Draw [facility] Lab [address] [address] Saniya Tan MD [address] [address] DIALLO@[email or web address] 02/06/2026 11:[address], [facility] - [address], [address] [place] [address] Saniya Tan MD [address] [place] [address] DIALLO@[facility] 02/06/2026 12:30 PM EDT Appointment MRI, [facility] - [address], [address] [place] [address] Saniya Tan MD [address] [place] [address] DIALLO@[facility] 02/07/2026 9:30 AM EDT Appointment MRI, [facility] - [address], [address] [place] [address] Domenic Goldsmith MD, PhD [address] [address] JIGAR@[facility] 02/14/2026 11:00 AM EDT Office Visit [facility] 32 [facility], 7th Floor, [address] [place] [address] Saniya Tan MD 55 [facility] 7E [place] [address] DIALLO@[facility] 02/14/2026 11:00 AM EDT Office Visit [facility] 32 [facility], 7th Floor, [address] [place] [address] Roxana Ornelas MD 55 [facility] 3 [place] [address] CHIN@[email or web address] 02/21/2026 10:00 AM EDT Telemedicine - audio only [facility] General & Gastrointestinal Surgery 55 [facility], 4th Floor, [address] [place] [address] Janie Blackmon FNP 55 [facility] 460 [place] [phone] [email or web address] g documented as of this encounter Visit Diagnoses Not on filedocumented in this encounter Care Teams Cylinder Head Assembler Relationship Specialty Start Date End Date Frankie Padron MD [address] [place] [address] [place] [address] PCP - General Internal Medicine 07/16/19 Saniya Tan MD [address] [place] [address] [address] [place] [address] DIALLO@[email or web address] Primary Oncologist Medical Oncology 12/22/20 Domenic Goldsmith MD, PhD [address] [place] [address] 7[address] [place] [address] [email or web address] Surgical Oncology 01/11/21 Mary Sanon MD [address] [place] [address] 3 [place] [address] maria [email or web address] Radiation Oncology 07/03/22 Davina Peraza, RACHEL 55 [place] [address] [email or web address] Primary Infusion Nurse 11/20/23 documented as of this encounter Additional Source Comments The information contained in this document represents components of the legal health record. It is not the complete legal health record.[facility]
--- OUTSIDE RECORDS SUMMARY | 2025-09-16 20:45 | XMS_ITS | Encounter Summary ---
Author Organization [facility] Address [address] [place] [address] Phone Care Team Providers Care Wool Dyer Name Role Phone Frankie Padron MD Primary Care Provider Saniya Tan MD Unavailable Domenic Goldsmith MD, PhD Unavailable [phone] Robert Lomax MD Unavailable [phone] Mary Sanon MD Unavailable Marcy Garvey RN Unavailable [email or web address] Davina Peraza RN Unavailable [email or web address] Davina Peraza RN Unavailable [email or web address] Encounter Details Date Type Department Care Team (Late st Contact Info) Description 08/13/[address], [facility] Imaging - [address], [address] [place] [address] Social History Tobacco Use Types Packs/Day Years [...] Info) Description 02/15/2025 Procedure Pass MRI, [facility] - [place] [address] [facility], [address] [place] [address] 08/12/[address], [facility] - [address], [address] [place] [address] 08/12/[address], [facility] General Imaging - [address] [facility], [address] [place] [address] 08/12/2025 Procedure Pass MRI, [facility] General Imaging - [address] [facility], [address] [place] [address] 10/14/2025 1:00 PM EST Office Visit [facility] 165 [facility] 9th [place] [address] Bettina Braden MD [address] [place] [address] [email or web address] 10/19/2025 3:[address] [facility] at [address] [address] Hany Leach MD 02/06/2026 10:30 AM EDT Blood Draw [facility] [address] [address] Saniya Tan MD [address] [place] [address] [email or web address] 02/06/2026 11:[address], [facility] - [address] [facility], [address] [place] [address] Saniya Tan MD [address] [place] [address] [email or web address]@[email or web address] 02/06/2026 12:30 PM EDT Appointment MRI, [facility] - [place] [address] [facility], [address] [place] [address] Saniya Tan MD 55 [facility] 7[address] [place] [address] [email or web address] 02/07/2026 9:30 AM EDT Appointment MRI, [facility] - [place] [address] [facility], [address] [place] [address] Domenic Goldsmith MD, PhD 55 [facility] 7[address] [place] [address] JIGAR@[email or web address] 02/14/2026 11:00 AM EDT Office Visit [facility] 32 [facility], 7th Floor, [address] [place] [address] Saniya Tan MD [address] [place] [address] 7[address] [place] [address] [email or web address] 02/14/2026 11:00 AM EDT Office Visit [facility] 32 [facility], 7th Floor, [address] [place] [address] Roxana Ornelas MD 55 [facility] 3 [place] [address] CHIN@[facility] 02/21/2026 10:00 AM EDT Telemedicine - audio only [facility] & Gastrointestinal Surgery 55 [facility], 4th Floor, [address] [place] [address] Janie Blackmon FNP 55 [facility] 460 [place] [phone] [email or web address] g documented as of this encounter Visit Diagnoses Not on filedocumented in this encounter Care Teams Wool Dyer Relationship Specialty Start Date End Date Frankie Padron MD [address] [place] [address] [place] [address] PCP - General Internal Medicine 07/16/19 Saniya aTn MD 55 [facility] YA [address]E [place], [place] DIALLO@[email or web address] Primary Oncologist Medical Oncology 12/22/20 Domenic Goldsmith MD, PhD 55 [facility] [address] [place], [place] JIGAR@[facility] Surgical Oncology 01/11/21 Robert Lomax MD 55 [facility] [address] [place] [address] [email or web address] Cardiothoracic Surgery 07/03/22 08/18/23 Mary Sanon MD 55 [facility] 3 [place] [address] maria [email or web address] Radiation Oncology 07/03/22 Marcy Garvey RN 55 [facility] 3 [place] [address] [email or web address] Primary Infusion Nurse 10/23/23 11/19/23 Davina Peraza RN Associate Infusion Nurse 10/29/23 11/19/23 Davina Peraza RN 55 [place] [address] [email or web address] Primary Infusion Nurse 11/20/23 documented as of this encounter Additional Source Comments The information contained in this document represents components of the legal health record. It is not the complete legal health record.[facility]
--- OUTSIDE RECORDS SUMMARY | 2025-09-16 20:46 | XMS_ITS | Encounter Summary ---
Author Organization [facility] Address [address] [place] [address] Phone Care Team Providers Care Senior Receptionist Name Role Phone Frankie Padron MD Primary Care Provider Saniya Tan MD Unavailable Domenic Goldsmith MD, PhD Unavailable [phone] Robert Lomax MD Unavailable Mary Sanon MD Unavailable Marcy Garvey RN Unavailable [email or web address] Davina Peraza RN Unavailable [email or web address] Davina Peraza RN Unavailable [email or web address] Encounter Details Date Type Department Care Team (Late st Contact Info) Description 10/25/2020 Procedure Pass [facility], Ct Scan - [address] [address] Social History Tobacco Use Types Packs/Day Years [...] Contact Info) Description 02/15/2025 Procedure Pass MRI, [facility] General Imaging - [place] [address] [facility], [address] [place] [address] 08/12/[address], [facility] General Imaging - [place] [address] [facility], [address] [place] [address] 08/12/[address], [facility] General Imaging - [place] [address] [facility], [address] [place] [address] 08/12/2025 Procedure Pass MRI, [facility] General Imaging - [place] [address] [facility], [address] [place] [address] 10/14/2025 1:00 PM EST Office Visit [facility] [address] [facility] 9th [place] [address] Bettina Braden MD [address] [place] [address] MARTÍN@[facility] 10/19/2025 3:00 PM EST Infusion [facility] Cancer Center at [address] [address] Hany Leach MD 02/06/2026 10:30 AM EDT Blood Draw [facility] Lab [place] [address] [facility] [address] Saniya Tan MD [address] [place] [address] DIALLO@[facility] 02/06/2026 11:[address], [facility] General Imaging - [address] [facility], [address] [place] [address] Saniya Tan MD [address] [place] [address] DIALLO@[facility] 02/06/2026 12:30 PM EDT Appointment MRI, [facility] General Imaging - [place] [address] [facility], [address] [place] [address] Saniya Tan MD 55 [facility] 7E [place] [address] DIALLO@[facility] 02/07/2026 9:30 AM EDT Appointment MRI, [facility] Imaging - [place] [address] [facility], [address] [place] [address] Domenic Goldsmith MD, PhD 55 [facility] [address] [place] [address] JIGAR@[facility] 02/14/2026 11:00 AM EDT Office Visit [facility] 32 [facility], 7th Floor, [address] [place] [address] Saniya Tan MD [address] [place] [address] [address] [place] [address] DIALLO@[facility] 02/14/2026 11:00 AM EDT Office Visit [facility] 32 [facility], 7th Floor, [address] [place] [address] Roxana Ornelas MD 55 [facility] MAY 3 [place] [address] CHIN@[facility] 02/21/2026 10:00 AM EDT Telemedicine - audio only [facility] General & Gastrointestinal Surgery 55 [facility], 4th Floor, [address] [place] [address] Janie Blackmon FNP 55 [facility] 460 [place] [address] [email or web address] g documented as of this encounter Visit Diagnoses Not on filedocumented in this encounter Care Teams Senior Receptionist Relationship Specialty Start Date End Date Frankie Padron MD [address] [place] [address] [place] [address] PCP - General Internal Medicine 07/16/19 Saniya Tan MD [address] [facility] YA [address] [place] DIALLO@[facility] Primary Oncologist Medical Oncology 12/22/20 Domenic Goldsmith MD, PhD [address] [place] [address] JIGAR@[facility] Surgical Oncology 01/11/21 Robert Lomax MD [address] [facility] [address] [place] [address] MARCELA@[facility] Cardiothoracic Surgery 07/03/22 08/18/23 Mary Sanon MD 55 [facility] 3 [place] [address] maria [email or web address] Radiation Oncology 07/03/22 Marcy Garvey RN 55 [facility] 3 [place] [address] [email or web address] Primary Infusion Nurse 10/23/23 11/19/23 Davina Peraza RN Associate Infusion Nurse 10/29/23 11/19/23 Davina Peraza RN 55 [place] [address] [email or web address] Primary Infusion Nurse 11/20/23 documented as of this encounter Additional Source Comments The information contained in this document represents components of the legal health record. It is not the complete legal health record.[facility]
--- OUTSIDE RECORDS SUMMARY | 2025-09-16 20:46 | XMS_ITS | Encounter Summary ---
Author Organization [facility] Address [address] [facility] [address] [place] [address] Phone Care Team Providers Care Head Sawyer Name Role Phone Frankie Padron MD Primary Care Provider Saniya Tan MD Unavailable Domenic Goldsmith MD, PhD Unavailable [phone] Robert Lomax MD Unavailable Mary Sanon MD Unavailable Marcy Garvey RN Unavailable [email or web address] Davina Peraza RN Unavailable [email or web address] Davina Peraza RN Unavailable [email or web address] Encounter Details Date Type Department Care Team (Late st Contact Info) Description 02/12/2021 Procedure Pass [facility] Imaging - RF/IR [address] [place] [address] Social History Tobacco Use Types Packs/Day Years [...] Info) Description 02/15/2025 Procedure Pass MRI, [facility] General Imaging - [place] [address] [facility], [address] [place] [address] 08/12/[address], [facility] General Imaging - [place] [address] [facility], [address] [place] [address] 08/12/[address], [facility] General Imaging - [place] [address] [facility], [address] [place] [address] 08/12/2025 Procedure Pass MRI, [facility] General Imaging - [place] [address] [facility], [address] [place] [address] 10/14/2025 1:00 PM EST Office Visit [facility] [address] [facility] 9th [place] [address] Bettina Braden MD [address] [place] [address] 4 [place] [address] MARTÍN@[facility] 10/19/2025 3:00 PM EST Infusion [facility] Cancer Center at [address] [address] Hany Leach MD 02/06/2026 10:30 AM EDT Blood Draw [facility] Lab [address] [place] [address] Saniya Tan MD [address] [place] [address] DIALLO@[facility] 02/06/2026 11:[address], [facility] General Imaging - [place] [address] [facility], [address] [place] [address] Saniya Tan MD [address] [place] [address] [address] [place] [address] DIALLO@[facility] 02/06/2026 12:30 PM EDT Appointment MRI, [facility] General Imaging - [place] 52 [facility], [address] [place] [address] Saniya Tan MD 55 [facility] 7E [place] [address] DIALLO@[facility] 02/07/2026 9:30 AM EDT Appointment MRI, [facility] Imaging - [place] 52 [facility], [address] [place] [address] Domenic Goldsmith MD, PhD 55 [facility] 7B [place] [address] JIGAR@[facility] 02/14/2026 11:00 AM EDT Office Visit [facility] 32 [facility], 7th Floor, [address] [place] [address] Saniya Tan MD [address] [place] [address] [address] [place] [address] DIALLO@[facility] 02/14/2026 11:00 AM EDT Office Visit [facility] 32 [facility], 7th Floor, [address] [place] [address] Roxana Ornelas MD 55 [facility] MAY 3 [place] [address] CHIN@[facility] 02/21/2026 10:00 AM EDT Telemedicine - audio only [facility] General & Gastrointestinal Surgery 55 [facility], 4th Floor, [address] [place] [address] Janie Blackmon FNP 55 [facility] 460 [place] [phone] [email or web address] g documented as of this encounter Visit Diagnoses Not on filedocumented in this encounter Care Teams Head Sawyer Relationship Specialty Start Date End Date Frankie Padron MD [address] [place] [address] [place] [address] PCP - General Internal Medicine 07/16/19 Saniya Tan MD 55 [facility] YA [address] [place] [address] DIALLO@[facility] Primary Oncologist Medical Oncology 12/22/20 Domenic Goldsmith MD, PhD [address] [facility] 7[address] [place] [address] JIGAR@[facility] Surgical Oncology 01/11/21 Robert Lomax MD 55 [facility] [address] [place] [address] MARCELA@[facility] Cardiothoracic Surgery 07/03/22 08/18/23 Mary Sanon MD 55 [facility] 3 [place] [address] maria [email or web address] Radiation Oncology 07/03/22 Marcy Garvey RN 55 [facility] 3 [place] [address] [email or web address] Primary Infusion Nurse 10/23/23 11/19/23 Davina Peraza RN Associate Infusion Nurse 10/29/23 11/19/23 Davina Peraza RN 55 [place] [address] [email or web address] Primary Infusion Nurse 11/20/23 documented as of this encounter Additional Source Comments The information contained in this document represents components of the legal health record. It is not the complete legal health record.[facility]
--- OUTSIDE RECORDS SUMMARY | 2025-09-16 20:46 | XMS_ITS | Encounter Summary ---
Author Organization [facility] Address [address] [facility] [address] [place] [address] Phone Care Team Providers Care Fur Dresser Name Role Phone Frankie Padron MD Primary Care Provider Saniya Tan MD Unavailable Domenic Goldsmith MD, PhD Unavailable [phone] Robert Lomax MD Unavailable [phone] Mary Sanon MD Unavailable Marcy Garvey RN Unavailable [email or web address] Davina Peraza RN Unavailable [email or web address] Davina Peraza RN Unavailable [email or web address] Encounter Details Date Type Department Care Team (Late st Contact Info) Description 02/12/2021 Procedure Pass [facility] CRP ENDO DEPT [address] [address] Social History Tobacco Use Types Packs/Day Years [...] Contact Info) Description 02/15/2025 Procedure Pass MRI, [facility] General Imaging - Center [address] [facility], [address] [place] [address] 08/12/[address], [facility] General Imaging - [place] [address] [facility], [address] [place] [address] 08/12/[address], [facility] General Imaging - [place] [address] [facility], [address] [place] [address] 08/12/2025 Procedure Pass MRI, [facility] General Imaging - [place] [address] [facility], [address] [place] [address] 10/14/2025 1:00 PM EST Office Visit [facility] [address] [facility] 9th [place] [address] Bettina Braden MD [address] [place] [address] MARTÍN@[facility] 10/19/2025 3:00 PM EST Infusion [facility] at [address] [address] Hany Leach MD 02/06/2026 10:30 AM EDT Blood Draw [facility] Lab Center 52 [facility] [place] [address] Saniya Tan MD [address] [place] [address] DIALLO@[facility] 02/06/2026 11:[address], [facility] General Imaging - [place] 52 [facility], [address] [place] [address] Saniya Tan MD [address] [place] [address] DIALLO@[facility] 02/06/2026 12:30 PM EDT Appointment MRI, [facility] General Imaging - [place] 52 [facility], [address] [place] [address] Saniya aTn MD 55 [facility] 7E [place] [address] DIALLO@[facility] 02/07/2026 9:30 AM EDT Appointment MRI, [facility] Imaging - [address], [address] [place] [address] Domenic Goldsmith MD, PhD 55 [facility] 7B [place] [address] JIGAR@[facility] 02/14/2026 11:00 AM EDT Office Visit [facility] 32 [facility], 7th Floor, [address] [place] [address] Saniya Tan MD [address] [place] [address] 7[address] [place] [address] DIALLO@[facility] 02/14/2026 11:00 AM EDT Office Visit [facility] [address] [facility], 7th Floor, [address] [place] [address] Roxana Ornelas MD 55 [facility] 3 [place] [address] CHIN@[facility] 02/21/2026 10:00 AM EDT Telemedicine - audio only [facility] General & Gastrointestinal Surgery [address] [facility], 4th Floor, [address] [place] [address] Janie Blackmon FNP 55 [facility] 460 [place] [phone] [email or web address] g documented as of this encounter Visit Diagnoses Not on filedocumented in this encounter Care Teams Fur Dresser Relationship Specialty Start Date End Date Frankie Padron MD [address] [place] [address] [place] [address] PCP - General Internal Medicine 07/16/19 Saniya Tan MD [address] [place], [place] DIALLO@[email or web address] Primary Oncologist Medical Oncology 12/22/20 Domenic Goldsmith MD, PhD [address] [place] [address] JIGAR@[facility] Surgical Oncology 01/11/21 Robert Lomax MD [address] [address] [place] [address] MARCELA@[facility] Cardiothoracic Surgery 07/03/22 08/18/23 Mary Sanon MD 55 [facility] 3 [place] [address] maria [email or web address] Radiation Oncology 07/03/22 Marcy Garvey RN 55 [facility] 3 [place] [address] [email or web address] Primary Infusion Nurse 10/23/23 11/19/23 Davina Peraza RN Associate Infusion Nurse 10/29/23 11/19/23 Davina Peraza RN 55 [place] [address] [email or web address] Primary Infusion Nurse 11/20/23 documented as of this encounter Additional Source Comments The information contained in this document represents components of the legal health record. It is not the complete legal health record.[facility]
--- OUTSIDE RECORDS SUMMARY | 2025-09-16 20:46 | XMS_ITS | Encounter Summary ---
Author Organization [facility] Address [address] [facility] [address] [place] [address] Phone Care Team Providers Care Jewelry Technician Name Role Phone Frankie Padron MD Primary Care Provider Saniya Tan MD Unavailable Domenic Goldsmith MD, PhD Unavailable [phone] Robert Lomax MD Unavailable [phone] Mary Sanon MD Unavailable [phone] Marcy Garvey RN Unavailable [email or web address] Davina Peraza RN Unavailable [email or web address] Davina Peraza RN Unavailable [email or web address] Encounter Details Date Type Department Care Team (Late st Contact Info) Description 11/10/2020 Procedure Pass [facility] Imaging - [facility], [facility] 2013 [place] [address] Social History Tobacco Use Types Packs/Day Years [...] [facility] General Imaging - [place] [address] [facility], [address] [place] [address] 08/12/[address], [facility] General Imaging - [place] [address] [facility], [address] [place] [address] 08/12/[address], [facility] General Imaging - [place] [address] [facility], [address] [place] [address] 08/12/2025 Procedure Pass MRI, [facility] General Imaging - [place] [address] [facility], [address] [place] [address] 10/14/2025 1:00 PM EST Office Visit [facility] 165 [facility] 9th [place] [address] Bettina Braden MD [address] [place] [address] MARTÍN@[facility] 10/19/2025 3:00 PM EST Infusion [facility] at [address] [address] Hany Leach MD 02/06/2026 10:30 AM EDT Blood Draw [facility] Lab [place] 52 [facility] [place] [address] Saniya Tan MD [address] [place] [address] DIALLO@[facility] 02/06/2026 11:[address], [facility] General Imaging - [address] [facility], [address] [place] [address] Saniya Tan MD [address] [place] [address] DIALLO@[facility] 02/06/2026 12:30 PM EDT Appointment MRI, [facility] Imaging - [place] 52 [facility], [address] [place] [address] Saniya Tan MD 55 [facility] 7[address] [place] [address] DIALLO@[facility] 02/07/2026 9:30 AM EDT Appointment MRI, [facility] Imaging - [place] 52 [facility], [address] [place] [address] Domenic Goldsmith MD, PhD 55 [facility] 7[address] [place] [address] JIGAR@[facility] 02/14/2026 11:00 AM EDT Office Visit [facility] 32 [facility], 7th Floor, [address] [place] [address] Saniya Tan MD [address] [place] [address] 7[address] [place] [address] DIALLO@[facility] 02/14/2026 11:00 AM EDT Office Visit [facility] 32 [facility], 7th Floor, [address] [place] [address] Roxana Ornelas MD 55 [facility] MAY 3 [place] [address] CHIN@[facility] 02/21/2026 10:00 AM EDT Telemedicine - audio only [facility] General & Gastrointestinal Surgery 55 [facility], 4th Floor, [address] [place] [address] Janie Blackmon FNP 55 [facility] 460 [place] [phone] [email or web address].or g documented as of this encounter Visit Diagnoses Not on filedocumented in this encounter Care Teams Jewelry Technician Relationship Specialty Start Date End Date Frankie Padron MD [address] [place] [address] [place] [address] PCP - General Internal Medicine 07/16/19 Saniya Tan MD 55 [facility] YA 7[address] [place] [address] DIALLO@[facility] Primary Oncologist Medical Oncology 12/22/20 Domenic Goldsmith MD, PhD [address] [place] [address] JIGAR@[facility] Surgical Oncology 01/11/21 Robert Lomax MD [address] [facility] [address] [place] [address] MARCELA@[facility] Cardiothoracic Surgery 07/03/22 08/18/23 Mary Sanon MD 55 [facility] 3 [place] [address] maria c@[email or web address] Radiation Oncology 07/03/22 Marcy Garvey RN 55 [facility] 3 [place] [address] [email or web address] Primary Infusion Nurse 10/23/23 11/19/23 Davina Peraza RN Associate Infusion Nurse 10/29/23 11/19/23 Davina Peraza RN 55 [place] [address] [email or web address] Primary Infusion Nurse 11/20/23 documented as of this encounter Additional Source Comments The information contained in this document represents components of the legal health record. It is not the complete legal health record.[facility]
--- OUTSIDE RECORDS SUMMARY | 2025-09-16 20:47 | XMS_ITS | Encounter Summary ---
Author Organization [facility] Address [address] [place] [address] Phone Care Team Providers Care Client Service And Consulting Manager Name Role Phone Frankie Padron MD Primary Care Provider Saniya Tan MD Unavailable Domenic Goldsmith MD, PhD Unavailable Mary Sanon MD Unavailable [phone] Marcy Garvey RN Unavailable [email or web address] Davina Peraza RN Unavailable [email or web address] Davina Peraza RN Unavailable [email or web address] Encounter Details Date Type Department Care Team (Late st Contact Info) Description 09/17/2023 Procedure Pass [facility] PERIOPERATIVE DEPT 55 [place] [id number] Social History Tobacco Use Types Packs/Day Years [...] Contact Info) Description 02/15/2025 Procedure Pass MRI, [facility] General Imaging - [place] [address], [address] [place] [address] 08/12/[address], [facility] Imaging - [place] [address] [facility], [address] [place] [address] 08/12/[address], [facility] Imaging - [place] [address] [facility], [address] [place] [address] 08/12/2025 Procedure Pass MRI, [facility] Imaging - [place] [address] [facility], [address] [place] [address] 10/14/2025 1:00 PM EST Office Visit [facility] [address] 9th [place] [address] Bettina Braden MD 55 [facility] 4 [place] [address] MARTÍN@[facility] 10/19/2025 3:00 PM EST Infusion [facility] at [address] [address] Unknown, Hany, 02/06/2026 10:30 AM EDT Blood Draw [facility] Lab [place] [address] [place] [address] Saniya Tan MD 55 [facility] 7E [place] [address] DIALLO@[facility] 02/06/2026 11:[address], [facility] General Imaging - [address], [address] [place] [address] Saniya Tan MD 55 [facility] 7E [place] [address] DIALLO@[facility] 02/06/2026 12:30 PM EDT Appointment MRI, [facility] General Imaging - [address], [address] [place] [address] Saniya Tan MD 55 [facility] [address]E [place] [address] DIALLO@[facility] 02/07/2026 9:30 AM EDT Appointment MRI, [facility] General Imaging - [address], [address] [place] [address] Domenic Goldsmith MD, PhD 55 [facility] [address]B [place] [address] [email or web address] 02/14/2026 11:00 AM EDT Office [facility] 32 [facility], 7th Floor, [address] [place] [address] Saniya Tan MD [address] [place] [address] 7[address] [place] [address] DIALLO@[facility] 02/14/2026 11:00 AM EDT Office [facility] 32 [facility], 7th Floor, [address] [place] [address] Roxana Ornelas MD 55 [facility] 3 [place] [address] CHIN@[email or web address] 02/21/2026 10:00 AM EDT Telemedicine - audio only [facility] General & Gastrointestinal Surgery [address], 4th Floor, [address] [place] [address] Janie Blackmon, LINE OPERATOR 55 [facility] [place] [address] [place] [phone] [email or web address] g documented as of this encounter Visit Diagnoses Not on filedocumented in this encounter Care Teams Client Service And Consulting Manager Relationship Specialty Start Date End Date Frankie Padron MD [address] [place] [address] [place] [address] PCP - General Internal Medicine 07/16/19 Saniya Tan MD 55 [facility] [address]E [place], [place] DIALLO@[email or web address] du Primary Oncologist Medical Oncology 12/22/20 Domenic Goldsmith MD, PhD 55 [facility] [address] [place], [place] [email or web address] u Surgical Oncology 01/11/21 Mary Sanon MD 55 [facility] 3 [place] [address] maria [email or web address].[place]. [facility] Radiation Oncology 07/03/22 Marcy Garvey RN 55 [facility] 3 [place] [address] [email or web address]. [email or web address] [email or web address] Primary Infusion Nurse 10/23/23 11/19/23 Davina Peraza RN Associate Infusion Nurse 10/29/2311/03 Davina Peraza, RACHEL 55 [place] [address] [email or web address] Primary Infusion Nurse 11/20/23 documented as of this encounter Additional Source Comments The information contained in this document represents components of the legal health record. It is not the complete legal health record.[facility]
--- OUTSIDE RECORDS SUMMARY | 2025-09-16 20:47 | XMS_ITS | Encounter Summary ---
Author Organization [facility] Address [address] [place] [address] Phone Care Team Providers Care Dowel Setting Machine Operator Name Role Phone Frankie Padron MD Primary Care Provider Saniya Tan MD Unavailable Domenic Goldsmith MD, PhD Unavailable [phone] Robert Lomax MD Unavailable Mary Sanon MD Unavailable Marcy Garvey RN Unavailable [email or web address] Davina Peraza RN Unavailable [email or web address] Davina Peraza RN Unavailable [email or web address] Encounter Details Date Type Department Care Team (Late st Contact Info) Description 06/16/[address], [facility] Imaging - [address], [address] [place] [address] Social History Tobacco Use Types Packs/Day Years [...] Contact Info) Description 02/15/2025 Procedure Pass MRI, [facility] Imaging - [address], [address] [place] [address] 08/12/[address], [facility] Imaging - [address] [facility], [address] [place] [address] 08/12/[address], [facility] Imaging - [address], [address] [place] [address] 08/12/2025 Procedure Pass MRI, [facility] Imaging - [address] [facility], [address] [place] [address] 10/14/2025 1:00 PM EST Office Visit [facility] [address] 9th [place] [address] Bettina Braden MD 55 [facility] 4 [place] [address] MARTÍN@[facility] 10/19/2025 3:00 PM EST Infusion [facility] Center at [place] [address] [place] [address] Hany Leach MD 02/06/2026 10:30 AM EDT Blood Draw [facility] Lab [place] [address] [facility] [place] [address] Saniya Tan MD 55 [facility] YA [address]E [place] [address] DIALLO@[facility] 02/06/2026 11:[address], [facility] Imaging - [address], [address] [place] [address] Saniya Tan MD 55 [facility] 7E [place] [address] DIALLO@[facility] 02/06/2026 12:30 PM EDT Appointment MRI, [facility] Imaging - [address], [address] [place] [address] Saniya Tan MD 55 [facility] 7E [place] [address] DIALLO@[facility] 02/07/2026 9:30 AM EDT Appointment MRI, [facility] - [address], [address] [place] [address] Domenic Goldsmith MD, PhD 55 [facility] 7B [place] [address] MQJUNIOR@[facility] 02/14/2026 11:00 AM EDT Office Visit [facility] 32 [facility], 7th Floor, [address] [place] [address] Saniya Tan MD 55 [facility] 7E [place] [address] DIALLO@[facility] 02/14/2026 11:00 AM EDT Office Visit [facility] 32 [facility], 7th Floor, [address] [place] [address] Roxana Ornelas MD 55 [facility] 3 [place] [address] CHIN@[facility] 02/21/2026 10:00 AM EDT Telemedicine - audio only [facility] General & Gastrointestinal Surgery 55 [facility], 4th Floor, [address] [place] [address] Janie Blackmon FNP 55 [facility] 460 [place] [phone] [email or web address] g documented as of this encounter Visit Diagnoses Not on filedocumented in this encounter Care Teams Dowel Setting Machine Operator Relationship Specialty Start Date End Date Frankie Padron MD [address] [place] [address] [place] [address] PCP - General Internal Medicine 07/16/19 Saniya Tan MD 55 [facility] 7E [place] [address] DIALLO@[email or web address] Primary Oncologist Medical Oncology 12/22/20 Domenic Goldsmith MD, PhD 55 [facility] 7B [place] [address] JIGAR@[facility] Surgical Oncology 01/11/21 Robert Lomax MD 55 [facility] 7B [place] [address] MARCELA@[facility] Cardiothoracic Surgery 07/03/22 08/18/23 Mary Sanon MD 55 [facility] 3 [place] [address] maria [email or web address] Radiation Oncology 07/03/22 Marcy Garvey RN 55 [facility] MAY 3 [place] [address] [email or web address] Primary Infusion Nurse 10/23/23 11/19/23 Davina Peraza RN Associate Infusion Nurse 10/29/23 11/19/23 Davina Peraza, RACHEL [address] [place] [address] [email or web address] Primary Infusion Nurse 11/20/23 documented as of this encounter Additional Source Comments The information contained in this document represents components of the legal health record. It is not the complete legal health record.[facility]
--- OUTSIDE RECORDS SUMMARY | 2025-09-16 20:47 | XMS_ITS | Encounter Summary ---
Author Organization [facility] Address [address] [employer] [facility] [address] [place] [address] Phone Care Team Providers Care Retail Sales Director Name Role Phone Frankie Padron MD Primary Care Provider Saniya Tan MD Unavailable Domenic Goldsmith MD, PhD Unavailable [phone] Robert Lomax MD Unavailable [phone] Mary Sanon MD Unavailable Marcy Garvey RN Unavailable [email or web address] [place] [email or web address] Davina Peraza RN Unavailable [email or web address] Davina Peraza RN Unavailable [email or web address] Encounter Details Date Type Department Care Team (Late st Contact Info) Description 07/10/2022 Procedure Pass [facility], [address] [address] Social History Tobacco Use Types Packs/Day Years [...] [facility] General Imaging - [place] [address] [facility], [address] [place] [address] 08/12/[address], [facility] General Imaging - [address] [facility], [address] [place] [address] 08/12/[address], [facility] General Imaging - [place] [address] [facility], [address] [place] [address] 08/12/2025 Procedure Pass MRI, [facility] General Imaging - [address] [facility], [address] [place] [address] 10/14/2025 1:00 PM EST Office Visit [facility] 165 [facility] 9th [place] [address] Bettina Braden MD [address] [place] [address] MARTÍN@[facility] 10/19/2025 3:00 PM EST Infusion [facility] Cancer Center at [address] [address] Hany Leach MD 02/06/2026 10:30 AM EDT Blood Draw [facility] Lab [address] [address] Saniya Tan MD [address] [place] [address] DIALLO@[email or web address] 02/06/2026 11:[address], [facility] General Imaging - [address] [facility], [address] [place] [address] Saniya Tan MD [address] [place] [address] DIALLO@[email or web address] 02/06/2026 12:30 PM EDT Appointment MRI, [facility] Imaging - [place] 52 [facility], [address] [place] [address] Saniya Tan MD 55 [facility] 7E [place] [address] DIALLO@[email or web address] 02/07/2026 9:30 AM EDT Appointment MRI, [facility] Imaging - [address], [address] [place] [address] Domenic Goldsmith MD, PhD 55 [facility] 7B [place] [address] JIGAR@[facility] 02/14/2026 11:00 AM EDT Office Visit [facility] 32 [facility], 7th Floor, [address] [place] [address] Saniya Tan MD [address] [place] [address] 7[address] [place] [address] DIALLO@[facility] 02/14/2026 11:00 AM EDT Office Visit [facility] 32 [facility], 7th Floor, [address] [place] [address] Roxana Ornelas MD [address] [place] [address] MAY 3 [place] [address] CHIN@[email or web address] 02/21/2026 10:00 AM EDT Telemedicine - audio only [facility] General & Gastrointestinal Surgery 55 [facility], 4th Floor, [address] [place] [address] Janie Blackmon FNP 55 [facility] 460 [place] [phone] [email or web address] g documented as of this encounter Visit Diagnoses Not on filedocumented in this encounter Care Teams Retail Sales Director Relationship Specialty Start Date End Date Frankie Padron MD [address] [place] [address] [place] [address] PCP - General Internal Medicine 07/16/19 Saniya Tan MD 55 [facility] YA [address]E [place], [place] DIALLO@[email or web address] Primary Oncologist Medical Oncology 12/22/20 Domenic Goldsmith MD, PhD [address] [facility] [address] [place], [place] JIGAR@[email or web address] Surgical Oncology 01/11/21 Robert Lomax MD [address] [facility] 7B [place] [address] MARCELA@[email or web address] Cardiothoracic Surgery 07/03/22 08/18/23 Mary Sanon MD 55 [facility] 3 [place] [address] maria [email or web address] Radiation Oncology 07/03/22 Marcy Garvey RN 55 [facility] 3 [place] [address] [email or web address] Primary Infusion Nurse 10/23/23 11/19/23 Davina Peraza RN Associate Infusion Nurse 10/29/23 11/19/23 Davina Peraza RN 55 [place] [address] [email or web address] Primary Infusion Nurse 11/20/23 documented as of this encounter Additional Source Comments The information contained in this document represents components of the legal health record. It is not the complete legal health record.[facility]
--- OUTSIDE RECORDS SUMMARY | 2025-09-16 20:47 | XMS_ITS | Encounter Summary ---
Author Organization [facility] Address [address] [place] [address] Phone Care Team Providers Care Print Binding And Finishing Worker Name Role Phone Frankie Padron MD Primary Care Provider Saniya Tan MD Unavailable Domenic Goldsmith MD, PhD Unavailable [phone] Robert Lomax MD Unavailable [phone] Mary Sanon MD Unavailable [phone] Marcy Garvey RN Unavailable [email or web address] Davina Peraza RN Unavailable [email or web address] Davina Peraza RN Unavailable [email or web address] Encounter Details Date Type Department Care Team (Late st Contact Info) Description 06/16/[address], [facility] Imaging - [address], [address] [place] [address] Social History Tobacco Use Types Packs/Day Years [...] Contact Info) Description 02/15/2025 Procedure Pass MRI, [facility] Imaging - [address], [address] [place] [address] 08/12/[address], [facility] Imaging - [address] [facility], [address] [place] [address] 08/12/[address], [facility] Imaging - [address], [address] [place] [address] 08/12/2025 Procedure Pass MRI, [facility] Imaging - [address] [facility], [address] [place] [address] 10/14/2025 1:00 PM EST Office [facility] [address] 9th [place] [address] Bettina Braden MD 55 [facility] 4 [place] [address] MARTÍN@[facility] 10/19/2025 3:00 PM EST Infusion [facility] at [place] [address] [place] [address] Hany Leach MD 02/06/2026 10:30 AM EDT Blood Draw [facility] [place] [address] [facility] [place] [address] Saniya Tan MD 55 [facility] YA 7E [place] [address] DIALLO@[facility] 02/06/2026 11:[address], [facility] Imaging - [address] [place] [address] Saniya Tan MD 55 [facility] 7E [place] [address] DIALLO@[facility] 02/06/2026 12:30 PM EDT Appointment MRI, [facility] Imaging - [address], [address] [place] [address] Saniya Tan MD 55 [facility] 7[address] [place] [address] DIALLO@[facility] 02/07/2026 9:30 AM EDT Appointment MRI, [facility] - [address], [address] [place] [address] Domenic Goldsmith MD, PhD 55 [facility] 7B [place] [address] MQJUNIOR@[email or web address] 02/14/2026 11:00 AM EDT [facility] 32 [facility], 7th Floor, [address] [place] [address] Saniya Tan MD 55 [facility] 7[address] [place] [address] DIALLO@[facility] 02/14/2026 11:00 AM EDT Office [facility] 32 [facility], 7th Floor, [address] [place] [address] Roxana Ornelas MD 55 [facility] 3 [place] [address] CHIN@[facility] 02/21/2026 10:00 AM EDT Telemedicine - audio only [facility] General & Gastrointestinal Surgery 55 [facility], 4th Floor, [address] [place] [address] Janie Blackmon FNP 55 [facility] 460 [place] [phone] [email or web address] g documented as of this encounter Visit Diagnoses Not on filedocumented in this encounter Care Teams Print Binding And Finishing Worker Relationship Specialty Start Date End Date Frankie Padron MD [address] [place] [address] [place] [address] PCP - General Internal Medicine 07/16/19 Saniya Tan MD 55 [facility] 7E [place] [address] DIALLO@[email or web address] Primary Oncologist Medical Oncology 12/22/20 Domenic Goldsmith MD, PhD 55 [facility] 7B [place] [address] JIGAR@[facility] Surgical Oncology 01/11/21 Robert Lomax MD 55 [facility] 7B [place] [address] MARCELA@[facility] Cardiothoracic Surgery 07/03/22 08/18/23 Mary Sanon MD 55 [facility] 3 [place] [address] maria [email or web address] Radiation Oncology 07/03/22 Marcy Garvey RN 55 [facility] MAY 3 [place] [address] [email or web address] Primary Infusion Nurse 10/23/23 11/19/23 Davina Peraza RN Associate Infusion Nurse 10/29/23 11/19/23 Davina Peraza, RACHEL [address] [place] [address] [email or web address] Primary Infusion Nurse 11/20/23 documented as of this encounter Additional Source Comments The information contained in this document represents components of the legal health record. It is not the complete legal health record.[facility]
--- OUTSIDE RECORDS SUMMARY | 2025-09-16 20:47 | XMS_ITS | Encounter Summary ---
Author Organization [facility] Address [address] [place] [address] Phone Care Team Providers Care Backfiller Name Role Phone Frankie Padron MD Primary Care Provider Saniya Tan MD Unavailable Domenic Goldsmith MD, PhD Unavailable [phone] Mary Sanon MD Unavailable [phone] Marcy Garvey RN Unavailable [email or web address] Davina Peraza RN Unavailable [email or web address] Davina Peraza RN Unavailable [email or web address] Encounter Details Date Type Department Care Team (Late st Contact Info) Description 10/21/2023 Procedure Pass Interventional Radiology, [facility] - [address], [address] [place] [id number] Social History Tobacco Use Types Packs/Day Years [...] Contact Info) Description 02/15/2025 Procedure Pass MRI, [facility] General Imaging - [place] [address] [facility], [address] [place] [address] 08/12/[address], [facility] - [place] [facility], [address] [place] [address] 08/12/[address], [facility] Imaging - [address] [facility], [address] [place] [address] 08/12/2025 Procedure Pass MRI, [facility] Imaging - [address] [facility], [address] [place] [address] 10/14/2025 1:00 PM EST Office Visit [facility] [address] 9th [place] [address] Bettina Braden MD [address] [place] [address] 4 [place] [address] MARTÍN@[facility] 10/19/2025 3:00 PM EST Infusion [facility] at [address] [address] Unknown, MD Hany 02/06/2026 10:30 AM EDT Blood Draw [facility] Lab [address] [place] [address] Saniya Tan MD 55 [facility] 7E [place] [address] DIALLO@[facility] 02/06/2026 11:[address], [facility] General Imaging - [address], [address] [place] [address] Saniya Tan MD 55 [facility] [address]E [place] [address] DIALLO@[facility] 02/06/2026 12:30 PM EDT Appointment MRI, [facility] - [address], [address] [place] [address] Saniya Tan MD [address] [address] DIALLO@[facility] 02/07/2026 9:30 AM EDT Appointment MRI, [facility] - [address], [address] [place] [address] Domenic Goldsmith MD, PhD 55 [facility] [address] [place] [address] MQADAN@[facility] 02/14/2026 11:00 AM EDT Office Visit [facility] [address] [facility], 7th Floor, [address] [place] [address] Saniya Tan MD [address] [place] [address] [address] [place] [address] DIALLO@[facility] 02/14/2026 11:00 AM EDT Office Visit [facility] [address] [facility], 7th Floor, [address] [place] [address] Roxana Ornelas MD 55 [facility] 3 [place] [address] CHIN@[email or web address] 02/21/2026 10:00 AM EDT Telemedicine - audio only [facility] General & Gastrointestinal Surgery 55 [facility], 4th Floor, [address] [place] [address] Janie Blackmon, BILLIARD PARLOR MANAGER 55 [facility] 460 [place] [phone] [email or web address] g documented as of this encounter Visit Diagnoses Not on filedocumented in this encounter Care Teams Backfiller Relationship Specialty Start Date End Date Frankie Padron MD [address] [place] [address] [place] [address] PCP - General Internal Medicine 07/16/19 Saniya Tan MD [address] [place] [address] [address] [place] [address] DIALLO@[email or web address] jose angel Primary Oncologist Medical Oncology 12/22/20 Domenic Goldsmith MD, PhD [address] [place] [address] 7[address] [place] [address] JIGAR@[email or web address] u Surgical Oncology 01/11/21 Mary Sanon MD [address] [place] [address] 3 [place] [address] maria [email or web address]. [facility] Radiation Oncology 07/03/22 Marcy Garvey RN 55 [facility] 3 [place] [address] [email or web address] Primary Infusion Nurse 10/23/23 11/19/23 Davina Peraza RN Associate Infusion Nurse 10/29/2311/03 Davina Peraza RN 55 [place] [address] [email or web address] Primary Infusion Nurse 11/20/23 documented as of this encounter Additional Source Comments The information contained in this document represents components of the legal health record. It is not the complete legal health record.[facility]
--- OUTSIDE RECORDS SUMMARY | 2025-09-16 20:47 | XMS_ITS | Encounter Summary ---
Author Organization [facility] Address [address] [facility] [place] [address] Phone Care Team Providers Care Public Interviewer Name Role Phone Frankie Padron MD Primary Care Provider Saniya Tan MD Unavailable Domenic Goldsmith MD, PhD Unavailable [phone] Mary Sanon MD Unavailable [phone] Marcy Garvey RN Unavailable [email or web address] Davina Peraza RN Unavailable [email or web address] Davina Peraza RN Unavailable [email or web address] Encounter Details Date Type Department Care Team (Late st Contact Info) Description 10/14/2023 Procedure Pass Interventional Radiology, [facility] - [address], [address] [place] [id number] Social History Tobacco Use Types Packs/Day Years [...] Contact Info) Description 02/15/2025 Procedure Pass MRI, [facility] General Imaging - [place] [address] [facility], [address] [place] [address] 08/12/[address], [facility] [place] [facility], [address] [place] [address] 08/12/[address], [facility] - [address] [facility], [address] [place] [address] 08/12/2025 Procedure Pass MRI, [facility] - [address] [facility], [address] [place] [address] 10/14/2025 1:00 PM EST Office Visit [facility] [address] 9th [place] [address] Bettina Braden MD [address] [place] [address] 4 [place] [address] MARTÍN@[facility] 10/19/2025 3:00 PM EST Infusion [facility] at [address] [address] Unknown, MD Hany 02/06/2026 10:30 AM EDT Blood Draw [facility] Lab [address] [place] [address] Saniya Tan MD 55 [facility] 7E [place] [address] DIALLO@[facility] 02/06/2026 11:[address], [facility] General Imaging - [address] [place] [address] Saniya Tan MD 55 [facility] 7E [place] [address] DIALLO@[facility] 02/06/2026 12:30 PM EDT Appointment MRI, [facility] - [address], [address] [place] [address] Saniya Tan MD [address] [address] DIALLO@[facility] 02/07/2026 9:30 AM EDT Appointment MRI, [facility] - [address], [address] [place] [address] Domenic Goldsmith MD, PhD 55 [facility] 7[address] [place] [address] MQADAN@[facility] 02/14/2026 11:00 AM EDT Office Visit [facility] 32 [facility], 7th Floor, [address] [place] [address] Saniya Tan MD [address] [place] [address] 7[address] [place] [address] DIALLO@[facility] 02/14/2026 11:00 AM EDT Office Visit [facility] 32 [facility], 7th Floor, [address] [place] [address] Roxana Ornelas MD 55 [facility] 3 [place] [address] CHIN@[facility] 02/21/2026 10:00 AM EDT Telemedicine - audio only [facility] General & Gastrointestinal Surgery 55 [facility], 4th Floor, [address] [place] [address] Janie Blackmon, FLAP LINING BINDER 55 [facility] 460 [place] [phone] [email or web address] g documented as of this encounter Visit Diagnoses Not on filedocumented in this encounter Care Teams Public Interviewer Relationship Specialty Start Date End Date Frankie Padron MD [address] [place] [address] [place] [address] PCP - General Internal Medicine 07/16/19 Saniya Tan MD [address] [place] [address] 7[address] [place] [address] DIALLO@[email or web address] jose angel Primary Oncologist Medical Oncology 12/22/20 Domenic Goldsmith MD, PhD [address] [place] [address] [address] [place] [address] JIGAR@[email or web address] u Surgical Oncology 01/11/21 Mary Sanon MD [address] [place] [address] 3 [place] [address] maria [email or web address]. [facility] Radiation Oncology 07/03/22 Marcy Garvey RN 55 [facility] 3 [place] [address] [email or web address] jose angel Primary Infusion Nurse 10/23/23 11/19/23 Davina Peraza RN Associate Infusion Nurse 10/29/2311/03 Davina Peraza RN 55 [place] [address] [email or web address] Primary Infusion Nurse 11/20/23 documented as of this encounter Additional Source Comments The information contained in this document represents components of the legal health record. It is not the complete legal health record.[facility]
--- OUTSIDE RECORDS SUMMARY | 2025-09-16 20:47 | XMS_ITS | Encounter Summary ---
Author Organization [facility] Address [address] [facility] [address] [place] [address] Phone Care Team Providers Care Vp Securities Name Role Phone Frankie Padron MD Primary Care Provider Saniya Tan MD Unavailable Domenic Goldsmith MD, PhD Unavailable [phone] Robert Lomax MD Unavailable [phone] Mary Sanon MD Unavailable [phone] Marcy Garvey RN Unavailable [email or web address] Davina Peraza RN Unavailable [email or web address] Davina Peraza RN Unavailable [email or web address] Encounter Details Date Type Department Care Team (Late st Contact Info) Description 10/20/2020 Procedure Pass [facility] Imaging - [place], [facility] [address] [place] [address] Social History Tobacco Use Types Packs/Day Years [...] Contact Info) Description 02/15/2025 Procedure Pass MRI, [facility] General Imaging - [place] [address] [facility], [address] [place] [address] 08/12/[address], [facility] General Imaging - [place] [address] [facility], [address] [place] [address] 08/12/[address], [facility] Imaging - [place] [address] [facility], [address] [place] [address] 08/12/2025 Procedure Pass MRI, [facility] General Imaging - [place] [address] [facility], [address] [place] [address] 10/14/2025 1:00 PM EST Office Visit [facility] 165 [facility] 9th [place] [address] Bettina Braden MD [address] [place] [address] MARTÍN@[facility] 10/19/2025 3:[address] [facility] at [address] [address] Hany Leach MD 02/06/2026 10:30 AM EDT Blood Draw [facility] Lab [place] [facility] [place] [place] [address] Saniya Tan MD [address] [place] [address] DIALLO@[facility] 02/06/2026 11:[address], [facility] General Imaging - [place] 52 [facility], [address] [place] [address] Saniya Tan MD [address] [place] [address] DIALLO@[facility] 02/06/2026 12:30 PM EDT Appointment MRI, [facility] Imaging - [place] 52 [facility], [address] [place] [address] Saniya Tan MD 55 [facility] 7E [place] [address] DIALLO@[facility] 02/07/2026 9:30 AM EDT Appointment MRI, [facility] - [address], [address] [place] [address] Domenic Goldsmith MD, PhD 55 [facility] 7B [place] [address] JIAGR@[facility] 02/14/2026 11:00 AM EDT Office [facility] 32 [facility], 7th Floor, [address] [place] [address] Saniya Tan MD [address] [place] [address] 7[address] [place] [address] DIALLO@[facility] 02/14/2026 11:00 AM EDT Office [facility] 32 [facility], 7th Floor, [address] [place] [address] Roxana Ornelas MD [address] [facility] 3 [place] [address] CHIN@[facility] 02/21/2026 10:00 AM EDT Telemedicine - audio only [facility] General & Gastrointestinal Surgery 55 [facility], 4th Floor, [address] [place] [address] Janie Blackmon FNP 55 [facility] 460 [place] [phone] [email or web address] g documented as of this encounter Visit Diagnoses Not on filedocumented in this encounter Care Teams Vp Securities Relationship Specialty Start Date End Date Frankie Padron MD [address] [place] [address] [place] [address] PCP - General Internal Medicine 07/16/19 Saniya Tan MD [address] [place], [place] DIALLO@[email or web address] Primary Oncologist Medical Oncology 12/22/20 Domenic Goldsmith MD, PhD [address] [place] [address] JIGAR@[email or web address] Surgical Oncology 01/11/21 Robert Lomax MD [address] [place] [address] MARCELA@[facility] Cardiothoracic Surgery 07/03/22 08/18/23 Mary Sanon MD [address] [facility] 3 [place] [address] maria [email or web address] Radiation Oncology 07/03/22 Marcy Garvey RN [address] 3 [place] [address] [email or web address] Primary Infusion Nurse 10/23/23 11/19/23 Davina Peraza RN Associate Infusion Nurse 10/29/23 11/19/23 Daivna Peraza RN 55 [place] [address] [email or web address] Primary Infusion Nurse 11/20/23 documented as of this encounter Additional Source Comments The information contained in this document represents components of the legal health record. It is not the complete legal health record.[facility]
--- OUTSIDE RECORDS SUMMARY | 2025-09-16 20:47 | XMS_ITS | Encounter Summary ---
Author Organization [facility] Address [address] [facility] [address] [place] [address] Phone Care Team Providers Care Transition Mgr Rn Name Role Phone Frankie Padron MD Primary Care Provider Saniya Tan MD Unavailable Domenic Goldsmith MD, PhD Unavailable [phone] Robert Lomax MD Unavailable [phone] Mary Sanon MD Unavailable Marcy Garvey RN Unavailable [email or web address] Davina Peraza RN Unavailable [email or web address] Davina Peraza RN Unavailable [email or web address] Encounter Details Date Type Department Care Team (Late st Contact Info) Description 10/20/2020 Procedure Pass [facility] Imaging - [place], [facility] 2013 [place] [address] Social History Tobacco Use Types Packs/Day Years [...] Pass MRI, [facility] General Imaging - [place] [address] [facility], [address] [place] [address] 08/12/[address], [facility] General Imaging - [place] [address] [facility], [address] [place] [address] 08/12/[address], [facility] General Imaging - [place] [address] [facility], [address] [place] [address] 08/12/2025 Procedure Pass MRI, [facility] General Imaging - [place] [address] [facility], [address] [place] [address] 10/14/2025 1:00 PM EST Office Visit [facility] 165 [facility] 9th [place] [address] Bettina Braden MD [address] [place] [address] MARTÍN@[facility] 10/19/2025 3:00 PM EST Infusion [facility] at [address] [address] Hany Leach MD 02/06/2026 10:30 AM EDT Blood Draw [facility] Lab [place] 52 [facility] [place] [address] Saniya Tan MD [address] [place] [address] DIALLO@[facility] 02/06/2026 11:[address], [facility] General Imaging - [place] 52 [facility], [address] [place] [address] Saniya Tan MD [address] [place] [address] DIALLO@[facility] 02/06/2026 12:30 PM EDT Appointment MRI, [facility] General Imaging - [place] 52 [facility], [address] [place] [address] Saniya Tan MD 55 [facility] 7[address] [place] [address] DIALLO@[facility] 02/07/2026 9:30 AM EDT Appointment MRI, [facility] Imaging - [address], [address] [place] [address] Domenic Goldsmith MD, PhD 55 [facility] 7[address] [place] [address] JIGAR@[facility] 02/14/2026 11:00 AM EDT Office [facility] 32 [facility], 7th Floor, [address] [place] [address] Saniya Tan MD [address] [place] [address] 7[address] [place] [address] DIALLO@[facility] 02/14/2026 11:00 AM EDT Office Visit [facility] 32 [facility], 7th Floor, [address] [place] [address] Roxana Ornelas MD 55 [facility] 3 [place] [address] CHIN@[facility] 02/21/2026 10:00 AM EDT Telemedicine - audio only [facility] General & Gastrointestinal Surgery 55 [facility], 4th Floor, [address] [place] [address] Janie Blackmon FNP 55 [facility] 460 [place] [phone] [email or web address] g documented as of this encounter Visit Diagnoses Not on filedocumented in this encounter Care Teams Transition Mgr Rn Relationship Specialty Start Date End Date Frankie Padron MD [address] [place] [address] [place] [address] PCP - General Internal Medicine 07/16/19 Saniya Tan MD [address] [place], [place] DIALLO@[email or web address] Primary Oncologist Medical Oncology 12/22/20 Domenic Goldsmith MD, PhD [address] [place] [address] JIGAR@[facility] Surgical Oncology 01/11/21 Robert Lomax MD [address] [facility] [address] [place] [address] MARCELA@[facility] Cardiothoracic Surgery 07/03/22 08/18/23 Mary Sanon MD 55 [facility] 3 [place] [address] maria [email or web address] Radiation Oncology 07/03/22 Marcy Garvey RN 55 [facility] 3 [place] [address] [email or web address] Primary Infusion Nurse 10/23/23 11/19/23 Davina Peraza RN Associate Infusion Nurse 10/29/23 11/19/23 Davina Peraza RN 55 [place] [address] [email or web address] Primary Infusion Nurse 11/20/23 documented as of this encounter Additional Source Comments The information contained in this document represents components of the legal health record. It is not the complete legal health record.[facility]
--- OUTSIDE RECORDS SUMMARY | 2025-09-16 20:47 | XMS_ITS | Encounter Summary ---
Author Organization [facility] Address [address] [facility] [address] [place] [address] Phone Care Team Providers Care Machine Cloth Examiner Name Role Phone Frankie Padron MD Primary Care Provider Saniya Tan MD Unavailable Domenic Goldsmith MD, PhD Unavailable [phone] Robert Lomax MD Unavailable [phone] Mary Sanon MD Unavailable Marcy Garvey RN Unavailable [email or web address] Davina Peraza RN Unavailable [email or web address] Davina Peraza RN Unavailable [email or web address] Encounter Details Date Type Department Care Team (Late st Contact Info) Description 08/08/2023 Procedure Pass [facility] PETCT Imaging, [place] 2 [address] [facility], 2nd [place] [address] Social History Tobacco Use Types Packs/Day Years [...] Contact Info) Description 02/15/2025 Procedure Pass MRI, [facility] Imaging - [address] [facility], [address] [place] [address] 08/12/[address], [facility] - [place] [address] [facility], [address] [place] [address] 08/12/[address], [facility] - [place] [address] [facility], [address] [place] [address] 08/12/2025 Procedure Pass MRI, [facility] Imaging - [address] [facility], [address] [place] [address] 10/14/2025 1:00 PM EST Office Visit [facility] [address] 9th [place] [address] Bettina Braden MD 55 [facility] 4 [place] [address] MARTÍN@[email or web address] 10/19/2025 3:00 PM EST Infusion [facility] [place] 30 [place] [address] Hany Leach MD 02/06/2026 10:30 AM EDT Blood Draw [facility] Lab [place] [address] [place] [address] Saniya Tan MD [address] [place] [address] [place] [address] DIALLO@[email or web address] 02/06/2026 11:[address], [facility] Imaging - [address], [address] [place] [address] Saniya Tan MD 55 [facility] 7E [place] [address] DIALLO@[email or web address] 02/06/2026 12:30 PM EDT Appointment MRI, [facility] Imaging - [address], [address] [place] [address] Saniya Tan MD 55 [facility] 7E [place] [address] DIALLO@[email or web address] 02/07/2026 9:30 AM EDT Appointment MRI, [facility] Imaging - [address], [address] [place] [address] Domenic Goldsmith MD, PhD 55 [facility] 7B [place] [address] [email or web address] 02/14/2026 11:00 AM EDT Office [facility] 32 [facility], 7th Floor, [address] [place] [address] Saniya Tan MD 55 [facility] 7E [place] [address] DIALLO@[email or web address] 02/14/2026 11:00 AM EDT Office Visit [facility] 32 [facility], 7th Floor, [address] [place] [address] Roxana Ornelas MD 55 [facility] 3 [place] [address] CHIN@[email or web address] 02/21/2026 10:00 AM EDT Telemedicine - audio only [facility] General & Gastrointestinal Surgery 55 [facility], 4th Floor, [address] [place] [address] Janie Blackmon FNP 55 [facility] 460 [place] [phone] [email or web address] g documented as of this encounter Visit Diagnoses Not on filedocumented in this encounter Care Teams Machine Cloth Examiner Relationship Specialty Start Date End Date Frankie Padron MD [address] [place] [address] [place] [address] PCP - General Internal Medicine 07/16/19 Saniya Tan MD 55 [facility] [address] [place] [address] DIALLO@[email or web address] Primary Oncologist Medical Oncology 12/22/20 Domenic Goldsmith MD, PhD 55 [facility] 7B [place] [address] [email or web address] Surgical Oncology 01/11/21 Robert Lomax MD 55 [facility] 7B [place] [address] MARCELA@[email or web address] Cardiothoracic Surgery 07/03/22 08/18/23 Mary Sanon MD 55 [facility] 3 [place] [address] [email or web address] [email or web address] Radiation Oncology 07/03/22 Marcy Garvey RN 55 [facility] 3 [place] [address] [email or web address] Primary Infusion Nurse 10/23/23 11/19/23 Davina Peraza RN Associate Infusion Nurse 10/29/23 11/19/23 Davina Peraza, RACHEL [address] [place] [address] [email or web address] Primary Infusion Nurse 11/20/23 documented as of this encounter Additional Source Comments The information contained in this document represents components of the legal health record. It is not the complete legal health record.[facility]
--- OUTSIDE RECORDS SUMMARY | 2025-09-16 20:47 | XMS_ITS | Encounter Summary ---
Author Organization [facility] Address 399 [facility] [address] [place] [address] Phone Care Team Providers Care Film Color Tester Name Role Phone Frankie Padron MD Primary Care Provider Saniya Tan MD Unavailable Domenic Goldsmith MD, PhD Unavailable [phone] Robert Lomax MD Unavailable Mary Sanon MD Unavailable [phone] Marcy Garvey RN Unavailable [email or web address] Davina Peraza RN Unavailable [email or web address] Davina Peraza RN Unavailable [email or web address] Encounter Details Date Type Department Care Team (Late st Contact Info) Description 08/08/2023 Procedure Pass [facility] PETCT Imaging, [place] [address] [facility], 2nd [place] [address] Social History Tobacco Use Types Packs/Day Years [...] Contact Info) Description 02/15/2025 Procedure Pass MRI, [facility] Imaging - [address] [facility], [address] [place] [address] 08/12/[address], [facility] Imaging - [place] [facility], [address] [place] [address] 08/12/[address], [facility] - [place] [facility], [address] [place] [address] 08/12/2025 Procedure Pass MRI, [facility] Imaging - [address] [facility], [address] [place] [address] 10/14/2025 1:00 PM EST Office Visit [facility] [address] 9th [place] [address] Bettina Braden MD 55 [facility] 4 [place] [address] MARTÍN@[facility] 10/19/2025 3:00 PM EST Infusion [facility] [place] 30 [place] [address] Hany Leach MD 02/06/2026 10:30 AM EDT Blood Draw [facility] Lab [place] [address] [place] [address] Saniya Tan MD [address] [place] [address] [place] [address] DIALLO@[facility] 02/06/2026 11:[address], [facility] Imaging - [address], [address] [place] [address] Saniya Tan MD 55 [facility] 7E [place] [address] DIALLO@[facility] 02/06/2026 12:30 PM EDT Appointment MRI, [facility] Imaging - [address], [address] [place] [address] Saniya Tan MD 55 [facility] 7E [place] [address] DIALLO@[facility] 02/07/2026 9:30 AM EDT Appointment MRI, [facility] Imaging - [address], [address] [place] [address] Domenic Goldsmith MD, PhD 55 [facility] 7B [place] [address] [email or web address] 02/14/2026 11:00 AM EDT Office Visit [facility] 32 [facility], 7th Floor, [address] [place] [address] Saniya Tan MD 55 [facility] 7E [place] [address] DIALLO@[facility] 02/14/2026 11:00 AM EDT Office Visit [facility] 32 [facility], 7th Floor, [address] [place] [address] Roxana Ornelas MD 55 [facility] 3 [place] [address] CHIN@[email or web address] 02/21/2026 10:00 AM EDT Telemedicine - audio only [facility] General & Gastrointestinal Surgery 55 [facility], 4th Floor, [address] [place] [address] Janie Blackmon FNP 55 [facility] 460 [place] [phone] [email or web address] g documented as of this encounter Visit Diagnoses Not on filedocumented in this encounter Care Teams Film Color Tester Relationship Specialty Start Date End Date Frankie Padron MD [address] [place] [address] [place] [address] PCP - General Internal Medicine 07/16/19 Saniya Tan MD 55 [facility] [address] 7[address] [place] [address] DIALLO@[email or web address] Primary Oncologist Medical Oncology 12/22/20 Domenic Goldsmith MD, PhD 55 [facility] 7B [place] [address] [email or web address] Surgical Oncology 01/11/21 Robert Lomax MD 55 [facility] 7B [place] [address] [email or web address]@[email or web address] Cardiothoracic Surgery 07/03/22 08/18/23 Mary Sanon MD 55 [facility] 3 [place] [address] [email or web address] Radiation Oncology 07/03/22 Marcy Garvey RN 55 [facility] 3 [place] [address] [email or web address] Primary Infusion Nurse 10/23/23 11/19/23 Davina Peraza RN Associate Infusion Nurse 10/29/23 11/19/23 Davina Peraza, RACHEL [address] [place] [address] [email or web address] Primary Infusion Nurse 11/20/23 documented as of this encounter Additional Source Comments The information contained in this document represents components of the legal health record. It is not the complete legal health record.[facility]
--- OUTSIDE RECORDS SUMMARY | 2025-09-16 20:47 | XMS_ITS | Encounter Summary ---
Author Organization [facility] Address 399 [facility] [address] [place] [address] Phone Care Team Providers Care Frame Feeder Name Role Phone Frankie Padron MD Primary Care Provider Saniya Tan MD Unavailable Domenic Goldsmith MD, PhD Unavailable [phone] Robert Lomax MD Unavailable [phone] Mary Sanon MD Unavailable [phone] Marcy Garvey RN Unavailable [email or web address] Davina Peraza RN Unavailable [email or web address] Davina Peraza RN Unavailable [email or web address] Encounter Details Date Type Department Care Team (Late st Contact Info) Description 11/01/2019 Procedure Pass MRI, [facility] - [address], [address] [place] [address] Social History Tobacco Use Types Packs/Day Years [...] [facility] - [place] [address] [facility], [address] [place] [address] 08/12/[address], [facility] Imaging - [place] [address] [facility], [address] [place] [address] 08/12/[address], [facility] Imaging - [place] [address] [facility], [address] [place] [address] 08/12/2025 Procedure Pass MRI, [facility] Imaging - [place] [address] [facility], [address] [place] [address] 10/14/2025 1:00 PM EST Office Visit [facility] 165 [facility] 9th [place] [address] Bettina Braden MD [address] [place] [address] 4 [place] [address] MARTÍN@[facility] 10/19/2025 3:00 PM EST Infusion [facility] at [address] [address] Hany Leach MD 02/06/2026 10:30 AM EDT Blood Draw [facility] Lab [address] [place] [address] Saniya Tan MD [address] [place] [address] DIALLO@[facility] 02/06/2026 11:[address], [facility] [place] [address] [facility], [address] [place] [address] Saniya Tan MD [address] [place] [address] 7[address] [place] [address] DIALLO@[facility] 02/06/2026 12:30 PM EDT Appointment MRI, [facility] - [place] [address] [facility], [address] [place] [address] Saniya Tan MD 55 [facility] 7E [place] [address] DIALLO@[facility] 02/07/2026 9:30 AM EDT Appointment MRI, [facility] - [place] 52 [facility], [address] [place] [address] Domenic Goldsmith MD, PhD 55 [facility] 7B [place] [address] JIGAR@[facility] 02/14/2026 11:00 AM EDT Office Visit [facility] 32 [facility], 7th Floor, [address] [place] [address] Saniya Tan MD 55 [facility] 7E [place] [address] DIALLO@[facility] 02/14/2026 11:00 AM EDT Office Visit [facility] 32 [facility], 7th Floor, [address] [place] [address] Roxana Ornelas MD 55 [facility] 3 [place] [address] CHIN@[email or web address] 02/21/2026 10:00 AM EDT Telemedicine - audio only [facility] General & Gastrointestinal Surgery 55 [facility], 4th Floor, [address] [place] [address] Janie Blackmon FNP 55 [facility] 460 [place] [phone] [email or web address] g documented as of this encounter Visit Diagnoses Not on filedocumented in this encounter Additional Health Concerns Infection Onset Date Last Indicated Resolved Time Influenza 11/01/2019 11/01/2019 11/08/2019 1:23 AM EST documented as of this encounter Care Teams Frame Feeder Relationship Specialty Start Date End Date Frankie Padron MD [address] [place] [address] [place] [address] PCP - General Internal Medicine 07/16/19 Saniya Tan MD [address] [place] [address] DIALLO@[email or web address] Primary Oncologist Medical Oncology 12/22/20 Domenic Goldsmith MD, PhD [address] [place] [address] [place] [address] JIGAR@[email or web address] Surgical Oncology 01/11/21 Robert Lomax MD [address] [place] [address] [place] [address] MARCELA@[facility] Cardiothoracic Surgery 07/03/22 08/18/23 Mary Sanon MD 55 [facility] 3 [place] [address] maria [email or web address] Radiation Oncology 07/03/22 Marcy Garvey RN 55 [facility] 3 [place] [address] [email or web address] Primary Infusion Nurse 10/23/23 11/19/23 Davina Peraza RN Associate Infusion Nurse 10/29/23 11/19/23 Davina Peraza RN 55 [place] [address] [email or web address] Primary Infusion Nurse 11/20/23 documented as of this encounter Additional Source Comments The information contained in this document represents components of the legal health record. It is not the complete legal health record.[facility]
--- OUTSIDE RECORDS SUMMARY | 2025-09-16 20:48 | XMS_ITS | Encounter Summary ---
Author Organization [facility] Address [address] [place] [address] Phone Care Team Providers Care Replacer Name Role Phone Frankie Padron MD Primary Care Provider Saniya Tan MD Unavailable Domenic Goldsmith MD, PhD Unavailable [phone] Mray Sanon MD Unavailable [phone] Davina Peraza RN Unavailable [email or web address] Encounter Details Date Type Department Care Team (Late st Contact Info) Description 05/24/2025 Procedure Pass MRI, [facility] Imaging - [address], [address] [place] [address] Social History Tobacco Use Types [...] Description 02/15/2025 Procedure Pass MRI, [facility] Imaging - [place] [address] [facility], [address] [place] [address] 08/12/[address] - [place] [address] [facility], [address] [place] [address] 08/12/[address] - [place] [address] [facility], [address] [place] [address] 08/12/2025 Procedure Pass MRI, [facility] - [place] 52 [facility], [address] [place] [address] 10/14/2025 1:00 PM EST Office Visit [facility] 165 [facility] 9th [place] [address] Bettina Braden MD [address] [place] [address] [email or web address] 10/19/2025 3:00 PM EST Infusion [facility] [place] 30 [place] [address] Hany Leach MD 02/06/2026 10:30 AM EDT Blood Draw [facility] Lab [address] [address] Saniya Tan MD [address] [address] DIALLO@[email or web address] 02/06/2026 11:[address], [facility] Imaging - [address], [address] [place] [address] Saniya Tan MD [address] [place] [address] DIALLO@[email or web address] 02/06/2026 12:30 PM EDT Appointment MRI, [facility] - [address], [address] [place] [address] Saniya Tan MD [address] [place] [address] DIALLO@[facility] 02/07/2026 9:30 AM EDT Appointment MRI, [facility] - [address], [address] [place] [address] Domenic Goldsmith MD, PhD [address] [address] [email or web address] 02/14/2026 11:00 AM EDT Office Visit [facility] 32 [facility], 7th Floor, [address] [place] [address] Saniya Tan MD [address] [address] DIALLO@[email or web address] 02/14/2026 11:00 AM EDT Office Visit [facility] 32 [facility], 7th Floor, [address] [place] [address] Roxana Ornelas MD 55 [facility] 3 [place] [address] CHIN@[email or web address] 02/21/2026 10:00 AM EDT Telemedicine - audio only [facility] General & Gastrointestinal Surgery 55 [facility], 4th Floor, [address] [place] [address] Janie Blackmon FNP 55 [facility] 460 [place] [phone] [email or web address] g documented as of this encounter Visit Diagnoses Not on filedocumented in this encounter Care Teams Replacer Relationship Specialty Start Date End Date Fraknie Padron MD [address] [place] [address] [place] [address] PCP - General Internal Medicine 07/16/19 Saniya Tan MD 55 [facility] 7E [place] [address] DIALLO@[email or web address] Primary Oncologist Medical Oncology 12/22/20 Domenic Goldsmith MD, PhD 55 [facility] 7B [place] [address] JIGAR@[email or web address] Surgical Oncology 01/11/21 Mary Sanon MD 55 [facility] 3 [place] [address] [email or web address] [email or web address] u Radiation Oncology 07/03/22 Davina Peraza, RN [address] [place] [address] [email or web address] Primary Infusion Nurse 11/20/23 documented as of this encounter Additional Source Comments The information contained in this document represents components of the legal health record. It is not the complete legal health record.[facility]
--- OUTSIDE RECORDS SUMMARY | 2025-09-16 20:48 | XMS_ITS | Encounter Summary ---
Author Organization [facility] Address [address] [place] [address] Phone Care Team Providers Care Dining Room Helper Name Role Phone Frankie Padron MD Primary Care Provider Saniya Tan MD Unavailable Domenic Goldsmith MD, PhD Unavailable [phone] Mary Sanon MD Unavailable [phone] Davina Peraza RN Unavailable [email or web address] Encounter Details Date Type Department Care Team (Late st Contact Info) Description 05/24/[address], [facility] - [address], [address] [place] [address] Social History Tobacco Use Types [...] Info) Description 02/15/2025 Procedure Pass MRI, [facility] - [place] [address] [facility], [address] [place] [address] 08/12/[address], [facility] [place] [address] [facility], [address] [place] [address] 08/12/[address], [facility] [place] [address] [facility], [address] [place] [address] 08/12/2025 Procedure Pass MRI, [facility] - [place] 52 [facility], [address] [place] [address] 10/14/2025 1:00 PM EST Office Visit [facility] 165 [facility] 9th [place] [address] Bettina Braden MD [address] [place] [address] [email or web address] [email or web address] 10/19/2025 3:00 PM EST Infusion [facility] [place] [address] [place] [address] Hany Leach MD 02/06/2026 10:30 [address] [facility] Lab [address] [address] Saniya Tan MD [address] [address] DIALLO@[facility] 02/06/2026 11:[address], [facility] - [address], [address] [place] [address] Saniya Tan MD [address] [place] [address] DIALLO@[facility] 02/06/2026 12:30 PM EDT Appointment MRI, [facility] - [address], [address] [place] [address] Saniya Tan MD [address] [place] [address] DIALLO@[facility] 02/07/2026 9:30 AM EDT Appointment MRI, [facility] - [address], [address] [place] [address] Domenic Goldsmith MD, PhD [address] [address] MQJUNIOR@[facility] 02/14/2026 11:00 AM EDT Office Visit [facility] [place] 32 [facility], 7th Floor, [address] [place] [address] Saniya Tan MD [address] [address] [email or web address] [email or web address] 02/14/2026 11:00 AM EDT Office Visit [facility] [place] 32 [facility], 7th Floor, [address] [place] [address] Roxana Ornelas MD 55 [facility] 3 [place] [address] CHIN@[facility] 02/21/2026 10:00 AM EDT Telemedicine - audio only [facility] General & Gastrointestinal Surgery 55 [facility], 4th Floor, [address] [place] [address] Janie Blackmon FNP 55 [facility] 460 [place] [phone] [email or web address] g documented as of this encounter Visit Diagnoses Not on filedocumented in this encounter Care Teams Dining Room Helper Relationship Specialty Start Date End Date Frankie Padron MD [address] [place] [address] [place] [address] PCP - General Internal Medicine 07/16/19 Saniya Tan MD 55 [facility] [address]E [place] [address] DIALLO@[email or web address] Primary Oncologist Medical Oncology 12/22/20 Domenic Goldsmith MD, PhD 55 [facility] [address] [place] [address] JIGAR@[email or web address] Surgical Oncology 01/11/21 Mary Sanon MD 55 [facility] 3 [place] [address] [email or web address] [email or web address] u Radiation Oncology 07/03/22 Davina Peraza, RN [address] [place] [address] [email or web address] Primary Infusion Nurse 11/20/23 documented as of this encounter Additional Source Comments The information contained in this document represents components of the legal health record. It is not the complete legal health record.[facility]
--- OUTSIDE RECORDS SUMMARY | 2025-09-16 20:48 | XMS_ITS | Encounter Summary ---
Author Organization [facility] Address [address] [place] [address] Phone Care Team Providers Care Manager Radiation Name Role Phone Frankie Padron MD Primary Care Provider Saniya Tan MD Unavailable Domenic Goldsmith MD, PhD Unavailable [phone] Mary aSnon MD Unavailable [phone] Davina Peraza RN Unavailable [email or web address] Encounter Details Date Type Department Care Team (Late st Contact Info) Description 12/07/2024 Procedure Pass MRI, [facility] - [address], [address] [place] [address] Social History Tobacco Use Types [...] Contact Info) Description 02/15/2025 Procedure Pass MRI, [facility] - [place] [address] [facility], [address] [place] [address] 08/12/[address], [facility] - [place] [address] [facility], [address] [place] [address] 08/12/[address], [facility] [place] [address] [facility], [address] [place] [address] 08/12/2025 Procedure Pass MRI, [facility] [place] 52 [facility], [address] [place] [address] 10/14/2025 1:00 PM EST Office Visit [facility] 165 [facility] 9th [place] [address] Bettina Braden MD [address] [place] [address] MARTÍN@[email or web address] 10/19/2025 3:00 PM EST Infusion [facility] [place] 30 [place] [address] Hany Leach MD 02/06/2026 10:30 AM EDT Blood Draw [facility] Lab [address] [address] Saniya Tan MD [address] [place] [address] [address] DIALLO@[email or web address] 02/06/2026 11:[address], [facility] - [address], [address] [place] [address] Saniya Tan MD [address] [place] [address] DIALLO@[email or web address] 02/06/2026 12:30 PM EDT Appointment MRI, [facility] - [address], [address] [place] [address] Saniya Tan MD [address] [place] [address] DIALLO@[email or web address] 02/07/2026 9:30 AM EDT Appointment MRI, [facility] - [address], [address] [place] [address] Domenic Goldsmith MD, PhD [address] [address] MQJUNIOR@[facility] 02/14/2026 11:00 AM EDT Office Visit [facility] [address] [facility], 7th Floor, [address] [place] [address] Saniya Tan MD [address] [address] DIALLO@[email or web address] 02/14/2026 11:00 AM EDT Office Visit [facility] [address] [facility], 7th Floor, [address] [place] [address] Roxana Ornelas MD 55 [facility] 3 [place] [address] CHIN@[facility] 02/21/2026 10:00 AM EDT Telemedicine - audio only [facility] General & Gastrointestinal Surgery 55 [facility], 4th Floor, [address] [place] [address] Janie Blackmon FNP 55 [facility] 460 [place] [phone] [email or web address] g documented as of this encounter Visit Diagnoses Not on filedocumented in this encounter Care Teams Manager Radiation Relationship Specialty Start Date End Date Frankie Padron MD [address] [place] [address] [place] [address] PCP - General Internal Medicine 07/16/19 Saniya Tan MD 55 [facility] 7E [place] [address] DIALLO@[email or web address] Primary Oncologist Medical Oncology 12/22/20 Domenic Goldsmith MD, PhD 55 [facility] 7B [place] [address] JIGAR@[email or web address] Surgical Oncology 01/11/21 Mary Sanon MD 55 [facility] 3 [place] [address] maria [email or web address] u Radiation Oncology 07/03/22 Davina Peraza, RN [address] [place] [address] [email or web address] Primary Infusion Nurse 11/20/23 documented as of this encounter Additional Source Comments The information contained in this document represents components of the legal health record. It is not the complete legal health record.[facility]
--- OUTSIDE RECORDS SUMMARY | 2025-09-16 20:48 | XMS_ITS | Encounter Summary ---
Author Organization [facility] Address [address] [place] [address] Phone Care Team Providers Care Chief Merchandising Officer Name Role Phone Frankie Padron MD Primary Care Provider Saniya Tan MD Unavailable Domenic Goldsmith MD, PhD Unavailable [phone] Mary Sanon MD Unavailable [phone] Davina Peraza RN Unavailable [email or web address] Encounter Details Date Type Department Care Team (Late st Contact Info) Description 05/24/[address], [facility] - [address], [address] [place] [address] Social History Tobacco Use Types [...] Contact Info) Description 02/15/2025 Procedure Pass MRI, [facility] [place] [address] [facility], [address] [place] [address] 08/12/[address], [facility] [place] [address] [facility], [address] [place] [address] 08/12/[address], [facility] [place] [address] [facility], [address] [place] [address] 08/12/2025 Procedure Pass MRI, [facility] [place] 52 [facility], [address] [place] [address] 10/14/2025 1:00 PM EST Office Visit [facility] 165 [facility] 9th [place] [address] Bettina Braden MD [address] [place] [address] MARTÍN@[email or web address] 10/19/2025 3:00 PM EST Infusion [facility] [place] 30 [place] [address] Hany Leach MD 02/06/2026 10:30 AM EDT Blood Draw [facility] Lab [address] [address] Saniya Tan MD [address] [address] DIALLO@[facility] 02/06/2026 11:[address], [facility] - [address], [address] [place] [address] Saniya Tan MD [address] [place] [address] DIALLO@[facility] 02/06/2026 12:30 PM EDT Appointment MRI, [facility] - [address], [address] [place] [address] Saniya Tan MD [address] [place] [address] DIALLO@[facility] 02/07/2026 9:30 AM EDT Appointment MRI, [facility] - [address], [address] [place] [address] Domenic Goldsmith MD, PhD [address] [address] MQJUNIOR@[facility] 02/14/2026 11:00 AM EDT Office Visit [facility] [address] [facility], 7th Floor, [address] [place] [address] Saniya Tan MD [address] [address] DIALLO@[email or web address] 02/14/2026 11:00 AM EDT Office Visit [facility] [address] [facility], 7th Floor, [address] [place] [address] Roxana Ornelas MD 55 [facility] 3 [place] [address] CHIN@[facility] 02/21/2026 10:00 AM EDT Telemedicine - audio only [facility] General & Gastrointestinal Surgery 55 [facility], 4th Floor, [address] [place] [address] Janie Blackmon FNP 55 [facility] 460 [place] [phone] [email or web address] g documented as of this encounter Visit Diagnoses Not on filedocumented in this encounter Care Teams Chief Merchandising Officer Relationship Specialty Start Date End Date Frankie Padron MD [address] [place] [address] [place] [address] PCP - General Internal Medicine 07/16/19 Saniya Tan MD 55 [facility] 7E [place] [address] DIALLO@[email or web address] Primary Oncologist Medical Oncology 12/22/20 Domenic Goldsmith MD, PhD 55 [facility] 7B [place] [address] JIGAR@[facility] Surgical Oncology 01/11/21 Mary Sanon MD 55 [facility] 3 [place] [address] maria [email or web address] u Radiation Oncology 07/03/22 Davina Peraza, RN [address] [place] [address] [email or web address] Primary Infusion Nurse 11/20/23 documented as of this encounter Additional Source Comments The information contained in this document represents components of the legal health record. It is not the complete legal health record.[facility]
--- OUTSIDE RECORDS SUMMARY | 2025-09-16 20:48 | XMS_ITS | Encounter Summary ---
Author Organization [facility] Address [address] [place] [address] Phone Care Team Providers Care Dinkey Mechanic Name Role Phone Frankie Padron MD Primary Care Provider Saniya Tan MD Unavailable Domenic Goldsmith MD, PhD Unavailable [phone] Mary Sanon MD Unavailable Davina Peraza RN Unavailable [email or web address] Encounter Details Date Type Department Care Team (Late st Contact Info) Description 06/24/2025 Procedure Pass [facility] 55 [place] [phone] Social History Tobacco Use Types Packs/Day Years [...] Info) Description 02/15/2025 Procedure Pass MRI, [facility] - [address], [address] [place] [address] 08/12/[address], [facility] - [address], [address] [place] [address] 08/12/[address], [facility] [place] 52 [facility], [address] [place] [address] 08/12/2025 Procedure Pass MRI, [facility] - [address], [address] [place] [address] 10/14/2025 1:00 PM EST Office Visit [facility] 165 [facility] 9th [place] [address] Bettina Braden MD [address] [place] [address] MARTÍN@[facility] [email or web address] [facility] 10/19/2025 3:00 PM EST Infusion [facility] at [address] [address] Hany Leach MD 02/06/2026 10:30 AM EDT Blood Draw [facility] [address] [address] Saniya Tan MD [address] [address] DIALLO@[facility] 02/06/2026 11:[address], [facility] - [address], [address] [place] [address] Saniya Tan MD [address] [place] [address] DIALLO@[facility] 02/06/2026 12:30 PM EDT Appointment MRI, [facility] - [address], [address] [place] [address] Saniya Tan MD [address] [place] [address] DIALLO@[facility] 02/07/2026 9:30 AM EDT Appointment MRI, [facility] - [address], [address] [place] [address] Domenic Goldsmith MD, PhD [address] [address] MQADAN@[facility] 02/14/2026 11:00 AM EDT Office Visit [facility] 32 [facility], 7th Floor, [address] [place] [address] Saniya Tan MD 55 [facility] 7E [place] [address] [email or web address] 02/14/2026 11:00 AM EDT Office Visit [facility] 32 [facility], 7th Floor, [address] [place] [address] Roxana Ornelas MD 55 [facility] 3 [place] [address] CHIN@[email or web address] 02/21/2026 10:00 AM EDT Telemedicine - audio only [facility] General & Gastrointestinal Surgery 55 [facility], 4th Floor, [address] [place] [address] Janie Blackmon FNP [address] 460 [place] [phone] [email or web address] g documented as of this encounter Visit Diagnoses Not on filedocumented in this encounter Care Teams Dinkey Mechanic Relationship Specialty Start Date End Date Frankie Padron MD [address] [place] [address] [place] [address] PCP - General Internal Medicine 07/16/19 Saniya Tan MD 55 [facility] 7E [place] [address] DIALLO@[email or web address] Primary Oncologist Medical Oncology 12/22/20 Domenic Goldsmith MD, PhD 55 [facility] 7B [place] [address] MQJUNIOR@[email or web address] Surgical Oncology 01/11/21 Mary Sanon MD 55 [facility] 3 [place] [address] [email or web address] [email or web address] Radiation Oncology 07/03/22 Davina Peraza, RN [address] [place] [address] [email or web address] Primary Infusion Nurse 11/20/23 documented as of this encounter Additional Source Comments The information contained in this document represents components of the legal health record. It is not the complete legal health record.[facility]
--- OUTSIDE RECORDS SUMMARY | 2025-09-16 20:49 | XMS_ITS | Encounter Summary ---
Author Organization [facility] Address [address] [place] [address] Phone Care Team Providers Care Target Developer Name Role Phone Frankie Padron MD Primary Care Provider Saniya Tan MD Unavailable Domenic Goldsmith MD, PhD Unavailable [phone] Mary Sanon MD Unavailable [phone] Davina Peraza RN Unavailable [email or web address] Encounter Details Date Type Department Care Team (Late st Contact Info) Description 03/09/[address], [facility] - [address], [address] [place] [address] Social History Tobacco Use Types [...] Contact Info) Description 02/15/2025 Procedure Pass MRI, [facility] [place] [address] [facility], [address] [place] [address] 08/12/[address], [facility] [place] [address] [facility], [address] [place] [address] 08/12/[address], [facility] [place] [address] [facility], [address] [place] [address] 08/12/2025 Procedure Pass MRI, [facility] [place] 52 [facility], [address] [place] [address] 10/14/2025 1:00 PM EST Office Visit [facility] 165 [facility] 9th [place] [address] Bettina Braden MD [address] [place] [address] MARTÍN@[email or web address] 10/19/2025 3:00 PM EST Infusion [facility] at [place] [address] [place] [address] Hany Leach MD 02/06/2026 10:30 AM EDT Blood Draw [facility] Lab [address] [address] Saniya Tan MD [address] [address] DIALLO@[facility] 02/06/2026 11:[address], [facility] - [address], [address] [place] [address] Saniya Tan MD [address] [place] [address] DIALLO@[facility] 02/06/2026 12:30 PM EDT Appointment MRI, [facility] - [address], [address] [place] [address] Saniya aTn MD [address] [place] [address] DIALLO@[facility] 02/07/2026 9:30 AM EDT Appointment MRI, [facility] - [address], [address] [place] [address] Domenic Goldsmith MD, PhD [address] [address] MQJUNIOR@[facility] 02/14/2026 11:00 AM EDT Office [facility] 32 [facility], 7th Floor, [address] [place] [address] Saniya Tan MD [address] [address] DIALLO@[facility] 02/14/2026 11:00 AM EDT Office [facility] 32 [facility], 7th Floor, [address] [place] [address] Roxana Ornelas MD 55 [facility] 3 [place] [address] CHIN@[facility] 02/21/2026 10:00 AM EDT Telemedicine - audio only [facility] General & Gastrointestinal Surgery 55 [facility], 4th Floor, [address] [place] [address] Janie Blackmon FNP 55 [facility] 460 [place] [phone] [email or web address] g documented as of this encounter Visit Diagnoses Not on filedocumented in this encounter Care Teams Target Developer Relationship Specialty Start Date End Date Frankie Padron MD [address] [place] [address] [place] [address] PCP - General Internal Medicine 07/16/19 Saniya Tan MD 55 [facility] 7E [place] [address] DIALLO@[facility] Primary Oncologist Medical Oncology 12/22/20 Domenic Goldsmith MD, PhD 55 [facility] 7B [place] [address] JIGAR@[facility] Surgical Oncology 01/11/21 Mary Sanon MD 55 [facility] 3 [place] [address] maria [email or web address] u Radiation Oncology 07/03/22 Davina Peraza, RN [address] [place] [address] [email or web address] Primary Infusion Nurse 11/20/23 documented as of this encounter Additional Source Comments The information contained in this document represents components of the legal health record. It is not the complete legal health record.[facility]
--- OUTSIDE RECORDS SUMMARY | 2025-09-16 20:49 | XMS_ITS ---
Author Organization [facility] Address [address] [place] [phone] Phone Care Team Providers Care Weaver Tire Cord Name Role Phone Frankie Padron MD Primary Care Provider Saniya Tan MD Unavailable Domenic Goldsmith MD, PhD Unavailable Mary Sanon MD Unavailable [phone] Davina Peraza RN Unavailable [email or web address] Active Problems Patient Care Coordination No te Formatting of this note migh t be different from the original. Pre-Release Checklist Guidance Document This is a guide to help you find the information needed to complete the pre- release checklist. If changes are made to the plan, please edit the dates below as needed. The staff radiologist needs to review this information each time the checklist is used. Date of Consent: 11/07/23 Treatment Initiation Note (If Applicable) 11/07/23 Off Label Note (If Applicable) N/A Date of C1D1 Height and Weight: 11/07/23 Most recent documentation of treatment plan (i.e. Dose Modifications): 07/20/24 12/27/19 PA was done on CMM for albina DILLON [facility] [employer] [place] [phone]. 12/28 Emailed Rossi Richardson: [facility] said the PA for Davina Monroy for [...] nurse will do monthly port flushes at [facility] for our patient starting [...] - Strict NPO - NGT LWS - format proofreader RENAL/: #CKD iso obstructive uropathy s/p stenting [...] pelvic exenteration on 04/21/20 with general surgery, Meat Scrubber surgery, and plastic surgery. 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, long term care social worker for 1 month - LR @ 75/hr [...] Treatment and Therapy Plans [facility]* Plan Start Date:12/27/2019 Linked Problems Malignant neoplasm [...]
--- OUTSIDE RECORDS SUMMARY | 2025-09-16 20:49 | XMS_ITS | Encounter Summary ---
Author Organization [facility] Address [address] [place] [phone] Phone Care Team Providers Care Ben Day Artist Name Role Phone Frankie Padron MD Primary Care Provider Saniya Tan MD Unavailable Domenic Goldsmith MD, PhD Unavailable [phone] Mary Sanon MD Unavailable [phone] Davina Peraza RN Unavailable [email or web address] Encounter Details Date Type Department Care Team (Late st Contact Info) Description 02/20/2024 Procedure Pass [facility] [address] [place] [address] Social History Tobacco Use Types Packs/Day Years [...] Contact Info) Description 02/15/2025 Procedure Pass MRI, [facility] - [address] [facility], [address] [place] [address] 08/12/[address], [facility] - [place] [address], [address] [place] [address] 08/12/[address], [facility] - [place] [address] [facility], [address] [place] [address] 08/12/2025 Procedure Pass MRI, [facility] - [address] [facility], [address] [place] [address] 10/14/2025 1:00 PM EST Office Visit [facility] [address]th [place] [address] Bettina Braden MD [address] [place] [address] [email or web address] 10/19/2025 3:00 PM EST Infusion [facility] at [address] [address] Hany Leach MD 02/06/2026 10:30 AM EDT Blood Draw [facility] [place] [address] [place] [address] Saniya Tan MD [address] [place] [address] [email or web address] 02/06/2026 11:[address], [facility] - [address] [facility], [address] [place] [address] Saniya Tan MD [address] [place] [address] [email or web address] 02/06/2026 12:30 PM EDT Appointment MRI, [facility] - [place] [address] [facility], [address] [place] [address] Saniya Tan MD [address] [facility] [address] [place] [address] [email or web address] 02/07/2026 9:30 AM EDT Appointment MRI, [facility] - [address], [address] [place] [address] Domenic Goldsmith MD, PhD [address] [address] [email or web address] 02/14/2026 11:00 AM EDT Office Visit [facility] [address] [facility], 7th [address], [address] [place] [address] Saniya Tan MD [address] [facility] [address] [place] [address] [email or web address] 02/14/2026 11:00 AM EDT Office Visit [facility] [address] [facility], 7th [address], [address] [place] [address] Roxana Ornelas MD 55 [facility] 3 [place] [address] [email or web address] 02/21/2026 10:00 AM EDT Telemedicine - audio only [facility] General & Gastrointestinal Surgery [address] [facility], 4th [address], [address] [place] [address] Janie Blackmon FNP 55 [facility] [address] [place] [address] [email or web address] documented as of this encounter Visit Diagnoses Not on filedocumented in this encounter Care Teams Ben Day Artist Relationship Specialty Start Date End Date Frankie Padron MD [address] [place] [address] [place] [address] PCP - General Internal Medicine 07/16/19 Saniya Tna MD [address] [facility] [address] [place] [address] [email or web address] Primary Oncologist Medical Oncology 12/22/20 Domenic Goldsmith MD, PhD 55 [facility] [address] [place] [address] [email or web address] Surgical Oncology 01/11/21 Mary Sanon MD 55 [facility] [address] [place] [address] [email or web address] [email or web address] Oncology 07/03/22 Davina Peraza RN 55 [place] [address] [email or web address] Primary Infusion Nurse 11/20/23 documented as of this encounter Additional Source Comments The information contained in this document represents components of the legal health record. It is not the complete legal health record.[facility]
--- OUTSIDE RECORDS SUMMARY | 2025-09-16 20:49 | XMS_ITS | Clinical Summary ---
Author Organization [facility] Address [address] [facility] [address] [place] [address] Phone Care Team Providers Care Stick Puller Name Role Phone Frankie Padron MD Primary Care Provider Saniya Tan MD Unavailable oDmenic Goldsmith MD, PhD Unavailable [phone] Mary Sanon MD Unavailable Davina Peraza RN Unavailable [email or web address] Allergies [...] edit the dates below as needed. The nurse staff industrial needs to review this information each time the checklist is used. Date of Consent: 11/07/23 Treatment Initiation Note (If Applicable) 11/07/23 Off Label Note (If Applicable) N/A Date of C1D1 Height and Weight: 11/07/23 Most recent documentation of treatment plan (i.e. Dose Modifications): 07/20/24 12/27/19 PA was done on [facility] [phone]. 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, senior living for 1 month - LR @ 75/hr [...] Type Department Care Team Description 08/19/2025 Telephone [facility] [address] [facility] 9 [place] [address] Ratna Cunha RN 08/12/2025 11:00 AM EDT Office Visit [facility] [address] [facility], 7th Floor, [address] [place] [address] Roxana Ornelas MD Malignant neoplasm of rectum (Primary Dx) 08/12/2025 11:00 AM EDT Office Visit [facility] [address] [facility], 7th Floor, [address] [place] [address] Saniya Tan MD Rectal cancer (Primary Dx) 08/06/2025 2:44 PM EDT - 08/07/2025 3:03 PM EDT Hospital Encounter [facility] Emergency Dept [address] [place] [address] Deng Castaneda MD Reisner, Andrew T, MD Discharge Disposition: Home or Self Care 08/06/2025 Telephone [facility] MEDICINE VIRTUAL DEPARTMENT [address] [place] [address] Maddison Diaz, HOP SEPARATOR 08/05/2025 10:28 AM EDT - 08/05/2025 11:59 PM EDT Hospital Encounter MRI, [facility] - [address], [address] [place] [address] Saniya Tan MD Discharge Disposition: Home or Self Care 08/05/2025 10:28 AM EDT - 08/05/2025 11:59 PM EDT Hospital Encounter CT, [facility] - [address], [address] [place] [address] Saniya Tan MD Discharge Disposition: Home or Self Care 07/28/2025 10:00 AM EDT Telemedicine [facility] [address] [place] [address] Building; [address] [place] [address] Emigdio Hays MD 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); OAB (overactive bladder) 06/24/2025 9:44 AM EDT Anesthesia Event [facility] PERIOPERATIVE DEPT [address] [place] [phone] Bubba Galaviz MD Nguyjed [facility] Yarelis Gómez RN 06/24/2025 9:07 AM EDT - 06/24/2025 10:29 AM EDT Surgery [facility] PERIOPERATIVE DEPT [address] [place] [phone] Emigdio Hays MD CYSTOSCOPY, stent exchange 06/24/2025 6:47 AM EDT - 06/24/2025 11:18 AM EDT Hospital Encounter [facility] PERIOPERATIVE DEPT [address] [place] [phone] Emigdio Hays MD Discharge Disposition: Home or Self Care 06/24/2025 Procedure Pass [facility] PERIOPERATIVE DEPT [address] [place] [address] 06/16/2025 9:15 AM EDT Pre-Admission Testing [facility] Pre-Procedure Evaluation Department Please See Appointment Details ROGER Raymundo [phone] Emigdio Hays MD 05/24/2025 Procedure Pass MRI, [facility] [place] [address] [facility], [address] [place] [address] 05/24/[address], [facility] [place] [address] [facility], [address] [place] [address] 05/24/[address], [facility] [place] [address] [facility], [address] [place] [address] from Last 3 Months Immunizations Immunization Administration [...] [facility] - [address] [facility], [address] [place] [address] 08/12/[address], [facility] - [address] [facility], [address] [place] [address] 08/12/[address], [facility] - [address] [facility], [address] [place] [address] 08/12/2025 Procedure Pass MRI, [facility] - [address] [facility], [address] [place] [address] 10/14/2025 1:00 PM EST Office Visit [facility] [address] 9[address] [place] [address] Bettina Braden MD [address] [place] [address] 4 [place] [address] [email or web address] 10/19/2025 3:00 PM EST Infusion [facility] at [address] [address] Hany Leach MD 02/06/2026 10:30 AM EDT Blood Draw [facility] Lab [address] [place] [address] Saniya Tan MD [address] [place] [address] [address] [place] [address] [email or web address] 02/06/2026 11:[address], [facility] - [address] [facility], [address] [place] [address] Saniya Tan MD [address] [facility] [address] [place] [address] [email or web address] 02/06/2026 12:30 PM EDT Appointment MRI, [facility] - [address], [address] [place] [address] Saniya Tan MD [address] [facility] [address] [place] [address] [email or web address] 02/07/2026 9:30 AM EDT Appointment MRI, [facility] - [address], [address] [place] [address] Domenic Goldsmith MD, PhD [address] [address] [email or web address] 02/14/2026 11:00 AM EDT Office Visit [facility] [address] [facility], 7th Floor, [address] [place] [address] Saniya Tan MD [address] [place] [address] [address] [place] [address] [email or web address] 02/14/2026 11:00 AM EDT Office Visit [facility] [address] [facility], 7th Floor, [address] [place] [address] Roxana Ornelas MD [address] [facility] 3 [place] [address] [email or web address] 02/21/2026 10:00 AM EDT Telemedicine - audio only [facility] General & Gastrointestinal Surgery [address] [facility], 4th Floor, [address] [place] [address] Janie Blackmon FNP [address] [address] [email or web address] Health Maintenance Due Date Last Done [...] on patient's age to complete this topic IPV VACCINES Aged Out No longer eligi ble based on patient's age to complete this topic MENINGOCOCCAL VACCINES (ACWY) Aged Out No longer eligible based on patient's age to complete this topic MENINGOCOCCAL VACCINES (B) Aged Out N o longer eligible based on patient's age to complete this topic Medical Devices Implanted Type Area Counseling Services Manager Device Identifier Shelf Expiration Date Model / Serial / Lot Mesh Synthetic 30cmxabdominal Non Absorbable Square Polypropylene Bx/3ea - [id number] Implanted:Qty: 1 on 04/21/2020 by Mark Palacios MD at [facility] STANDARD JNJ ETHICON / DIVISION OF J 03/02/2023 [id number] / / [id number] Catheter Drainage 10.2fr 25cm .038in Multipurpose Single Lumen Ultrathane Hydrophilic Coated Radiopaque Firm Mac Loc Loop Locking Lf - [id number] Implanted:Qty: 1 on 08/06/2022 by Kaz Joshi MD at [facility] Left: Chest [employer] 03/14/2025 [id number] / / [id number] Description:Left chest tube Port Dignity 6.6fr Infusion Mini Attachable Silicone Filled Suture Hole Chronoflex Catheter - [id number] Implanted:Qty: 1 on 10/30/2023 at [facility] [employer] 05/02/2028 [id number] / / [id number] Stent Ureteral [id number] Firm Tria - Sn/A Implanted:Qty: 1 on 06/24/2025 by Emigdio Hays MD at [facility] Right: Urethra [employer] 02/21/2028 [id number] 20 / N/A / [id number] Explanted Type Area Counseling Services Manager Device Identifier Shelf Expiration Date Model / Serial / Lot Stent Urological 7fr 24cm Double Pigtail Taper Tip Threaded Hydroplus Coated Percuflex Radiopaque Y - [id number] Implanted:Qty: 1 on 01/26/2021 by Kelly Pérez MD, MS at [facility] Explanted:2020 (Quantity not on file) Ureteral Stent Right: Ureter [employer] 09/21/2023 [id number] 720 / / [id number] Stent Urological 7fr 24cm Double Pigtail Taper Tip Threaded Hydroplus Coated Percuflex Radiopaque Y - [id number] Implanted:Qty: 1 on 07/06/2021 by Kelly Pérez MD, MS at [facility] Explanted:Qty: 1 on 10/10/2021 by Kelly Pérez MD, MS at [facility] Ureteral Stent Right: Ureter [employer] 04/26/2024 [id number] 720 / / [id number] Stent Urological 7fr 24cm Double Pigtail Taper Tip Threaded Hydroplus Coated Percuflex Radiopaque Y - [id number] Implanted:Qty: 1 on 10/10/2021 by Kelly Pérez MD, MS at [facility] Explanted:Qty: 1 on 02/25/2022 at [facility] Ureteral Stent Right: Ureter [employer] 08/22/2024 [id number] 720 / / [id number] Stent Urological 7fr 24cm Double Pigtail Taper Tip Threaded Hydroplus Coated Percuflex Radiopaque Y - [id number] Implanted:Qty: 1 on 02/25/2022 at [facility] Explanted:Qty: 1 on 06/24/2022 by Kelly Pérez MD, MS at [facility] Ureteral Stent Right: Ureter [employer] 10/21/2024 [id number] 720 / [id number] / [id number] Stent Urological 7fr 24cm Double Pigtail Taper Tip Threaded Hydroplus Coated Percuflex Radiopaque Y - [id number] Implanted:Qty: 1 on 06/24/2022 by Kelly Pérez MD, MS at [facility] Explanted:Qty: 1 on 02/17/2023 at [facility] Ureteral Stent Right: Ureter [employer] 01/02/2025 [id number] 720 / NA / [id number] Stent Urological 7fr 24cm Double Pigtail Taper Tip Threaded Hydroplus Coated Percuflex Radiopaque Y - [id number] Implanted:Qty: 1 on 10/09/2022 by Kelly Pérez MD, MS at [facility] Explanted:Qty: 1 on 02/17/2023 at [facility] Ureteral Stent Right: Ureter [employer] 06/05/2025 [id number] 720 / / [id number] Stent Urological 7fr 24cm Double Pigtail Taper Tip Threaded Hydroplus Coated Percuflex Radiopaque Y - [id number] Implanted:Qty: 1 on 05/28/2023 by Kelly Pérez MD, MS at [facility] Explanted:Qty: 1 on 09/17/2023 by Kelly Pérez MD, MS at [facility] Ureteral Stent Right: Ureter [employer] 10/13/2025 [id number] / / [id number] Stent Percuflex 7fr 26cm Urological Double Pigtail Taper Tip Threaded Hydroplus Coated Radiopaque - [id number] Implanted:Qty: 1 on 02/17/2023 by Kelly Pérez MD, MS at [facility] Explanted:Qty: 1 on 12/24/2024 at [facility] Ureteral Stent Right: Ureter [employer] 12/05/2025 [id number] 730 / / [id number] Stent Urological 7fr 24cm Double Pigtail Taper Tip Threaded Hydroplus Coated Percuflex Radiopaque Y - [id number] Implanted:Qty: 1 on 09/17/2023 by Kelly Pérez MD, MS at [facility] Explanted:Qty: 1 on 12/24/2024 at [facility] Ureteral Stent Right: Ureter [employer] 05/23/2026 175-272 / [id number] 720 / [id number] Stent Urological 7fr 24cm Double Pigtail Taper Tip Threaded Hydroplus Coated Percuflex Radiopaque Y - [id number] Implanted:Qty: 1 on 03/26/2024 by Emigdio Hays MD at [facility] Explanted:Qty: 1 on 12/24/2024 at [facility] Ureteral Stent Right: Ureter [employer] 04/22/2026 [id number] / / [id number] Stent Urological 7fr 24cm Double Pigtail Taper Tip Threaded Hydroplus Coated Percuflex Radiopaque Y - [id number] Implanted:Qty: 1 on 07/26/2024 by Emigdio Hays MD at [facility] Explanted:Qty: 1 on 12/24/2024 at [facility] Ureteral Stent Right: Ureter [employer] [id number] 01/07/2027 [id number] / / [id number] Port Dignity 6.6fr Infusion Mini Attachable Silicone Filled Suture Hole Chronoflex Catheter - [id number] Implanted:Qty: 1 on 12/24/2019 by Cami Maynard CNP at [facility] Explanted:Qty: 1 on 10/01/2021 Right: Chest Wall [employer] 07/03/2024 [id number] / / [id number] Stent Ureteral 5xmt31ct Firm Tria - [id number] Implanted:Qty: 1 on 12/24/2024 by Emigdio Hays MD at [facility] Explanted:Qty: 1 on 06/24/2025 by Emigdio Hays MD at [facility] Right: Ureter [employer] 07/26/2027 [id number] 220 / / [id number] Procedures Procedure Name Priority Date/Time Associated Diagnosis [...] NO CHARGE Routine 06/24/2025 10:40 AM EDT [place] CYSTOURETHROSCOPY 06/24/2025 9:49 AM EDT Ureteral obstruction, right ENDOSCOPY, COLON 02/12/2021 10:2 9 AM EDT from Last 3 Months or Most Recently Relevant to Health Maintenance Results * (ABNORMAL) Carcinoembryonic antigen (CEA) (08/12/2025 10:26 AM EDT) CEA 67.1(H) 0.0 - 3.3 ng/mL [facility] 08/12/2025 10:2 6 AM EDT 08/12/2025 10:37 AM EDT us Saniya Tan MD LAB BLOOD BKR ORDERABLES Final R esult [address] [address] * Type and Screen (ABO,Rh,Antibody Screen) (08/06/2025 3:44 PM EDT) Expiration Date of Sample 08/09/2025 11:59 PM [facility] ABO A 08/06/2025 4:37 PM EDT [facility] Rh Positive 08/06/2025 4:37 PM EDT [facility] Resulting Agency [facility] Antibody Screen Negative 08/06/2025 4:48 PM EDT [facility] Blood 08/06/2025 3:44 PM EDT 08/06/2025 3:47 PM EDT Analy Bey PA-C LAB BLOOD BANK TEST ORDERAB LES Final Result Performing Organization Address City/[facility]/ZIP Co de Phone Number [address] [address] * PT-INR (08/06/2025 3:36 PM EDT) PT 11.6 10.0 - 13.0 sec [facility] INR 1.0 0.9 - 1.1 [facility] Blood 08/06/2025 3:36 PM EDT 08/06/2025 3:56 PM EDT Analy Bey PA-C LAB BLOOD BKR ORDERABLES Fi nal Result [address] [address] * LFTs (hepatic panel) (08/06/2025 3:35 PM EDT) ALBUMIN 4.1 3.3 - 5.0 g/dL [facility] TOTAL BILIRUBIN 0.3 0.0 - 1.0 mg/dL [facility] DIRECT BILIRUBIN 0.1 0.0 - 0.3 mg/dL [facility] ALKALINE PHOSPHATASE 82 30 - 100 U/L [facility] AST 14 9 - 32 U/L [facility] ALT 12 7 - 33 U/L [facility] TOTAL PROTEIN 7.7 6.0 - 8.3 g/dL [facility] GLOBULIN 3.6 1.9 - 4.1 g/dL [facility] Blood 08/06/2025 3:35 PM EDT 08/06/2025 3:56 PM EDT us Analy Bey PA-C LAB BLOOD BKR ORDERABLES Fi nal Result [address] [address] * (ABNORMAL) CBC and differential (08/06/2025 3:35 PM EDT) WBC 6.99 4.00 - 11.00 K/uL [facility] RBC 4.34 4.00 - 5.20 M/uL [facility] HGB 11.5(L) 12.0 - 16.0 g/dL [facility] HCT 36.9 36.0 - 46.0 % [facility] PLT 336 150 - 450 K/uL [facility] MCV 85.0 80.0 - 100.0 fL [facility] MCH 26.5(L) 27.0 - 31.0 pg [facility] MCHC 31.2(L) 32.0 - 36.0 g/dL [facility] RDW 15.1(H) 11.5 - 14.5 % [facility] MPV 9.0 8.4 - 12.0 fL [facility] NRBC 0.00 0.00 /100 WBCs [facility] ABSOLUTE NRBC 0.00 0.00 K/uL [facility] DIFF METHOD Auto [facility] NEUTS 72.3 48.0 - 76.0 % [facility] LYMPHS 17.6(L) 18.0 - 41.0 % [facility] MONOS 7.7 4.0 - 11.0 % [facility] EOS 1.7 0.0 - 5.0 % [facility] BASOS 0.3 0.0 - 1.5 % [facility] % IMMATURE GRANS 0.4 0.0 - 0.9 % [facility] ABSOLUTE NEUTS 5.05 1.92 - 7.60 K/uL [facility] ABSOLUTE LYMPHS 1.23 0.72 - 4.10 K/uL [facility] ABSOLUTE MONOS 0.54 0.16 - 1.10 K/uL [facility] ABSOLUTE EOS 0.12 0.00 - 0.50 K/uL [facility] ABSOLUTE BASOS 0.02 0.00 - 0.15 K/uL [facility] ABS IMMATURE GRANS 0.03 0.00 - 0.09 K/uL [facility] Blood 08/06/2025 3:35 PM EDT 08/06/2025 3:57 PM EDT Analy Davina Sotero STEWART-C LAB BLOOD BKR ORDERABLES Fi nal Result Performing Organization Address City/[facility]/ZIP Co de Phone Number [address] [address] * (ABNORMAL) Magnesium (08/06/2025 3:35 PM EDT) MAGNESIUM 1.4(L) 1.7 - 2.4 mg/dL [facility] Blood 08/06/2025 3:35 PM EDT 08/06/2025 3:56 PM EDT AnalyBlueStacks PA-C LAB BLOOD BKR ORDERABLES Fi nal Result [address] [address] * Lipase (08/06/2025 3:35 PM EDT) LIPASE 43 13 - 60 U/L [facility] Blood 08/06/2025 3:35 PM EDT 08/06/2025 3:56 PM EDT Analy Ghosh Sotero HERRERA LAB BLOOD BKR ORDERABLES Fi nal Result Performing Organization Address [facility] Co de Phone Number [address] [address] * (ABNORMAL) Basic metabolic panel (08/06/2025 3:35 PM EDT) SODIUM 137 135 - 145 mmol/L [facility] POTASSIUM 3.9 3.4 - 5.0 mmol/L [facility] CHLORIDE 102 98 - 108 mmol/L [facility] CO2 19(L) 23 - 32 mmol/L [facility] BUN 19 8 - 25 mg/dL [facility] CREATININE 1.14(H) 0.50 - 1.00 mg/dL [facility] GLUCOSE 116(H) 70 - 110 mg/dL [facility] CALCIUM 9.6 8.5 - 10.5 mg/dL [facility] EGFR 52(L) >59 mL/min/1. 73m2 [facility] Comment:Estimated glomerular filtration rate calculated using the CKD-EPI refit equation. ANION GAP 16 3 - 17 mmol/L [facility] Blood 08/06/2025 3:35 PM EDT 08/06/2025 3:56 PM EDT Analy Ghosh Sotero HERRERA LAB BLOOD BKR ORDERABLES Fi nal Result Performing Organization Address [facility] Co de Phone Number [address] [address] * CT CHEST WITH CONTRAST (08/05/2025 12:40 [...] clinician's provided indication for this examination in [facility]: *Rectal cancer, monitor, stage II/III/IV TECHNIQUE: Multidetector [...] progressively increased short axis diameter, 11 mm [id number], 13 mm on , and now 15 mm. * Unchanged lingular ablation bed, 13 x 7 mm (6:194) back [id number]. * Unchanged posterior left apical subpleural opacity, 5 mm thick(6:49). * Unchanged 6 mm left lower lobe subpleural nodule (6:202) since at [id number]. * No new nodules. Pleura: No pleural [...] slowly increased right upper lobe treatment bed. Saniya Tan MD IMG CT CHEST Final Result * CT ABDOMEN/PELVIS [...] with MD Emily on 08/06/2025 10:15 AM. us Saniya Tan MD IMG CT ABD/PELVIS Final Result * MRI PELVIS (RECTAL) WITH AND WITHOUT CONTRAST (08/05/2025 11:44 AM EDT) MGB IMG JTAC COMMENT SBO [facility] Anatomical Region Laterality Modality Pelvis Magnetic Resonan [...] Epic: *Rectal cancer, monitor, stage II/III/IV TECHNIQUE: Multiplanar [...] AM EDT) 06/24/2025 1:58 PM EDT Narrative [facility] - 06/24/2025 1:58 PM EDT Dose (mGy): 0.9411 Dose Area Product (DAP): 0.1774 Fluoro time (min): 00:07.3 Number of Spot Films: 7 Radimetrics Dose Report: CTDIvol: 0 mGy. DLP: 0 mGy-cm. Procedure Note Forensic Medical Examiner, Dictation - 06/24/2025 Dose (mGy): 0.9411 Dose Area Product (DAP): 0.1774 Fluoro time (min): 00:07.3 Number of Spot Films: 7 Radimetrics Dose Report: CTDIvol: 0 mGy. DLP: 0 mGy-cm. J Keith Hays MD IMG [place] EXAMS Final Re sult [address] [address] * ENDOSCOPY, COLON (02/12/2021 10:29 AM EDT) 02/12/2021 10:2 9 AM EDT Narrative Transcriptions Bettina Braden MD, [place] - 02/12/2021 10:29 AM EDT Gastrointestinal Endoscopy Unit Patient Name: Davina Monroy Exam Date: 02/12/2021 10:29 AM Date of : 1955 Admit Type: Outpatient Age: 66 Room: [facility] PROC ROOM 12 Gender: Female Note Status: Finalized [...] the procedure was stable. Bettina Braden MD, [id number] 02/12/2021 11:10:25 AM Number of Addenda: 0 Note Initiated On: 02/12/2021 10:29 AM Frankie Padron MD GI PROCEDURE ORDERABLES Final Result from Last 3 Months or Most Recently Relevant to Health Maintenance Insurance MEDICARE PART A & B [employer] MEDEX SUPPLEMENT MEDICARE PART A & B [employer] MEDEX SUPPLEMENT MEDICARE PART A & B [employer] SUPPLEMENT MEDICARE PART A & B [employer] MEDEX SUPPLEMENT MEDICARE PART A & B [employer] MEDEX SUPPLEMENT MEDICARE PART A & B [employer] MEDEX SUPPLEMENT MEDICARE PART A & B [employer] MEDEX SUPPLEMENT MEDICARE PART A & B [employer] MEDEX SUPPLEMENT MEDICARE PART A & B [employer] MEDEX SUPPLEMENT Advance Directives For more information, please contact: [phone] (9AM - 5PM Tanna/[facility], Friday-Friday) Documents on File Type Date Recorded Patient Credit Collector Expl anation Healthcare Proxy 12/31/2019 * Full [...] 6:33 PM 08/06/2022 5:34 PM Care Teams Stick Puller Relationship Specialty Start Date End Date Frankie Padron MD [address] [place] [address] [place] [address] PCP - General Internal Medicine 07/16/19 Saniya Tan MD [address] [facility] [address] [place] [address] [email or web address] Primary Oncologist Medical Oncology 12/22/20 Domenic Goldsmith MD, PhD [address] [facility] [address] [place] [address] [email or web address] Surgical Oncology 01/11/21 Mary Sanon MD [address] [facility] 3 [place] [address] [email or web address] [email or web address] Oncology 07/03/22 Davina Peraza RN [address] [place] [address] [email or web address] Primary Infusion Nurse 11/20/23 Additional Source Comments The information contained in this document represents components of the legal health record. It is not the complete legal health record.[facility]
--- OUTSIDE RECORDS SUMMARY | 2025-09-16 20:49 | XMS_ITS | Encounter Summary ---
Author Organization [facility] Address [address] [place] [address] Phone Care Team Providers Care Appliance Repair Technician Name Role Phone Frankie Padron MD Primary Care Provider Saniya Tan MD Unavailable Domenic Goldsmith MD, PhD Unavailable [phone] Robert Lomax MD Unavailable [phone] Mary Sanon MD Unavailable Marcy Garvey RN Unavailable [email or web address] Davina Peraza RN Unavailable [email or web address] Davina Peraza RN Unavailable [email or web address] Encounter Details Date Type Department Care Team (Late st Contact Info) Description 05/23/2021 Procedure Pass [facility], Ct Scan - [address] [address] Social History Tobacco Use Types Packs/Day Years [...] Contact Info) Description 02/15/2025 Procedure Pass MRI, [facility] - [place] [address] [facility], [address] [place] [address] 08/12/[address], [facility] General Imaging - [address] [facility], [address] [place] [address] 08/12/[address], [facility] - [place] [address] [facility], [address] [place] [address] 08/12/2025 Procedure Pass MRI, [facility] General Imaging - [address] [facility], [address] [place] [address] 10/14/2025 1:00 PM EST Office Visit [facility] [address] [facility] 9th [place] [address] Bettina Braden MD [address] [place] [address] MARTÍN@[facility] 10/19/2025 3:00 PM EST Infusion [facility] at [address] [address] Hany Leach MD 02/06/2026 10:30 AM EDT Blood Draw [facility] Lab [address] [address] Saniya Tan MD [address] [place] [address] DIALLO@[facility] 02/06/2026 11:[address], [facility] Imaging - [address] [facility], [address] [place] [address] Saniya Tan MD [address] [place] [address] DIALLO@[facility] 02/06/2026 12:30 PM EDT Appointment MRI, [facility] Imaging - [place] 52 [facility], [address] [place] [address] Saniya Tan MD 55 [facility] 7E [place] [address] DIALLO@[facility] 02/07/2026 9:30 AM EDT Appointment MRI, [facility] Imaging - [address], [address] [place] [address] Domenic Goldsmith MD, PhD 55 [facility] 7B [place] [address] JIGAR@[facility] 02/14/2026 11:00 AM EDT Office Visit [facility] 32 [facility], 7th Floor, [address] [place] [address] Saniya Tan MD [address] [place] [address] 7[address] [place] [address] DIALLO@[facility] 02/14/2026 11:00 AM EDT Office Visit [facility] [address] [facility], 7th Floor, [address] [place] [address] Roxana Ornelas MD [address] [place] [address] MAY 3 [place] [address] CHIN@[facility] 02/21/2026 10:00 AM EDT Telemedicine - audio only [facility] General & Gastrointestinal Surgery [address] [facility], 4th Floor, [address] [place] [address] Janie Blackmon FNP 55 [facility] 460 [place] [address] [email or web address] g documented as of this encounter Visit Diagnoses Not on filedocumented in this encounter Care Teams Appliance Repair Technician Relationship Specialty Start Date End Date Frankie Padron MD [address] [place] [address] [place] [address] PCP - General Internal Medicine 07/16/19 Saniya Tan MD 55 [facility] YA [address] [place] DIALLO@[email or web address] Primary Oncologist Medical Oncology 12/22/20 Domenic Goldsmith MD, PhD 55 [email or web address] [address] [place] [place] JIGAR@[email or web address] Surgical Oncology 01/11/21 Robert Lomax MD [facility] [address] [place] [address] MARCELA@[facility] Cardiothoracic Surgery 07/03/22 08/18/23 Mary Sanon MD 55 [facility] 3 [place] [address] [email or web address] [email or web address] Radiation Oncology 07/03/22 Marcy Garvey RN 55 [facility] 3 [place] [address] [email or web address] Primary Infusion Nurse 10/23/23 11/19/23 Davina Peraza RN Associate Infusion Nurse 10/29/23 11/19/23 Davina Peraza RN 55 [place] [address] [email or web address] Primary Infusion Nurse 11/20/23 documented as of this encounter Additional Source Comments The information contained in this document represents components of the legal health record. It is not the complete legal health record.[facility]
--- OUTSIDE RECORDS SUMMARY | 2025-09-16 20:49 | XMS_ITS | Encounter Summary ---
Author Organization [facility] Address [address] [place] [address] Phone Care Team Providers Care Diamond Sawer Name Role Phone Frankie Padron MD Primary Care Provider Saniya Tan MD Unavailable Domenic Goldsmith MD, PhD Unavailable [phone] Mary Sanon MD Unavailable [phone] Davina Peraza RN Unavailable [email or web address] Encounter Details Date Type Department Care Team (Late st Contact Info) Description 03/09/2025 Procedure Pass MRI, [facility] Imaging - [address], [address] [place] [address] Social History Tobacco Use Types [...] [facility] Imaging - [place] [address] [facility], [address] [place] [address] 08/12/[address], [facility] Imaging - [place] [address] [facility], [address] [place] [address] 08/12/[address], [facility] Imaging - [place] [address] [facility], [address] [place] [address] 08/12/2025 Procedure Pass MRI, [facility] Imaging - [place] [address] [facility], [address] [place] [address] 10/14/2025 1:00 PM EST Office Visit [facility] 165 [facility] 9th [place] [address] Bettina Braden MD [address] [place] [address] MARTÍN@[email or web address] 10/19/2025 3:00 PM EST Infusion [facility] at [place] 30 [place] [address] Hany Leach MD 02/06/2026 10:30 AM EDT Blood Draw [facility] Lab [address] [address] Saniya Tan MD [address] [address] DIALLO@[email or web address] 02/06/2026 11:[address], [facility] Imaging - [address], [address] [place] [address] Saniya Tan MD [address] [place] [address] DIALLO@[facility] 02/06/2026 12:30 PM EDT Appointment MRI, [facility] - [address], [address] [place] [address] Saniya Tan MD [address] [place] [address] DIALLO@[facility] 02/07/2026 9:30 AM EDT Appointment MRI, [facility] - [address], [address] [place] [address] Domenic Goldsmith MD, PhD [address] [address] MQJUNIOR@[facility] 02/14/2026 11:00 AM EDT Office Visit [facility] 32 [facility], 7th Floor, [address] [place] [address] Saniya Tan MD [address] [address] DIALLO@[email or web address] 02/14/2026 11:00 AM EDT Office Visit [facility] 32 [facility], 7th Floor, [address] [place] [address] Roxana Ornelas MD 55 [facility] 3 [place] [address] CHIN@[facility] 02/21/2026 10:00 AM EDT Telemedicine - audio only [facility] General & Gastrointestinal Surgery 55 [facility], 4th Floor, [address] [place] [address] Janie Blackmon FNP 55 [facility] 460 [place] [phone] [email or web address] g documented as of this encounter Visit Diagnoses Not on filedocumented in this encounter Care Teams Diamond Sawer Relationship Specialty Start Date End Date Frankie Padron MD [address] [place] [address] [place] [address] PCP - General Internal Medicine 07/16/19 Saniya Tan MD 55 [facility] 7E [place] [address] DIALLO@[email or web address] Primary Oncologist Medical Oncology 12/22/20 Domenic Goldsmith MD, PhD 55 [facility] 7B [place] [address] JIGAR@[email or web address] Surgical Oncology 01/11/21 Mary Sanon MD 55 [facility] 3 [place] [address] [email or web address] u Radiation Oncology 07/03/22 Davina Peraza, RN [address] [place] [address] [email or web address] Primary Infusion Nurse 11/20/23 documented as of this encounter Additional Source Comments The information contained in this document represents components of the legal health record. It is not the complete legal health record.[facility]
--- OUTSIDE RECORDS SUMMARY | 2025-09-16 20:49 | XMS_ITS | Encounter Summary ---
Author Organization [facility] Address [address] [place] [address] Phone Care Team Providers Care Superintendent Power Name Role Phone Frankie Padron MD Primary Care Provider Saniya Tan MD Unavailable Domenic Goldsmith MD, PhD Unavailable [phone] Mary Sanon MD Unavailable Davina Peraza RN Unavailable [email or web address] Encounter Details Date Type Department Care Team (Late st Contact Info) Description 03/09/[address], [facility] Imaging - [address], [address] [place] [address] Social History Tobacco Use Types [...] Pass MRI, [facility] Imaging - [place] [address] [facility], [address] [place] [address] 08/12/[address], [facility] Imaging - [place] [address] [facility], [address] [place] [address] 08/12/[address], [facility] Imaging - [place] [address] [facility], [address] [place] [address] 08/12/2025 Procedure Pass MRI, [facility] Imaging - [place] 52 [facility], [address] [place] [address] 10/14/2025 1:00 PM EST Office Visit [facility] 165 [facility] 9th [place] [address] Bettina Braden MD [address] [place] [address] MARTÍN@[email or web address] 10/19/2025 3:00 PM EST Infusion [facility] at [place] 30 [place] [address] Hany Leach MD 02/06/2026 10:30 AM EDT Blood Draw [facility] Lab [address] [address] Saniya Tan MD [address] [address] DIALLO@[facility] 02/06/2026 11:[address], [facility] Imaging - [address], [address] [place] [address] Saniya Tan MD [address] [place] [address] DIALLO@[facility] 02/06/2026 12:30 PM EDT Appointment MRI, [facility] - [address], [address] [place] [address] Saniya Tan MD [address] [place] [address] DIALLO@[facility] 02/07/2026 9:30 AM EDT Appointment MRI, [facility] - [address], [address] [place] [address] Domenic Goldsmith MD, PhD [address] [address] MQJUNIOR@[facility] 02/14/2026 11:00 AM EDT Office Visit [facility] 32 [facility], 7th Floor, [address] [place] [address] Saniya Tan MD [address] [address] DIALLO@[email or web address] 02/14/2026 11:00 AM EDT Office Visit [facility] 32 [facility], 7th Floor, [address] [place] [address] Roxana Ornelas MD 55 [facility] 3 [place] [address] CHIN@[facility] 02/21/2026 10:00 AM EDT Telemedicine - audio only [facility] General & Gastrointestinal Surgery 55 [facility], 4th Floor, [address] [place] [address] Janie Blackmon FNP 55 [facility] [place] [facility] 460 [place] [address] [email or web address] g documented as of this encounter Visit Diagnoses Not on filedocumented in this encounter Care Teams Superintendent Power Relationship Specialty Start Date End Date Frankie Padron MD [address] [place] [address] [place] [address] PCP - General Internal Medicine 07/16/19 Saniya Tan MD 55 [facility] 7E [place] [address] DIALLO@[email or web address] Primary Oncologist Medical Oncology 12/22/20 Domenic Goldsmith MD, PhD 55 [facility] 7B [place] [address] JIGAR@[email or web address] Surgical Oncology 01/11/21 Mary Sanon MD 55 [facility] 3 [place] [address] [email or web address] [email or web address] u Radiation Oncology 07/03/22 Davina Peraza, RN [address] [place] [address] [email or web address] Primary Infusion Nurse 11/20/23 documented as of this encounter Additional Source Comments The information contained in this document represents components of the legal health record. It is not the complete legal health record.[facility]
--- OUTSIDE RECORDS SUMMARY | 2025-09-16 20:49 | XMS_ITS | Encounter Summary ---
Author Organization [facility] Address [address] [facility] [address] [place] [address] Phone Care Team Providers Care Client Experience Specialist Name Role Phone Frankie Padron MD Primary Care Provider Saniya Tan MD Unavailable Domenic Goldsmith MD, PhD Unavailable [phone] Mary Sanon MD Unavailable [phone] Davina Peraza RN Unavailable [email or web address] Encounter Details Date Type Department Care Team (Late st Contact Info) Description 01/15/2024 Procedure Pass [facility] PET[facility] Imaging, [place] [address] [facility], 2nd [place] [address] Social History Tobacco Use Types Packs/Day Years [...] [facility] General [facility] - [place] [facility], [address] [place] [address] 08/12/[address], [facility] - [place] [address] [facility] [address] [facility], [address] [place] [address] 08/12/[address], [facility] General [facility] - [place] [address] [facility], [address] [place] [address] 08/12/2025 Procedure Pass MRI, [facility] Imaging - [address] [facility], [address] [place] [address] 10/14/2025 1:00 PM EST Office Visit [facility] 165 [facility] 9th [place] [address] Bettina Braden MD 55 [facility] 4 [place] [address] MARTÍN@[facility] 10/19/2025 3:00 PM EST Infusion [facility] Center at [address] [address] Hany, Hany, 02/06/2026 10:30 AM EDT Blood Draw [facility] Lab [place] [address] [place] [address] Saniya Tan MD 55 [facility] 7E [place] [address] DIALLO@[facility] 02/06/2026 11:[address], [facility] Imaging - [address] [facility], [address] [place] [address] Saniya Tan MD 55 [facility] 7E [place] [address] DIALLO@[facility] 02/06/2026 12:30 PM EDT Appointment MRI, [facility] General Imaging - [address], [address] [place] [address] Saniya Tan MD 55 [facility] 7E [place] [address] DIALLO@[facility] 02/07/2026 9:30 AM EDT Appointment MRI, [facility] General Imaging - [address], [address] [place] [address] Domenic Goldsmith MD, PhD 55 [facility] 7B [place] [address] MQJUNIOR@[facility] 02/14/2026 11:00 AM EDT Office Visit [facility] 32 [facility], 7th Floor, [address] [place] [address] Saniya Tan MD 55 [facility] 7E [place] [address] DIALLO@[facility] 02/14/2026 11:00 AM EDT Office Visit [facility] 32 [facility], 7th Floor, [address] [place] [address] Roxana Ornelas MD 55 [facility] 3 [place] [address] CHIN@[facility] 02/21/2026 10:00 AM EDT Telemedicine - audio only [facility] General & Gastrointestinal Surgery 55 [facility], 4th Floor, [address] [place] [address] Janie Blackmon FNP 55 [place] [facility] 460 [place] [address] [email or web address] g documented as of this encounter Visit Diagnoses Not on filedocumented in this encounter Care Teams Client Experience Specialist Relationship Specialty Start Date End Date Frankie Padron MD [address] [place] [address] [place] [address] PCP - General Internal Medicine 07/16/19 Saniya Tan MD 55 [facility] YA 7E [place] [address] DIALLO@[email or web address] Primary Oncologist Medical Oncology 12/22/20 Domenic Goldsmith MD, PhD 55 [facility] 7B [place] [address] JIGAR@[email or web address] Surgical Oncology 01/11/21 Mary Sanon MD 55 [facility] MAY 3 [place] [address] maria [email or web address] u Radiation Oncology 07/03/22 Davina Peraza RN 55 [place] [address] [email or web address] Primary Infusion Nurse 11/20/23 documented as of this encounter Additional Source Comments The information contained in this document represents components of the legal health record. It is not the complete legal health record.[facility]
--- OUTSIDE RECORDS SUMMARY | 2025-09-16 20:49 | XMS_ITS | Encounter Summary ---
Author Organization [facility] Address [address] [place] [address] Phone Care Team Providers Care King Maker Name Role Phone Frankie Padron MD Primary Care Provider Saniya Tan MD Unavailable Domenic Goldsmith MD, PhD Unavailable [phone] Mary Sanon MD Unavailable [phone] Davina Peraza RN Unavailable [email or web address] Encounter Details Date Type Department Care Team (Late st Contact Info) Description 02/23/2024 Procedure Pass [facility] PERIOPERATIVE DEPT 55 [place] [address] Social History Tobacco Use Types Packs/Day Years [...] Info) Description 02/15/2025 Procedure Pass MRI, [facility] Imaging - [address] [facility], [address] [place] [address] 08/12/[address], [facility] General Imaging - [place] [facility], [address] [place] [address] 08/12/[address], [facility] General Imaging - [place] [address] [facility], [address] [place] [address] 08/12/2025 Procedure Pass MRI, [facility] Imaging - [address] [facility], [address] [place] [address] 10/14/2025 1:00 PM EST Office Visit [facility] [address] 9th [place] [address] Bettina Braden MD [address] [place] [address] MARTÍN@[facility] 10/19/2025 3:00 PM EST Infusion [facility] Cancer Center at [address] [address] Hany Leach MD 02/06/2026 10:30 AM EDT Blood Draw [facility] Lab [place] 52 [place] [address] Saniya Tan MD [address] [place] [address] DIALLO@[facility] 02/06/2026 11:[address], [facility] Imaging - [address] [facility], [address] [place] [address] Saniya Tan MD [address] [place] [address] DIALLO@[facility] 02/06/2026 12:30 PM EDT Appointment MRI, [facility] Imaging - [place] 52 [facility], [address] [place] [address] Saniya Tan MD 55 [facility] 7E [place] [address] DIALLO@[facility] 02/07/2026 9:30 AM EDT Appointment MRI, [facility] Imaging - [address], [address] [place] [address] Domenic Goldsmith MD, PhD [address] [address] MQJUNIOR@[facility] 02/14/2026 11:00 AM EDT Office Visit [facility] 32 [facility], 7th Floor, [address] [place] [address] Saniya Tan MD 55 [facility] 7E [place] [address] DIALLO@[facility] 02/14/2026 11:00 AM EDT Office Visit [facility] 32 [facility], 7th Floor, [address] [place] [address] Roxana Ornelas MD 55 [facility] 3 [place] [address] CHIN@[facility] 02/21/2026 10:00 AM EDT Telemedicine - audio only [facility] General & Gastrointestinal Surgery [address] [facility], 4th Floor, [address] [place] [address] Janie Blackmon FNP 55 [facility] 460 [place] [address] marismary [email or web address] g documented as of this encounter Visit Diagnoses Not on filedocumented in this encounter Care Teams King Maker Relationship Specialty Start Date End Date Frankie Padron MD [address] [place] [address] [place] [address] PCP - General Internal Medicine 07/16/19 Saniya Tan MD 55 [facility] 7E [place] [address] DIALLO@[facility] Primary Oncologist Medical Oncology 12/22/20 Domenic Goldsmith MD, PhD 55 [facility] 7B [place] [address] JIGAR@[facility] Surgical Oncology 01/11/21 Mary Sanon MD 55 [facility] MAY 3 [place] [address] maria [email or web address] u Radiation Oncology 07/03/22 Davina Peraza RN 55 [place] [address] [email or web address] Primary Infusion Nurse 11/20/23 documented as of this encounter Additional Source Comments The information contained in this document represents components of the legal health record. It is not the complete legal health record.[facility]
--- OUTSIDE RECORDS SUMMARY | 2025-09-16 20:49 | XMS_ITS | Encounter Summary ---
Author Organization [facility] Address [address] [facility] [address] [place] [address] Phone Care Team Providers Care Grease Refiner Operator Name Role Phone Frankie Padron MD Primary Care Provider Saniya Tan MD Unavailable Domenic Goldsmith MD, PhD Unavailable [phone] Mary Sanon MD Unavailable [phone] Davina Peraza RN Unavailable [email or web address] Encounter Details Date Type Department Care Team (Late st Contact Info) Description 01/15/2024 Procedure Pass [facility] PETCT Imaging, [place] [address] [facility], 2nd [place] [address] Social History Tobacco Use Types Packs/Day Years [...] Contact Info) Description 02/15/2025 Procedure Pass MRI, [facility] - [place] [address] [facility], [address] [place] [address] 08/12/[address], [facility] - [place] [address] [facility], [address] [place] [address] 08/12/[address], [facility] - [place] 52 [facility], [address] [place] [address] 08/12/2025 Procedure Pass MRI, [facility] Imaging - [address] [facility], [address] [place] [address] 10/14/2025 1:00 PM EST Office Visit [facility] [address] [facility] 9th [place] [address] Bettina Braden MD 55 [facility] 4 [place] [address] MARTÍN@[facility] 10/19/2025 3:00 PM EST Infusion [facility] at [address] [address] Hany, Hany, 02/06/2026 10:30 AM EDT Blood Draw [facility] Lab [place] [address] [place] [address] Saniya Tan MD 55 [facility] 7E [place] [address] DIALLO@[facility] 02/06/2026 11:[address], [facility] Imaging - [address] [facility], [address] [place] [address] Saniya Tan MD 55 [facility] 7E [place] [address] DIALLO@[facility] 02/06/2026 12:30 PM EDT Appointment MRI, [facility] Imaging - [address], [address] [place] [address] Saniya Tan MD 55 [facility] 7E [place] [address] DIALLO@[facility] 02/07/2026 9:30 AM EDT Appointment MRI, [facility] General Imaging - [address], [address] [place] [address] Domenic Goldsmith MD, PhD 55 [facility] 7B [place] [address] [email or web address] 02/14/2026 11:00 AM EDT Office Visit [facility] [address] [facility], 7th Floor, [address] [place] [address] Saniya Tan MD 55 [facility] 7E [place] [address] DIALLO@[facility] 02/14/2026 11:00 AM EDT Office Visit [facility] [address] [facility], 7th Floor, [address] [place] [address] Roxana Ornelas MD 55 [facility] 3 [place] [address] CHIN@[email or web address] 02/21/2026 10:00 AM EDT Telemedicine - audio only [facility] General & Gastrointestinal Surgery 55 [facility], 4th Floor, [address] [place] [address] Janie Blackmon FNP 55 [facility] 460 [place] [address] [email or web address] g documented as of this encounter Visit Diagnoses Not on filedocumented in this encounter Care Teams Grease Refiner Operator Relationship Specialty Start Date End Date Frankie Padron MD [address] [place] [address] [place] [address] PCP - General Internal Medicine 07/16/19 Saniya Tan MD 55 [facility] YA 7E [place] [address] [email or web address] Primary Oncologist Medical Oncology 12/22/20 Domenic Goldsmith MD, PhD 55 [facility] 7B [place] [address] [email or web address] Surgical Oncology 01/11/21 Mary Sanon MD 55 [facility] MAY 3 [place] [address] [email or web address] Radiation Oncology 07/03/22 Davina Peraza RN 55 [place] [address] [email or web address] Primary Infusion Nurse 11/20/23 documented as of this encounter Additional Source Comments The information contained in this document represents components of the legal health record. It is not the complete legal health record.[facility]
--- OUTSIDE RECORDS SUMMARY | 2025-09-16 20:50 | XMS_ITS | Encounter Summary ---
Author Organization [facility] Address [address] [facility] [address] [place] [address] Phone Care Team Providers Care Machine Deburrer Name Role Phone Frankie Padron MD Primary Care Provider Saniya Tan MD Unavailable Domenic Godlsmith MD, PhD Unavailable [phone] Mary Sanon MD Unavailable [phone] Davina Peraza RN Unavailable [email or web address] Encounter Details Date Type Department Care Team (Late st Contact Info) Description 03/26/2024 Procedure Pass [facility] PERIOPERATIVE DEPT 55 [place] [address] Social History Tobacco Use Types Packs/Day Years [...] Pass MRI, [facility] General Imaging - [address] [facility], [address] [place] [address] 08/12/[address], [facility] General Imaging - [place] [address] [facility], [address] [place] [address] 08/12/[address], [facility] General Imaging - [place] [address] [facility], [address] [place] [address] 08/12/2025 Procedure Pass MRI, [facility] - [address] [facility], [address] [place] [address] 10/14/2025 1:00 PM EST Office Visit [facility] [address] 9th [place] [address] Bettina Braden MD [address] [place] [address] [email or web address]@[email or web address] 10/19/2025 3:00 PM EST Infusion [facility] at [address] [address] Hany Leach MD 02/06/2026 10:30 AM EDT Blood Draw [facility] Lab [place] [address] [facility] [place] [address] Saniya Tan MD [address] [place] [address] [email or web address]@[email or web address] 02/06/2026 11:[address], [facility] General Imaging - [address] [facility], [address] [place] [address] Saniya Tan MD [address] [place] [address] [email or web address]@[email or web address] 02/06/2026 12:30 PM EDT Appointment MRI, [facility] - [place] 52 [facility], [address] [place] [address] Saniya Tan MD [address] [address] [email or web address] 02/07/2026 9:30 AM EDT Appointment MRI, [facility] Imaging - [address], [address] [place] [address] Domenic Goldsmith MD, PhD [address] [address] JIGAR@[facility] 02/14/2026 11:00 AM EDT Office Visit [facility] 32 [facility], 7th Floor, [address] [place] [address] Saniya Tan MD [address] [address] [email or web address]@[email or web address] 02/14/2026 11:00 AM EDT Office Visit [facility] 32 [facility], 7th Floor, [address] [place] [address] Roxana Ornelas MD 55 [facility] 3 [place] [address] CHIN@[email or web address] 02/21/2026 10:00 AM EDT Telemedicine - audio only [facility] General & Gastrointestinal Surgery 55 [facility], 4th Floor, [address] [place] [address] Janie Blackmon FNP 55 [facility] 460 [place] [address] [email or web address] g documented as of this encounter Visit Diagnoses Not on filedocumented in this encounter Care Teams Machine Deburrer Relationship Specialty Start Date End Date Frankie Padron MD [address] [place] [address] [place] [address] PCP - General Internal Medicine 07/16/19 Saniya Tan MD [address] [facility] [address] [place] [address] [email or web address] Primary Oncologist Medical Oncology 12/22/20 Domenic Goldsmith MD, PhD [facility] 7B [place] [address] [email or web address] Surgical Oncology 01/11/21 Mary Sanon MD 55 [facility] MAY 3 [place] [address] [email or web address] u Radiation Oncology 07/03/22 Davina Peraza RN 55 [place] [address] [email or web address] Primary Infusion Nurse 11/20/23 documented as of this encounter Additional Source Comments The information contained in this document represents components of the legal health record. It is not the complete legal health record.[facility]
--- OUTSIDE RECORDS SUMMARY | 2025-09-16 20:50 | XMS_ITS | Encounter Summary ---
Author Organization [facility] Address [address] [facility] [address] [place] [address] Phone Care Team Providers Care Electroplater Helper Name Role Phone Frankie Padron MD Primary Care Provider Saniya Tan MD Unavailable Domenic Goldsmith MD, PhD Unavailable [phone] Robert Lomax MD Unavailable [phone] Mary Sanon MD Unavailable Marcy Garvey RN Unavailable [email or web address] Davina Peraza RN Unavailable [email or web address] Davina Peraza RN Unavailable [email or web address] Encounter Details Date Type Department Care Team (Late st Contact Info) Description 07/15/2023 Procedure Pass MRI, [facility] - [address], [address] [place] [address] Social History Tobacco Use Types Packs/Day Years [...] Info) Description 02/15/2025 Procedure Pass MRI, [facility] Imaging - [address], [address] [place] [address] 08/12/[address], [facility] Imaging - [address] [facility], [address] [place] [address] 08/12/[address], [facility] Imaging - [address], [address] [place] [address] 08/12/2025 Procedure Pass MRI, [facility] Imaging - [address] [facility], [address] [place] [address] 10/14/2025 1:00 PM EST Office Visit [facility] [address] 9th [place] [address] Bettina Braden MD 55 [facility] 4 [place] [address] MARTÍN@[facility] 10/19/2025 3:00 PM EST Infusion [facility] at [place] [address] [place] [address] Hany Leach MD 02/06/2026 10:30 AM EDT Blood Draw [facility] Lab [place] [address] [facility] [place] [address] Saniya Tan MD 55 [facility] YA 7E [place] [address] [email or web address]@[facility] 02/06/2026 11:[address], [facility] Imaging - [address], [address] [place] [address] Saniya Tan MD 55 [facility] 7E [place] [address] [email or web address]@[facility] 02/06/2026 12:30 PM EDT Appointment MRI, [facility] Imaging - [address], [address] [place] [address] Saniya Tan MD 55 [facility] 7E [place] [address] [email or web address]@[facility] 02/07/2026 9:30 AM EDT Appointment MRI, [facility] - [address], [address] [place] [address] Domenic Goldsmith MD, PhD 55 [facility] 7B [place] [address] [email or web address] 02/14/2026 11:00 AM EDT Office [facility] 32 [facility], 7th Floor, [address] [place] [address] Saniya Tan MD 55 [facility] 7E [place] [address] DIALLO@[facility] 02/14/2026 11:00 AM EDT Office [facility] 32 [facility], 7th Floor, [address] [place] [address] Roxana Ornelas MD 55 [facility] 3 [place] [address] CHIN@[facility] 02/21/2026 10:00 AM EDT Telemedicine - audio only [facility] General & Gastrointestinal Surgery [address] [facility], 4th Floor, [address] [place] [address] Janie Blackmon FNP 55 [facility] 460 [place] [id number] [email or web address] documented as of this encounter Visit Diagnoses Not on filedocumented in this encounter Care Teams Electroplater Helper Relationship Specialty Start Date End Date Frankie Padron MD [address] [place] [address] [place] [address] PCP - General Internal Medicine 07/16/19 Saniya Tan MD 55 [facility] 7E [place] [address] [email or web address] Primary Oncologist Medical Oncology 12/22/20 Domenic Goldsmith MD, PhD [facility] 7B [place] [address] [email or web address] Surgical Oncology 01/11/21 Robert Lomax MD 55 [facility] 7B [place] [address] [email or web address]@[email or web address] Cardiothoracic Surgery 07/03/22 08/18/23 Mary Sanon MD 55 [facility] 3 [place] [address] maria [email or web address] Radiation Oncology 07/03/22 Marcy Garvey RN 55 [facility] MAY 3 [place] [address] [email or web address] Primary Infusion Nurse 10/23/23 11/19/23 Davina Peraza RN Associate Infusion Nurse 10/29/23 11/19/23 Davina Peraza, RACHEL [address] [place] [address] [email or web address] Primary Infusion Nurse 11/20/23 documented as of this encounter Additional Source Comments The information contained in this document represents components of the legal health record. It is not the complete legal health record.[facility]
--- OUTSIDE RECORDS SUMMARY | 2025-09-16 20:50 | XMS_ITS | Encounter Summary ---
Author Organization [facility] Address [address] [place] [address] Phone Care Team Providers Care Branch Service Representative Name Role Phone Frankie Padron MD Primary Care Provider Saniya Tan MD Unavailable Domenic Goldsmiht MD, PhD Unavailable [phone] Mary Sanon MD Unavailable [phone] Davina Peraza RN Unavailable [email or web address] Encounter Details Date Type Department Care Team (Late st Contact Info) Description 01/15/2024 Procedure Pass MRI, [facility] Imaging - [address], [address] [place] [address] Social History Tobacco Use Types [...] Info) Description 02/15/2025 Procedure Pass MRI, [facility] Imaging - [place] [address] [facility], [address] [place] [address] 08/12/[address], [facility] - [place] [address] [facility], [address] [place] [address] 08/12/[address], [facility] - [place] [address] [facility], [address] [place] [address] 08/12/2025 Procedure Pass MRI, [facility] Imaging - [address] [facility], [address] [place] [address] 10/14/2025 1:00 PM EST Office Visit [facility] 165 [facility] 9th [place] [address] Bettina Braden MD [address] [place] [address] MARTÍN@[facility] 10/19/2025 3:00 PM EST Infusion [facility] at [address] [address] Unknown, Hany, 02/06/2026 10:30 AM EDT Blood Draw [facility] [place] [address] [place] [address] Saniya Tan MD [address] [address] DIALLO@[facility] 02/06/2026 11:[address], [facility] Imaging - [address] [facility], [address] [place] [address] Saniya Tan MD [address] [place] [address] 7[address] [place] [address] DIALLO@[facility] 02/06/2026 12:30 PM EDT Appointment MRI, [facility] Imaging - [address], [address] [place] [address] Saniya Tan MD [address] [facility] 7E [place] [address] DIALLO@[facility] 02/07/2026 9:30 AM EDT Appointment MRI, [facility] General Imaging - [address], [address] [place] [address] Domenic Goldsmith MD, PhD [address] [address] JIGAR@[email or web address] 02/14/2026 11:00 AM EDT Office Visit [facility] 32 [facility], 7th Floor, [address] [place] [address] Saniya aTn MD 55 [facility] 7E [place] [address] DIALLO@[facility] 02/14/2026 11:00 AM EDT Office Visit [facility] 32 [facility], 7th Floor, [address] [place] [address] Roxana Ornelas MD 55 [facility] 3 [place] [address] CHIN@[email or web address] 02/21/2026 10:00 AM EDT Telemedicine - audio only [facility] & Gastrointestinal Surgery 55 [facility], 4th Floor, [address] [place] [address] Janie Blackmon FNP 55 [facility] 460 [place] [address] [email or web address] g documented as of this encounter Visit Diagnoses Not on filedocumented in this encounter Care Teams Branch Service Representative Relationship Specialty Start Date End Date Frankie Padron MD [address] [place] [address] [place] [address] PCP - General Internal Medicine 07/16/19 Saniya Tan MD 55 [facility] Y[address] [place] [address] [email or web address] Primary Oncologist Medical Oncology 12/22/20 Domenic Goldsmith MD, PhD 55 [facility] 7B [place] [address] [email or web address] Surgical Oncology 01/11/21 Mary Sanon MD 55 [facility] MAY 3 [place] [address] [email or web address] Radiation Oncology 07/03/22 Davina Peraza RN 55 [place] [address] [email or web address] Primary Infusion Nurse 11/20/23 documented as of this encounter Additional Source Comments The information contained in this document represents components of the legal health record. It is not the complete legal health record.[facility]
--- OUTSIDE RECORDS SUMMARY | 2025-09-16 20:51 | XMS_ITS | Encounter Summary ---
Author Organization [facility] Address [address] [facility] [address] [place] [address] Phone Care Team Providers Care Fishing Rod Trimmer Name Role Phone Frankie Padron MD Primary Care Provider Saniya Tan MD Unavailable Domenic Goldsmith MD, PhD Unavailable [phone] Mary Sanon MD Unavailable [phone] Davina Peraza RN Unavailable [email or web address] Encounter Details Date Type Department Care Team (Late st Contact Info) Description 12/04/2023 Procedure Pass [facility] PETCT Imaging, [place] 2 [address] [facility], 2nd [place] [address] Social History Tobacco Use Types Packs/Day Years [...] [facility] - [place] [facility], [address] [place] [address] 08/12/[address], [facility] - [place] [address] [facility] [address] [facility], [address] [place] [address] 08/12/[address], [facility] - [place] [address] [facility], [address] [place] [address] 08/12/2025 Procedure Pass MRI, [facility] Imaging - [address] [facility], [address] [place] [address] 10/14/2025 1:00 PM EST Office Visit [facility] [address] [facility] 9th [place] [address] Bettina Braden MD 55 [facility] 4 [place] [address] MARTÍN@[facility] 10/19/2025 3:00 PM EST Infusion [facility] at [address] [address] H[place], Hany, 02/06/2026 10:30 AM EDT Blood Draw [facility] Lab [place] [address] [place] [address] Saniya Tan MD 55 [facility] 7E [place] [address] DIALLO@[facility] 02/06/2026 11:[address], [facility] Imaging - [address] [facility], [address] [place] [address] Saniya Tan MD 55 [facility] 7E [place] [address] DIALLO@[facility] 02/06/2026 12:30 PM EDT Appointment MRI, [facility] Imaging - [address], [address] [place] [address] Saniya Tan MD 55 [facility] 7E [place] [address] DIALLO@[facility] 02/07/2026 9:30 AM EDT Appointment MRI, [facility] Imaging - [address], [address] [place] [address] Domenic Goldsmith MD, PhD 55 [facility] 7B [place] [address] MQJUNIOR@[facility] 02/14/2026 11:00 AM EDT Office [facility] 32 [facility], 7th Floor, [address] [place] [address] Saniya Tan MD 55 [facility] 7E [place] [address] DIALLO@[facility] 02/14/2026 11:00 AM EDT Office Visit [facility] 32 [facility], 7th Floor, [address] [place] [address] Roxana Ornelas MD 55 [facility] 3 [place] [address] CHIN@[facility] 02/21/2026 10:00 AM EDT Telemedicine - audio only [facility] General & Gastrointestinal Surgery 55 [facility], 4th Floor, [address] [place] [address] Janie Blackmon FNP 55 [facility] 460 [place] [address] [email or web address] g documented as of this encounter Visit Diagnoses Not on filedocumented in this encounter Care Teams Fishing Rod Trimmer Relationship Specialty Start Date End Date Frankie Padron MD [address] [place] [address] [place] [address] PCP - General Internal Medicine 07/16/19 Saniya Tan MD 55 [facility] YA 7E [place] [address] DIALLO@[email or web address] Primary Oncologist Medical Oncology 12/22/20 Domenic Goldsmith MD, PhD 55 [facility] 7B [place] [address] JIGAR@[email or web address] Surgical Oncology 01/11/21 Mary Sanon MD 55 [facility] MAY 3 [place] [address] [email or web address] [email or web address] u Radiation Oncology 07/03/22 Davina Peraza RN 55 [place] [address] [email or web address] Primary Infusion Nurse 11/20/23 documented as of this encounter Additional Source Comments The information contained in this document represents components of the legal health record. It is not the complete legal health record.[facility]
--- OUTSIDE RECORDS SUMMARY | 2025-09-16 20:51 | XMS_ITS | Encounter Summary ---
Author Organization [facility] Address [address] [facility] [address] [place] [address] Phone Care Team Providers Care Rn Urology Name Role Phone Frankie Padron MD Primary Care Provider Saniya Tan MD Unavailable Domenic Goldsmith MD, PhD Unavailable [phone] Mary Sanon MD Unavailable [phone] Davina Peraza RN Unavailable [email or web address] Encounter Details Date Type Department Care Team (Late st Contact Info) Description 12/04/2023 Procedure Pass [facility] PETCT Imaging, [place] 2 [address] [facility], 2nd [place] [address] Social History Tobacco Use Types Packs/Day Years [...] Contact Info) Description 02/15/2025 Procedure Pass MRI, [facility] - [place] [address] [facility], [address] [place] [address] 08/12/[address], [facility] - [place] [address] [facility] [address] [facility], [address] [place] [address] 08/12/[address], [facility] - [place] [address] [facility], [address] [place] [address] 08/12/2025 Procedure Pass MRI, [facility] - [address] [facility], [address] [place] [address] 10/14/2025 1:00 PM EST Office Visit [facility] [address] [facility] 9th [place] [address] Bettina Braden MD 55 [facility] 4 [place] [address] MARTÍN@[facility] 10/19/2025 3:00 PM EST Infusion [facility] at [address] [address] Hany, Hany, 02/06/2026 10:30 AM EDT Blood Draw [facility] Lab [place] [address] [place] [address] Saniya aTn MD 55 [facility] 7E [place] [address] DIALLO@[email or web address] 02/06/2026 11:[address], [facility] - [address] [facility], [address] [place] [address] Saniya Tan MD 55 [facility] 7E [place] [address] DIALLO@[email or web address] 02/06/2026 12:30 PM EDT Appointment MRI, [facility] - [address], [address] [place] [address] Saniya Tan MD 55 [facility] 7[address] [place] [address] DIALLO@[email or web address] 02/07/2026 9:30 AM EDT Appointment MRI, [facility] - [address], [address] [place] [address] Domenic Goldsmith MD, PhD 55 [facility] 7B [place] [address] MQJUNIOR@[facility] 02/14/2026 11:00 AM EDT Office [facility] 32 [facility], 7th Floor, [address] [place] [address] Saniya Tan MD 55 [facility] [address] [place] [address] DIALLO@[facility] 02/14/2026 11:00 AM EDT Office Visit [facility] 32 [facility], 7th Floor, [address] [place] [address] Roxana Ornelas MD 55 [facility] 3 [place] [address] CHIN@[email or web address] 02/21/2026 10:00 AM EDT Telemedicine - audio only [facility] General & Gastrointestinal Surgery 55 [facility], 4th Floor, [address] [place] [address] Janie Blackmon FNP 55 [facility] 460 [place] [address] [email or web address] g documented as of this encounter Visit Diagnoses Not on filedocumented in this encounter Care Teams Rn Urology Relationship Specialty Start Date End Date Frankie Padron MD [address] [place] [address] [place] [address] PCP - General Internal Medicine 07/16/19 Saniya Tan MD 55 [facility] YA 7E [place] [address] DIALLO@[email or web address] Primary Oncologist Medical Oncology 12/22/20 Domenic Goldsmith MD, PhD 55 [facility] 7B [place] [address] JIGAR@[email or web address] Surgical Oncology 01/11/21 Mary Sanon MD 55 [facility] MAY 3 [place] [address] [email or web address] [email or web address] u Radiation Oncology 07/03/22 Davina Peraza RN 55 [place] [address] [email or web address] Primary Infusion Nurse 11/20/23 documented as of this encounter Additional Source Comments The information contained in this document represents components of the legal health record. It is not the complete legal health record.[facility]
--- OUTSIDE RECORDS SUMMARY | 2025-09-16 20:51 | XMS_ITS | Encounter Summary ---
Author Organization [facility] Address [address] [facility] [address] [place] [address] Phone Care Team Providers Care Mail Processing Associate Name Role Phone Frankie Padron MD Primary Care Provider Saniya Tan MD Unavailable Domenic Goldsmith MD, PhD Unavailable [phone] Robert Lomax MD Unavailable Mary Sanon MD Unavailable Marcy Garvey RN Unavailable [email or web address] Davina Peraza RN Unavailable [email or web address] Davina Peraza RN Unavailable [email or web address] [email or web address] [email or web address] Encounter Details Date Type Department Care Team (Late st Contact Info) Description 06/24/2022 Procedure Pass [facility] [address] [place] [address] Social History Tobacco Use Types Packs/Day Years [...] Contact Info) Description 02/15/2025 Procedure Pass MRI, [facility] - [place] [address] [facility], [address] [place] [address] 08/12/[address], [facility] - [place] [address] [facility], [address] [place] [address] 08/12/[address], [facility] - [place] [address] [facility], [address] [place] [address] 08/12/2025 Procedure Pass MRI, [facility] Imaging - [place] [address] [facility], [address] [place] [address] 10/14/2025 1:00 PM EST Office Visit [facility] 165 [facility] 9th [place] [address] Bettina Braden MD [address] [place] [address] 4 [place] [address] MARTÍN@[facility] 10/19/2025 3:00 PM EST Infusion [facility] at [address] [address] Hany Leach MD 02/06/2026 10:30 AM EDT Blood Draw [facility] [address] [place] [address] Saniya Tan MD [address] [place] [address] DIALLO@[facility] 02/06/2026 11:[address], [facility] - [place] 52 [facility], [address] [place] [address] Saniya Tan MD [address] [place] [address] 7E [place] [address] DIALLO@[facility] 02/06/2026 12:30 PM EDT Appointment MRI, [facility] - [place] [address] [facility], [address] [place] [address] Saniya Tan MD 55 [facility] 7E [place] [address] DIALLO@[facility] 02/07/2026 9:30 AM EDT Appointment MRI, [facility] - [place] [address] [facility], [address] [place] [address] Domenic Goldsmith MD, PhD 55 [facility] 7B [place] [address] JIGAR@[facility] 02/14/2026 11:00 AM EDT Office Visit [facility] 32 [facility], 7th Floor, [address] [place] [address] Saniya Tan MD [address] [place] [address] 7E [place] [address] DIALLO@[facility] 02/14/2026 11:00 AM EDT Office Visit [facility] 32 [facility], 7th Floor, [address] [place] [address] Roxana Ornelas MD 55 [facility] MAY 3 [place] [address] CHIN@[email or web address] 02/21/2026 10:00 AM EDT Telemedicine - audio only [facility] General & Gastrointestinal Surgery 55 [facility], 4th Floor, [address] [place] [address] Janie Blackmon FNP 55 [facility] 460 [place] [address] [email or web address] [email or web address] [email or web address] g documented as of this encounter Visit Diagnoses Not on filedocumented in this encounter Care Teams Mail Processing Associate Relationship Specialty Start Date End Date Frankie Padron MD [address] [place] [address] [place] [address] PCP - General Internal Medicine 07/16/19 Saniya Tna MD 55 [facility] YA 7E [place] [address] DIALLO@[email or web address] Primary Oncologist Medical Oncology 12/22/20 Domenic Goldsmith MD, PhD [address] [facility] 7B [place] [address] JIGAR@[email or web address] Surgical Oncology 01/11/21 Robert Lomax MD 55 [facility] 7B [place] [address] MARCELA@[facility] Cardiothoracic Surgery 07/03/22 08/18/23 Mary Sanon MD 55 [facility] 3 [place] [address] maria [email or web address] Radiation Oncology 07/03/22 Marcy Garvey RN 55 [facility] 3 [place] [address] [email or web address] Primary Infusion Nurse 10/23/23 11/19/23 Davina Peraza RN Associate Infusion Nurse 10/29/23 11/19/23 Davina Peraza RN 55 [place] [address] [email or web address] [place] [email or web address].[facility] Primary Infusion Nurse 11/20/23 documented as of this encounter Additional Source Comments The information contained in this document represents components of the legal health record. It is not the complete legal health record.[facility]
--- OUTSIDE RECORDS SUMMARY | 2025-09-16 20:51 | XMS_ITS | Encounter Summary ---
Author Organization [facility] Address [address] [facility] [address] [place] [address] Phone Care Team Providers Care Welding Machine Operator Gas Name Role Phone Frankie Padron MD Primary Care Provider Saniya Tan MD Unavailable Domenic Goldsmith MD, PhD Unavailable [phone] Robert Lomax MD Unavailable Mary Sanon MD Unavailable [phone] Marcy Garvey RN Unavailable [email or web address] Davina Peraza RN Unavailable [email or web address] Davina Peraza RN Unavailable [email or web address] Encounter Details Date Type Department Care Team (Late st Contact Info) Description 09/04/2021 Procedure Pass Interventional Radiology, [facility] - [address] [place] [address] Social History Tobacco Use Types Packs/Day Years [...] Contact Info) Description 02/15/2025 Procedure Pass MRI, [facility] Imaging - [address], [address] [place] [address] 08/12/[address], [facility] Imaging - [address], [address] [place] [address] 08/12/[address], [facility] Imaging - [address] [facility], [address] [place] [address] 08/12/2025 Procedure Pass MRI, [facility] - [address], [address] [place] [address] 10/14/2025 1:00 PM EST Office Visit [facility] 165 [facility] 9th [place] [address] Bettina Braden MD [address] [place] [address] MARTÍN@[facility] 10/19/2025 3:00 PM EST Infusion [facility] at [address] [address] Hany Leach MD 02/06/2026 10:30 AM EDT Blood Draw [facility] Lab [address] [address] Saniya Tan MD [address] [place] [address] DIALLO@[facility] 02/06/2026 11:[address], [facility] General Imaging - [address] [place] [address] Saniya Tan MD [address] [place] [address] DIALLO@[facility] 02/06/2026 12:30 PM EDT Appointment MRI, [facility] Imaging - [place] 52 [facility], [address] [place] [address] Saniya Tan MD 55 [facility] 7E [place] [address] DIALLO@[facility] 02/07/2026 9:30 AM EDT Appointment MRI, [facility] Imaging - [place] 52 [facility], [address] [place] [address] Domenic Goldsmith MD, PhD 55 [facility] 7B [place] [address] JIGAR@[facility] 02/14/2026 11:00 AM EDT Office Visit [facility] 32 [facility], 7th Floor, [address] [place] [address] Saniya Tan MD [address] [place] [address] 7[address] [place] [address] DIALLO@[facility] 02/14/2026 11:00 AM EDT Office Visit [facility] 32 [facility], 7th Floor, [address] [place] [address] Roxana Ornelas MD 55 [facility] 3 [place] [address] CHIN@[facility] 02/21/2026 10:00 AM EDT Telemedicine - audio only [facility] General & Gastrointestinal Surgery 55 [facility], 4th Floor, [address] [place] [address] Janie Blackmon FNP 55 [facility] 460 [place] [address] [email or web address] g documented as of this encounter Visit Diagnoses Not on filedocumented in this encounter Care Teams Welding Machine Operator Gas Relationship Specialty Start Date End Date Frankie Padron MD [address] [place] [address] [place] [address] PCP - General Internal Medicine 07/16/19 Saniya Tan MD [facility] YA 7E [place] [address] DIALLO@[facility] Primary Oncologist Medical Oncology 12/22/20 Domenic Goldsmith MD, PhD 55 [facility] 7B [place] [address] JIGAR@[email or web address] Surgical Oncology 01/11/21 Robert Lomax MD 55 [facility] 7B [place] [address] MARCELA@[facility] Cardiothoracic Surgery 07/03/22 08/18/23 Mary Sanon MD 55 [facility] 3 [place] [address] maria [email or web address] Radiation Oncology 07/03/22 Marcy Garvey RN 55 [facility] 3 [place] [address] [email or web address] Primary Infusion Nurse 10/23/23 11/19/23 Davina Peraza RN Associate Infusion Nurse 10/29/23 11/19/23 Davina Peraza RN 55 [place] [address] [email or web address] Primary Infusion Nurse 11/20/23 documented as of this encounter Additional Source Comments The information contained in this document represents components of the legal health record. It is not the complete legal health record.[facility]
--- OUTSIDE RECORDS SUMMARY | 2025-09-16 20:51 | XMS_ITS | Encounter Summary ---
Author Organization [facility] Address [address] [facility] [address] [place] [address] Phone Care Team Providers Care Counter Intelligence Name Role Phone Frankie Padron MD Primary Care Provider Saniya Tan MD Unavailable Domenic Goldsmith MD, PhD Unavailable [phone] Robert Lomax MD Unavailable Mary Sanon MD Unavailable Marcy Garvey RN Unavailable [email or web address] Davina Peraza RN Unavailable [email or web address] Davina Peraza RN Unavailable [email or web address] Encounter Details Date Type Department Care Team (Late st Contact Info) Description 04/21/2020 Procedure Pass [facility] PERI[facility]IVE DEPT [address] [place] [address] Social History Tobacco Use Types Packs/Day Years [...] [facility] - [place] [address] [facility], [address] [place] [address] 08/12/[address] [place] [address] [facility], [address] [place] [address] 08/12/[address], [facility] General Imaging - [place] [address] [facility], [address] [place] [address] 08/12/2025 Procedure Pass MRI, [facility] General Imaging - [place] [address] [facility], [address] [place] [address] 10/14/2025 1:00 PM EST Office Visit [facility] [address] [facility] 9th [place] [address] Bettina Braden MD [address] [place] [address] 4 [place] [address] MARTÍN@[facility] 10/19/2025 3:00 PM EST Infusion [facility] at [address] [address] Hany Leach MD 02/06/2026 10:30 AM EDT Blood Draw [facility] Lab [address] [place] [address] Saniya Tan MD [address] [place] [address] DIALLO@[facility] 02/06/2026 11:[address], [facility] - [place] [address] [facility], [address] [place] [address] Saniya Tan MD [address] [place] [address] [address] [place] [address] DIALLO@[facility] 02/06/2026 12:30 PM EDT Appointment MRI, [facility] General Imaging - [place] 52 [facility], [address] [place] [address] Saniya Tan MD [address] [facility] [address] [place] [address] DIALLO@[facility] 02/07/2026 9:30 AM EDT Appointment MRI, [facility] Imaging - [place] 52 [facility], [address] [place] [address] Domenic Goldsmith MD, PhD [address] [address] JIGAR@[facility] 02/14/2026 11:00 AM EDT Office Visit [facility] [address] [facility], 7th Floor, [address] [place] [address] Saniya Tan MD [address] [place] [address] [address] [place] [address] DIALLO@[facility] 02/14/2026 11:00 AM EDT Office Visit [facility] [address] [facility], 7th Floor, [address] [place] [address] Roxana Ornelas MD 55 [facility] MAY 3 [place] [address] CHIN@[facility] 02/21/2026 10:00 AM EDT Telemedicine - audio only [facility] General & Gastrointestinal Surgery 55 [facility], 4th Floor, [address] [place] [address] Janie Blackmon FNP 55 [facility] 460 [place] [phone] [email or web address] g documented as of this encounter Visit Diagnoses Not on filedocumented in this encounter Care Teams Counter Intelligence Relationship Specialty Start Date End Date Frankie Padron MD [address] [place] [address] [place] [address] PCP - General Internal Medicine 07/16/19 Saniya Tan MD 55 [facility] YA [address] [place], [place] DIALLO@[email or web address] Primary Oncologist Medical Oncology 12/22/20 Domenic Goldsmith MD, PhD [facility] [address] [place] [address] JIGAR@[facility] Surgical Oncology 01/11/21 Robert Lomax MD 55 [facility] 7[address] [place] [address] MARCELA@[facility] Cardiothoracic Surgery 07/03/22 08/18/23 Mary Sanon MD 55 [facility] 3 [place] [address] [email or web address] [place] Radiation Oncology 07/03/22 Marcy Garvey RN [address] [facility] 3 [place] [address] [email or web address] Primary Infusion Nurse 10/23/23 11/19/23 Davina Peraza RN Associate Infusion Nurse 10/29/23 11/19/23 Davina Peraza RN 55 [place] [address] [email or web address] Primary Infusion Nurse 11/20/23 documented as of this encounter Additional Source Comments The information contained in this document represents components of the legal health record. It is not the complete legal health record.[facility]
--- OUTSIDE RECORDS SUMMARY | 2025-09-16 20:51 | XMS_ITS | Encounter Summary ---
Author Organization [facility] Address [address] [facility] [address] [place] [address] Phone Care Team Providers Care Contract Lead Name Role Phone Frankie Padron MD Primary Care Provider Saniya Tan MD Unavailable Domenic Goldsmith MD, PhD Unavailable [phone] Robert Lomax MD Unavailable Mary Sanon MD Unavailable Marcy Garvey RN Unavailable [email or web address] Davina Peraza RN Unavailable [email or web address] Davina Peraza RN Unavailable [email or web address] Encounter Details Date Type Department Care Team (Late st Contact Info) Description 06/19/2021 Procedure Pass [facility] Imaging - RF/IR [address] [place] [address] Social History Tobacco Use Types Packs/Day Years [...] [facility] General Imaging - [place] [address] [facility], [address] [place] [address] 08/12/[address], [facility] General Imaging - [place] [address] [facility], [address] [place] [address] 08/12/[address], [facility] General Imaging - [place] [address] [facility], [address] [place] [address] 08/12/2025 Procedure Pass MRI, [facility] General Imaging - [place] [address] [facility], [address] [place] [address] 10/14/2025 1:00 PM EST Office Visit [facility] [address] [facility] 9th [place] [address] Bettina Braden MD [address] [place] [address] 4 [place] [address] MARTÍN@[facility] 10/19/2025 3:00 PM EST Infusion [facility] at [address] [address] Hany Leach MD 02/06/2026 10:30 AM EDT Blood Draw [facility] Lab [address] [place] [address] Saniya Tan MD [address] [place] [address] DIALLO@[facility] 02/06/2026 11:[address], [facility] General Imaging - [place] [address] [facility], [address] [place] [address] Saniya Tan MD [address] [place] [address] 7[address] [place] [address] DIALLO@[facility] 02/06/2026 12:30 PM EDT Appointment MRI, [facility] General Imaging - [place] 52 [facility], [address] [place] [address] Saniya Tan MD [address] [facility] 7[address] [place] [address] DIALLO@[email or web address] 02/07/2026 9:30 AM EDT Appointment MRI, [facility] Imaging - [place] 52 [facility], [address] [place] [address] Domenic Goldsmith MD, PhD 55 [facility] 7[address] [place] [address] JIGAR@[email or web address] 02/14/2026 11:00 AM EDT Office Visit [facility] 32 [facility], 7th Floor, [address] [place] [address] Saniya Tan MD [address] [place] [address] [address] [place] [address] DIALLO@[facility] 02/14/2026 11:00 AM EDT Office Visit [facility] 32 [facility], 7th Floor, [address] [place] [address] Roxana Ornelas MD 55 [facility] MAY 3 [place] [address] CHIN@[facility] 02/21/2026 10:00 AM EDT Telemedicine - audio only [facility] General & Gastrointestinal Surgery 55 [facility], 4th Floor, [address] [place] [address] Janie Blackmon FNP 55 [facility] 460 [place] [phone] [email or web address] g documented as of this encounter Visit Diagnoses Not on filedocumented in this encounter Care Teams Contract Lead Relationship Specialty Start Date End Date Frankie Padron MD [address] [place] [address] [place] [address] PCP - General Internal Medicine 07/16/19 Saniya Tan MD 55 [facility] YA [address] [place] [address] DIALLO@[facility] Primary Oncologist Medical Oncology 12/22/20 Domenic Goldsmith MD, PhD [address] [facility] [address] [place] [address] JIGAR@[facility] Surgical Oncology 01/11/21 Robert Lomax MD 55 [facility] 7[address] [place] [address] MARCELA@[facility] Cardiothoracic Surgery 07/03/22 08/18/23 Mary Sanon MD 55 [facility] 3 [place] [address] maria [email or web address] Radiation Oncology 07/03/22 Marcy Garvey RN 55 [facility] 3 [place] [address] [email or web address] Primary Infusion Nurse 10/23/23 11/19/23 Davina Peraza RN Associate Infusion Nurse 10/29/23 11/19/23 Davina Peraza RN 55 [place] [address] [email or web address] Primary Infusion Nurse 11/20/23 documented as of this encounter Additional Source Comments The information contained in this document represents components of the legal health record. It is not the complete legal health record.[facility]
--- OUTSIDE RECORDS SUMMARY | 2025-09-16 20:51 | XMS_ITS | Encounter Summary ---
Author Organization [facility] Address [address] [facility] [address] [place] [address] Phone Care Team Providers Care Business Taxes Specialist Name Role Phone Frankie Padron MD Primary Care Provider Saniya Tan MD Unavailable Domenic Goldsmith MD, PhD Unavailable [phone] Robert Lomax MD Unavailable Mary Sanon MD Unavailable Marcy Garvey RN Unavailable [email or web address] Davina Peraza RN Unavailable [email or web address] Davina Peraza RN Unavailable [email or web address] Encounter Details Date Type Department Care Team (Late st Contact Info) Description 07/06/2021 Procedure Pass [facility] PERI[facility]IVE [facility]PT [address] [place] [address] Social History Tobacco Use Types Packs/Day Years [...] [facility] General Imaging - [place] [address] [facility], [address] [place] [address] 08/12/[address], [facility] General Imaging - [place] [address] [facility], [address] [place] [address] 08/12/[address], [facility] General Imaging - [place] [address] [facility], [address] [place] [address] 08/12/2025 Procedure Pass MRI, [facility] General Imaging - [place] [address] [facility], [address] [place] [address] 10/14/2025 1:00 PM EST Office Visit [facility] [address] [facility] 9th [place] [address] Bettina Braden MD [address] [place] [address] 4 [place] [address] MARTÍN@[facility] 10/19/2025 3:00 PM EST Infusion [facility] at [address] [address] Hany Leach MD 02/06/2026 10:30 AM EDT Blood Draw [facility] Lab [address] [place] [address] Saniya Tan MD [address] [place] [address] DIALLO@[facility] 02/06/2026 11:[address], [facility] General Imaging - [place] 52 [facility], [address] [place] [address] Saniya Tan MD [address] [place] [address] 7[address] [place] [address] DIALLO@[facility] 02/06/2026 12:30 PM EDT Appointment MRI, [facility] General Imaging - [place] 52 [facility], [address] [place] [address] Saniya Tan MD 55 [facility] 7[address] [place] [address] DIALLO@[facility] 02/07/2026 9:30 AM EDT Appointment MRI, [facility] Imaging - [place] 52 [facility], [address] [place] [address] Domenic Goldsmith MD, PhD 55 [facility] 7[address] [place] [address] JIGAR@[facility] 02/14/2026 11:00 AM EDT Office Visit [facility] 32 [facility], 7th Floor, [address] [place] [address] Saniya Tan MD [address] [place] [address] [address] [place] [address] DIALLO@[facility] 02/14/2026 11:00 AM EDT Office Visit [facility] 32 [facility], 7th Floor, [address] [place] [address] Roxana Ornelas MD 55 [facility] MAY 3 [place] [address] CHIN@[facility] 02/21/2026 10:00 AM EDT Telemedicine - audio only [facility] General & Gastrointestinal Surgery 55 [facility], 4th Floor, [address] [place] [address] Janie Blackmon FNP 55 [facility] 460 [place] [phone] [email or web address] g documented as of this encounter Visit Diagnoses Not on filedocumented in this encounter Care Teams Business Taxes Specialist Relationship Specialty Start Date End Date Frankie Padron MD [address] [place] [address] [place] [address] PCP - General Internal Medicine 07/16/19 Saniya Tan MD 55 [facility] YA 7[address] [place] [address] DIALLO@[email or web address] Primary Oncologist Medical Oncology 12/22/20 Domenic Goldsmith MD, PhD [address] [facility] 7B [place] [address] JIGAR@[facility] Surgical Oncology 01/11/21 Robert Lomax MD 55 [facility] 7[address] [place] [address] MARCELA@[facility] Cardiothoracic Surgery 07/03/22 08/18/23 Mary Sanon MD 55 [facility] 3 [place] [address] maria [email or web address] Radiation Oncology 07/03/22 Marcy Garvey RN 55 [facility] 3 [place] [address] [email or web address] Primary Infusion Nurse 10/23/23 11/19/23 Davina Peraza RN Associate Infusion Nurse 10/29/23 11/19/23 Davina Peraza RN 55 [place] [address] [email or web address] Primary Infusion Nurse 11/20/23 documented as of this encounter Additional Source Comments The information contained in this document represents components of the legal health record. It is not the complete legal health record.[facility]
--- OUTSIDE RECORDS SUMMARY | 2025-09-16 20:51 | XMS_ITS | Encounter Summary ---
Author Organization [facility] Address [address] [facility] [address] [place] [address] Phone Care Team Providers Care Lip Of Shank Cutter Name Role Phone Frankie Padron MD Primary Care Provider Saniya Tan MD Unavailable Domenic Goldsmith MD, PhD Unavailable [phone] Robert Lomax MD Unavailable [phone] Mary Sanon MD Unavailable Marcy Garvey RN Unavailable [email or web address] Davina Peraza RN Unavailable [email or web address] Davina Peraza RN Unavailable mcutting @[email or web address] Encounter Details Date Type Department Care Team (Late st Contact Info) Description 10/10/2021 Procedure Pass [facility] PER[facility]PT [address] [place] [address] Social History Tobacco Use Types Packs/Day Years [...] [facility] General Imaging - [place] [address] [facility], [address] [place] [address] 08/12/[address], [facility] General Imaging - [place] [address] [facility], [address] [place] [address] 08/12/[address], [facility] General Imaging - [place] [address] [facility], [address] [place] [address] 08/12/2025 Procedure Pass MRI, [facility] General Imaging - [place] [address] [facility], [address] [place] [address] 10/14/2025 1:00 PM EST Office Visit [facility] [address] [facility] 9th [place] [address] Bettina Braden MD [address] [place] [address] 4 [place] [address] MARTÍN@[facility] 10/19/2025 3:00 PM EST Infusion [facility] at [address] [address] Hany Leach MD 02/06/2026 10:30 AM EDT Blood Draw [facility] Lab [address] [place] [address] Saniya Tan MD [address] [place] [address] DIALLO@[facility] 02/06/2026 11:[address], [facility] General Imaging - [place] [address] [facility], [address] [place] [address] Saniya Tan MD [address] [place] [address] 7[address] [place] [address] DIALLO@[facility] 02/06/2026 12:30 PM EDT Appointment MRI, [facility] General Imaging - [place] 52 [facility], [address] [place] [address] Saniya Tan MD 55 [facility] 7E [place] [address] DIALLO@[facility] 02/07/2026 9:30 AM EDT Appointment MRI, [facility] - [place] 52 [facility], [address] [place] [address] Domenic Goldsmith MD, PhD 55 [facility] 7[address] [place] [address] JIGAR@[facility] 02/14/2026 11:00 AM EDT Office Visit [facility] 32 [facility], 7th Floor, [address] [place] [address] Saniya Tan MD [address] [place] [address] 7[address] [place] [address] DIALLO@[facility] 02/14/2026 11:00 AM EDT Office Visit [facility] 32 [facility], 7th Floor, [address] [place] [address] Roxana Ornelas MD 55 [facility] MAY 3 [place] [address] CHIN@[email or web address] 02/21/2026 10:00 AM EDT Telemedicine - audio only [facility] General & Gastrointestinal Surgery 55 [facility], 4th Floor, [address] [place] [address] Janie Blackmon FNP 55 [facility] 460 [place] [phone] [email or web address] g documented as of this encounter Visit Diagnoses Not on filedocumented in this encounter Care Teams Lip Of Shank Cutter Relationship Specialty Start Date End Date Frankie Padron MD [address] [place] [address] [place] [address] PCP - General Internal Medicine 07/16/19 Saniya Tan MD 55 [facility] YA [address] [place] [address] DIALLO@[email or web address] Primary Oncologist Medical Oncology 12/22/20 Domenic Goldsmith MD, PhD [address] [facility] 7B [place] [address] JIGAR@[email or web address] Surgical Oncology 01/11/21 Robert Lomax MD 55 [facility] 7[address] [place] [address] MARCELA@[facility] Cardiothoracic Surgery 07/03/22 08/18/23 Mary Sanon MD 55 [facility] 3 [place] [address] maria [email or web address] Radiation Oncology 07/03/22 Marcy Garvey RN 55 [facility] 3 [place] [address] [email or web address] Primary Infusion Nurse 10/23/23 11/19/23 Davina Peraza RN Associate Infusion Nurse 10/29/23 11/19/23 Davina Peraza RN 55 [place] [address] [email or web address]@[facility] Primary Infusion Nurse 11/20/23 documented as of this encounter Additional Source Comments The information contained in this document represents components of the legal health record. It is not the complete legal health record.[facility]
--- OUTSIDE RECORDS SUMMARY | 2025-09-16 20:51 | XMS_ITS | Encounter Summary ---
Author Organization [facility] Address [address] [place] [address] Phone Care Team Providers Care Laundry Tub Maker Name Role Phone Frankie Padron MD Primary Care Provider Saniya Tan MD Unavailable Domenic Goldsmith MD, PhD Unavailable [phone] Robert Lomax MD Unavailable Mary Sanon MD Unavailable Marcy Garvey RN Unavailable [email or web address] [email or web address] Davina Peraza RN Unavailable [email or web address] Davina Peraza RN Unavailable [email or web address] Encounter Details Date Type Department Care Team (Late st Contact Info) Description 07/27/2021 Procedure Pass [facility], Ct Scan - [address] [address] Social History Tobacco Use Types Packs/Day Years [...] [facility] General Imaging - [place] [address] [facility], [address] [place] [address] 08/12/[address], [facility] General Imaging - [address] [facility], [address] [place] [address] 08/12/[address], [facility] General Imaging - [place] [address] [facility], [address] [place] [address] 08/12/2025 Procedure Pass MRI, [facility] General Imaging - [address] [facility], [address] [place] [address] 10/14/2025 1:00 PM EST Office Visit [facility] [address] 9th [place] [address] Bettina Braden MD [address] [place] [address] MARTÍN@[facility] 10/19/2025 3:00 PM EST Infusion [facility] at [address] [address] Hany Leach MD 02/06/2026 10:30 AM EDT Blood Draw [facility] Lab [address] [address] Saniya Tan MD [address] [place] [address] DIALLO@[facility] 02/06/2026 11:[address], [facility] General Imaging - [address] [facility], [address] [place] [address] Saniya Tan MD [address] [place] [address] DIALLO@[facility] 02/06/2026 12:30 PM EDT Appointment MRI, [facility] Imaging - [place] 52 [facility], [address] [place] [address] Saniya Tan MD 55 [facility] [address]E [place] [address] DIALLO@[facility] 02/07/2026 9:30 AM EDT Appointment MRI, [facility] Imaging - [address], [address] [place] [address] Domenic Goldsmith MD, PhD 55 [facility] 7B [place] [address] JIGAR@[email or web address] 02/14/2026 11:00 AM EDT Office Visit [facility] 32 [facility], 7th Floor, [address] [place] [address] Saniya Tan MD [address] [place] [address] [address] [place] [address] DIALLO@[facility] 02/14/2026 11:00 AM EDT Office Visit [facility] 32 [facility], 7th Floor, [address] [place] [address] Roxana Ornelas MD [address] [place] [address] MAY 3 [place] [address] CHIN@[email or web address] 02/21/2026 10:00 AM EDT Telemedicine - audio only [facility] General & Gastrointestinal Surgery 55 [facility], 4th Floor, [address] [place] [address] Janie Blackmon FNP 55 [facility] 460 [place] [phone] [email or web address] [email or web address] g documented as of this encounter Visit Diagnoses Not on filedocumented in this encounter Care Teams Laundry Tub Maker Relationship Specialty Start Date End Date Frankie Padron MD [address] [place] [address] [place] [address] PCP - General Internal Medicine 07/16/19 Saniya Tan MD 55 [facility] YA [address] [place], [place] DIALLO@[facility] Primary Oncologist Medical Oncology 12/22/20 Domenic Goldsmith MD, PhD [address] [facility] [address] [place] JIGAR@[email or web address] Surgical Oncology 01/11/21 Robert Lomax MD [address] [facility] [address] [place] [address] MARCELA@[facility] Cardiothoracic Surgery 07/03/22 08/18/23 Mary Sanon MD 55 [facility] 3 [place] [address] maria [email or web address] Radiation Oncology 07/03/22 Marcy Garvey RN 55 [facility] 3 [place] [address] [email or web address] Primary Infusion Nurse 10/23/23 11/19/23 Davina Peraza RN Associate Infusion Nurse 10/29/23 11/19/23 Davina Peraza RN [address] [place] [address] [email or web address] Primary Infusion Nurse 11/20/23 documented as of this encounter Additional Source Comments The information contained in this document represents components of the legal health record. It is not the complete legal health record.[facility]
--- OUTSIDE RECORDS SUMMARY | 2025-09-16 20:51 | XMS_ITS | Encounter Summary ---
Author Organization [facility] Address [address] [place] [address] Phone Care Team Providers Care Channel Opener Name Role Phone Frankie Padron MD Primary Care Provider Saniya Tan MD Unavailable Domenic Goldsmith MD, PhD Unavailable [phone] Mary Sanon MD Unavailable [phone] Davina Peraza RN Unavailable [email or web address] Encounter Details Date Type Department Care Team (Late st Contact Info) Description 05/04/2024 Procedure Pass [facility] Imaging - RF/IR [address] [place] [address] Social History Tobacco Use Types Packs/Day Years [...] Description 02/15/2025 Procedure Pass MRI, [facility] - [address] [facility], [address] [place] [address] 08/12/[address], [facility] - [place] [address] [facility], [address] [place] [address] 08/12/[address], [facility] - [place] [address] [facility], [address] [place] [address] 08/12/2025 Procedure Pass MRI, [facility] Imaging - [address] [facility], [address] [place] [address] 10/14/2025 1:00 PM EST Office Visit [facility] [address] 9th [place] [address] Bettina Braden MD [address] [place] [address] MARTÍN@[facility] 10/19/2025 3:00 PM EST Infusion [facility] at [address] [address] Hany Leach MD 02/06/2026 10:30 AM EDT Blood Draw [facility] Lab [place] 52 [facility] [address] Saniya Tan MD [address] [place] [address] DIALLO@[facility] 02/06/2026 11:[address], [facility] Imaging - [address] [facility], [address] [place] [address] Saniya Tan MD [address] [place] [address] DIALLO@[facility] 02/06/2026 12:30 PM EDT Appointment MRI, [facility] Imaging - [place] 52 [facility], [address] [place] [address] Saniya Tan MD [address] [address] DIALLO@[facility] 02/07/2026 9:30 AM EDT Appointment MRI, [facility] Imaging - [address], [address] [place] [address] Domenic Goldsmith MD, PhD [address] [address] JIGAR@[facility] 02/14/2026 11:00 AM EDT Office Visit [facility] 32 [facility], 7th Floor, [address] [place] [address] Saniya Tan MD [address] [address] DIALLO@[facility] 02/14/2026 11:00 AM EDT Office Visit [facility] 32 [facility], 7th Floor, [address] [place] [address] Roxana Ornelas MD 55 [facility] 3 [place] [address] CHIN@[facility] 02/21/2026 10:00 AM EDT Telemedicine - audio only [facility] General & Gastrointestinal Surgery 55 [facility], 4th Floor, [address] [place] [address] Janie Blackmon FNP 55 [facility] 460 [place] [address] [email or web address] g documented as of this encounter Visit Diagnoses Not on filedocumented in this encounter Care Teams Channel Opener Relationship Specialty Start Date End Date Frankie Padron MD [address] [place] [address] [place] [address] PCP - General Internal Medicine 07/16/19 Saniya Tan MD [address] [facility] [address] [place] [address] DIALLO@[email or web address] Primary Oncologist Medical Oncology 12/22/20 Domenic Goldsmith MD, PhD 55 [facility] [address]B [place] [address] JIGAR@[facility] Surgical Oncology 01/11/21 Mary Sanon MD 55 [facility] MAY 3 [place] [address] maria [email or web address] u Radiation Oncology 07/03/22 Davina Peraza RN 55 [place] [address] [email or web address] Primary Infusion Nurse 11/20/23 documented as of this encounter Additional Source Comments The information contained in this document represents components of the legal health record. It is not the complete legal health record.[facility]
--- OUTSIDE RECORDS SUMMARY | 2025-09-16 20:51 | XMS_ITS | Encounter Summary ---
Author Organization [facility] Address [address] [facility] [place] [address] Phone Care Team Providers Care Document Control Associate Name Role Phone Frankie Padron MD Primary Care Provider Saniya Tan MD Unavailable Domenic Goldsmith MD, PhD Unavailable Mary Sanon MD Unavailable [phone] Davina Peraza RN Unavailable [email or web address] Encounter Details Date Type Department Care Team (Late st Contact Info) Description 05/27/2024 Procedure Pass [facility] PERIOPERATIVE DEPT 55 [place] [address] Social History Tobacco Use Types Packs/Day Years [...] 6:00 AM EDT Thea Maldonado RN * [place] Suicide Severity Rating Scale (Screener/Recent Self-Report) Question [...] Contact Info) Description 02/15/2025 Procedure Pass MRI, [facility] Imaging - [address], [address] [place] [address] 08/12/[address], [facility] Imaging - [place] [address] [facility], [address] [place] [address] 08/12/[address], [facility] Imaging - [place] [address] [address] [facility], [address] [place] [address] 08/12/2025 Procedure Pass MRI, [facility] Imaging - [address], [address] [place] [address] 10/14/2025 1:00 PM EST Office Visit [facility] [address] [facility] 9th [place] [address] Bettina Braden MD [address] [place] [address] MARTÍN@[facility] [place] 10/19/2025 3:00 PM EST Infusion [facility] at [address] [address] Hany Leach MD 02/06/2026 10:30 AM EDT Blood Draw [facility] Lab [address] [address] Saniya Tan MD [address] [address] DIALLO@[facility] 02/06/2026 11:[address], [facility] Imaging - [address], [address] [place] [address] Saniya Tan MD [address] [place] [address] DIALLO@[facility] 02/06/2026 12:30 PM EDT Appointment MRI, [facility] - [address], [address] [place] [address] Saniya Tan MD [address] [place] [address] DIALLO@[facility] 02/07/2026 9:30 AM EDT Appointment MRI, [facility] - [address], [address] [place] [address] Domenic Goldsmith MD, PhD [address] [address] MQJUNIOR@[facility] 02/14/2026 11:00 AM EDT Office Visit [facility] 32 [facility], 7th Floor, [address] [place] [address] Saniya Tan MD [address] [address] DIALLO@[facility] 02/14/2026 11:00 AM EDT Office Visit [facility] [address] [facility], 7th Floor, [address] [place] [address] Roxana Ornelas MD 55 [facility] 3 [place] [address] CHIN@[facility] 02/21/2026 10:00 AM EDT Telemedicine - audio only [facility] General & Gastrointestinal Surgery 55 [facility], 4th Floor, [address] [place] [address] Janie Blackmon FNP 55 [facility] 460 [place] [phone] [email or web address] g documented as of this encounter Visit Diagnoses Not on filedocumented in this encounter Care Teams Document Control Associate Relationship Specialty Start Date End Date Frankie Padron MD [address] [place] [address] [place] [address] PCP - General Internal Medicine 07/16/19 Saniya Tan MD 55 [facility] 7E [place] [address] [email or web address]@[email or web address] Primary Oncologist Medical Oncology 12/22/20 Domenic Goldsmith MD, PhD 55 [facility] 7[address] [place] [address] [email or web address] Surgical Oncology 01/11/21 Mary Sanon MD 55 [facility] 3 [place] [address] maria [email or web address] u Radiation Oncology 07/03/22 Davina Peraza, RN [address] [place] [address] [email or web address] Primary Infusion Nurse 11/20/23 documented as of this encounter Additional Source Comments The information contained in this document represents components of the legal health record. It is not the complete legal health record.[facility]
--- OUTSIDE RECORDS SUMMARY | 2025-09-16 20:52 | XMS_ITS | Encounter Summary ---
Author Organization [facility] Address [address] [place] [address] Phone Care Team Providers Care Culinary Intern Name Role Phone Frankie Padron MD Primary Care Provider Saniya Tan MD Unavailable Domenic Goldsmith MD, PhD Unavailable [phone] Robert Lomax MD Unavailable Mary Sanon MD Unavailable [phone] Marcy Garvey RN Unavailable [email or web address] Davina Peraza RN Unavailable [email or web address] Davina Peraza RN Unavailable [email or web address] Encounter Details Date Type Department Care Team (Late st Contact Info) Description 10/19/2021 Procedure Pass [facility], Ct Scan - [address] [address] Social History Tobacco Use Types Packs/Day Years [...] [facility] General Imaging - [place] [address] [facility], [address] [place] [address] 08/12/[address], [facility] General Imaging - [address] [facility], [address] [place] [address] 08/12/[address], [facility] General Imaging - [place] [address] [facility], [address] [place] [address] 08/12/2025 Procedure Pass MRI, [facility] General Imaging - [address] [facility], [address] [place] [address] 10/14/2025 1:00 PM EST Office Visit [facility] 165 [facility] 9th [place] [address] Bettina Braden MD [address] [place] [address] MARTÍN@[facility] 10/19/2025 3:00 PM EST Infusion [facility] at [address] [address] Hany Leach MD 02/06/2026 10:30 AM EDT Blood Draw [facility] Lab [address] [address] Saniya Tan MD [address] [place] [address] DIALLO@[facility] 02/06/2026 11:[address], [facility] General Imaging - [address] [facility], [address] [place] [address] Saniya Tan MD [address] [place] [address] DIALLO@[facility] 02/06/2026 12:30 PM EDT Appointment MRI, [facility] Imaging - [place] 52 [facility], [address] [place] [address] Saniya Tan MD 55 [facility] 7E [place] [address] DIALLO@[facility] 02/07/2026 9:30 AM EDT Appointment MRI, [facility] Imaging - [address], [address] [place] [address] Domenic Goldsmith MD, PhD 55 [facility] 7B [place] [address] JIGAR@[facility] 02/14/2026 11:00 AM EDT Office Visit [facility] 32 [facility], 7th Floor, [address] [place] [address] Saniya Tan MD [address] [place] [address] [address] [place] [address] DIALLO@[facility] 02/14/2026 11:00 AM EDT Office Visit [facility] 32 [facility], 7th Floor, [address] [place] [address] Roxana Ornelas MD [address] [place] [address] MAY 3 [place] [address] CHIN@[facility] 02/21/2026 10:00 AM EDT Telemedicine - audio only [facility] General & Gastrointestinal Surgery 55 [facility], 4th Floor, [address] [place] [address] Janie Blackmon FNP 55 [facility] 460 [place] [phone] [email or web address] g documented as of this encounter Visit Diagnoses Not on filedocumented in this encounter Care Teams Culinary Intern Relationship Specialty Start Date End Date Frankie Padron MD [address] [place] [address] [place] [address] PCP - General Internal Medicine 07/16/19 Saniya Tan MD 55 [facility] YA 7[address] [place], [place] DIALLO@[facility] Primary Oncologist Medical Oncology 12/22/20 Domenic Goldsmith MD, PhD [address] [facility] [address] [place], [place] JIGAR@[facility] Surgical Oncology 01/11/21 Robert Lomax MD [facility] [address] [place] [address] MARCELA@[facility] Cardiothoracic Surgery 07/03/22 08/18/23 Mary Sanon MD 55 [facility] 3 [place] [address] maria [email or web address] Radiation Oncology 07/03/22 Marcy Garvey RN 55 [facility] 3 [place] [address] [email or web address] Primary Infusion Nurse 10/23/23 11/19/23 Davina Peraza RN Associate Infusion Nurse 10/29/23 11/19/23 Davina Peraza RN 55 [place] [address] [email or web address] Primary Infusion Nurse 11/20/23 documented as of this encounter Additional Source Comments The information contained in this document represents components of the legal health record. It is not the complete legal health record.[facility]
--- OUTSIDE RECORDS SUMMARY | 2025-09-16 20:52 | XMS_ITS | Encounter Summary ---
Author Organization [facility] Address [address] [place] [address] Phone Care Team Providers Care Director Title Name Role Phone Frankie Padron MD Primary Care Provider Saniya Tan MD Unavailable Domenic Goldsmith MD, PhD Unavailable [phone] Mary Sanon MD Unavailable [phone] Davina Peraza RN Unavailable [email or web address] Encounter Details Date Type Department Care Team (Late st Contact Info) Description 06/29/2024 Procedure Pass MRI, [facility] Imaging - [address], [address] [place] [address] Social History Tobacco Use Types [...] Info) Description 02/15/2025 Procedure Pass MRI, [facility] Imaging - [address], [address] [place] [address] 08/12/[address], [facility] Imaging - [address], [address] [place] [address] 08/12/[address], [facility] Imaging - [address], [address] [place] [address] 08/12/2025 Procedure Pass MRI, [facility] Imaging - [address] [facility], [address] [place] [address] 10/14/2025 1:00 PM EST Office Visit [facility] [address] 9th [place] [address] Bettina Braden MD 55 [facility] 4 [place] [address] MARTÍN@[email or web address] 10/19/2025 3:00 PM EST Infusion [facility] [place] [address] [place] [address] Hany Leach MD 02/06/2026 10:30 AM EDT Blood Draw [facility] Lab [address] [place] [address] Saniya Tan MD 55 [facility] YA 7E [place] [address] DIALLO@[email or web address] 02/06/2026 11:[address], [facility] Imaging - [address], [address] [place] [address] Saniya Tan MD 55 [facility] 7E [place] [address] DIALLO@[email or web address] 02/06/2026 12:30 PM EDT Appointment MRI, [facility] Imaging - [address], [address] [place] [address] Saniya Tan MD 55 [facility] 7E [place] [address] DIALLO@[email or web address] 02/07/2026 9:30 AM EDT Appointment MRI, [facility] Imaging - [address], [address] [place] [address] Domenic Goldsmith MD, PhD 55 [facility] 7B [place] [address] [email or web address] 02/14/2026 11:00 AM EDT Office Visit [facility], 7th Floor, [address] [place] [address] Saniya Tan MD 55 [facility] 7E [place] [address] DIALLO@[email or web address] 02/14/2026 11:00 AM EDT Office Visit [facility] 32 [facility], 7th Floor, [address] [place] [address] Roxana Ornelas MD 55 [facility] 3 [place] [address] CHIN@[email or web address] 02/21/2026 10:00 AM EDT Telemedicine - audio only [facility] General & Gastrointestinal Surgery 55 [facility], 4th Floor, [address] [place] [address] Janie Blackmon FNP 55 [facility] 460 [place] [phone] [email or web address] g documented as of this encounter Visit Diagnoses Not on filedocumented in this encounter Care Teams Director Title Relationship Specialty Start Date End Date Frankie Padron MD [address] [place] [address] [place] [address] PCP - General Internal Medicine 07/16/19 Saniya Tan MD 55 [facility] 7E [place] [address] DIALLO@[email or web address] Primary Oncologist Medical Oncology 12/22/20 Domenic Goldsmith MD, PhD [address] [place] [address] 7[address] [place] [address] JIGAR@[facility] Surgical Oncology 01/11/21 Mary Sanon MD 55 [facility] 3 [place] [address] maria [email or web address] u Radiation Oncology 07/03/22 Davina Peraza, RACHEL 55 [place] [address] [email or web address] Primary Infusion Nurse 11/20/23 documented as of this encounter Additional Source Comments The information contained in this document represents components of the legal health record. It is not the complete legal health record.[facility]
--- OUTSIDE RECORDS SUMMARY | 2025-09-16 20:52 | XMS_ITS | Encounter Summary ---
Author Organization [facility] Address [address] [place] [address] Phone Care Team Providers Care Activities Assistant Name Role Phone Frankie Padron MD Primary Care Provider Saniya Tan MD Unavailable Domenic Goldsmith MD, PhD Unavailable [phone] Mary Sanon MD Unavailable [phone] Davina Peraza RN Unavailable [email or web address] Encounter Details Date Type Department Care Team (Late st Contact Info) Description 08/26/[address] [facility] - RF/IR [address] [place] [address] Social History Tobacco Use Types Packs/Day Years [...] Pass MRI, [facility] Imaging - [address] [facility], [address] [place] [address] 08/12/[address], [facility] Imaging - [address] [facility], [address] [place] [address] 08/12/[address], [facility] Imaging - [address] [facility], [address] [place] [address] 08/12/2025 Procedure Pass MRI, [facility] [place] [address] [facility], [address] [place] [address] 10/14/2025 1:00 PM EST Office Visit [facility] [address] 9th [place] [address] Bettina Braden MD 55 [facility] 4 [place] [address] MARTÍN@[facility] 10/19/2025 3:[address] [facility] [place] 30 [place] [address] Hany Leach MD 02/06/2026 10:[address] [facility] [address] [place] [address] Saniya Tan MD 55 [facility] 7[address] [place] [address] DIALLO@[facility] 02/06/2026 11:[address] - [address], [address] [place] [address] Saniya Tan MD [address] [address] DIALLO@[facility] 02/06/2026 12:30 PM EDT Appointment MRI, [facility] Imaging - [address], [address] [place] [address] Saniya Tan MD [address] [address] DIALLO@[facility] 02/07/2026 9:30 AM EDT Appointment MRI, [facility] - [address], [address] [place] [address] Domenic Goldsmith MD, PhD [address] [address] [email or web address] 02/14/2026 11:00 AM EDT Office Visit [facility] 32 [facility], 7th Floor, [address] [place] [address] Saniya Tan MD [address] [place] [address] 7[address] [place] [address] DIALLO@[facility] 02/14/2026 11:00 AM EDT Office Visit [facility] 32 [facility], 7th Floor, [address] [place] [address] Roxana Ornelas MD 55 [facility] 3 [place] [address] [email or web address]@[facility] 02/21/2026 10:00 AM EDT Telemedicine - audio only [facility] General & Gastrointestinal Surgery 55 [facility], 4th Floor, [address] [place] [address] Janie Blackmon FNP 55 [facility] 460 [place] [address] [email or web address] g documented as of this encounter Visit Diagnoses Not on filedocumented in this encounter Care Teams Activities Assistant Relationship Specialty Start Date End Date Frankie Padron MD [address] [place] [address] [place] [address] PCP - General Internal Medicine 07/16/19 Saniya Tan MD 55 [facility] 7[address] [place] [address] DIALLO@[email or web address] Primary Oncologist Medical Oncology 12/22/20 Domenic Goldsmith MD, PhD 55 [facility] 7B [place] [address] [email or web address] Surgical Oncology 01/11/21 Mary Sanon MD 55 [facility] 3 [place] [address] maria [email or web address] u Radiation Oncology 07/03/22 Davina Peraza, RACHEL 55 [place] [address] [email or web address] Primary Infusion Nurse 11/20/23 documented as of this encounter Additional Source Comments The information contained in this document represents components of the legal health record. It is not the complete legal health record.[facility]
--- OUTSIDE RECORDS SUMMARY | 2025-09-16 20:52 | XMS_ITS | Encounter Summary ---
Author Organization [facility] Address [address] [facility] [address] [place] [address] Phone Care Team Providers Care Tree Marker Name Role Phone Frankie Padron MD Primary Care Provider Saniya Tan MD Unavailable Domenic Goldsmith MD, PhD Unavailable [phone] Robert Lomax MD Unavailable [phone] Mary Sanon MD Unavailable Marcy Garvey RN Unavailable [email or web address] Davina Peraza RN Unavailable [email or web address] Davina Peraza RN Unavailable [email or web address] Encounter Details Date Type Department Care Team (Late st Contact Info) Description 02/25/2022 Procedure Pass [facility] PERIOPERATIVE DEPT [address] [place] [address] Social History Tobacco Use Types Packs/Day Years [...] MRI, [facility] Imaging - [place] [address] [facility], [address] [place] [address] 08/12/[address], [facility] Imaging - [place] [address] [facility], [address] [place] [address] 08/12/[address], [facility] Imaging - [place] [address] [facility], [address] [place] [address] 08/12/2025 Procedure Pass MRI, [facility] General Imaging - [place] [address] [facility], [address] [place] [address] 10/14/2025 1:00 PM EST Office Visit [facility] [address] [facility] 9th [place] [address] Bettina Braden MD [address] [place] [address] 4 [place] [address] MARTÍN@[facility] 10/19/2025 3:00 PM EST Infusion [facility] Cancer [facility] at [address] [address] Hany Leach MD 02/06/2026 10:30 AM EDT Blood Draw [facility] Lab [address] [place] [address] Saniya Tan MD [address] [place] [address] DIALLO@[facility] 02/06/2026 11:[address], [facility] General Imaging - [place] 52 [facility], [address] [place] [address] Saniya Tan MD [address] [place] [address] 7[address] [place] [address] DIALLO@[facility] 02/06/2026 12:30 PM EDT Appointment MRI, [facility] General Imaging - [place] [address] [facility], [address] [place] [address] Saniya Tan MD 55 [facility] 7E [place] [address] DIALLO@[facility] 02/07/2026 9:30 AM EDT Appointment MRI, [facility] Imaging - [place] [address] [facility], [address] [place] [address] Domenic Goldsmith MD, PhD 55 [facility] 7B [place] [address] JIGAR@[facility] 02/14/2026 11:00 AM EDT Office Visit [facility] 32 [facility], 7th Floor, [address] [place] [address] Saniya Tan MD [address] [place] [address] 7[address] [place] [address] DIALLO@[facility] 02/14/2026 11:00 AM EDT Office Visit [facility] 32 [facility], 7th Floor, [address] [place] [address] Roxana Ornelas MD 55 [facility] 3 [place] [address] CHIN@[facility] 02/21/2026 10:00 AM EDT Telemedicine - audio only [facility] General & Gastrointestinal Surgery 55 [facility], 4th Floor, [address] [place] [address] aJnie Blackmon FNP 55 [facility] 460 [place] [phone] [email or web address] g documented as of this encounter Visit Diagnoses Not on filedocumented in this encounter Care Teams Tree Marker Relationship Specialty Start Date End Date Frankie Padron MD [address] [place] [address] [place] [address] PCP - General Internal Medicine 07/16/19 Saniya Tan MD 55 [facility] YA 7E [place] [address] DIALLO@[email or web address] Primary Oncologist Medical Oncology 12/22/20 Domenic Goldsmith MD, PhD [address] [facility] 7B [place] [address] JIGAR@[facility] Surgical Oncology 01/11/21 Robert Lomax MD 55 [facility] 7B [place] [address] [email or web address]@[email or web address] Cardiothoracic Surgery 07/03/22 08/18/23 Mary Sanon MD 55 [facility] 3 [place] [address] maria [email or web address] Radiation Oncology 07/03/22 Marcy Garvey RN 55 [facility] 3 [place] [address] [email or web address] Primary Infusion Nurse 10/23/23 11/19/23 Davina Peraza RN Associate Infusion Nurse 10/29/23 11/19/23 Davina Peraza RN 55 [place] [address] [email or web address] Primary Infusion Nurse 11/20/23 documented as of this encounter Additional Source Comments The information contained in this document represents components of the legal health record. It is not the complete legal health record.[facility]
--- OUTSIDE RECORDS SUMMARY | 2025-09-16 20:52 | XMS_ITS | Encounter Summary ---
Author Organization [facility] Address [address] [place] [address] Phone Care Team Providers Care Produce Team Lead Name Role Phone Frankie Padron MD Primary Care Provider Saniya Tan MD Unavailable Domenic Goldsmith MD, PhD Unavailable [phone] Mary Sanon MD Unavailable [phone] Davina Peraza RN Unavailable [email or web address] Encounter Details Date Type Department Care Team (Late st Contact Info) Description 06/29/[address], [facility] Imaging - [address], [address] [place] [address] Social History Tobacco Use Types [...] Contact Info) Description 02/15/2025 Procedure Pass MRI, [facility] Imaging - [address], [address] [place] [address] 08/12/[address], [facility] Imaging - [address], [address] [place] [address] 08/12/[address], [facility] Imaging - [address] [place] [address] 08/12/2025 Procedure Pass MRI, [facility] Imaging - [address] [facility], [address] [place] [address] 10/14/2025 1:00 PM EST Office Visit [facility] [address] 9th [place] [address] Bettina Braden MD 55 [facility] 4 [place] [address] MARTÍN@[facility] 10/19/2025 3:00 PM EST Infusion [facility] [place] [address] [place] [address] Hany Leach MD 02/06/2026 10:30 AM EDT Blood Draw [facility] Lab [address] [place] [address] Saniya Tan MD 55 [facility] YA 7E [place] [address] DIALLO@[email or web address] 02/06/2026 11:[address], [facility] Imaging - [address] [place] [address] Saniya Tan MD 55 [facility] 7[address] [place] [address] DIALLO@[facility] 02/06/2026 12:30 PM EDT Appointment MRI, [facility] Imaging - [address] [place] [address] Saniya Tan MD 55 [facility] 7[address] [place] [address] DIALLO@[facility] 02/07/2026 9:30 AM EDT Appointment MRI, [facility] Imaging - [address], [address] [place] [address] Domenic Goldsmith MD, PhD 55 [facility] 7[address] [place] [address] [email or web address]@[facility] 02/14/2026 11:00 AM EDT Office [facility] 32 [facility], 7th Floor, [address] [place] [address] Saniya Tan MD 55 [facility] 7[address] [place] [address] DIALLO@[facility] 02/14/2026 11:00 AM EDT Office Visit [facility] 32 [facility], 7th Floor, [address] [place] [address] Roxana Ornelas MD 55 [facility] 3 [place] [address] CHIN@[facility] 02/21/2026 10:00 AM EDT Telemedicine - audio only [facility] General & Gastrointestinal Surgery 55 [facility], 4th Floor, [address] [place] [address] Janie Blackmon FNP 55 [facility] 460 [place] [phone] [email or web address] g documented as of this encounter Visit Diagnoses Not on filedocumented in this encounter Care Teams Produce Team Lead Relationship Specialty Start Date End Date Frankie Padron MD [address] [place] [address] [place] [address] PCP - General Internal Medicine 07/16/19 Saniya Tan MD 55 [facility] 7E [place] [address] DIALLO@[facility] Primary Oncologist Medical Oncology 12/22/20 Domenic Goldsmith MD, PhD [address] [place] [address] 7[address] [place] [address] JIGAR@[facility] Surgical Oncology 01/11/21 Mary Sanon MD 55 [facility] 3 [place] [address] maria [email or web address] u Radiation Oncology 07/03/22 Davina Peraza, RACHEL 55 [place] [address] [email or web address] Primary Infusion Nurse 11/20/23 documented as of this encounter Additional Source Comments The information contained in this document represents components of the legal health record. It is not the complete legal health record.[facility]
--- OUTSIDE RECORDS SUMMARY | 2025-09-16 20:52 | XMS_ITS | Encounter Summary ---
Author Organization [facility] Address [address] [place] [address] Phone Care Team Providers Care Editor Farm Journal Name Role Phone Frankie Padron MD Primary Care Provider Saniya Tan MD Unavailable Domenic Goldsmith MD, PhD Unavailable [phone] Mary Sanon MD Unavailable [phone] Davina Peraza RN Unavailable [email or web address] Encounter Details Date Type Department Care Team (Late st Contact Info) Description 06/29/[address], [facility] Imaging - [address] [place] [address] Social History Tobacco Use Types [...] Procedure Pass MRI, [facility] - [address] [place] [address] 08/12/[address], [facility] - [address] [place] [address] 08/12/[address], [facility] - [address] [place] [address] 08/12/2025 Procedure Pass MRI, [facility] - [address] [facility], [address] [place] [address] 10/14/2025 1:00 PM EST Office Visit [facility] [address] 9th [place] [address] Bettina Braden MD 55 [facility] 4 [place] [address] MARTÍN@[facility] 10/19/2025 3:00 PM EST Infusion [facility] [place] [address] [place] [address] Hany Leach MD 02/06/2026 10:30 AM EDT Blood Draw [facility] Lab [address] [place] [address] Saniya Tan MD 55 [facility] YA 7E [place] [address] DIALLO@[email or web address] 02/06/2026 11:[address], [facility] General Imaging - [address] [place] [address] Saniya Tan MD 55 [facility] 7E [place] [address] DIALLO@[facility] 02/06/2026 12:30 PM EDT Appointment MRI, [facility] - [address] [place] [address] Saniya Tan MD 55 [facility] 7E [place] [address] DIALLO@[facility] 02/07/2026 9:30 AM EDT Appointment MRI, [facility] - [address] [place] [address] Domenic Goldsmith MD, PhD 55 [facility] [place] [facility] 7B [place] [address] MQADATomasz@[facility] 02/14/2026 11:00 AM EDT Office Visit [facility] 32 [facility], 7th Floor, [address] [place] [address] Saniya Tan MD 55 [facility] 7E [place] [address] DIALLO@[facility] 02/14/2026 11:00 AM EDT Office Visit [facility] 32 [facility], 7th Floor, [address] [place] [address] Roxana Ornelas MD 55 [facility] 3 [place] [address] CHIN@[facility] 02/21/2026 10:00 AM EDT Telemedicine - audio only [facility] General & Gastrointestinal Surgery 55 [facility], 4th Floor, [address] [place] [address] Janie Blackmon FNP 55 [facility] 460 [place] [phone] [email or web address] g documented as of this encounter Visit Diagnoses Not on filedocumented in this encounter Care Teams Editor Farm Journal Relationship Specialty Start Date End Date Frankie Padron MD [address] [place] [address] [place] [address] PCP - General Internal Medicine 07/16/19 Saniya Tan MD 55 [facility] 7E [place] [address] DIALLO@[email or web address] Primary Oncologist Medical Oncology 12/22/20 Domenic Goldsmith MD, PhD [address] [place] [address] [address] [place] [address] JIGAR@[facility] Surgical Oncology 01/11/21 Mary Sanon MD 55 [facility] 3 [place] [address] maria [email or web address] u Radiation Oncology 07/03/22 Davina Peraza, RACHEL 55 [place] [address] [email or web address] Primary Infusion Nurse 11/20/23 documented as of this encounter Additional Source Comments The information contained in this document represents components of the legal health record. It is not the complete legal health record.[facility]
--- OUTSIDE RECORDS SUMMARY | 2025-09-16 20:52 | XMS_ITS | Encounter Summary ---
Author Organization [facility] Address [address] [facility] [address] [place] [address] Phone Care Team Providers Care Specialist Wound Care Name Role Phone Frankie Padron MD Primary Care Provider Saniya Tan MD Unavailable Domenic Goldsmith MD, PhD Unavailable [phone] Robert Lomax MD Unavailable [phone] Mary Sanon MD Unavailable Marcy Garvey RN Unavailable [email or web address] Davina Peraza RN Unavailable [email or web address] Davina Peraza RN Unavailable [email or web address] Encounter Details Date Type Department Care Team (Late st Contact Info) Description 06/01/2021 Procedure Pass [facility], [address] [address] Social History Tobacco Use Types Packs/Day Years [...] Contact Info) Description 02/15/2025 Procedure Pass MRI, [facility] [place] [address] [facility], [address] [place] [address] 08/12/[address], [facility] [place] [address] [facility], [address] [place] [address] 08/12/[address], [facility] [place] [address] [facility], [address] [place] [address] 08/12/2025 Procedure Pass MRI, [facility] - [place] [address] [facility], [address] [place] [address] 10/14/2025 1:00 PM EST Office Visit [facility] [address] [facility] 9th [place] [address] Bettina Braden MD [address] [place] [address] MARTÍN@[facility] 10/19/2025 3:00 PM EST Infusion [facility] at [address] [address] Hany Leach MD 02/06/2026 10:30 AM EDT Blood Draw [facility] [place] [facility] [place] [address] Saniya Tan MD [address] [place] [address] DIALLO@[facility] 02/06/2026 11:[address], [facility] - [address] [facility], [address] [place] [address] Saniya Tan MD [address] [place] [address] DIALLO@[facility] 02/06/2026 12:30 PM EDT Appointment MRI, [facility] [place] 52 [facility], [address] [place] [address] Saniya Tan MD 55 [facility] 7E [place] [address] DIALLO@[facility] 02/07/2026 9:30 AM EDT Appointment MRI, [facility] - [place] 52 [facility], [address] [place] [address] Domenic Goldsmith MD, PhD 55 [facility] 7B [place] [address] JIGAR@[email or web address] 02/14/2026 11:00 AM EDT Office Visit [facility] [address], 7th Floor, [address] [place] [address] Saniya Tan MD [address] [place] [address] 7[address] [place] [address] DIALLO@[facility] 02/14/2026 11:00 AM EDT Office Visit [facility] [address] [facility], 7th Floor, [address] [place] [address] Roxana Ornelas MD 55 [facility] MAY 3 [place] [address] CHIN@[facility] 02/21/2026 10:00 AM EDT Telemedicine - audio only [facility] General & Gastrointestinal Surgery 55 [facility], 4th Floor, [address] [place] [address] Janie lBackmon FNP 55 [facility] 460 [place] [phone] [email or web address] g documented as of this encounter Visit Diagnoses Not on filedocumented in this encounter Care Teams Specialist Wound Care Relationship Specialty Start Date End Date Frankie Padron MD [address] [place] [address] [place] [address] PCP - General Internal Medicine 07/16/19 Saniya Tan MD [address] [facility] YA [address]E [place] DIALLO@[email or web address] Primary Oncologist Medical Oncology 12/22/20 Domenic Goldsmith MD, PhD [address] [facility] [address] [place] [address] JIGAR@[email or web address] Surgical Oncology 01/11/21 Robert Lomax MD [facility] [address] [place] [address] MARCELA@[facility] Cardiothoracic Surgery 07/03/22 08/18/23 Mary Sanon MD 55 [facility] 3 [place] [address] maria [email or web address] Radiation Oncology 07/03/22 Marcy Garvey RN 55 [facility] 3 [place] [address] [email or web address] Primary Infusion Nurse 10/23/23 11/19/23 Davina Peraza RN Associate Infusion Nurse 10/29/23 11/19/23 Davina Peraza RN 55 [place] [address] [email or web address] Primary Infusion Nurse 11/20/23 documented as of this encounter Additional Source Comments The information contained in this document represents components of the legal health record. It is not the complete legal health record.[facility]
--- OUTSIDE RECORDS SUMMARY | 2025-09-16 20:52 | XMS_ITS | Encounter Summary ---
Author Organization [facility] Address [address] [place] [address] [place] [address] Phone Care Team Providers Care Wash Driller Helper Name Role Phone Frankie Padron MD Primary Care Provider Saniya Tan MD Unavailable Domenic Goldsmith MD, PhD Unavailable [phone] Robert Lomax MD Unavailable Mary Sanon MD Unavailable Marcy Garvey RN Unavailable [email or web address] Davina Peraza RN Unavailable [email or web address] Davina Peraza RN Unavailable [email or web address] Encounter Details Date Type Department Care Team (Late st Contact Info) Description 07/23/2019 Procedure Pass MRI, [facility] [address] [place] [address] Social History Tobacco Use Types Packs/Day Years [...] Contact Info) Description 02/15/2025 Procedure Pass MRI, [facility] [address] [facility], [address] [place] [address] 08/12/[address], [facility] - [place] [facility], [address] [place] [address] 08/12/[address], [facility] - [place] [address] [facility], [address] [place] [address] 08/12/2025 Procedure Pass MRI, [facility] Imaging - [address] [facility], [address] [place] [address] 10/14/2025 1:00 PM EST Office Visit [facility] [address] 9th [place] [address] Bettina Braden MD [address] [place] [address] MARTÍN@[facility] 10/19/2025 3:00 PM EST Infusion [facility] at [address] [address] Hany Leach MD 02/06/2026 10:30 AM EDT Blood Draw [facility] [address] [place] [address] Saniya Tan MD [address] [place] [address] DIALLO@[email or web address] 02/06/2026 11:[address], [facility] - [address] [facility], [address] [place] [address] Saniya Tan MD [address] [place] [address] DIALLO@[facility] 02/06/2026 12:30 PM EDT Appointment MRI, [facility] Imaging - [address] [facility], [address] [place] [address] Saniya Tan MD 55 [facility] 7E [place] [address] DIALLO@[email or web address] 02/07/2026 9:30 AM EDT Appointment MRI, [facility] - [address], [address] [place] [address] Domenic Goldsmith MD, PhD 55 [facility] 7[address] [place] [address] [email or web address] 02/14/2026 11:00 AM EDT Office Visit [facility] 32 [facility], 7th Floor, [address] [place] [address] Saniya Tan MD 55 [facility] 7[address] [place] [address] DIALLO@[facility] 02/14/2026 11:00 AM EDT Office Visit [facility] 32 [facility], 7th Floor, [address] [place] [address] Roxana Ornelas MD 55 [facility] 3 [place] [address] CHIN@[email or web address] 02/21/2026 10:00 AM EDT Telemedicine - audio only [facility] General & Gastrointestinal Surgery 55 [facility], 4th Floor, [address] [place] [address] Janie Blackmon FNP 55 [facility] 460 [place] [phone] [email or web address] g documented as of this encounter Visit Diagnoses Not on filedocumented in this encounter Additional Health Concerns Infection Onset Date Last Indicated Resolved Time Influenza 11/01/2019 11/01/2019 11/08/2019 1:23 AM EST documented as of this encounter Care Teams Wash Driller Helper Relationship Specialty Start Date End Date Frankie Padron MD [address] [place] [address] [place] [address] PCP - General Internal Medicine 07/16/19 Saniya Tan MD 55 [facility] YA 7[address] [place] [address] DIALLO@[email or web address] Primary Oncologist Medical Oncology 12/22/20 Domenic Goldsmith MD, PhD [address] [place] [address] [email or web address] Surgical Oncology 01/11/21 Robert Lomax MD [address] [place] [address] [email or web address]@[email or web address] Cardiothoracic Surgery 07/03/22 08/18/23 Mary Sanon MD 55 [facility] 3 [place] [address] [email or web address] [email or web address] Radiation Oncology 07/03/22 Marcy Garvey RN 55 [facility] 3 [place] [address] [email or web address] Primary Infusion Nurse 10/23/23 11/19/23 Davina Peraza RN Associate Infusion Nurse 10/29/23 11/19/23 Davina Peraza RN 55 [place] [address] [email or web address] Primary Infusion Nurse 11/20/23 documented as of this encounter Additional Source Comments The information contained in this document represents components of the legal health record. It is not the complete legal health record.[facility]
--- OUTSIDE RECORDS SUMMARY | 2025-09-16 20:52 | XMS_ITS | Encounter Summary ---
Author Organization [facility] Address [address] [place] [address] Phone Care Team Providers Care Solutions Architect Consultant Name Role Phone Frankei Padron MD Primary Care Provider Saniya Tan MD Unavailable Domenic Goldsmith MD, PhD Unavailable [phone] Mary Sanon MD Unavailable [phone] Davina Peraza RN Unavailable [email or web address] Encounter Details Date Type Department Care Team (Late st Contact Info) Description 07/26/2024 Procedure Pass [facility] [address] [place] [address] Social History Tobacco Use Types [...] Procedure Pass MRI, [facility] - [address], [address] [place] [address] 08/12/[address], [facility] - [address] [facility], [address] [place] [address] 08/12/[address], [facility] - [address], [address] [place] [address] 08/12/2025 Procedure Pass MRI, [facility] - [address] [facility], [address] [place] [address] 10/14/2025 1:00 PM EST Office Visit [facility] [address] 9th [place] [address] Bettina Braden MD 55 [facility] 4 [place] [address] [email or web address]@[facility] 10/19/2025 3:00 PM EST Infusion [facility] 30 [place] [address] Hany Leach MD 02/06/2026 10:30 AM EDT Blood Draw [facility] Lab [address] [place] [address] Saniya Tan MD 55 [facility] 7E [place] [address] DIALLO@[facility] 02/06/2026 11:[address], [facility] General Imaging - [address], [address] [place] [address] Saniya Tan MD 55 [facility] 7E [place] [address] [email or web address]@[facility] 02/06/2026 12:30 PM EDT Appointment MRI, [facility] General Imaging - [address], [address] [place] [address] Saniya Tan MD 55 [facility] 7E [place] [address] DIALLO@[facility] 02/07/2026 9:30 AM EDT Appointment MRI, [facility] - [address], [address] [place] [address] Domenic Goldsmith MD, PhD 55 [facility] 7B [place] [address] [email or web address] 02/14/2026 11:00 AM EDT Office [facility] [place] [facility] 32 [facility], 7th Floor, [address] [place] [address] Saniya Tan MD 55 [facility] 7E [place] [address] DIALLO@[facility] 02/14/2026 11:00 AM EDT Office Visit [facility] [place] [facility] 32 [facility], 7th Floor, [address] [place] [address] Roxana Ornelas MD 55 [facility] 3 [place] [address] CHIN@[facility] 02/21/2026 10:00 AM EDT Telemedicine - audio only [facility] General & Gastrointestinal Surgery 55 [facility], 4th Floor, [address] [place] [address] Janie Blackmon FNP 55 [facility] 460 [place] [phone] [email or web address] g documented as of this encounter Visit Diagnoses Not on filedocumented in this encounter Care Teams Solutions Architect Consultant Relationship Specialty Start Date End Date Frankie Padron MD [address] [place] [address] [place] [address] PCP - General Internal Medicine 07/16/19 Saniya Tan MD 55 [facility] 7E [place] [address] DAILLO@[email or web address] Primary Oncologist Medical Oncology 12/22/20 Domenic Goldsmith MD, PhD 55 [facility] 7B [place] [address] [email or web address] Surgical Oncology 01/11/21 Mary Sanon MD 55 [facility] 3 [place] [address] maria [email or web address].[email or web address] u Radiation Oncology 07/03/22 Davina Peraza, RACHEL 55 [place] [address] [email or web address] Primary Infusion Nurse 11/20/23 documented as of this encounter Additional Source Comments The information contained in this document represents components of the legal health record. It is not the complete legal health record.[facility]
--- OUTSIDE RECORDS SUMMARY | 2025-09-16 20:52 | XMS_ITS | Encounter Summary ---
Author Organization [facility] Address [address] [facility] [address] [place] [address] Phone Care Team Providers Care Editor Greeting Card Name Role Phone Frankie Padron MD Primary Care Provider Saniya Tan MD Unavailable Domenic Goldsmith MD, PhD Unavailable [phone] Mary Sanon MD Unavailable [phone] Davina Peraza RN Unavailable [email or web address] Encounter Details Date Type Department Care Team (Late st Contact Info) Description 07/22/2024 Ancillary Orders [address] [address] Emigdio Hays MD [address] [place] [address] MACHO@[email or web address] Pain (Primary Dx) Social History Tobacco [...] Contact Info) Description 02/15/2025 Procedure Pass MRI, [facility] - [address], [address] [place] [address] 08/12/[address], [facility] - [address], [address] [place] [address] 08/12/[address], [facility] - [address] [place] [address] 08/12/2025 Procedure Pass MRI, [facility] - [address] [place] [address] 10/14/2025 1:00 PM EST Office [facility] 165 [facility] 9th [place] [address] Bettina Braden MD [address] [place] [address] MARTÍN@[facility] 10/19/2025 3:00 PM EST Infusion [facility] at [address] [address] Hany Leach MD 02/06/2026 10:30 AM EDT Blood Draw [facility] [address] [place] [address] Saniya Tan MD [address] [address] DIALLO@[facility] 02/06/2026 11:[address], [facility] Imaging - [address], [address] [place] [address] Saniya Tan MD [address] [address] DIALLO@[facility] 02/06/2026 12:30 PM EDT Appointment MRI, [facility] - [address], [address] [place] [address] Saniya Tan MD [address] [place] [address] DIALLO@[facility] 02/07/2026 9:30 AM EDT Appointment MRI, [facility] Imaging - [address], [address] [place] [address] Domenic Goldsmith MD, PhD [address] [address] JIGAR@[facility] 02/14/2026 11:00 AM EDT Office Visit [facility] 32 [facility], 7th Floor, [address] [place] [address] Saniya Tan MD [address] [address] DIALLO@[facility] 02/14/2026 11:00 AM EDT Office Visit [facility] 32 [facility], 7th Floor, [address] [place] [address] Roxana Onrelas MD 55 [facility] MAY 3 [place] [address] CHIN@[facility] 02/21/2026 10:00 AM EDT Telemedicine - audio only [facility] & Gastro[facility] Surgery 55 [facility], 4th Floor, [address] [place] [address] Janie Blackmon FNP 55 [facility] 460 [place] [phone] [email or web address] g documented as of this encounter Results * [place] Fluoroscopy Guidance - No Charge (07/26/2024 9:39 AM EDT) 07/26/2024 3:19 PM EDT Narrative [facility] - 07/26/2024 3:19 PM EDT Dose (mGy): 0.578968 Dose Area Product (DAP): [id number] Dose Area Product (DAP) Units: mGy.m2 Fluoro time (min): 00:03 Number of Spot Films: 2 Procedure Note Critical Care Rn, Dictation - 07/26/2024 Dose (mGy): 0.649813 Dose Area Product (DAP): [id number] Dose Area Product (DAP) Units: mGy.m2 Fluoro time (min): 00:03 Number of Spot Films: 2 J Keith Hays MD IMG [place] EXAMS Final Re sult [facility] [address] [place] [address] documented in this encounter Visit Diagnoses Diagnosis Pain- Primary Generalized pain Pain Generalized pain documented in this encounter Care Teams Editor Greeting Card Relationship Specialty Start Date End Date Frankie Padron MD [address] [place] [address] [place] [address] PCP - General Internal Medicine 07/16/19 Saniya Tan MD 55 [facility] YAW 7E [place] [address] DIALLO@[email or web address] Primary Oncologist Medical Oncology 12/22/20 Domenic Goldsmith MD, PhD 55 [facility] 7B [place] [address] [email or web address] Surgical Oncology 01/11/21 Mary Sanon MD 55 [facility] 3 [place] [address] maria [email or web address] u Radiation Oncology 07/03/22 Davina Peraza, RN 55 [place] [address] [email or web address] Primary Infusion Nurse 11/20/23 documented as of this encounter Additional Source Comments The information contained in this document represents components of the legal health record. It is not the complete legal health record.[facility]
--- OUTSIDE RECORDS SUMMARY | 2025-09-16 20:52 | XMS_ITS | Encounter Summary ---
Author Organization [facility] Address [address] [facility] [address] [place] [address] Phone Care Team Providers Care Underground Foreman Name Role Phone Frankie Padron MD Primary Care Provider Saniya Tan MD Unavailable Domenic Goldsmith MD, PhD Unavailable [phone] Robert Lomax MD Unavailable [phone] Mary Sanon MD Unavailable Marcy Garvey RN Unavailable [email or web address] Davina Peraza RN Unavailable [email or web address] Davina Peraza RN Unavailable [email or web address] Encounter Details Date Type Department Care Team (Late st Contact Info) Description 05/07/2022 Procedure Pass [facility] Imaging - RF/IR [address] [place] [address] Social History Tobacco Use Types Packs/Day Years [...] Contact Info) Description 02/15/2025 Procedure Pass MRI, [facility] [place] [address] [facility], [address] [place] [address] 08/12/[address], [facility] [place] [address] [facility], [address] [place] [address] 08/12/[address], [facility] [place] [address] [facility], [address] [place] [address] 08/12/2025 Procedure Pass MRI, [facility] - [place] [address] [facility], [address] [place] [address] 10/14/2025 1:00 PM EST Office Visit [facility] [address] [facility] 9th [place] [address] Bettina Braden MD [address] [place] [address] 4 [place] [address] [email or web address]@[email or web address] 10/19/2025 3:00 PM EST Infusion [facility] at [address] [address] Hany Leach MD 02/06/2026 10:30 AM EDT Blood Draw [facility] Lab [address] [place] [address] Saniya Tan MD [address] [place] [address] DIALLO@[email or web address] 02/06/2026 11:[address], [facility] [place] [address] [facility], [address] [place] [address] Saniya Tan MD [address] [place] [address] [address] [place] [address] DIALLO@[facility] 02/06/2026 12:30 PM EDT Appointment MRI, [facility] [place] [address] [facility], [address] [place] [address] Saniya Tan MD [address] [facility] [address] [place] [address] DIALLO@[email or web address] 02/07/2026 9:30 AM EDT Appointment MRI, [facility] [place] [address] [facility], [address] [place] [address] Domenic Goldsmith MD, PhD [address] [facility] [address] [place] [address] JIGAR@[facility] 02/14/2026 11:00 AM EDT Office Visit [facility] [address] [facility], 7th Floor, [address] [place] [address] Saniya Tan MD [address] [place] [address] [address] [place] [address] DIALLO@[email or web address] 02/14/2026 11:00 AM EDT Office Visit [facility] [address] [facility], 7th Floor, [address] [place] [address] Roxana Ornelas MD 55 [facility] MAY 3 [place] [address] CHIN@[email or web address] 02/21/2026 10:00 AM EDT Telemedicine - audio only [facility] General & Gastrointestinal Surgery [address] [facility], 4th Floor, [address] [place] [address] Janie Blackmon FNP [address] [facility] 460 [place] [phone] [email or web address] g documented as of this encounter Visit Diagnoses Not on filedocumented in this encounter Care Teams Underground Foreman Relationship Specialty Start Date End Date Frankie Padron MD [address] [place] [address] [place] [address] PCP - General Internal Medicine 07/16/19 Saniya Tan MD 55 [facility] [address] [place] [address] [email or web address]@[email or web address] Primary Oncologist Medical Oncology 12/22/20 Domenic Goldsmith MD, PhD [address] [facility] [address]B [place] [address] [email or web address] Surgical Oncology 01/11/21 Robert Lomax MD [address] [facility] [address] [place] [address] [email or web address] [email or web address] Cardiothoracic Surgery 07/03/22 08/18/23 Mary Sanon MD 55 [facility] 3 [place] [address] maria [email or web address] Radiation Oncology 07/03/22 Marcy Garvey RN [address] [facility] 3 [place] [address] [email or web address] Primary Infusion Nurse 10/23/23 11/19/23 Davina Peraza RN Associate Infusion Nurse 10/29/23 11/19/23 Davina Peraza RN 55 [place] [address] [email or web address] Primary Infusion Nurse 11/20/23 documented as of this encounter Additional Source Comments The information contained in this document represents components of the legal health record. It is not the complete legal health record.[facility]
--- OUTSIDE RECORDS SUMMARY | 2025-09-16 20:52 | XMS_ITS | Encounter Summary ---
Author Organization [facility] Address [address] [facility] [address] [place] [address] Phone Care Team Providers Care Vibration Technician Name Role Phone Frankie Padron MD Primary Care Provider Saniya Tan MD Unavailable Domenic Goldsmith MD, PhD Unavailable [phone] Robert Lomax MD Unavailable Mary Sanon MD Unavailable [phone] Marcy Garvey RN Unavailable [email or web address] Davina Peraza RN Unavailable [email or web address] Davina Peraza RN Unavailable [email or web address] Encounter Details Date Type Department Care Team (Late st Contact Info) Description 08/23/2019 Procedure Pass [facility] PERIOPER[facility]IVE [facility]PT [address] [place] [address] Social History Tobacco Use Types Packs/Day Years [...] MRI, [facility] - [place] [address], [address] [place] [address] 08/12/[address], [facility] - [place] [address] [facility], [address] [place] [address] 08/12/[address], [facility] - [place] [address], [address] [place] [address] 08/12/2025 Procedure Pass MRI, [facility] - [place] [address] [place] [address], [address] [place] [address] 10/14/2025 1:00 PM EST Office Visit [facility] [address] 9th [place] [address] Bettina Braden MD [address] [place] [address] MARTÍN@[email or web address] 10/19/2025 3:00 PM EST Infusion [facility] at [address] [address] Hany Leach MD 02/06/2026 10:30 AM EDT Blood Draw [facility] Lab [address] [place] [address] Saniya Tan MD [address] [place] [address] DIALLO@[email or web address] 02/06/2026 11:[address], [facility] - [place] [address] [facility], [address] [place] [address] Saniya Tan MD [address] [place] [address] DIALLO@[email or web address] 02/06/2026 12:30 PM EDT Appointment MRI, [facility] - [place] [address] [facility], [address] [place] [address] Saniya Tan MD [address] [facility] 7[address] [place] [address] DIALLO@[email or web address] 02/07/2026 9:30 AM EDT Appointment MRI, [facility] [place] [address] [facility], [address] [place] [address] Domenic Goldsmith MD, PhD [address] [facility] 7[address] [place] [address] [email or web address] 02/14/2026 11:00 AM EDT Office [facility] [address] [facility], 7th Floor, [address] [place] [address] Saniya Tan MD [address] [facility] [address] [place] [address] DIALLO@[email or web address] 02/14/2026 11:00 AM EDT Office Visit [facility] [address] [facility], 7th Floor, [address] [place] [address] Roxaan Ornelas MD [address] [facility] 3 [place] [address] CHIN@[email or web address] 02/21/2026 10:00 AM EDT Telemedicine - audio only [facility] General & Gastrointestinal Surgery [address] [facility], 4th Floor, [address] [place] [address] Janie Blackmon FNP 55 [facility] 460 [place] [phone] [email or web address] [email or web address] g documented as of this encounter Visit Diagnoses Not on filedocumented in this encounter Additional Health Concerns Infection Onset Date Last Indicated Resolved Time Influenza 11/01/2019 11/01/2019 11/08/2019 1:23 AM EST documented as of this encounter Care Teams Vibration Technician Relationship Specialty Start Date End Date Frankie Padron MD [address] [place] [address] Dr UREÑ[place] [address] PCP - General Internal Medicine 07/16/19 Saniya Tan MD [address] [place] [address] [email or web address] Primary Oncologist Medical Oncology 12/22/20 Domenic Goldsmith MD, PhD [address] [place] [address] [place] [address] [email or web address] Surgical Oncology 01/11/21 Robert Lomax MD [address] [facility] [address] [place] [address] MARCELA@[email or web address] Cardiothoracic Surgery 07/03/22 08/18/23 Mary Sanon MD [address] [facility] 3 [place] [address] maria [email or web address] Radiation Oncology 07/03/22 Marcy Garvey RN [address] [address] [email or web address] Primary Infusion Nurse 10/23/23 11/19/23 Davina Peraza RN Associate Infusion Nurse 10/29/23 11/19/23 Davina Peraza RN 55 [place] [address] [email or web address] [email or web address] Primary Infusion Nurse 11/20/23 documented as of this encounter Additional Source Comments The information contained in this document represents components of the legal health record. It is not the complete legal health record.[facility]
== END 2025-09-16 14:44 | disposition home or self-care (01) ==
LOC: HO.HMCHD 13:59
PROVIDERS: PCP Physician Assistant; Visit Provider Physician Assistant
DX: I10 Essential (primary) hypertension (principal); A04.72 Enterocolitis due to Clostridium difficile, not specified as recurrent; C18.9 Malignant neoplasm of colon, unspecified; N17.9 Acute kidney failure, unspecified; Z09 Encounter for follow-up examination after completed treatment for conditions other than malignant neoplasm

== ENCOUNTER → 2025-09-16 13:58 | Outpatient (BNVA) | payer MEDICARE, SELFPAY | PROVIDERS: PCP Physician Assistant; Visit Provider Physician Assistant | DX: I10 Essential (primary) hypertension (principal); A04.72 Enterocolitis due to Clostridium difficile, not specified as recurrent; C18.9 Malignant neoplasm of colon, unspecified; N17.9 Acute kidney failure, unspecified; Z09 Encounter for follow-up examination after completed treatment for conditions other than malignant neoplasm | CPT/HCPCS: 99212 ==